=== PATIENT | male | born 1945 | race Caucasian/White ===

== ENCOUNTER 2025-04-21 15:36 | Inpatient (IN) | payer MEDICARE, SELFPAY ==
[2025-03-25 16:48] LABS: Hematocrit 44.7 % (40-54); Hemoglobin 16.1 g/dL (13.0-16.5); Immature Granulocytes Count 0.020 X10^3/uL (0.0-0.0); Mean Corp Hgb Conc 36.0 g/dL (32-36); Mean Corpuscular Volume 95.1 fL (80-94); Mean Platelet Vol. 8.9 fl (6.2-12.0); NRBC Flagged by Analyzer 0 % (0-5); Platelet Count 407 K/mm3 (150-450); RBC Distribution Width CV 12.3 % (11.6-14.6); RBC Distribution Width SD 43.3 fl (35.1-43.9); Red Blood Count 4.70 M/mm3 (4.6-6.2); White Blood Count 7.1 K/mm3 (4.4-11.0)
[2025-03-25 17:26] LABS: AST(SGOT) 18 U/L (<=37); Alanine Aminotransfer ALT/SGPT 17 U/L (<=46); Albumin, Serum 4.4 g/dL (3.4-4.8); Alkaline Phosphatase 92 U/L (40-129); Anion Gap 14 (5-15); BUN 9 mg/dL (4-19); BUN/Creat Ratio 12.1 RATIO (10-20); Bilirubin, Direct 0.25 mg/dL (0.00-0.30); Calcium,Total 9.7 mg/dL (7.6-11.0); Carbon Dioxide 24.1 mmol/L (21.0-32.0); Chloride 96 mmol/L (98-108); Globulin 3.2 g/dL (2.2-4.2); Glucose 124 mg/dL (70-99); Potassium 3.9 mmol/L (3.3-5.1)
[2025-03-25 17:41] LABS: Prothrombin Time (Protime)PT. 13.0 SECONDS (11.7-14.9)
[2025-03-25 17:42] LABS: Partial Thromboplast Time 29.2 Seconds (24.1-36.2)
--- NOTE | 2025-04-03 16:36 | PAT.ANESEVAL ---
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 When Was Last Pacemaker Check QUESTION #4 FULL TEXT: You/Your Family Experience fever (hyperthermia) with Anesthesia Last Oral Intake Last Oral intake: Last Oral Intake NPO since Meds taken in AM with sips of water? Meds patient instructed to take am of surgery PONV PONV - chief enterprise architect: PONV - chief enterprise architect Female No 04/03/25 11:09 HX of Motion Sickness No 04/03/25 11:09 HX of N/V After Surgery No 04/03/25 11:09 Non-Smoker No 04/03/25 11:09 Duration of Surgery greater Yes 04/03/25 11:09 than 60 minutes Number of Risk Factors 1 04/03/25 11:09 PONV Score Low Risk 04/03/25 11:09 Respiratory Assessment Respiratory Assessment - chief enterprise architect: Respiratory Tract Infection Hx - chief enterprise architect Hx Respiratory Tract Infection No 04/03/25 11:09 STOP Sleep Apnea STOP Sleep Apnea - chief enterprise architect: STOP Sleep Apnea - chief enterprise architect Hx Hypertension Yes: CONTROLLED WITH MEDS 04/03/25 11:09 Hx Sleep Apnea No 04/03/25 11:09 CPAP BIPAP Do you snore loudly (louder No 04/03/25 11:09 than talking or can be heard Do you often feel tired/ Yes 04/03/25 11:09 fatigued/ sleepy during daytime? Has anyone observed you stop No 04/03/25 11:09 breathing during sleep? STOP Results Positive 04/03/25 11:09 QUESTION #5 FULL TEXT : Do you snore loudly (louder than talking or can be heard through closed doors)? 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 Specify any problems Hx of Preganancy in last 3 N/A 04/03/25 11:09 Months Nurse Filling Out Transfusion DSCHRIBER 04/03/25 11:09 & Questions: Date: 04/03/25 04/03/25 11:09 Time: 11:11 04/03/25 11:09 Patient unable to answer at this time (ie. confused, unrespo /Reproduction History /Reproductive History - chief enterprise architect: /Reproductive Hx- chief enterprise architect Hx Now No 04/03/25 11:09 Gestational Age (in weeks): EDC: Hx Hx Para Hx Section SAB No 04/03/25 11:09 [facility] Medical History (Updated 04/03/25 @ 11:18 by Kavitha Sharma) Wears glasses Wears dentures Alcohol use High cholesterol Shortness of breath on exertion Leg cramps History of pain when walking History of echocardiogram History of stress test Cardiology follow-up encounter Peripheral arterial disease Smoker Sinus tachycardia Mixed hyperlipidemia LVH (left ventricular hypertrophy) Essential (primary) hypertension Home Medications ?Medication ?Instructions ?Recorded ?Last Taken ?Type aspirin 81 mg tablet 81 mg PO QDAY HEART HEALTH 02/27/25 Unknown History atorvastatin 40 mg tablet (Lipitor) 40 mg PO QHS CHOLESTEROL 02/27/25 Unknown History cilostazol 100 mg tablet 100 mg PO BID PVD 02/27/25 Unknown History lisinopril 20 2 tab PO QDAY BP 02/27/25 Unknown History mg-hydrochlorothiazide 12.5 mg tablet metoprolol succinate 25 mg 25 mg PO BID BP 02/27/25 Unknown History tablet,extended release 24 hr clopidogrel 75 mg tablet (Plavix) 75 mg PO DAILY PVD 90 days #90 tabs 03/25/25 Unknown Rx Allergy/AdvReac Type Severity Reaction Status Date / Time No Known Allergies Allergy Verified 04/03/25 11:04 Surgical History (Updated 04/03/25 @ 11:18 by Kavitha Sharma) History of esophagogastroduodenoscopy (EGD) Hx of colonoscopy Social History Smoking Status: Heavy Smoker (>10/day) Tobacco: How many years used: 56 alcohol intake: current alcohol intake frequency: 3 or more drinks per day Alcohol type: beer details: 7-8 beers daily substance use type: does not use caffeine: Yes Audit: Pertinent Findings Pertinent Findings Stress test pertinent findings: Echo 01/31/2025. EF 65%. Grade 1 left ventricular diastolic dysfunction. No significant valvular abnormalities Consult pertinent findings: Cardiology note 03/25/2025. 79-year-old white male being seen as a new patient for preop clearance. Patient has a history of severe bilateral carotid disease. CTA showed 80% in the right internal carotid artery 90% in the left internal carotid artery he was evaluated by Dr. Marion and is planned for surgical intervention on April 21, 2025. Patient had an echo on January 30 which showed the left ventricle to be small with mild LVH normal systolic function EF of 65%. He had grade 1 diastolic dysfunction the right ventricle was normal in size and function there was systolic anterior motion of the left ventricular outflow tract gradient 37 mmHg at rest that increased to 71 with Valsalva. Patient also had pharmacologic nuclear stress test which showed no evidence of scarred myocardium there was a question of mild last than 10% ischemia in the territory of the left circumflex. There was also mild ischemia in the distribution of the LAD but once again there was soft tissue attenuation. Plan. From a cardiac vascular standpoint I feel the patient can proceed with surgical intervention on his carotid disease. The patient is at risk but given his carotid anatomy and his lack of any cardiovascular symptoms I would recommend that he go ahead and proceed. Recommendation Anesthesia Recommendation Anesthesia recommendation: OPTIMIZED for anesthesia
[2025-04-21] VITALS (36 sets, daily range): BP systolic 116–185; BP diastolic 46–86; PULSE 65–92; RESP 15–20; TEMP 36.2–36.8; O2SAT 89–97; BMI 30.6
--- OUTSIDE RECORDS SUMMARY | 2025-04-21 07:14 | XMS RPT_ITS | CCD ---
Author Organization [facility] Care Team Providers Care Veterans Service Officer Name Role Phone Sheets DORenetta Primary Care Provider Sheets DORenetta Primary Care Provider Juan Miguel Rodriguez MD Unavailable Unavailab le JUAN MIGUEL RODRIGUEZ Referring Unavailable SHEETS, RENETTA Johns Primary Care Unavailable JENNIFER, JUAN MIGUEL FERRIS Referring Unavailable SHEETS, RENETTA C Primary Care Unavailable SELIGSON, ANTHONY Referring Unavailable SHEETS, RENETTA C Primary Care Unavailable JENNIFERJUAN MIGUEL ALICEA Attending Unavailable SELIGSON, ANTHONY Referring Unavailable SHEETS, RENETTA C Primary Care Unavailable SELIGSON, ANTHONY Attending Unavailable SHEETS, RENETTA C Primary Care Unavailable SELIGSON, ANTHONY Attending Unavailable SHEETS, RENETTA C Referring Unavailable SHEETS, RENETTA C Primary Care Unavailable SELIGSON, ANTHONY Referring Unavailable SHEETS, RENETTA C Primary Care Unavailable SELIGSON, ANTHONY Referring Unavailable SHEETS, RENETTA C Primary Care Unavailable SELIGSON, ANTHONY Attending Unavailable SELIGSON, ANTHONY Referring Unavailable SHEETS, RENETTA C Primary Care Unavailable Sheets Dr. Renetta DOWNEY Primary Care Physician Dr. Rojas Marion MD Attending Physician [phone] Anthony Egan MD Referring Provider Sheets Dr. Renetta DOWNEY Referring Provider Dr. Kim Corral MD Attending Physician MARLYN, RENETTA Johns Attending Unavailable SHEETS, RENETTA C Referring Unavailable SHEETS, RENETTA C Primary Care Unavailable SELIGSON, ANTHONY Referring Unavailable SHEETS, RENETTA C Primary Care Unavailable SELIGSON, ANTHONY Referring Unavailable SHEETS, RENETTA C Primary Care Unavailable SHEETS, RENETTA C Attending Unavailable SHEETS, RENETTA C Primary Care Unavailable Rojas Marion Attending Unavailable Sheets, [place] Primary Care Unavailable Anthony Egan Referring Unavailable Sheets, [place] Primary Care Unavailable Sheets, [place] Referring Unavailable Kim Corral Attending Unavailable Rojas Marion Referring Unavailable Sheets, [place] Primary Care Unavailable Rojas Marion Admitting Unavailable Rojas Marion Attending Unavailable Medications Current Medications Medication Drug Class(es) Dates Sig (Normalized) Sig (Original) aspirin 81 mg oral tablet (20 sources) Platelet Aggregation Inhibitor, Nonsteroidal Anti-inflammatory Drug Start: 02-27-2025 take 1 tablet by mouth once daily Aspirin 81 mg tablet Active 81 mg PO daily February 27, 2025 12:00am HEART [employer] Complies with drug therapy Start: 2024 take 1 tablet by kelly th once daily aspirin, enteric coated (ADULT LOW DOSE ASPIRIN) 81 mg EC tablet Take 1 tablet by mouth once daily. 2024 Active End: 03-28-2023 take 1 tablet by mouth once daily aspirin, enteric coated (ASPIRIN, ENTERIC COATED) 81 mg EC tablet Take 81 mg by mouth once daily. 0 03/28/2023 Discontinued (Other) Comment on above: Take 81 mg by mouth once daily. atorvastatin 40 mg oral tablet (20 sources) HMG-CoA Reductase Inhibitor Start: take 1 tablet by mouth at bedtime Atorvastatin (Lipitor) 40 mg tablet Active 40 mg PO AT BEDTIME February 27, 2025 12:00am CHOLESTEROL Complies with drug therapy Start: 06-07-2021 End: 11-19-2024 take 1 tablet by mouth once daily atorvastatin (LIPITOR) 40 mg tablet Indications: Mixed hyperlipidemia Take 1 tablet by mouth once daily. 30 tablet 2 11/19/2024 Active Comment on above: take 1 tablet by kelly th once daily Take 1 tablet by kelly th once daily. cilostazol 100 mg oral tablet (20 sources) Phosphodiesterase 3 Inhibitor Start: 02-28-20 take 1 tablet by mouth twice daily Cilostazol 100 mg tablet Active 100 mg PO TWICE A DAY February 27, 2025 12:00am PVD Complies with drug therapy Start: 08-20-2021 End: 11-19-2024 take 1 tablet by mouth twice daily cilostazol (PLETAL) 100 mg tablet Indications: Peripheral artery disease Take 1 tablet by mouth two times a day. 60 tablet 2 11/19/2024 Active Comment on above: Take 1 tablet by kelly th twice daily. take 1 tablet by kelly th twice a day clopidogrel 75 mg oral tablet (2 sources) P2Y12 Platelet Inhibitor Start: 03-19-20 End: 03-25-20 take 1 tablet by mouth once daily Clopidogrel (Plavix) 75 mg tablet Active 75 mg PO DAILY 90 90 0 March 25, 2025 3:49pm June 22, 2025 1:00am PVD Complies with drug therapy hydroCHLOROthiazide 12.5 mg / lisinopril 20 mg oral tablet (20 sources) Thiazide Diuretic, Angiotensin Converting Enzyme Inhibitor Start: 02-28-20 Lisinopril-Hydroch lorothiazide 20-12.5 mg tablet Active 2 {tbl} PO daily February 27, 2025 12:00am BP Complies with drug therapy Start: 06-09-2023 End: 11-19-2024 take 2 tablets by mouth once daily lisinopril-hydroCHLOROthiazide (ZESTORET IC) 20-12.5 mg per tablet Indications: Essential hypertension TAKE 2 TABLETS BY MOUTH ONCE DAILY. 60 tablet 2 11/19/2024 Active Start: 11-02-2022 take 2 tablets by mouth once daily lisinopril-hydroCHLOROthiazide (ZESTORET IC) 20-12.5 mg per tablet Indications: Essential hypertension take 2 tablets by mouth once daily 60 tablet 5 11/02/2022 Active Start: 08-20-2021 End: 04-01-2022 take 2 tablets by mouth once daily lisinopril-hydroCHLOROthiazide (PRINZIDE,ZESTORETIC) 20-12.5 mg per tablet Indications: Essential hypertension Take 2 tablets by mouth once daily. 60 tablet 5 04/01/2022 Active Comment on above: Take 2 tablets by mo uth once daily. take 2 tablets by mo uth once daily 24 hr metoprolol succinate 25 mg extended release oral tablet (20 sources) beta-Adrenergic Yas Start: 02-27-2025 take 1 tablet by mouth twice daily Metoprolol Succinate 25 mg tablet extended release 24 hr Active 25 mg PO TWICE A DAY February 27, 2025 12:00am BP Complies with drug therapy Start: 01-28-2025 take 1 tablet by kelly th twice daily metoprolol succinate ER (TOPROL XL) 25 mg 24 hr tablet Indications: Essential hypertension , Sinus tachycardia Take 1 tablet by mouth two times a day. 180 tablet 2 01/28/2025 Active Start: 01-23-2024 End: 01-28-2025 take 0.5 tablet by mouth every hour metoprolol succinate ER (TOPROL XL) 25 mg 24 hr tablet Indications: Essential hypertension , Sinus tachycardia TAKE 1/2 (ONE-HALF) OF A TABLET BY MOUTH every afternoon. 15 tablet 2 11/19/2024 01/28/2025 Discontinued Start: 08-20-2021 End: 01-22-2024 take 0.5 tablet by mouth once daily metoprolol succinate ER (TOPROL XL) 25 mg 24 hr tablet Indications: Sinus tachycardia , Essential hypertension take 1/2 tablet by mouth once daily 15 tablet 5 11/01/2023 01/22/2024 Discontinued Comment on above: Take 0.5 tablets by mouth once daily. take 1/2 tablet by m outh once daily Completed/Discontinued Medications Medication Drug Class(es) Dates Sig (Normalized) Sig (Original) 2 ml gentamicin 40 mg/ml injection (2 sources) Start: 10-11-2023 End: 10-11-2023 gentamicin 40 mg/mL 160 mg injection Start: 10-11-2023 End: 10-11-2023 gentamicin 40 mg/mL 160 mg i njection iv contrast (will be provided with radiology test) (3 sources) Start: 12-19-2024 End: 01-28-2025 inject 1 dose intravenously once iv contrast (will be provided with radiology test) CTA Head/Neck W No IV access, insert saline lock prior to the sedation, infusion, injection for imaging exam. Discontinue saline lock post exam. If Pt. has a central line or IVAD, may access for administration according to line specific nursing protocol. Once exam is complete flush line and de-access according to line specific nursing protocol in the CT contrast administration guidelines link. 1 each 12/19/2024 01/28/2025 Discontinued Start: 12-19-2024 inject 1 dose intravenously on ce iv contrast (will be provided with radiology test) CTA Head/Neck W No IV access, insert saline lock prior to the sedation, infusion, injection for imaging exam. Discontinue saline lock post exam. If Pt. has a central line or IVAD, may access for administration according to line specific nursing protocol. Once exam is complete flush line and de-access according to line specific nursing protocol in the CT contrast administration guidelines link. 1 each 12/19/2024 Active levoFLOXacin 750 mg oral tablet (2 sources) Quinolone Antimicrobial Start: 10-11-2023 End: 10-12-2023 take 1 tablet by mouth once daily levoFLOXacin (LEVAQUIN) 750 mg tablet Take 1 tablet by mouth once daily for 1 day. Take on the day after your procedure 1 tablet 0 10/11/2023 10/12/2023 Start: 08-30-2023 End: 09-02-2023 levoFLOXacin (LEVAQUIN) 750 mg tablet Take 1 tablet by mouth once daily for 3 days. Start day before procedure and take for 3 consecutive days 3 tablet 0 08/30/2023 09/02/2023 Active Comment on above: Take 1 tablet by [facility] daily for 3 days. Start day before procedure and take for 3 consecutive days regadenoson 0.4 mg injection (LEXISCAN) (2 sources) Start: 01-30-2025 End: 01-30-2025 regadenoson 0.4 mg injection (LEXISCAN) Start: 01-30-2025 End: 01-30-2025 0.4 mg, INTRAVENOUS, ONCE, 1 dose, On Arleen 01/30/25 at 1430, Give 0.4 mg (5 mL) over ~10 seconds, followed immediately by a 5 mL saline flush. Wait 10-20 seconds, then administer the radionuclide myocardial perfusion imaging agent. Problems Active Problems Problem Classification Problem Date Documented Da te Episodic/Chronic Alcohol-related disorders (20 sources) Continuous chronic alcoholism; Translations: [Alcohol dependence, uncomplicated] Onset: 03-28-2023 03-28-2023 Chronic Cardiac dysrhythmias (20 sources) Sinus tachycardia; Translations: [Tachycardia, unspecified] Onset: 10-15-2021 Episodic Chronic ulcer of skin (20 sources) Non-pressure chronic ulcer of other part of left foot with unspecified severity; Translations: [Ulcer of other part of foot] Onset: 12-27-2017 Resolved: 08-14-2018 08-14-2018 Chronic Coronary atherosclerosis and other heart disease (14 sources) Silent myocardial ischemia; Translations: [Silent myocardial ischemia] Onset: 01-28-2025 01-28-2025 Chronic Disorders of lipid metabolism (20 sources) Mixed hyperlipidemia; Translations: [Mixed hyperlipidemia] Onset: 12-27-2017 12-27-2017 Chronic Essential hypertension (20 sources) Essential hypertension; Translations: [Essential (primary) hypertension] Onset: 12-27-2017 Chronic Comment on above: CONTROLLED WITH MEDS Hyperplasia of prostate (1 source) Benign prostatic hyperplasia; Translations: [Benign prostatic hyperplasia without lower urinary tract symptoms] 10-27-2023 Chronic Neoplasms of unspecified nature or uncertain behavior (1 source) Essential thrombocythemia; Translations: [Essential (hemorrhagic) thrombocythemia] Chronic Occlusion or stenosis of precerebral arteries (19 sources) Bilateral stenosis of carotid arteries; Translations: [Occlusion and stenosis of bilateral carotid arteries] Onset: 12-19-2024 12-19-2024 Chronic Other and ill-defined heart disease (20 sources) Left ventricular hypertrophy; Translations: [Cardiomegaly] Onset: 11-26-2020 11-26-2020 Chronic Other and ill-defined heart disease (1 source) Cardiomegaly; Translations: [LVH (left ventricular hypertrophy)] Onset: 11-26-2020 Chronic Other and ill-defined heart disease (2 sources) Other ill-defined heart diseases; Translations: [Acquired left ventricular outflow tract obstruction] 03-25-2025 Chronic Other circulatory disease (16 sources) Stenosis of left subclavian artery; Translations: [Stricture of artery] Onset: 11-17-2024 11-17-2024 Chronic Other circulatory disease (1 source) Stricture of artery; Translations: [Stenosis of left subclavian artery] Onset: 11-17-2024 Chronic Other circulatory disease (19 sources) Carotid bruit; Translations: [Other specified symptoms and signs involving the circulatory and respiratory systems] Onset: 11-17-2024 11-17-2024 Episodic Other circulatory disease (2 sources) Other specified symptoms and signs involving the circulatory and respiratory systems; Translations: [Right carotid bruit] Onset: 11-17-2024 Episodic Other lower respiratory disease (14 sources) Dyspnea on exertion; Translations: [Other forms of dyspnea] Onset: 01-28-2025 01-09-2025 Episodic Other lower respiratory disease (2 sources) Other forms of dyspnea; Translations: [Dyspnea on exertion] Onset: 01-28-2025 Episodic Other nutritional; endocrine; and metabolic disorders (20 sources) Obese class I; Translations: [Obesity, unspecified] Onset: 10-31-2017 Chronic Other nutritional; endocrine; and metabolic disorders (20 sources) Body mass index 30+ - obesity; Translations: [Body mass index (BMI) 30.0-30.9, adult] Onset: 10-01-2021 Chronic Other nutritional; endocrine; and metabolic disorders (20 sources) Amyloidosis; 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, unspecified] Onset: 10-04-2022 Chronic Other screening for suspected conditions (not mental disorders or infectious disease) (20 sources) Patient encounter status; Translations: [Encounter for screening for malignant neoplasm of prostate] Onset: 01-19-2018 Episodic Aggie-; endo-; and myocarditis; cardiomyopathy (except that caused by tuberculosis or sexually transmitted disease) (20 sources) Cardiomyopathy; Translations: [Other cardiomyopathies] Onset: 10-04-2022 Chronic Peripheral and visceral atherosclerosis (20 sources) Peripheral vascular disease, unspecified; Translations: [Peripheral vascular disease, unspecified] Onset: 10-15-2021 Chronic Comment on above: ON BLOOD THINNERS Residual codes; unclassified (1 source) Tobacco use and exposure - finding; Translations: [Tobacco use] 12-19-2024 Episodic Residual codes; unclassified (1 source) Tobacco use; Translations: [Tobacco use] Onset: 12-19-2024 Episodic Substance-related disorders (20 sources) Smoker; Translations: [Nicotine dependence, unspecified, uncomplicated] Onset: 04-01-2022 04-01-2022 Chronic Transient cerebral ischemia (6 sources) Carotid artery syndrome hemispheric; Translations: [Carotid artery syndrome (hemispheric)] Onset: 12-19-2024 12-24-2024 Chronic Unclassified (2 sources) Peripheral artery disease 09-25-2024 Unclassified (3 sources) Patient encounter status 01-28-2025 Unclassified (2 sources) Obesity, Class I, BMI 30-34.9; Translations: [Obesity, Class I, BMI 30-34.9] Onset: 10-31-2017 Unclassified (1 source) I65.23 - Occlusion and stenosis of bilateral carotid arteries,Z01.818 - Encounter for other preprocedural examination Unclassified (1 source) surgery clearance for left endartectomy on 04/21/25 Onset: 04-11-2025 Past or Other Problems Problem Classification Problem Date Documented Da te Episodic/Chronic Fracture of lower limb (20 sources) Closed fracture of calcaneus; Translations: [Nondisplaced fracture of body of right calcaneus, initial encounter for closed fracture] Onset: 03-09-2015 03-09-2015 Episodic Neoplasms of unspecified nature or uncertain behavior (20 sources) Thrombocytosis; Translations: [Thrombocytosis] Onset: 03-28-2023 Episodic Other gastrointestinal disorders (20 sources) Occult blood in stools; Translations: [Other fecal abnormalities] Onset: 01-19-2018 02-16-2018 Episodic Residual codes; unclassified (20 sources) History of clinical finding in subject; Translations: [Personal history of other specified conditions] Onset: 03-28-2023 03-28-2023 Episodic Results Test Name Value Interpretation Reference Range Facility [facility] LITA MEYER ([id number]) 1945 M Date Time Provider Department 04/16/25 RENETTA CLINECHAPITO During your visit today, we recorded the following information about you: Renetta Cline DO 04/16/2025 4:09 PM Signed ----- Message from Juan Miguel Rodriguez MD sent at 04/16/2025 2:31 PM EST ----- dalila Hdz for the delay in response, it will be better to postpone his carotid endarterectomy surgery and schedule him for cardiac catheterization prior to this operation as he does have two-vessel ischemia and he is at moderate risk for coronary artery events perioperatively. Thank you. ----- Message ----- From: Renetta Cline DO Sent: 04/11/2025 4:33 PM EST To: Juan Miguel Rodriguez MD [place], Dr. Rodriguez, I see that you reviewed Lita's stress test, and it indicates moderate risk. Is he cleared by you for left carotid endarterectomy scheduled for 04/21? Thanks DO Marlyn Vuong Kimberly C, DO 04/16/2025 4:13 PM Signed Please call pt - he will need to postpone his carotid artery surgery. He will need to see the liquor inspector for a heart catheterization before he can be cleared for the surgery. He should call the office of Dr. Rodriguez for f/u instructions regarding his abnormal stress test DO Shana Vuong LilianaMEENA 04/16/2025 4:43 PM Signed Tried calling pt. (It is [employer] .) it is full. Please try again tomorrow. Liliana PappaszakiMEENA Janie, MA 04/17/2025 3:58 PM Signed Tried to call patient no answer and not able to leave message. Left message informing patient's vascular office that of all information and that Dr. Cline will not be clearing patient until he has a heart catheterization. MEENA Jones Janie, MA 04/18/2025 11:37 AM Signed Received fax from [facility] Dr. Corral office visit note clearing patient for surgery. Placed on Dr. Cline desk to be reviewed. MEENA Jones Janie, MA 04/18/2025 12:09 PM Signed Karina from [facility] called back stating that Dr. Corral cardiology cleared patient and would like to know if Dr. Cline could please send her clearance also so patient can have his surgery as scheduled on Monday. Called Dr. Cline as she is out of the office and she states yes already signed clearance form may be faxed, she was just waiting to hear from cardiology that he was cleared. Left message informing Karina form has been faxed. Yury Erwin MA Allergies As of Date: 04/16/2025 (No Known Allergies) Date Reviewed: 04/11/2025 Reviewed by: Renetta Cline DO - Fully Assessed Prescriptions as of 04/18/2025 - cilostazol (PLETAL) 100 mg tablet TAKE 1 TABLET BY MOUTH TWICE DAILY - lisinopril-hydroCHLOR Othiazide (ZESTORETIC) 20-12.5 mg per tablet TAKE 2 TABLETS BY MOUTH ONCE DAILY - atorvastatin (LIPITOR) 40 mg tablet TAKE 1 TABLET BY MOUTH ONCE DAILY - metoprolol succinate ER (TOPROL XL) 25 mg 24 hr tablet Take 1 tablet by mouth two times a day. - aspirin, enteric coated (ADULT LOW DOSE ASPIRIN) 81 mg EC tablet Take 1 tablet by mouth once daily. Problem List As Of Date 04/16/2025 Noted Resolved Closed nondisplaced fracture of body of right c*03/09/2015 Obesity, Class I, BMI 30-34.9 [E66.811] 10/31/2017 Chronic ulcer of left foot (HCC) [L97.529] 12/27/2017 08/14/2018 Essential hypertension [I10] 12/27/2017 Mixed hyperlipidemia [E78.2] 12/27/2017 Encounter for screening colonoscopy [Z12.11] 01/19/2018 Heme positive stool [R19.5] 01/19/2018 LVH (left ventricular hypertrophy) [I51.7] 11/26/2020 BMI 31.0-31.9,adult [Z68.31] 10/01/2021 Peripheral artery disease (HCC) [I73.9] 10/15/2021 Sinus tachycardia [R00.0] 10/15/2021 Smoker [F17.200] 04/01/2022 Amyloidosis, 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] 10/04/2022 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] 10/04/2022 Thrombocytosis [D75.839] 03/28/2023 Alcohol dependence, daily use (HCC) [F10.20] 03/28/2023 History of elevated prostate specific antigen (*03/28/2023 Stenosis of left subclavian artery [I77.1] 11/17/2024 Right carotid bruit [R09.89] 11/17/2024 Carotid stenosis, asymptomatic, bilateral [I65.*12/19/2024 Encounter for screening for cardiovascular diso*01/28/2025 Dyspnea on exertion [R06.09] 01/28/2025 Silent myocardial ischemia [I25.6] 01/28/2025 Encounter Status:Closed by YURY ERWIN on 04/17/25 Normal [facility] Type AND Screen - PAT ONLYon 04-08-2025 ABO and Rh group Nom (Bld) Blood group AB Rh(D) positive Normal [facility] Comment on above: Order Comment: Surge ry Date: 04/21/25 Reason for Laboratory Test PREOP [id number] N/A N N S LEFT CAROTID ENDARTERECTOMY Performed By: #### B TSPAT #### [facility] [address] [place], [place], [id number] MR/PAT.ANEon 04-03-2025 MR/PAT.ANE [facility] Medical Records Department [address] [place] [address] PAT - Anesthesia 04/03/25 [id number] MR#: [id number] Acct: [id number] Name: LITA MEYER Rep #: [id number] : 1945 79 From: Ac Rodríguez MD PCP: Dr. Renetta Cline, DO Status:PRE IN Y Race: C Location: [facility] Pre-Assessment Diagnosis/Proposed Procedure Planned Operative Procedure(s): LEFT ENDARTERECTOMY CAROTID Anesthesia History Anesthesia History - crimper operator: Anesthesia History - crimper operator Hx Hospitalization No 04/03/25 11:09 Any Problems With Anesthesia No 04/03/25 11:09 Cholinesterase deficiency No 04/03/25 11:09 You/Your Family Experience No 04/03/25 11:09 fever (hyperthermia) with Relationship Recent Exposure to Contagious Disease Does patient have nerve No 04/03/25 11:09 stimulator Patient instructed to have device shut off --Does patient have Pacemaker or ICD? When Was Last Pacemaker Check QUESTION #4 FULL TEXT: You/Your Family Experience fever (hyperthermia) with Anesthesia Last Oral Intake Last Oral intake: Last Oral Intake NPO since Meds taken in AM with sips of water? Meds patient instructed to take am of surgery PONV PONV - crimper operator: PONV - crimper operator Female No 04/03/25 11:09 HX of Motion Sickness No 04/03/25 11:09 HX of N/V After Surgery No 04/03/25 11:09 Non-Smoker No 04/03/25 11:09 Duration of Surgery greater Yes 04/03/25 11:09 than 60 minutes Number of Risk Factors 1 04/03/25 11:09 PONV Score Low Risk 04/03/25 11:09 Respiratory Assessment Respiratory Assessment - crimper operator: Respiratory Tract Infection Hx - crimper operator Hx Respiratory Tract Infection No 04/03/25 11:09 STOP Sleep Apnea STOP Sleep Apnea - crimper operator: STOP Sleep Apnea - crimper operator Hx Hypertension Yes: CONTROLLED WITH MEDS 04/03/25 11:09 Hx Sleep Apnea No 04/03/25 11:09 CPAP BIPAP Do you snore loudly (louder No 04/03/25 11:09 than talking or can be heard Do you often feel tired/ Yes 04/03/25 11:09 fatigued/ sleepy during daytime? Has anyone observed you stop No 04/03/25 11:09 breathing during sleep? STOP Results Positive 04/03/25 11:09 QUESTION #5 FULL TEXT : Do you snore loudly (louder than talking or can be heard through closed doors)? 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 Specify any problems Hx of Preganancy in last 3 N/A 04/03/25 11:09 Months Nurse Filling Out Transfusion DSCHRIBER 04/03/25 11:09 Questions: Date: 04/03/25 04/03/25 11:09 Time: 11:11 04/03/25 11:09 Patient unable to answer at this time (ie. confused, unrespo /Reproductio n History /Reproductiv e History - crimper operator: /Reproductiv e Hx- crimper operator Hx Now No 04/03/25 11:09 Gestational Age (in weeks): EDC: Hx Hx Para Hx Section SAB No 04/03/25 11:09 [facility], [facility] Medical History (Updated 04/03/25 @ 11:18 by Kavitha Sharma) Wears glasses Wears dentures Alcohol use High cholesterol Shortness of breath on exertion Leg cramps History of pain when walking History of echocardiogram History of stress test Cardiology follow-up encounter Peripheral arterial disease Smoker Sinus tachycardia Mixed hyperlipidemia LVH (left ventricular hypertrophy) Essential (primary) hypertension Home Medications ???Medication ???Instructions ???Recorded ???Last Taken ???Type aspirin 81 mg tablet 81 mg PO QDAY [facility] 5 Unknown History atorvastatin 40 mg tablet (Lipitor) 40 mg PO QHS CHOLESTEROL Unknown History cilostazol 100 mg tablet 100 mg PO BID PVD 02/27/25 Unknown History lisinopril 20 2 tab PO QDAY BP 02/27/25 Unknown History mg-hydrochlorothiazid e 12.5 mg tablet metoprolol succinate 25 mg 25 mg PO BID BP 02/27/25 Unknown H istory tablet,extended release 24 hr clopidogrel 75 mg tablet (Plavix) 75 mg PO DAILY PVD 90 days #90 ta bs 03/25/25 Unknow (more content not included)... Normal [facility] Basic Metabolic Profile (BMP )on 03-25-2025 BUN/CRE 12.1 RATIO Normal 03-31 [facility] Comment on above: Performed By: #### L 300.4310, L500.2500, L500.3400, L300.3900, L100.0100 #### [facility] [address] [place], [address] Calcium [Mass/Vol] 9.7 mg/dL Normal 7.6-11.0 [facility] Comment on above: Performed By: #### L 300.4310, L500.2500, L500.3400, L300.3900, L100.0100 #### [facility] [address] [place], [address] Chloride [Moles/Vol] 96 mmol/L Low 98-108 [facility] Comment on above: Performed By: #### L 300.4310, L500.2500, L500.3400, L300.3900, L100.0100 #### [facility] [address] [place], [address] CO2 [Moles/Vol] 24.1 mmol/L Normal 21.0-32.0 [facility] Comment on above: Performed By: #### L 300.4310, L500.2500, L500.3400, L300.3900, L100.0100 #### [facility] [address] [place], [address] Creatinine [Mass/Vol] 0.72 mg/dL Normal 0.70-1.20 [facility] Comment on above: Performed By: #### L 300.4310, L500.2500, L500.3400, L300.3900, L100.0100 #### [facility] [address] [place], [address] GAP 14 Normal 5-15 [facility] Comment on above: Performed By: #### L 300.4310, L500.2500, L500.3400, L300.3900, L100.0100 #### [facility] [address] [place], [address] GFR/1.73 sq M.predicted among non-blacks MDRD (S/P/Bld) [Vol rate/Area] 94 mL/min/{1.73_m2} Normal >60 [facility] Comment on above: Result Comment: mL/m in/1.73m2 CKD-EPI Creatinine Equation (2020) Performed By: #### L 300.4310, L500.2500, L500.3400, L300.3900, L100.0100 #### [facility] [address] [place], [address] Glucose [Mass/Vol] 124 mg/dL High 70-99 [facility] Comment on above: Performed By: #### L 300.4310, L500.2500, L500.3400, L300.3900, L100.0100 #### [facility] [address] [place], [address] Potassium [Moles/Vol] 3.9 mmol/L Normal 3.3-5.1 [facility] Comment on above: Performed By: #### L 300.4310, L500.2500, L500.3400, L300.3900, L100.0100 #### [facility] [address] [place], [address] Sodium [Moles/Vol] 134 mmol/L Normal 133-145 [facility] Comment on above: Performed By: #### L 300.4310, L500.2500, L500.3400, L300.3900, L100.0100 #### [facility] [address] [place], [address] Urea nitrogen [Mass/Vol] 9 mg/dL Normal 4-19 [facility] Comment on above: Performed By: #### L 300.4310, L500.2500, L500.3400, L300.3900, L100.0100 #### [facility] [address] [place], [address] CBC W/Diff, Automatedon 10-1 Absolute Lymph 1.92 X10 3/uL Normal 0.83-4.51 [facility] Comment on above: Performed By: #### L 300.4310, L500.2500, L500.3400, L300.3900, L100.0100 #### [facility] [address] [place], [address] Absolute Neut 4.3 X10 3/uL Normal 2.0-7.7 [facility] Comment on above: Performed By: #### L 300.4310, L500.2500, L500.3400, L300.3900, L100.0100 #### [facility] [address] [place], [address] Basophils/100 WBC (Bld) 1.0 % Normal 0-1 [facility] Comment on above: Performed By: #### L 300.4310, L500.2500, L500.3400, L300.3900, L100.0100 #### [facility] [address] [place], [address] Eosinophils/100 WBC (Bld) 1.3 % Normal 0-5 [facility] Comment on above: Performed By: #### L 300.4310, L500.2500, L500.3400, L300.3900, L100.0100 #### [facility] [address] [place], [address] Erythrocyte distribution width (RBC) [Ratio] 12.3 % Normal 11.6-14.6 [facility] Comment on above: Performed By: #### L 300.4310, L500.2500, L500.3400, L300.3900, L100.0100 #### [facility] [address] [place], [address] Hematocrit (Bld) [Volume fraction] 44.7 % Normal 40-54 [facility] Comment on above: Performed By: #### L 300.4310, L500.2500, L500.3400, L300.3900, L100.0100 #### [facility] [address] [place], [address] Hemoglobin (Bld) [Mass/Vol] 16.1 g/dL Normal 13.0-16.5 [facility] Comment on above: Performed By: #### L 300.4310, L500.2500, L500.3400, L300.3900, L100.0100 #### [facility] [address] [place], [address] IG% 0.300 Normal 0.0-0.9 [facility] Comment on above: Result Comment: IG% - Immature Granulocytes (promyelocytes, myelocytes and metamyelocytes) > 1% indicates that a LEFT SHIFT is Present. Performed By: #### L 300.4310, L500.2500, L500.3400, L300.3900, L100.0100 #### [facility] [address] [place], [address] Lymphocytes/100 WBC (Bld) 27.1 % Normal 19-41 [facility] Comment on above: Performed By: #### L 300.4310, L500.2500, L500.3400, L300.3900, L100.0100 #### [facility] [address] [place], [address] MCH (RBC) [Entitic mass] 34.3 pg High 27.0-32.0 [facility] Comment on above: Performed By: #### L 300.4310, L500.2500, L500.3400, L300.3900, L100.0100 #### [facility] [address] [place], [address] MCHC (RBC) [Mass/Vol] 36.0 g/dL Normal 32-36 [facility] Comment on above: Performed By: #### L 300.4310, L500.2500, L500.3400, L300.3900, L100.0100 #### [facility] [address] [place], [address] MCV (RBC) [Entitic vol] 95.1 fL High 80-94 [facility] Comment on above: Performed By: #### L 300.4310, L500.2500, L500.3400, L300.3900, L100.0100 #### [facility] [address] [place], [address] Monocytes/100 WBC (Bld) 10.2 % High 0-10 [facility] Comment on above: Performed By: #### L 300.4310, L500.2500, L500.3400, L300.3900, L100.0100 #### [facility] [address] [place], [address] Neutrophils/100 WBC (Bld) 60.1 % Normal 47-70 [facility] Comment on above: Performed By: #### L 300.4310, L500.2500, L500.3400, L300.3900, L100.0100 #### [facility] [address] [place], [address] Nucleated RBC (Bld) [#/Vol] 0 10*3/uL Normal 0-5 [facility] Comment on above: Performed By: #### L 300.4310, L500.2500, L500.3400, L300.3900, L100.0100 #### [facility] [address] [place], [address] Platelet mean volume (Bld) [Entitic vol] 8.9 fL Normal 6.2-12.0 [facility] Comment on above: Performed By: #### L 300.4310, L500.2500, L500.3400, L300.3900, L100.0100 #### [facility] [address] [place], [address] Platelets (Bld) [#/Vol] 407 10*3/uL Normal 150-450 [facility] Comment on above: Performed By: #### L 300.4310, L500.2500, L500.3400, L300.3900, L100.0100 #### [facility] [address] [place], [address] RBC (Bld) [#/Vol] 4.70 10*6/uL Normal 4.6-6.[address] [facility] Comment on above: Performed By: #### L 300.4310, L500.2500, L500.3400, L300.3900, L100.0100 #### [facility] [address] [place], [place], [id number] RDW SD 43.3 fl Normal 35.1-43.9 [facility] Comment on above: Performed By: #### L 300.4310, L500.2500, L500.3400, L300.3900, L100.0100 #### [facility] [address] [place], [place], [id number] WBC (Bld) [#/Vol] 7.1 10*3/uL Normal 4.4-11.0 [facility] Comment on above: Performed By: #### L 300.4310, L500.2500, L500.3400, L300.3900, L100.0100 #### [facility] [address] [place], [place], [id number] [facility] 03-25-2025 [facility] Telephone (AGFAMPLE) LITA MEYER ([id number]) 1945 M Date Time Provider Department 03/25/25 RENETTA CLINE During your visit today, we recorded the following information about you: Yury Erwin MA 03/25/2025 2:22 PM Signed [facility] Surgical Clearance for Left Endarterectomy on 04/21/[address] Cline green folder to be filled out and signed. Krystal from [facility] also left message regarding this and states when patient was in their office his BP was 200. Please advise. MEENA Jones Kimberly C, DO 03/25/2025 2:48 PM Signed Please have pt make appt to see me for surgical clearance DO Marlyn Vuong Kimberly C, DO 03/28/2025 7:33 AM Signed It can be 20 minutes DO Cristian Vuong Janie, MA 03/28/2025 11:49 AM Signed Form received and placed in Dr. Cline green folder to be filled out and signed. MEENA Jones Kimberly C, DO 04/02/2025 12:27 PM Signed Pt needs appt Renetta Cline DO Allergies As of Date: 03/25/2025 (No Known Allergies) Date Reviewed: 02/07/2025 Reviewed by: Angelina Rojo OCCA - Fully Assessed Reason for Visit: Forms [913] Cmt: [facility] Surgical Clearance for Left Endarterectomy on 04/21/25 Prescriptions as of 04/02/2025 - metoprolol succinate ER (TOPROL XL) 25 mg 24 hr tablet Take 1 tablet by mouth two times a day. - cilostazol (PLETAL) 100 mg tablet Take 1 tablet by mouth two times a day. - atorvastatin (LIPITOR) 40 mg tablet Take 1 tablet by mouth once daily. - lisinopril-hydroCHLOR Othiazide (ZESTORETIC) 20-12.5 mg per tablet TAKE 2 TABLETS BY MOUTH ONCE DAILY. - aspirin, enteric coated (ADULT LOW DOSE ASPIRIN) 81 mg EC tablet Take 1 tablet by mouth once daily. Problem List As Of Date 03/25/2025 Noted Resolved Closed nondisplaced fracture of body of right c*03/09/2015 Obesity, Class I, BMI 30-34.9 [E66.811] 10/31/2017 Chronic ulcer of left foot (HCC) [L97.529] 12/27/2017 08/14/2018 Essential hypertension [I10] 12/27/2017 Mixed hyperlipidemia [E78.2] 12/27/2017 Encounter for screening colonoscopy [Z12.11] 01/19/2018 Heme positive stool [R19.5] 01/19/2018 LVH (left ventricular hypertrophy) [I51.7] 11/26/2020 BMI 31.0-31.9,adult [Z68.31] 10/01/2021 Peripheral artery disease (HCC) [I73.9] 10/15/2021 Sinus tachycardia [R00.0] 10/15/2021 Smoker [F17.200] 04/01/2022 Amyloidosis, 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] 10/04/2022 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] 10/04/2022 Thrombocytosis [D75.839] 03/28/2023 Alcohol dependence, daily use (HCC) [F10.20] 03/28/2023 History of elevated prostate specific antigen (*03/28/2023 Stenosis of left subclavian artery [I77.1] 11/17/2024 Right carotid bruit [R09.89] 11/17/2024 Carotid stenosis, asymptomatic, bilateral [I65.*12/19/2024 Encounter for screening for cardiovascular diso*01/28/2025 Dyspnea on exertion [R06.09] 01/28/2025 Silent myocardial ischemia [I25.6] 01/28/2025 Encounter Status:Closed by YURY ERWIN on 03/28/25 Normal [facility] Cardiology Visit Reporton Cardiology Visit Report [facility] [address] [place] [address] OFFICE VISIT Date of Service: 03/25/25 MR#: [id number] Acct: [id number] Name: LITA MEYER Rep #: [id number] : 1945 Provider: Dr. Kim petty MD Age/Sex: 79/M Location: [facility] Status: Signed HPI HPI History of Present Illness Details: Patient is a pleasant 79-year-old white male being seen as a new patient for preop clearance. Patient has a history of severe bilateral carotid disease. CTA showed 80% in the right internal carotid artery 90% in the left internal carotid artery he was evaluated by Dr. Marion and is plan for surgical intervention on April 21, 2025. After seeing Dr. Marion the patient was confused and did not get his Plavix filled. I went over that with him in detail and sent a new prescription into his pharmacy. The patient had an echocardiogram done January 30 which showed the left ventricle to be small with mild LVH normal systolic function EF of 65%. He had grade 1 diastolic dysfunction the right ventricle was normal in size and function there was systolic anterior motion left ventricular outflow tract gradient 37 mmHg at rest that increased to 71 with Valsalva. There were no significant valvular abnormalities. Compared to a previous echo from 2020 the LVOT gradients had increased. The patient denies any syncope or near syncope. He denies any chest pain denies any significant PND orthopnea. He does report dyspnea on exertion which has been stable over the last 6 months. Patient also had pharmacologic nuclear stress test which showed no evidence of scarred myocardium there was a question of mild less than 10% ischemia in the territory of the left circumflex. The left ventricle is normal in size and function the test was limited by arm and soft tissue attenuation. There was also mild ischemia in the distribution of the LAD but once again there was soft tissue attenuation. The patient lives alone he has an older brother who lives in an extended care facility in the [facility] he has no children he is never been . Intake Vital Signs 03/25/25 15:01 03/25/25 15:10 03/25/25 15:12 Height 5 ft 9 in Weight: 209 lb BMI 30.8 BP 196/91 H 138/74 H 152/76 H Blood Pressure Location Rt brachial Rt brachial Rt brachial Position Sitting Sitting Sitting Respiration 18 Pulse 100 Pulse Source Monitor Pulse Oximetry (%) 93 Oxygen Delivery Method room air Intake Visit Reasons: Pre-Op Cardiovasc. Assessment, FOR LICE, SEE NOTE [employer] Required: No Accompanied by: Self Is patient in pain?: No Allergies No Known Allergies Allergy (Verified 03/25/25 14:58) Medications ???Medication ???Instructions ???Recorded ???Confirmed ???Type aspirin 81 mg tablet 81 mg PO QDAY 02/27/25 03/25/25 Hi story atorvastatin 40 mg tablet (Lipitor) 40 mg PO QDAY 02/27/25 03/25/25 History cilostazol 100 mg tablet 100 mg PO BID 02/27/25 03/25/25 Hi story lisinopril 20 2 tab PO QDAY 02/27/25 03/25/25 Hi story mg-hydrochlorothiazid e 12.5 mg tablet metoprolol succinate 25 mg 25 mg PO BID 02/27/25 03/25/25 His tory tablet,extended release 24 hr clopidogrel 75 mg tablet (Plavix) 75 mg PO DAILY 90 days #90 tabs 1 014/25 10/14/25 Rx Ejection fraction %: 65 Have you fallen in the past year?: Yes [facility] Medical History Alcohol dependence Peripheral arterial disease Smoker Sinus tachycardia Mixed hyperlipidemia LVH (left ventricular hypertrophy) Essential (primary) hypertension Surgical History No significant past surgical history Social History Smoking Status: Heavy Smoker (>10/day) Tobacco: How many years used: 56 alcohol intake: current alcohol intake frequency: 3 or more drinks per day Alcohol type: beer details: 7-8 beers daily substance use type: does not use caffeine: Yes ROS Const Const: Negative for fatigue or weakness ENT ENT: Negative for dizziness or balance problems Cardio Chest Pain: No Palpitations: No Edema: None Muscle aches with walking: None Resp Respiratory: Positive for SOB with activity; Negative for SOB at rest or SOB orthopnea SOB lying down GI GI: Negative nausea, vomiting or heartburn Musc Musc: Negative for muscle weakness or balance problems Neuro Neuro: Negative for dizziness, lightheadedness, near syncope, syncope or weakness Endo Endo: Negative for fatigue Cardiology Exam Const Appearance: cooperative, comfortable, no acute distress and disheveled Nutritional Appearance: obese Patient with a significant resting tremor. Head Head: normal to inspection Eyes General: (more content not included)... Normal [facility] Liver Profileon 03-25-2025 Albumin [Mass/Vol] 4.4 g/dL Normal 3.4-4.8 [facility] Comment on above: Performed By: #### L 300.4310, L500.2500, L500.3400, L300.3900, L100.0100 #### [facility] [address] [place], [place], [id number] ALK PHOS 92 U/L Normal 40-129 [facility] Comment on above: Performed By: #### L 300.4310, L500.2500, L500.3400, L300.3900, L100.0100 #### [facility] [address] [place], [address] ALT [Catalytic activity/Vol] 17 U/L Normal <=46 [facility] Comment on above: Performed By: #### L 300.4310, L500.2500, L500.3400, L300.3900, L100.0100 #### [facility] [address] [place], [address] AST [Catalytic activity/Vol] 18 U/L Normal <=37 [facility] Comment on above: Performed By: #### L 300.4310, L500.2500, L500.3400, L300.3900, L100.0100 #### [facility] [address] [place], [address] Bilirubin [Mass/Vol] 0.59 mg/dL Normal 0.00-1.30 [facility] Comment on above: Performed By: #### L 300.4310, L500.2500, L500.3400, L300.3900, L100.0100 #### [facility] [address] [place], [address] Bilirubin.direct [Mass/Vol] 0.25 mg/dL Normal 0.00-0.30 [facility] Comment on above: Performed By: #### L 300.4310, L500.2500, L500.3400, L300.3900, L100.0100 #### [facility] [address] [place], [address] Globulin (S) [Mass/Vol] 3.2 g/dL Normal 2.2-4.2 [facility] Comment on above: Performed By: #### L 300.4310, L500.2500, L500.3400, L300.3900, L100.0100 #### [facility] [address] [place], [address] T PROT 7.6 g/dL Normal 5.9-8.4 [facility] Comment on above: Performed By: #### L 300.4310, L500.2500, L500.3400, L300.3900, L100.0100 #### [facility] [address] [place], [address] Partial Thromboplast Timeon 03-25-2025 aPTT Coag (Bld) [Time] 29.2 s Normal 24.1-36.2 [facility] Comment on above: Performed By: #### L 300.4310, L500.2500, L500.3400, L300.3900, L100.0100 #### [facility] [address] [place], [address] Prothrombin Time w/INRon INR Coag (PPP) [Relative time] 1.0 {INR} Normal [facility] Comment on above: Performed By: #### L 300.4310, L500.2500, L500.3400, L300.3900, L100.0100 #### [facility] [address] [place], [address] PT Coag (PPP) [Time] 13.0 s Normal 11.7-14.9 [facility] Comment on above: Performed By: #### L 300.4310, L500.2500, L500.3400, L300.3900, L100.0100 #### [facility] [address] [place], [address] MR/BMS.BVSon 03-19-2025 MR/BMS.BVS [facility] [address] [place] [address] OFFICE VISIT Date of Service: 03/19/25 MR#: [id number] Acct: [id number] Name: LITA MEYER Rep #: [id number] : 1945 Provider: Dr. Rojas Marion MD Age/Sex: 79/M Location: BMS.BVS Status: Signed Intake Vital Signs 03/19/25 15:05 Weight: 209 lb BP 161/90 H Blood Pressure Location Lt brachial Position Sitting Respiration 16 Pulse 92 Pulse Source Monitor Temp 98.2 F Temp Source Temporal Pulse Oximetry (%) 96 Oxygen Delivery Method room air Intake Visit Reasons: Carotid Stenosis Is patient in pain?: No Allergies No Known Allergies Allergy (Verified 03/19/25 15:06) Medications ???Medication ???Instructions ???Recorded ???Confirmed ???Type aspirin 81 mg tablet 81 mg PO QDAY 02/27/25 03/19/25 Hi story atorvastatin 40 mg tablet (Lipitor) 40 mg PO QDAY 02/27/25 03/19/25 History cilostazol 100 mg tablet 100 mg PO BID 02/27/25 03/19/25 Hi story lisinopril 20 2 tab PO QDAY 02/27/25 03/19/25 Hi story mg-hydrochlorothiazid e 12.5 mg tablet metoprolol succinate 25 mg 25 mg PO BID 02/27/25 03/19/25 His tory tablet,extended release 24 hr clopidogrel 75 mg tablet (Plavix) 75 mg PO DAILY 90 days #90 tabs 1 03/19/25 Rx Have you fallen in the past year?: Yes PFSH Medical History Peripheral arterial disease Smoker Sinus tachycardia Mixed hyperlipidemia LVH (left ventricular hypertrophy) Essential (primary) hypertension Social History Smoking Status: Heavy Smoker (>10/day) Tobacco: How many years used: 56 alcohol intake: former HPI HPI HPI: LITA MEYER, is a 79 M who presents to the office today for evaluation of bilateral carotid disease, severe, asymptomatic. Initially found on duplex that was consistent with >70% stenosis bilateral and further evaluated at [facility] vascular surgery with a CTA. This confirm right 80% stenosis, left 90% stenosis. He had discussed surgery with them but to be performed at [facility]. He would prefer to stay closer to home so he is trasnferring care to [place]. No prior neck surgery/XRT, no limitation to ROM. No prior known coronary artery disease, no CP or SOB though minimal strenuous activity. ROS General General: No weight change, appetite, fatigue, colon cancer, breast cancer or weakness HEENT HEENT: No difficulty swallowing, eye injury, eye surgery, swollen glands or hoarseness Endo Endocrine: No thyroid disease, diabetes mellitus, thyroid cancer, Hair loss, heat intolerance or cold intolerance Skin Skin: No rash or changing moles Musc Musculoskeletal: No back problems, arthritis, rheumatoid arthritis, gout or joint pain Cardio Cardiovascular: Yes high blood pressure and shortness of breath with exertion; No murmur, pacemaker, heart disease, atrial fibrillation, heart attack, heart stent, palpitations or chest pain Psych Psychiatric: No depression, anxiety or hearing voices Resp Respiratory: No shortness of breath, No sleep apnea, No cough, No COPD, No asthma, No emphysema and No wheezing Gastro Gastrointestinal: No abdominal pain, No nausea or vomiting, No diarrhea, No constipation, No blood in stool, No acid reflux, No hemorrhoids, No ulcers, No gallbladder problem and No black,tarry stools Wally Hematologic: No blood thinners, No blood disorders, No bleeding, No anemia and No blood clots Neuro Neurologic: No system reviewed and no additional complaints, except as documented, No as per HPI, No abnormal gait, No abnormal hearing, No abnormal movements, No abnormal speech, No behavioral changes, No burning sensations, No confusion, No convulsions, Yes disequilibrium, No dizziness, No localized weakness, No frequent falls, No headache(s), No lack of coordination, No loss of vision, No memory loss, No numbness, No other visual disturbances, No radicular pain, No restless legs, No sensory deficit, No syncope, No tingling, Yes tremor(s), No weakness and No other Exam Const General: cooperative, healthy appearing, comfortable, no acute distress and well developed Nutritional Appearance: well nourished Orientation: alert, awake and oriented x3 HENMT Head: normocephalic and atraumatic Ears: hearing grossly normal bilaterally Nose: external nose normal Eyes General: appearance normal, both eyes and all related structures EOM: EOM intact bilaterally Neck Neck: normal visual inspection, full ROM, no lymphadenopathy and trachea midline Thyroid: thyroid normal Lymphatic: no lymphadenopathy noted Resp Effort Inspection: normal respiratory effort, able to speak in complete sentences, symmetric chest movement, no audible (more content not included)... Normal [facility] 02-14-2025 CNP[facility] Telephone (DIONYSMD) LITA MEYER ([id number]) 1945 M Date Time Provider Department 02/14/25 ANTHONY EGAN During your visit today, we recorded the following information about you: Sandi Soto 02/14/2025 10:43 AM Signed Mikala from [facility] received a referral for this patient to be seen in their offices. Mikala requesting recent testing reports to be faxed to the office at [phone]. Reports faxed via [employer]. Allergies As of Date: 02/14/2025 (No Known Allergies) Date Reviewed: 02/07/2025 Reviewed by: Angelina Rojo OCCA - Fully Assessed Prescriptions as of 02/14/2025 - metoprolol succinate ER (TOPROL XL) 25 mg 24 hr tablet Take 1 tablet by mouth two times a day. - cilostazol (PLETAL) 100 mg tablet Take 1 tablet by mouth two times a day. - atorvastatin (LIPITOR) 40 mg tablet Take 1 tablet by mouth once daily. - lisinopril-hydroCHLOR Othiazide (ZESTORETIC) 20-12.5 mg per tablet TAKE 2 TABLETS BY MOUTH ONCE DAILY. - aspirin, enteric coated (ADULT LOW DOSE ASPIRIN) 81 mg EC tablet Take 1 tablet by mouth once daily. Problem List As Of Date 02/14/2025 Noted Resolved Closed nondisplaced fracture of body of right c*03/09/2015 Obesity, Class I, BMI 30-34.9 [E66.811] 10/31/2017 Chronic ulcer of left foot (HCC) [L97.529] 12/27/2017 08/14/2018 Essential hypertension [I10] 12/27/2017 Mixed hyperlipidemia [E78.2] 12/27/2017 Encounter for screening colonoscopy [Z12.11] 01/19/2018 Heme positive stool [R19.5] 01/19/2018 LVH (left ventricular hypertrophy) [I51.7] 11/26/2020 BMI 31.0-31.9,adult [Z68.31] 10/01/2021 Peripheral artery disease (HCC) [I73.9] 10/15/2021 Sinus tachycardia [R00.0] 10/15/2021 Smoker [F17.200] 04/01/2022 Amyloidosis, 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] 10/04/2022 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] 10/04/2022 Thrombocytosis [D75.839] 03/28/2023 Alcohol dependence, daily use (HCC) [F10.20] 03/28/2023 History of elevated prostate specific antigen (*03/28/2023 Stenosis of left subclavian artery [I77.1] 11/17/2024 Right carotid bruit [R09.89] 11/17/2024 Carotid stenosis, asymptomatic, bilateral [I65.*12/19/2024 Encounter for screening for cardiovascular diso*01/28/2025 Dyspnea on exertion [R06.09] 01/28/2025 Silent myocardial ischemia [I25.6] 01/28/2025 Encounter Status:Closed by SANDI SOTO on 02/14/25 [facility] CNOVon 02-07-2025 CNOV Office Visit (VASRENETTAD ) LITA MEYER ([id number]) 1945 M Date Time Provider Department 02/07/25 1:00 PM ANTHONY EGAN During your visit today, we recorded the following information about you: Pulse Blood pressure 116/minute 137/83 Anthony Egan MD 02/07/2025 1:42 PM Signed [facility] ESTABLISHED CLINIC VISIT Lita Meyer [id number] HISTORY OF PRESENT ILLNESS: Mr. Meyer is a 79 year old male seen in clinic today for follow up for bilateral ICA stenosis. CT imaging showing 80% right ICA stenosis with distal decrease in caliber on the right as well as greater than 90% left ICA stenosis. Moderate stenosis of the origin of the left subclavian, right vertebral V3 V4 occlusion, narrowing of the left M2 branch, and occlusion of the intracranial right vertebral artery. He remains asymptomatic. He denies any chest pain or tightness, pressure or palpitations. No lightheadedness or dizziness with activity. He was seen by Dr. Rodriguez with cardiology and underwent a stress test which he reviewed and determined there was no significant ischemia of the LAD or left circumflex. He also evaluated the patient's dyspnea on exertion finding it related to his COPD and smoking. BP taken in both arms in office - L 137/87 R 208/93 Vascular health status: Antiplatelet / Anticoagulation: ASA 81 mg, pletal 100 mg Statin or PCSK9i: atorvastatin Vascular screening and surveillance: AAA - None 2018 CT abd/pel PAD - Following Carotid stenosis - Carotid duplex > 70% stenosis bilaterally MEDICATIONS: metoprolol succinate ER (TOPROL XL) 25 mg 24 hr tablet Take 1 tablet by mouth two times a day. cilostazol (PLETAL) 100 mg tablet Take 1 tablet by mouth two times a day. atorvastatin (LIPITOR) 40 mg tablet Take 1 tablet by mouth once daily. lisinopril-hydroCHLOR Othiazide (ZESTORETIC) 20-12.5 mg per tablet TAKE 2 TABLETS BY MOUTH ONCE DAILY. aspirin, enteric coated (ADULT LOW DOSE ASPIRIN) 81 mg EC tablet Take 1 tablet by mouth once daily. SOCIAL HISTORY: SOCIAL HISTORY[1] PAST MEDICAL HISTORY: PAST MEDICAL HISTORY Diagnosis Date Essential hypertension LVH (left ventricular hypertrophy) Mixed hyperlipidemia Peripheral arterial disease Sinus tachycardia Smoker PAST SURGICAL HISTORY: PAST SURGICAL HISTORY Procedure Laterality Date NONE ALLERGIES: ALLERGIES No Known Allergies Targeted ROS Comprehensive system review of systems did not reveal any pertinent positives or negatives except per HPI PHYSICAL EXAM: Focused Physical Exam: BP 137/83 Pulse 116 SpO2 95% General: WDWN in NAD Pulmonary: Non-labored on RA Coronary: Regular rate, no AMANDA or JVD, R carotid bruit Extremities: Normal range of motion DIAGNOSTIC TESTS REVIEWED FOR TODAY'S VISIT: Most recent labs and imaging results IMAGING RESULTS: 12/24/2024 CTA neck 1. 80% right internal carotid artery stenosis and 90% left internal carotid artery stenosis with some distal decreasing caliber of the left internal carotid artery noted 2. Moderate narrowing of the common carotid artery bilaterally 3. 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 Irregular high-grade stenosis of the cervical portion of the right vertebral artery in the V1 segment with irregular narrowing throughout and with occlusion of the vessel at the V3/V4 junction 5. Moderate narrowing of left M2 branch 6. Occluded intracranial right vertebral artery 01/30/2025 nuclear medicine cardiac stress test CONCLUSIONS: 1. SPECT Perfusion Study: Abnormal. 2. No evidence of scarred myocardium. 3. There is mild (<10%) ischemia in the territory of the LCX. 4. Left ventricle is normal in size. The left ventricle systolic function is normal. 5. Right ventricle is normal in size. The right ventricle systolic function is normal. 6. This is an intermediate risk scan. Probable LAD and Lcx ischemia in test limited significantly by arm and soft tissue attenuation. 7. There is mild (<10%) ischemia in the territory of the LAD. Gated Stress IR:3D LVEF % 65 12/10/2024 PVR leg bilateral RIGHT SIDE Resting right ankle brachial index: 0.66 Abnormal ankle brachial index at rest diagnostic of peripheral artery disease. Right ankle: Moderate disease at rest. LEFT SIDE Resting left ankle brachial index: 0.55 Abnormal ankle brachial index at rest diagnostic of peripheral artery disease. Left ankle: Moderate disease at rest. ASSESSMENT AND PLAN: Lita Meyer is a 79 year old male seen in follow up for severe asymptomatic bilateral carotid stenosis as well as asymptomatic L SCA stenosis. I reviewed the options for carotid revascularization with Mr. Meyer and in a shared decision-making process, he has elected to proceed with a left CEA. The technical aspects of CEA as well as the benefits (long-ter (more content not included)... Normal [facility] ECHOon 01-31-2025 CONCLUSIONS: - Exam indication: Hypertension - The left ventricle is small. There is mild left ventricular hypertrophy. Left ventricular systolic function is normal. EF = 65 5% (2D biplane). Grade I left ventricular diastolic dysfunction. - The right ventricle is normal in size. Right ventricular systolic function is normal. - There is TYRONE with an LVOT gradient of 37 mmHg at rest that increases to 71 mmHg with valsalva. - No significant valvular abnormalities. - Exam was compared with the prior echocardiographic exam performed on 10/01/20. The LVOT gradients have increased. * * * Final * * * [facility] Echocardiography Report: Transthoracic Echo [facility] Date of service: 01/31/2025 12:03:34 PM Ordering physician: ANTHONY EGAN Exam indication: Hypertension Technologist: Liliana Hensley [facility] Interpreting physician: Hank Love MD PATIENT: Name: MR. LITA MEYER : 1945 Age: 79 years Gender: M History of hypertension, dyslipidemia and cardiomyopathy. Primary rhythm: sinus. Height: 172.72 cm BSA: 2.14 m Weight: 95.71 kg BMI: 32.1 kg/m Heart rate 85 bpm Blood pressure 145/79 mmHg Color Doppler was utilized to interrogate the cardiac valves assessed and spectral Doppler was utilized to determine the flow velocities and pressure gradients reported in this exam. MEASUREMENTS: Value Indexed Normal Max aortic dimension 3.2 cm Ao < 3.8 Left atrium diameter 4.0 cm (2D) Left atrial volume 52 ml (Hernandez's) 25 ml/m Jose <= 34 LV ID (diastole) 4.5 cm (2D) 2.10 cm/m LV ID (systole) 2.8 cm (2D) 1.33 cm/m IVS, leaflet tips 1.4 cm (2D) Posterior wall thickness 1.1 cm (2D) Left ventricular mass 211 g (2D) 98 g/m LV stroke volume 60 ml (2D biplane) LV end diastolic volume 92 ml (2D biplane) 42.8 ml/m 34<=EDVi<75 LV end systolic volume 32 ml (2D biplane) 14.9 ml/m Ejection Fraction 65 % (2D biplane) EF > 52 FINDINGS: LEFT VENTRICLE The left ventricle is small. There is mild left ventricular hypertrophy. Left ventricular systolic function is normal. Grade I left ventricular diastolic dysfunction. Mitral annular lateral E/e': 10.5. Mitral annular septal E/e': 15.9. Wall Motion: All scored segments are normal. RIGHT VENTRICLE The right ventricle is normal in size. Right ventricular systolic function is normal. RV systolic tissue Doppler velocity is 21.8 cm/s. Tricuspid annular displacement is 2.4 cm. Estimated right ventricular systolic pressure is likely underestimated due to a weak or incomplete tricuspid regurgitation signal and is, at least, 26 mmHg consistent with normal pulmonary artery pressures. Estimated right atrial pressure is 3 mmHg based on IVC assessment. LEFT ATRIUM The left atrial cavity is normal in size. RIGHT ATRIUM The right atrial cavity is normal in size. Inferior Vena Cava: The inferior vena cava appears normal measuring 1.5 cm. The vessel decreases greater than 50 percent with inspiration. MITRAL VALVE There is moderate mitral annular calcification observed posterior. There is trace mitral valve regurgitation. The pressure half time is 77 msec. The peak mitral E/A ratio is 0.47. The average mitral E/e' ratio is 13.2. The mitral flow deceleration time is 266 msec. TRICUSPID VALVE The tricuspid valve leaflets are structurally normal. There is trace tricuspid valve regurgitation. AORTIC VALVE The aortic valve cusps are structurally normal. There is no aortic valve regurgitation. Tricuspid aortic valve. The peak gradient is 14 mmHg (peak velocity = 190.0 cm/s). PULMONIC VALVE The pulmonic valve was not seen or not interrogated. There is no pulmonic valve stenosis. The peak gradient is 7 mmHg. AORTA The visualized aorta is normal in size. Measurements - Sinus: 3.2 cm. INTERATRIAL SEPTUM There is no evidence of intracardiac shunting as detected by Doppler. INTERVENTRICULAR SEPTUM There is no flow through the interventricular septum as detected by Doppler. PERICARDIUM There is no pericardial effusion. There is an epicardial fat pad. [facility] Echocardiography Echocardiography Report: Transthoracic Echo [facility] Date of service: 01/31/2025 12:03:34 PM Ordering physician: ANTHONY EGAN Exam indication: Hypertension Technologist: Liliana Hensley [facility] Interpreting physician: Hank Love MD PATIENT: Name: MR. LITA MEYER : 1945 Age: 79 years Gender: M History of hypertension, dyslipidemia and cardiomyopathy. Primary rhythm: sinus. Height: 172.72 cm BSA: 2.14 m Weight: 95.71 kg BMI: 32.1 kg/m Heart rate 85 bpm Blood pressure 145/79 mmHg Color Doppler was utilized to interrogate the cardiac valves assessed and spectral Doppler was utilized to determine the flow velocities and pressure gradients reported in this exam. MEASUREMENTS: Value Indexed Normal Max aortic dimension 3.2 cm Ao < 3.8 Left atrium diameter 4.0 cm (2D) Left atrial volume 52 ml (Hernandez's) 25 ml/m Jose <= 34 LV ID (diastole) 4.5 cm (2D) 2.10 cm/m LV ID (systole) 2.8 cm (2D) 1.33 cm/m IVS, leaflet tips 1.4 cm (2D) Posterior wall thickness 1.1 cm (2D) Left ventricular mass 211 g (2D) 98 g/m LV stroke volume 60 ml (2D biplane) LV end diastolic volume 92 ml (2D biplane) 42.8 ml/m 34<=EDVi<75 LV end systolic volume 32 ml (2D biplane) 14.9 ml/m Ejection Fraction 65 % (2D biplane) EF > 52 FINDINGS: LEFT VENTRICLE The left ventricle is small. There is mild left ventricular hypertrophy. Left ventricular systolic function is normal. Grade I left ventricular diastolic dysfunction. Mitral annular lateral E/e': 10.5. Mitral annular septal E/e': 15.9. Wall Motion: All scored segments are normal. RIGHT VENTRICLE The right ventricle is normal in size. Right ventricular systolic function is normal. RV systolic tissue Doppler velocity is 21.8 cm/s. Tricuspid annular displacement is 2.4 cm. Estimated right ventricular systolic pressure is likely underestimated due to a weak or incomplete tricuspid regurgitation signal and is, at least, 26 mmHg consistent with normal pulmonary artery pressures. Estimated right atrial pressure is 3 mmHg based on IVC assessment. LEFT ATRIUM The left atrial cavity is normal in size. RIGHT ATRIUM The right atrial cavity is normal in size. Inferior Vena Cava: The inferior vena cava appears normal measuring 1.5 cm. The vessel decreases greater than 50 percent with inspiration. MITRAL VALVE There is moderate mitral annular calcification observed posterior. There is trace mitral valve regurgitation. The pressure half time is 77 msec. The peak mitral E/A ratio is 0.47. The average mitral E/e' ratio is 13.2. The mitral flow deceleration time is 266 msec. TRICUSPID VALVE The tricuspid valve leaflets are structurally normal. There is trace tricuspid valve regurgitation. AORTIC VALVE The aortic valve cusps are structurally normal. There is no aortic valve regurgitation. Tricuspid aortic valve. The peak gradient is 14 mmHg (peak velocity = 190.0 cm/s). PULMONIC VALVE The pulmonic valve was not seen or not interrogated. There is no pulmonic valve stenosis. The peak gradient is 7 mmHg. AORTA The visualized aorta is normal in size. Measurements - Sinus: 3.2 cm. INTERATRIAL SEPTUM There is no evidence of intracardiac shunting as detected by Doppler. INTERVENTRICULAR SEPTUM There is no flow through the interventricular septum as detected by Doppler. PERICARDIUM There is no pericardial effusion. There is an epicardial fat pad. CONCLUSIONS: - Exam indication: Hypertension - The left ventricle is small. There is mild left ventricular hypertrophy. Left ventricular systolic function is normal. EF = 65 5% (2D biplane). Grade I left ventricular diastolic dysfunction. - The right ventricle is normal in size. Right ventricular systolic function is normal. - There is TYRONE with an LVOT gradient of 37 mmHg at rest that increases to 71 mmHg with valsalva. - No significant valvular abnormalities. - Exam was compared with the prior echocardiographic exam performed on 10/01/20. The LVOT gradients have increased. * * * Final * * * [employer] [facility] [employer] : [id number] [id number] Normal [facility] CARDIAC PERF STRESS/PHARM on 01-30-2025 MD CARDIAC PERF STRESS/PHARM * * *Final Report* * * DATE OF EXAM: Jan 30 2025 2:45PM SENG 0006 - NM CARDIAC PERF STRESS/PHARM / PROCEDURE REASON: multiple diagnoses * * * * Physician Interpretation * * * * MD CTAC Report: [facility] Date of service: 01/30/2025 1:00:42 PM CTAC interpreting physician: Hank Love MD PATIENT: Name: MR. LITA MEYER Age: 79 years Gender: M 1. Incidental Findings from limited non-diagnostic CTAC: - Coronary calcifications visualized. - Mitral annulus calcification. * * * Final * * * -------- PATIENT: Name: MR. LITA MEYER Age: 79 years Gender: M CONCLUSIONS: 1. SPECT Perfusion Study: Abnormal. 2. No evidence of scarred myocardium. 3. There is mild (<10%) ischemia in the territory of the LCX. 4. Left ventricle is normal in size. The left ventricle systolic function is normal. 5. Right ventricle is normal in size. The right ventricle systolic function is normal. 6. This is an intermediate risk scan. Probable LAD and Lcx ischemia in test limited significantly by arm and soft tissue attenuation. 7. There is mild (<10%) ischemia in the territory of the LAD. Gated Stress IR:3D LVEF % 65 Prior Study Comparison No prior nuclear cardiology exam available for comparison. Nuclear Med Report:1-Day Gated SPECT Myocardial Perfusion with Regadenoson Stress: Myocardial perfusion imaging was performed at rest 30 minutes following the IV injection of the radiotracer. The patient received 0.4 mg of regadenoson, via rapid IV push, immediately followed by radiotracer IV. Gated post stress tomographic imaging was performed 30 to 60 minutes later. See administered radiotracer and doses below. [facility] Date of service: 01/30/2025 1:00:42 PM Ordering Physician: JUAN MIGUEL RODRIGUEZ. Requesting Physician: Indication: Dyspnea Interpreting physician: Rui Lombardi MD Height: 175.26 cm BSA: 2.15 m? Weight: 95.26 kg BMI: 31.0 kg/m? Imaging Protocol Limitation Reason Arm interference. CT Dose-Length Product(DLP): 39.6 mGy * cm. CT Dose Reduction Employed: Yes. Exam Type: Rest Stress Radiopharm: Tc-99m Tetrofosmin Tc-99m Tetrofosmin Dosage(mCi): 12.7 33.9 Atten Correction: not performed performed Stress Agent: Regadenoson 0.4mg Supply provided from [facility] Resting Blood Press: 176/98 mmHg Image Quality The overall study imaging quality was deemed to be fair. The following technical issues were noted: Arm interference. FINDINGS: Stress IR:3D Gated Stress IR:3D LVEF: 65 % ED Volume: 88 ml ES Volume: 31 ml TID: 1.00 Perfusion Findings Stress IR:3D - Summed Score=14 There is a severe perfusion defect in the mid anterolateral segment. There is a moderate perfusion defect in the mid and distal anterior wall and mid and distal lateral wall. There is a mild perfusion defect in the mid anteroseptal segment, basal inferolateral segment, and basal anterolateral segment. All remaining scored segments show normal perfusion. Rest IR:3D - Summed Score=7 There is a moderate perfusion defect in the mid and distal lateral wall and mid anterolateral segment. There is a mild perfusion defect in the apical anterior segment. All remaining scored segments show normal perfusion. Stress IR:3D Rest IR:3D Summed Score=14 Summed Score=7 LEFT VENTRICLE The left ventricle is normal in size. Left ventricular systolic function is normal. Right Ventricle The right ventricle is normal in size. Right ventricle systolic function is normal. Stress Test Findings: There is no evidence of scarring. The left ventricular cavity size is unchanged with stress. COMMUNICATION: Communicated with Dr Juan Rodriguez on 01/30/2025 at 4:26:48 PM. * * * Final * * * -------- Stress ECG Report: [facility] Date of service: 01/30/2025 1:00:42 PM Ordering physician: JUAN MIGUEL RODRIGUEZ rehabilitation specialist: Federica Hidalgo Repair Manager: Анна Black Interpreting physician: Terri Kearney MD Patient name: MR. LITA MEYER Age: 79 years Gender: M Height: 175.26 cm BSA: 2.15 m? Weight: 95.26 kg BMI: 31.0 kg/m? Indication: Dyspnea on exertion Stress ECG Conclusion: Conclusion: Normal with exception due to PVCs Stress ECG Summary: The patient's resting heart rate was 86 bpm and blood pressure was 176/98 mmHg. The test was terminated due to end of protocol. Other symptoms during the test included SOB. The maximum heart rate was 100 bpm, which is 70% of the predicted heart rate for age. Peak blood pressure was 135/97 mmHg. The double product achieved was [address]. Medications: (more content not included)... [facility] Office Visit (CARDMM ) LITA MEYER ([id number]) 1945 M Date Time Provider Department 01/28/25 1:30 PM JUAN MIGUEL RODRIGUEZ During your visit today, we recorded the following information about you: Pulse Blood pressure Weight Height 108/minute 138/72 95.4 kg 1.74 m Juan Miguel Rodriguez MD 01/31/2025 4:23 PM Addendum [facility] [place] Avinash Paredes Department of Cardiovascular Medicine SECTION OF REGIONAL CARDIOLOGY January 28, 2025 OUTPATIENT VISIT TYPE Consult Consultation requested by Dr Anthony Egan for an opinion regarding preoperative clearance for carotid disease and CAD, HTN, HLD. A copy of this consultation note will be provided to the requesting physician by way of shared Medical record. HISTORY OF PRESENT ILLNESS: Mr. Meyer is 79-year-old male with a history of hypertension, hypercholesterolemia, and significant carotid artery stenosis, presenting for evaluation prior to scheduled carotid endarterectomy. The patient reports dyspnea on exertion, particularly when attempting to run or walk quickly for a block. He also experiences discomfort in the gluteal region described as a non-severe pain when walking long distances. He denies any chest tightness, heaviness, pressure, palpitations, tachycardia, dizziness, or lightheadedness during these activities. He also denies any issues when ascending stairs. He denies any leg edema. He needs to be scheduled for carotid endarterectomy at [facility] to address bilateral carotid artery stenosis, with 80-90% occlusion. He reports that the procedure will involve direct surgical access to the neck arteries. He has a history of minimal physical activity over the past 4-5 years, though he previously walked 2-3 miles daily. He denies any abdominal pain, sore throat, or back pain. He has an umbilical hernia, which is asymptomatic. He has a 60-year history of smoking 1.5 packs per day and consumes approximately 6 beers daily. He drinks 72 ounces of water daily and reports minimal salt intake. He denies any history of diabetes mellitus. He is currently taking metoprolol, half a tablet by mouth every afternoon. ms of chest pain. Patient has mild exertional shortness of breath. Dizziness - No Palpitations - No Leg swelling - No Fatigue - No Snoring - No Sleep apnea - No Patient drinks one or 2 cups of coffee or caffeine containing beverages per day Patient does not smoke tobacco products. Patient drinks socially / uses small amount of alcohol periodically Patient denies recreational drug use / abuse. SOCIAL HISTORY[1] FAMILY HISTORY Problem Relation Age of Onset Hypertension Mother other (blood clots) Mother Stroke Father PAST MEDICAL HISTORY Diagnosis Date Essential hypertension LVH (left ventricular hypertrophy) Mixed hyperlipidemia Peripheral arterial disease Sinus tachycardia Smoker PAST SURGICAL HISTORY Procedure Laterality Date NONE REVIEW OF SYSTEMS: SYSTEMIC: No fever, chills, or change in weight or appetite HEENT: No recent change in vision or hearing. Respiratory: No hemoptysis, cough. CARDIOVASCULAR: See HPI. GI: No recent nausea, vomiting or diarrhea. : No recent hematuria or dysuria. SKIN: No recent itching or eruption. PSYCH: No recent active anxiety or depression. HEMATOLOGY/ONCOLOGY: No recent diagnosis of bleeding or cancer. ENDOCRINE: No recent polyuria or heat intolerance. NEURO: No recent TIA, stroke or seizures. MSK / RHEUMATOLOGY: No recent active connective tissue disease. Rest of the review of system is unremarkable. ALLERGIES Not on File CURRENT MEDICATIONS: cilostazol (PLETAL) 100 mg tablet Take 1 tablet by mouth two times a day. atorvastatin (LIPITOR) 40 mg tablet Take 1 tablet by mouth once daily. lisinopril-hydroCHLOR Othiazide (ZESTORETIC) 20-12.5 mg per tablet TAKE 2 TABLETS BY MOUTH ONCE DAILY. metoprolol succinate ER (TOPROL XL) 25 mg 24 hr tablet TAKE 1/2 (ONE-HALF) OF A TABLET BY MOUTH every afternoon. aspirin, enteric coated (ADULT LOW DOSE ASPIRIN) 81 mg EC tablet Take 1 tablet by mouth once daily. iv contrast (will be provided with radiology test) CTA Head/Neck W No IV access, insert saline lock prior to the sedation, infusion, injection for imaging exam. Discontinue saline lock post exam. If Pt. has a central line or IVAD, may access for administration according to line specific nursing protocol. Once exam is complete flush line and de-access according to line specific nursing protocol in the CT contrast administration guidelines link. (Patient not taking: Reported on 01/28/2025) PHYSICAL EXAM: BP 138/72 (BP Position: Sitting) Pulse 108 Ht 174 cm (5' 8.5) Wt 95.4 kg (210 lb 5.1 oz) SpO2 95% BMI 31.51 kg/m? Body mass index is 31.51 kg/m?. Blood pressure in the right brachial artery was 165/105 mmHg. La (more content not included)... Normal [facility] [id number] 01-28-2025 ECG01 Ventricular Rate : 108 BPM Atrial Rate : 108 BPM P-R Interval : 196 ms QRS Duration : 94 ms Q-T Interval : 342 ms QTC Calculation(Bazett) : 458 ms Calculated P [place] [place] : 44 degrees Calculated R [place] : -26 degrees Calculated T [place] : 70 degrees SINUS TACHYCARDIA POSSIBLE LEFT ATRIAL ENLARGEMENT ABNORMAL ECG Confirmed by MD RODRIGUEZ QARAB ([id number]), marketing editor AMERICO CANO ([id number]) on 01/29/2025 7:48:24 AM NAME : LITA MEYER PID : [id number] : 1945 Gender : Male Race : ORD : Procedure Date : Jan 28 2025 13:17:18 Edit Date : Jan 29 2025 07:48:27 Diagnosis: SINUS TACHYCARDIA POSSIBLE LEFT ATRIAL ENLARGEMENT ABNORMAL ECG Confirmed by MD RODRIGUEZ QARAB ([id number]), marketing editor AMERICO CANO ([id number]) on 01/29/2025 7:48:24 AM Test Reason : Location : 211 : [facility] Overread By : MD RODRIGUEZ QARAB Edited By : AMERICO CANO Referred By : ANTHONY EGAN Acquired by : Lindy LÓPEZ [facility] CT Neck W contrast Brennan - * * *Final Report* * * DATE OF EXAM: Dec 24 2024 2:10PM [facility] 0024 - CTA NECK W IVCON / PROCEDURE REASON: Hemispheric carotid artery syndrome * * * * Physician Interpretation * * * * EXAMINATION: CTA NECK W IVCON, CTA HEAD W IVCON HISTORY: Hemispheric carotid artery syndrome TECHNIQUE: Spiral high resolution axial images were obtained through the head, neck and superior mediastinum following bolus administration of intravenous contrast for CT angiography. 3D maximum intensity projection images were created, reviewed and archived . MQ: CTAHN_4 Contrast: 100 mL Omnipaque [address] Radiation dose: Integrated Dose-Length Product (DLP) for this visit = 1696.50 mGy*cm. CT Dose Reduction Employed: Automated exposure control(AEC) and iterative recon COMPARISON: None. RESULT: BRAIN: Evaluation of the individual slices of the CTA demonstrates no evidence of an acute stroke. ASPECT Score = 10 Hemorrhage: No clear evidence of acute intracranial hemorrhage within the constraints of this contrast enhanced acquisition. ECASS hemorrhagic transformation score: Not Applicable NECK: Soft tissues: There are multiple calcified and noncalcified nodules in both lobes of the thyroid, more on the right than the left measuring up to 1.6 cm in greatest dimension. These could be further evaluated with ultrasound. Spine: Slight anterolisthesis of C3 on C4 with degenerative disc changes. Mild to moderate degenerative changes are present. Lung apices: The visualized lung apices are clear. CT ARTERIOGRAM: Extracranial Circulation: Aortic Arch: There is a normal branching pattern from the aortic arch. There is streak artifact from venous contrast that slightly limits evaluation of the origin of the vessels. There is at least moderate narrowing of the proximal left subclavian artery due to calcified plaque in mild to moderate narrowing of the proximal left common carotid artery. Carotid Stenosis: Right Common: There is calcified and noncalcified plaque in the mid and distal common carotid artery with up to 50% narrowing. Right Internal Carotid Plaque: There is calcified plaque in the carotid bifurcation with 50-60% narrowing. There is an additional focal area of stenosis in the mid internal carotid artery with 80% narrowing, fairly focal. Right Internal Carotid Stenosis (% by NASCET Criteria): 80% Left Common: There is streak artifact at the origin of the left common carotid artery, slightly limiting evaluation with at least mild to moderate narrowing. There is noncalcified and calcified plaque in the mid common carotid artery with approximately 50% narrowing Left Internal Carotid Plaque: There is calcified and noncalcified plaque in the carotid bifurcation which results in a fairly long segment stenosis that approaches 90%. The distal carotid is smaller than the right side which may indicate 90% or greater narrowing. Left Internal Carotid Stenosis (% by NASCET Criteria): 90% Cervical Vertebral Arteries: Patency: The left vertebral artery is patent, with no significant stenosis. There is high-grade irregular stenosis of the proximal right vertebral artery with irregular narrowing of the distal V1 and V2 segments. There is occlusion of the V3/V4 junction. Dominance: Left Intracranial Circulation: Anterior Circulation: Both internal carotid arteries are patent with calcified plaque in the cavernous and supraclinoid ICA with mild narrowing on the left and [id number] on the right. The anterior and middle cerebral arteries are patent, with no evidence of acute vessel occlusion. There is some moderate narrowing of the distal left M2 branch noted. There is a small right-sided posterior communicating artery. 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 The left vertebral artery is dominant and patent, with mild calcified plaque. The basilar artery appears widely patent. Both posterior cerebral arteries are patent. System Operator (topogram) images: No additional findings. [employer] [facility] Provider, [facility] - 12/26/2024 * * *Final Report* * * DATE OF EXAM: Dec 24 2024 2:10PM [facility] 0024 - CTA NECK W IVCON / PROCEDURE REASON: Hemispheric carotid artery syndrome * * * * Physician Interpretation * * * * EXAMINATION: CTA NECK W IVCON, CTA HEAD W IVCON HISTORY: Hemispheric carotid artery syndrome TECHNIQUE: Spiral high resolution axial images were obtained through the head, neck and superior mediastinum following bolus administration of intravenous contrast for CT angiography. 3D maximum intensity projection images were created, reviewed and archived . MQ: CTAHN_4 Contrast: 100 mL Omnipaque [address] Radiation dose: Integrated Dose-Length Product (DLP) for this visit = 1696.50 mGy*cm. CT Dose Reduction Employed: Automated exposure control(AEC) and iterative recon COMPARISON: None. RESULT: BRAIN: Evaluation of the individual slices of the CTA demonstrates no evidence of an acute stroke. ASPECT Score = 10 Hemorrhage: No clear evidence of acute intracranial hemorrhage within the constraints of this contrast enhanced acquisition. ECASS hemorrhagic transformation score: Not Applicable NECK: Soft tissues: There are multiple calcified and noncalcified nodules in both lobes of the thyroid, more on the right than the left measuring up to 1.6 cm in greatest dimension. These could be further evaluated with ultrasound. Spine: Slight anterolisthesis of C3 on C4 with degenerative disc changes. Mild to moderate degenerative changes are present. Lung apices: The visualized lung apices are clear. CT ARTERIOGRAM: Extracranial Circulation: Aortic Arch: There is a normal branching pattern from the aortic arch. There is streak artifact from venous contrast that slightly limits evaluation of the origin of the vessels. There is at least moderate narrowing of the proximal left subclavian artery due to calcified plaque in mild to moderate narrowing of the proximal left common carotid artery. Carotid Stenosis: Right Common: There is calcified and noncalcified plaque in the mid and distal common carotid artery with up to 50% narrowing. Right Internal Carotid Plaque: There is calcified plaque in the carotid bifurcation with 50-60% narrowing. There is an additional focal area of stenosis in the mid internal carotid artery with 80% narrowing, fairly focal. Right Internal Carotid Stenosis (% by NASCET Criteria): 80% Left Common: There is streak artifact at the origin of the left common carotid artery, slightly limiting evaluation with at least mild to moderate narrowing. There is noncalcified and calcified plaque in the mid common carotid artery with approximately 50% narrowing Left Internal Carotid Plaque: There is calcified and noncalcified plaque in the carotid bifurcation which results in a fairly long segment stenosis that approaches 90%. The distal carotid is smaller than the right side which may indicate 90% or greater narrowing. Left Internal Carotid Stenosis (% by NASCET Criteria): 90% Cervical Vertebral Arteries: Patency: The left vertebral artery is patent, with no significant stenosis. There is high-grade irregular stenosis of the proximal right vertebral artery with irregular narrowing of the distal V1 and V2 segments. There is occlusion of the V3/V4 junction. Dominance: Left Intracranial Circulation: Anterior Circulation: Both internal carotid arteries are patent with calcified plaque in the cavernous and supraclinoid ICA with mild narrowing on the left and [id number] on the right. The anterior and middle cerebral arteries are patent, with no evidence of acute vessel occlusion. There is some moderate narrowing of the distal left M2 branch noted. There is a small right-sided posterior communicating artery. 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 The left vertebral artery is dominant and patent, with mild calcified plaque. The basilar artery appears widely patent. Both posterior cerebral arteries are patent. System Operator (topogram) images: No additional findings. IMPRESSION IMPRESSION: 1. 80% right internal carotid artery stenosis and 90% left internal carotid artery stenosis with some distal decreasing caliber of the left internal carotid artery noted 2. Moderate narrowing of the common carotid artery bilaterally 3. 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 Irregular high-grade stenosis of the cervical portion of the right vertebral artery in the V1 segment with irregular narrowing throughout and with occlusion of the vessel at the V3/V4 junction 5. Moderate narrowing of left M2 branch 6. Occluded intracranial right vertebral artery 7. Multiple thyroid nodules noted measuring up to 1.6 cm. These could (more content not included)... [facility] CTA Head Arteries W contrast Brennan 12-26-2024 * * *Final Report* * * DATE OF EXAM: Dec 24 2024 2:10PM [facility] 0022 - CTA HEAD W IVCON / PROCEDURE REASON: Hemispheric carotid artery syndrome * * * * Physician Interpretation * * * * EXAMINATION: CTA NECK W IVCON, CTA HEAD W IVCON HISTORY: Hemispheric carotid artery syndrome TECHNIQUE: Spiral high resolution axial images were obtained through the head, neck and superior mediastinum following bolus administration of intravenous contrast for CT angiography. 3D maximum intensity projection images were created, reviewed and archived . MQ: CTAHN_4 Contrast: 100 mL Omnipaque [address] Radiation dose: Integrated Dose-Length Product (DLP) for this visit = 1696.50 mGy*cm. CT Dose Reduction Employed: Automated exposure control(AEC) and iterative recon COMPARISON: None. RESULT: BRAIN: Evaluation of the individual slices of the CTA demonstrates no evidence of an acute stroke. ASPECT Score = 10 Hemorrhage: No clear evidence of acute intracranial hemorrhage within the constraints of this contrast enhanced acquisition. ECASS hemorrhagic transformation score: Not Applicable NECK: Soft tissues: There are multiple calcified and noncalcified nodules in both lobes of the thyroid, more on the right than the left measuring up to 1.6 cm in greatest dimension. These could be further evaluated with ultrasound. Spine: Slight anterolisthesis of C3 on C4 with degenerative disc changes. Mild to moderate degenerative changes are present. Lung apices: The visualized lung apices are clear. CT ARTERIOGRAM: Extracranial Circulation: Aortic Arch: There is a normal branching pattern from the aortic arch. There is streak artifact from venous contrast that slightly limits evaluation of the origin of the vessels. There is at least moderate narrowing of the proximal left subclavian artery due to calcified plaque in mild to moderate narrowing of the proximal left common carotid artery. Carotid Stenosis: Right Common: There is calcified and noncalcified plaque in the mid and distal common carotid artery with up to 50% narrowing. Right Internal Carotid Plaque: There is calcified plaque in the carotid bifurcation with 50-60% narrowing. There is an additional focal area of stenosis in the mid internal carotid artery with 80% narrowing, fairly focal. Right Internal Carotid Stenosis (% by NASCET Criteria): 80% Left Common: There is streak artifact at the origin of the left common carotid artery, slightly limiting evaluation with at least mild to moderate narrowing. There is noncalcified and calcified plaque in the mid common carotid artery with approximately 50% narrowing Left Internal Carotid Plaque: There is calcified and noncalcified plaque in the carotid bifurcation which results in a fairly long segment stenosis that approaches 90%. The distal carotid is smaller than the right side which may indicate 90% or greater narrowing. Left Internal Carotid Stenosis (% by NASCET Criteria): 90% Cervical Vertebral Arteries: Patency: The left vertebral artery is patent, with no significant stenosis. There is high-grade irregular stenosis of the proximal right vertebral artery with irregular narrowing of the distal V1 and V2 segments. There is occlusion of the V3/V4 junction. Dominance: Left Intracranial Circulation: Anterior Circulation: Both internal carotid arteries are patent with calcified plaque in the cavernous and supraclinoid ICA with mild narrowing on the left and [id number] on the right. The anterior and middle cerebral arteries are patent, with no evidence of acute vessel occlusion. There is some moderate narrowing of the distal left M2 branch noted. There is a small right-sided posterior communicating artery. 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 The left vertebral artery is dominant and patent, with mild calcified plaque. The basilar artery appears widely patent. Both posterior cerebral arteries are patent. System Operator (topogram) images: No additional findings. [employer], [facility] * * *Final Report* * * DATE OF EXAM: Dec 24 2024 2:10PM [facility] 0022 - CTA HEAD W IVCON / PROCEDURE REASON: Hemispheric carotid artery syndrome * * * * Physician Interpretation * * * * EXAMINATION: CTA NECK W IVCON, CTA HEAD W IVCON HISTORY: Hemispheric carotid artery syndrome TECHNIQUE: Spiral high resolution axial images were obtained through the head, neck and superior mediastinum following bolus administration of intravenous contrast for CT angiography. 3D maximum intensity projection images were created, reviewed and archived . MQ: CTAHN_4 Contrast: 100 mL Omnipaque [address] Radiation dose: Integrated Dose-Length Product (DLP) for this visit = 1696.50 mGy*cm. CT Dose Reduction Employed: Automated exposure control(AEC) and iterative recon COMPARISON: None. RESULT: BRAIN: Evaluation of the individual slices of the CTA demonstrates no evidence of an acute stroke. ASPECT Score = 10 Hemorrhage: No clear evidence of acute intracranial hemorrhage within the constraints of this contrast enhanced acquisition. ECASS hemorrhagic transformation score: Not Applicable NECK: Soft tissues: There are multiple calcified and noncalcified nodules in both lobes of the thyroid, more on the right than the left measuring up to 1.6 cm in greatest dimension. These could be further evaluated with ultrasound. Spine: Slight anterolisthesis of C3 on C4 with degenerative disc changes. Mild to moderate degenerative changes are present. Lung apices: The visualized lung apices are clear. CT ARTERIOGRAM: Extracranial Circulation: Aortic Arch: There is a normal branching pattern from the aortic arch. There is streak artifact from venous contrast that slightly limits evaluation of the origin of the vessels. There is at least moderate narrowing of the proximal left subclavian artery due to calcified plaque in mild to moderate narrowing of the proximal left common carotid artery. Carotid Stenosis: Right Common: There is calcified and noncalcified plaque in the mid and distal common carotid artery with up to 50% narrowing. Right Internal Carotid Plaque: There is calcified plaque in the carotid bifurcation with 50-60% narrowing. There is an additional focal area of stenosis in the mid internal carotid artery with 80% narrowing, fairly focal. Right Internal Carotid Stenosis (% by NASCET Criteria): 80% Left Common: There is streak artifact at the origin of the left common carotid artery, slightly limiting evaluation with at least mild to moderate narrowing. There is noncalcified and calcified plaque in the mid common carotid artery with approximately 50% narrowing Left Internal Carotid Plaque: There is calcified and noncalcified plaque in the carotid bifurcation which results in a fairly long segment stenosis that approaches 90%. The distal carotid is smaller than the right side which may indicate 90% or greater narrowing. Left Internal Carotid Stenosis (% by NASCET Criteria): 90% Cervical Vertebral Arteries: Patency: The left vertebral artery is patent, with no significant stenosis. There is high-grade irregular stenosis of the proximal right vertebral artery with irregular narrowing of the distal V1 and V2 segments. There is occlusion of the V3/V4 junction. Dominance: Left Intracranial Circulation: Anterior Circulation: Both internal carotid arteries are patent with calcified plaque in the cavernous and supraclinoid ICA with mild narrowing on the left and [id number] on the right. The anterior and middle cerebral arteries are patent, with no evidence of acute vessel occlusion. There is some moderate narrowing of the distal left M2 branch noted. There is a small right-sided posterior communicating artery. 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 The left vertebral artery is dominant and patent, with mild calcified plaque. The basilar artery appears widely patent. Both posterior cerebral arteries are patent. System Operator (topogram) images: No additional findings. IMPRESSION IMPRESSION: 1. 80% right internal carotid artery stenosis and 90% left internal carotid artery stenosis with some distal decreasing caliber of the left internal carotid artery noted 2. Moderate narrowing of the common carotid artery bilaterally 3. 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 Irregular high-grade stenosis of the cervical portion of the right vertebral artery in the V1 segment with irregular narrowing throughout and with occlusion of the vessel at the V3/V4 junction 5. Moderate narrowing of left M2 branch 6. Occluded intracranial right vertebral artery 7. Multiple thyroid nodules noted measuring up to 1.6 cm. These could (more content not included)... [facility] No Panel Informationon 12-26 IMPRESSION: 1. 80% right internal carotid artery stenosis and 90% left internal carotid artery stenosis with some distal decreasing caliber of the left internal carotid artery noted 2. Moderate narrowing of the common carotid artery bilaterally 3. 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 Irregular high-grade stenosis of the cervical portion of the right vertebral artery in the V1 segment with irregular narrowing throughout and with occlusion of the vessel at the V3/V4 junction 5. Moderate narrowing of left M2 branch 6. Occluded intracranial right vertebral artery 7. Multiple thyroid nodules noted measuring up to 1.6 cm. These could be further evaluated with ultrasound. Arterial blood flow was measured to detect acute large vessel occlusion by computer aided detection software: Not Performed. Concordance between software and imaging review: Not Applicable. Tooling Supervisor: BAKARI Transcribe Date/Time: Dec 26 2024 2:25P Dictated by : EDMAR CR MD This examination was interpreted and the report reviewed and electronically signed by: EDMAR CR MD on Dec 26 2024 2:56PM [facility] [employer] [facility] No Panel InformationOrdered By: [facility] Provider on 12-26-2024 [facility] CTA HEAD W IVCONon CTA HEAD W IVCON * * *Final Report* * * DATE OF EXAM: Dec 24 2024 2:10PM [facility] 0022 - CTA HEAD W IVCON / PROCEDURE REASON: Hemispheric carotid artery syndrome * * * * Physician Interpretation * * * * EXAMINATION: CTA NECK W IVCON, CTA HEAD W IVCON HISTORY: Hemispheric carotid artery syndrome TECHNIQUE: Spiral high resolution axial images were obtained through the head, neck and superior mediastinum following bolus administration of intravenous contrast for CT angiography. 3D maximum intensity projection images were created, reviewed and archived . MQ: CTAHN_4 Contrast: 100 mL Omnipaque [address] Radiation dose: Integrated Dose-Length Product (DLP) for this visit = 1696.50 mGy*cm. CT Dose Reduction Employed: Automated exposure control(AEC) and iterative recon COMPARISON: None. RESULT: BRAIN: Evaluation of the individual slices of the CTA demonstrates no evidence of an acute stroke. ASPECT Score = 10 Hemorrhage: No clear evidence of acute intracranial hemorrhage within the constraints of this contrast enhanced acquisition. ECASS hemorrhagic transformation score: Not Applicable NECK: Soft tissues: There are multiple calcified and noncalcified nodules in both lobes of the thyroid, more on the right than the left measuring up to 1.6 cm in greatest dimension. These could be further evaluated with ultrasound. Spine: Slight anterolisthesis of C3 on C4 with degenerative disc changes. Mild to moderate degenerative changes are present. Lung apices: The visualized lung apices are clear. CT ARTERIOGRAM: Extracranial Circulation: Aortic Arch: There is a normal branching pattern from the aortic arch. There is streak artifact from venous contrast that slightly limits evaluation of the origin of the vessels. There is at least moderate narrowing of the proximal left subclavian artery due to calcified plaque in mild to moderate narrowing of the proximal left common carotid artery. Carotid Stenosis: Right Common: There is calcified and noncalcified plaque in the mid and distal common carotid artery with up to 50% narrowing. Right Internal Carotid Plaque: There is calcified plaque in the carotid bifurcation with 50-60% narrowing. There is an additional focal area of stenosis in the mid internal carotid artery with 80% narrowing, fairly focal. Right Internal Carotid Stenosis (% by NASCET Criteria): 80% Left Common: There is streak artifact at the origin of the left common carotid artery, slightly limiting evaluation with at least mild to moderate narrowing. There is noncalcified and calcified plaque in the mid common carotid artery with approximately 50% narrowing Left Internal Carotid Plaque: There is calcified and noncalcified plaque in the carotid bifurcation which results in a fairly long segment stenosis that approaches 90%. The distal carotid is smaller than the right side which may indicate 90% or greater narrowing. Left Internal Carotid Stenosis (% by NASCET Criteria): 90% Cervical Vertebral Arteries: Patency: The left vertebral artery is patent, with no significant stenosis. There is high-grade irregular stenosis of the proximal right vertebral artery with irregular narrowing of the distal V1 and V2 segments. There is occlusion of the V3/V4 junction. Dominance: Left Intracranial Circulation: Anterior Circulation: Both internal carotid arteries are patent with calcified plaque in the cavernous and supraclinoid ICA with mild narrowing on the left and [id number] on the right. The anterior and middle cerebral arteries are patent, with no evidence of acute vessel occlusion. There is some moderate narrowing of the distal left M2 branch noted. There is a small right-sided posterior communicating artery. 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 The left vertebral artery is dominant and patent, with mild calcified plaque. The basilar artery appears widely patent. Both posterior cerebral arteries are patent. System Operator (topogram) images: No additional findings. IMPRESSION: 1. 80% right internal carotid artery stenosis and 90% left internal carotid artery stenosis with some distal decreasing caliber of the left internal carotid artery noted 2. Moderate narrowing of the common carotid artery bilaterally 3. 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 Irregular high-grade stenosis of the cervical portion of the right vertebral artery in the V1 segment with irregular narrowing throughout and with occlusion of the vessel at the V3/V4 junction 5. Moderate narrowing of left M2 branch 6. Occluded intracranial right vertebral artery 7. Multiple thyroid nodules noted measuring up to 1.6 cm. These could be further evaluated with ultrasound. Arterial blood flow was measured to detect acute large vessel occlusion by computer aided detection software: Not (more content not included)... Normal [facility] CTA NECK W IVCONon 5 CTA NECK W IVCON * * *Final Report* * * DATE OF EXAM: Dec 24 2024 2:10PM [facility] 0024 - CTA NECK W IVCON / PROCEDURE REASON: Hemispheric carotid artery syndrome * * * * Physician Interpretation * * * * EXAMINATION: CTA NECK W IVCON, CTA HEAD W IVCON HISTORY: Hemispheric carotid artery syndrome TECHNIQUE: Spiral high resolution axial images were obtained through the head, neck and superior mediastinum following bolus administration of intravenous contrast for CT angiography. 3D maximum intensity projection images were created, reviewed and archived . MQ: CTAHN_4 Contrast: 100 mL Omnipaque [address] Radiation dose: Integrated Dose-Length Product (DLP) for this visit = 1696.50 mGy*cm. CT Dose Reduction Employed: Automated exposure control(AEC) and iterative recon COMPARISON: None. RESULT: BRAIN: Evaluation of the individual slices of the CTA demonstrates no evidence of an acute stroke. ASPECT Score = 10 Hemorrhage: No clear evidence of acute intracranial hemorrhage within the constraints of this contrast enhanced acquisition. ECASS hemorrhagic transformation score: Not Applicable NECK: Soft tissues: There are multiple calcified and noncalcified nodules in both lobes of the thyroid, more on the right than the left measuring up to 1.6 cm in greatest dimension. These could be further evaluated with ultrasound. Spine: Slight anterolisthesis of C3 on C4 with degenerative disc changes. Mild to moderate degenerative changes are present. Lung apices: The visualized lung apices are clear. CT ARTERIOGRAM: Extracranial Circulation: Aortic Arch: There is a normal branching pattern from the aortic arch. There is streak artifact from venous contrast that slightly limits evaluation of the origin of the vessels. There is at least moderate narrowing of the proximal left subclavian artery due to calcified plaque in mild to moderate narrowing of the proximal left common carotid artery. Carotid Stenosis: Right Common: There is calcified and noncalcified plaque in the mid and distal common carotid artery with up to 50% narrowing. Right Internal Carotid Plaque: There is calcified plaque in the carotid bifurcation with 50-60% narrowing. There is an additional focal area of stenosis in the mid internal carotid artery with 80% narrowing, fairly focal. Right Internal Carotid Stenosis (% by NASCET Criteria): 80% Left Common: There is streak artifact at the origin of the left common carotid artery, slightly limiting evaluation with at least mild to moderate narrowing. There is noncalcified and calcified plaque in the mid common carotid artery with approximately 50% narrowing Left Internal Carotid Plaque: There is calcified and noncalcified plaque in the carotid bifurcation which results in a fairly long segment stenosis that approaches 90%. The distal carotid is smaller than the right side which may indicate 90% or greater narrowing. Left Internal Carotid Stenosis (% by NASCET Criteria): 90% Cervical Vertebral Arteries: Patency: The left vertebral artery is patent, with no significant stenosis. There is high-grade irregular stenosis of the proximal right vertebral artery with irregular narrowing of the distal V1 and V2 segments. There is occlusion of the V3/V4 junction. Dominance: Left Intracranial Circulation: Anterior Circulation: Both internal carotid arteries are patent with calcified plaque in the cavernous and supraclinoid ICA with mild narrowing on the left and [id number] on the right. The anterior and middle cerebral arteries are patent, with no evidence of acute vessel occlusion. There is some moderate narrowing of the distal left M2 branch noted. There is a small right-sided posterior communicating artery. 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 The left vertebral artery is dominant and patent, with mild calcified plaque. The basilar artery appears widely patent. Both posterior cerebral arteries are patent. System Operator (topogram) images: No additional findings. IMPRESSION: 1. 80% right internal carotid artery stenosis and 90% left internal carotid artery stenosis with some distal decreasing caliber of the left internal carotid artery noted 2. Moderate narrowing of the common carotid artery bilaterally 3. 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 Irregular high-grade stenosis of the cervical portion of the right vertebral artery in the V1 segment with irregular narrowing throughout and with occlusion of the vessel at the V3/V4 junction 5. Moderate narrowing of left M2 branch 6. Occluded intracranial right vertebral artery 7. Multiple thyroid nodules noted measuring up to 1.6 cm. These could be further evaluated with ultrasound. Arterial blood flow was measured to detect acute large vessel occlusion by computer aided detection software: Not (more content not included)... Normal [facility] Creatinine and Glomerular fi ltration rate.predicted panel (S/P/Bld)on 12-24-2024 Creatinine [Mass/Vol] 0.63 mg/dL Low 0.73 - 1.22 mg/dL [facility] GFR/1.73 sq M.predicted among non-blacks MDRD (S/P/Bld) [Vol rate/Area] 98 mL/min/{1.73_m2} - PINF [facility] Comment on above: Estimated Glomerular Filtration Rate (eGFR) is calculated using the 2020 CKD-EPI creatinine equation. This equation utilizes serum creatinine, sex, and age as parameters. The creatinine assay has traceable calibration to isotope dilution-mass spectrometry. Refer to KDIGO guidelines for clinical interpretation. In patients with unstable renal function, e.g. those with acute kidney injury, the eGFR may not accurately reflect actual GFR. Interpretation and review of laboratory results Abnormal [facility] Creatinine [Mass/Vol] 0.63 mg/dL Low 0.73-1.22 [facility] Comment on above: Order Comment: Brennan seth Type: BLOOD SPECIMEN Ordering Facility: [facility] Address: [address] [id number] Performed By: #### 4 5066-8 #### [facility] CLIA [id number] [address] [place] [address] [place] eGFRcr SerPlBld CKD-EPI 2020 98 mL/min/1.73m??? Normal >=60 [facility] Comment on above: Order Comment: Brennan seth Type: BLOOD SPECIMEN Ordering Facility: [facility] Address: [address] [place] [address] Result Comment: [place] mated Glomerular Filtration Rate (eGFR) is calculated using the 2020 CKD-EPI creatinine equation. This equation utilizes serum creatinine, sex, and age as parameters. The creatinine assay has traceable calibration to isotope dilution-mass spectrometry. Refer to KDIGO guidelines for clinical interpretation. In patients with unstable renal function, e.g. those with acute kidney injury, the eGFR may not accurately reflect actual GFR. Performed By: #### 4 5066-8 #### [facility] CLIA [id number] [address] [place], [place] [id number] [facility] [place] No Panel Informationon 12-24 Radiology Study observation (narrative) [facility] CNOVon 12-19-2024 CNOV Office Visit (VASSMD ) LITA MEYER ([id number]) 1945 M Date Time Provider Department 12/19/24 12:30 PM ANTHONY EGAN During your visit today, we recorded the following information about you: Pulse Blood pressure 102/minute 192/83 Anthony Egan MD 01/09/2025 4:30 PM Signed [facility] ESTABLISHED CLINIC VISIT Lita Meyer [id number] HISTORY OF PRESENT ILLNESS: Lita Meyer is a 79-year-old male, with a history of carotid artery stenosis, presenting for follow-up. Lita reports feeling well overall and denies experiencing any pain while walking. He does report dyspnea on exertion, particularly when walking at a fast pace, but denies any chest pain, palpitations, or dyspnea at rest. He also denies any history of CVA or CO. He denies any leg swelling, he does experience bilateral hip and gluteal weakness when walking long distances necessitating rest. He is currently taking a daily baby aspirin and atorvastatin. He lives alone and is responsible for taking care of his girlfriend, who has difficulty walking and requires assistance with shopping and other activities. Lita has been smoking for 60 years and currently smokes over a pack per day. He is on a daily regimen of aspirin 81 mg, Lipitor 40 mg, and Pletal 100 mg BID. Mr. Meyer denies any TIA/CVA type symptoms and denies any transient FND or episodes of hemiparesis / hemiplegia or amaurosis. Underwent carotid duplex showing R ICA PSV: 445 cm/s. EDV: 116 cm/s L ICA PSV: 374 cm/s. EDV: 51 cm/s with heterogeneous calcified and shadowing plaque throughout bilaterally suggestive of >70% stenosis bilaterally. Vascular health status: Antiplatelet / Anticoagulation: ASA 81 mg, pletal 100 mg Statin or PCSK9i: atorvastatin Vascular screening and surveillance: AAA - None 2018 CT abd/pel PAD - Following Carotid stenosis - carotid duplex > 70% stenosis bilaterally MEDICATIONS: cilostazol (PLETAL) 100 mg tablet Take 1 tablet by mouth two times a day. atorvastatin (LIPITOR) 40 mg tablet Take 1 tablet by mouth once daily. lisinopril-hydroCHLOR Othiazide (ZESTORETIC) 20-12.5 mg per tablet TAKE 2 TABLETS BY MOUTH ONCE DAILY. metoprolol succinate ER (TOPROL XL) 25 mg 24 hr tablet TAKE 1/2 (ONE-HALF) OF A TABLET BY MOUTH every afternoon. aspirin, enteric coated (ADULT LOW DOSE ASPIRIN) 81 mg EC tablet Take 1 tablet by mouth once daily. SOCIAL HISTORY: Social History Tobacco Use Smoking status: Every Day Current packs/day: 1.50 Average packs/day: 1.5 packs/day for 56.0 years (84.0 ttl pk-yrs) Types: Cigarettes Smokeless tobacco: Never Tobacco comments: start age: 17 Vaping Use Vaping status: Never Used Substance Use Topics Alcohol use: Yes Alcohol/week: 50.0 standard drinks of alcohol Types: 50 Cans of beer per week Comment: 4 beer/daily Drug use: No PAST MEDICAL HISTORY: PAST MEDICAL HISTORY Diagnosis Date Essential hypertension LVH (left ventricular hypertrophy) Mixed hyperlipidemia Peripheral arterial disease Sinus tachycardia Smoker PAST SURGICAL HISTORY: PAST SURGICAL HISTORY Procedure Laterality Date NONE ALLERGIES: ALLERGIES No Known Allergies Targeted ROS Comprehensive system review of systems did not reveal any pertinent positives or negatives except per HPI PHYSICAL EXAM: Focused Physical Exam: BP 117/79 Pulse 102 SpO2 96% General: WDWN in NAD Pulmonary: Non-labored on RA Coronary: Regular rate, no AMANDA or JVD, R carotid bruit Extremities: Normal range of motion Vascular: non-palpable pedal pulses DIAGNOSTIC TESTS REVIEWED FOR TODAY'S VISIT: Most recent labs and imaging results IMAGING RESULTS: 12/10/2024 PVR leg bilateral RIGHT SIDE Resting right ankle brachial index: 0.66 Abnormal ankle brachial index at rest diagnostic of peripheral artery disease. Right ankle: Moderate disease at rest. LEFT SIDE Resting left ankle brachial index: 0.55 Abnormal ankle brachial index at rest diagnostic of peripheral artery disease. Left ankle: Moderate disease at rest. 12/10/2024 ultrasound carotid arteries bilateral RIGHT SIDE Common carotid artery: Origin: PSV: 121 cm/s. EDV: 0 cm/s. Proximal: PSV: 114 cm/s. EDV: 15 cm/s. Mid: PSV: 165 cm/s. EDV: 20 cm/s. Distal: PSV: 323 cm/s. EDV: 30 cm/s. heterogeneous calcified, shadowing and irregular plaque from mid to distal. Internal carotid artery: Origin: PSV: 246 cm/s. EDV: 23 cm/s. Proximal: PSV: 77 cm/s. EDV: 16 cm/s. Mid: PSV: 445 cm/s. EDV: 116 cm/s. Distal: PSV: 196 cm/s. EDV: 55 cm/s. heterogeneous calcified and shadowing plaque from origin to mid. ICA/CCA Ratio: 0.8 External carotid artery: Proximal: PSV: 185 cm/s. EDV: 17 cm/s. Subclavian artery: Proximal: PSV: 364 cm/s. EDV: 0 cm/s. Mid: PSV: 179 cm/s. EDV: 0 cm/s. heterogeneous calcified plaque at origin. (more content not included)... Normal [facility] LITA MEYER ([id number]) 1945 M Date Time Provider Department 12/10/24 RENETTA CLINE During your visit today, we recorded the following information about you: Mica Willis RN 12/10/2024 2:14 PM Signed Patient came for vascular imaging today and tech noted that BP and HR were elevated. Patient assessed and noted to have HR ranging 100-114. Initially BP Right arm 186/62. Asymptomatic otherwise. Patient reports he took his BP medication at 1130 prior to coming to appt. Testing started at 1230 He denies CP, Shortness of Breath, lightheadedness, AYALA. Recheck BP after resting for testing R 162/68 L 160/82 , HR remained 100-110 Does not monitor BP at home. Educated patient if he become Shortness of Breath, has CP, AYALA, or dizziness to be seen in ER. Allergies As of Date: 12/10/2024 (No Known Allergies) Date Reviewed: 11/01/2024 Reviewed by: Angelina Rojo OCCA - Fully Assessed Reason for Visit: Patient Update [1234] Cmt: Elevated HR and BP Prescriptions as of 12/10/2024 - cilostazol (PLETAL) 100 mg tablet Take 1 tablet by mouth two times a day. - atorvastatin (LIPITOR) 40 mg tablet Take 1 tablet by mouth once daily. - lisinopril-hydroCHLOR Othiazide (ZESTORETIC) 20-12.5 mg per tablet TAKE 2 TABLETS BY MOUTH ONCE DAILY. - metoprolol succinate ER (TOPROL XL) 25 mg 24 hr tablet TAKE 1/2 (ONE-HALF) OF A TABLET BY MOUTH every afternoon. - aspirin, enteric coated (ADULT LOW DOSE ASPIRIN) 81 mg EC tablet Take 1 tablet by mouth once daily. Problem List As Of Date 12/10/2024 Noted Resolved Closed nondisplaced fracture of body of right c*03/09/2015 Obesity, Class I, BMI 30-34.9 [E66.811] 10/31/2017 Chronic ulcer of left foot (HCC) [L97.529] 12/27/2017 08/14/2018 Essential hypertension [I10] 12/27/2017 Mixed hyperlipidemia [E78.2] 12/27/2017 Encounter for screening colonoscopy [Z12.11] 01/19/2018 Heme positive stool [R19.5] 01/19/2018 LVH (left ventricular hypertrophy) [I51.7] 11/26/2020 BMI 31.0-31.9,adult [Z68.31] 10/01/2021 Peripheral artery disease (HCC) [I73.9] 10/15/2021 Sinus tachycardia [R00.0] 10/15/2021 Smoker [F17.200] 04/01/2022 Amyloidosis, 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] 10/04/2022 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 LITA MEYER Date of : 1945 Age: 79 years Gender: M Medical History Tobacco: Current PAD: Yes Hypertension: Yes Clinical Indication Claudication. TECHNIQUE -------- An arterial physiological examination was performed, including measurement of blood pressures using continuous wave Doppler and recording of plethysmographic with or without Doppler waveforms at the below-mentioned limb segments. FINDINGS -------- RIGHT SIDE AT REST Right Doppler Waveforms Dorsalis pedis: Monophasic. Post tibial: Monophasic. Right Pressures Brachial: 189 mmHg Ankle dorsalis pedis: 113 mmHg BRANDO: 0.60 Ankle posterior tibial: 125 mmHg BRANDO: 0.66 Right PVR Waveforms Ankle: Moderately dampened. Transmetatarsal: Moderately dampened. Digit: Moderately dampened. LEFT SIDE AT REST Left Doppler Waveforms Dorsalis pedis: Monophasic. Post tibial: Monophasic. Left Pressures Brachial: 173 mmHg Ankle dorsalis pedis: 96 mmHg BRANDO: 0.51 Ankle posterior tibial: 104 mmHg BRANDO: 0.55 Left PVR Waveforms Ankle: Moderately dampened. Transmetatarsal: Moderately dampened. Digit: Moderately dampened. IMPRESSION Blood pressure was retaken after study and went down to 162/68, in the right arm and left 160/82 in the left arm. Patient took blood-pressure medication at 11:30am. Compared to prior study of 02/04/2021, No change from previous study, in the legs. Unable to show left arm stenosis, on today's exam. Stenosis noted in the right subclavian artery, on today's carotid exam. Bilateral arm pressures may be inaccurate. May wish other form of evaluation. RIGHT SIDE Resting right ankle brachial index: 0.66 Abnormal ankle brachial index at rest diagnostic of peripheral artery disease. Right ankle: Moderate disease at rest. LEFT SIDE Resting left ankle brachial index: 0.55 Abnormal ankle brachial index at rest diagnostic of peripheral artery disease. Left ankle: Moderate disease at rest. Technologist: Christine Urban T Ordering physician: ANTHONY EGAN Interpreting physician: Mulu Ocampo DO Final CC [employer] [facility] Medical Image : [id number] amicsSISUID See Link below for Image Normal [facility] US CAROTID ARTERIES BIANCA VAS LABon 12-10-2024 US CAROTID ARTERIES BIANCA VAS LAB Non-Invasive Vascular Laboratory [facility] Carotid Duplex Bilateral/Complete Date of service/time: 12/10/2024 12:25:17 PM Name: MR. LITA MEYER Date of : 1945 Age: 79 years Gender: M Medical History Tobacco: Current PAD: Yes Hypertension: Yes Clinical Indication Asymptomatic cervical bruit. TECHNIQUE -------- A carotid duplex ultrasound examination was performed, including grayscale imaging and color Doppler and spectral Doppler examination of the below mentioned arteries. FINDINGS -------- RIGHT SIDE Common carotid artery: Origin: PSV: 121 cm/s. EDV: 0 cm/s. Proximal: PSV: 114 cm/s. EDV: 15 cm/s. Mid: PSV: 165 cm/s. EDV: 20 cm/s. Distal: PSV: 323 cm/s. EDV: 30 cm/s. heterogeneous calcified, shadowing and irregular plaque from mid to distal. Internal carotid artery: Origin: PSV: 246 cm/s. EDV: 23 cm/s. Proximal: PSV: 77 cm/s. EDV: 16 cm/s. Mid: PSV: 445 cm/s. EDV: 116 cm/s. Distal: PSV: 196 cm/s. EDV: 55 cm/s. heterogeneous calcified and shadowing plaque from origin to mid. ICA/CCA Ratio: 0.8 External carotid artery: Proximal: PSV: 185 cm/s. EDV: 17 cm/s. Subclavian artery: Proximal: PSV: 364 cm/s. EDV: 0 cm/s. Mid: PSV: 179 cm/s. EDV: 0 cm/s. heterogeneous calcified plaque at origin. Innominate artery: PSV: 51 cm/s. EDV: 0 cm/s. LEFT SIDE Common carotid artery: Proximal: PSV: 128 cm/s. EDV: 23 cm/s. Mid: PSV: 226 cm/s. EDV: 32 cm/s. Distal: PSV: 235 cm/s. EDV: 36 cm/s. heterogeneous calcified and shadowing plaque from mid to distal. Internal carotid artery: Origin: PSV: 374 cm/s. EDV: 51 cm/s. Proximal: PSV: 373 cm/s. EDV: 47 cm/s. Mid: PSV: 168 cm/s. EDV: 45 cm/s. Distal: PSV: 85 cm/s. EDV: 21 cm/s. heterogeneous calcified and shadowing plaque from origin to mid. ICA/CCA Ratio: 1.6 External carotid artery: Proximal: PSV: 187 cm/s. EDV: 0 cm/s. heterogeneous calcified and shadowing plaque at origin. Subclavian artery: Proximal: PSV: 174 cm/s. EDV: 0 cm/s. Vertebral artery: PSV: 74 cm/s. EDV: 15 cm/s. IMPRESSION Please note: the new carotid interpretation criteria are used as recommended by [employer]. Moris was notified with results at 4:15pm. RIGHT SIDE Common carotid artery: 50-99% stenosis. Internal carotid artery: >70% stenosis consistent with severe carotid artery disease. ICA/CCA ratio is inaccurate due to distal common carotid stenosis . Stenosis noted through mid vessel. Unable to rule out FMD. May wish other form of evaluation. External carotid artery: Patent. Vertebral artery: Patent and antegrade flow noted. High resistive signal suggests non-dominant vessel or more distal disease; clinical correlation is suggested. Innominate artery: Patent. Subclavian artery: 50-99% stenosis. LEFT SIDE Common carotid artery: Plaque visualized without evidence of hemodynamically significant stenosis. Internal carotid artery: >70% stenosis consistent with severe carotid artery disease. ICA/CCA ratio is inaccurate due to distal common carotid stenosis . Stenosis noted to mid vessel. Unable to rule out fibromuscular dysplasia. May wish other form of evaluation. External carotid artery: Patent. Vertebral artery: Patent and antegrade flow noted. Subclavian artery: Turbulent flow noted, cannot rule out more proximal subclavian artery stenosis. May wish other means of evaluation. Technologist: Christine Urban T Ordering physician: ANTHONY EGAN Interpreting physician: Ananth Bryant MD, DONNA Final CC [employer] [facility] Medical Image : [id number] amicsSISUID See Link below for Image Normal [facility] CNOVon 11-01-2024 CNOV Office Visit (VASSMD ) LITA MEYER ([id number]) 1945 M Date Time Provider Department 11/01/24 12:30 PM ANTHONY EGAN During your visit today, we recorded the following information about you: Pulse Blood pressure 117/minute 129/81 Anthony Egan MD 11/17/2024 7:23 PM Signed [facility]ASCULAR SURGERY OUTPATIENT VISIT DATE November 01, 2024 OUTPATIENT VISIT TYPE CONSULTATION PRIMARY CARE PHYSICIAN: Renetta Cline DO REFERRING PROVIDER: Renetta Cline [address] [place] [id number] Consult requested for an opinion regarding the evaluation and treatment of the above. My final impression and recommendations will be communicated back to the requesting physician by way of the shared medical record or letter via US mail. CHIEF COMPLAINT: PAD with claudication HISTORY OF PRESENT ILLNESS: Lita is a 79-year-old male, with a history of HTN, HLD, left ventricular hypertrophy, sinus tachycardia presenting for evaluation of PAD. Lita was referred by his PCP, Dr. Renetta Cline, in September. He reports experiencing bilateral hip and gluteal weakness when walking long distances, necessitating rest. Prolonged ambulation leads to leg aching and occasional cramping, with no significant difference between the left and right sides. He can perform regular shopping without issues but is unable to mow his yard using a walk-behind mower due to these symptoms. He denies foot pain, chest pain, or palpitations, but notes mild dyspnea with rapid walking. He denies any history of CO, CVA, TIA, or surgeries, except for a heel fracture from a ladder fall, which was managed with a walker boot. He also reports a hernia that is asymptomatic. He denies any family history of aneurysms. Lita has been smoking for 60 years and currently smokes over a pack per day. He is on a daily regimen of aspirin 81 mg, Lipitor 40 mg, and Pletal 100 mg BID, with no reported issues. Vascular health status: Antiplatelet / Anticoagulation: ASA 81 mg Statin or PCSK9i: atorvastatin Vascular screening and surveillance: AAA - None 2018 CT abd/pel PAD - Following Carotid stenosis - Imaging ordered MEDICATIONS: metoprolol succinate ER (TOPROL XL) 25 mg 24 hr tablet TAKE 1/2 (ONE-HALF) OF A TABLET BY MOUTH every afternoon. lisinopril-hydroCHLOR Othiazide (ZESTORETIC) 20-12.5 mg per tablet TAKE 2 TABLETS BY MOUTH ONCE DAILY. aspirin, enteric coated (ADULT LOW DOSE ASPIRIN) 81 mg EC tablet Take 1 tablet by mouth once daily. cilostazol (PLETAL) 100 mg tablet Take 1 tablet by mouth two times a day. atorvastatin (LIPITOR) 40 mg tablet Take 1 tablet by mouth once daily. SOCIAL HISTORY: Social History Tobacco Use Smoking status: Every Day Current packs/day: 1.50 Average packs/day: 1.5 packs/day for 56.0 years (84.0 ttl pk-yrs) Types: Cigarettes Smokeless tobacco: Never Tobacco comments: start age: 17 Vaping Use Vaping status: Never Used Substance Use Topics Alcohol use: Yes Alcohol/week: 50.0 standard drinks of alcohol Types: 50 Cans of beer per week Comment: 4 beer/daily Drug use: No PAST MEDICAL HISTORY: PAST MEDICAL HISTORY Diagnosis Date Essential hypertension LVH (left ventricular hypertrophy) Mixed hyperlipidemia Peripheral arterial disease Sinus tachycardia Smoker PAST SURGICAL HISTORY: PAST SURGICAL HISTORY Procedure Laterality Date NONE FAMILY HISTORY FAMILY HISTORY Problem Relation Age of Onset Hypertension Mother other (blood clots) Mother Stroke Father ALLERGIES: ALLERGIES No Known Allergies COMPLETE REVIEW OF SYSTEMS Comprehensive 11 system review of systems did not reveal any pertinent positives or negatives except per HPI PHYSICAL EXAM: VITALS: BP 129/81 Pulse 117 SpO2 96% General: Male, appears well, no acute distress HEENT/PULSES: JVP not visible, carotid bruit present on the right side Chest: normal respiratory effort, no coughing or wheezing Heart: RRR, no heart murmur on auscultation Abdomen: soft, non-tender, hernia present Extremities: no edema, feet warm bilaterally, no wounds Peripheral pulses: palpable femoral pulses bilaterally R > L, non-palp pedal pulses Skin: warm, dry Neurologic: alert, oriented x 3 Psychiatric: normal affect, normal judgment, normal insight. DIAGNOSTIC TESTS REVIEWED FOR TODAY'S VISIT: Most recent labs and imaging results January 2021 - PVR testing: Right BRANDO 0.6, TBI 0.26, moderate disease at rest; Left BRANDO 0.51, TBI 0.28, moderate disease at rest 01/27/2019 CT abdomen pelvis lower extremity IMPRESSION: 1. COMPLETE OCCLUSION OF THE DISTAL AND THE MODERATE STENOSIS OF THE PROXIMAL RIGHT SUPERFICIAL FEMORAL ARTERY. SEVERE STENOSIS OF THE PROXIMAL RIGHT POPLITEAL ARTERIES SUPPLIED VIA COLLATERALS LATERALLY. 2. COMPLETE OCCLUSION OF THE DISTAL LEFT SUPERFICIAL F (more content not included)... Normal [facility] CNOVon 2024 CNOV Office Visit (BARB) MITCHLITA ([id number]) 1945 M Date Time Provider Department 09/17/24 1:00 PM RENETTA CLINE During your visit today, we recorded the following information about you: Temperature Pulse Respiration Blood pressure 98.9 degrees 108/minute 16/minute 122/60 Weight Height 95.7 kg 1.74 m Renetta Cline DO 09/25/2024 8:28 PM Signed Lita Meyer is a 79 year old male here for a Medicare wellness visit. Medicare Health Risk Assessment General Health Good Exercise: Minutes/Day 0 min Exercise: Days/Week 0 min Alcohol: Daily Use 4 or more times a week Alcohol: Drinks/Day 7 to 9 Alcohol: 6 or more drinks Daily or almost daily Feel off balance no Concerns: Teeth/Dentures no Concerns: Sexual function N/a Troubled by feelings no Frequency: Eating healthy diet trying ADLs requiring help no Safety precautions in home/vehicle yes Smoke, vape, chews tobacco Smokes 1 PPD Difficulty hearing no Difficulty seeing Wears glasses Current Providers Specialists: I have reviewed specialist-related care of the patient in the medical record. Medical/Family history review Reviewed and updated problem list, medical/surgical/fami ly/social history, medications, and allergies. Opioid use review Opioid Medications (last 90 days) No data to display Anxiety/Depression screening PHQ-9 Score: 5 (Mild Depression) Recommendation: no further intervention at this time Cognitive screening Mini Cog Score: 4 Cognitive screening reviewed and No further action needed (score 3-5). Functional Observation Was the patient's Timed Up AND Go test unsteady or >= 12 seconds? No Advance Care Planning Surrogate decision maker documented and/or advance directives scanned in chart Measurements BP 120/66 (BP Site: Left Arm, BP Position: Sitting, BP Cuff Size: Regular Adult) Pulse 108 Temp 37.2 ?C (98.9 ?F) Resp 16 Ht 174 cm (5' 8.5) Wt 95.7 kg (211 lb) SpO2 95% BMI 31.62 kg/m? Vision Screening Right eye - Without correction: With correction: 20/40 Left eye - Without correction: With correction: 20/200 Both eyes - Without correction: With correction: 20/40 ASSESSMENT/PLAN: 1. Medicare annual wellness visit, subsequent - ICD9: V70.0, ICD10: Z00.00 (primary diagnosis) - Counseled on healthy diet and regular exercise 2. Peripheral artery disease - ICD9: 443.9, ICD10: I73.9 - CONSULT TO VASCULAR MEDICINE 3. Essential hypertension - ICD9: 401.9, ICD10: I10 - Controlled - Continue current medications - Recommend home blood pressure monitoring, to bring results to next visit - Encouraged sodium restriction, DASH or Mediterranean diet - Recommend regular aerobic exercise 4. Mixed hyperlipidemia - ICD9: 272.2, ICD10: E78.2 - Controlled - Continue current medications - Counseled on healthy diet and regular exercise 5. Smoker - ICD9: 305.1, ICD10: F17.200 - Cessation encouraged. - Physiologic and physical aspects of tobacco addiction as well as strategies for quitting were discussed. - Counseling was given focusing on the harmful effects of this addiction especially given the patient's medical condition(s) which will be worsened because of the chemicals in tobacco. 6. Obesity, Class I, BMI 30-34.9 - ICD9: 278.00, ICD10: E66.811 Lifestyle modification recommended DO Marlyn Vuong Kimberly C, DO 2024 1:26 PM Signed Take a baby aspirin every day Referring Provider: RENETTA CLINE [[id number]] Allergies As of Date: 2024 (No Known Allergies) Date Reviewed: 2024 Reviewed by: Renetta Cline DO - Fully Assessed Reason for Visit: Medicare Wellness Exam [4060] Primary Visit Diagnosis:Medicare annual wellness visit, subsequent [Z00.00] Other Visit Diagnoses:Peripheral artery disease [I73.9] Essential hypertension [I10] Mixed hyperlipidemia [E78.2] Smoker [F17.200] Obesity, Class I, BMI 30-34.9 [E66.811] Order(s):ADVANCE CARE PLAN DISCUSSION [[id number]] Order #: [id number]: 1 aspirin, enteric coated (ADULT LOW DOSE ASPIRIN) 81 mg EC tabletTake 1 tablet by mouth once daily.Disp: Rfl: CONSULT TO VASCULAR MEDICINE [[id number]] Order #: [id number]: 1 FUTURE Prescriptions as of 09/25/2024 - aspirin, enteric coated (ADULT LOW DOSE ASPIRIN) 81 mg EC tablet Take 1 tablet by mouth once daily. - lisinopril-hydroCHLOR Othiazide (ZESTORETIC) 20-12.5 mg per tablet Take 2 tablets by mouth once daily. - metoprolol succinate ER (TOPROL XL) 25 mg 24 hr tablet Take 0.5 tablets by mouth every afternoon. - cilostazol (PLETAL) 100 mg tablet Take 1 tablet by mouth two times a day. - atorvastatin (LIPITOR) 40 mg tablet Take 1 tablet by mouth once daily. 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 Normal [facility] SURGICAL PATHOLOGYOrdered By : William Lai on 10-14-2023 Case Report Surgical Pathology Report Case: [id number] Authorizing Provider: Scotty Mejia MD Collected: 10/11/2023 11:20 AM Ordering Location: Urology Received: 10/12/2023 08:22 AM Pathologist: William Lai MD Specimens: A) - Prostate, Left, Base, Biopsy, 1 B) - Prostate, Left, Mid, Biopsy, 1 C) - Prostate, Left, [place], Biopsy, 1 D) - Prostate, Left, Lateral Base, Biopsy, 1 E) - Prostate, Left, Lateral Mid, Biopsy, 1 F) - Prostate, Left, Lateral [place] , Biopsy, 1 G) - Prostate, Right, Base, Biopsy, 1 H) - Prostate, Right, Mid, Biopsy, 1 I) - Prostate, Right, [place], Biopsy, 1 J) - Prostate, Right, Lateral Base, Biopsy, 1 K) - Prostate, Right, Lateral Mid, Biopsy, 1 L) - Prostate, Right, Lateral [place], Biopsy, 1 [facility] Work Phone: Clinical History d8clzOIsMUElu2cnCXZe b MPpKiIyRpGuYfMcLrn4LC QujoI8Mfs2XEQhJAwkeX5 uOUPoGFbaS2bhoeZkuNAh EWFif7Jrho6wBVUqnFIjl 8P1WOKjTu0pSGHnohHrMf PeRIXjMEDwMSBjsWUwS68 9XHBsYWluXGYwXGZzMjAg EQ8BR9MHQYMWOINLZqLVG h5ZJJAYULTPBG1SH9qhaS FyIH0= [facility] Work Phone: FINAL DIAGNOSIS h5diyGScPKUnhOHrFAYw N ZfyqhMzRXQnwMGeX6Ovyl ouKMkdZS7xGG2srLrlhBG cdSUvVUUsPvMbi7umc588 oKDiv6jvMAFJepbbgDh8d LxhI94ft1H9JfnpI84llA BjGAX0MJPpMQGdvQPgAFN aZNH8BPHcnRFqL9kgUOYd NR7xnjrzAVgnNLwhIUSyq OH4YVCyiKOcL6NsPSQtUP mhCAIdudm7LfOjXe6nbFR yeTcyMFxwYXJkXHBsYWlu DILgSrJyEF2pQRJvd2Paa GUsIGxlZnQgYmFzZSwgY2 4mIJFhbG3ze0z0JLwkiaW yLEQOFX6qA20wwSJfz2Na cLsuIMYhw8V7AD4chUbzM JjiiY0mUMXaONEro4R6HE SzPOSyCXW2SM5yVFacA39 vMRSxzE7sb7v1KQtbnbSo HCMSVL0sG43lrLCgd2Jwy VynQCAwa2M8EL1ygRqoTT ggvN0pNYMxNQPer5D6HGH lOTFtEQC7PKPfOLxoTMHv siFsVoqlvIY2FjoyiE5hG T0iWsHgsBidJVKeh0Y3YC ViYcU9yUEanDYcIOtxilR zqIesJBZJQtHJjp7ciLM6 ZSwgbGVmdCBsYXRlcmFsI KVrf9DqTCEiovIbQqtsgE S7HkfouC4bBX2yQdSxkMl cLGPlg9O7WFFdUxJ7sTHk dWUuXGxpbmVcbGluZSBFL yLKss1ygHZ8DIbzoTCfoP JhPKHjdfGeAG9mTHhdV56 pUCPgdA7pz1p7MTespzBw RYAIGX3bZ01hbEQtz5Fyk OzeKMYup9D7JD4hsHvqXI gfvD6qNFYaLCVpr2S2IIF hNYJfIXZ3HVtsfXVsGLpk JRNrzScfX01tCYUkxD4wu 6s8WFPzyqCaZQVbzsknvh Skzo3uoCZ2dORasGlnc7H lLlxwYXJccGFyIEcuIFBy w4Z7LRUoTOGwjOvqlJSqH URvBKAed0AcVGFxw2UlbH pcbGluZSAtIEJlbmlnbiB fuz0ncLX3jOBboWgay4Zm AodmyI8qXZadilGzQL3bU KSkp6SihEJqRELnH9y5KI 5pLKlnZ02gETKoaD9hn2z 5LRilahIaDNIWPX8rR82y vKGrc4KovCaoPRUpg1Y1K U7kmTtxYQtwtP8jSJuyOA Uho4M9IVZmGXDgvDtfhAR xqOR6SBSlv0YpEQRxi9Mk eTpcbGluZSAtIEJlbmlnb zAmqh5msBJ4iGUkbEgrk9 XvNykowM3lJHpeovTcBn1 aPQOrx9FxxKOkMFIkP5x2 IGxhdGVyYWwgYmFzZSwgY 05rIOWwyT1iz2v7BRmrbj SiIWZWMV1uJ27cxTQjn3B esZaqGBDbq6T5ZN9wpRtt BDcbjJ6pYEsqPGXnp4J6W XRlLCByaWdodCBsYXRlcm XoND9gFHtrK35aQFNwqR2 lv3d3AWkcgkFxXRBPGO2l M18vfHRxg4DktJtqNQUkc 0O2XG8bzFqjJWkpjQ0oCO csDTKcy3H9XBVePDAzrYk odCBsYXRlcmFsIGFwZXgs BLHxbjDrOwxkzON2KltmC DFwQCKYZH0lX59afTLca5 VxuDxjBEIeq6R8XV1uiZW yXHBhclxiICBccGFyXHBh dhUyDgRcRbqZT5PBRXXoO nC7KwJgZrKnBIntAFX6 [facility] Work Phone: Gross Description e1elbJExHZOyrPRMJIW5 M DJcDJ4fsBvwrEf3rFvsXO YgntJ1sUSfUJyzj3wfOLD 4l9kcszUMBhwzKQTuLP9u IAdkCIIeUM8cOjYoNODvQ mYxXHBhcGVydzEyMjQwXH HmoEMiuZQ3WKEoVY7bxnk dWEbnNAuvQZKnbnD2BAIj vHXkP0EvGHOrYE3ofdmuN CT6JDISWwjvDx2rzIFxdO tcZjFcZmNoYXJzZXQwXGZ fa8zqsvOSpvcszCk3fX5M HXQnG0BlMX4Xd1zzHDTvk SKnYDQ7QIfxr0vxRIypCM Y7GLMqBPUqTRZlSI8EXlB bNKBxEzOwRRydBdW1QPa2 LUGWFTJsRCR7MVZ9ZkLmC Mv7GAavOGhxtCCvGVEqPW PaJCMuBIviedT3j2fwPTC rxVZsQUJ9BLptm8aiSSsj TCW0IWWwWnBpLVRvQH0JN hTiHADvXaRkGImoPhK7VO r3XEFLQhNiUlZmUUJ3MDa 3FjUyEMi7ZCq9ZDdLLhLh Uek1LrxjLxXwFZQ5TMC8S SBcXHQgMiBcXHNzIDMgXF rhuELxGO3wbDzoFJKjTM8 QHKGaPOzhFDEwSjOxAL4u NWXzy1IitAIlXRffPkJbG ANtz7JzDVNkx7CkiOkfwY JjaFxwYXIgDQpccGFyZCA NClxwbGFpblxsdHJjaFxm cfZiIUVtyUJAFLE5IE4eS OCQArbcxCGpOCQej0SrZV xlcGljWHNhMzAgDQpcZnM yMCBSZWNlaXZlZCBpbiBm m0AqXFssgiJpmoBoAHRpr 87oEMFwwuFwwbTznJjbR7 Msp1MkB9zhiC7uzifjDYg mjHmtt1UhYM3wRAO5qqfb ZyAxLjQgeCAwLjEgeCAwL dBhN14yABRbwnEmikUtv8 AsHSHqi5E0XTOgXOIcwui jHoivOIGsewImv8CsftY8 DePEk2OyeIr7XWN1Ek1iw ORaNQPrpcDzraYmG6Mkn9 K2nVBnICftHNSsM75rg7I Zv0Ual2ksvJjhf0MtnPUj WA1qlOUrIA4Hg3ghIIVwt BYzAHX1EJrvw7irNUlqUJ Z2HTWvVbLrWJBaVD0JJxD jLYPjSvAcDIstUoU0EIt3 LDGSKeVgYnUcDQJ8IQe4Y wVuORg5QKt6EJgKPrKcWr r0XxpuBwU5HjO8POA0GSF cXHQgMiBcXHNzIDMgXFxm kFWuOH8bfDjeLFDsEVHnC WP6DMLhlJVHt4DsOBEgPW ozIuMiDoDFZkIHbq4zbUC 0ZSwgTGVmdCwgTWlkLCBC xK5bk8dzxDMuSR8VLSHds cDsJEhjnBlilE5abVKkO9 hcZnMyMlxlcGljTmVzdER vYzEgDQpcbHRycGFyXHNi UhXxICOcM5mvAyFaUYWhD qGmAEShV3igCWDgKM8JCS YpTySyMmNoSLf2XRVibF4 vTa4geEOkdD7ae93wNBOq hK9wW5BqlRKcg90nHKOtC CRkOR1eWEA2gDswELTpG0 GjRAPoo4E7CSTcVZRsxGR bhecrCZ83TLkkQK9yVQdx HO8oCKHgXVO8TV6fLI9nN I6dXQZst80vsVEcijZpLy ClLZVjGIYvn02siTY1VX9 ggY5wLW28RWybnEDboUMj pAJ6UFDtqM3gp50eVAMba 5UhjJMyRz3EBOWazYUCRY T5DC9oRXpmYFLbW8QdS0V eqhL2UOUxnjCRMhgvBaru vEbal9PxcDAyEGZzXUdrw WQgNTEwMDIgXFxkYiBPVl CbDaQ0BvTfQcC3FqKmSAz 1SYccU2AMTDUlMAFhINk8 ZfQbSfO5ZDt5MZSJWz7cV WM6IwW0HDo5BWKiEND0Bm wkKAe5VRJhCZshdjEoICn lYomvYZweR86wyCHyYKhj QwAdSIwufUykMJUjUIN3U W8DTSEfYvUzHl9vUPFgs7 RhdGUsIExlZnQsIEFwZXg xMPUzo7BazClqCLYuCQdo cGFyZCANClxwbGFpblxsd HJjaFxmczIyXGVwaWNOZX G2NE1mHPCWAqsmgJHpIIZ an2IiJGvkiGjmLMMdQfUs u9YyTBtbiMtwKZYmBsBqT QpcZnMyMCBSZWNlaXZlZC BfcgLon4SuPNqfvbXcojZ sPXAmp08wHGIlyhMawoQw jSlhD4Nks0UbS0xbrU8ft azrFXdtiMwxv6DgIB2xIX C5jbrlOmEaEbbaxQFcWnE cpTCtWgCtD73lVQQparRz ehXmu9XkWVInc2Z3TYFxJ CBmcmlhYmxlIGNvbnNpc3 GckuA9XyMAw1TfkUy9SYA 9Rg9xnYPaRAEvpfOuxuLh B2Kar4S4kLWnBDtuIXWyA 78uc2YFs9Uqd1wesUdxr3 WlgWVqMI3hbTThPM7Sv4w dYLPopJBrMTY5BLqeh8rw WEfkXCH4QJSuErNmUNKyV G7IYgVvKKDbPjEmAQaaZm W5OZr8OLWORaLoQoOfYKF 1RRo1QqRqOUf0CNy9KWbN AjOqSpw6QaemIyi1ZbZ9B CU3EPHtFZIgDzJkTJJtBA DcGIzmaSPdCO5vsAkrRFR oDGKzDNW2AQBytGAIe4Tl MDUgDQpcZnMyMiBELiBQc f5wqNI8VGlmHXAwmBlrAC G7JOLaqPUQMCQkOIYTiP3 qk9bpdEYpEZ3FRYOtbgMl WYsgzRjjqF8rhVVkJ2ldX nMyMlxlcGljTmVzdERvYz EgDQpcbHRycGFyXHNiMzB yTUBwO0iwNuGwJFOyXwQi NTZcY5nvJVZjEO2QZXVqY zMeLhMlSAo1IORynA6cZk 0cwBKylM1jq45cDHQeiY9 aA7HknMMnq74aXFFfRZMk MZ6oHWP6lLqwRZAtL9PqY NLuy0P8OJFwBWGfwKQeia daSe6cVLvuAK5gQPmuWE9 vLPXxUBF7KA9gWF9lHR0j ZTNan07cdLEoavHgBtPbP ZMuTOKom97jgXW8TA6brT 8qGU23NHipnLQtbMForRS 3VRYnoD4yf11dWKDjh5Co yGWxQg6OWFNmdTIWYQO9V M3xHFhwTWXyK9EyJ7Bkgq Z6NGXdytYNFobsEcsnwYq pv3WzlKKnYVGoFWmbrQTr NTEwMDIgXFxkYiBPVlIgI sE3XtGuNpV4GyXmWAt1JY geZ2OMLPBhTBMcHCk6VeS 5TxR0OZr4HWHRJn0uUJT9 QmM0YQndRFEyBZG4FzecJ Gv9KFIrQXsnkmIuUApbQu njBZooF92apTNgAZtsMdS tKCniiXjgCFNcBEP8UN5R YKAvOxKhKB0bVZFbm9Ekl GUsIExlZnQsIExhdGVyYW bwTSjdFWPYxD8bz5topML gCK0EZGHfdcPpVUpckKvm gN5xiZEwW0whQlQjOpyrj GljTmVzdERvYzEgDQpcbH SuzDVpOLGsNyDsBOZkJ9o kDvBuLGZaBxNrQSNvH6qy CLYyRB6FMTKfWwQcWwGmB Bu9KJBtuS1jQq5djMSoiH 1ji25cQEScqK4hT8OcuMB iq12oRWPrLDWwDX5yQZP9 uTwdSXDhK2WxDTMyh9O3A CYyOSGjuQTmvppiCF4jAA cpOC7lJPojVB0kZTOqNSX 4CQ4mPS5lZB7oWOHyi96a dCBhbmQgZnJpYWJsZSBjb 47lwMS3TY5jfH5bOV67FZ ktiKVqzBJmsNK3TTOdqV3 nc17yBTRrj3PfiMCgQt8D TUIubYOFHIQ9TJ9uJSbiB DPpN5HrN2KpxvQ2CGVtou EADbdvKbkoaKpkl0PzxWI cXHNnIFxcaWQgNTEwMDIg YAzoFlYGVyDvEyH0BwGoW lR6KaVyDSg1GJhbV3PENG CmRFEyJYc4PzS5YaM9AWv 0FSROJt4yEXQ8NtO3BIuc HOJqYQG0BpirKLh2UMNtN FxzcyAzIFxcZmwgXFxuY3 1ccGFyZFxzYjEwNVxlcGl wQQIrXRI1FX2MUPFtAuJg Ve7iOTFvp8WwmEPsJJbjC nQsIExhdGVyYWwgQXBleC NmBMZhw8CveRnvUYOvPLp ccGFyZCANClxwbGFpblxs dHJjaFxmczIyXGVwaWNOZ LM5YR2gLKLEBnnuuNIxUS Qak0CgVEbwzVkcYADyVrJ uy9LmRJmtaVyfNHDnAwZv DQpcZnMyMCBSZWNlaXZlZ OYqwfVwd0AvIHmqmzCbpe TyABPnx64eCPTewfLezzB jwLdzS0Ozk0NkV3jerB7x xfsxKSjgrWkzk9FbCC5lF VZ2loezGwSbVphmqLQfGr PsxSGeXtTyB77nZPTzenD sehOrc5PqFDFrt3F4NKQb ZCBmcmlhYmxlIGNvbnNpc 2UyifI4NvQSf2FkyXz4HU X1Ah1fpXBuBSCkviKatwI wB5Eda2W0uYGvDLztSVIk D43to6HZi5Yhf2cdjEouw 7YhwNDuBJ4zbFRoMN7Ef3 tgLSZwxQAcHLC9WPkth7o dZDjmUNX1LPYcBzUvUOKn UD6MMnNjVORvWjFdEUyuF eL3IDb0TDTZThGmAfIqIC D2XIn1IvxdRAd3UDa1VTm HEdRuMbt0WrrxLBCoZRH1 VSU5UTOeHLOkUpDhJRGpE KEdLSmqiWXpCY3eqCxeIH IdJORtQRP7NIBjvBLYm3H xMDUgDQpcZnMyMiBHLiBQ so4ksXG3RCpqFbkirHTvM CHrj9EiBDMpi8WezFpqKD IgDQpccGFyZCANClxwbGF pblxsdHJjaFxmczIyXGVw fZERJHU8WQ4xVHUQEfjsx ITqDHAaq0KuQOwodBxyHL VgYeRyp7AyUOmqhBnuBFU hMzAgDQpcZnMyMCBSZWNl hNSnNAMexoLrf9KwUMtlt sTcwkJnLIIpy28aLUIoid LntmLqcQqsI9Kdh7YlO2h jlI5bvuzsFPmiyHetv4Yu EI8pBXT9njnvDoKeXkAcv FBpLnKawEAaJuTpD48oLT EvpkGzvpVjv2AcVCTbn9Y 0IGFuZCBmcmlhYmxlIGNv kwUed4ExrtF2NgVCn0Xnw Nd7JGZ6Dq4fnRBqQVArmp FxqqWtM7Zuy9Y7dRSeTDw bCNOsE54cr4UPx2Vra1qv bHdkt5BmeVBgQP9coJReH L9Kd2xxKHFzcRYxXBZ1TK teg9vaDYujQMI0DGMwQxU zTFArWF2KScHgCUJtKqMd XWlkIhE2SEw7XQDJXtDgR bQjTSN5VQe9AkznCHt7SX a4NRbJWjUuFfj1NrynNIF 2GdQ6LQD3XGBlNCBvKtKx BTMhVHXnGMxubHMwYE0lo GgcZSJmLUFoMCL8LXFolW LIs4VsOUDjFYwhXtOvCkH GJnEXyp1ddKD2SAkxVigy dGNaOO0cNMakGqlwmRX2N MDptwNDIqbzQCLqTG4TSD RhRRmwIFq4tcNaYSPeMmC lAXYnC03qn2MGq2YmOY1G UJq5wzPgueekIdQvMKCix HGOx6MaZTcvCEOwWCZqkE ZNs9PeNLUKYbgrjaDgTRO yF1XmzeOdZArcYYTtqp2n gAqjUE0vUJNdz2NwixerV OmmWW5cGLSypIWeGDKvJy FcnTfqibAxhECwlXX2tTK avSRxlOXkd8OlxC0zKCGk KdJ3TSFcBPU7XBEnBTBej SwgdGFuIGFuZCBvZiBhIH RbUoYkXH2eCFQeiIOmvKT dK76or8zilMTbY0ncSPXc qHVedIvud9KvjAq7zKOwV WcjNK8wPLZcLTThUEQ7TF 4NClxlcGljTmVzdERvYzB 0FKOdkKTiGIR2DY0mcBcj DSFbLBp7FSfnYITgM2AyY 3QgXFxzZyBcXGlkIDUxMD KuLSddIEMrC8XNCWEwSpU vOSW5WFVdFKk9SSq9HN2S YbVyZFK0LDH8Xal1JKQeW Gi3QIkgIU1JAFOgUrIzNF V3RWKpOKK9WCK6LAeozPV lZGfqk9XhLrHgQALwODlk rhN7OVRbxjRwy6DsOPMwB BVqV0ixGvVcFGHQCjcxcd LhDQwrBSPko3X2XQLxFWG SaWdodCwgQXBleCwgQmlv cMM8DFCvhzXFZaxoVMIaN K7GUREkFQlnAMh3koOdQD LwJxLsIHAzS09lq2PFk0F qUP2WWPz9suLbcckmHkBn RUMkuHSLf2UrCIcvNLZkP ZSrnQYMk6PmYZVKLlwbex LqCALsO1XphsEuJCvhXKJ bvx2qvZnoOM6vAGYgf3Go twnaVEvtLW3kFAEgaINlY SBvZiBjeWxpbmRyaWNhbC E2oXNwbZLvmMZbs3CdeG2 kXYEhTKZ2LGGiUHR3UHWo MSBjbSwgdGFuIGFuZCBvZ hHvLYCjQoQrNI8kYMBvuE CkxLDdH38eq3uazHMaB7c eLGKvbHQtbKpwv3LkjPs4 wNVzYSrcZZ5pPEPsIBVcS KD2OX2NBkrtpRqyRxYkiV ZkXqJ1SZVtpXYaGHL3SN7 svTlzKIEkBQz4IHjaDRCi G4HxT7KpFZpdRfYuOPgjG YUmDKAnTKlwXJQzS9IDQI IfEgIrPEI7HVGqBDf2ZXb 0XA5VJpZzURG4AGX3Bem6 SGPnRYm1RMtsAT4PYAFqS cEdMTN0GPzxRLG5FES4JG rsgZAxEPixk9QxZuNrXSA uOZuygfG2ESEvbqPaj7Cu IUCtCLUsB4orXhRfUKYAP jwhrzGqIBcyMHIrj3D7FJ CbZVNUuXfikDxzOYW0BBP rgPNESWKsDQCMdA5xy3im oAAbJT8IFGOjedQjSZjyl ErrwJ2wxMYmM8pqAzXeQe xlcGljTmVzdERvYzEgDQp cbHRycGFyXHNiMzBcZXBp I1fjPyWjMCAgTfEuFHVpM 5sfPQDpWU7YZVWzAjGrEc BaFDf3ESXvkX1xAf8ovRD edG3jn49eCZNifI8eQ9Hv oMLgj02xQFBrKUFjAZ7wL RR3yRqdQPWlO8EgMFBpz2 B3NVTkIOUiqIOovcwlJO8 4QMaaND9rYRztDH2mSUBi WYU4AG8sKE3bFB3jCJHev 29mdCBhbmQgZnJpYWJsZS Ljc51aySA0XL2mcQ9lHD0 1ADntlXIspYUgfIK6VSIh lA8hj10zVOBcr8OugMIsP c4KITBnsOPVPUW4HW9xMA lyHTThT2HiG2MgnsE1QTZ trjEJPgvqWbunpGqos6Bc dCBcXHNnIFxcaWQgNTEwM PYuEAtjUvVPJiMtJtD4Fz EyUeX9GmUbPUq6YCvoW6P ETFKePUSiQBp8UiycTnF8 EQs5XMXFCh1kWKT3BdE1E WboTeSuTRB2XjihLEh3GQ IgXFxzcyAzIFxcZmwgXFx vY10ktNBxQDbqXxBiAZik pQcfEEBvFOV2SM9JDTLhO gTvAh1zQMIkp6WnbEImGU MkI8s7EPSLXPRhzdYiJG9 zLJxvGjqpdSM8TEWqjwPO LsyqLWSdKW0EQBIuUWzgE Hq2vqVlDGGxOvLmBHMpK8 8af5OPw9VdMM0SJHt9wlU azzdxLlHbIHFimHDCw6In RIczKHPkYOXsiUWDk8TbP FKCOzdrpzXxVRXlH2Vtij DzVYkjMRUrcq1pvHzeSL4 aOMHmq7VtkfxkPUdvQL5k ZSBwaWVjZSBvZiBjeWxpb jWetQGvjUA6bGTkuTBbtA Zze3NkcF9rPAQzEpR0TWT fSGG3IFQfZGNbtAilnATo IGFuZCBvZiBhIHNvZnQgY O3eOOYwnVBxcRQcY86cr7 mfyPKjG1ypJEGyqQRxqIu qc5FfzPa0gCTiIPmuFK7t CECfABZwTOA9QG5SRagpv RjsOiYvbAWhTkI4ABRcaY WfGBD2WM9yqAwgEZDaWHs 8GVjtIJTlR4HfL3FiYTti ZyBcXGlkIDUxMDAyIFxcZ JKfE6XOGQIqPvLpIWM9RW BvDAb8OXu1VV9EKyQmUVP 1ESX1Bgv0MvTbJTi5OVss GE1OWKNuDpIfDCC1InA1V HL5GPM8BHivdPRqOSsgx9 QsXlZqXTYvDOauquN8KRS tqsTyo6JmMLVaYHUwT2rf YjEwNSANClxmczIyIEwuI AWie2D0WIIvWIUBtQclrR lfAEU2MJQpsESNpND2WVU ItV7kq0ggcWFvNQ0STJDo hfHyDHdhaCklrW4rvQMjV 2hcZnMyMlxlcGljTmVzdE RvYzEgDQpcbHRycGFyXHN xFcFwNSVdA0elAbSjEX5E YPChTtIkKoLtMLt5VJSoi W1jNb5jxMAocY4cj49pFT JqvQ3xJ8OonWSut16jEOQ nLMTkFZ8zXHW2iGycEIJv B6JnHTSnb8A5RKGyUDQgf NEsxphoZG8eMKzzLO8fBC lqDD3gLWTnXLW2AN5tEI6 uHS1iJCSmv03kxZJrseWp GgLeMMFjILIhp75mtBG5X Z8fqU6aJR33ITmekCYkaG BjxNO0SISjbX1no49cQWJ ol5FwzKVyCsDcpCXhJW7J EEDuyaZinRExjAWgTX0UM OIcyhIKGocho0HsNLT9YS 0xolT7oM1cLUSrcwYcdb7 sQITwkNBSyJM3XAkbmkWs F4dvlopzRGA8XPQoIQM9M 0hqNPLAsiHnLBWTlWY2IQ feofTlWH2NFOS7VBz8FQI hciANClxwYXIgDQpBTVMg HQD0MLFaQDExXsIcBYzlQ LDXINgbXPCkPNcak2KvBJ xlcGljWHNhMzAgDQpcZXB rD19di2GFd3Xtz6qmoIhw p6ZgfEIbSE69LQEjqOIfY OY2UV0llNufJHAlDVecbJ XtDYHTIirwklSbGO3WjP= = [facility] Work Phone: Performing Lab y3jvgGVqMYYytTLhPiWy M ZXmNRPer9bmATOihIXsEl EwMzNcZnRuYmpcdWMxXGR rPbXxk1arn037kGQpi7fv QEWkMeL3mITxPERdbYZbW 231GUEoPCnyv4kpf8GhHJ DjyWZao6D8THQLapaavGj 5iOhsW51xs7H7FsuuD2vd JGXuLQXrG5ByYG9fKANqS sq6HCN4FDW5ZVCyMYYdJ1 JzAV6uQESktAQlDFv8x3t qqSqaVOElINO2i8lsFUxq ckLuDW4bxm1cvUc2p0xge zEgRGVmYXVsdCBQYXJhZ3 MscImfAx5bbJe3lWdwFmn yWFI7Ogl5MI3xlb85zbp5 cQhhLEHynnpiAiI9NZomV CQcyohsFJd1WXubDVCfzQ E9TVWucNKvG6DlDQovLD2 hufx9STM5LAkmNCRcXoF8 NDBcaGVhZGVyeTcyMFxmb 061LSB0KvPsKF8tB7Tva6 W4sK3xjWVjIGCdsBCuIiC nEIXkji5rpXDeQHczk5Zy USD1kwB6sSByyMBcIQUpQ A81Ttzjb2BxPyjfy2MaK1 8ihGE2DUyyy9daGZ6dMbW 1yrHaNCcfu2gtvC7yKbQ2 LSfnUR9eTM4hLGXvbS9re mxjXHBnYnJkcmhlYWRccG gzfxDzKb6clOwcGRS1OTo uW9lkmU6sNuV2MLuvO7ps aL7lAXp7QOqyaDP2UHIzn N8mRS6kbmzqg4fcJEgoFD svASBffoT5pmYrSUUxeRH nA0BaqI5vEJEgXW6ejtjt a3ogORU8QGnlIIKaCBK7X hYaXKHyw3Evkru7GsPdz1 GiuQSmVUohL79rl630DHT orqOaO0tjxBMfchpefRMb ckmfKBerpoR8COZuSVZqO WluXGYxXGZzMjJcbGFuZz EwMzNcaGljaFxmMVxkYmN dISTwNLgaS4nfCcZgVxCj AaLTcQWgkj5oaNehJZksa ODcxOWreGU4xS9hUPWmny Wtkp9zURRjfFUKrTP8BCo nfqVuB4ggaadiYPC2VIOs VDZ4K1ysHGBRftHkMQHpH BCoeWKtFLERGSH5TJZ3LX ZkPXKKFDDbQVX7RYJ7NMA wOTRccGFyXHBhclxwYXJk XHBsYWluXGYwXGZzMjRcc JflaY5nKcReBtFsZyaePB 0iXWVeT4zxrBBaWOXlRPV pI7xpReNtuK4neNfoXMrl ZjJcZnMyMlxsdHJjaCBMY FRpkkA7p6Z8ZWrdvLMafj xmMVxmczIyXGxhbmcxMDM jHNchZ1pqCrTwMJPmaDda LYlnp6XqKQBhVDIgRhWiL SxxEYC4i3M9UAruoQVsey RTPvCZFL2duBBnblnwKQ5 ELlxwYXJ9 [facility] Work Phone: [facility] Work Phone: UA DIP, URINE (POC)on 2023 BILIRUBIN UA (POCT) Negative Negative [facility] CLARITY UA (POCT) Clear [facility] COLOR UA (POCT) Yellow [facility] GLUCOSE UA (POCT) Negative Negative mg/dL [facility] Hemoglobin Ql (U) Trace-intact Abnormal Negative [facility] Interpretation and review of laboratory results Abnormal [facility] KETONE UA (POCT) Negative Negative mg/dL [facility] LEUKOCYTES UA (POCT) Trace Abnormal Negative [facility] NITRITE UA (POCT) Negative Negative [facility] PH UA (POCT) 6.0 4.5 - 8.0 [facility] Protein Ql (U) Negative Negative mg/dL [facility] SPECIFIC GRAVITY UA (POCT) 1.010 1.005 - 1.030 [facility] UROBILINOGEN UA (POCT) 0.2 Stephenie l E.U./dL [facility] Location:[facility], [address] [place], [address] [facility] POINT OF CARE [facility] US PROSTATE BIOPSY (POC) GUK I USE ONLYon 10-11-2023 [facility] PSA/PROSTSPECAG SCRNon 03-28 Prostate specific Ag [Mass/Vol] 8.30 ng/mL High <2.60 ng/mL [facility] CBC panel Auto (Bld)on 04-20 -2023 Erythrocyte distribution width (RBC) [Ratio] 12.5 % 11.5 - 15.0 % [facility] Hematocrit (Bld) [Volume fraction] 45.8 % 39.0 - 51.0 % [facility] Hemoglobin (Bld) [Mass/Vol] 15.6 g/dL 13.0 - 17.0 g/dL [facility] MCH (RBC) [Entitic mass] 33.2 pg 26.0 - 34.0 pg [facility] MCHC (RBC) [Mass/Vol] 34.1 g/dL 30.5 - 36.0 g/dL [facility] MCV (RBC) [Entitic vol] 97.4 fL 80.0 - 100.0 fL [facility] Platelet mean volume (Bld) [Entitic vol] 9.0 fL 9.0 - 12.7 fL [facility] Platelets (Bld) [#/Vol] 424 10*3/uL High 150 - 400 k/uL [facility] RBC (Bld) [#/Vol] 4.70 10*6/uL 4.20 - 6.0 0 m/uL [facility] WBC (Bld) [#/Vol] 8.92 10*3/uL 3.70 - 11. 00 k/uL [facility] Comprehensive metabolic 2000 panelon 09-29-2022 Albumin [Mass/Vol] 4.6 g/dL 3.9 - 4.9 g/dL [facility] ALP [Catalytic activity/Vol] 94 U/L 38 - 113 U/L [facility] ALT With P-5'-P [Catalytic activity/Vol] 16 U/L 10 - 54 U/L [facility] Anion gap [Moles/Vol] 12 mmol/L 9 - 18 mmol/L [facility] AST With P-5'-P [Catalytic activity/Vol] 16 U/L 14 - 40 U/L [facility] Bilirubin [Mass/Vol] 0.6 mg/dL 0.2 - 1 .3 mg/dL [facility] Calcium [Mass/Vol] 9.5 mg/dL 8.5 - 10. 2 mg/dL [facility] Chloride [Moles/Vol] 93 mmol/L Low 97 - 10 5 mmol/L [facility] CO2 [Moles/Vol] 26 mmol/L 22 - 30 mmol/L [facility] Creatinine [Mass/Vol] 0.67 mg/dL Low 0.73 - 1.22 mg/dL [facility] Estimated Glomerular Filtration Rate 97 mL/min/1.73m >=60 mL/min/1.73m [facility] Glucose [Mass/Vol] 125 mg/dL High 74 - 99 mg/dL [facility] Potassium [Moles/Vol] 3.7 mmol/L 3.7 - 5.1 mmol/L [facility] Protein [Mass/Vol] 7.6 g/dL 6.3 - 8.0 g/dL [facility] Sodium [Moles/Vol] 131 mmol/L Low 136 - 144 mmol/L [facility] Urea nitrogen [Mass/Vol] 6 mg/dL Low 9 - 24 mg/dL [facility] Lipid 1996 panelon 3 Cholesterol [Mass/Vol] 155 mg/dL <200 mg/dL [facility] Cholesterol in HDL [Mass/Vol] 70 mg/dL >39 mg/dL [facility] Cholesterol in LDL [Mass/Vol] 69 mg/dL <100 mg/dL [facility] Cholesterol in LDL/Cholesterol in HDL [Mass ratio] 0.99 {ratio} <2.54 [facility] Cholesterol in VLDL [Mass/Vol] 16 mg/dL <30 mg/dL [facility] Cholesterol non HDL [Mass/Vol] 85 mg/dL <130 mg/dL [facility] Cholesterol.total/Chen sterol in HDL [Mass ratio] 2.21 {ratio} <5.10 [facility] Fasting Time 12 hrs [facility] Triglyceride [Mass/Vol] 79 mg/dL <150 mg/dL C [facility] Comprehensive Panelon 2019 Urea nitrogen [Mass/Vol] 12 mg/dL Normal 7-18 [facility] Comment on above: Performed By: #### P 14 #### [facility] [address] [place], [place] [address] ALP [Catalytic activity/Vol] 83 U/L Normal 45-117 [facility] Comment on above: Performed By: #### P 14 #### [facility] [address] [place], [place] [address] Protein [Mass/Vol] 7.7 g/dL Normal 6.4-8.2 [facility] Comment on above: Performed By: #### P 14 #### [facility] [address] [place], [place] [address] ALT [Catalytic activity/Vol] 33 U/L Normal 12-78 [facility] Comment on above: Performed By: #### P 14 #### [facility] [address] [place], [place] [address] Bilirubin [Mass/Vol] 0.7 mg/dL Normal 0.2-1.0 [facility] Comment on above: Result Comment: Use of this assay is not recommended for patients undergoing treatment with eltrombopag due to the potential for falsely elevated results. Performed By: #### P 14 #### [facility] [address] [place], [place] [address] AST [Catalytic activity/Vol] 19 U/L Normal 15-37 [facility] Comment on above: Performed By: #### P 14 #### [facility] [address] [place], [place] [address] Creatinine [Mass/Vol] 0.66 mg/dL Low 0.67-1.17 [facility] Comment on above: Result Comment: Use of this assay is not recommended for patients undergoing treatment with phenindione, due to the potential for falsely depressed results. Performed By: #### P 14 #### [facility] [address] [place], [place] [address] Glucose [Mass/Vol] 105 mg/dL High 70-99 [facility] Comment on above: Performed By: #### P 14 #### [facility] [address] [place], [place] [address] Albumin [Mass/Vol] 3.9 g/dL Normal 3.4-5.0 [facility] Comment on above: Performed By: #### P 14 #### [facility] [address] [place], [place] [address] Anion gap [Moles/Vol] 12 mmol/L Normal 8-16 [facility] Comment on above: Performed By: #### P 14 #### [facility] [address] [place], [place] [address] CO2 [Moles/Vol] 26 mmol/L Normal 21-32 [facility] Comment on above: Performed By: #### P 14 #### [facility] [address] [place] [address] Calcium [Mass/Vol] 9.4 mg/dL Normal 8.5-10.1 [facility] Comment on above: Performed By: #### P 14 #### [facility] [address] [place] [id number] Chloride [Moles/Vol] 101 mmol/L Normal 98-107 [facility] Comment on above: Performed By: #### P 14 #### [facility] [address] [place] [id number] Potassium [Moles/Vol] 3.1 mmol/L Low 3.5-5.1 [facility] Comment on above: Performed By: #### P 14 #### [facility] [address] [place] [id number] Sodium [Moles/Vol] 136 mmol/L Normal 136-145 [facility] Comment on above: Performed By: #### P 14 #### [facility] [address] [place] [address] MDRD GFRon 08-15-2019 GFR/1.73 sq M predicted among non-blacks MDRD (S/P/Bld) [Vol rate/Area] mL/min/{1.73_m2} Normal >60mL/min/1.7 3m2 [facility] Comment on above: Result Comment: If t he patient is , multiply the result by 1.210. Performed By: #### G FR #### [facility] [address] [place] [address] Hemoglobin A1Con 08-14-2019 HbA1c (Bld) [Mass fraction] 114 mg/dl Normal [facility] Comment on above: Performed By: #### L A1C #### [place] [address] HbA1c (Bld) [Mass fraction] 5.6 % Normal 4.5-6.2 [facility] Comment on above: Performed By: #### L A1C #### [place] [address] Hemogramon 08-14-2019 Erythrocyte distribution width (RBC) [Ratio] 13.0 % Normal 11.5-15.9 [facility] Comment on above: Performed By: #### L CBC #### [facility] [address] [place], [place] [address] Hematocrit (Bld) [Volume fraction] 46.8 % Normal 42.0-52.0 [facility] Comment on above: Performed By: #### L CBC #### [facility] [address] [place], [place] [address] Hemoglobin (Bld) [Mass/Vol] 16.1 g/dL Normal 14.0-18.0 [facility] Comment on above: Performed By: #### L CBC #### [facility] [address] [place], [place] [address] MCH (RBC) [Entitic mass] 32.9 pg High 27.0-31.0 [facility] Comment on above: Performed By: #### L CBC #### [place] [address] MCHC (RBC) [Mass/Vol] 34.4 % Normal 32.0-36.0 [facility] Comment on above: Performed By: #### L CBC #### [facility] [address] [place] [address] MCV (RBC) [Entitic vol] 95.5 fL High 80.0-94.0 [facility] Comment on above: Performed By: #### L CBC #### [facility] [address] [place], [place] [address] Platelet mean volume (Bld) [Entitic vol] 9.5 fL Normal 7.1-10.5 [facility] Comment on above: Performed By: #### L CBC #### [facility] [address] [place], [place] [address] Platelets (Bld) [#/Vol] 385 thou/cmm Normal 150-400 [facility] Comment on above: Performed By: #### L CBC #### [facility] [address] [place], [place] [address] RBC (Bld) [#/Vol] 4.90 mil/cmm Normal 4.60-6.20 [facility] Comment on above: Performed By: #### L CBC #### [facility] [address] [place], [place] [address] WBC (Bld) [#/Vol] 8.7 thou/cmm Normal 4.8-10.5 [facility] Comment on above: Performed By: #### L CBC #### [facility] [address] [place] [address] Lipid Profileon 08-14-2019 Cholesterol [Mass/Vol] 162 mg/dL Normal 0-199 [facility] Comment on above: Performed By: #### L LIPD #### [facility] [address] [place] [address] Cholesterol in HDL [Mass/Vol] 71 mg/dL Normal >40 [facility] Comment on above: Performed By: #### L LIPD #### [place] [address] Cholesterol in LDL [Mass/Vol] 70 mg/dL Normal 0-150 [facility] Comment on above: Performed By: #### L LIPD #### [facility] [address] [place] [address] Cholesterol.total/Chen sterol in HDL [Mass ratio] 2.3 {ratio} Normal 2.1-7.3 [facility] Comment on above: Performed By: #### L LIPD #### [facility] [address] [place] [address] Triglyceride Blood 104 mg/dL Normal 0-149 [facility] Comment on above: Performed By: #### L LIPD #### [place] [address] Risk Factor See Below Normal [facility] Comment on above: Result Comment: Card iac Risk Factor The CHD risk factor is based on the total Chol/HDL ratio. Other factors affect CHD risk such as hypertension, smoking, diabetes, severe obesity and premature CHD. Cardiac Risk Total Chol/HDL ratio Men Women 1/2 avg risk 3.4-4.9 3.3-6.3 Avg risk 5.0-9.5 6.4-7.0 2x avg risk 9.6-23.3 7.1-10.9 3x avg risk >23.4 >11.0 Performed By: #### L LIPD #### [place] [id number] Vital Signs Date Time Vital Sign Value Performing Clinician Faci brent 03-25-2025 15:12-0400 Diastolic blood pressure 76 mm[Hg] Dr. Renetta Cline DO Work Phone: [facility] 03-25-2025 15:12-0400 Systolic blood pressure 152 mm[Hg] Dr. Renetta Cline DO Work Phone: [facility] 03-25-2025 15:01-0400 Body height 175.[address] Renetta Cline DO Work Phone: [facility] 03-25-2025 15:01-0400 Body mass index (BMI) [Ratio] 30.8 kg/m2 Dr. Renetta Cline DO Work Phone: [facility] 03-25-2025 15:01-0400 Body weight 94.[address] Renetta Cline DO Work Phone: [facility] 03-25-2025 15:01-0400 Heart rate 100 /min Dr. Renetta Cline DO Work Phone: [facility] 03-25-2025 15:01-0400 Respiratory rate 18 /min Dr. Renetta Cline DO Work Phone: [facility] 03-25-2025 15:01-0400 SaO2% (BldA) [Mass fraction] 93 % Dr. Renetta Cline DO Work Phone: [facility] 03-19-2025 15:05-0400 Body temperature 98.2 [degF] Dr. Renetta Cline DO Work Phone: [facility] 03-19-2025 15:05-0400 Body weight 94.[address] Renetta Cline DO Work Phone: [facility] 03-19-2025 15:05-0400 Diastolic blood pressure 90 mm[Hg] Dr. Renetta Cline DO Work Phone: [facility] 03-19-2025 15:05-0400 Heart rate 92 /min Dr. Renetta Cline DO Work Phone: [facility] 03-19-2025 15:05-0400 Respiratory rate 16 /min Dr. Renetta Cline DO Work Phone: [facility] 03-19-2025 15:05-0400 SaO2% (BldA) [Mass fraction] 96 % Dr. Renetta Cline DO Work Phone: [facility] 03-19-2025 15:05-0400 Systolic blood pressure 161 mm[Hg] Dr. Renetta Cline DO Work Phone: [facility] 02-07-2025 13:06-0400 Diastolic blood pressure 83 mm[Hg] Anthony Egan MD Work Phone: [facility] 02-07-2025 13:06-0400 Systolic blood pressure 137 mm[Hg] Anthony Egan MD Work Phone: [facility] 02-07-2025 12:58-0400 Heart rate 116 /min Anthony Egan MD Work Phone: [facility] 02-07-2025 12:58-0400 SaO2% (BldA) [Mass fraction] 95 % Anthony Egan MD Work Phone: [facility] 01-28-2025 13:05-0400 Body height 174 cm Juan Miguel Rodriguez MD Work Phone: [facility] 01-28-2025 13:05-0400 Body mass index (BMI) [Ratio] 31.51 kg/m2 Juan Miguel Rodriguez MD Work Phone: [facility] 01-28-2025 13:05-0400 Body weight 95.4 kg Juan Miguel Rodriguez MD Work Phone: [facility] 01-28-2025 13:05-0400 Diastolic blood pressure 72 mm[Hg] Juan Miguel Rodriguez MD Work Phone: [facility] 01-28-2025 13:05-0400 Heart rate 108 /min Juan Miguel Rodriguez MD Work Phone: [facility] 01-28-2025 13:05-0400 SaO2% (BldA) [Mass fraction] 95 % Juan Miguel Rodriguez MD Work Phone: [facility] 01-28-2025 13:05-0400 Systolic blood pressure 138 mm[Hg] Juan Miguel Rodriguez MD Work Phone: [facility] 12-19-2024 12:36-0400 Diastolic blood pressure 83 mm[Hg] Anthony Egan MD Work Phone: [facility] 12-19-2024 12:36-0400 Systolic blood pressure 192 mm[Hg] Anthony Egan MD Work Phone: [facility] 12-19-2024 12:33-0400 Heart rate 102 /min Anthony Egan MD Work Phone: [facility] 12-19-2024 12:33-0400 SaO2% (BldA) [Mass fraction] 96 % Anthony Egan MD Work Phone: [facility] 11-01-2024 12:27-0400 Diastolic blood pressure 81 mm[Hg] Anthony Egan MD Work Phone: [facility] 11-01-2024 12:27-0400 Systolic blood pressure 129 mm[Hg] Anthony Egan MD Work Phone: [facility] 11-01-2024 12:24-0400 Heart rate 117 /min Anthony Egan MD Work Phone: [facility] 11-01-2024 12:24-0400 SaO2% (BldA) [Mass fraction] 96 % Anthony Egan MD Work Phone: [facility] 2024 13:26-0400 Diastolic blood pressure 60 mm[Hg] Renetta Sheets DO Work Phone: [facility] 2024 13:26-0400 Systolic blood pressure 122 mm[Hg] Renetta Sheets DO Work Phone: [facility] 2024 12:58-0400 Body height 174 cm Renetta Sheets DO Work Phone: [facility] 2024 12:58-0400 Body mass index (BMI) [Ratio] 31.62 kg/m2 Renetta Sheets DO Work Phone: [facility] 2024 12:58-0400 Body temperature 98.91 [degF] Renetta Sheets DO Work Phone: [facility] 2024 12:58-0400 Body weight 95.71 kg Renetta Sheets DO Work Phone: [facility] 2024 12:58-0400 Heart rate 108 /min Renetta Sheets DO Work Phone: [facility] 2024 12:58-0400 Respiratory rate 16 /min Renetta Sheets DO Work Phone: [facility] 2024 12:58-0400 SaO2% (BldA) [Mass fraction] 95 % Renetta Sheets DO Work Phone: [facility] 03-19-2024 13:47-0400 Diastolic blood pressure 70 mm[Hg] Renetta Sheets DO Work Phone: [facility] 03-19-2024 13:47-0400 Systolic blood pressure 110 mm[Hg] Renetta Sheets DO Work Phone: [facility] 03-19-2024 13:15-0400 Body height 175.3 cm Renetta Sheets DO Work Phone: [facility] 03-19-2024 13:15-0400 Body mass index (BMI) [Ratio] 32.33 kg/m2 Renetta Sheets DO Work Phone: [facility] 03-19-2024 13:15-0400 Body temperature 98.01 [degF] Renetta Sheets DO Work Phone: [facility] 03-19-2024 13:15-0400 Body weight 99.34 kg Renetta Sheets DO Work Phone: [facility] 03-19-2024 13:15-0400 Heart rate 116 /min Renetta Sheets DO Work Phone: [facility] 03-19-2024 13:15-0400 SaO2% (BldA) [Mass fraction] 93 % Renetta Sheets DO Work Phone: [facility] 10-11-2023 10:29-0400 Body height 175.3 cm Scotty Mejia MD Work Phone: [facility] 10-11-2023 10:29-0400 Body mass index (BMI) [Ratio] 31.6 kg/m2 Scotty Mejia MD Work Phone: [facility] 10-11-2023 10:29-0400 Body weight 97.07 kg Scotty Mejia MD Work Phone: [facility] 10-11-2023 10:29-0400 Diastolic blood pressure 73 mm[Hg] Scotty Mejia MD Work Phone: [facility] 10-11-2023 10:29-0400 Heart rate 82 /min Scotty Mejia MD Work Phone: [facility] 10-11-2023 10:29-0400 Respiratory rate 14 /min Scotty Mejia MD Work Phone: [facility] 10-11-2023 10:29-0400 Systolic blood pressure 186 mm[Hg] Scotty Mejia MD Work Phone: [facility] 05-10-2023 13:01-0500 Body height 175.3 cm Scotty Mejia MD Work Phone: [facility] 05-10-2023 13:01-0500 Body weight 94.8 kg Scotty Mejia MD Work Phone: [facility] 03-28-2023 12:54-0400 Body height 175.3 cm Renetta Sheets DO Work Phone: [facility] 03-28-2023 12:54-0400 Body temperature 98.1 [degF] Renetta Sheets DO Work Phone: [facility] 03-28-2023 12:54-0400 Body weight 94.8 kg Renetta Sheets DO Work Phone: [facility] 03-28-2023 12:54-0400 Diastolic blood pressure 70 mm[Hg] Renetta Sheets DO Work Phone: [facility] 03-28-2023 12:54-0400 Heart rate 86 /min Renetta Sheets DO Work Phone: [facility] 03-28-2023 12:54-0400 Respiratory rate 16 /min Renetta Sheets DO Work Phone: [facility] 03-28-2023 12:54-0400 SaO2% (BldA) [Mass fraction] 94 % Renetta Sheets DO Work Phone: [facility] 03-28-2023 12:54-0400 Systolic blood pressure 122 mm[Hg] Renetta Sheets DO Work Phone: [facility] 11-16-2022 10:50-0400 Diastolic blood pressure 86 mm[Hg] Sreedhar Rojas MD Work Phone: [facility] 11-16-2022 10:50-0400 Heart rate 116 /min Sreedhar Rojas MD Work Phone: [facility] 11-16-2022 10:50-0400 Systolic blood pressure 180 mm[Hg] Sreedhar Rojas MD Work Phone: [facility] 11-16-2022 10:47-0400 Body temperature 99.1 [degF] Sreedhar Rojas MD Work Phone: [facility] 11-16-2022 10:47-0400 Body weight 95.39 kg Sreedhar Rojas MD Work Phone: [facility] 11-16-2022 10:47-0400 SaO2% (BldA) [Mass fraction] 96 % Sreedhar Rojas MD Work Phone: [facility] 09-26-2022 13:38-0400 Diastolic blood pressure 68 mm[Hg] Renetta Sheets DO Work Phone: [facility] 09-26-2022 13:38-0400 Systolic blood pressure 126 mm[Hg] Renetta Sheets DO Work Phone: [facility] 09-26-2022 13:35-0400 Body height 175.3 cm Renetta Sheets DO Work Phone: [facility] 09-26-2022 13:35-0400 Body temperature 98.2 [degF] Renetta Sheets DO Work Phone: [facility] 09-26-2022 13:35-0400 Body weight 95.71 kg Renetta Sheets DO Work Phone: [facility] 09-26-2022 13:35-0400 Heart rate 100 /min Renetta Sheets DO Work Phone: [facility] 09-26-2022 13:35-0400 Respiratory rate 16 /min Renetta Sheets DO Work Phone: [facility] 09-26-2022 13:35-0400 SaO2% (BldA) [Mass fraction] 96 % Renetta Sheets DO Work Phone: [facility] 10-01-2021 11:35-0400 Diastolic blood pressure 68 mm[Hg] Renetta Sheets DO Work Phone: [facility] 10-01-2021 11:35-0400 Systolic blood pressure 120 mm[Hg] Renetta Sheets DO Work Phone: [facility] 10-01-2021 11:34-0400 Body height 175.3 cm Renetta Sheets DO Work Phone: [facility] 10-01-2021 11:34-0400 Body temperature 98.71 [degF] Renetta Sheets DO Work Phone: [facility] 10-01-2021 11:34-0400 Body weight 94.62 kg Renetta Sheets DO Work Phone: [facility] 10-01-2021 11:34-0400 Heart rate 85 /min Renetta Sheets DO Work Phone: [facility] 10-01-2021 11:34-0400 Respiratory rate 16 /min Renetta Sheets DO Work Phone: [facility] 10-01-2021 11:34-0400 SaO2% (BldA) [Mass fraction] 95 % Renetta Sheets DO Work Phone: [facility] Encounters Encounter Date Encounter Type Care Provider Facility Start: 04-21-2025 ambulatory Rojas Marion Facility:[facility] Start: 04-18-2025 Encounter for other preprocedural examination Rojas Marion [facility] Start: 04-11-2025 End: 04-11-2025 ambulatory RENETTA Nat MARLYN Facility:[facility] Start: 03-25-2025 End: 03-25-[address] Kim Corral MD -[facility] Work Phone: Start: 03-25-2025 End: 03-25-[address] Kim Corral MD [facility] Start: 03-25-2025 End: 03-25-[address] Renetta Cline DO Work Phone: -[facility] Start: 03-20-2025 Encounter for other preprocedural examination Rojas Marion [facility] Start: 03-19-[address] Dr. Renetta Cline DO Work Phone: [facility] Start: 03-19-2025 End: 03-19-[address] Rojas Marion MD -[facility] Work Phone: Start: 03-19-2025 End: 03-19-[address] Renetta Cline DO Work Phone: -[facility] Start: 02-14-2025 End: 02-14-2025 Telephone encounter Anthony Egan MD Work Phone: Vascular Surgery Comment on above: Opened In Error Start: 02-07-2025 End: 02-07-2025 Patient encounter procedure Anthony Egan MD Work Phone: Vascular Surgery Comment on above: Carotid stenosis, as ymptomatic, bilateral (Primary Dx); Stenosis of left subclavian artery; Peripheral artery disease; Mixed hyperlipidemia Start: 02-07-2025 End: 02-07-2025 ambulatory ANTHONY EGAN Facility:[facility] Start: 01-31-2025 End: 02-03-2025 Follow-up encounter Juan Miguel Rodriguez MD Work Phone: me Provider Adult Start: 01-31-2025 ambulatory ANTHONY EGAN Facility: [facility] Start: 01-31-2025 End: 01-31-2025 Subsequent hospital visit by physician Echo [facility] Work Phone: Cardiology Lab Comment on above: Right carotid bruit [R09.89] Start: 01-30-2025 ambulatory JUAN MIGUEL RODRIGUEZ Faci lity:[facility] Start: 01-30-2025 End: 01-30-2025 Subsequent hospital visit by physician Stress Lab 1 [facility] Work Phone: Cardiology Lab Comment on above: Encounter for screen ing for cardiovascular disorders [Z13.6] Start: 01-28-2025 End: 01-28-2025 Patient encounter procedure Juan Miguel Rodrigeuz MD Work Phone: Cardiology Comment on above: Encounter for screen ing for cardiovascular disorders (Primary Dx); Dyspnea on exertion; Silent myocardial ischemia; Stenosis of left subclavian artery; Essential hypertension; Mixed hyperlipidemia; LVH (left ventricular hypertrophy); Peripheral artery disease; Smoker; Alcohol dependence, daily use (HCC); Obesity, Class I, BMI 30-34.9; Sinus tachycardia Start: 01-28-2025 End: 01-28-2025 ambulatory JUAN MIGUEL RODRIGUEZ Facility: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 Start: 12-10-2024 End: 12-10-2024 Telephone encounter Renetta C Sheets DO Work Phone: Vascular Surgery Comment on above: Patient Update (Elev ated HR and BP ) Start: 12-10-2024 End: 12-10-2024 ambulatory ANTHONY EGAN Facility:[facility] Start: 11-18-2024 End: 11-19-2024 Refill Renetta C Sheets DO Work Phone: [facility] Comment on above: Refill Request Start: 11-01-2024 End: 11-01-2024 Patient encounter procedure Anthony Eagn MD Work Phone: Vascular Surgery Comment on above: Right carotid bruit (Primary Dx); Peripheral artery disease; Primary hypertension; Mixed hyperlipidemia; Nicotine dependence, cigarettes, uncomplicated; Stenosis of left subclavian artery Start: 11-01-2024 End: 11-01-2024 ambulatory ANTHONY EGAN Facility:[facility] Start: 10-11-2024 End: 10-11-2024 Refill Renetta C Sheets DO Work Phone: [facility] Comment on above: Refill Request Start: 2024 End: 2024 ambulatory RENETTA C SHEETS Facility:[facility] Start: 2024 End: 2024 Patient encounter procedure Renetta C Sheets DO Work Phone: [facility] Comment on above: Medicare annual well ness visit, subsequent (Primary Dx); Peripheral artery disease; Essential hypertension; Mixed hyperlipidemia; Smoker; Obesity, Class I, BMI 30-34.9 Start: 09-10-2024 End: 09-10-2024 Refill Renetta C Sheets DO Work Phone: [facility] Comment on above: Refill Request Start: 07-30-2024 End: 07-30-2024 Refill Renetta C Sheets DO Work Phone: [facility] Comment on above: Refill Request Start: 04-25-2024 End: 04-25-2024 Refill Renetta C Sheets DO Work Phone: [facility] Comment on above: Refill Request Start: 03-19-2024 End: 03-19-2024 Patient encounter procedure Renetta C Sheets DO Work Phone: [facility] Comment on above: Essential hypertensi on (Primary Dx); Mixed hyperlipidemia; Smoker; Obesity, Class I, BMI 30-34.9 Start: 02-19-2024 End: 02-19-2024 Telephone encounter Renetta C Sheets DO Work Phone: [facility] Comment on above: Results Start: 01-21-2024 End: 01-30-2024 Refill Renetta C Sheets DO Work Phone: [facility] Comment on above: Refill Request Start: 10-31-2023 Refill Ina Madera Niko brian APRN.[employer] Work Phone: [facility] Comment on above: Refill Request Start: 10-27-2023 End: 10-27-2023 Patient encounter procedure Scotty Mejia MD Work Phone: Urology Comment on above: Elevated PSA (Primar y Dx); Benign prostatic hyperplasia without lower urinary tract symptoms Start: 10-11-2023 End: 10-11-2023 Patient encounter procedure Scotty Mejia MD Work Phone: Urology Comment on above: Elevated PSA (Primar y Dx) Start: 08-30-2023 Telephone encounter Scotty thomson MD Work Phone: Urology Comment on above: Medication Problem Start: 07-18-2023 Refill Renetta C She ets DO Work Phone: [facility] Comment on above: Refill Request Start: 05-10-2023 End: 05-10-2023 Patient encounter procedure Scotty Mejia MD Work Phone: Urology Comment on above: Elevated PSA (Primar y Dx) Start: 04-14-2023 Refill Renetta C She ets DO Work Phone: [facility] Comment on above: Refill Request; Refi ll Request Start: 03-28-2023 Telephone encounter Renetta C Sheets DO Work Phone: [facility] Comment on above: Results Start: 03-28-2023 End: 03-28-2023 Patient encounter procedure Renetta C Sheets DO Work Phone: [facility] Comment on above: Essential hypertensi on (Primary Dx); Mixed hyperlipidemia; Thrombocytosis; Peripheral artery disease (HCC); Amyloidosis, unspecified type (HCC); History of elevated prostate specific antigen (PSA); Screening for prostate cancer; Alcohol dependence, daily use (HCC); Smoker; Obesity, Class I, BMI 30-34.9 Start: 02-09-2023 ambulatory [facility] Comment on above: Population Health Na vigation Outreach (ACO Member Needs PCP Appt for HTN FU) Start: 02-01-2023 ambulatory [facility] Comment on above: Population Health Na vigation Outreach (ACO Attributed Member Needs HTN FU Appt) Start: 12-23-2022 Refill Renetta C She ets DO Work Phone: [facility] Comment on above: Refill Request Start: 11-16-2022 End: 11-16-2022 ambulatory Sreedhar Rojas MD Work Phone: Hematology/Oncology Comment on above: Thrombocytosis (Prim tommy Dx); Essential (hemorrhagic) thrombocythemia (HCC) Start: 11-16-2022 End: 11-16-2022 Patient encounter procedure Sreedhar Rojas MD Work Phone: [facility] Start: 10-17-2022 Refill Renetta C She ets DO Work Phone: [facility] Comment on above: Refill Request Start: 09-30-2022 Refill Renetta C She ets DO Work Phone: [facility] Comment on above: Refill Request Start: 09-30-2022 Telephone encounter Renetta C Sheets DO Work Phone: [facility] Comment on above: Results Start: 09-26-2022 End: 09-26-2022 Patient encounter procedure Renetta C Sheets DO Work Phone: [facility] Comment on above: Essential hypertensi on (Primary Dx); Amyloidosis, unspecified type (HCC); Other cardiomyopathy (HCC); Peripheral artery disease (HCC) Start: 04-01-2022 Refill Renetta C She ets DO Work Phone: [facility] Comment on above: Refill Request Start: 12-02-2021 Telephone encounter Renetta C Sheets DO Work Phone: [facility] Comment on above: Results Start: 10-01-2021 End: 10-01-2021 Patient encounter procedure Renetta Cline DO Work Phone: [facility] Comment on above: Essential hypertensi on (Primary Dx); Screening for prostate cancer; Sinus tachycardia; Peripheral artery disease (HCC); Obesity, Class I, BMI 30-34.9; BMI 30.0-30.9,adult Procedures Date Procedure Procedure Detail Performing Clinician Start: 01-31-2025 Echo tthrc r-t 2d w/wom-mode compl spec&colr d Anthony Egan MD Work Phone: Start: 01-30-2025 Myocardial spect mul tiple studies Juan Miguel Rodriguez MD Work Phone: Start: 01-28-2025 Ecg routine ecg w/le ast 12 lds i&r only [facility] Provider Start: 10-11-2023 Prostate biopsy, any mthd Scotty Mejia MD Work Phone: Start: 10-11-2023 Us pelvic nonobstetr ic image dcmtn limited/f/u Scotty Mejia MD Work Phone: Start: 10-11-2023 Urnls dip stick/tabl et rgnt auto w/o microscopy Scotty Mejia MD Work Phone: Start: 09-29-2022 Lipid 1996 panel - S kenyon or Plasma Renetta Cline DO Work Phone: Start: 02-25-2021 Adult depression screening assessment Renetta Cline DO Work Phone: Start: 02-23-2018 Colonoscopy Renetta morelos DO Work Phone: Plan of Treatment Date Care Activity Detail Author Start: 02-24-2028 Colonoscopy COLONOSCOPY [facility] Start: 02-24-2028 COLORECTAL CANCER SCREENING COLORECTAL CANCER SCREENING [facility] Start: 02-24-2028 Screening for malignant neoplasm of colon [facility] Start: 11-01-2027 Urine microalbumin profile [facility] Start: 09-30-2027 Lipid 1996 panel - Serum or Plasma Lipid Screening [facility] Start: 09-30-2027 Lipid panel Lipid Screening [facility] Start: 09-30-2027 LIPID SCREEN LIPID SCREEN [facility] Start: 02-16-2027 Diabetes Screening Diabetes Screening [facility] Start: 11-12-2026 LIPID SCREEN LIPID SCREEN [facility] Start: 11-01-2025 End: 11-01-2025 US Carotid arteries - bilateral US CAROTID ARTERIES [facility] Vascular Lab Routine Right carotid bruit Expected: 11/01/2025, Expires: 11/01/2025 [facility] Work Phone: Comment on above: Expected: 11/01/2025, Expires: Start: 09-29-2025 DIABETES SCREEN DIABETES SCREEN [facility] Start: 09-29-2025 Diabetes Screening Diabetes Screening [facility] Start: 2025 Annual PCP Team Chronic Disease Visit Annual PCP Team Chronic Disease Visit [facility] Start: 2025 Anxiety Screening Anxiety Screening [facility] Comment on above: Postponed from 09/16/1965 (Postponed To Appropriate Date) Start: 2025 BP Controlled (<130/80) BP Controlled (<130/80) [facility] in Start: 2025 Depression Screening Depression Screening [facility] Comment on above: Postponed from 09/16/1965 (Postponed To Appropriate Date) Start: 2025 Medicare Annual Wellness Visit Medicare Annual Wellness Visit [facility] Start: 2025 RSV Vaccine (1 - 1-dose 75+ series) RSV Vaccine (1 - 1-dose 75+ series) [facility] Comment on above: Postponed from 09/16/2022 (Declined at t his time) Start: 2025 Shingrix Vaccine (1 of 2) Shingrix Vaccine (1 of 2) [facility] Comment on above: Postponed from 09/16/1997 (Declined at t his time) Start: 09-07-2025 LIPID SCREEN LIPID SCREEN [facility] Start: 03-20-2025 End: 03-20-2025 Patient encounter procedure 03/20/2025 1:20 PM EDT Office Visit [address] [address] Renetta Cline DO [address] [facility] [facility] [place] [address] 6 MTH F/U HTN [facility] Comment on above: 6 MTH F/U HTN Start: 03-19-2025 Annual PCP Team Chronic Disease Visit Annual PCP Team Chronic Disease Visit [facility] Start: 03-19-2025 BP Controlled (<130/80) BP Controlled (<130/80) [facility] Start: 03-19-2025 Covid-19 Vaccine ( season) Covid-19 Vaccine ( season) [facility] Comment on above: Postponed from 02/11/2024 (Declined at t his time) Start: 03-19-2025 Pneumococcal Vaccine: 50+ (1 of 2 - PCV) Pneumococcal Vaccine: 50+ (1 of 2 - PCV) [facility] Comment on above: Postponed from 09/16/1966 (Declined at t his time) Start: 03-19-2025 Pneumococcal Vaccine: 65+ (1 of 2 - PCV) Pneumococcal Vaccine: 65+ (1 of 2 - PCV) [facility] Comment on above: Postponed from 09/16/1953 (Declined at t his time) Start: 02-10-2025 Influenza vaccination [facility] Start: 02-07-2025 End: 02-07-2025 Patient encounter procedure 02/07/2025 1:00 PM EDT Office Visit Vascular Surgery [address] [address] Anthony Egan MD [address], [address] [place] [address] testing follow up V[facility] Surgery Comment on above: testing follow up Start: 01-31-2025 End: 01-31-2025 Patient encounter procedure 01/31/2025 12:00 PM EDT Appointment Cardiology Lab [address] [place] [address] Dx: Right carotid bruit [R09.89]; Dyspnea on exertion [R06.09] [facility] Comment on above: Dx: Right carotid bruit [R09.89]; Dyspne a on exertion [R06.09] Start: 01-30-2025 End: 01-30-2025 Patient encounter procedure Molecular Imaging Comment on above: stress test.add per Анна stress test Start: 01-28-2025 End: 01-28-2025 Patient encounter procedure 01/28/2025 1:30 PM EDT Office Visit Cardiology [address] [address] [place] [address] [place] [address] Dx: Dyspnea on exertion [R06.09] Cardiology Comment on above: Dx: Dyspnea on exertion [R06.09] Start: 12-19-2024 End: 12-19-2024 Patient encounter procedure 12/19/2024 12:30 PM EDT Office Visit Vascular Surgery [address] [id number] Anthony Egan MD [address] [address] FOLLOW UP WTH PVR AND CAROTID TESTING Vascular Surgery Comment on above: FOLLOW UP WTH PVR AND CAROTID TESTING Start: 12-10-2024 End: 12-10-2024 Patient encounter procedure Vascular Surgery Comment on above: FOLLOW UP WTH PVR AND CAROTID TESTING Start: 12-09-2024 Influenza vaccination Influenza Vaccine (#1) [facility] Comment on above: Postponed from 02/11/2024 (Declined at t his time) Start: 11-12-2024 DIABETES SCREEN DIABETES SCREEN [facility] Start: 11-01-2024 End: 11-01-2024 Patient encounter procedure 11/01/2024 12:30 PM EDT Office Visit Vascular Surgery [address] [address] Anthony Egan MD [address] [address] Peripheral artery disease Vascular Surgery Comment on above: Peripheral artery disease Start: 2024 End: 2024 Patient encounter procedure 2024 1:00 PM EDT Office Visit [facility] [address] [place] [address] Renetta Cline DO [address] [place] [address] Medicare Wellness [facility] Comment on above: Medicare Wellness Start: 06-12-2024 Advance Directive Discussion Advance Directive Discussion [facility] Start: 03-28-2024 Annual PCP Team Chronic Disease Visit Annual PCP Team Chronic Disease Visit [facility] Start: 03-28-2024 BP Controlled (<130/80) BP Controlled (<130/80) [facility] Start: 03-28-2024 RSV Vaccine (1 - 1-dose 60+ series) RSV Vaccine (1 - 1-dose 60+ series) [facility] Comment on above: Postponed from 2007 (Declined at t his time) Start: 03-28-2024 Shingrix Vaccine (1 of 2) Shingrix Vaccine (1 of 2) [facility] Comment on above: Postponed from 09/16/1997 (Declined at t his time) Start: 03-19-2024 End: 03-19-2024 Patient encounter procedure 03/19/2024 1:20 PM EDT Office Visit [facility] [address] [place] [address] Renetta Cline DO [address] [place] [address] Follow up [facility] Comment on above: Follow up Start: 02-11-2024 Covid-19 Vaccine ( season) Covid-19 Vaccine ( season) [facility] Start: 02-11-2024 Influenza vaccination [facility] Start: 01-23-2024 End: 04-23-2024 CBC panel - Blood by Automated count COMPLETE BLOOD COUNT Lab Routine Mixed hyperlipidemia Expected: 01/23/2024, Expires: 04/23/2024 [facility] Work Phone: Comment on above: Expected: 01/23/2024, Expires: Start: 01-23-2024 End: 04-23-2024 Comprehensive metabolic 2000 panel - Serum or Plasma COMPREHENSIVE METABOLIC PANEL Lab Routine Mixed hyperlipidemia Expected: 01/23/2024, Expires: 04/23/2024 [facility] Comment on above: Expected: 01/23/2024, Expires: Start: 01-23-2024 End: 04-23-2024 Lipid 1996 panel - Serum or Plasma LIPID PANEL BASIC Lab Routine Mixed hyperlipidemia Expected: 01/23/2024, Expires: 04/23/2024 [facility] Comment on above: Expected: 01/23/2024, Expires: Start: 12-10-2023 Influenza [facility] Comment on above: Postponed from 02/10/2023 (Declined at t his time) Start: 09-27-2023 ANNUAL PCP TEAM CHRONIC DISEASE VISIT ANNUAL PCP TEAM CHRONIC DISEASE VISIT [facility] Start: 09-27-2023 BP CONTROLLED (<130/80) BP CONTROLLED (<130/80) [facility] Start: 09-08-2023 DIABETES SCREEN DIABETES SCREEN [facility] Start: 06-12-2023 Advance Directive Discussion Advance Directive Discussion [facility] Start: 06-12-2023 Behavioral Health Screening Behavioral Health Screening [facility] Start: 06-12-2023 Depression Assessment Depression Assessment [facility] Start: 06-12-2023 End: 09-11-2023 Prostate Specific Ag Free [Mass/volume] in Serum or Plasma PSA FREE Lab Routine Elevated PSA Expected: 06/12/2023, Expires: 09/11/2023 [facility] Work Phone: Comment on above: Expected: 06/12/2023, Expires: Start: 04-01-2023 ANNUAL PCP TEAM CHRONIC DISEASE VISIT ANNUAL PCP TEAM CHRONIC DISEASE VISIT [facility] Start: 04-01-2023 BP CONTROLLED (<130/80) BP CONTROLLED (<130/80) [facility] Start: 04-01-2023 COVID-19 VACCINE (#1) COVID-19 VACCINE (#1) [facility] Comment on above: Postponed from 03/18/1946 (Declined at t his time) Start: 04-01-2023 DEPRESSION ASSESSMENT DEPRESSION ASSESSMENT [facility] Comment on above: Postponed from 06/12/2022 (Postponed To Appropriate Date) Start: 04-01-2023 Influenza vaccination LUNG CANCER SCREENING [facility] Comment on above: Postponed from 12/02/2021 (Declined at t his time) Start: 04-01-2023 Pneumococcal Vaccine: 65+ (1 - PCV) Pneumococcal Vaccine: 65+ (1 - PCV) [facility] Comment on above: Postponed from 09/16/1951 (Declined at t his time) Start: 04-01-2023 PNEUMOCOCCAL: 65+ (1 - PCV) PNEUMOCOCCAL: 65+ (1 - PCV) [facility] Comment on above: Postponed from 09/16/1951 (Declined at t his time) Start: 02-10-2023 Covid-19 Vaccine (2022- season) Covid-19 Vaccine ( season) [facility] Start: 02-10-2023 Influenza vaccination [facility] Start: 12-09-2022 Influenza vaccination INFLUENZA (#1) [facility] Comment on above: Postponed from 02/10/2022 (Declined at t his time) Start: 11-16-2022 End: 11-17-2023 Cobalamin (Vitamin B12) [Mass/volume] in Serum or Plasma VITAMIN B12 BLOOD Lab Routine Thrombocytosis Essential (hemorrhagic) thrombocythemia (HCC) Expected: 11/16/2022, Expires: 11/17/2023 [facility] Work Phone: Comment on above: Expected: 11/16/2022, Expires: 4 Start: 11-16-2022 End: 01-16-2023 Erythrocyte sedimentation rate SED RATE WESTERGREN Lab Routine Thrombocytosis Essential (hemorrhagic) thrombocythemia (HCC) Expected: 11/16/2022, Expires: 01/16/2023 [facility] Work Phone: Comment on above: Expected: 11/16/2022, Expires: 3 Start: 11-16-2022 End: 11-17-2023 Ferritin [Mass/volume] in Serum or Plasma FERRITIN BLD Lab Routine Thrombocytosis Essential (hemorrhagic) thrombocythemia (HCC) Expected: 11/16/2022, Expires: 11/17/2023 [facility] Work Phone: Comment on above: Expected: 11/16/2022, Expires: 4 Start: 11-16-2022 End: 11-17-2023 Iron and Iron binding capacity panel - Serum or Plasma IRON + TIBC Lab Routine Thrombocytosis Essential (hemorrhagic) thrombocythemia (HCC) Expected: 11/16/2022 (Approximate), Expires: 11/17/2023 [facility] Work Phone: Comment on above: Expected: 11/16/2022 (Approximate), Expi res: 11/17/2023 Start: 11-16-2022 End: 01-16-2023 MYELOPROLIFERATIVE NEOPLASM PANEL BLOOD MYELOPROLIFERATIVE NEOPLASM PANEL BLOOD Lab Routine Thrombocytosis Essential (hemorrhagic) thrombocythemia (HCC) Expected: 11/16/2022, Expires: 01/16/2023 [facility] Work Phone: Comment on above: Expected: 11/16/2022, Expires: 3 Start: 10-01-2022 ANNUAL PCP TEAM CHRONIC DISEASE VISIT ANNUAL PCP TEAM CHRONIC DISEASE VISIT [facility] Start: 10-01-2022 BP CONTROLLED (<130/80) BP CONTROLLED (<130/80) [facility] in Start: 10-01-2022 SHINGRIX VACCINE (1 of 2) SHINGRIX VACCINE (1 of 2) [facility] Comment on above: Postponed from 09/16/1997 (Declined at t his time) Start: 09-16-2022 RSV Vaccine (1 - 1-dose 75+ series) RSV Vaccine (1 - 1-dose 75+ series) [facility] Start: 06-12-2022 Depression Assessment Depression Assessment [facility] Start: 02-25-2022 Adult depression screening assessment DEPRESSION SCREENING [facility] Start: 02-25-2022 COVID-19 VACCINE (#1) COVID-19 VACCINE (#1) [facility] Comment on above: Postponed from 09/16/1950 (Declined at t his time) Start: 02-25-2022 COVID-19 VACCINE (1) COVID-19 VACCINE (1) [facility] Comment on above: Postponed from 09/16/1950 (Declined at t his time) Start: 02-10-2022 Influenza [facility]ZA ([facility] Ended[facility] Start: 02-04-2022 BP CONTROLLED (<130/80) BP CONTROLLED (<130/80) [facility] Start: 12-02-2021 Influenza vaccination LUNG CANCER SCREENING [facility] Start: 12-02-2021 Screening for malignant neoplasm of lung Lung Cancer Screening [facility] Start: 10-01-2021 End: 12-01-2021 CBC panel - Blood by Automated count CBC Lab Routine Essential hypertension Expected: 10/01/2021, Expires: 12/01/2021 [facility] Work Phone: Comment on above: Expected: 10/01/2021, Expires: 2 Start: 10-01-2021 End: 12-01-2021 Comprehensive metabolic 2000 panel - Serum or Plasma COMP METABOLIC PANEL Lab Routine Essential hypertension Expected: 10/01/2021, Expires: 12/01/2021 [facility] Work Phone: Comment on above: Expected: 10/01/2021, Expires: 2 Start: 10-01-2021 End: 12-01-2021 LIPID PANEL BASIC LIPID PANEL BASIC Lab Routine Essential hypertension Expected: 10/01/2021, Expires: 12/01/2021 [facility] Work Phone: Comment on above: Expected: 10/01/2021, Expires: 2 Start: 10-01-2021 End: 12-01-2021 PSA/PROSTSPECAG SCRN PSA/PROSTSPECAG SCRN Lab Routine Screening for prostate cancer Expected: 10/01/2021, Expires: 12/01/2021 [facility] Work Phone: Comment on above: Expected: 10/01/2021, Expires: 2 Start: 05-15-2019 FECAL OCCULT BLOOD FECAL OCCULT BLOOD [facility] Start: 05-15-2019 Screening for malignant neoplasm of colon Fecal Occult Blood [facility] Start: 09-16-1997 SHINGRIX VACCINE (1 of 2) SHINGRIX VACCINE (1 of 2) [facility] Start: 09-16-1992 COLOGUARD (FIT-DNA) COLOGUARD (FIT-DNA) [facility] Start: 09-16-[address] COLONOGRAPHY [facility] Start: 09-16-1992 Screening for malignant neoplasm of colon [facility] Start: 09-16-1992 SIGMOIDOSCOPY SIGMOIDOSCOPY [facility] Start: 09-16-1965 Anxiety Screening Anxiety Screening [facility] Start: 09-16-1965 Depression Screening Depression Screening [facility] Start: 09-16-1951 Pneumococcal Vaccine: 65+ (1 - PCV) Pneumococcal Vaccine: 65+ (1 - PCV) [facility] Start: 09-16-1951 Pneumococcal Vaccine: 65+ (1 of 2 - PCV) Pneumococcal Vaccine: 65+ (1 of 2 - PCV) [facility] Start: 09-16-1951 PNEUMOCOCCAL: 65+ (1 - PCV) PNEUMOCOCCAL: 65+ (1 - PCV) [facility] Start: 03-18-1946 Covid-19 Vaccine (#1) Covid-19 Vaccine (#1) [facility] CT Neck W contrast IV CTA NECK W IVCON Radiology Routine Hemispheric carotid artery syndrome 12/24/2024 2:10 PM EDT [facility] CTA Head Arteries W contrast IV CTA HEAD W IVCON Radiology Routine Hemispheric carotid artery syndrome 12/24/2024 2:10 PM EDT [facility] Work Phone: ECG COMPLETE ECG COMPLETE ECG 01/28/2025 1:17 PM EDT [facility] End: 12-19-2025 Echocardiography ECHO Cardiology Routine Right carotid bruit Dyspnea on exertion 1 Occurrences starting 12/19/2024 until 12/19/2025 [facility] Work Phone: Comment on above: 1 Occurrences starting 12/19/2024 until 12/19/2025 End: 02-27-2026 NM Heart Perfusion W stress and W radionuclide IV NM CARDIAC PERF STRESS/PHARM Radiology Routine Encounter for screening for cardiovascular disorders Silent myocardial ischemia 1 Occurrences starting 01/28/2025 until 02/27/2026 [facility] Work Phone: Comment on above: 1 Occurrences starting 01/28/2025 until 02/27/2026 NM Heart Perfusion W stress and W radionuclide IV NM CARDIAC PERF STRESS/PHARM Radiology Routine Encounter for screening for cardiovascular disorders Silent myocardial ischemia 01/30/2025 2:47 PM EDT [facility] Work Phone: End: 11-01-2025 Lower extremity artery - bilateral PVR LEG [facility] Vascular Lab Routine Peripheral artery disease 1 Occurrences starting 11/01/2024 until 11/01/2025 [facility] Comment on above: 1 Occurrences starting 11/01/2024 until 11/01/2025 [facility] Immun[facility] Immunization Date Immunization Notes Care Provider Radha kumar 02-14-2019 influenza virus vacc ine, unspecified formulation Renetta Cline DO Work Phone: [facility] Payers Date Payer Category Payer Self-pay 2012 Medicare MEDICARE MEDICAR E A AND B [id number] 2012-Present [phone] [place] [address] Medicare [id number] 2012 Medicare [id number] 2012 Medicare [id number] Unknown [id number] Unknown [id number] Unknown [id number] Social History Date Type Detail Facility Start: 12-25-2014 End: 11-01-2024 Tobacco smoking status NHIS Smokes tobacco daily [facility] History of tobacco use Cigarette Smoker C [facility] Start: 12-25-2014 End: 11-16-2022 Cigarettes smoked current (pack per day) - Reported 1.5 [facility] Work Phone: Start: 12-25-2014 End: 11-01-2024 Tobacco use and exposure Smokeless tobacco non-user [facility] Start: 10-01-2021 End: 12-19-2024 Alcohol intake Current drinker of alcohol (finding) [facility] Start: 02-25-2021 History SDOH Alcohol Comment 4 beer/daily [facility] Start: 04-18-2018 End: 05-10-2023 Tobacco Comment start age: 17 [facility] Start: 1945 Sex Assigned At Not on file C [facility] Start: 09-21-2021 End: 11-12-2021 Exposure to SARS-CoV-2 (event) Not sure [facility] Start: 09-26-2022 End: 11-16-2022 Tobacco use panel [facility] Work Phone: Start: 12-25-2014 Adult Depression Screening Assessment 0 [facility] Work Phone: Has the [employer] or [employer] threatened to shut off services in your home in past 12Mo No [facility] Are you now , , , , never or living with a partner? Never [facility] How often to you hav e a drink containing alcohol? 4 or more times a week [facility] How many standard drinks containing alcohol do you have on a typical day? 7 to 9 [facility] How often do you hav e 6 or more drinks on 1 occasion? Daily or almost daily [facility] Do you feel stress - tense, restless, nervous, or anxious, or unable to sleep at night because your mind is troubled all the time - these days [OSQ] Only a little [facility] (I/We) worried nirav er (my/our) food would run out before (I/we) got money to buy more. Never true [facility] Start: 01-28-2025 End: 02-07-2025 Alcoholic beverage intake Ex-drinker (finding) [facility] Start: 01-28-2025 Alcohol Comment 6 beer/daily [facility] Start: 03-19-2025 End: 04-03-2025 Tobacco smoking status NHIS Current Heavy tobacco smoker [facility] Start: 1945 Sex Assigned At Male [facility] Goals Date Patient Goal Desired Activity /State Personal health goal Functional Status Date Assessment Result Facility 2024 Total score [AUDIT-C] 11 025 1:01 PM EDT Yury Erwin MA [facility] 2024 Humiliation, Afraid, Rape, and Kick questionnaire [HARK] [facility] 01-09-2015 Are you deaf, or do you have serious difficulty hearing Yes 01/09/2015 2:11 PM EDT Roderick Dunham [employer] Yes [facility] 01-09-2015 Are you blind, or do you have serious difficulty seeing, even when wearing glasses No 01/09/2015 2:11 PM EDT Roderick Dunham [employer] No [facility] 01-09-2015 Do you have serious difficulty walking or climbing stairs Yes 01/09/2015 2:11 PM EDT Roderick Dunham Cast Tech Yes [facility] 01-09-2015 Do you have difficul ty dressing or bathing Yes 01/09/2015 2:11 PM EDT Roderick Dunham Cast Tech Yes [facility] 01-09-2015 Because of a physica l, mental, or emotional condition, do you have difficulty doing errands alone such as visiting a physician's office or shopping Yes 01/09/2015 2:11 PM EDT Roderick Dunham Cast Tech Yes [facility] Mental Status Date Assessment Result Facility 01-09-2015 Because of a physica l, mental, or emotional condition, do you have serious difficulty concentrating, remembering, or making decisions No 01/09/2015 2:11 PM EDT Roderick Dunham Cast Tech No [facility] Clinical Notes 12-27-2017 to 03-25-2025 Note Date & Type Note Facility 03-25-2025 Progress note [facility] 03-25-2025 Progress note Note Date/Time March 25, 2025 3:55pm [facility] [address] [place], [place] [address]juan carlos. [address] [place] [address] OFFICE VISIT Date of Service: 03/25/25 MR#: [id number] Acct: [id number] Name: LITA MEYER Rep #: [id number] : [id number] Provider: Dr. Dl Corral MD Age/Sex: 79/M Location: [facility] Status: Signed HPI HPI History of Present Illness Details: Patient is a pleasant 79-year-old white male being seen as a new patient for preop clearance. Patient has a history of severe bilateral carotid disease. CTA showed 80% in the right internal carotid artery 90% in the left internal carotid artery he wasevaluated by Dr. Marion and is plan for surgical intervention on April 21, 2025. After seeing Dr. Marion the patient was confused and did not get his Plavix filled. I went over that with him in detail and sent a new prescription into his pharmacy. The patient had an echocardiogram done January 30 which showed theleft ventricle to be small with mild LVH normal systolic function EF of 65%. Hehad grade 1 diastolic dysfunction the right ventricle was normal in size and function there was systolic anterior motion left ventricular outflow tract gradient 37 mmHg at rest that increased to 71 with Valsalva. There were no significant valvular abnormalities. Compared to a previous echo from 2020 the LVOT gradients had increased. The patient denies any syncope or near syncope. He denies any chest pain denies any significant PND orthopnea. He does report dyspnea on exertion which has been stable over the last 6 months. Patient also had pharmacologic nuclear stress test which showed no evidence of scarred myocardium there was a question of mild less than 10% ischemia in the territory of the left circumflex. The left ventricle is normal in size and function the test was limited by arm and soft tissue attenuation. There was also mild ischemia in the distribution of the LAD but once again there was soft tissue attenuation. The patient lives alone he has an older brother who lives in an extended care facility in the [facility] he has no children he is never been . Intake Vital Signs 03/25/25 15:01 03/25/25 15:10 03/25/25 15:12 Height 5 ft 9 in Weight: 209 lb BMI 30.8 BP 196/91 H 138/74 H 152/76 H Blood Pressure Location Rt brachial Rt brachial Rt brachial Position Sitting Sitting Sitting Respiration 18 Pulse 100 Pulse Source Monitor Pulse Oximetry (%) 93 Oxygen Delivery Method room air Intake Visit Reasons: Pre-Op Cardiovasc. Assessment, FOR LICE, SEE NOTE [employer] Required: No Accompanied by: Self Is patient in pain?: No Allergies No Known Allergies Allergy (Verified 03/25/25 14:58) Medications ?Medication ?Instructions ?Recorded ?Confirmed ?Type aspirin 81 mg tablet 81 mg PO QDAY 02/27/2503/25 History atorvastatin 40 mg tablet (Lipitor) 40 mg PO QDAY 02/1003/25/25 History cilostazol 100 mg tablet 100 mg PO BID 02/27/2503/25 History lisinopril 20 2 tab PO QDAY 02/27/2503/25 History mg-hydrochlorothiazide 12.5 mg tablet metoprolol succinate 25 mg 25 mg PO BID 02/27/2503/25 History tablet,extended release 24 hr clopidogrel 75 mg tablet (Plavix) 75 mg PO DAILY 90 da ys #90 tabs 03/25/25 03/25/25 Rx Ejection fraction %: 65 Have you fallen in the past year?: Yes PFSH Medical History Alcohol dependence Peripheral arterial disease Smoker Sinus tachycardia Mixed hyperlipidemia LVH (left ventricular hypertrophy) Essential (primary) hypertension Surgical History No significant past surgical history Social History Smoking Status: Heavy Smoker (>10/day) Tobacco: How many years used: 56 alcohol intake: current alcohol intake frequency: 3 or more drinks per day Alcohol type: beer details: 7-8 beers daily substance use type: does not use caffeine: Yes ROS Const Const: Negative for fatigue or weakness ENT ENT: Negative for dizziness or balance problems Cardio Chest Pain: No Palpitations: No Edema: None Muscle aches with walking: None Resp Respiratory: Positive for SOB with activity; Negative for SOB at rest or SOB orthopnea\SOB lying down GI GI: Negative nausea, vomiting or heartburn Musc Musc: Negative for muscle weakness or balance problems Neuro Neuro: Negative for dizziness, lightheadedness, near syncope, syncope or weakness Endo Endo: Negative for fatigue Cardiology Exam Const Appearance: cooperative, comfortable, no acute distress and disheveled Nutritional Appearance: obese Patient with a significant resting tremor. Head Head: normal to inspection Eyes General: appearance normal, both eyes and all related structures Neck Neck: normal visual inspection and no JVD Carotids: Negative bruit Chest Chest inspection: normal inspection of the chest Auscultation: Bilateral: Clear to Auscultation Cardio Rate: regular rate Rhythm: regular rhythm Heart sounds: S1 normal, S2 normal and murmur; Negative rub or gallop Murmur: Grade 2/6, harsh, mid systolic, LLSB and RLSB GI GI: obese Neuro General: patient alert and patient oriented x3 Extremities Lower Extremity Edema: None: Bilateral Psych Psychological: normal affect Supplemental Info Supplemental Information Past Visits: Cardiology Visit Today Assessment and Plan Assessment and Plan (1) Pre-op evaluation: Status: Acute Plan: Patient denies any anginal type symptoms. He does have chronic dyspnea on exertion which is unchanged with his walking pattern over the last 6 months. Hedenies any PND orthopnea denies any lower extremity edema. He has never had a cardiac event to his knowledge. His ECG done January 28, 2025 showed sinus tachycardia to 108 bpm possible left atrial enlargement and was read is abnormal. The patient subsequently had pharmacologic nuclear stress test which showed lessthan 10% ischemia in the distribution of the circumflex and LAD. He denies any anginal type symptoms he remains active. The patient also had an echocardiogram which showed LVH and a small ventricular cavity with a left ventricular outflow tract gradient at rest was 37 mmHg and with Valsalva increased to 71. The patient has severe bilateral carotid artery disease by carotid CT angiography. He is scheduled for surgical intervention on the left carotid by Dr. Marion for April 21, 2025. I did go over with the patient in detail the surgical and anesthesia risk. Given the minimal amount of ischemia noted on the stress test in the face of left ventricular hypertrophy I do not feel the patient will require invasive coronary evaluation. The patient does have left ventricular outflow tract gradient and anesthesia needs to be careful with his blood pressure perioperatively as his gradient willincrease if he becomes hypotensive. He will need to be well-hydrated and make certain should his blood pressure go down interoperatively that a pure alpha agonist to be utilized to maintain his blood pressure. From a cardiovascular standpoint the patient should be able to tolerate surgicalintervention on his carotids. I did go over with him in detail the risk of anesthesia and surgical intervention. From a cardiovascular standpoint my opinion is that the risk of delaying his surgical intervention outweighs the benefit to be gained from any further testing with the current testing we have at hand. (2) Bilateral carotid artery stenosis: Status: Chronic Plan: Patient's bilateral carotid disease is being managed by Dr. Marion. He did not realize he was supposed to start Plavix we reordered that through his pharmacy for him to start it today. He is to stay on his aspirin. (3) Smoker: Status: Acute Plan: The patient continues to smoke this should be addressed aggressively if at all possible he should do his best to stop smoking. (4) Mixed hyperlipidemia: Status: Acute Plan: Patient's lipids are managed through the primary service last lipids that I haveavailable are from February 2024 total cholesterol was 160 HDL 66, LDL 76, and triglycerides 92. This is on atorvastatin 40 mg daily and represents adequate control at this point in time. Given his current atherosclerotic disease consideration may be given of the increasing his atorvastatin to 80 mg or alternatively switching him to more intensive therapy with rosuvastatin. I willdefer this to the primary service for long-term management. (5) LVH (left ventricular hypertrophy): Status: Acute Plan: Patient has a history of LVH and a left ventricular outflow tract gradient of 37mmHg at rest and 71 mm with Valsalva on echocardiogram done January 30, 2025. This needs to be managed carefully and avoid intraoperative hypotension as this will increase his left ventricular outflow tract gradient and decrease his cardiac output. Treatment for his hypotension would be volume replacement and a pure alpha agentif needed. Need to avoid inotropic agents as this would increase his LVOT gradient. (6) Essential (primary) hypertension: Status: Acute Plan: Patient's blood pressure was 196/91 initially in the office retaken at 138/74 and again at 152/76. The patient is on a combination of metoprolol and lisinopril hydrochlorothiazide. His heart rate is at 100 bpm it would probably be a good idea to increase his metoprolol to 50 mg twice daily. I would recommend not adding additional diuretic therapy as he will need the volume to minimize his left ventricular outflow tract gradient. The gradient will also bedecreased by slowing his heart rate to give greater diastolic filling time. I will defer changes in his antihypertensive medical regiment to the primary service. (7) Acquired left ventricular outflow tract obstruction: Status: Acute Plan: Patient's gradients were measured at 37 mm at rest and 71 mm with Valsalva January 2025. This appears to be related to LVH and a small left ventricular cavity. Please see details of #6 and #1 problems above for recommendations. Medications: Refilled clopidogrel (Plavix) 75 mg PO DAILY 90 tabs 0RF 90 days Plan 1. From a cardiovascular standpoint I feel the patient can proceed with surgical intervention on his carotid disease. 2. The patient is at risk but given his carotid anatomy and his lack of any cardiovascular symptoms I would recommend that he go ahead and proceed. 3. The patient be reevaluated in our office in 3 months and as needed. Plan Details Additional Comments: This note was generated with Plumbeeation software. It may contain incorrectwords, spelling, and punctuation that were not noted in checking the note beforesigning. Follow Up: 3 Months (With RENARD and as needed) Coding Level of Care Code Off vis,new,level 4 Diagnoses Pre-op evaluation Z01.818 Bilateral carotid artery stenosis I65.23 Smoker F17.200 Mixed hyperlipidemia E78.2 LVH (left ventricular hypertrophy) I51.7 Essential (primary) hypertension I10 Acquired left ventricular outflow tract obstruction I51.89 Coding Level of Care Code Off vis,new,level 4 Diagnoses Pre-op evaluation Z01.818 Bilateral carotid artery stenosis I65.23 Smoker F17.200 Mixed hyperlipidemia E78.2 LVH (left ventricular hypertrophy) I51.7 Essential (primary) hypertension I10 Acquired left ventricular outflow tract obstruction I51.89 Clinical Quality Measures Falls Risk Screening/Assistive Devices Have you fallen in the past year?: Yes Cardiac Ejection fraction %: 65 03/25/25 1611 <Electronically signed by Kim flannery MD> Date _ Kim Corral MD Cosigner Signature: Date (if applicable) CC: Dr. Rojas Marion MD; Dr. Renetta Cline DO ~ [facility] Work Phone: 1(341) 295-140810-08-2025 Evaluation note* Diagnosis Onset Date Resolution Status Admit Date Bilateral carotid artery stenosis chronic March 19 2:44pm Acquired left ventricular outflow tract obstruction acute Octobe r 2024 2:43pm Essential (primary) hypertension acute March 25 2:43pm LVH (left ventricular hypertrophy) acute March 25 2:43pm Mixed hyperlipidemia acute Octo jagdish 2024 2:43pm Pre-op evaluation acute March 25, 2025 2:43pm Smoker acute March 25, 2025 2:43pm Bilateral carotid artery stenosis chronic March 25 2:43pm [facility] Work Phone: 1(719) 918-752109-05-2025 Telephone encounter Note* Telephone Encounter - Sandi Soto - 02/14/2025 10:41 AM EDT Mikala from [facility] received a referral for this patient to be seen in their offices. Mikala requesting recent testing reports to be faxed to the office at [phone]. Reports faxed via [employer]. [facility]09-05-2025 Miscellaneous Notes* Telephone Encounter - Sandi Soto - 02/14/2025 10:41 AM EDT Mikala from [facility] received a referral for this patient to be seen in their offices. Mikala requesting recent testing reports to be faxed to the office at [phone]. Reports faxed via [employer]. documented in this encounterCh[facility] History of Present illness Narrative* Anthony Egan MD - 02/07/2025 1:00 PM EDT Images from the original note were not included. [facility] ESTABLISHED CLINIC VISIT Lita Meyer [id number] HISTORY OF PRESENT ILLNESS: Mr. Meyer is a 79 year old male seen in clinic today for follow up for bilateral ICA stenosis. CT imaging showing 80% right ICA stenosis with distal decrease in caliber on the right as well as greater than 90% left ICA stenosis. Moderate stenosis of the origin of the left subclavian, right vertebral V3 V4 occlusion, narrowing of the left M2 branch, and occlusion of the intracranial right vertebral artery. He remains asymptomatic. He denies any chest pain or tightness, pressure or palpitations. No lightheadedness or dizziness with activity. He was seen by Dr. Rodriguez with cardiology and underwenta stress test which he reviewed and determined there was no significant ischemia of the LAD or leftcircumflex. He also evaluated the patient's dyspnea on exertion finding it related to his COPD and smoking. BP taken in both arms in office - L 137/87 R 208/93 Vascular health status: Antiplatelet / Anticoagulation: ASA 81 mg, pletal 100 mg Statin or PCSK9i: atorvastatin Vascular screening and surveillance: AAA - None 2018 CT abd/pel PAD - Following Carotid stenosis - Carotid duplex > 70% stenosis bilaterally MEDICATIONS: metoprolol succinate ER (TOPROL XL) 25 mg 24 hr tablet Take 1 tablet by mouth two times a day. cilostazol (PLETAL) 100 mg tablet Take 1 tablet by mouth two times a day. atorvastatin (LIPITOR) 40 mg tablet Take 1 tablet by mouth once daily. lisinopril-hydroCHLOROthiazide (ZESTORETIC) 20-12.5 mg per tablet TAKE 2 TABLETS BY MOUTH ONCE DAILY. aspirin, enteric coated (ADULT LOW DOSE ASPIRIN) 81 mg EC tablet Take 1 tablet by mouth once daily. SOCIAL HISTORY: SOCIAL HISTORY[1] PAST MEDICAL HISTORY: PAST MEDICAL HISTORY Diagnosis Date Essential hypertension LVH (left ventricular hypertrophy) Mixed hyperlipidemia Peripheral arterial disease Sinus tachycardia Smoker PAST SURGICAL HISTORY: PAST SURGICAL HISTORY Procedure Laterality Date NONE ALLERGIES: ALLERGIES No Known Allergies Targeted ROS Comprehensive system review of systems did not reveal any pertinent positives or negatives except per HPI PHYSICAL EXAM: Focused Physical Exam: BP 137/83 Pulse 116 SpO2 95% General: WDWN in NAD Pulmonary: Non-labored on RA Coronary: Regular rate, no AMANDA or JVD, R carotid bruit Extremities: Normal range of motion DIAGNOSTIC TESTS REVIEWED FOR TODAY'S VISIT: Most recent labs and imaging results IMAGING RESULTS: 12/24/2024 CTA neck 1. 80% right internal carotid artery stenosis and 90% left internal carotid artery stenosis with some distal decreasing caliber of the left internal carotid artery noted 2. Moderate narrowing of the common carotid artery bilaterally 3. 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 Irregular high-grade stenosis of the cervical portion of the right vertebral artery in the V1 segment with irregular narrowing throughout and with occlusion of the vessel at the V3/V4 junction 5. Moderate narrowing of left M2 branch 6. Occluded intracranial right vertebral artery 01/30/2025 nuclear medicine cardiac stress test CONCLUSIONS: 1. SPECT Perfusion Study: Abnormal. 2. No evidence of scarred myocardium. 3. There is mild (<10%) ischemia in the territory of the LCX. 4. Left ventricle is normal in size. The left ventricle systolic function is normal. 5. Right ventricle is normal in size. The right ventricle systolic function is normal. 6. This is an intermediate risk scan. Probable LAD and Lcx ischemia in test limited significantly by arm and soft tissue attenuation. 7. There is mild (<10%) ischemia in the territory of the LAD. Gated Stress IR:3D LVEF % 65 12/10/2024 PVR leg bilateral RIGHT SIDE Resting right ankle brachial index: 0.66 Abnormal ankle brachial index at rest diagnostic of peripheral artery disease. Right ankle: Moderate disease at rest. LEFT SIDE Resting left ankle brachial index: 0.55 Abnormal ankle brachial index at rest diagnostic of peripheral artery disease. Left ankle: Moderate disease at rest. ASSESSMENT AND PLAN: Lita Meyer is a 79 year old male seen in follow up for severe asymptomatic bilateral carotid stenosis as well as asymptomatic L SCA stenosis. I reviewed the options for carotid revascularization with Mr. Meyer and in a shared decision-making process, he has elected to proceed with a left CEA. The technical aspects of CEA as well as the benefits (long-term stroke risk reduction) were discussedin detail. Risks including but not limited to perioperative stroke, heart attack, , bleeding, infection and nerve injury were explained. We also discussed medical management and continued observation with the inherent risk of stroke associated with this approach. Mr. Meyer demonstrated a clearunderstanding of our discussion and agrees to proceed with CEA however patient does not wish to proceed with surgery at [facility] where I perform these surgeries. We discussed a referral to my other partners in the region however he has issues with driving and all locations are too far from home. We discussed alternative transportation - family member, [employer] ride, etc. He did not wish to pursue these options. He was comfortable with pursuing care in [place] due to familiarity with thearea. I provided a referral to vascular surgery in [place] with Dr. Marion. We discussed the options for management and all questions answered, Mr. Meyer reflected understanding and agreement to the plan as outlined below. Recommend ongoing optimal medical management BP goal <130/80 with control, for accurate BP need to use R arm Optimal mgmt of Diabetes when present to HgBA1c to < 7 Lipid goal LDL < 70 with yearly lipid checks and high dose statin when > 70 or PSK9 inhibitorif statin intolerant Recommend daily ASA 81 mg or Plavix Smoking avoidance and cessation when smoking Anthony Egan MD Vascular Surgery Staff Medical Decision Making: Problems: High: Illness/injury w/ threat to life/body function Data: Unique test result(s) reviewed: 2 Assessment requiring an independent historian(s) Risk: Moderate: Drug management Medical Decision Making Level: 4 - Moderate This note may have been partially generated using the flatev voice recognition system as well as artificial intelligence technology. While every effort was made to correct voice recognition errors, kindly be aware that some errors may occasionally occur. [1] Social History Tobacco Use Smoking status: Every Day Current packs/day: 1.50 Average packs/day: 1.5 packs/day for 56.0 years (84.0 ttl pk-yrs) Types: Cigarettes Smokeless tobacco: Never Tobacco comments: start age: 17 Vaping Use Vaping status: Never Used Substance Use Topics Alcohol use: Not Currently Alcohol/week: 42.0 standard drinks of alcohol Types: 42 Cans of beer per week Comment: 6 beer/daily Drug use: No documented in this encounterCh[facility]08-29-[facility]25 NoteHNO ID: [id number] Author: ANTHONY EGAN MD Service: ? Author Type: Physician Type: Progress Notes Filed: 02/07/2025 13:42 Note Text: [facility] EST[facility]ISHED CLINIC VISIT Lita Meyer [id number] HISTORY OF PRESENT ILLNESS: Mr. Meyer is a 79 year old male seen in clinic today for follow up for bilateral ICA stenosis. CT imaging showing 80% right ICA stenosis with distal decrease in caliber on the right as well as greater than 90% left ICA stenosis. Moderate stenosis of the origin of the left subclavian, right vertebral V3 V4 occlusion, narrowing of the left M2 branch, and occlusion of the intracranial right vertebral artery. He remains asymptomatic. He denies any chest pain or tightness, pressure or palpitations. No lightheadedness or dizziness with activity. He was seen by Dr. Rodriguez with cardiology and underwent a stress test which he reviewed and determined there was no significant ischemia of the LAD or left circumflex. He also evaluated the patient's dyspnea on exertion finding it related to his COPD and smoking. BP taken in both arms in office - L 137/87 R 208/93 Vascular health status: Antiplatelet / Anticoagulation: ASA 81 mg, pletal 100 mg Statin or PCSK9i: atorvastatin Vascular screening and surveillance: AAA - None 2018 CT abd/pel PAD - Following Carotid stenosis - Carotid duplex > 70% stenosis bilaterally MEDICATIONS: metoprolol succinate ER (TOPROL XL) 25 mg 24 hr tablet Take 1 tablet by mouth two times a day. cilostazol (PLETAL) 100 mg tablet Take 1 tablet by mouth two times a day. atorvastatin (LIPITOR) 40 mg tablet Take 1 tablet by mouth once daily. lisinopril-hydroCHLOROthiazide (ZESTORETIC) 20-12.5 mg per tablet TAKE 2 TABLETS BY MOUTH ONCE DAILY. aspirin, enteric coated (ADULT LOW DOSE ASPIRIN) 81 mg EC tablet Take 1 tablet by mouth once daily. SOCIAL HISTORY: SOCIAL HISTORY[1] PAST MEDICAL HISTORY: PAST MEDICAL HISTORY Diagnosis Date Essential hypertension LVH (left ventricular hypertrophy) Mixed hyperlipidemia Peripheral arterial disease Sinus tachycardia Smoker PAST SURGICAL HISTORY: PAST SURGICAL HISTORY Procedure Laterality Date NONE ALLERGIES: ALLERGIES No Known Allergies Targeted ROS Comprehensive system review of systems did not reveal any pertinent positives or negatives except per HPI PHYSICAL EXAM: Focused Physical Exam: BP 137/83 Pulse 116 SpO2 95% General: WDWN in NAD Pulmonary: Non-labored on RA Coronary: Regular rate, no AMANDA or JVD, R carotid bruit Extremities: Normal range of motion DIAGNOSTIC TESTS REVIEWED FOR TODAY'S VISIT: Most recent labs and imaging results IMAGING RESULTS: 12/24/2024 CTA neck 1. 80% right internal carotid artery stenosis and 90% left internal carotid artery stenosis with some distal decreasing caliber of the left internal carotid artery noted 2. Moderate narrowing of the common carotid artery bilaterally 3. 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 Irregular high-grade stenosis of the cervical portion of the right vertebral artery in the V1 segment with irregular narrowing throughout and with occlusion of the vessel at the V3/V4 junction 5. Moderate narrowing of left M2 branch 6. Occluded intracranial right vertebral artery 01/30/2025 nuclear medicine cardiac stress test CONCLUSIONS: 1. SPECT Perfusion Study: Abnormal. 2. No evidence of scarred myocardium. 3. There is mild (<10%) ischemia in the territory of the LCX. 4. Left ventricle is normal in size. The left ventricle systolic function is normal. 5. Right ventricle is normal in size. The right ventricle systolic function is normal. 6. This is an intermediate risk scan. Probable LAD and Lcx ischemia in test limited significantly by arm and soft tissue attenuation. 7. There is mild (<10%) ischemia in the territory of the LAD. Gated Stress IR:3D LVEF % 65 12/10/2024 PVR leg bilateral RIGHT SIDE Resting right ankle brachial index: 0.66 Abnormal ankle brachial index at rest diagnostic of peripheral artery disease. Right ankle: Moderate disease at rest. LEFT SIDE Resting left ankle brachial index: 0.55 Abnormal ankle brachial index at rest diagnostic of peripheral artery disease. Left ankle: Moderate disease at rest. ASSESSMENT AND PLAN: Lita Meyer is a 79 year old male seen in follow up for severe asymptomatic bilateral carotid stenosis as well as asymptomatic L SCA stenosis. I reviewed the options for carotid revascularization with Mr. Meyer and in a shared decision-making process, he has elected to proceed with a left CEA. The technical aspects of CEA as well as the benefits (long-term stroke risk reduction) were discussed in detail. Risks including but not limited to perioperative stroke, heart attack, , bleeding, infection and nerve injury were explained. We also discussed medical management and gonzalo (more content not included)...[facility]08-25-2025 Telephone encounter Note* Telephone Encounter - Americo Cano RN - 02/03/2025 3:27 PM EDT Called pt spoke to Devan Cook Pt verbalizes understanding of message. She wrote down [facility]08-25-2025 Miscellaneous Notes* Telephone Encounter - Americo Cano RN - 02/03/2025 3:27 PM EDT Called pt spoke to Devan Cook Pt verbalizes understanding of message. She wrote down * Telephone Encounter - Jaz Yuo RN - 02/03/2025 10:26 AM EDT Images from the original note were not included. [facility]NA: 01/28/2025- Juan Miguel Mathew MD Result Note Nuclear stress test showed artifact / scarring but no significant ischemia of the heart muscle. Continue present medical therapy. NM CARDIAC PERF STRESS/PHARM documented [facility] Telephone encounter Note * Telephone Encounter - Jaz You RN - 02/03/2025 10:26 AM EDT Images from the original note were not included. [facility]NA: 01/28/2025- Juan Miguel Mathew MD Result Note Nuclear stress test showed artifact / scarring but no significant ischemia of the heart muscle. Continue present medical therapy. NM CARDIAC PERF STRESS/PHARM [facility]08-21-2025 History of Present illness Narrative* Kim Boyer, ARTHUR - 01/30/2025 12:45 PM EDT RADIOLOGY SERVICE PROGRESS NOTE SERVICE DATE: 01/30/2025 SERVICE TIME: 1:00 PM PATIENT IDENTITY VERIFICATION COMPLETED USING TWO (2) STANDARD IDENTIFIERS: Name and Date of confirmed by patient verbally and Name and Date of confirmed by identification band FALL SCREENING: Has the patient had 2 falls in the last year or 1 fall with injury or currently using an Ambulatory Assistive Device (Walker, Cane, Wheelchair, Crutches, etc.)? No PATIENT GENDER DATA: .male ALLERGIES: Reviewed and unchanged MEDICATIONS REVIEWED: Not applicable PATIENT RELEVANT IMPLANT DATA REVIEWED: Not Applicable PATIENT PRESENTS WITH AN IMPLANTABLE OR ATTACHED [employer] INSPECTOR: No CREATININE: Creatinine Date Value Ref Range Status 12/24/2024 0.63 (L) 0.73 - 1.22 mg/dL Final 02/17/2024 0.64 (L) 0.73 - 1.22 mg/dL Final 09/29/2022 0.67 (L) 0.73 - 1.22 mg/dL Final Estimated Glomerular Filtration Rate Date Value Ref Range Status 12/24/2024 98 >=60 mL/min/1.73m Final Comment: Estimated Glomerular Filtration Rate (eGFR) is calculated using the 2020 CKD-EPI creatinine equation. This equation utilizes serum creatinine, sex, and age as parameters. The creatinine assay has traceable calibration to isotope dilution- mass spectrometry. Refer to KDIGO guidelines for clinical interpretation. In patients with unstable renal function, e.g. those with acute kidney injury, the eGFRmay not accurately reflect actual GFR. eGFR- Date Value Ref Range Status 09/07/2020 >60 Final P.O.C.T. RESULTS: N/A January 30, [address] PERFORMED: No IV SITE: Ambulatory: A peripheral IV was started in the Right antecubital site with a Angio cath: 22 gauge. POST EXAM PIV STATUS: Discontinued PROCEDURE TYPE: MD Stress: 12.7mCi [id number] was administered IV for Rest Imaging at 12:52 by . 33.9 mCi [id number] was administered IV for Stress Imaging at 13:56 by . PATIENT DISCHARGED TO: Ambulatory patient, left MD department area. Is this a therapy: No A Diagnostic radioactive procedure has taken place, with no further precautions necessary other than routine body substance precautions. More information regarding radiation safety can be found usingthis link: [email or web address] SIGNATURE: ARTHUR Tinajero PATIENT NAME: Lita Meyer DATE: January 30, 2025 TIME: 1:00 PM PAGER/CONTACT #: documented in this encounterCh[facility]25 NoteHNO ID: [id number] Author: KIM BOYER CT Service: Nuclear Medicine Author Type: Technologist Type: Progress Notes Filed: 01/30/2025 14:26 Note Text: RADIOLOGY SERVICE PROGRESS NOTE SERVICE DATE: 01/30/2025 SERVICE TIME: 1:00 PM PATIENT IDENTITY VERIFICATION COMPLETED USING TWO (2) STANDARD IDENTIFIERS: Name and Date of confirmed by patient verbally and Name and Date of confirmed by identification band FALL SCREENING: Has the patient had 2 falls in the last year or 1 fall with injury or currently using an Ambulatory Assistive Device (Walker, Cane, Wheelchair, Crutches, etc.)? No PATIENT GENDER DATA: .male ALLERGIES: Reviewed and unchanged MEDICATIONS REVIEWED: Not applicable PATIENT RELEVANT IMPLANT DATA REVIEWED: Not Applicable PATIENT PRESENTS WITH AN IMPLANTABLE OR ATTACHED [employer] INSPECTOR: No CREATININE: Creatinine Date Value Ref Range Status 12/24/2024 0.63 (L) 0.73 - 1.22 mg/dL Final 02/17/2024 0.64 (L) 0.73 - 1.22 mg/dL Final 09/29/2022 0.67 (L) 0.73 - 1.22 mg/dL Final Estimated Glomerular Filtration Rate Date Value Ref Range Status 12/24/2024 98 >=60 mL/min/1.73m? Final Comment: Estimated Glomerular Filtration Rate (eGFR) is calculated using the 2020 CKD-EPI creatinine equation. This equation utilizes serum creatinine, sex, and age as parameters. The creatinine assay has traceable calibration to isotope dilution-mass spectrometry. Refer to KDIGO guidelines for clinical interpretation. In patients with unstable renal function, e.g. those with acute kidney injury, the eGFR may not accurately reflect actual GFR. eGFR- Date Value Ref Range Status 09/07/2020 >60 Final P.O.C.T. RESULTS: N/A January 30, [address] PERFORMED: No IV SITE: Ambulatory: A peripheral IV was started in the Right antecubital site with a Angio cath: 22 gauge. POST EXAM PIV STATUS: Discontinued PROCEDURE TYPE: NM Stress: 12.7mCi [id number] was administered IV for Rest Imaging at 12:52 by . 33.9 mCi [id number] was administered IV for Stress Imaging at 13:56 by . PATIENT DISCHARGED TO: Ambulatory patient, left MD department area. Is this a therapy: No A Diagnostic radioactive procedure has taken place, with no further precautions necessary other than routine body substance precautions. More information regarding radiation safety can be found using this link: [email or web address] SIGNATURE: ARTHUR Tinajero PATIENT NAME: Lita Meyer DATE: January 30, 2025 TIME: 1:00 PM [id number] Instructions* Patient Instructions* Juan Miguel Rodriguez MD - 01/28/2025 1:48 PM EDT We discussed your carotid artery blockage and upcoming surgery: - You have significant blockage (80-90%) in your carotid arteries, which increases your risk of stroke. This is likely due to your history of smoking, high cholesterol, and high blood pressure. - Your surgery to clean out the carotid arteries is scheduled for Monday at [facility]. The procedure will involve making an incision in your neck and is expected to take 2-3 hours. You will be under anesthesia during the surgery. - Recovery is expected to be quick, with discharge the next day (Monday) and full recovery within2-3 days. We discussed your heart health and the need for a stress test: - Due to the risk of heart blockage, I recommend a chemical stress test before your surgery to ensure your heart is healthy enough for the procedure. This test will help us identify any potential heart issues that could increase your risk of a heart attack during surgery. - I will try to schedule the stress test for tomorrow (Monday). If the results are normal, you can proceed with your surgery as planned. If the results show significant heart issues, we may need to address those first before proceeding with the carotid surgery. We discussed your high blood pressure: - Your blood pressure is currently high (160/105). To better control it, I am increasing your metoprolol dose to 1 full tablet in the morning and 1 full tablet at night, starting today. This is critical to avoid cancellation of your surgery. - A new prescription for metoprolol has been sent to your pharmacy. - From now on, always have your blood pressure checked on your right arm, as there is blockage on the left side. We discussed your alcohol consumption: - Drinking 6 beers a day is contributing to your high blood pressure. Please reduce your alcohol intake to no more than 1-2 beers per day. We discussed your smoking: - Smoking is a major factor contributing to the blockages in your carotid arteries and increasing your risk of heart attack and stroke. I strongly encourage you to quit smoking to improve your overall health and reduce these risks. We discussed your diet: - Limit your salt intake, as high salt consumption can worsen your blood pressure. Next steps: - Start taking 1 full tablet of metoprolol in the morning and 1 full tablet at night immediately. - Reduce your alcohol intake to no more than 1-2 beers per day. - Avoid smoking to reduce your risk of further blockages and complications. - Attend the chemical stress test (tentatively scheduled for tomorrow) to assess your heart health before surgery. - Proceed with your carotid artery surgery on Monday if the stress test results are normal. Please contact our office if you have any questions or concerns before your surgery. documented in this encounterCh[facility]08-[facility]-2025 NoteHNO ID: [id number] Author: JUAN MIGUEL RODRIGUEZ MD Service: ? Author Type: Physician Type: Progress Notes Filed: 01/31/2025 16:23 Note Text: [facility] Department of Cardiovascular Medicine SECTION OF REGIONAL CARDIOLOGY January 28, 2025 OUTPATIENT VISIT TYPE Consult Consultation requested by Dr Anthony Egan for an opinion regarding preoperative clearance for carotid disease and CAD, HTN, HLD. A copy of this consultation note will be provided to the requesting physician by way of shared Medical record. HISTORY OF PRESENT ILLNESS: Mr. Meyer is 79-year-old male with a history of hypertension, hypercholesterolemia, and significant carotid artery stenosis, presenting for evaluation prior to scheduled carotid endarterectomy. The patient reports dyspnea on exertion, particularly when attempting to run or walk quickly for a block. He also experiences discomfort in the gluteal region described as a non-severe pain when walking long distances. He denies any chest tightness, heaviness, pressure, palpitations, tachycardia, dizziness, or lightheadedness during these activities. He also denies any issues when ascending stairs. He denies any leg edema. He needs to be scheduled for carotid endarterectomy at [facility] to address bilateral carotid artery stenosis, with 80-90% occlusion. He reports that the procedure will involve direct surgical access to the neck arteries. He has a history of minimal physical activity over the past 4-5 years, though he previously walked 2-3 miles daily. He denies any abdominal pain, sore throat, or back pain. He has an umbilical hernia, which is asymptomatic. He has a 60-year history of smoking 1.5 packs per day and consumes approximately 6 beers daily. He drinks 72 ounces of water daily and reports minimal salt intake. He denies any history of diabetes mellitus. He is currently taking metoprolol, half a tablet by mouth every afternoon. ms of chest pain. Patient has mild exertional shortness of breath. Dizziness - No Palpitations - No Leg swelling - No Fatigue - No Snoring - No Sleep apnea - No Patient drinks one or 2 cups of coffee or caffeine containing beverages per day Patient does not smoke tobacco products. Patient drinks socially / uses small amount of alcohol periodically Patient denies recreational drug use / abuse. SOCIAL HISTORY[1] FAMILY HISTORY Problem Relation Age of Onset Hypertension Mother other (blood clots) Mother Stroke Father PAST MEDICAL HISTORY Diagnosis Date Essential hypertension LVH (left ventricular hypertrophy) Mixed hyperlipidemia Peripheral arterial disease Sinus tachycardia Smoker PAST SURGICAL HISTORY Procedure Laterality Date NONE REVIEW OF SYSTEMS: SYSTEMIC: No fever, chills, or change in weight or appetite HEENT: No recent change in vision or hearing. Respiratory: No hemoptysis, cough. CARDIOVASCULAR: See HPI. GI: No recent nausea, vomiting or diarrhea. : No recent hematuria or dysuria. SKIN: No recent itching or eruption. PSYCH: No recent active anxiety or depression. HEMATOLOGY/ONCOLOGY: No recent diagnosis of bleeding or cancer. ENDOCRINE: No recent polyuria or heat intolerance. NEURO: No recent TIA, stroke or seizures. MSK / RHEUMATOLOGY: No recent active connective tissue disease. Rest of the review of system is unremarkable. ALLERGIES Not on File CURRENT MEDICATIONS: cilostazol (PLETAL) 100 mg tablet Take 1 tablet by mouth two times a day. atorvastatin (LIPITOR) 40 mg tablet Take 1 tablet by mouth once daily. lisinopril-hydroCHLOROthiazide (ZESTORETIC) 20-12.5 mg per tablet TAKE 2 TABLETS BY MOUTH ONCE DAILY. metoprolol succinate ER (TOPROL XL) 25 mg 24 hr tablet TAKE 1/2 (ONE-HALF) OF A TABLET BY MOUTH every afternoon. aspirin, enteric coated (ADULT LOW DOSE ASPIRIN) 81 mg EC tablet Take 1 tablet by mouth once daily. iv contrast (will be provided with radiology test) CTA Head/Neck W No IV access, insert saline lock prior to the sedation, infusion, injection for imaging exam. Discontinue saline lock post exam. If Pt. has a central line or IVAD, may access for administration according to line specific nursing protocol. Once exam is complete flush line and de-access according to line specific nursing protocol in the CT contrast administration guidelines link. (Patient not taking: Reported on 01/28/2025) PHYSICAL EXAM: BP 138/72 (BP Position: Sitting) Pulse 108 Ht 174 cm (5' 8.5) Wt 95.4 kg (210 lb 5.1 oz) SpO2 95% BMI 31.51 kg/m? Body mass index is 31.51 kg/m?. Blood pressure in the right brachial artery was 165/105 mmHg. Last 2 Encounter Wt Readings: Date: Wt: 01/28/2025 95.4 kg (210 lb 5.1 oz) 2024 95.7 kg (211 lb) Awake, alert, oriented times 3. Patient is not in acute respiratory distress. SKIN: No petechial rash or ecchymosis noted. Head : Normocephalic. Face is symmetrica (more content not included)...[facility]08-19-2025 History of Present illness Narrative* Juan Miguel Rodriguez MD - 01/28/2025 1:24 PM EDT Images from the original note were not included. [facility] Department of Cardiovascular Medicine SECTION OF REGIONAL CARDIOLOGY January 28, 2025 OUTPATIENT VISIT TYPE Consult Consultation requested by Dr Anthony Egan for an opinion regarding preoperative clearance for carotid disease and CAD, HTN, HLD. A copy of this consultation note will be provided to the requesting physician by way of shared Medical record. HISTORY OF PRESENT ILLNESS: Mr. Meyer is 79-year-old male with a history of hypertension, hypercholesterolemia, and significantcarotid artery stenosis, presenting for evaluation prior to scheduled carotid endarterectomy. The patient reports dyspnea on exertion, particularly when attempting to run or walk quickly for a block. He also experiences discomfort in the gluteal region described as a non-severe pain when walking long distances. He denies any chest tightness, heaviness, pressure, palpitations, tachycardia, dizziness, or lightheadedness during these activities. He also denies any issues when ascending stairs. He denies any leg edema. He needs to be scheduled for carotid endarterectomy at [facility] to address bilateral carotidartery stenosis, with 80-90% occlusion. He reports that the procedure will involve direct surgical access to the neck arteries. He has a history of minimal physical activity over the past 4-5 years, though he previously walked 2-3 miles daily. He denies any abdominal pain, sore throat, or back pain. He has an umbilical hernia, which is asymptomatic. He has a 60-year history of smoking 1.5 packs per day and consumes approximately 6 beers daily. He drinks 72 ounces of water daily and reports minimal salt intake. He denies any history of diabetes mellitus. He is currently taking metoprolol, half a tablet by mouth every afternoon. ms of chest pain. Patient has mild exertional shortness of breath. Dizziness - No Palpitations - No Leg swelling - No Fatigue - No Snoring - No Sleep apnea - No Patient drinks one or 2 cups of coffee or caffeine containing beverages per day Patient does not smoke tobacco products. Patient drinks socially / uses small amount of alcohol periodically Patient denies recreational drug use / abuse. SOCIAL HISTORY[1] FAMILY HISTORY Problem Relation Age of Onset Hypertension Mother other (blood clots) Mother Stroke Father PAST MEDICAL HISTORY Diagnosis Date Essential hypertension LVH (left ventricular hypertrophy) Mixed hyperlipidemia Peripheral arterial disease Sinus tachycardia Smoker PAST SURGICAL HISTORY Procedure Laterality Date NONE REVIEW OF SYSTEMS: SYSTEMIC: No fever, chills, or change in weight or appetite HEENT: No recent change in vision or hearing. Respiratory: No hemoptysis, cough. CARDIOVASCULAR: See HPI. GI: No recent nausea, vomiting or diarrhea. : No recent hematuria or dysuria. SKIN: No recent itching or eruption. PSYCH: No recent active anxiety or depression. HEMATOLOGY/ONCOLOGY: No recent diagnosis of bleeding or cancer. ENDOCRINE: No recent polyuria or heat intolerance. NEURO: No recent TIA, stroke or seizures. MSK / RHEUMATOLOGY: No recent active connective tissue disease. Rest of the review of system is unremarkable. ALLERGIES Not on File CURRENT MEDICATIONS: cilostazol (PLETAL) 100 mg tablet Take 1 tablet by mouth two times a day. atorvastatin (LIPITOR) 40 mg tablet Take 1 tablet by mouth once daily. lisinopril-hydroCHLOROthiazide (ZESTORETIC) 20-12.5 mg per tablet TAKE 2 TABLETS BY MOUTH ONCE DAILY. metoprolol succinate ER (TOPROL XL) 25 mg 24 hr tablet TAKE 1/2 (ONE-HALF) OF A TABLET BY MOUTH every afternoon. aspirin, enteric coated (ADULT LOW DOSE ASPIRIN) 81 mg EC tablet Take 1 tablet by mouth once daily. iv contrast (will be provided with radiology test) CTA Head/Neck W No IV access, insert saline lockprior to the sedation, infusion, injection for imaging exam. Discontinue saline lock post exam. If Pt. has a central line or IVAD, may access for administration according to line specific nursing protocol. Once exam is complete flush line and de-access according to line specific nursing protocol in the CT contrast administration guidelines link. (Patient not taking: Reported on 01/28/2025) PHYSICAL EXAM: BP 138/72 (BP Position: Sitting) Pulse 108 Ht 174 cm (5' 8.5) Wt 95.4 kg (210 lb 5.1 oz) SpO2 95% BMI 31.51 kg/m Body mass index is 31.51 kg/m . Blood pressure in the right brachial arterywas 165/105 mmHg. Last 2 Encounter Wt Readings: Date: Wt: 01/28/2025 95.4 kg (210 lb 5.1 oz) 2024 95.7 kg (211 lb) Awake, alert, oriented times 3. Patient is not in acute respiratory distress. SKIN: No petechial rash or ecchymosis noted. Head : Normocephalic. Face is symmetrical NECK: Supple. No JVD. Bilateral carotid bruit. No thyromegaly. ENT: Pharyngeal structures are not crowded and uvula is well visualized. LUNGS: Clear to auscultation bilaterally. CARDIAC: There is basal systolic murmur. Left subclavian bruit. BP discrepancy between his 2 arms. ABDOMEN: Soft, nontender, bowel sounds present. non-painful umbilical hernia. EXTREMITIES: No cyanosis, clubbing, edema. PULSES: Peripheral pulses are not palpable in DP and PT arteries. NEURO: Non-focal. Moves all extremities. Musculoskeletal: No significant deformities. Last Labs: I reviewed personally. Sodium Date Value Ref Range Status 02/17/2024 132 (L) 136 - 144 mmol/L Final Potassium Date Value Ref Range Status 02/17/2024 3.9 3.7 - 5.1 mmol/L Final Chloride Date Value Ref Range Status 02/17/2024 93 (L) 98 - 107 mmol/L Final CO2 Date Value Ref Range Status 02/17/2024 23 22 - 30 mmol/L Final Glucose Date Value Ref Range Status 02/17/2024 111 (H) 74 - 99 mg/dL Final Comment: The [place] [employer] (ADA) provides guidance for cutoff values for fasting glucose andrandom glucose. The ADA defines fasting as no caloric intake for at least 8 hours. Fasting plasma glucose results between 100 to 125 mg/dL indicate increased risk for diabetes (prediabetes). Fasting plasma glucose results greater than or equal to 126 mg/dL meet the criteria for diagnosis of diabetes. In the absence of unequivocal hyperglycemia, results should be confirmed by repeat testing. In a patient with classic symptoms of hyperglycemia or hyperglycemic crisis, random plasma glucose results greater than or equal to 200 mg/dL meet the criteria for diagnosis of diabetes. Reference: Standards of Medical Care in Diabetes 2016, [place] [employer]. Diabetes Care. 2016.39(Suppl 1). BUN Date Value Ref Range Status 02/17/2024 6 (L) 9 - 24 mg/dL Final Creatinine Date Value Ref Range Status 12/24/2024 0.63 (L) 0.73 - 1.22 mg/dL Final Calcium, Total Date Value Ref Range Status 02/17/2024 9.2 8.5 - 10.2 mg/dL Final Albumin Date Value Ref Range Status 02/17/2024 4.4 3.9 - 4.9 g/dL Final Protein, Total Date Value Ref Range Status 02/17/2024 7.2 6.3 - 8.0 g/dL Final AST Date Value Ref Range Status 02/17/2024 18 14 - 40 U/L Final ALT Date Value Ref Range Status 02/17/2024 24 10 - 54 U/L Final Alkaline Phosphatase Date Value Ref Range Status 02/17/2024 88 38 - 113 U/L Final Bilirubin, Total Date Value Ref Range Status 02/17/2024 0.5 0.2 - 1.3 mg/dL Final Triglyceride Date Value Ref Range Status 02/17/2024 92 <150 mg/dL Final Comment: <150 mg/dL, Normal 150-199 mg/dL, Borderline high 200-499 mg/dL, High >499 mg/dL, Very high Cholesterol, Total Date Value Ref Range Status 02/17/2024 160 <200 mg/dL Final Comment: <200 mg/dL, Desirable 200-239 mg/dL, Borderline high >239 mg/dL, High HDL Cholesterol Date Value Ref Range Status 02/17/2024 66 >39 mg/dL Final Comment: 40-59 mg/dL, Acceptable >59 mg/dL, High: Negative risk factor for coronary heart disease <40 mg/dL, Low: Positive risk factor for coronary heart disease LDL Cholesterol, Calculated Date Value Ref Range Status 02/17/2024 76 <100 mg/dL Final Comment: <100 mg/dL, Optimal 100-129 mg/dL, Near optimal/above optimal 130-159 mg/dL, Borderline high 160-189 mg/dL, High >189 mg/dL, Very high Secondary prevention optimal LDL Cholesterol levels are recommended to be < 70 mg/dL Cardiovascular Testing: I reviewed personally. I have personally reviewed the Electrocardiogram, Chest X-ray, Laboratory Tests. B/L carotid US 12/10/24: RIGHT SIDE Common carotid artery: 50-99% stenosis. Internal carotid artery: >70% stenosis consistent with severe carotid artery disease. ICA/CCA ratio is inaccurate due to distal common carotid stenosis . Stenosis noted through mid vessel. Unable to rule out FMD. May wish other form of evaluation. External carotid artery: Patent. Vertebral artery: Patent and antegrade flow noted. High resistive signal suggests non-dominant vessel or more distal disease; clinical correlation is suggested. Innominate artery: Patent. Subclavian artery: 50-99% stenosis. LEFT SIDE Common carotid artery: Plaque visualized without evidence of hemodynamically significant stenosis. Internal carotid artery: >70% stenosis consistent with severe carotid artery disease. ICA/CCA ratio is inaccurate due to distal common carotid stenosis . Stenosis noted to mid vessel. Unable to rule out fibromuscular dysplasia. May wish other form of evaluation. External carotid artery: Patent. Vertebral artery: Patent and antegrade flow noted. Subclavian artery: Turbulent flow noted, cannot rule out more proximal subclavian artery stenosis. May wish other means of evaluation. Echo 08/03/20: CONCLUSIONS: - Exam indication: Routine surveillance (>1yr) of known cardiomyopathy without a change in clinical status - The left ventricle is small. There is severe upper septal left ventricular hypertrophy. Left ventricular systolic function is normal. EF = 66 5% (2D 4-ch.) Grade I left ventricular diastolic dysfunction. There is a small LV outflow tract gradient ( 7 mm Hg at rest, and increases to 14 mm Hd with Valsalva). Gradients do not suggest significant LV outflow tract obstruction - The right ventricle is normal in size. Right ventricular systolic function is normal. Tricuspid annular displacement is 1.8 cm. - Exam was compared with the prior OUTSIDE echocardiographic exam performed on 01/16/18. Electronically signed by Karl Chaney MD Cardiac Stress Test 12/18/18: CONCLUSIONS: 1. No evidence of inducible ischemia based on this maximal stress test. 2. Very poor exercise capacity. 3. No evidence of exercise-induced arrhythmias. 4. No anginal symptoms reported by the patient during stress testing. 5. Quick escalation of heart rate, suggesting cardiovascular deconditioning. EKG 01/28/25: SINUS TACHYCARDIA POSSIBLE LEFT ATRIAL ENLARGEMENT CANNOT EXCLUDE ANTERIOR MYOCARDIAL INFARCTION , AGE UNDETERMINED IMPRESSION / RECOMMENDATIONS / PLAN: Encounter Diagnosis ICD-10-CM 1. Dyspnea on exertion R06.09 1. Dyspnea on exertion (R06.09) is due to continued smoking and COPD. See 2 2. Mild coronary artery calcification was noted on the CT scan of the chest in 2020. I will do a Lexiscan nuclear SPECT scan for further evaluation as preoperative workup for carotid artery surgery. I will also order a 2D echocardiogram to assess LV function and pulmonary artery pressures. 3. Peripheral vascular disease with bilateral carotid artery stenosis of left subclavian artery (I77.1) Exertional dyspnea and claudication symptoms likely secondary to peripheral artery disease and subclavian stenosis. - Educated patient on the relationship between vascular disease and symptoms, including dizziness with overhead activity due to subclavian steal phenomenon. 4. Hypertension (I10) Poorly controlled hypertension with BP 160/105 in right arm; patient has been taking metoprolol 25 mg half tablet daily. - Increase metoprolol to 25 mg PO BID. - Instructed patient to avoid BP measurements on the left arm due to carotid stenosis; advised to use right arm only. - Advised patient to reduce alcohol intake to no more than 1-2 beers per day to aid in BP control. - Discussed importance of BP control to avoid surgical cancellation. 5. Mixed hyperlipidemia (E78.2) Contributing to atherosclerotic disease burden. - Educated patient on the role of hyperlipidemia in vascular disease. 6. Smoker (F17.200) 60-year history of smoking 1.5 packs per day, contributing to vascular disease. Smoking cessation advice was given for 4 to 5 minutes. Patient was not interested in discontinuing smoking at this time. - Strongly advised smoking cessation; discussed risks of continued smoking, including heart attack and stroke. 7. Alcohol dependence, daily use (HCC) (F10.20) Patient consumes approximately 6 beers daily, contributing to hypertension. - Advised to reduce alcohol intake to no more than 1-2 beers per day. 8. Subclavian steal syndrome Patient is counseled at length regarding importance of aggressive risk factor modification including compliance with medication, increased activity/exercise, low cholesterol low fat diet. Recommended diet: Low carbohydrate and Low saturated fat, low simple sugar, high fiber diet Exercise minimally 150 minutes per week, increase as tolerated. Adequate hydration. Juan Miguel Rodriguez MD, FACC. Log Haul Operator, Dept of Cardiology, [facility]. Staff Devops Engineer, [facility] [place], [facility]. The patient note was entered by Zehra Little MS4, under revision and guidance of Juan Miguel Rodriguez MDon January 28, 2025 at 2:00 PM. Artificial Intelligence technology for note input was used. [1] Social History Tobacco Use Smoking status: Every Day Current packs/day: 1.50 Average packs/day: 1.5 packs/day for 56.0 years (84.0 ttl pk-yrs) Types: Cigarettes Smokeless tobacco: Never Tobacco comments: start age: 17 Vaping Use Vaping status: Never Used Substance Use Topics Alcohol use: Not Currently Alcohol/week: 42.0 standard drinks of alcohol Types: 42 Cans of beer per week Comment: 6 beer/daily Drug use: No documented in this [facility] History of Present illness Narrative* Citlaly Hobson RT(R) - 12/24/2024 1:00 PM EDT Radiology Service Progress Note DATE OF SERVICE: December 24, 2024 TIME: 2:54 PM PATIENT IDENTITY VERIFICATION COMPLETED USING TWO (2) STANDARD IDENTIFIERS: Name and Date of confirmed by patient verbally. FALL SCREENING: Has the patient had 2 falls in the last year or 1 fall with injury or currently using an Ambulatory Assistive Device (Walker, Cane, Wheelchair, Crutches, etc.)? No PATIENT GENDER DATA: Assigned male at PATIENT RELEVANT IMPLANT DATA REVIEWED: Yes PATIENT PRESENTS WITH AN IMPLANTABLE OR ATTACHED GOLF CLUB HEAD INSPECTOR: No ALLERGIES: Reviewed and unchanged CONTRAST ALLERGY: NO. EXAM: CT -CONTRAST INDUCED NEPHROPATHY RISK FACTORS: Patient age > 60 years CREATININE: Creatinine Date Value Ref Range Status 12/24/2024 0.63 (L) 0.73 - 1.22 mg/dL Final 02/17/2024 0.64 (L) 0.73 - 1.22 mg/dL Final 09/29/2022 0.67 (L) 0.73 - 1.22 mg/dL Final Estimated Glomerular Filtration Rate Date Value Ref Range Status 12/24/2024 98 >=60 mL/min/1.73m Final Comment: Estimated Glomerular Filtration Rate (eGFR) is calculated using the 2020 CKD-EPI creatinine equation. This equation utilizes serum creatinine, sex, and age as parameters. The creatinine assay has traceable calibration to isotope dilution- mass spectrometry. Refer to KDIGO guidelines for clinical interpretation. In patients with unstable renal function, e.g. those with acute kidney injury, the eGFRmay not accurately reflect actual GFR. eGFR- Date Value Ref Range Status 09/07/2020 >60 Final P.O.C.T. RESULTS: POC done: Yes, See Lab Tab December 24, 2024 TREATMENT: N/A PERIPHERAL IV DATA: Ambulatory: A peripheral IV was started in the Left antecubital site with a Angio cath: 20 gauge. RADIOLOGY DEPARTMENT: CT; Exam(s) Completed: CTA Brain and CTA Neck SIGNATURE: RT Efra(R) PATIENT NAME: Lita Meyer DATE: December 24, 2024 TIME: 2:54 PM documented in this encounterCh[facility]25 NoteHNO ID: [id number] Author: CITLALY HOBSON RT(R) Service: Radiology Author Type: Space And Storage Clerk Type: Progress Notes Filed: 12/24/2024 14:54 Note Text: Radiology Service Progress Note DATE OF SERVICE: December 24, 2024 TIME: 2:54 PM PATIENT IDENTITY VERIFICATION COMPLETED USING TWO (2) STANDARD IDENTIFIERS: Name and Date of confirmed by patient verbally. FALL SCREENING: Has the patient had 2 falls in the last year or 1 fall with injury or currently using an Ambulatory Assistive Device (Walker, Cane, Wheelchair, Crutches, etc.)? No PATIENT GENDER DATA: Assigned male at PATIENT RELEVANT IMPLANT DATA REVIEWED: Yes PATIENT PRESENTS WITH AN IMPLANTABLE OR ATTACHED GOLF [employer]UB HEAD INSPECTOR: No ALLERGIES: Reviewed and unchanged CONTRAST ALLERGY: NO. EXAM: CT -CONTRAST INDUCED NEPHROPATHY RISK FACTORS: Patient age > 60 years CREATININE: Creatinine Date Value Ref Range Status 12/24/2024 0.63 (L) 0.73 - 1.22 mg/dL Final 02/17/2024 0.64 (L) 0.73 - 1.22 mg/dL Final 09/29/2022 0.67 (L) 0.73 - 1.22 mg/dL Final Estimated Glomerular Filtration Rate Date Value Ref Range Status 12/24/2024 98 >=60 mL/min/1.73m? Final Comment: Estimated Glomerular Filtration Rate (eGFR) is calculated using the 2020 CKD-EPI creatinine equation. This equation utilizes serum creatinine, sex, and age as parameters. The creatinine assay has traceable calibration to isotope dilution-mass spectrometry. Refer to KDIGO guidelines for clinical interpretation. In patients with unstable renal function, e.g. those with acute kidney injury, the eGFR may not accurately reflect actual GFR. eGFR- Date Value Ref Range Status 09/07/2020 >60 Final P.O.C.T. RESULTS: POC done: Yes, See Lab Tab December 24, 2024 TREATMENT: N/A PERIPHERAL IV DATA: Ambulatory: A peripheral IV was started in the Left antecubital site with a Angio cath: 20 gauge. RADIOLOGY DEPARTMENT: CT; Exam(s) Completed: CTA Brain and CTA Neck SIGNATURE: Citlaly Hobson RT(R) PATIENT NAME: Lita Meyer DATE: December 24, 2024 TIME: 2:54 [facility]07-10-2025 NoteHNO ID: [id number] Author: ANTHONY EGAN MD Service: ? Author Type: Physician Type: Progress Notes Filed: 01/09/2025 16:30 Note Text: [facility] EST[facility]INIC VISIT Lita Meyer [id number] HISTORY OF PRESENT ILLNESS: Lita Meyer is a 79-year-old male, with a history of carotid artery stenosis, presenting for follow-up. Lita reports feeling well overall and denies experiencing any pain while walking. He does report dyspnea on exertion, particularly when walking at a fast pace, but denies any chest pain, palpitations, or dyspnea at rest. He also denies any history of CVA or CO. He denies any leg swelling, he does experience bilateral hip and gluteal weakness when walking long distances necessitating rest. He is currently taking a daily baby aspirin and atorvastatin. He lives alone and is responsible for taking care of his girlfriend, who has difficulty walking and requires assistance with shopping and other activities. Lita has been smoking for 60 years and currently smokes over a pack per day. He is on a daily regimen of aspirin 81 mg, Lipitor 40 mg, and Pletal 100 mg BID. Mr. Meyer denies any TIA/CVA type symptoms and denies any transient FND or episodes of hemiparesis / hemiplegia or amaurosis. Underwent carotid duplex showing R ICA PSV: 445 cm/s. EDV: 116 cm/s L ICA PSV: 374 cm/s. EDV: 51 cm/s with heterogeneous calcified and shadowing plaque throughout bilaterally suggestive of >70% stenosis bilaterally. Vascular health status: Antiplatelet / Anticoagulation: ASA 81 mg, pletal 100 mg Statin or PCSK9i: atorvastatin Vascular screening and surveillance: AAA - None 2018 CT abd/pel PAD - Following Carotid stenosis - carotid duplex > 70% stenosis bilaterally MEDICATIONS: cilostazol (PLETAL) 100 mg tablet Take 1 tablet by mouth two times a day. atorvastatin (LIPITOR) 40 mg tablet Take 1 tablet by mouth once daily. lisinopril-hydroCHLOROthiazide (ZESTORETIC) 20-12.5 mg per tablet TAKE 2 TABLETS BY MOUTH ONCE DAILY. metoprolol succinate ER (TOPROL XL) 25 mg 24 hr tablet TAKE 1/2 (ONE-HALF) OF A TABLET BY MOUTH every afternoon. aspirin, enteric coated (ADULT LOW DOSE ASPIRIN) 81 mg EC tablet Take 1 tablet by mouth once daily. SOCIAL HISTORY: Social History Tobacco Use Smoking status: Every Day Current packs/day: 1.50 Average packs/day: 1.5 packs/day for 56.0 years (84.0 ttl pk-yrs) Types: Cigarettes Smokeless tobacco: Never Tobacco comments: start age: 17 Vaping Use Vaping status: Never Used Substance Use Topics Alcohol use: Yes Alcohol/week: 50.0 standard drinks of alcohol Types: 50 Cans of beer per week Comment: 4 beer/daily Drug use: No PAST MEDICAL HISTORY: PAST MEDICAL HISTORY Diagnosis Date Essential hypertension LVH (left ventricular hypertrophy) Mixed hyperlipidemia Peripheral arterial disease Sinus tachycardia Smoker PAST SURGICAL HISTORY: PAST SURGICAL HISTORY Procedure Laterality Date NONE ALLERGIES: ALLERGIES No Known Allergies Targeted ROS Comprehensive system review of systems did not reveal any pertinent positives or negatives except per HPI PHYSICAL EXAM: Focused Physical Exam: BP 117/79 Pulse 102 SpO2 96% General: WDWN in NAD Pulmonary: Non-labored on RA Coronary: Regular rate, no AMANDA or JVD, R carotid bruit Extremities: Normal range of motion Vascular: non-palpable pedal pulses DIAGNOSTIC TESTS REVIEWED FOR TODAY'S VISIT: Most recent labs and imaging results IMAGING RESULTS: 12/10/2024 PVR leg bilateral RIGHT SIDE Resting right ankle brachial index: 0.66 Abnormal ankle brachial index at rest diagnostic of peripheral artery disease. Right ankle: Moderate disease at rest. LEFT SIDE Resting left ankle brachial index: 0.55 Abnormal ankle brachial index at rest diagnostic of peripheral artery disease. Left ankle: Moderate disease at rest. 12/10/2024 ultrasound carotid arteries bilateral RIGHT SIDE Common carotid artery: Origin: PSV: 121 cm/s. EDV: 0 cm/s. Proximal: PSV: 114 cm/s. EDV: 15 cm/s. Mid: PSV: 165 cm/s. EDV: 20 cm/s. Distal: PSV: 323 cm/s. EDV: 30 cm/s. heterogeneous calcified, shadowing and irregular plaque from mid to distal. Internal carotid artery: Origin: PSV: 246 cm/s. EDV: 23 cm/s. Proximal: PSV: 77 cm/s. EDV: 16 cm/s. Mid: PSV: 445 cm/s. EDV: 116 cm/s. Distal: PSV: 196 cm/s. EDV: 55 cm/s. heterogeneous calcified and shadowing plaque from origin to mid. ICA/CCA Ratio: 0.8 External carotid artery: Proximal: PSV: 185 cm/s. EDV: 17 cm/s. Subclavian artery: Proximal: PSV: 364 cm/s. EDV: 0 cm/s. Mid: PSV: 179 cm/s. EDV: 0 cm/s. heterogeneous calcified plaque at origin. Innominate artery: PSV: 51 cm/s. EDV: 0 cm/s. LEFT SIDE Common carotid artery: Proximal: PSV: 128 cm/s. EDV: 23 cm/s. Mid: PSV: 226 cm/s. EDV: 32 cm/s. Distal: PSV: 235 cm/s. EDV: 36 cm/s. heterogeneous calcified and shado (more content not included)...[facility]07-10-2025 History of Present illness Narrative* Anthony Egan MD - 12/19/2024 12:35 PM EDT Images from the original note were not included. [facility] EST[facility]LISHED CLINIC VISIT Lita Meyer [id number] HISTORY OF PRESENT ILLNESS: Lita Meyer is a 79-year-old male, with a history of carotid artery stenosis, presenting for follow-up. Lita reports feeling well overall and denies experiencing any pain while walking. He does report dyspnea on exertion, particularly when walking at a fast pace, but denies any chest pain, palpitations, or dyspnea at rest. He also denies any history of CVA or CO. He denies any leg swelling, he doesexperience bilateral hip and gluteal weakness when walking long distances necessitating rest. He iscurrently taking a daily baby aspirin and atorvastatin. He lives alone and is responsible for taking care of his girlfriend, who has difficulty walking and requires assistance with shopping and otheractivities. Lita has been smoking for 60 years and currently smokes over a pack per day. He is eugenia daily regimen of aspirin 81 mg, Lipitor 40 mg, and Pletal 100 mg BID. Mr. Meyer denies any TIA/CVA type symptoms and denies any transient FND or episodes of hemiparesis / hemiplegia or amaurosis. Underwent carotid duplex showing R ICA PSV: 445 cm/s. EDV: 116 cm/s L ICA PSV: 374 cm/s. EDV: 51 cm/s with heterogeneous calcified and shadowing plaque throughout bilaterally suggestive of >70% stenosis bilaterally. Vascular health status: Antiplatelet / Anticoagulation: ASA 81 mg, pletal 100 mg Statin or PCSK9i: atorvastatin Vascular screening and surveillance: AAA - None 2018 CT abd/pel PAD - Following Carotid stenosis - carotid duplex > 70% stenosis bilaterally MEDICATIONS: cilostazol (PLETAL) 100 mg tablet Take 1 tablet by mouth two times a day. atorvastatin (LIPITOR) 40 mg tablet Take 1 tablet by mouth once daily. lisinopril-hydroCHLOROthiazide (ZESTORETIC) 20-12.5 mg per tablet TAKE 2 TABLETS BY MOUTH ONCE DAILY. metoprolol succinate ER (TOPROL XL) 25 mg 24 hr tablet TAKE 1/2 (ONE-HALF) OF A TABLET BY MOUTH every afternoon. aspirin, enteric coated (ADULT LOW DOSE ASPIRIN) 81 mg EC tablet Take 1 tablet by mouth once daily. SOCIAL HISTORY: Social History Tobacco Use Smoking status: Every Day Current packs/day: 1.50 Average packs/day: 1.5 packs/day for 56.0 years (84.0 ttl pk-yrs) Types: Cigarettes Smokeless tobacco: Never Tobacco comments: start age: 17 Vaping Use Vaping status: Never Used Substance Use Topics Alcohol use: Yes Alcohol/week: 50.0 standard drinks of alcohol Types: 50 Cans of beer per week Comment: 4 beer/daily Drug use: No PAST MEDICAL HISTORY: PAST MEDICAL HISTORY Diagnosis Date Essential hypertension LVH (left ventricular hypertrophy) Mixed hyperlipidemia Peripheral arterial disease Sinus tachycardia Smoker PAST SURGICAL HISTORY: PAST SURGICAL HISTORY Procedure Laterality Date NONE ALLERGIES: ALLERGIES No Known Allergies Targeted ROS Comprehensive system review of systems did not reveal any pertinent positives or negatives except per HPI PHYSICAL EXAM: Focused Physical Exam: BP 117/79 Pulse 102 SpO2 96% General: WDWN in NAD Pulmonary: Non-labored on RA Coronary: Regular rate, no AMANDA or JVD, R carotid bruit Extremities: Normal range of motion Vascular: non-palpable pedal pulses DIAGNOSTIC TESTS REVIEWED FOR TODAY'S VISIT: Most recent labs and imaging results IMAGING RESULTS: 12/10/2024 PVR leg bilateral RIGHT SIDE Resting right ankle brachial index: 0.66 Abnormal ankle brachial index at rest diagnostic of peripheral artery disease. Right ankle: Moderate disease at rest. LEFT SIDE Resting left ankle brachial index: 0.55 Abnormal ankle brachial index at rest diagnostic of peripheral artery disease. Left ankle: Moderate disease at rest. 12/10/2024 ultrasound carotid arteries bilateral RIGHT SIDE Common carotid artery: Origin: PSV: 121 cm/s. EDV: 0 cm/s. Proximal: PSV: 114 cm/s. EDV: 15 cm/s. Mid: PSV: 165 cm/s. EDV: 20 cm/s. Distal: PSV: 323 cm/s. EDV: 30 cm/s. heterogeneous calcified, shadowing and irregular plaque from mid to distal. Internal carotid artery: Origin: PSV: 246 cm/s. EDV: 23 cm/s. Proximal: PSV: 77 cm/s. EDV: 16 cm/s. Mid: PSV: 445 cm/s. EDV: 116 cm/s. Distal: PSV: 196 cm/s. EDV: 55 cm/s. heterogeneous calcified and shadowing plaque from origin to mid. ICA/CCA Ratio: 0.8 External carotid artery: Proximal: PSV: 185 cm/s. EDV: 17 cm/s. Subclavian artery: Proximal: PSV: 364 cm/s. EDV: 0 cm/s. Mid: PSV: 179 cm/s. EDV: 0 cm/s. heterogeneous calcified plaque at origin. Innominate artery: PSV: 51 cm/s. EDV: 0 cm/s. LEFT SIDE Common carotid artery: Proximal: PSV: 128 cm/s. EDV: 23 cm/s. Mid: PSV: 226 cm/s. EDV: 32 cm/s. Distal: PSV: 235 cm/s. EDV: 36 cm/s. heterogeneous calcified and shadowing plaque from mid to distal. Internal carotid artery: Origin: PSV: 374 cm/s. EDV: 51 cm/s. Proximal: PSV: 373 cm/s. EDV: 47 cm/s. Mid: PSV: 168 cm/s. EDV: 45 cm/s. Distal: PSV: 85 cm/s. EDV: 21 cm/s. heterogeneous calcified and shadowing plaque from origin to mid. ICA/CCA Ratio: 1.6 External carotid artery: Proximal: PSV: 187 cm/s. EDV: 0 cm/s. heterogeneous calcified and shadowing plaque at origin. Subclavian artery: Proximal: PSV: 174 cm/s. EDV: 0 cm/s. Vertebral artery: PSV: 74 cm/s. EDV: 15 cm/s. IMPRESSION Please note: the new carotid interpretation criteria are used as recommended by [employer]. Moris was notified with results at 4:15pm. RIGHT SIDE Common carotid artery: 50-99% stenosis. Internal carotid artery: >70% stenosis consistent with severe carotid artery disease. ICA/CCA ratio is inaccurate due to distal common carotid stenosis . Stenosis noted through mid vessel. Unable to rule out FMD. May wish other form of evaluation. External carotid artery: Patent. Vertebral artery: Patent and antegrade flow noted. High resistive signal suggests non-dominant vessel or more distal disease; clinical correlation is suggested. Innominate artery: Patent. Subclavian artery: 50-99% stenosis. LEFT SIDE Common carotid artery: Plaque visualized without evidence of hemodynamically significant stenosis. Internal carotid artery: >70% stenosis consistent with severe carotid artery disease. ICA/CCA ratio is inaccurate due to distal common carotid stenosis . Stenosis noted to mid vessel. Unable to rule out fibromuscular dysplasia. May wish other form of evaluation. External carotid artery: Patent. Vertebral artery: Patent and antegrade flow noted. Subclavian artery: Turbulent flow noted, cannot rule out more proximal subclavian artery stenosis. May wish other means of evaluation. ASSESSMENT AND PLAN: Lita Meyer is a 79 year old male seen in follow up for PAD and bilateral carotid stenosis. He continues to smoke over a pack per day and endorses significant dyspnea on exertion. Carotid ultrasound revealed significant stenosis, approximately 80% on the right side and over 70% on the left side, increasing risk for cerebrovascular events. No history of stroke or myocardial infarction. Currently asymptomatic with no chest pain or palpitations. I reviewed the options for carotid revascularization with Mr. Meyer, including endarterectomy, TCAR, and transfemoral carotid artery stenting. As well as the benefits (long-term stroke risk reduction) which were discussed in detail. Risks including but not limited to perioperative stroke, heart attack, , bleeding, infection and nerve injury were explained. We also discussed medical management and continued observation with the inherent risk of stroke associated with this approach. Mr. Meyer demonstrated a clear understanding of our discussion, he would like some time to think about his options pending completed workup and will return to clinic following testing to discuss his options fu rther. - Ordered CT angiography to further evaluate the extent of carotid stenosis and future management options. - Ordered echocardiogram to assess cardiac function. - Referral to cardiology for preoperative evaluation and clearance. - Continue maximal medical therapy at this time with high-dose statin as well as aspirin 81 mg daily - Blood sugar control with goal HgA1C < 6.5. - Discussed smoking as a major vascular risk factor, counseling was given focusing on the harmful effects of this addiction especially given the patient's medical condition(s) which will be worsened because of the chemicals in tobacco. Encouraged smoking cessation. Physiologic and physical aspects of tobacco addiction as well as strategies for quitting were discussed. - Counseling was given 5 minutes. - Follow up in after testing and cardiology evaluation Anthony Egan MD Vascular Surgery Staff Medical Decision Making: Problems: High: Chronic illness with severe change Data: Unique test result(s) reviewed: 2 Unique test(s) ordered: 3+ Assessment requiring an independent historian(s) Risk: High: High risk from testing/treatment Medical Decision Making Level: 5 - High This note may have been partially generated using the flatev voice recognition system as well as artificial intelligence technology. While every effort was made to correct voice recognition errors, kindly be aware that some errors may occasionally occur. [facility] Telephone encounter Note * Telephone Encounter - Mica Willis RN - 12/10/2024 1:59 PM EDT Patient came for vascular imaging today and tech noted that BP and HR were elevated. Patient assessed and noted to have HR ranging 100-114. Initially BP Right arm 186/62. Asymptomatic otherwise. Patient reports he took his BP medication at 1130 prior to coming to appt. Testing started at 1230 He denies CP, Shortness of Breath, lightheadedness, AYALA. Recheck BP after resting for testing R 162/68 L 160/82 , HR remained 100-110 Does not monitor BP at home. Educated patient if he become Shortness of Breath, has CP, AYALA, or dizziness to be seen in ER. [facility]07-01-2025 Miscellaneous Notes* Telephone Encounter - Mica Willis RN - 12/10/2024 1:59 PM EDT Patient came for vascular imaging today and tech noted that BP and HR were elevated. Patient assessed and noted to have HR ranging 100-114. Initially BP Right arm 186/62. Asymptomatic otherwise. Patient reports he took his BP medication at 1130 prior to coming to appt. Testing started at 1230 He denies CP, Shortness of Breath, lightheadedness, AYALA. Recheck BP after resting for testing R 162/68 L 160/82 , HR remained 100-110 Does not monitor BP at home. Educated patient if he become Shortness of Breath, has CP, AYALA, or dizziness to be seen in ER. [facility] Telephone encounter Note * Telephone Encounter - Yury Erwin MA - 11/18/2024 10:13 AM EDT pharmacy electronically requesting refills as follows: Last seen 09/17/24 . Last refill cilostazol, atorvastatin 07/30/24, lisinopirl, metoprolol 10/11/24 . Requested Prescriptions Pending Prescriptions Disp Refills cilostazol (PLETAL) 100 mg tablet [Pharmacy Med Name: cilostazol 100 mg tablet] 60 tablet 2 Sig: Take 1 tablet by mouth two times a day. atorvastatin (LIPITOR) 40 mg tablet [Pharmacy Med Name: atorvastatin 40 mg tablet] 30 tablet 2 Sig: Take 1 tablet by mouth once daily. lisinopril-hydroCHLOROthiazide (ZESTORETIC) 20-12.5 mg per tablet [Pharmacy Med Name: lisinopril 20mg-hydrochlorothiazide 12.5 mg tablet] 60 tablet 2 Sig: TAKE 2 TABLETS BY MOUTH ONCE DAILY. metoprolol succinate ER (TOPROL XL) 25 mg 24 hr tablet [Pharmacy Med Name: metoprolol succinate ER 25 mg tablet,extended release 24 hr] 15 tablet 2 Sig: TAKE 1/2 (ONE-HALF) OF A TABLET BY MOUTH every afternoon. Please review and advise. Yury Erwin MA [facility]06-09-2025 Miscellaneous Notes* Telephone Encounter - Yury Erwin MA - 11/18/2024 10:13 AM EDT pharmacy electronically requesting refills as follows: Last seen 09/17/24 . Last refill cilostazol, atorvastatin 07/30/24, lisinopirl, metoprolol 10/11/24 . Requested Prescriptions Pending Prescriptions Disp Refills cilostazol (PLETAL) 100 mg tablet [Pharmacy Med Name: cilostazol 100 mg tablet] 60 tablet 2 Sig: Take 1 tablet by mouth two times a day. atorvastatin (LIPITOR) 40 mg tablet [Pharmacy Med Name: atorvastatin 40 mg tablet] 30 tablet 2 Sig: Take 1 tablet by mouth once daily. lisinopril-hydroCHLOROthiazide (ZESTORETIC) 20-12.5 mg per tablet [Pharmacy Med Name: lisinopril 20mg-hydrochlorothiazide 12.5 mg tablet] 60 tablet 2 Sig: TAKE 2 TABLETS BY MOUTH ONCE DAILY. metoprolol succinate ER (TOPROL XL) 25 mg 24 hr tablet [Pharmacy Med Name: metoprolol succinate ER 25 mg tablet,extended release 24 hr] 15 tablet 2 Sig: TAKE 1/2 (ONE-HALF) OF A TABLET BY MOUTH every afternoon. Please review and advise. Yury Erwin MA documented in this encounterCh[facility] Instructions* Patient Instructions* Anthony Egan MD - 11/01/2024 12:59 PM EDT WALKING PROGRAM INSTRUCTIONS Research in vascular exercise has demonstrated remarkable improvement in symptoms of leg pain (claudication) without expensive or invasive interventions. Regular walking programs are extremely helpful for patients with peripheral vascular disease and intermittent claudication. These steps are designed to help you get started with a safe and effective program to help you walkfarther with less pain: Regular walking exercise minimum 5 days/week (preferably every day). Your goal is to build up to 30 - 45 minutes of total walking time (not counting rest breaks). It may take you several weeks to build up your exercise time starting at 5-10 minutes or whatever you can tolerate. Walk as far as possible using near-maximal pain (8-9 / 10 on pain scale) as a signal to stop, and resume walking when the pain goes away. On a treadmill, set the speed and grade at a level that brings on the claudication pain within 3 to5 minutes. Walk at this rate until you experience claudication of moderate severity, rest until thepain improves, and then resume walking. Over time, you will be able to walk longer at the designated speed and grade; workload should then be increased until you develop the pain within 3 to 5 minutes once again. This regimen will induce a significant benefit. Studies have demonstrated that participants may be able to walk up to three or four times farther and have less leg pain, within twelve weeks, by following this protocol. The [employer] InterSocietal Consensus II (TASC II) Recommendation for lipid control in patients with peripheral arterial disease (PAD) All symptomatic PAD patients should have their low-density lipoprotein (LDL)- cholesterol lowered to(<100 mg/dL). In patients with PAD and a history of vascular disease in other beds (e.g.coronary artery disease) it is reasonable to lower LDL cholesterol levels to (<70 mg/dL) documented in this encounterCh[facility] History of Present illness Narrative* Anthony Egan MD - 11/01/2024 12:30 PM EDT Images from the original note were not included. [facility] [place] DEPARTMENT OF VASCULAR SURGERY OUTPATIENT VISIT DATE November 01, 2024 OUTPATIENT VISIT TYPE CONSULTATION PRIMARY CARE PHYSICIAN: Renetta Cline DO REFERRING PROVIDER: Renetta Cline [address] [place] [id number] Consult requested for an opinion regarding the evaluation and treatment of the above. My final impression and recommendations will be communicated back to the requesting physician by way of the shared medical record or letter via US mail. CHIEF COMPLAINT: PAD with claudication HISTORY OF PRESENT ILLNESS: Lita is a 79-year-old male, with a history of HTN, HLD, left ventricular hypertrophy, sinus tachycardia presenting for evaluation of PAD. Lita was referred by his PCP, Dr. Renetta Cline, in September. He reports experiencing bilateral hip and gluteal weakness when walking long distances, necessitating rest. Prolonged ambulation leads to leg aching and occasional cramping, with no significant difference between the left and right sides. He can perform regular shopping without issues but is unable to mow his yard using a walk-behind mower due to these symptoms. He denies foot pain, chest pain, or palpitations, but notes mild dyspnea with rapid walking. He denies any history of CO, CVA, TIA, or surgeries, except for a heel fracture from a ladder fall, which was managed with a walker boot. He also reports a hernia that is asymptom atic. He denies any family history of aneurysms. Lita has been smoking for 60 years and currently smokes over a pack per day. He is on a daily regimen of aspirin 81 mg, Lipitor 40 mg, and Pletal 100 mg BID, with no reported issues. Vascular health status: Antiplatelet / Anticoagulation: ASA 81 mg Statin or PCSK9i: atorvastatin Vascular screening and surveillance: AAA - None 2018 CT abd/pel PAD - Following Carotid stenosis - Imaging ordered MEDICATIONS: metoprolol succinate ER (TOPROL XL) 25 mg 24 hr tablet TAKE 1/2 (ONE-HALF) OF A TABLET BY MOUTH every afternoon. lisinopril-hydroCHLOROthiazide (ZESTORETIC) 20-12.5 mg per tablet TAKE 2 TABLETS BY MOUTH ONCE DAILY. aspirin, enteric coated (ADULT LOW DOSE ASPIRIN) 81 mg EC tablet Take 1 tablet by mouth once daily. cilostazol (PLETAL) 100 mg tablet Take 1 tablet by mouth two times a day. atorvastatin (LIPITOR) 40 mg tablet Take 1 tablet by mouth once daily. SOCIAL HISTORY: Social History Tobacco Use Smoking status: Every Day Current packs/day: 1.50 Average packs/day: 1.5 packs/day for 56.0 years (84.0 ttl pk-yrs) Types: Cigarettes Smokeless tobacco: Never Tobacco comments: start age: 17 Vaping Use Vaping status: Never Used Substance Use Topics Alcohol use: Yes Alcohol/week: 50.0 standard drinks of alcohol Types: 50 Cans of beer per week Comment: 4 beer/daily Drug use: No PAST MEDICAL HISTORY: PAST MEDICAL HISTORY Diagnosis Date Essential hypertension LVH (left ventricular hypertrophy) Mixed hyperlipidemia Peripheral arterial disease Sinus tachycardia Smoker PAST SURGICAL HISTORY: PAST SURGICAL HISTORY Procedure Laterality Date NONE FAMILY HISTORY FAMILY HISTORY Problem Relation Age of Onset Hypertension Mother other (blood clots) Mother Stroke Father ALLERGIES: ALLERGIES No Known Allergies COMPLETE REVIEW OF SYSTEMS Comprehensive 11 system review of systems did not reveal any pertinent positives or negatives except per HPI PHYSICAL EXAM: VITALS: BP 129/81 Pulse 117 SpO2 96% General: Male, appears well, no acute distress HEENT/PULSES: JVP not visible, carotid bruit present on the right side Chest: normal respiratory effort, no coughing or wheezing Heart: RRR, no heart murmur on auscultation Abdomen: soft, non-tender, hernia present Extremities: no edema, feet warm bilaterally, no wounds Peripheral pulses: palpable femoral pulses bilaterally R > L, non-palp pedal pulses Skin: warm, dry Neurologic: alert, oriented x 3 Psychiatric: normal affect, normal judgment, normal insight. DIAGNOSTIC TESTS REVIEWED FOR TODAY'S VISIT: Most recent labs and imaging results January 2021 - PVR testing: Right BRANDO 0.6, TBI 0.26, moderate disease at rest; Left BRANDO 0.51, TBI 0.28, moderate disease at rest 01/27/2019 CT abdomen pelvis lower extremity IMPRESSION: 1. COMPLETE OCCLUSION OF THE DISTAL AND THE MODERATE STENOSIS OF THE PROXIMAL RIGHT SUPERFICIAL FEMORAL ARTERY. SEVERE STENOSIS OF THE PROXIMAL RIGHT POPLITEAL ARTERIESSUPPLIED VIA COLLATERALS LATERALLY. 2. COMPLETE OCCLUSION OF THE DISTAL LEFT SUPERFICIAL FEMORAL ARTERY. MODERATE TO SEVERE STENOSIS OF THE LEFT POPLITEAL ARTERY, SUPPLIED VIA COLLATERAL. 3. EXTENSIVE CALCIFICATIONS WITH SEVERE STENOSIS OF RIGHT INTERNAL ILIAC ARTERY AND COMPLETE OCCLUSION OF LEFT INTERNAL ILIAC ARTERY. Cholesterol, Total (mg/dL) Date Value 02/17/2024 160 08/14/2019 162 Your Target Total cholesterol < 200 HDL Cholesterol (mg/dL) Date Value 02/17/2024 66 08/14/2019 71 Your Target HDL good cholesterol > 45 for men, > 55 for women LDL Cholesterol, Calculated (mg/dL) Date Value 02/17/2024 76 LDL (mg/dL) Date Value 08/14/2019 70 Your Target LDL bad cholesterol < 70 Triglyceride (mg/dL) Date Value 02/17/2024 92 08/14/2019 104 Your Target Triglycerides < 200 CARDIOPULMONARY STUDIES: The 10-year ASCVD risk score (Renny OWENS, et al., 2019) is: 29.4% Values used to calculate the score: Age: 79 years Sex: Male Is Non- : No Diabetic: No Tobacco smoker: Yes Systolic Blood Pressure: 129 mmHg Is BP treated: Yes HDL Cholesterol: 66 mg/dL Total Cholesterol: 160 mg/dL >=7.5% (intermediate risk). Risk discussion: use moderate-intensity statins and increase to high-intensity with risk enhancers >=20% (high risk). Risk discussion to initiate high-intensity statin ECHO: LV Ejection Fraction (%) Date Value 10/01/2020 66 IMPRESSION AND RECOMMENDATIONS 1. Peripheral artery disease (I73.9) Patient experiences weakness in hips and legs during prolonged walking, previous PVR testing showedmoderate disease at rest bilaterally. Known bilateral SFA occlusions from prior CTA - Ordered repeat PVR testing to assess current perfusion status in the legs. - Continue current medications: Aspirin 81 mg daily, Atorvastatin 40 mg daily, and Cilostazol 100 mg BID. - Advised patient to engage in regular walking exercise - Follow-up in 4-6 weeks to review test results and assess symptom progression. 2. Right carotid bruit (R09.89) - Ordered carotid ultrasound to evaluate for carotid stenosis 3. Primary hypertension (I10) Stable on current medication regimen. 4. Mixed hyperlipidemia (E78.2) Well-controlled on Atorvastatin 40 mg daily. 5. Nicotine dependence, cigarettes, uncomplicated (F17.210) Patient has a 60-year history of smoking, currently smoking over a pack per day. - Discussed smoking as a major vascular risk factor, counseling was given focusing on the harmful effects of this addiction especially given the patient's medical condition(s) which will be worsened because of the chemicals in tobacco. Encouraged smoking cessation. Physiologic and physical aspects of tobacco addiction as well as strategies for quitting were discussed. - Counseling was given 5 minutes. 6. Stenosis of left subclavian artery (I77.1) Differential blood pressures in the arms, asymptomatic - continue to monitor Anthony Egan MD Vascular Surgery Staff Medical Decision Making: Problems: Moderate: New problem with uncertain prognosis Data: Unique test result(s) reviewed: 2 Unique test(s) ordered: 2 Risk: Moderate: Moderate risk from testing/treatment Medical Decision Making Level: 4 - Moderate This note may have been partially generated using the flatev voice recognition system as well as artificial intelligence technology. While every effort was made to correct voice recognition errors, kindly be aware that some errors may occasionally occur. documented in this encounterCh[facility]25 NoteHNO ID: [id number] Author: ANTHONY EGAN MD Service: ? Author Type: Physician Type: Progress Notes Filed: 11/17/2024 19:23 Note Text: [facility] [place] DEPARTMENT OF VASCULAR SURGERY OUTPATIENT VISIT DATE November 01, 2024 OUTPATIENT VISIT TYPE CONSULTATION PRIMARY CARE PHYSICIAN: Renetta Cline DO REFERRING PROVIDER: Renetta Cline [address] [place] [id number] Consult requested for an opinion regarding the evaluation and treatment of the above. My final impression and recommendations will be communicated back to the requesting physician by way of the shared medical record or letter via US mail. CHIEF COMPLAINT: PAD with claudication HISTORY OF PRESENT ILLNESS: Lita is a 79-year-old male, with a history of HTN, HLD, left ventricular hypertrophy, sinus tachycardia presenting for evaluation of PAD. Lita was referred by his PCP, Dr. Renetta Cline, in September. He reports experiencing bilateral hip and gluteal weakness when walking long distances, necessitating rest. Prolonged ambulation leads to leg aching and occasional cramping, with no significant difference between the left and right sides. He can perform regular shopping without issues but is unable to mow his yard using a walk-behind mower due to these symptoms. He denies foot pain, chest pain, or palpitations, but notes mild dyspnea with rapid walking. He denies any history of CO, CVA, TIA, or surgeries, except for a heel fracture from a ladder fall, which was managed with a walker boot. He also reports a hernia that is asymptomatic. He denies any family history of aneurysms. Lita has been smoking for 60 years and currently smokes over a pack per day. He is on a daily regimen of aspirin 81 mg, Lipitor 40 mg, and Pletal 100 mg BID, with no reported issues. Vascular health status: Antiplatelet / Anticoagulation: ASA 81 mg Statin or PCSK9i: atorvastatin Vascular screening and surveillance: AAA - None 2018 CT abd/pel PAD - Following Carotid stenosis - Imaging ordered MEDICATIONS: metoprolol succinate ER (TOPROL XL) 25 mg 24 hr tablet TAKE 1/2 (ONE-HALF) OF A TABLET BY MOUTH every afternoon. lisinopril-hydroCHLOROthiazide (ZESTORETIC) 20-12.5 mg per tablet TAKE 2 TABLETS BY MOUTH ONCE DAILY. aspirin, enteric coated (ADULT LOW DOSE ASPIRIN) 81 mg EC tablet Take 1 tablet by mouth once daily. cilostazol (PLETAL) 100 mg tablet Take 1 tablet by mouth two times a day. atorvastatin (LIPITOR) 40 mg tablet Take 1 tablet by mouth once daily. SOCIAL HISTORY: Social History Tobacco Use Smoking status: Every Day Current packs/day: 1.50 Average packs/day: 1.5 packs/day for 56.0 years (84.0 ttl pk-yrs) Types: Cigarettes Smokeless tobacco: Never Tobacco comments: start age: 17 Vaping Use Vaping status: Never Used Substance Use Topics Alcohol use: Yes Alcohol/week: 50.0 standard drinks of alcohol Types: 50 Cans of beer per week Comment: 4 beer/daily Drug use: No PAST MEDICAL HISTORY: PAST MEDICAL HISTORY Diagnosis Date Essential hypertension LVH (left ventricular hypertrophy) Mixed hyperlipidemia Peripheral arterial disease Sinus tachycardia Smoker PAST SURGICAL HISTORY: PAST SURGICAL HISTORY Procedure Laterality Date NONE FAMILY HISTORY FAMILY HISTORY Problem Relation Age of Onset Hypertension Mother other (blood clots) Mother Stroke Father ALLERGIES: ALLERGIES No Known Allergies COMPLETE REVIEW OF SYSTEMS Comprehensive 11 system review of systems did not reveal any pertinent positives or negatives except per HPI PHYSICAL EXAM: VITALS: BP 129/81 Pulse 117 SpO2 96% General: Male, appears well, no acute distress HEENT/PULSES: JVP not visible, carotid bruit present on the right side Chest: normal respiratory effort, no coughing or wheezing Heart: RRR, no heart murmur on auscultation Abdomen: soft, non-tender, hernia present Extremities: no edema, feet warm bilaterally, no wounds Peripheral pulses: palpable femoral pulses bilaterally R > L, non-palp pedal pulses Skin: warm, dry Neurologic: alert, oriented x 3 Psychiatric: normal affect, normal judgment, normal insight. DIAGNOSTIC TESTS REVIEWED FOR TODAY'S VISIT: Most recent labs and imaging results January 2021 - PVR testing: Right BRANDO 0.6, TBI 0.26, moderate disease at rest; Left BRANDO 0.51, TBI 0.28, moderate disease at rest 01/27/2019 CT abdomen pelvis lower extremity IMPRESSION: 1. COMPLETE OCCLUSION OF THE DISTAL AND THE MODERATE STENOSIS OF THE PROXIMAL RIGHT SUPERFICIAL FEMORAL ARTERY. SEVERE STENOSIS OF THE PROXIMAL RIGHT POPLITEAL ARTERIES SUPPLIED VIA COLLATERALS LATERALLY. 2. COMPLETE OCCLUSION OF THE DISTAL LEFT SUPERFICIAL FEMORAL ARTERY. MODERATE TO SEVERE STENOSIS OF THE LEFT POPLITEAL ARTERY, SUPPLIED VIA COLLATERAL. 3. EXTENSIVE CALCIFICATIONS WITH SEVERE STENOSIS OF RIGHT INTERNAL ILIAC ARTERY AND COMPLETE OCCLUSION OF LEFT INTERNAL ILIAC AR (more content not included)...[facility]05-02-2025 Telephone encounter Note* Telephone Encounter - Belem Martines MA - 10/11/2024 12:02 PM EDT pharmacy requesting refills as follows: Last office visit: 09/17/24 Last refill: both 09/10/24 Requested Prescriptions Pending Prescriptions Disp Refills metoprolol succinate ER (TOPROL XL) 25 mg 24 hr tablet [Pharmacy Med Name: metoprolol succinate ER 25 mg tablet,extended release 24 hr] 15 tablet 0 Sig: TAKE 1/2 (ONE-HALF) OF A TABLET BY MOUTH every afternoon. lisinopril-hydroCHLOROthiazide (ZESTORETIC) 20-12.5 mg per tablet [Pharmacy Med Name: lisinopril 20mg-hydrochlorothiazide 12.5 mg tablet] 60 tablet 0 Sig: TAKE 2 TABLETS BY MOUTH ONCE DAILY. Please review and advise. Belem Martines MA [facility]05-02-2025 Miscellaneous Notes* Telephone Encounter - Belem Martines MA - 10/11/2024 12:02 PM EDT pharmacy requesting refills as follows: Last office visit: 09/17/24 Last refill: both 09/10/24 Requested Prescriptions Pending Prescriptions Disp Refills metoprolol succinate ER (TOPROL XL) 25 mg 24 hr tablet [Pharmacy Med Name: metoprolol succinate ER 25 mg tablet,extended release 24 hr] 15 tablet 0 Sig: TAKE 1/2 (ONE-HALF) OF A TABLET BY MOUTH every afternoon. lisinopril-hydroCHLOROthiazide (ZESTORETIC) 20-12.5 mg per tablet [Pharmacy Med Name: lisinopril 20mg-hydrochlorothiazide 12.5 mg tablet] 60 tablet 0 Sig: TAKE 2 TABLETS BY MOUTH ONCE DAILY. Please review and advise. Belem Martines MA documented in this encounterCh[facility]04-[facility] Instructions* Patient Instructions* Renetta Cline DO - 2024 1:26 PM EDT Take a baby aspirin every day documented in this encounterCh[facility]04-[facility]-2025 NoteHNO ID: [id number] Author: RENETTA CLINE DO Service: ? Author Type: Physician Type: Progress Notes Filed: 09/25/2024 20:28 Note Text: Lita Meyer is a 79 year old male here for a Medicare wellness visit. Medicare Health Risk Assessment General Health Good Exercise: Minutes/Day 0 min Exercise: Days/Week 0 min Alcohol: Daily Use 4 or more times a week Alcohol: Drinks/Day 7 to 9 Alcohol: 6 or more drinks Daily or almost daily Feel off balance no Concerns: Teeth/Dentures no Concerns: Sexual function N/a Troubled by feelings no Frequency: Eating healthy diet trying ADLs requiring help no Safety precautions in home/vehicle yes Smoke, vape, chews tobacco Smokes 1 PPD Difficulty hearing no Difficulty seeing Wears glasses Current Providers Specialists: I have reviewed specialist-related care of the patient in the medical record. Medical/Family history review Reviewed and updated problem list, medical/surgical/family/social history, medications, and allergies. Opioid use review Opioid Medications (last 90 days) No data to display Anxiety/Depression screening PHQ-9 Score: 5 (Mild Depression) Recommendation: no further intervention at this time Cognitive screening Mini Cog Score: 4 Cognitive screening reviewed and No further action needed (score 3-5). Functional Observation Was the patient's Timed Up AND Go test unsteady or >= 12 seconds? No Advance Care Planning Surrogate decision maker documented and/or advance directives scanned in chart Measurements BP 120/66 (BP Site: Left Arm, BP Position: Sitting, BP Cuff Size: Regular Adult) Pulse 108 Temp 37.2 ?C (98.9 ?F) Resp 16 Ht 174 cm (5' 8.5) Wt 95.7 kg (211 lb) SpO2 95% BMI 31.62 kg/m? Vision Screening Right eye - Without correction: With correction: 20/40 Left eye - Without correction: With correction: 20/200 Both eyes - Without correction: With correction: 20/40 ASSESSMENT/PLAN: 1. Medicare annual wellness visit, subsequent - ICD9: V70.0, ICD10: Z00.00 (primary diagnosis) - Counseled on healthy diet and regular exercise 2. Peripheral artery disease - ICD9: 443.9, ICD10: I73.9 - CONSULT TO VASCULAR MEDICINE 3. Essential hypertension - ICD9: 401.9, ICD10: I10 - Controlled - Continue current medications - Recommend home blood pressure monitoring, to bring results to next visit - Encouraged sodium restriction, DASH or Mediterranean diet - Recommend regular aerobic exercise 4. Mixed hyperlipidemia - ICD9: 272.2, ICD10: E78.2 - Controlled - Continue current medications - Counseled on healthy diet and regular exercise 5. Smoker - ICD9: 305.1, ICD10: F17.200 - Cessation encouraged. - Physiologic and physical aspects of tobacco addiction as well as strategies for quitting were discussed. - Counseling was given focusing on the harmful effects of this addiction especially given the patient's medical condition(s) which will be worsened because of the chemicals in tobacco. 6. Obesity, Class I, BMI 30-34.9 - ICD9: 278.00, ICD10: E66.811 Lifestyle modification recommended [facility] History of Present illness Narrative* Renetta Cline DO - 2024 1:16 PM EDT Images from the original note were not included. Lita Meyer is a 79 year old male here for a Medicare wellness visit. Medicare Health Risk Assessment General Health Good Exercise: Minutes/Day 0 min Exercise: Days/Week 0 min Alcohol: Daily Use 4 or more times a week Alcohol: Drinks/Day 7 to 9 Alcohol: 6 or more drinks Daily or almost daily Feel off balance no Concerns: Teeth/Dentures no Concerns: Sexual function N/a Troubled by feelings no Frequency: Eating healthy diet trying ADLs requiring help no Safety precautions in home/vehicle yes Smoke, vape, chews tobacco Smokes 1 PPD Difficulty hearing no Difficulty seeing Wears glasses Current Providers Specialists: I have reviewed specialist-related care of the patient in the medical record. Medical/Family history review Reviewed and updated problem list, medical/surgical/family/social history, medications, and allergies. Opioid use review Opioid Medications (last 90 days) No data to display Anxiety/Depression screening PHQ-9 Score: 5 (Mild Depression) Recommendation: no further intervention at this time Cognitive screening Mini Cog Score: 4 Cognitive screening reviewed and No further action needed (score 3-5). Functional Observation Was the patient's Timed Up & Go test unsteady or >= 12 seconds? No Advance Care Planning Surrogate decision maker documented and/or advance directives scanned in chart Measurements BP 120/66 (BP Site: Left Arm, BP Position: Sitting, BP Cuff Size: Regular Adult) Pulse 108 Temp37.2 C (98.9 F) Resp 16 Ht 174 cm (5' 8.5) Wt 95.7 kg (211 lb) SpO2 95% BMI 31.62 kg/m Vision Screening Right eye - Without correction: With correction: 20/40 Left eye - Without correction: With correction: 20/200 Both eyes - Without correction: With correction: 20/40 ASSESSMENT/PLAN: 1. Medicare annual wellness visit, subsequent - ICD9: V70.0, ICD10: Z00.00 (primary diagnosis) - Counseled on healthy diet and regular exercise 2. Peripheral artery disease - ICD9: 443.9, ICD10: I73.9 - CONSULT TO VASCULAR MEDICINE 3. Essential hypertension - ICD9: 401.9, ICD10: I10 - Controlled - Continue current medications - Recommend home blood pressure monitoring, to bring results to next visit - Encouraged sodium restriction, DASH or Mediterranean diet - Recommend regular aerobic exercise 4. Mixed hyperlipidemia - ICD9: 272.2, ICD10: E78.2 - Controlled - Continue current medications - Counseled on healthy diet and regular exercise 5. Smoker - ICD9: 305.1, ICD10: F17.200 - Cessation encouraged. - Physiologic and physical aspects of tobacco addiction as well as strategies for quitting were discussed. - Counseling was given focusing on the harmful effects of this addiction especially given the patient's medical condition(s) which will be worsened because of the chemicals in tobacco. 6. Obesity, Class I, BMI 30-34.9 - ICD9: 278.00, ICD10: E66.811 Lifestyle modification recommended Renetta Cline DO [facility] Telephone encounter Note * Telephone Encounter - Yury Erwin MA - 09/10/2024 9:20 AM EDT pharmacy faxes requesting refills as follows: Last seen 03/19/24 . Last refill lisinopril 04/25/24, metoprolol 01/23/24. Next office visit 09/17/24 Requested Prescriptions Pending Prescriptions Disp Refills lisinopril-hydroCHLOROthiazide (ZESTORETIC) 20-12.5 mg per tablet [Pharmacy Med Name: lisinopril 20mg-hydrochlorothiazide 12.5 mg tablet] 60 tablet 2 Sig: Take 2 tablets by mouth once daily. metoprolol succinate ER (TOPROL XL) 25 mg 24 hr tablet 15 tablet 2 Sig: Take 0.5 tablets by mouth every afternoon. Please review and advise. Yury Erwin MA [facility]04-01-2025 Miscellaneous Notes* Telephone Encounter - Yury Erwin MA - 09/10/2024 9:20 AM EDT pharmacy faxes requesting refills as follows: Last seen 03/19/24 . Last refill lisinopril 04/25/24, metoprolol 01/23/24. Next office visit 09/17/24 Requested Prescriptions Pending Prescriptions Disp Refills lisinopril-hydroCHLOROthiazide (ZESTORETIC) 20-12.5 mg per tablet [Pharmacy Med Name: lisinopril 20mg-hydrochlorothiazide 12.5 mg tablet] 60 tablet 2 Sig: Take 2 tablets by mouth once daily. metoprolol succinate ER (TOPROL XL) 25 mg 24 hr tablet 15 tablet 2 Sig: Take 0.5 tablets by mouth every afternoon. Please review and advise. Yury Erwin MA documented in this [facility]02-[facility] Telephone encounter Note * Telephone Encounter - Yury Erwin MA - 07/30/2024 4:19 PM EST pharmacy faxes requesting refills as follows: Last seen 03/19/24 . Last refill both 01/23/24 . Requested Prescriptions Pending Prescriptions Disp Refills cilostazol (PLETAL) 100 mg tablet 60 tablet 2 Sig: Take 1 tablet by mouth two times a day. atorvastatin (LIPITOR) 40 mg tablet 30 tablet 2 Sig: Take 1 tablet by mouth once daily. Please review and advise. Yury Erwin MA [facility]02-18-2025 Miscellaneous Notes* Telephone Encounter - Yury Erwin MA - 07/30/2024 4:19 PM EST pharmacy faxes requesting refills as follows: Last seen 03/19/24 . Last refill both 01/23/24 . Requested Prescriptions Pending Prescriptions Disp Refills cilostazol (PLETAL) 100 mg tablet 60 tablet 2 Sig: Take 1 tablet by mouth two times a day. atorvastatin (LIPITOR) 40 mg tablet 30 tablet 2 Sig: Take 1 tablet by mouth once daily. Please review and advise. Yury Erwin MA documented in this encounterCh[facility]11-14-[facility] Telephone encounter Note * Telephone Encounter - Yury Erwin MA - 04/25/2024 8:27 AM EST pharmacy electronically requesting refills as follows: Last seen 03/19/24 . Last refill 01/23/24 . Requested Prescriptions Pending Prescriptions Disp Refills lisinopril-hydroCHLOROthiazide (ZESTORETIC) 20-12.5 mg per tablet [Pharmacy Med Name: lisinopril 20mg-hydrochlorothiazide 12.5 mg tablet] 60 tablet 2 Sig: Take 2 tablets by mouth once daily. Please review and advise. Yury Erwin MA [facility]11-14-[facility] Miscellaneous Notes* Telephone Encounter - Yury Erwin MA - 04/25/2024 8:27 AM EST pharmacy electronically requesting refills as follows: Last seen 03/19/24 . Last refill 01/23/24 . Requested Prescriptions Pending Prescriptions Disp Refills lisinopril-hydroCHLOROthiazide (ZESTORETIC) 20-12.5 mg per tablet [Pharmacy Med Name: lisinopril 20mg-hydrochlorothiazide 12.5 mg tablet] 60 tablet 2 Sig: Take 2 tablets by mouth once daily. Please review and advise. Yury Erwin MA documented in this encounter[facility]10-[facility] History of Present illness Narrative* Renetta Cline DO - 03/19/2024 1:41 PM EDT Subjective The history is provided by the patient. Hypertension This is a chronic problem. The current episode started more than 1 year ago. The problem is unchanged. The problem is controlled. Pertinent negatives include no blurred vision, chest pain, headaches,malaise/fatigue, palpitations or shortness of breath. ALLERGIES No Known Allergies Current Outpatient Medications Medication Sig Dispense Refill cilostazol (PLETAL) 100 mg tablet take 1 tablet by mouth twice a day 60 tablet 2 metoprolol succinate ER (TOPROL XL) 25 mg 24 hr tablet Take 0.5 tablets by mouth every afternoon. 15 tablet 2 atorvastatin (LIPITOR) 40 mg tablet Take 1 tablet by mouth once daily. 30 tablet 2 lisinopril-hydroCHLOROthiazide (ZESTORETIC) 20-12.5 mg per tablet Take 2 tablets by mouth once daily. 60 tablet 2 No current facility-administered medications for this visit. ACTIVE PROBLEM LIST Closed Nondisplaced Fracture of Body of Right Calcaneus Obesity, Class I, Bmi 30-34.9 Essential Hypertension Mixed Hyperlipidemia Encounter for Screening Colonoscopy Heme Positive Stool Lvh (Left Ventricular Hypertrophy) Bmi 31.0-31.9,Adult Peripheral Artery Disease (Hcc) Sinus Tachycardia Smoker Amyloidosis, Unspecified Type (Hcc) Other Cardiomyopathy (Hcc) Thrombocytosis Alcohol Dependence, Daily Use (Hcc) History of Elevated Prostate Specific Antigen (Psa) Social History Tobacco Use Smoking status: Every Day Current packs/day: 1.50 Average packs/day: 1.5 packs/day for 56.0 years (84.0 ttl pk-yrs) Types: Cigarettes Smokeless tobacco: Never Tobacco comments: start age: 17 Vaping Use Vaping status: Never Used Substance Use Topics Alcohol use: Yes Alcohol/week: 50.0 standard drinks of alcohol Types: 50 Cans of beer per week Comment: 4 beer/daily Drug use: No Family History Problem Relation Age of Onset Hypertension Mother other (blood clots) Mother Stroke Father Reviewed past medical history, family history and surgeries. All medications and supplements were reviewed with the patient. Review of Systems Constitutional: Negative for chills, diaphoresis, fever, malaise/fatigue and weight loss. HENT: Negative for ear pain and hearing loss. Eyes: Negative for blurred vision and double vision. Respiratory: Negative for cough and shortness of breath. Cardiovascular: Negative for chest pain, palpitations and leg swelling. Gastrointestinal: Negative for constipation, diarrhea and heartburn. Genitourinary: Negative for dysuria and frequency. Musculoskeletal: Negative for back pain, falls, joint pain and myalgias. Skin: Negative for itching and rash. Neurological: Negative for dizziness, weakness and headaches. Endo/Heme/Allergies: Does not bruise/bleed easily. Psychiatric/Behavioral: Negative for depression and substance abuse. The patient does not have insomnia. Objective BP 132/68 (BP Site: Left Arm, BP Position: Sitting, BP Cuff Size: Regular Adult) Pulse 116 Temp36.7 C (98 F) Ht 175.3 cm (5' 9.02) Wt 99.3 kg (219 lb) SpO2 93% BMI 32.33 kg/m Physical Exam Constitutional: Appearance: Normal appearance. He is obese. HENT: Head: Normocephalic and atraumatic. Nose: Nose normal. Mouth/Throat: Mouth: Mucous membranes are moist. Dentition: Normal dentition. Eyes: General: Lids are normal. Extraocular Movements: Extraocular movements intact. Conjunctiva/sclera: Conjunctivae normal. Pupils: Pupils are equal, round, and reactive to light. Neck: Thyroid: No thyroid mass or thyromegaly. Vascular: No carotid bruit. Trachea: Phonation normal. Cardiovascular: Rate and Rhythm: Normal rate and regular rhythm. Heart sounds: Normal heart sounds. No murmur heard. No friction rub. No gallop. Pulmonary: Effort: Pulmonary effort is normal. Breath sounds: Normal breath sounds. No wheezing or rales. Abdominal: General: Bowel sounds are normal. There is no distension. Palpations: Abdomen is soft. There is no mass. Tenderness: There is no abdominal tenderness. Musculoskeletal: General: No swelling or tenderness. Normal range of motion. Cervical back: Normal range of motion and neck supple. No edema. Lymphadenopathy: Cervical: No cervical adenopathy. Skin: General: Skin is warm and dry. Findings: No erythema or rash. Nails: There is no clubbing. Neurological: Mental Status: He is alert and oriented to person, place, and time. Cranial Nerves: No cranial nerve deficit. Motor: Motor function is intact. Coordination: Coordination normal. Gait: Gait is intact. Psychiatric: Attention and Perception: Attention normal. Mood and Affect: Mood and affect normal. Speech: Speech normal. Behavior: Behavior normal. Behavior is cooperative. Thought Content: Thought content normal. Cognition and Memory: Cognition and memory normal. Judgment: Judgment normal. ASSESSMENT/PLAN: 1. Essential hypertension - ICD9: 401.9, ICD10: I10 (primary diagnosis) - Controlled - Recommend home blood pressure monitoring, to bring results to next visit - Encouraged sodium restriction, DASH or Mediterranean diet - Recommend regular aerobic exercise 2. Mixed hyperlipidemia - ICD9: 272.2, ICD10: E78.2 - Controlled - Continue current medications - Counseled on healthy diet and regular exercise 3. Smoker - ICD9: 305.1, ICD10: F17.200 - Cessation encouraged. - Physiologic and physical aspects of tobacco addiction as well as strategies for quitting were discussed. - Counseling was given focusing on the harmful effects of this addiction especially given the patient's medical condition(s) which will be worsened because of the chemicals in tobacco. 4. Obesity, Class I, BMI 30-34.9 - ICD9: 278.00, ICD10: E66.811 Lifestyle modification recommended Renetta Cline DO documented in this encounter[facility]09-[facility] Telephone encounter Note * Telephone Encounter - Liliana Saldana MA - 02/19/2024 11:55 AM EDT Patient girlfriend(ninfa notified) notified. . Liliana Saldana MA [facility]09-09-2024 Miscellaneous Notes* Telephone Encounter - Liliana Saldana MA - 02/19/2024 11:55 AM EDT Patient girlfriend(ninfa notified) notified. . Liliana Saldana MA documented in this encounterCh[facility]08-20-2024 Telephone encounter Note * Telephone Encounter - Citlaly He MA - 01/30/2024 8:43 AM EDT VM box is full do letter has been sent Citlaly He MA [facility]08-20-2024 Miscellaneous Notes* Telephone Encounter - Citlaly He MA - 01/30/2024 8:43 AM EDT VM box is full do letter has been sent Citlaly He MA * Telephone Encounter - Citlaly He MA - 01/25/2024 4:07 PM EDT VM box is full Citlaly He MA * Telephone Encounter - Liliana Saldana MA - 01/23/2024 4:00 PM EDT Mail box is full. Liliana Saldana MA * Telephone Encounter - Renetta Cline DO - 01/23/2024 1:01 PM EDT Please notify pt they are due for blood work - order attached Renetta Cline DO * Telephone Encounter - Citlaly He MA - 01/22/2024 9:33 AM EDT Patient is switching to [facility] Citlaly He MA * Telephone Encounter - Yury Erwin MA - 01/22/2024 8:46 AM EDT pharmacy electronically requesting refills as follows: Last seen 03/28/23 . Last refill 07/18/23 . Requested Prescriptions Pending Prescriptions Disp Refills cilostazol (PLETAL) 100 mg tablet [Pharmacy Med Name: CILOSTAZOL 100 MG TABLET] 60 tablet 0 Sig: take 1 tablet by mouth twice a day Please review and advise. Yury Erwin MA documented in this encounterCh[facility]08-15-2024 Telephone encounter Note * Telephone Encounter - Citlaly He MA - 01/25/2024 4:07 PM EDT VM box is full Citlaly He MA [facility]08-13-[facility] Telephone encounter Note* Telephone Encounter - Liliana Saldana MA - 01/23/2024 4:00 PM EDT Mail box is full. Liliana Saldana MA [facility]08-13-[facility] Telephone encounter Note* Telephone Encounter - Renetta Cline DO - 01/23/2024 1:01 PM EDT Please notify pt they are due for blood work - order attached Renetta Cline DO [facility]08-12-[facility] Telephone encounter Note* Telephone Encounter - Citlaly He MA - 01/22/2024 9:33 AM EDT Patient is switching to [facility] Citlaly He MA [facility]08-12-[facility] Telephone encounter Note* Telephone Encounter - Yury Erwin MA - 01/22/2024 8:46 AM EDT pharmacy electronically requesting refills as follows: Last seen 03/28/23 . Last refill 07/18/23 . Requested Prescriptions Pending Prescriptions Disp Refills cilostazol (PLETAL) 100 mg tablet [Pharmacy Med Name: CILOSTAZOL 100 MG TABLET] 60 tablet 0 Sig: take 1 tablet by mouth twice a day Please review and advise. Yury Erwin MA [facility]05-22-[facility] Telephone encounter Note* Telephone Encounter - Lilibeth Torres MA - 11/01/2023 1:16 PM EDT Last OV 04/28/23 Labs 11/19/22 Pharmacy calls in requesting the following refill(s): Requested Prescriptions Pending Prescriptions Disp Refills metoprolol succinate ER (TOPROL XL) 25 mg 24 hr tablet [Pharmacy Med Name: METOPROLOL SUCC ER 25 MGTAB] 15 tablet 5 Sig: take 1/2 tablet by mouth once daily Lilibeth Torres MA [facility]05-22-2024 Miscellaneous Notes* Telephone Encounter - Lilibeth Torres MA - 11/01/2023 1:16 PM EDT Last OV 04/28/23 Labs 11/19/22 Pharmacy calls in requesting the following refill(s): Requested Prescriptions Pending Prescriptions Disp Refills metoprolol succinate ER (TOPROL XL) 25 mg 24 hr tablet [Pharmacy Med Name: METOPROLOL SUCC ER 25 MGTAB] 15 tablet 5 Sig: take 1/2 tablet by mouth once daily Lilibeth Torres MA documented in this encounterCh[facility]ic[facility]05-17-2024 History of Present illness Narrative* Scotty Mejia MD - 10/27/2023 8:55 AM EDT Images from the original note were not included. [facility] UROLOGY ESTABLISHED PATIENT CLINIC NOTE [facility] PATIENT INFO: Lita Meyer 78 year old PCP: Renetta Cline DO IMPRESSION/PLAN: 1. Elevated PSA - ICD9: 790.93, ICD10: R97.20 (primary diagnosis) -elevated PSA is likely secondary to BPH. Continue to monitor PSA annually through his PCP. 2. Benign prostatic hyperplasia without lower urinary tract symptoms - ICD9: 600.00, ICD10: N40.0 -Patient is asymptomatic REASON FOR VISIT: Path results HPI: Lita Meyer returns for continuing evaluation and management. Overall patient did very well after undergoing recent biopsy on October 10. Pathology from prostate biopsy was completely negative for all 12 samples. UROLOGICAL DATA: Post Void Residual, Ultrasound: N/A cc OTHER DATA: PSA (ng/mL) Date Value 05/15/2023 8.63 PSA Screening (ng/mL) Date Value 03/28/2023 8.30 11/12/2021 6.82 PSA, Percent Free (%) Date Value 05/15/2023 12 No results found for: ISOPSA Creatinine Date Value Ref Range Status 09/29/2022 0.67 (L) 0.73 - 1.22 mg/dL Final 11/12/2021 0.64 (L) 0.73 - 1.22 mg/dL Final 09/07/2020 0.69 (L) 0.73 - 1.22 mg/dL Final 08/14/2019 0.66 (L) 0.67 - 1.17 mg/dL Final Comment: Use of this assay is not recommended for patients undergoing treatment with phenindione, due to the potential for falsely depressed results. No results found for: TESTOST, TESTFREE PMHx/PSHx: see above, otherwise unchanged Rx: reviewed and unchanged ROS: see above, otherwise unchanged Labs: None Imaging: None MEDICATIONS: Current Outpatient Medications Medication Sig atorvastatin (LIPITOR) 40 mg tablet take 1 tablet by mouth once daily cilostazol (PLETAL) 100 mg tablet take 1 tablet by mouth twice a day lisinopril-hydroCHLOROthiazide (ZESTORETIC) 20-12.5 mg per tablet take 2 tablets by mouth once daily metoprolol succinate ER (TOPROL XL) 25 mg 24 hr tablet take 1/2 tablet by mouth once daily No current facility-administered medications for this visit. PHYSICAL EXAM: There were no vitals taken for this visit. There is no height or weight on file to calculate BMI. General: Well masculinized, well nourished male Psych: euthymic, NAD Neuro: A&Ox3 Inguinal: No lesions, adenopathy, or hernias exam FOLLOW UP: as needed Scotty Mejia M.D, MS Associate Staff [facility] documented in this encounterChillic[facility]05-01-[facility]24 Nurse Note* Sebastian Zamudio MA - 10/11/2023 12:23 PM EDT The patient was seen in the office today for follow-up evaluation and transrectal ultrasound guidedprostate biopsy for a history of elevated psa (ICD- 10 code R97.2). The patient has a prior urologichistory of elevated PSA. He is doing well with no new significant complaints. Examination: abnormal prostate examTenderness non-tender, and enlarged The remainder of the examination is unremarkable. All recent laboratory and test results were reviewed with the patient. PSA (ng/mL) Date Value 05/15/2023 8.63 PSA Screening (ng/mL) Date Value 03/28/2023 8.30 11/12/2021 6.82 Creatinine Date Value Ref Range Status 09/29/2022 0.67 (L) 0.73 - 1.22 mg/dL Final A urinalysis was performed revealing: no evidence of infection or hematuria. Urinalysis No results found for: PH, SPGR, UGLUC, UBILI, UKET, UHB, UPROT, UROBIL, UWBC, SSA UNIVERSAL PROTOCOL / SAFETY CHECKLIST Procedure to be Performed: TRANSRECTAL ULTRASOUND GUIDED BIOPSY OF THE PROSTATE Sign In: A Moment of CARE was completed. Personnel directly involved with the procedure wore the appropriate PPE (Personal Protective Equipment). No special equipment needed. Patient/Surrogate Stated/Verified: PATIENT VERIFIED(optional for EMERGENT procedures): Patient name, Date of , Relevant allergies, and The intended procedure Time Out Communication: Intended patient and procedure match the source documents. Consent documented and matches the intended procedure. No relevant labs, photos, and/or imaging studies were applicable for review. No correct side/site applicable for marking and visibility. Medications required for procedure verified. No fire risk assessment and interventions applicable. No implant(s) inserted. Sign Out: SIGN OUT (optional for EMERGENT procedures): All specimen containers correctly labeled. Post-procedure follow-up management communicated and Plan of Care Visit completed when applicable. Sebastian Zamudio MA TRANS RECTAL ULTRASOUND PROSTATE BIOPSY The patient confirmed that he had discontinued all aspirin products, blood thinners and NSAIDS as directed. The prescribed prep and prophylactic antibiotics were taken as directed. He took Levaquin 750 mg orally and was given intramuscular gentamicin 160 mg. The benefits and risks of the transrectal ultrasound guided prostate biopsy procedure were discussed with the patient, especially the potential complications of prostate biopsy including, but not limited to: pain, infection, bleeding, hematochezia, hematuria, worsening of voiding symptoms, urinary r etention, sepsis and possible need for additional biopsies. All questions were answered to the patient's satisfaction. The written consent will be scanned into to the patient's electronic medical record. Procedure: The patient was placed on the procedure table in the lateral recumbent position. The well-lubricated transrectal ultrasound probe was carefully and atraumatically inserted into the rectum and the prostate was visualized. A prostate volume of approximately 60.26 grams, length 60.86 mm, wid th 45.93 mm. The prostate was homogeneous. A periprostatic block was then given in the standard fashion, using 1% lidocaine with a spinal needle under directed transrectal ultrasound guidance. Once adequate anesthesia was achieved, 12 needle biopsy cores were taken from the left and right lobes of the prostate. Specimens were sent to pathology for histologic evaluation. The patient tolerated the procedure well without complications. Assessment: elevated psa (ICD-10 code R97.2) Plan: The patient was given standard post-procedure instructions and advised to stay well hydrated. The patient has been instructed to return to the office in approximately one week in order to review the biopsy results. That appointment will be scheduled by the patient, today. Based on these results, further management will be instituted. [facility]05-[facility] Nurse Note* Sebastian Zamudio MA - 10/11/2023 12:23 PM EDT The patient was seen in the office today for follow-up evaluation and transrectal ultrasound guidedprostate biopsy for a history of elevated psa (ICD- 10 code R97.2). The patient has a prior urologichistory of elevated PSA. He is doing well with no new significant complaints. Examination: abnormal prostate examTenderness non-tender, and enlarged The remainder of the examination is unremarkable. All recent laboratory and test results were reviewed with the patient. PSA (ng/mL) Date Value 05/15/2023 8.63 PSA Screening (ng/mL) Date Value 03/28/2023 8.30 11/12/2021 6.82 Creatinine Date Value Ref Range Status 09/29/2022 0.67 (L) 0.73 - 1.22 mg/dL Final A urinalysis was performed revealing: no evidence of infection or hematuria. Urinalysis No results found for: PH, SPGR, UGLUC, UBILI, UKET, UHB, UPROT, UROBIL, UWBC, SSA UNIVERSAL PROTOCOL / SAFETY CHECKLIST Procedure to be Performed: TRANSRECTAL ULTRASOUND GUIDED BIOPSY OF THE PROSTATE Sign In: A Moment of CARE was completed. Personnel directly involved with the procedure wore the appropriate PPE (Personal Protective Equipment). No special equipment needed. Patient/Surrogate Stated/Verified: PATIENT VERIFIED(optional for EMERGENT procedures): Patient name, Date of , Relevant allergies, and The intended procedure Time Out Communication: Intended patient and procedure match the source documents. Consent documented and matches the intended procedure. No relevant labs, photos, and/or imaging studies were applicable for review. No correct side/site applicable for marking and visibility. Medications required for procedure verified. No fire risk assessment and interventions applicable. No implant(s) inserted. Sign Out: SIGN OUT (optional for EMERGENT procedures): All specimen containers correctly labeled. Post-procedure follow-up management communicated and Plan of Care Visit completed when applicable. Sebastian Zamudio MA TRANS RECTAL ULTRASOUND PROSTATE BIOPSY The patient confirmed that he had discontinued all aspirin products, blood thinners and NSAIDS as directed. The prescribed prep and prophylactic antibiotics were taken as directed. He took Levaquin 750 mg orally and was given intramuscular gentamicin 160 mg. The benefits and risks of the transrectal ultrasound guided prostate biopsy procedure were discussed with the patient, especially the potential complications of prostate biopsy including, but not limited to: pain, infection, bleeding, hematochezia, hematuria, worsening of voiding symptoms, urinary r etention, sepsis and possible need for additional biopsies. All questions were answered to the patient's satisfaction. The written consent will be scanned into to the patient's electronic medical record. Procedure: The patient was placed on the procedure table in the lateral recumbent position. The well-lubricated transrectal ultrasound probe was carefully and atraumatically inserted into the rectum and the prostate was visualized. A prostate volume of approximately 60.26 grams, length 60.86 mm, wid th 45.93 mm. The prostate was homogeneous. A periprostatic block was then given in the standard fashion, using 1% lidocaine with a spinal needle under directed transrectal ultrasound guidance. Once adequate anesthesia was achieved, 12 needle biopsy cores were taken from the left and right lobes of the prostate. Specimens were sent to pathology for histologic evaluation. The patient tolerated the procedure well without complications. Assessment: elevated psa (ICD-10 code R97.2) Plan: The patient was given standard post-procedure instructions and advised to stay well hydrated. The patient has been instructed to return to the office in approximately one week in order to review the biopsy results. That appointment will be scheduled by the patient, today. Based on these results, further management will be instituted. [facility] this [facility] Instructions* Patient Instructions* Scotty Mejia MD - 10/11/2023 11:07 AM EDT AFTER YOUR PROSTATE BIOPSY You have undergone a transrectal prostate biopsy. Your doctor has taken small samples of prostatic tissue through the rectal wall. These samples will be sent to the lab to be studied by a pathologist. WHAT TO EXPECT * A small amount of blood may be noted in your urine and stool for up to 1-2 weeks and semen up to 6 weeks. WHAT TO DO * Resume normal activity and medications (avoid aspirin, motrin and aleve for 3 days). Tylenol is ok to take. * Drink 6-8 glasses of fluid each day for 3 days to help flush your urinary system. * Soak in a warm tub bath for 20 minutes if you experience rectal soreness. MEDICATIONS * If an antibiotic is prescribed, take it until ALL the medication is gone. (If you miss a dose, continue when you remember and finish the medication completely.) * Other medication instructions: As prescribed. WHEN TO CALL THE DOCTOR * If you have a fever over 100* Fahrenheit. * If you are unable to urinate. * If blood clots form in your urine. * If your urine becomes very bloody and does not clear with drinking extra fluids. Between the hours of 8:30 AM and 4:30 PM call our office: at [phone] [place] Office After 5 PM and on weekends: Call [phone] or [phone] and ask for the urologist deckhand sponge boat. The doctor will need to know that you have had a prostate biopsy and what symptoms you are having. documented in this encounterCh[facility]05-01-2024 History of Present illness Narrative* Scotty Mejia MD - 10/11/2023 11:06 AM EDT Images from the original note were not included. [facility] [place] [facility] OUTPATIENT PROCEDURE NOTE [facility] TRANSRECTAL ULTRASOUND OF PROSTATE UNIVERSAL PROTOCOL AND SAFETY CHECKLIST Procedure to be Performed: TRUS/biopsy PROCEDURE DATE: October 11, 2023 Sign In: A Moment of CARE was completed. Personnel directly involved with the procedure wore the appropriate PPE (Personal Protective Equipment). Patient/Surrogate Stated/Verified: PATIENT VERIFIED(optional for EMERGENT procedures): Patient name, Date of , Relevant allergies and The intended procedure Time Out Communication: Intended patient and procedure match the source documents. Consent documented and matches the intended procedure. Sign Out: SIGN OUT (optional for EMERGENT procedures): All specimen containers correctly labeled. Procedure description: The patient was placed in the lateral decubitus position. Digital rectal exam was abnormal. Enlarged, firm The ultrasound probe was placed into the rectum and the prostate visualized. Approximately five cc plain lidocaine was injected bilaterally into the perioprostatic nerves. The prostate was visualizedin sagittal and transverse planes and no hypoechoic lesion identified. The total prostate volume was 60 gm Ultrasound was used for needle guidance for prostate biopsies. The patient underwent biopsy removing 12 total cores. Complications: Slight bleeding, less than 5cc Sign Out Details of Procedure: Listed Above Sign Out Discussion: Completed Pre-procedure Diagnosis: elevated PSA Post-procedure Diagnosis: elevated PSA Follow-up: 2-4 weeks for results of path Scotty Mejia MD, MS Associate Staff [facility] documented in this encounterChillic[facility]03-20-2024 Miscellaneous Notes* Telephone Encounter - Jerel Schulte RN - 08/30/2023 3:30 PM EDT New order is pended please file order for upcoming biopsy. * Telephone Encounter - Amanda Nichols - 08/30/2023 10:02 AM EDT Patient calls in today to inquire about script sent on 07/05/23 for Levaquin. Says he never knew it was sent and now [facility] is telling him they dont have it. Can we resend to [facility]? Thank you Amanda Nicholson documented in this encounterChillic[facility]02-06-2024 Miscellaneous Notes* Telephone Encounter - Yury Erwin MA - 07/18/2023 10:01 AM EST pharmacy electronically requesting refills as follows: Last seen 03/28/23 . Last refill atorvastatin 10/17/22, cilostazol 12/26/22 . Requested Prescriptions Pending Prescriptions Disp Refills atorvastatin (LIPITOR) 40 mg tablet [Pharmacy Med Name: ATORVASTATIN 40 MG TABLET] 30 tablet 5 Sig: take 1 tablet by mouth once daily cilostazol (PLETAL) 100 mg tablet [Pharmacy Med Name: CILOSTAZOL 100 MG TABLET] 60 tablet 5 Sig: take 1 tablet by mouth twice a day Please review and advise. Yury Erwin MA documented in this encounterChillic[facility]11-29-2023 Instructions* Patient Instructions* Scotty Mejia MD - 05/10/2023 1:21 PM EST I discussed the implications of an elevated total PSA value. I discussed possible causes of elevated, including BPH, prostatitis and prostate cancer. I also discussed causes of false elevations of PSA values, including sexual activity, bicycle/motorcycle riding, vigorous exercise, and taking vitamins containing biotin 48-72 hours prior to PSA test.We talked about approaches which would include surveillance with PSA rechecks at regular intervals, MRI of prostate followed by biopsy, Transperinealbiopsy, or standard TRUS Bx. After discussing the pros and cons of each approach we decided to proceed with Free PSA The below table lists the probability of finding prostate cancer upon needle biopsy, for men 50 years or older and total PSA concentrations from 4.0-10.0 ng/mL. Results should be interpreted within the broader clinical context. Free PSA(%) 50-59 years 60-69 years >69 years <11 49.2% 57.5% 64.5% 11-18 26.9% 33.9% 40.8% 19-25 18.3% 23.9% 29.7% >25 9.1% 12.2% 15.8% documented in this encounterChillicothe [facility]11-29-2023 History of Present illness Narrative* Scotty Mejia MD - 05/10/2023 1:04 PM EST Images from the original note were not included. [facility] CONSULT NOTE [facility] PATIENT: Lita Meyer (77 year old) PCP: Renetta Cline DO CHIEF COMPLAINT: Elevated PSA HISTORY OF PRESENT ILLNESS: Lita Meyer is a 77 year old male with a recent history of elevated PSA who presents for evaluation. The routine PSA obtained in November 2021, for prostate cancer screening, was elevated at 622. Patient does not recall ever having a PSA drawn before that. He was referredto urology at that time however he did not follow-up as directed. He now being referred again by his primary care provider for evaluation of PSA elevation. Patient denies having any considerable voiding dysfunction. FAMILY Hx OF MALIGNANCY: No INTERNATIONAL PROSTATE SYMPTOM SCORE (I-PSS) 1)INCOMPLETE EMPTYING Over the past month, how often have you had a sensation of not emptying your bladder completely after you finished urinating? SCORE: 3- About half the time 2)FREQUENCY Over the past month, how often have you had to urinate again less than two hours after you finishedurinating? SCORE: 4- More than half the time 3)INTERMITTENCY Over the past month, how often have you found you stopped and started again several times when you urinated? SCORE: 4- More than half the time 4)URGENCY Over the past month, how often have you found it difficult to postpone urination? SCORE: 1- Less than 1 time in 5 5)WEAK STREAM Over the past month, how often have you had a weak stream? SCORE: 1- Less than 1 time in 5 6)STRAINING Over the past month, how often have you had to push or strain to begin urination SCORE: 1- Less than 1 time in 5 7)NOCTURIA Over the past month, how many times did you most typically get up to urinate from the time you wentto bed at night until the time you get up in the morning? SCORE:2 TOTAL I-PSS SCORE: 16 QUALITY OF LIFE DUE TO URINARY SYMPTOMS If you were to spend the rest of your life with your urinary condition just the way it is now, how would you feel about that? 1- Pleased LAB DATA: PSA Screening (ng/mL) Date Value 03/28/2023 8.30 11/12/2021 6.82 No results found for: ISOPSA Creatinine Date Value Ref Range Status 09/29/2022 0.67 (L) 0.73 - 1.22 mg/dL Final 11/12/2021 0.64 (L) 0.73 - 1.22 mg/dL Final 09/07/2020 0.69 (L) 0.73 - 1.22 mg/dL Final 08/14/2019 0.66 (L) 0.67 - 1.17 mg/dL Final Comment: Use of this assay is not recommended for patients undergoing treatment with phenindione, due to the potential for falsely depressed results. OFFICE DATA: POST-VOID RESIDUAL BLADDER VOLUME: 129 cc URINE POC Unable to provide urine today REVIEW OF SYSTEMS: Reviewed and otherwise non-contributory. HISTORY: PAST MEDICAL HISTORY Diagnosis Date Essential hypertension LVH (left ventricular hypertrophy) Mixed hyperlipidemia Peripheral arterial disease (HCC) Sinus tachycardia Smoker PAST SURGICAL HISTORY Procedure Laterality Date NONE Social History Tobacco Use Smoking status: Every Day Packs/day: 1.50 Years: 56.00 Additional pack years: 0.00 Total pack years: 84.00 Types: Cigarettes Smokeless tobacco: Never Tobacco comments: start age: 17 Vaping Use Vaping Use: Never used Substance Use Topics Alcohol use: Yes Alcohol/week: 50.0 standard drinks of alcohol Types: 50 Cans of beer per week Comment: 4 beer/daily Drug use: No FAMILY HISTORY Problem Relation Age of Onset Hypertension Mother other (blood clots) Mother Stroke Father MEDICATIONS: Current Outpatient Medications Medication Sig metoprolol succinate ER (TOPROL XL) 25 mg 24 hr tablet take 1/2 tablet by mouth once daily cilostazol (PLETAL) 100 mg tablet take 1 tablet by mouth twice a day lisinopril-hydroCHLOROthiazide (ZESTORETIC) 20-12.5 mg per tablet take 2 tablets by mouth once daily atorvastatin (LIPITOR) 40 mg tablet take 1 tablet by mouth once daily No current facility-administered medications for this visit. PHYSICAL EXAMINATION: VITALS: Ht 175.3 cm (5' 9) Wt 94.8 kg (209 lb) BMI 30.86 kg/m GENERAL: alert, no distress, normal affect RESPIRATORY: normal effort ABDOMEN: soft, non-tender GENITOURINARY: Inguinal: No lesions, adenopathy, or hernias Phallus: normal, circumcised, no lesions Meatus: orthotopic, patent, no discharge Scrotum: no lesions, normal rugae Testes: Descended, nontender, and no masses bilaterally L: nl R:nl Epididymides: L nl R nl Vas deferens: palpable bilaterally Varicocele: none WAYNE: 30 g prostate without nodularity or tenderness, normal anal sphincter tone. EXTREMITIES: warm, no dependent edema, no malformations SKIN: no abnormal bruising, no rashes, no cyanosis NEUROLOGIC: normal gait, good manual dexterity, no paralysis ASSESSMENT/PLAN: 1. Elevated PSA - ICD9: 790.93, ICD10: R97.20 - I discussed the implications of an elevated total PSA value. I discussed possible causes of elevated, including BPH, prostatitis and prostate cancer. I also discussed causes of false elevations of PSA values, including sexual activity, bicycle/motorcycle riding, vigorous exercise, and taking vitamins containing biotin 48-72 hours prior to PSA test.We talked about approaches which would include surveillance with PSA rechecks at regular intervals, MRI of prostate followed by biopsy, Transperineal biopsy, or standard TRUS Bx. After discussing the pros and cons of each approach we decided to proceed with obtaining a free PSA percentage to see his risk based on age. The below table lists the probability of finding prostate cancer upon needle biopsy, for men 50 years or older and total PSA concentrations from 4.0-10.0 ng/mL. Results should be interpreted within the broader clinical context. Free PSA(%) 50-59 years 60-69 years >69 years <11 49.2% 57.5% 64.5% 11-18 26.9% 33.9% 40.8% 19-25 18.3% 23.9% 29.7% >25 9.1% 12.2% 15.8% - PSA FREE Return in 1 month Consultation requested by Dr. Renetta Cline [address] [place] [phone] for an opinion regarding Mr. Meyer and my final recommendations will be communicated back to the requesting physician by way of shared Medical record or letter via US mail. Scotty Mejia MD, MS Associate Staff [facility] [place] [facility] documented in this encounterChillicothe [facility] Center11-29-2023 Nurse Note* Lydia Woodard Ma - 05/10/2023 1:02 PM EST Post void bladder scan completed. 129 ml residual remaining. Results reported to Dr. Mejia documented in this encounterChillicothe [facility] Center11-03-2023 Miscellaneous Notes* Telephone Encounter - Liliana Saldana MA - 04/14/2023 9:33 AM EDT pharm requesting refills: Last office visit 03/28/23. Last refill 09/30/22. Requested Prescriptions Pending Prescriptions Disp Refills metoprolol succinate ER (TOPROL XL) 25 mg 24 hr tablet [Pharmacy Med Name: METOPROLOL SUCC ER 25 MGTAB] 15 tablet 5 Sig: take 1/2 tablet by mouth once daily Please review and advise. Liliana Saldana MA documented in this encounterChillicothe [facility] Center10-18-2023 Miscellaneous Notes* Telephone Encounter - Liliana Saldana MA - 03/29/2023 8:56 AM EDT Patient notified , number given for dr. meier. Liliana Saldana MA * Telephone Encounter - Renetta Cline DO - 03/28/2023 8:41 PM EDT Please call pt- his prostate levels have gone up. I would like for him to see a urologist to discuss what his options are. I will refer him to Dr. Meier - attached Renetta Cline DO documented in this encounterChillicothe [facility] Center10-17-2023 History of Present illness Narrative* Renetta Cline DO - 03/28/2023 1:04 PM EDT Subjective Hypertension This is a chronic problem. The current episode started more than 1 year ago. The problem is unchanged. The problem is controlled. Pertinent negatives include no blurred vision, chest pain, headaches,malaise/fatigue, palpitations or shortness of breath. His PSA was elevated on 11/12/21 He has not had repeat blood work or seen a urologist since then He drinks 8-10 beers per day He smokes 1-1/2 PPD ALLERGIES No Known Allergies Current Outpatient Medications Medication Sig Dispense Refill cilostazol (PLETAL) 100 mg tablet take 1 tablet by mouth twice a day 60 tablet 5 lisinopril-hydroCHLOROthiazide (ZESTORETIC) 20-12.5 mg per tablet take 2 tablets by mouth once daily 60 tablet 5 atorvastatin (LIPITOR) 40 mg tablet take 1 tablet by mouth once daily 30 tablet 5 metoprolol succinate ER (TOPROL XL) 25 mg 24 hr tablet take 1/2 tablet by mouth once daily 15 tablet 5 aspirin, enteric coated (ASPIRIN, ENTERIC COATED) 81 mg EC tablet Take 81 mg by mouth once daily. (Patient not taking: Reported on 03/28/2023) No current facility-administered medications for this visit. ACTIVE PROBLEM LIST Closed Nondisplaced Fracture of Body of Right Calcaneus Obesity, Class I, Bmi 30-34.9 Essential Hypertension Mixed Hyperlipidemia Encounter for Screening Colonoscopy Heme Positive Stool Lvh (Left Ventricular Hypertrophy) Bmi 31.0-31.9,Adult Peripheral Artery Disease (Hcc) Sinus Tachycardia Smoker Amyloidosis, Unspecified Type (Hcc) Other Cardiomyopathy (Hcc) Social History Tobacco Use Smoking status: Every Day Packs/day: 1.50 Years: 56.00 Additional pack years: 0.00 Total pack years: 84.00 Types: Cigarettes Smokeless tobacco: Never Tobacco comments: start age: 17 Vaping Use Vaping Use: Never used Substance Use Topics Alcohol use: Yes Alcohol/week: 41.7 standard drinks of alcohol Types: 50 Cans of beer per week Comment: 4 beer/daily Drug use: No Family History Problem Relation Age of Onset Hypertension Mother other (blood clots) Mother Stroke Father Reviewed past medical history, family history and surgeries. All medications and supplements were reviewed with the patient. Review of Systems Constitutional: Negative for chills, diaphoresis, fever, malaise/fatigue and weight loss. HENT: Negative for ear pain and hearing loss. Eyes: Negative for blurred vision and double vision. Respiratory: Negative for cough and shortness of breath. Cardiovascular: Negative for chest pain, palpitations and leg swelling. Gastrointestinal: Negative for constipation, diarrhea and heartburn. Genitourinary: Negative for dysuria and frequency. Musculoskeletal: Negative for back pain, falls, joint pain and myalgias. Skin: Negative for itching and rash. Neurological: Negative for dizziness, weakness and headaches. Endo/Heme/Allergies: Does not bruise/bleed easily. Psychiatric/Behavioral: Negative for depression and substance abuse. The patient does not have insomnia. Objective BP 122/70 (BP Site: Left Arm, BP Position: Sitting, BP Cuff Size: Regular Adult) Pulse 86 Temp 36.7 C (98.1 F) Resp 16 Ht 175.3 cm (5' 9) Wt 94.8 kg (209 lb) SpO2 94% BMI 30.86 kg/m Physical Exam Constitutional: Appearance: Normal appearance. He is obese. HENT: Head: Normocephalic and atraumatic. Nose: Nose normal. Mouth/Throat: Mouth: Mucous membranes are moist. Dentition: Normal dentition. Eyes: General: Lids are normal. Extraocular Movements: Extraocular movements intact. Conjunctiva/sclera: Conjunctivae normal. Pupils: Pupils are equal, round, and reactive to light. Neck: Thyroid: No thyroid mass or thyromegaly. Vascular: No carotid bruit. Trachea: Phonation normal. Cardiovascular: Rate and Rhythm: Normal rate and regular rhythm. Heart sounds: Normal heart sounds. No murmur heard. No friction rub. No gallop. Pulmonary: Effort: Pulmonary effort is normal. Breath sounds: Normal breath sounds. No wheezing or rales. Abdominal: General: Bowel sounds are normal. There is no distension. Palpations: Abdomen is soft. There is no mass. Tenderness: There is no abdominal tenderness. Musculoskeletal: General: No swelling or tenderness. Normal range of motion. Cervical back: Normal range of motion and neck supple. No edema. Lymphadenopathy: Cervical: No cervical adenopathy. Skin: General: Skin is warm and dry. Findings: No erythema or rash. Nails: There is no clubbing. Neurological: Mental Status: He is alert and oriented to person, place, and time. Cranial Nerves: No cranial nerve deficit. Motor: Motor function is intact. Coordination: Coordination normal. Gait: Gait is intact. Psychiatric: Attention and Perception: Attention normal. Mood and Affect: Mood and affect normal. Speech: Speech normal. Behavior: Behavior normal. Behavior is cooperative. Thought Content: Thought content normal. Cognition and Memory: Cognition and memory normal. Judgment: Judgment normal. ASSESSMENT/PLAN: 1. Essential hypertension - ICD9: 401.9, ICD10: I10 (primary diagnosis) - Controlled - Recommend home blood pressure monitoring, to bring results to next visit - Encouraged sodium restriction, DASH or Mediterranean diet - Recommend regular aerobic exercise 2. Mixed hyperlipidemia - ICD9: 272.2, ICD10: E78.2 - Controlled - Continue current medications - Counseled on healthy diet and regular exercise 3. Thrombocytosis - ICD9: 238.71, ICD10: D75.839 Under the care of Dr. Rojas, line maintenance 4. Peripheral artery disease (HCC) - ICD9: 443.9, ICD10: I73.9 Takes pletal, under the care of Dr. Ashley 5. 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 History of elevated prostate specific antigen (PSA) - ICD9: V13.89, ICD10: Z87.898 Will recheck PSA, refer to urologist if it continues to be elevated 7. Screening for prostate cancer - ICD9: V76.44, ICD10: Z12.5 - PSA/PROSTSPECAG SCRN 8. Alcohol dependence, daily use (HCC) - ICD9: 303.91, ICD10: F10.20 9. Smoker - ICD9: 305.1, ICD10: F17.200 - Cessation encouraged. - Physiologic and physical aspects of tobacco addiction as well as strategies for quitting were discussed. - Counseling was given focusing on the harmful effects of this addiction especially given the patient's medical condition(s) which will be worsened because of the chemicals in tobacco. 10. Obesity, Class I, BMI 30-34.9 - ICD9: 278.00, ICD10: E66.9 Lifestyle modification recommended Renetta Cline DO documented in this encounterChillicothe [facility]08-31-2023 History of Present illness Narrative* Sandi Weiss - 02/09/2023 11:13 AM EDT POPULATION HEALTH NAVIGATION OUTREACH Action/FYI Patient Identified by Name and : NO Outreach Outcome/Action Unable to reach patient: Not accepting calls, [facility]. Did you use a PCP flex slot to schedule this appointment? N/A Reason for Outreach Care Gap or Scheduling/Wellness visits Payer: Payor: MEDICARE / Plan: MEDICARE A AND B / Product Type: Medicare / Care Gap Reviewed:: Annual Wellness visit Controlling Blood Pressure Reminder: Reminder note to check Health Maintenance for items below Health Maintenance items due: SHINGRIX VACCINE(1 of 2) Never done BP CONTROLLED (<130/80) due on 02/04/2022 Navigation Signature: Sandi Weiss February 09, 2023 11:13 AM documented in this encounterChillicothe [facility]08-23-2023 History of Present illness Narrative* Sandi Weiss - 02/01/2023 12:47 PM EDT POPULATION HEALTH NAVIGATION OUTREACH Action/FYI Patient Identified by Name and : NO Outreach Outcome/Action Unable to reach patient: Phone number not valid / voicemail full Patient is ACO attributed, needing BP FU appt. Did you use a PCP flex slot to schedule this appointment? N/A Reason for Outreach Care Gap or Scheduling/Wellness visits Payer: Payor: MEDICARE / Plan: MEDICARE A AND B / Product Type: Medicare / Care Gap Reviewed:: Annual Wellness visit Controlling Blood Pressure Reminder: Reminder note to check Health Maintenance for items below Health Maintenance items due: SHINGRIX VACCINE(1 of 2) Never done BP CONTROLLED (<130/80) due on 02/04/2022 Navigation Signature: Sandi Weiss February 01, 2023 12:48 PM documented in this encounterChillicothe [facility]07-14-2023 Miscellaneous Notes* Telephone Encounter - Yury Erwin MA - 12/23/2022 3:07 PM EDT pharmacy electronically requesting refills as follows: Last seen 09/26/22 . Last refill 04/01/22 . Requested Prescriptions Pending Prescriptions Disp Refills cilostazol (PLETAL) 100 mg tablet [Pharmacy Med Name: CILOSTAZOL 100 MG TABLET] 60 tablet 5 Sig: take 1 tablet by mouth twice a day Please review and advise. Yury Erwin MA documented in this encounterChillicothe [facility] Center06-07-2023 History of Present illness Narrative* Sreedhar Rojas MD - 11/16/2022 10:52 AM EDT HISTORY OF PRESENT ILLNESS: Lita Meyer is a 77 year old male referred for evaluation of thrombocytosis. Feels well. Labs reviewed, possible etiologies reviewed with patient. Platelets have been mildly elevated for several years at least. Ct reviewed also, spleen present, no enlarged. CLINICAL IMPRESSION: thrombocytosis RECOMMENDATION/PLAN: 1. Labs as ordered, follow up by phone next week. He will call to discuss. Written and verbal health teaching given to patient, patient verbalizes understanding and agrees with treatment plan. PAST MEDICAL HISTORY Diagnosis Date Essential hypertension LVH (left ventricular hypertrophy) Mixed hyperlipidemia Peripheral arterial disease (HCC) Sinus tachycardia Smoker PAST SURGICAL HISTORY Procedure Laterality Date NONE FAMILY HISTORY Problem Relation Age of Onset Hypertension Mother other (blood clots) Mother Stroke Father Social History Tobacco Use Smoking status: Every Day Packs/day: 1.50 Years: 56.00 Pack years: 84.00 Types: Cigarettes Smokeless tobacco: Never Tobacco comments: start age: 17 Vaping Use Vaping Use: Never used Substance Use Topics Alcohol use: Yes Alcohol/week: 41.7 standard drinks Types: 50 Cans of beer per week Comment: 4 beer/daily Drug use: No ALLERGIES: ALLERGIES No Known Allergies CURRENT OUTPATIENT MEDICATIONS: lisinopril-hydroCHLOROthiazide (ZESTORETIC) 20-12.5 mg per tablet take 2 tablets by mouth once daily atorvastatin (LIPITOR) 40 mg tablet take 1 tablet by mouth once daily metoprolol succinate ER (TOPROL XL) 25 mg 24 hr tablet take 1/2 tablet by mouth once daily cilostazol (PLETAL) 100 mg tablet Take 1 tablet by mouth twice daily. aspirin, enteric coated (ASPIRIN, ENTERIC COATED) 81 mg EC tablet Take 81 mg by mouth once daily. REVIEW OF SYSTEMS: GENERAL: No fever, night sweats, weight loss or malaise. All other reviewed and negative other than HPI. PHYSICAL EXAMINATION: VITAL SIGNS: BP 180/86 Pulse 116 Temp (Src) 99.1 (Temporal) Wt 210 lb 4.8 oz (95.4kg) SpO2 96% GENERAL APPEARANCE: Well appearing, in no acute distress, alert and oriented x3, well-hydrated, well nourished. I spent a total of 30 minutes on the date of the service which included preparing to see the patient, [id number] patient care, completing clinical documentation, obtaining and/or reviewing separately obtained history, counseling and educating the patient/family/caregiver, ordering medications, zayra ts, or procedures, independently interpreting results (not separately reported), and communicating results to the patient/family/caregiver. Electronically Signed: Sreedhar Rojas MD November 16, 2022 10:57 AM documented in this encounter[facility]23 Miscellaneous Notes* Telephone Encounter - Liliana Saldana MA - 10/17/2022 1:23 PM EDT Pharmacy requesting refills: Last office visit 09/26/2022 . Last refill 04/01/2022 nov none Requested Prescriptions Pending Prescriptions Disp Refills atorvastatin (LIPITOR) 40 mg tablet [Pharmacy Med Name: ATORVASTATIN 40 MG TABLET] 30 tablet 5 Sig: take 1 tablet by mouth once daily Please review and advise. Liliana Saldana MA documented in this encounterCh[facility]04-25-2023 Miscellaneous Notes* Telephone Encounter - Citlaly He MA - 10/04/2022 3:19 PM EDT Letter sent with labs and referral Citlaly He MA * Telephone Encounter - Renetta Cline DO - 10/04/2022 11:40 AM EDT Please send pt letter. He needs to make appt with Dr. Rojas, line maintenance, for elevated platelets. He also needs to make appt with Dr. Chaney, liquor inspector, for amyloidosis and cardiomyopathy andDr. Ashley for peripheral arterial disease. Thanks Renetta Cline DO * Telephone Encounter - Yury Erwin MA - 10/03/2022 9:51 AM EDT Tried to call patient, no answer and voicemail full. Yury Erwin MA * Telephone Encounter - Citlaly He MA - 09/30/2022 4:51 PM EDT VM box is full Citlaly He MA * Telephone Encounter - Renetta Cline DO - 09/30/2022 3:49 PM EDT Please call pt - blood work shows that his platelets are slightly high. The rest of the blood work is at target. I would like for him to see a blood specialist. I will refer him to Dr. Rojas in [place] - attached Renetta Cline DO documented in this encounterCh[facility]04-21-2023 Miscellaneous Notes* Telephone Encounter - Yury Erwin MA - 09/30/2022 9:52 AM EDT pharmacy electronically requesting refills as follows: Last seen 09/26/22 . Last refill 04/01/22 . Requested Prescriptions Pending Prescriptions Disp Refills metoprolol succinate ER (TOPROL XL) 25 mg 24 hr tablet [Pharmacy Med Name: METOPROLOL SUCC ER 25 MGTAB] 15 tablet 5 Sig: take 1/2 tablet by mouth once daily Please review and advise. Yury Erwin MA documented in this encounterCh[facility]ic[facility]04-17-2023 History of Present illness Narrative* Renetta Cline DO - 09/26/2022 1:54 PM EDT Subjective The history is provided by the patient. Hypertension This is a chronic problem. The current episode started more than 1 year ago. The problem is unchanged. Pertinent negatives include no blurred vision, chest pain, headaches, malaise/fatigue, palpitations or shortness of breath. Pt has a history of peripheral arterial disease and amyloidosis. He was under the care of Dr. Chaney and Dr. Ashley, and is on pletal He has not seen either provider since 2020 ALLERGIES No Known Allergies Current Outpatient Medications Medication Sig Dispense Refill metoprolol succinate ER (TOPROL XL) 25 mg 24 hr tablet take 1/2 tablet by mouth once daily 15 tablet 5 cilostazol (PLETAL) 100 mg tablet Take 1 tablet by mouth twice daily. 60 tablet 5 lisinopril-hydroCHLOROthiazide (PRINZIDE,ZESTORETIC) 20-12.5 mg per tablet Take 2 tablets by mouth once daily. 60 tablet 5 atorvastatin (LIPITOR) 40 mg tablet Take 1 tablet by mouth once daily. 30 tablet 5 aspirin, enteric coated (ASPIRIN, ENTERIC COATED) 81 mg EC tablet Take 81 mg by mouth once daily. No current facility-administered medications for this visit. ACTIVE PROBLEM LIST Closed Nondisplaced Fracture of Body of Right Calcaneus Obesity, Class I, Bmi 30-34.9 Essential Hypertension Mixed Hyperlipidemia Encounter for Screening Colonoscopy Heme Positive Stool Lvh (Left Ventricular Hypertrophy) Bmi 31.0-31.9,Adult Peripheral Artery Disease (Hcc) Sinus Tachycardia Smoker Social History Tobacco Use Smoking status: Every Day Packs/day: 1.50 Years: 56.00 Pack years: 84.00 Types: Cigarettes Smokeless tobacco: Never Tobacco comments: start age: 17 Vaping Use Vaping Use: Never used Substance Use Topics Alcohol use: Yes Alcohol/week: 41.7 standard drinks Types: 50 Cans of beer per week Comment: 4 beer/daily Drug use: No Family History Problem Relation Age of Onset Hypertension Mother other (blood clots) Mother Stroke Father Reviewed past medical history, family history and surgeries. All medications and supplements were reviewed with the patient. Review of Systems Constitutional: Negative for chills, diaphoresis, fever, malaise/fatigue and weight loss. HENT: Negative for ear pain and hearing loss. Eyes: Negative for blurred vision and double vision. Respiratory: Negative for cough and shortness of breath. Cardiovascular: Negative for chest pain, palpitations and leg swelling. Gastrointestinal: Negative for constipation, diarrhea and heartburn. Genitourinary: Negative for dysuria and frequency. Musculoskeletal: Negative for back pain, falls, joint pain and myalgias. Skin: Negative for itching and rash. Neurological: Negative for dizziness, weakness and headaches. Endo/Heme/Allergies: Does not bruise/bleed easily. Psychiatric/Behavioral: Negative for depression and substance abuse. The patient does not have insomnia. Objective BP 126/68 (BP Site: Left Arm, BP Position: Sitting, BP Cuff Size: Regular Adult) Pulse 100 Temp36.8 C (98.2 F) Resp 16 Ht 175.3 cm (5' 9) Wt 95.7 kg (211 lb) SpO2 96% BMI 31.16 kg/m Physical Exam Constitutional: Appearance: Normal appearance. HENT: Head: Normocephalic and atraumatic. Nose: Nose normal. Mouth/Throat: Mouth: Mucous membranes are moist. Dentition: Normal dentition. Eyes: General: Lids are normal. Extraocular Movements: Extraocular movements intact. Conjunctiva/sclera: Conjunctivae normal. Pupils: Pupils are equal, round, and reactive to light. Neck: Thyroid: No thyroid mass or thyromegaly. Vascular: No carotid bruit. Trachea: Phonation normal. Cardiovascular: Rate and Rhythm: Normal rate and regular rhythm. Heart sounds: Normal heart sounds. No murmur heard. No friction rub. No gallop. Pulmonary: Effort: Pulmonary effort is normal. Breath sounds: Normal breath sounds. No wheezing or rales. Abdominal: General: Bowel sounds are normal. There is no distension. Palpations: Abdomen is soft. There is no mass. Tenderness: There is no abdominal tenderness. Musculoskeletal: General: No swelling or tenderness. Normal range of motion. Cervical back: Normal range of motion and neck supple. No edema. Lymphadenopathy: Cervical: No cervical adenopathy. Skin: General: Skin is warm and dry. Findings: No erythema or rash. Nails: There is no clubbing. Neurological: Mental Status: He is alert and oriented to person, place, and time. Cranial Nerves: No cranial nerve deficit. Motor: Motor function is intact. Coordination: Coordination normal. Gait: Gait is intact. Psychiatric: Attention and Perception: Attention normal. Mood and Affect: Mood and affect normal. Speech: Speech normal. Behavior: Behavior normal. Behavior is cooperative. Thought Content: Thought content normal. Cognition and Memory: Cognition and memory normal. Judgment: Judgment normal. ASSESSMENT/PLAN: 1. Essential hypertension - ICD9: 401.9, ICD10: I10 (primary diagnosis) - good control - Recommended regular aerobic exercise. - Recommend home blood pressure monitoring, to bring results in on next visit - Goal of BP <130/80 - CBC - COMP METABOLIC PANEL - LIPID PANEL BASIC 2. Amyloidosis, unspecified type (HCC) - ICD9: 277.30, ICD10: E85.9 Will encourage pt to return to see Dr. Chaney 3. Other cardiomyopathy (HCC) - ICD9: 425.4, ICD10: I42.8 Will encourage pt to return to see Dr. Chaney 4. Peripheral artery disease (HCC) - ICD9: 443.9, ICD10: I73.9 Continue pletal Will encourage to return to Dr. Ashley for f/u Renetta Cline DO documented in this encounterCh[facility]10-21-2022 Miscellaneous Notes* Telephone Encounter - Citlaly He MA - 04/01/2022 9:49 AM EDT Pharmacy requesting refills as follows: Last Office Visit 10/01/21. Last Refill 10/01/21. Requested Prescriptions Pending Prescriptions Disp Refills metoprolol succinate ER (TOPROL XL) 25 mg 24 hr tablet [Pharmacy Med Name: METOPROLOL SUCC ER 25 MGTAB] 15 tablet 5 Sig: take 1/2 tablet by mouth once daily cilostazol (PLETAL) 100 mg tablet 60 tablet 5 Sig: Take 1 tablet by mouth twice daily. lisinopril-hydroCHLOROthiazide (PRINZIDE,ZESTORETIC) 20-12.5 mg per tablet 60 tablet 5 Sig: Take 2 tablets by mouth once daily. atorvastatin (LIPITOR) 40 mg tablet 30 tablet 5 Sig: Take 1 tablet by mouth once daily. Please review and advise. Citlaly He MA documented in this encounterCh[facility]06-29-2022 Miscellaneous Notes* Telephone Encounter - Liliana Saldana MA - 12/08/2021 7:48 AM EDT Another message left . Letter sent. Liliana Saldana MA * Telephone Encounter - Liliana Saldana MA - 12/07/2021 2:07 PM EDT Left message for patient to contact office. Liliana Saldana MA * Telephone Encounter - Liliana Saldana MA - 12/06/2021 8:01 AM EDT Mail box is still full. Liliana Saldana MA * Telephone Encounter - Liliana Saldana MA - 12/03/2021 8:03 AM EDT Mail box is full and cannot accept any messages at this time. Liliana Saldana MA * Telephone Encounter - Renetta Cline DO - 12/02/2021 9:50 PM EDT Please call pt - blood work shows slightly elevated PSA. I will refer him to a urologist - Dr. Meier in [place]. Referral attached Rest of blood work is normal Renetta Cline DO documented in this encounterCh[facility]04-22-2022 History of Present illness Narrative* Renetta Cline DO - 10/01/2021 11:48 AM EDT Subjective The history is provided by the patient. Hypertension This is a chronic problem. The current episode started more than 1 year ago. The problem is unchanged. The problem is controlled. Pertinent negatives include no blurred vision, chest pain, headaches,malaise/fatigue, palpitations or shortness of breath. There are no associated agents to hypertension. Risk factors for coronary artery disease include male gender and obesity. Pt is here to transfer care from Dr. Carney to me He does not eat as many fruits and vegetables as he should He would like to know if he should take a multivitamin ALLERGIES No Known Allergies Current Outpatient Medications Medication Sig Dispense Refill cilostazol (PLETAL) 100 mg tablet Take 1 tablet by mouth twice daily. 60 tablet 1 lisinopril-hydroCHLOROthiazide (PRINZIDE,ZESTORETIC) 20-12.5 mg per tablet Take 2 tablets by mouth once daily. 60 tablet 1 metoprolol succinate ER (TOPROL XL) 25 mg 24 hr tablet Take 0.5 tablets by mouth once daily. 15 tablet 1 atorvastatin (LIPITOR) 40 mg tablet take 1 tablet by mouth once daily 30 tablet 5 aspirin, enteric coated (ASPIRIN, ENTERIC COATED) 81 mg EC tablet Take 81 mg by mouth once daily. No current facility-administered medications for this visit. ACTIVE PROBLEM LIST Closed Nondisplaced Fracture of Body of Right Calcaneus Obesity, Class I, Bmi 30-34.9 Essential Hypertension Mixed Hyperlipidemia Encounter for Screening Colonoscopy Heme Positive Stool Lvh (Left Ventricular Hypertrophy) Pvd (Peripheral Vascular Disease) ([facility]) Bmi 30.0-30.9,Adult Social History Tobacco Use Smoking status: Current Every Day Smoker Packs/day: 1.50 Years: 56.00 Pack years: 84.00 Types: Cigarettes Smokeless tobacco: Never Used Tobacco comment: start age: 17 Vaping Use Vaping Use: Never used Substance Use Topics Alcohol use: Yes Alcohol/week: 41.7 standard drinks Types: 50 Cans of beer per week Comment: 4 beer/daily Drug use: No Family History Problem Relation Age of Onset Hypertension Mother other (blood clots) Mother Stroke Father Reviewed past medical history, family history and surgeries. All medications and supplements were reviewed with the patient. Pt sees the following specialists: Dr. Ashley, vascular, Dr. Chaney, liquor inspector Review of Systems Constitutional: Negative for chills, diaphoresis, fever, malaise/fatigue and weight loss. HENT: Negative for ear pain and hearing loss. Eyes: Negative for blurred vision and double vision. Respiratory: Negative for cough and shortness of breath. Cardiovascular: Negative for chest pain, palpitations and leg swelling. Gastrointestinal: Negative for constipation, diarrhea and heartburn. Genitourinary: Negative for dysuria and frequency. Musculoskeletal: Negative for back pain, falls, joint pain and myalgias. Skin: Negative for itching and rash. Neurological: Negative for dizziness, weakness and headaches. Endo/Heme/Allergies: Does not bruise/bleed easily. Psychiatric/Behavioral: Negative for depression and substance abuse. The patient does not have insomnia. Objective BP 120/68 (BP Site: Left Arm, BP Position: Sitting, BP Cuff Size: Regular Adult) Pulse 85 Temp 37.1 C (98.7 F) Resp 16 Ht 175.3 cm (5' 9) Wt 94.6 kg (208 lb 9.6 oz) SpO2 95% BMI 30.80 kg/m Physical Exam Constitutional: Appearance: Normal appearance. HENT: Head: Normocephalic and atraumatic. Nose: Nose normal. Mouth/Throat: Mouth: Mucous membranes are moist. Dentition: Normal dentition. Eyes: General: Lids are normal. Extraocular Movements: Extraocular movements intact. Conjunctiva/sclera: Conjunctivae normal. Pupils: Pupils are equal, round, and reactive to light. Neck: Thyroid: No thyroid mass or thyromegaly. Vascular: No carotid bruit. Trachea: Phonation normal. Cardiovascular: Rate and Rhythm: Normal rate and regular rhythm. Heart sounds: Normal heart sounds. No murmur heard. No friction rub. No gallop. Pulmonary: Effort: Pulmonary effort is normal. Breath sounds: Normal breath sounds. No wheezing or rales. Abdominal: General: Bowel sounds are normal. There is no distension. Palpations: Abdomen is soft. There is no mass. Tenderness: There is no abdominal tenderness. Musculoskeletal: General: No swelling or tenderness. Normal range of motion. Cervical back: Normal range of motion and neck supple. No edema. Lymphadenopathy: Cervical: No cervical adenopathy. Skin: General: Skin is warm and dry. Findings: No erythema or rash. Nails: There is no clubbing. Neurological: Mental Status: He is alert and oriented to person, place, and time. Cranial Nerves: No cranial nerve deficit. Motor: Motor function is intact. Coordination: Coordination normal. Gait: Gait is intact. Psychiatric: Attention and Perception: Attention normal. Mood and Affect: Mood and affect normal. Speech: Speech normal. Behavior: Behavior normal. Behavior is cooperative. Thought Content: Thought content normal. Cognition and Memory: Cognition and memory normal. Judgment: Judgment normal. ASSESSMENT/PLAN: 1. Essential hypertension - ICD9: 401.9, ICD10: I10 (primary diagnosis) Continue current meds - METOPROLOL SUCCINATE ER 25 MG TABLET,EXTENDED RELEASE 24 HR - CBC - COMP METABOLIC PANEL - LIPID PANEL BASIC - LISINOPRIL 20 MG-HYDROCHLOROTHIAZIDE 12.5 MG TABLET 2. Screening for prostate cancer - ICD9: V76.44, ICD10: Z12.5 - Counseled on healthy diet and regular exercise - PSA/PROSTSPECAG SCRN 3. Sinus tachycardia - ICD9: 427.89, ICD10: R00.0 - METOPROLOL SUCCINATE ER 25 MG TABLET,EXTENDED RELEASE 24 HR 4. Peripheral artery disease (HCC) - ICD9: 443.9, ICD10: I73.9 - CILOSTAZOL 100 MG TABLET 5. Obesity, Class I, BMI 30-34.9 - ICD9: 278.00, ICD10: E66.9 Lifestyle modification recommended 6. BMI 30.0-30.9,adult - ICD9: V85.30, ICD10: Z68.30 Lifestyle modification recommended Renetta Cline DO documented in this encounter[address]18-2018 History of Past illness Narrative* Problem Noted Date Resolved Date Chronic ulcer of left foot 12/27/201708/14 documented as of this encounter (statuses as of 10/15/2021) [place] [id number] History of Past illness Narrative* Problem Noted Date Resolved Date Chronic ulcer of left foot 12/27/201708/14 documented as of this encounter (statuses as of 12/08/2021) [place] [address] History of Past illness Narrative* Problem Noted Date Resolved Date Chronic ulcer of left foot 12/27/201708/14 documented as of this encounter (statuses as of 04/01/2022) [place] [address] History of Past illness Narrative* Problem Noted Date Resolved Date Chronic ulcer of left foot 12/27/201708/14 documented as of this encounter (statuses as of 09/30/2022) [place] [address] History of Past illness Narrative* Problem Noted Date Resolved Date Chronic ulcer of left foot 12/27/201708/14 documented as of this encounter (statuses as of 10/04/2022) [place] [address] History of Past illness Narrative* Problem Noted Date Resolved Date Chronic ulcer of left foot 12/27/201708/14 documented as of this encounter (statuses as of 10/05/2022) [place] [address] History of Past illness Narrative* Problem Noted Date Resolved Date Chronic ulcer of left foot 12/27/201708/14 documented as of this encounter (statuses as of 10/17/2022) [place] [address] History of Past illness Narrative* Problem Noted Date Resolved Date Chronic ulcer of left foot 12/27/201708/14 documented as of this encounter (statuses as of 11/16/2022) [address] History of Past illness Narrative* Problem Noted Date Diagnosed Date Resolved Date Chronic ulcer of left foot 12/27/2017 0 08/14/2018 documented as of this encounter (statuses as of 12/26/2022) [address]18-2018 History of Past illness Narrative* Problem Noted Date Diagnosed Date Resolved Date Chronic ulcer of left foot 12/27/2017 0 08/14/2018 documented as of this encounter (statuses as of 02/01/2023) [address] History of Past illness Narrative* Problem Noted Date Diagnosed Date Resolved Date Chronic ulcer of left foot 12/27/2017 0 08/14/2018 documented as of this encounter (statuses as of 02/09/2023) [address] History of Past illness Narrative* Problem Noted Date Diagnosed Date Resolved Date Chronic ulcer of left foot 12/27/2017 0 08/14/2018 documented as of this encounter (statuses as of 03/28/2023) [place] [id number] History of Past illness Narrative* Problem Noted Date Diagnosed Date Resolved Date Chronic ulcer of left foot 12/27/2017 0 08/14/2018 documented as of this encounter (statuses as of 03/29/2023) [address]-2018 History of Past illness Narrative* Problem Noted Date Diagnosed Date Resolved Date Chronic ulcer of left foot 12/27/2017 0 08/14/2018 documented as of this encounter (statuses as of 04/14/2023) [place] [id number] History of Past illness Narrative* Problem Noted Date Diagnosed Date Resolved Date Chronic ulcer of left foot 12/27/2017 0 08/14/2018 documented as of this encounter (statuses as of 05/10/2023) [address] History of Past illness Narrative* Problem Noted Date Diagnosed Date Resolved Date Chronic ulcer of left foot 12/27/2017 0 08/14/2018 documented as of this encounter (statuses as of 07/19/2023) [place] [id number] History of Past illness Narrative* Problem Noted Date Diagnosed Date Resolved Date Chronic ulcer of left foot 12/27/2017 0 08/14/2018 documented as of this encounter (statuses as of 08/31/2023) [facility] note* Diagnosis Essential hypertension- Primary Unspecified essential hypertension Screening for prostate cancer Special screening for malignant neoplasm of prostate Sinus tachycardia Other specified cardiac dysrhythmias Peripheral artery disease (HCC) Peripheral vascular disease, unspecified Obesity, Class I, BMI 30-34.9 Obesity, unspecified BMI 30.0-30.9,adult Body Mass Index 30.0-30.9, adult documented in this encounter [facility] note* Diagnosis Elevated PSA- Primary Elevated prostate specific antigen (PSA) documented in this encounter [facility] note* Diagnosis Sinus tachycardia Other specified cardiac dysrhythmias Essential hypertension Unspecified essential hypertension Peripheral artery disease (HCC) Peripheral vascular disease, unspecified Mixed hyperlipidemia documented in this encounter [facility] note* Diagnosis Sinus tachycardia Other specified cardiac dysrhythmias Essential hypertension Unspecified essential hypertension documented in this encounter [facility] note* Diagnosis Essential hypertension- Primary Unspecified essential hypertension Amyloidosis, unspecified type (HCC) Other cardiomyopathy (HCC) Peripheral artery disease (HCC) Peripheral vascular disease, unspecified documented in this encounter [facility] note* Diagnosis Thrombocytosis- Primary Essential thrombocythemia documented in this encounter [facility]* Diagnosis Mixed hyperlipidemia documented in this encounter [facility]* Diagnosis Thrombocytosis- Primary 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) documented in this encounter [facility] note* Diagnosis Peripheral artery disease (HCC) Peripheral vascular disease, unspecified documented in this encounter [facility] note* Diagnosis Essential hypertension- Primary Unspecified essential hypertension Mixed hyperlipidemia Thrombocytosis Essential thrombocythemia Peripheral artery disease (HCC) Peripheral vascular disease, unspecified Amyloidosis, unspecified type (HCC) History of elevated prostate specific antigen (PSA) Personal history of other specified diseases Screening for prostate cancer Special screening for malignant neoplasm of prostate Alcohol dependence, daily use (HCC) Other and unspecified alcohol dependence, continuous drinking behavior Smoker Tobacco use disorder Obesity, Class I, BMI 30-34.9 Obesity, unspecified documented in this encounter [facility] note* Diagnosis Elevated PSA- Primary Elevated prostate specific antigen (PSA) documented in this encounter [facility] note* Diagnosis Sinus tachycardia Other specified cardiac dysrhythmias Essential hypertension Unspecified essential hypertension documented in this encounter [facility]* Diagnosis Elevated PSA- Primary Elevated prostate specific antigen (PSA) [facility] Diagnosis Mixed hyperlipidemia Peripheral artery disease (HCC) Peripheral vascular disease, unspecified documented in this encounter [facility]* Diagnosis Elevated PSA- Primary Elevated prostate specific antigen (PSA) documented in this encounter [facility]* Diagnosis Elevated PSA- Primary Elevated prostate specific antigen (PSA) Benign prostatic hyperplasia without lower urinary tract symptoms documented in this encounter [facility]* Diagnosis Sinus tachycardia Other specified cardiac dysrhythmias Essential hypertension Unspecified essential hypertension documented in this encounter [facility] Diagnosis Peripheral artery disease (HCC) Peripheral vascular disease, unspecified Sinus tachycardia Other specified cardiac dysrhythmias Essential hypertension Unspecified essential hypertension Mixed hyperlipidemia documented in this encounter [facility]* Diagnosis Essential hypertension- Primary Unspecified essential hypertension Mixed hyperlipidemia Smoker Tobacco use disorder Obesity, Class I, BMI 30-34.9 Obesity, unspecified documented in this encounter [facility]* Diagnosis Essential hypertension Unspecified essential hypertension documented in this encounter [facility]* Diagnosis Peripheral artery disease (HCC) Peripheral vascular disease, unspecified Mixed hyperlipidemia [facility] Diagnosis Essential hypertension Unspecified essential hypertension Sinus tachycardia Other specified cardiac dysrhythmias documented in this encounter [facility]* Diagnosis Medicare annual wellness visit, subsequent- Primary Routine general medical examination at a health care facility Peripheral artery disease Peripheral vascular disease, unspecified Essential hypertension Unspecified essential hypertension Mixed hyperlipidemia Smoker Tobacco use disorder Obesity, Class I, BMI 30-34.9 Obesity, unspecified [facility] Diagnosis Essential hypertension Unspecified essential hypertension Sinus tachycardia Other specified cardiac dysrhythmias documented in this encounter [facility]* Diagnosis Right carotid bruit- Primary Other symptoms involving cardiovascular system Peripheral artery disease Peripheral vascular disease, unspecified Primary hypertension Unspecified essential hypertension Mixed hyperlipidemia Nicotine dependence, cigarettes, uncomplicated Stenosis of left subclavian artery Atherosclerosis of other specified arteries documented in this encounter [facility]* Diagnosis Peripheral artery disease Peripheral vascular disease, unspecified Mixed hyperlipidemia Essential hypertension Unspecified essential hypertension Sinus tachycardia Other specified cardiac dysrhythmias documented in this encounter [facility]* Diagnosis Hemispheric carotid artery syndrome documented in this encounter [facility]* Diagnosis Dyspnea on exertion- Primary Other dyspnea and respiratory abnormality Hemispheric carotid artery syndrome Right carotid bruit Other symptoms involving cardiovascular system Tobacco use Tobacco use disorder Encounter for screening for cardiovascular disorders Screening for other and unspecified cardiovascular conditions Carotid stenosis, asymptomatic, bilateral Hemispheric carotid artery syndrome documented in this encounter [facility] note* Diagnosis Encounter for screening for cardiovascular disorders- Primary Screening for other and unspecified cardiovascular conditions Dyspnea on exertion Other dyspnea and respiratory abnormality 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 Atherosclerosis of other specified arteries Essential hypertension Unspecified essential hypertension Mixed hyperlipidemia LVH (left ventricular hypertrophy) Cardiomegaly Peripheral artery disease Peripheral vascular disease, unspecified Smoker Tobacco use disorder Alcohol dependence, daily use (HCC) Other and unspecified alcohol dependence, continuous drinking behavior Obesity, Class I, BMI 30-34.9 Obesity, unspecified Sinus tachycardia Other specified cardiac dysrhythmias documented in this encounter [facility] note* Diagnosis Encounter for screening for cardiovascular disorders Screening for other and unspecified cardiovascular conditions Silent myocardial ischemia Other specified forms of chronic ischemic heart disease documented in this encounter [facility] note* Diagnosis Right carotid bruit Other symptoms involving cardiovascular system Dyspnea on exertion Other dyspnea and respiratory abnormality documented in this encounter [facility] note* Diagnosis Carotid stenosis, asymptomatic, bilateral- Primary Stenosis of left subclavian artery Atherosclerosis of other specified arteries Peripheral artery disease Peripheral vascular disease, unspecified Mixed hyperlipidemia documented in this encounter [facility] noteNo assessment information [facility]Son[facility] Work Phone: [employer] for referral (narrative)No reason for referral information availableSonoma Valley Hospital Work Phone: [employer] for visit Narrative* MRI/CT (Routine) - Closed Specialty Diagnoses / Procedures Referred By Contac t Referred To Contact CT IMAGING Diagnoses Hemispheric carotid artery syndrome Procedures CTA NECK W IVCON CT ANGIOGRAPHY NECK W/CONTRAST/NONCONTRAST Anthony Egan MD [address] [place] [address] Phone: tel: fax: [place] [id number] Referral ID Status Reason Start Date Expiration Date V isits Requested Visits Authorized [id number] Closed Auto-Generate d Referral 12/19/2024 01/18/2026 1 1 [facility] for visit Narrative* Diagnostic Procedure Only (Routine) - Closed Specialty Diagnoses / Procedures Referred By Contac t Referred To Contact [facility] Diagnoses Encounter for screening for cardiovascular disorders Silent myocardial ischemia Procedures NM CARDIAC PERF STRESS/PHARM MYOCARDIAL SPECT [place] [address] [place] [address] Phone: tel: fax: [facility] [address] [place], [place] [id number] Phone: tel: Referral ID Status Reason Start Date Expiration Date V isits Requested Visits Authorized [id number] Closed Auto-Generate d Referral 01/28/2025 02/27/2026 1 1 [facility] for visit Narrative* Diagnostic Procedure Only (Routine) - Closed Specialty Diagnoses / Procedures Referred By Ella t Referred To Contact [facility] FUNCTIONAL [facility]AGING Diagnoses Encounter for screening for cardiovascular disorders Silent myocardial ischemia Procedures NM CARDIAC PERF STRESS/PHARM MYOCARDIAL SPECT [place]IP[place] [address] [place] [address] Phone: tel: fax: [facility] [address] [place] [address] Phone: tel: Referral ID Status Reason Start Date Expiration Date V isits Requested Visits Authorized [id number] Closed Auto-Generate d Referral 01/28/2025 02/27/2026 1 1 [facility] for visit Narrative* Outpatient Procedure (Routine) - Closed Specialty Diagnoses / Procedures Referred By Contac t Referred To Contact [facility] Diagnoses Right carotid bruit Dyspnea on exertion Procedures ECHO ECHO TTHRC R-T 2D W/WOM-MODE COMPL SPEC&COLR D Anthony Egan MD [address] [place] [address] Phone: tel: fax: [facility] [address] [place] [address] Referral ID Status Reason Start Date Expiration Date V isits Requested Visits Authorized [id number] Closed Auto-Generate d Referral 12/19/2024 12/19/2025 1 1 [facility] Summary Purpose Family History No Family History Records FoundNo Family History Records FoundNo Family History Records FoundNo Family History Records FoundNo Family History Records Found Advance Directives No Advanced Directives Records FoundDocuments on File Type Date 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 Advance Directive(s) Advance Directive(s) 02/02/2018 2:55 PM Documents on File Type Date Recorded 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 Advance Directive(s) Advance Directive(s) 02/02/2018 2:55 PM Documents on File Type Date Recorded 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 60-74 MINUTES Renetta Cline, DO [address] [place] [place] [address] Kim Meier Jr., MD [address] [place] [address] Referral ID Status Reason Start Date Expiration Date Visits Requested Visits Authorized [id number] Authorized PCP Requested Referral 12/02/2021 12/02/2022 1 1 Specialty Diagnoses / Procedures Referred By Contac t Referred To Contact Hematology/Oncology / [facility] Department Diagnoses Thrombocytosis Procedures CONSULT TO HEMATOLOGY/ONCOLOGY OFFICE/OUTPATIENT [facility] 60-74 MINUTES Renetta Clien, DO [address] [place] [address] Sreedhar Rojas MD [address] [place] [address] Referral ID Status Reason Start Date Expiration Date Visits Requested Visits Authorized [id number] Authorized PCP Requested Referral 09/30/2022 09/30/2023 1 1 Specialty Diagnoses / Procedures Referred By Contac t Referred To Contact Diagnoses Elevated PSA Procedures CONSULT TO UROLOGY OFFICE/OUTPATIENT [facility] 60-74 MINUTES Renetta Cline, DO [address] [place] [address] Kim Meier Jr., MD [address] [place] [address] Referral ID Status Reason Start Date Expiration Date Visits Requested Visits Authorized [id number] Authorized PCP Requested Referral 3 03/27/2024 1 1 Chief Complaint and Reason for Visit Chief Complaint Admit Date Carotid Stenosis March 19, 2025 2: 44pm Chief Complaint Admit Date Carotid Stenosis March 19, 2025 2: 44pm Pre-Op Cardiovasc. Assessment, FOR LICE, SEE NOTE March 25, 2025 2:43pm Reason for Visit Admit Date Bilateral carotid artery stenosis Octobe r 2024 2:44pm Acquired left ventricular outflow tract obstruction March 25, 2025 2:43pm Essential (primary) hypertension March 25, 2025 2:43pm LVH (left ventricular hypertrophy) Octob er 2024 2:43pm Mixed hyperlipidemia March 25, 2025 2:43pm Pre-op evaluation March 25, 2025 2 :43pm Smoker March 25, 2025 2 :43pm Bilateral carotid artery stenosis Octobe r 2024 2:43pm Additional Source Comments (unrecognized sect ion and content) No Status Records FoundNo Status Records FoundNo Status Records FoundNo Status Records FoundNo Status Records Found INFORMATION SOURCE (unrecogn ized section and content) DATE CREATED AUTHOR 08/14/2019 [facility] DATE CREATED AUTHOR AUTHOR'S ORGANIZ ATION 02/01/2025 [facility] DATE CREATED AUTHOR AUTHOR'S ORGANIZ ATION 02/16/2025 [facility] DATE CREATED AUTHOR AUTHOR'S ORGANIZ ATION 04/19/2025 [facility] DATE CREATED AUTHOR AUTHOR'S ORGANIZ ATION 04/20/2025 [facility] Source Comments (unrecognize d section and content) In the event this informatio n is protected by the Federal Confidentiality of Alcohol and Drug Abuse Patient Records regulations: The Federal rules restrict any use of the information to criminally investigate or prosecute any alcohol or drug abuse patient.[facility] the event this information is protected by the Federal Confidentiality of Alcohol and Drug Abuse Patient Records regulations: The Federal rules restrict any use of the information to criminally investigate or prosecute any alcohol or drug abuse patient.[facility] the event this information is protected by the Federal Confidentiality of Alcohol and Drug Abuse Patient Records regulations: The Federal rules restrict any use of the information to criminally investigate or prosecute any alcohol or drug abuse patient.[facility] Center[facility] the event this information is protected by the Federal Confidentiality of Alcohol and Drug Abuse Patient Records regulations: The Federal rules restrict any use of the information to criminally investigate or prosecute any alcohol or drug abuse patient.[facility] Center[facility] the event this information is protected by the Federal Confidentiality of Alcohol and Drug Abuse Patient Records regulations: The Federal rules restrict any use of the information to criminally investigate or prosecute any alcohol or drug abuse patient.[facility] CenterIn the event this information is protected by the Federal Confidentiality of Alcohol and Drug Abuse Patient Records regulations: The Federal rules restrict any use of the information to criminally investigate or prosecute any alcohol or drug abuse patient.[facility] CenterIn the event this information is protected by the Federal Confidentiality of Alcohol and Drug Abuse Patient Records regulations: The Federal rules restrict any use of the information to criminally investigate or prosecute any alcohol or drug abuse patient.[facility] Center[facility] the event this information is protected by the Federal Confidentiality of Alcohol and Drug Abuse Patient Records regulations: The Federal rules restrict any use of the information to criminally investigate or prosecute any alcohol or drug abuse patient.[facility] Center[facility] the event this information is protected by the Federal Confidentiality of Alcohol and Drug Abuse Patient Records regulations: The Federal rules restrict any use of the information to criminally investigate or prosecute any alcohol or drug abuse patient.[facility] Center[facility] the event this information is protected by the Federal Confidentiality of Alcohol and Drug Abuse Patient Records regulations: The Federal rules restrict any use of the information to criminally investigate or prosecute any alcohol or drug abuse patient.[facility] CenterIn the event this information is protected by the Federal Confidentiality of Alcohol and Drug Abuse Patient Records regulations: The Federal rules restrict any use of the information to criminally investigate or prosecute any alcohol or drug abuse patient.[facility] Center[facility] the event this information is protected by the Federal Confidentiality of Alcohol and Drug Abuse Patient Records regulations: The Federal rules restrict any use of the information to criminally investigate or prosecute any alcohol or drug abuse patient.[facility] Center[facility] the event this information is protected by the Federal Confidentiality of Alcohol and Drug Abuse Patient Records regulations: The Federal rules restrict any use of the information to criminally investigate or prosecute any alcohol or drug abuse patient.[facility] Center[facility] the event this information is protected by the Federal Confidentiality of Alcohol and Drug Abuse Patient Records regulations: The Federal rules restrict any use of the information to criminally investigate or prosecute any alcohol or drug abuse patient.[facility] CenterIn the event this information is protected by the Federal Confidentiality of Alcohol and Drug Abuse Patient Records regulations: The Federal rules restrict any use of the information to criminally investigate or prosecute any alcohol or drug abuse patient.[facility] CenterIn the event this information is protected by the Federal Confidentiality of Alcohol and Drug Abuse Patient Records regulations: The Federal rules restrict any use of the information to criminally investigate or prosecute any alcohol or drug abuse patient.[facility] CenterIn the event this information is protected by the Federal Confidentiality of Alcohol and Drug Abuse Patient Records regulations: The Federal rules restrict any use of the information to criminally investigate or prosecute any alcohol or drug abuse patient.[facility] CenterIn the event this information is protected by the Federal Confidentiality of Alcohol and Drug Abuse Patient Records regulations: The Federal rules restrict any use of the information to criminally investigate or prosecute any alcohol or drug abuse patient.[facility] CenterIn the event this information is protected by the Federal Confidentiality of Alcohol and Drug Abuse Patient Records regulations: The Federal rules restrict any use of the information to criminally investigate or prosecute any alcohol or drug abuse patient.[facility] CenterIn the event this information is protected by the Federal Confidentiality of Alcohol and Drug Abuse Patient Records regulations: The Federal rules restrict any use of the information to criminally investigate or prosecute any alcohol or drug abuse patient.[facility] CenterIn the event this information is protected by the Federal Confidentiality of Alcohol and Drug Abuse Patient Records regulations: The Federal rules restrict any use of the information to criminally investigate or prosecute any alcohol or drug abuse patient.[facility] CenterIn the event this information is protected by the Federal Confidentiality of Alcohol and Drug Abuse Patient Records regulations: The Federal rules restrict any use of the information to criminally investigate or prosecute any alcohol or drug abuse patient.[facility] CenterIn the event this information is protected by the Federal Confidentiality of Alcohol and Drug Abuse Patient Records regulations: The Federal rules restrict any use of the information to criminally investigate or prosecute any alcohol or drug abuse patient.[facility] CenterIn the event this information is protected by the Federal Confidentiality of Alcohol and Drug Abuse Patient Records regulations: The Federal rules restrict any use of the information to criminally investigate or prosecute any alcohol or drug abuse patient.[facility] CenterIn the event this information is protected by the Federal Confidentiality of Alcohol and Drug Abuse Patient Records regulations: The Federal rules restrict any use of the information to criminally investigate or prosecute any alcohol or drug abuse patient.[facility] CenterIn the event this information is protected by the Federal Confidentiality of Alcohol and Drug Abuse Patient Records regulations: The Federal rules restrict any use of the information to criminally investigate or prosecute any alcohol or drug abuse patient.[facility] CenterIn the event this information is protected by the Federal Confidentiality of Alcohol and Drug Abuse Patient Records regulations: The Federal rules restrict any use of the information to criminally investigate or prosecute any alcohol or drug abuse patient.[facility] CenterIn the event this information is protected by the Federal Confidentiality of Alcohol and Drug Abuse Patient Records regulations: The Federal rules restrict any use of the information to criminally investigate or prosecute any alcohol or drug abuse patient.[facility] CenterIn the event this information is protected by the Federal Confidentiality of Alcohol and Drug Abuse Patient Records regulations: The Federal rules restrict any use of the information to criminally investigate or prosecute any alcohol or drug abuse patient.[facility] Center[facility] the event this information is protected by the Federal Confidentiality of Alcohol and Drug Abuse Patient Records regulations: The Federal rules restrict any use of the information to criminally investigate or prosecute any alcohol or drug abuse patient.[facility] CenterIn the event this information is protected by the Federal Confidentiality of Alcohol and Drug Abuse Patient Records regulations: The Federal rules restrict any use of the information to criminally investigate or prosecute any alcohol or drug abuse patient.[facility] CenterIn the event this information is protected by the Federal Confidentiality of Alcohol and Drug Abuse Patient Records regulations: The Federal rules restrict any use of the information to criminally investigate or prosecute any alcohol or drug abuse patient.[facility] CenterIn the event this information is protected by the Federal Confidentiality of Alcohol and Drug Abuse Patient Records regulations: The Federal rules restrict any use of the information to criminally investigate or prosecute any alcohol or drug abuse patient.[facility] CenterIn the event this information is protected by the Federal Confidentiality of Alcohol and Drug Abuse Patient Records regulations: The Federal rules restrict any use of the information to criminally investigate or prosecute any alcohol or drug abuse patient.[facility] CenterIn the event this information is protected by the Federal Confidentiality of Alcohol and Drug Abuse Patient Records regulations: The Federal rules restrict any use of the information to criminally investigate or prosecute any alcohol or drug abuse patient.[facility] CenterIn the event this information is protected by the Federal Confidentiality of Alcohol and Drug Abuse Patient Records regulations: The Federal rules restrict any use of the information to criminally investigate or prosecute any alcohol or drug abuse patient.[facility] CenterIn the event this information is protected by the Federal Confidentiality of Alcohol and Drug Abuse Patient Records regulations: The Federal rules restrict any use of the information to criminally investigate or prosecute any alcohol or drug abuse patient.[facility] CenterIn the event this information is protected by the Federal Confidentiality of Alcohol and Drug Abuse Patient Records regulations: The Federal rules restrict any use of the information to criminally investigate or prosecute any alcohol or drug abuse patient.[facility] CenterIn the event this information is protected by the Federal Confidentiality of Alcohol and Drug Abuse Patient Records regulations: The Federal rules restrict any use of the information to criminally investigate or prosecute any alcohol or drug abuse patient.[facility] CenterIn the event this information is protected by the Federal Confidentiality of Alcohol and Drug Abuse Patient Records regulations: The Federal rules restrict any use of the information to criminally investigate or prosecute any alcohol or drug abuse patient.[facility] CenterIn the event this information is protected by the Federal Confidentiality of Alcohol and Drug Abuse Patient Records regulations: The Federal rules restrict any use of the information to criminally investigate or prosecute any alcohol or drug abuse patient.[facility] Reason for Visit (unrecogniz ed section and content) Reason Comments Establish Care former Dr. Rommel sommers Reason Comments Results Reason Comments Refill Request Reason Comments Hypertension 6 month follow up Reason Comments Consult Thrombocytosis Specialty Diagnoses / Procedures Referred By Contac t Referred To Contact Hematology/Oncology / [facility] Department Diagnoses Thrombocytosis Procedures CONSULT TO HEMATOLOGY/ONCOLOGY OFFICE/OUTPATIENT [facility] HIGH MDM 60-74 MINUTES Renetta Cline DO [address] [place] [address] Sreedhar Rojas MD [address] [address] Referral ID Status Reason Start Date Expiration Date V isits Requested Visits Authorized [id number] Closed PCP Requested Referral 09/30/2022 09/30/2023 1 1 Reason Onset Date Comments Population Health Navigation Outreach 02/01/2023 ACO Attributed Member Needs HTN FU Appt Reason Onset Date Comments Population Health Navigation Outreach 02/09/2023 ACO Member Needs PCP Appt for HTN FU Reason Comments F/U 6 Month hypertension Reason Onset Date Comments Refill Request Refill Request 04/14/2023 Reason Comments New Patient Elevated PSA Specialty Diagnoses / Procedures Referred By Contac t Referred To Contact Diagnoses Elevated PSA Procedures CONSULT TO UROLOGY OFFICE/OUTPATIENT NEW HIGH MDM 60-74 MINUTES Renetta Cline, DO [address] [place] [address] Kim Meier Jr., MD [address] [place] [address] Referral ID Status Reason Start Date Expiration Date V isits Requested Visits Authorized [id number] Closed PCP Requested Referral 03/28/2023 03/27/2024 1 1 Reason Comments Medication Problem Reason Comments Elevated PSA Reason Comments Results Reason Comments F/U HTN 6 Month Reason Onset Date Comments Refill Request 07/30/2024 Reason Comments Medicare Wellness Exam Reason Comments Consult Specialty Diagnoses / Procedures Referred By Contac t Referred To Contact Vascular Medicine Diagnoses Peripheral artery disease Procedures CONSULT TO VASCULAR MEDICINE OFFICE/OUTPATIENT NEW HIGH MDM 60 MINUTES Renetta Cline Nat, DO [address] [place] [address] Phone: tel: fax: Denise Ashley, DO [address] [address] Phone: tel: Referral ID Status Reason Start Date Expiration Date V isits Requested Visits Authorized [id number] Closed PCP Requested Referral 2024 2025 1 1 Reason Comments Patient Update Elevated HR and BP Reason Comments Established Patient Reason Comments New Patient Specialty Diagnoses / Procedures Referred By Contac t Referred To Contact Cardiology Diagnoses Dyspnea on exertion Procedures OFFICE/OUTPATIENT NEW HIGH MDM 60 MINUTES Anthony Egan MD [address], [address] [address] Phone: tel: fax: Referral ID Status Reason Start Date Expiration Date V isits Requested Visits Authorized [id number] Closed PCP Requested Referral 12/19/2024 12/19/2025 1 1 Reason Comments Established Patient Reason Comments Opened In Error Care Teams (unrecognized sec tion and content) Veterans Service Officer Relationship Specialty Start Date End Date SheetsRenetta DO [address] [place] [address] PCP - General Family Practice 08/17/21 Veterans Service Officer Relationship Specialty Start Date End Date SheetsRenetta DO [address] [place] [address] PCP - General Family Practice 08/17/21 Veterans Service Officer Relationship Specialty Start Date End Date SheetsRenetta DO [address] [place] [address] PCP - General Family Medicine 08/17/21 Veterans Service Officer Relationship Specialty Start Date End Date SheetsRenetta DO [address] [place] [address] PCP - General Family Medicine 08/17/21 Veterans Service Officer Relationship Specialty Start Date End Date SheetsRenetta DO [address] [place] [address] PCP - General Family Medicine 08/17/21 Veterans Service Officer Relationship Specialty Start Date End Date SheetsRenetta DO [address] [place] [address] PCP - General Family Medicine 08/17/21 Veterans Service Officer Relationship Specialty Start Date End Date SheetsRenetta DO [address] [place] [address] PCP - General Family Medicine 08/17/21 Veterans Service Officer Relationship Specialty Start Date End Date Sheets, Renetta Johns DO [address] [place] [address] PCP - General Family Medicine 08/17/21 Veterans Service Officer Relationship Specialty Start Date End Date SheetsRenetta DO [address] [place] [address] PCP - General Family Medicine 08/17/21 Veterans Service Officer Relationship Specialty Start Date End Date SheetsRenetta DO [address] [place] [address] PCP - General Family Medicine 08/17/21 Veterans Service Officer Relationship Specialty Start Date End Date SheetsRenetta DO [address] [place] [address] PCP - General Family Medicine 08/17/21 Veterans Service Officer Relationship Specialty Start Date End Date SheetsRenetta DO [address] [place] [address] PCP - General Family Medicine 08/17/21 Veterans Service Officer Relationship Specialty Start Date End Date SheetsRenetta DO [address] [place] [address] PCP - General Family Medicine 08/17/21 Veterans Service Officer Relationship Specialty Start Date End Date SheetsRenetta DO [address] [place] [address] PCP - General Family Medicine 08/17/21 Veterans Service Officer Relationship Specialty Start Date End Date SheetsRenetta DO [address] [place] [address] PCP - General Family Medicine 08/17/21 Veterans Service Officer Relationship Specialty Start Date End Date SheetsRenetta DO [address] [place] [address] PCP - General Family Medicine 08/17/21 Veterans Service Officer Relationship Specialty Start Date End Date Renetta Cline DO [address] [place] [address] PCP - General Family Medicine 08/17/21 Veterans Service Officer Relationship Specialty Start Date End Date Renetta Cline DO [address] [place] [address] PCP - General Family Medicine 08/17/21 Veterans Service Officer Relationship Specialty Start Date End Date Renetta Cline DO [address] [place] [address] PCP - General Family Medicine 08/17/21 Veterans Service Officer Relationship Specialty Start Date End Date Renetta Cline DO [address] [place] [address] PCP - General Family Medicine 08/17/21 Veterans Service Officer Relationship Specialty Start Date End Date Renetta Cline DO [address] [place] [address] PCP - General Family Medicine 08/17/21 Veterans Service Officer Relationship Specialty Start Date End Date Renetta Cline DO [address] [place] [address] PCP - General Family Medicine 08/17/21 Veterans Service Officer Relationship Specialty Start Date End Date Renetta Cline DO [address] [place] [address] PCP - General Family Medicine 08/17/21 Veterans Service Officer Relationship Specialty Start Date End Date Renetta Cline DO [address] [facility] [place] [address] PCP - General Family Medicine 08/17/21 Veterans Service Officer Relationship Specialty Start Date End Date SheetsRenetta DO [address] [facility] [place] [address] PCP - General Family Medicine 08/17/21 Veterans Service Officer Relationship Specialty Start Date End Date SheetsRenetta DO [address] [facility] [place] [address] PCP - General Family Medicine 08/17/21 Juan Miguel Rodriguez MD [address] [facility] [place] [address] Cardiology 01/28/25 Veterans Service Officer Relationship Specialty Start Date End Date SheetsRenetta DO [address] [facility] [place] [address] PCP - General Family Medicine 08/17/21 Juan Miguel Rodriguez MD [address] [facility] [place] [address] Cardiology 01/28/25 Veterans Service Officer Relationship Specialty Start Date End Date SheetsRenetta DO [address] [facility] [place] [place] [address] PCP - General Family Medicine 08/17/21 Juan Miguel Rodriguez MD [address] [facility] [place] [address] Cardiology 01/28/25 Veterans Service Officer Relationship Specialty Start Date End Date SheetsRenetta DO [address] [facility] [place] [address] PCP - General Family Medicine 08/17/21 Juan Miguel Rodriguez MD [address] [facility] [place] [address] Cardiology 01/28/25 Veterans Service Officer Relationship Specialty Start Date End Date Renetta Cline DO [address] [place] [address] PCP - General Family Medicine 08/17/21 Juan Miguel Rodriguez MD [address] [facility] [place] [address] Cardiology 01/28/25 Veterans Service Officer Relationship Specialty Start Date End Date Renetta Cline DO [address] [place] [address] PCP - General Family Medicine 08/17/21 Juan Miguel Rodriguez MD [address] [facility] [place] [address] Cardiology 01/28/25 Veterans Service Officer Relationship Specialty Start Date End Date Renetta Cline DO [address] [place] [address] PCP - General Family Medicine 08/17/21 Juan Miguel Rodriguez MD [address] [facility] [place] [address] Cardiology 01/28/25 Team Status: Active Member Role/Relationship Status Dates Dr. Renetta Cline DO Primary care physician Active Team Status: Inactive Member Role/Relationship Status Dates Dr. Renetta Cline DO Primary care physician Active Start: March 19, 2025 End: March 19, 2025 Dr. Rojas Marion MD Attending physician Active Start: March 19, 2025 End: March 19, 2025 Anthony Egan MD Referring Provider Active Sta rt: March 19, 2025 End: March 19, 2025 Team Status: Inactive Member Role/Relationship Status Dates Dr. Renetta Cline DO Primary care physician Active Start: March 25, 2025 End: March 25, 2025 Dr. Renetta Cline DO Referring Provider Active Start: March 25, 2025 End: March 25, 2025 Dr. Kim Corral MD Attending physician Active Start: March 25, 2025 End: March 25, 2025 Goals (unrecognized section and content) Goals may be documented in a n alternate sectionGoals may be documented in an alternate section FOR RECORDS PERTAINING TO PATIENTS WHO ARE OR HAVE BEEN ENROLLED IN A CHEMICAL DEPENDENCY/SUBSTANCEABUSE PROGRAM, SOME INFORMATION MAY BE OMITTED. This clinical summary was aggregated from multiple sources. Caution should be exercised in using it in the provision of clinical care. This summary normalizes information from multiple sources, and as a consequence, information in this document may materially change the coding, format and clinical context of patient data. In addition, data may be omitted in some cases. CLINICAL DECISIONS SHOULD BE BASED ON THE PRIMARY CLINICAL RECORDS. [employer] provides no warranty or guarantee of the accuracy or completeness of information in this document.
[2025-04-21] MEDS: Lactated Ringers 1,000 ML 15 ML IV (09:45)
--- NOTE | 2025-04-21 09:55 | PRE.ANES_ITS ---
ASA Classification* ASA Classification ASA Classification: 4 (Significant vascular disease. HTN. See cardiology notes. Significant LVOT gradient. ) Assessment & Plan Anesthesia* Anesthesia Assessment Anesthesia Assessment: Discussed sedation and/or anesthesia options, risks, benefits, and alternatives with patient/parents/legal guardian/POA. Questions invited. The patient/parents/legal guardian/POA seems to understand and agrees to proceed with anesthesia plan. Reviewed the physical assessment, medical history, allergy history and patient home medications list prior to surgery/procedure/anesthetic and documented any changes. Performed airway and anesthesia risk assessments. We will proceed with an arterial line and 2 peripheral IVs for this case. The patient reports drinking 8 beers daily. I had a thorough discussion with the patient, discussing his cardiac condition(s), and the patient's drinking, and the risk for surgery today. I advised the patient that today's anesthesia can be a risk factor for the development of further cardiac complications, including, but not limited to myocardial ischemia and lethal arrhythmias, due to the patient's history of open heart surgery and current atrial fibrillation. I had a very detailed and thorough conversation with the patient regarding the risk of today's procedure with regards to anesthesia, which could lead to potentially lethal arrhythmias, heart failure (or exacerbation of current heart failure), stroke, and . I explained to the patient that if there were to be an emergency, our potential interventions could include anything up to placing invasive lines, such as arterial or central lines, CPR, and delivering electrical shocks to the heart. The patient acknowledges this and I answered all questions illicited by the patient. I also advised, due to the patient's drinking, that the patient could become hypotensive in the operating room, which could lead to problems such as stroke or myocardial infarction. The patient verbalized understanding of all of the above and wishes to proceed with the surgery. Opportunity for questions invited. Cardiac clearance in place; see cardiology notes and recs. Duoneb preop for COPD Anesthesia Type Anesthesia Type: General History Source History Obtained from:: Patient and Chart Anesthesia Focused Assessment* Temperature: 98.3 F Pulse Rate: 69 Blood Pressure: 164/83 Respiratory Rate: 18 Pulse Ox: 97 Oxygen Delivery Method: Room Air Airway Assessment Mouth opens: >3 cm Mallampati Score: III Neck Range of motion (ROM): Full ROM Labs Anesthesia Preop lab: CBC WBC, (4.4-11.0) 7.1 K/mm3 03/25/25, 16: RBC, (4.6-6.2) 4.70 M/mm3 03/25/25, 16: Hgb, (13.0-16.5) 16.1 g/dL 03/25/25, 16: Hct, (40-54) 44.7 % 03/25/25, : Plt Count, (150-450) 407 K/mm3 03/25/25, : CHEMISTRY Potassium, (3.3-5.1) 3.9 mmol/L 03/25/25, : Sodium, (133-145) 134 mmol/L 03/25/25, : BUN, (4-19) 9 mg/dL 03/25/25, : Creatinine, (0.70-1.20) 0.72 mg/dL 03/25/25, : Glucose, (70-99) 124 mg/dL H 03/25/25, : COAG PT, (11.7-14.9) 13.0 SECONDS 03/25/25, : Pre-Assessment Diagnosis/Proposed Procedure Planned Operative Procedure(s): LEFT ENDARTERECTOMY CAROTID Anesthesia History Anesthesia History - residential solar consultant: Anesthesia History - residential solar consultant Hx Hospitalization No 04/03/25 11:09 Any Problems With Anesthesia No 04/03/25 11:09 Cholinesterase deficiency No 04/03/25 11:09 You/Your Family Experience No 04/03/25 11:09 fever (hyperthermia) with Relationship Recent Exposure to Contagious No 04/21/25 09:32 Disease Does patient have nerve No 04/03/25 11:09 stimulator Patient instructed to have device shut off --Does patient have Pacemaker No 04/21/25 09:32 or ICD? When Was Last Pacemaker Check QUESTION #4 FULL TEXT: You/Your Family Experience fever (hyperthermia) with Anesthesia Last Oral Intake Last Oral intake: Last Oral Intake NPO since 21:00 04/21/25 09:32 Meds taken in AM with sips of Yes 04/21/25 09:32 water? Meds patient instructed to see med list 04/21/25 09:32 take am of surgery PONV PONV - residential solar consultant: PONV - residential solar consultant Female No 04/03/25 11:09 HX of Motion Sickness No 04/03/25 11:09 HX of N/V After Surgery No 04/03/25 11:09 Non-Smoker No 04/03/25 11:09 Duration of Surgery greater Yes 04/03/25 11:09 than 60 minutes Number of Risk Factors 1 04/03/25 11:09 PONV Score Low Risk 04/03/25 11:09 Height & Weight Height & Weight: Anesthesia: Height & Weight Height 5 ft 9 in 04/21/25 09:32 Weight: 94 kg 04/21/25 09:32 Body Mass Index (BMI) 30.6 04/21/25 09:32 Respiratory Assessment Respiratory Assessment - residential solar consultant: Respiratory Tract Infection Hx - residential solar consultant Hx Respiratory Tract Infection No 04/03/25 11:09 STOP Sleep Apnea STOP Sleep Apnea - residential solar consultant: STOP Sleep Apnea - residential solar consultant Hx Hypertension Yes: CONTROLLED WITH MEDS 04/03/25 11:09 Hx Sleep Apnea No 04/03/25 11:09 CPAP BIPAP Do you snore loudly (louder No 04/03/25 11:09 than talking or can be heard Do you often feel tired/ Yes 04/03/25 11:09 fatigued/ sleepy during daytime? Has anyone observed you stop No 04/03/25 11:09 breathing during sleep? STOP Results Positive 04/03/25 11:09 QUESTION #5 FULL TEXT : Do you snore loudly (louder than talking or can be heard through closed doors)? Tobacco Use History Tobacco Use History - residential solar consultant: Tobacco Use History - residential solar consultant Tobacco Use Smoking Status Heavy Smoker (>10/day) 04/03/25 11:09 Hx Tobacco Use Yes 04/03/25 11:09 Years Smoking Packs Smoked per Day Smoking Cessation Date was within the last 15 years Hx Smoking Cessation Date Hx Smoking Cessation Counseling Hematologic Medial History Hematologic Hx - residential solar consultant: Hematologic Medical Hx - vp production Hx of Blood Transfusion No 04/03/25 11:09 Hx of Transfusion in last 3 No 04/03/25 11:09 Months Date of Last Transfusion (if within last 3 months) Ever experience any problems No 04/03/25 11:09 with transfusion(s)? Specify any problems Hx of Preganancy in last 3 N/A 04/03/25 11:09 Months Nurse Filling Out Transfusion DSCHRIBER 04/03/25 11:09 & Questions: Date: 04/03/25 04/03/25 11:09 Time: 11:11 04/03/25 11:09 Patient unable to answer at this time (ie. confused, unrespo /Reproduction History /Reproductive History - residential solar consultant: /Reproductive Hx- residential solar consultant Hx Now No 04/03/25 11:09 Gestational Age (in weeks): EDC: Hx Hx Para Hx Section SAB No 04/03/25 11:09 Does the father of the baby or his family experience fever w Father of the baby Malignant Hypertension history comment Active Medications Active Medications: Current Medications Generic Name Dose Route Start Last Admin Trade Name Freq PRN Reason Stop Dose Admin Cefazolin Sodium 2 gm/ Sodium 110 mls @ 200 mls/hr 04/21/25 11:30 Chloride IV 04/21/25 12:02 INTRAOP ONE Lactated Ringer's 1,000 mls @ 15 mls/hr 04/21/25 07:30 04/21/25 09:45 IV 15 mls/hr .Q48H ANNIA Administration Sodium Chloride 1,000 mls @ 15 mls/hr 04/21/25 07:25 IV .Q48H ANNIA PFSH Medical History (Updated 04/03/25 @ 11:18 by Kavitha Sharma) Wears glasses Wears dentures Alcohol use High cholesterol Shortness of breath on exertion Leg cramps History of pain when walking History of echocardiogram History of stress test Cardiology follow-up encounter Peripheral arterial disease Smoker Sinus tachycardia Mixed hyperlipidemia LVH (left ventricular hypertrophy) Essential (primary) hypertension Home Medications ?Medication ?Instructions ?Recorded ?Last Taken ?Type aspirin 81 mg tablet 81 mg PO QDAY HEART HEALTH 0 02/27/25 04/20/25 History atorvastatin 40 mg tablet (Lipitor) 40 mg PO QHS JACI STEROL 02/27/25 04/20/25 History cilostazol 100 mg tablet 100 mg PO BID PVD 02/27/25 1 06/15/24 History lisinopril 20 2 tab PO QDAY BP 02/27/25 History mg-hydrochlorothiazide 12.5 mg tablet metoprolol succinate 25 mg 25 mg PO BID BP 02/27/25 06:15 History tablet,extended release 24 hr clopidogrel 75 mg tablet (Plavix) 75 mg PO DAILY PVD 9 0 days #90 tabs 03/25/25 04/20/25 Rx Allergy/AdvReac Type Severity Reaction Status Date / Time No Known Allergies Allergy Verified 04/21/25 09:29 Surgical History (Updated 04/03/25 @ 11:18 by Kavitha Sharma) History of esophagogastroduodenoscopy (EGD) Hx of colonoscopy Social History Smoking Status: Heavy Smoker (>10/day) Tobacco: How many years used: 56 alcohol intake: current alcohol intake frequency: 3 or more drinks per day Alcohol type: beer details: 7-8 beers daily substance use type: does not use caffeine: Yes Review of Systems (Anesthesia) ROS Narrative System reviewed and no additional complaints, except as documented. Physical Exam Const alert, oriented x3 and average body habitus Resp normal respiratory effort, normal air movement and clear to auscultation bilaterally Cardio regular rate, regular rhythm, no murmurs and diaphoretic
[2025-04-21] MEDS: Albumin Human 25% (100 mL) 25 GM/100 ML BAG IV ×2 (10:26→10:42)
--- NOTE | 2025-04-21 11:25 | PCM.HP.STD ---
HPI - General General Date of Admission: 04/21/25 HPI Narrative LITA MEYER, is a 79 M who presents with severe bilateral carotid stenosis which is asymptomatic. He has significant calcification and no anatomic barriers to endarterectomy. Consumes 6-8 alcoholic beverages a day. [facility] Medical History Wears glasses Wears dentures Alcohol use High cholesterol Shortness of breath on exertion Leg cramps History of pain when walking History of echocardiogram History of stress test Cardiology follow-up encounter Peripheral arterial disease Smoker Sinus tachycardia Mixed hyperlipidemia LVH (left ventricular hypertrophy) Essential (primary) hypertension Home Medications ?Medication ?Instructions ?Recorded ?Last Taken ?Type aspirin 81 mg tablet 81 mg PO QDAY HEART HEALTH 02/27/25 04/20/25 History atorvastatin 40 mg tablet (Lipitor) 40 mg PO QHS CHOLESTEROL 02/27/25 04/20/25 History cilostazol 100 mg tablet 100 mg PO BID PVD 02/27/25 04/15/25 History lisinopril 20 2 tab PO QDAY BP 02/27/25 04/20/25 History mg-hydrochlorothiazide 12.5 mg tablet metoprolol succinate 25 mg 25 mg PO BID BP 02/27/25 04/21/25 06:15 History tablet,extended release 24 hr clopidogrel 75 mg tablet (Plavix) 75 mg PO DAILY PVD 90 days #90 tabs 03/25/25 04/20/25 Rx Allergy/AdvReac Type Severity Reaction Status Date / Time No Known Allergies Allergy Verified 04/21/25 09:29 Surgical History History of esophagogastroduodenoscopy (EGD) Hx of colonoscopy Social History Smoking Status: Heavy Smoker (>10/day) Tobacco: How many years used: 56 alcohol intake: current alcohol intake frequency: 3 or more drinks per day Alcohol type: beer details: 7-8 beers daily substance use type: does not use caffeine: Yes ROS Constitutional Constitutional: Denies chills, fever(s), frequent falls, lethargy or weakness Eyes Eyes: Denies blind spots, change in vision or loss of vision ENT HEENT: Denies bleeding gums, hoarseness or sore throat Cardiovascular Cardiovascular: Denies abdominal pain, bluish discoloration of hand/feet, chest pain with activity, claudication, cold extremities, cyanosis, dyspnea on exertion, erythema on extremities, irregular heart rhythm, leg edema, leg ulcers, numbness in extremities or weakness in extremities Respiratory/Chest Respiratory/Chest: Denies cough, excessive phlegm production, shortness of breath at rest, shortness of breath with exertion or wheezing Gastrointestinal Gastrointestinal: Denies anorexia, change in stool character, constipation, diarrhea, melena or rectal bleeding Genitourinary Genitourinary: Denies dysuria or hematuria Musculoskeletal Musculoskeletal: Denies abnormal gait Integumentary Integumentary: Reports other Details: ; Denies erythema, non-healing lesions or wounds Neurologic Neurologic: Denies abnormal speech, focal weakness, headache(s), loss of vision, numbness, paresthesias or sensory deficit Hematologic/Lymphatic Hematologic/Lymphatic: Denies easy bleeding, easy bruising or lymphadenopathy Vital Signs Vital Signs Vital Signs: 04/21/25 09:32 04/21/25 09:32 04/21/25 09:58 Temperature 98.3 F 98.3 F Temperature Source Temporal Pulse Rate 69 69 Respiratory Rate 18 18 Respiratory Pattern Normal Blood Pressure 164/83 H 164/83 H Blood Pressure Mean 110 Blood Pressure Source Monitor Blood Pressure Position Semi-Fowlers Blood Pressure Location Left Arm Pulse Ox 97 97 Oxygen Delivery Method Room Air Room Air Weight Weight: 207 lb 3.752 oz Body Mass Index (BMI) 30.6 Physical Exam Const alert, oriented x3, no apparent distress and healthy appearing General Appearance: cooperative; Negative for combative or lethargic Orientation / Consciousness: awake Exam Limitations: no limitations HEENT Head and Scalp: normocephalic and atraumatic Eyes EOMs intact bilaterally General Eye: normal appearance of both eyes Neck full ROM General: trachea midline Resp normal respiratory effort and no use of accessory muscles Effort and Inspection: Negative for labored, stridor or audible wheezes Cardio regular rate and regular rhythm Back/Spine Cervical Spine: cervical ROM normal Extremity full ROM, normal capillary refill and no clubbing, cyanosis or edema Skin no rashes or lesions noted and no wounds Neuro oriented x3, CN's II-XII intact bilaterally, no focal motor deficits and no sensory deficits noted Psych thought process normal, cooperative, affect normal, speech normal and activity/motor behavior normal Results Lab / Micro Data 03/25/25 16:22 03/25/25 16:22 Assessment & Plan Assessment/Plan (1) Bilateral carotid artery stenosis: PLAN: -left carotid endarterectomy -will address right in 4-6 weeks
--- NOTE | 2025-04-21 11:30 | PLAQ_PTH ---
PATIENT: LITA MEYER LOC: [facility] U#:[id number] AGE/SX: 79/M ROOM: [facility]11 RE04/21/[address]: Dr. Rojas Marion MD : 1945 BED: 1 DIS: 05/07/2025 SPEC #: [id number] RECD: 04/22/25 07:20 STATUS: MICHELINE REQ #: [id number] YULIA: 04/21/25 11:[address]: Rojas Marion DEPT: SURGICAL PATHOLOGY RECD BY: Cash Ashley ENTERED: 04/22/25 10:20 SP TYPE: PLAQUE OT DR: Dr. Renetta Botello, Tissues: A - PLAQUE Procedures: Decalcification bone/plaque Surgery Specimen Level III HEADER OPERATION: Left carotid endarterectomy, right femoral atrial line place PRE-OP DIAGNOSIS: Bilateral carotid artery stenosis TISSUE SUBMITTED: A- Left carotid plaque MICROSCOPIC DIAGNOSIS A. Left carotid artery, plaque, endarterectomy: - Fibrointimal hyperplasia with calcification, consistent with atherosclerotic plaque. GROSS DESCRIPTION A. Received in formalin labeled with the patient's name and date of . Designated as left carotid plaque is a leo-yellow, calcified, bifurcated and focally disrupted plaque, 4.3 x 1.3 x 1.2 cm. Monitor Car Operator sections are submitted in 1 cassette, following decalcification. MS 04/22/2025 CPT:32917,10377
[2025-04-21] MEDS: Nitro/D5w 25MG/250ML Bottle 25 MG (11:49)
[2025-04-21] MEDS: Lidocaine 1% (30 ml sdv) 30 ML Vial (12:46)
[2025-04-21] MEDS: Cefazolin 1 GM/5 ML Vial 2 GM IV (12:55)
[2025-04-21] MEDS: Heparin Injection 5,000 UNITS/ML Syringe 10000 UNITS IV (14:02)
[2025-04-21] MEDS: Lactated Ringers 2,000 ML 2000 ML IV (14:54)
[2025-04-21 15:26] LABS: ACT Activated Clotting Time 266 sec (74-137)
[2025-04-21 15:26] LABS: ACT Activated Clotting Time 153 sec (74-137)
[2025-04-21 15:26] LABS: ACT Activated Clotting Time 342 sec (74-137)
--- NOTE | 2025-04-21 15:48 | PCM.OPRPT ---
Operative Report (Standard) Operative Information Date of Procedure: 04/21/25 Pre-Operative Diagnosis: left carotid stenosis Post-Operative Diagnosis: same Surgery/Procedure Performed: left carotid endarterectomy pediatric physician assistant: Yes Lap Machine Operator: Corine Sifuentes Tasks completed by audiology assistant: Opening, Closing, Opening & closing, Hemostasis: Tie, Hemostasis: Electrocautery and Retracting Type of Anesthesia: General RN Documented Start/Stop Times: Operation Date: 04/21/25 11:30 Case Time Into Pre-Op 04/21/25 07:27 Anesthesia Start 04/21/25 12:27 Into Room 04/21/25 12:27 Procedure Start 04/21/25 13:26 Procedure End 04/21/25 16:10 Anesthesia End 04/21/25 16:22 Out of Room 04/21/25 16:22 Procedure Start Time: 13:25 Procedure Stop Time: 15:50 Select all DRAINS/GRAFTS/IMPLANTS that apply: Graft Graft details: bovine pericardial patch Estimated Blood Loss: 23 Specimen collected: Yes Description of specimen(s) removed: plaque Description of surgery: HPI: Patient is a 79-year-old male with severe bilateral internal carotid artery stenosis. He has no contraindication to open intervention and has significantly calcified carotid plaque. He is taken now for left carotid endarterectomy. Description of procedure: Upon obtaining form consent and verification correct patient procedure site the patient was taken to the operating where he was placed in the position. Anesthesia was unable to obtain radial arterial line due to small caliber calcified vessels. Ultrasound was used to evaluate the right common femoral artery which appeared to be pulsatile with only mild to moderate atherosclerosis. The areas prepped and draped in usual sterile fashion and skin anesthetized with 1% lidocaine. Under ultrasound guidance the common femoral artery was accessed with a micropuncture needle wire. This then exchanged for the femoral arterial line catheter advanced over the wire without resistance. The wire was then withdrawn and pulsatile flow observed. The femoral catheter then connected to the transducer tubing and appropriate waveform and pressure was observed. The femoral catheter was then secured in position with 2-0 silk suture and dressing applied. The patient was then placed under general anesthesia and positioned prepped and draped in usual sterile fashion and a timeout performed. Oblique incision was made along the anterior border of the sternocleidomastoid and Bovie used to dissect down through subcutaneous tissue to the level the platysma. The platysma was divided and self-retaining retractors put in position. Further dissection was then carried down to the sternocleidomastoid which was free along its anterior border allowing to retracted posterior laterally exposing the carotid sheath. Sharp dissection used to dissect free the anterior border the of the internal jugular vein with sidebranches ligated silk ties and divided. The jugular vein was then retracted laterally exposing the carotid vessels. Sharp dissection was used dissect free the proximal common carotid artery with care taken identify and protect the vagus nerve. A writing was used to place a vessel loop at this location and attention was then turned to the distal internal carotid artery. Sharp dissection was used to dissect free the vessel beyond the palpable and visible plaque and a right angle used to place a vessel loop with care taken to identify and protect the hypoglossal nerve. The patient was then heparinized allowed to circulate for 3 minutes with subsequent heparin dosing based on ACT results. While this was circulating sharp dissection was used to dissect free the external carotid artery and a right angle used to place a vessel loop. Vessels were then occluded first the internal followed by the common and external. A longitudinal arteriotomy was created with 11 blade on the common carotid artery and extended down to the internal carotid artery with Mancia scissors beyond the area of plaque. An 8 [place] shunt was then placed first distally in the internal carotid artery allowed to backbleed before placing approximately common carotid artery. The shunt was interrogated Doppler and found to be patent with lowest and signal. We then performed our endarterectomy with a freer elevator with satisfactory endpoint distally on the internal carotid artery and eversion endarterectomy on the external carotid artery. The distal endpoint was intact with 7-0 Prolene interrupted sutures and a bovine pericardial patch secured in position with 6-0 Prolene in a running fashion. Prior to completing suture line the shunt was removed and the vessel was backbled. After completing suture line the internal carotid artery clamp was released along the backbleed and the bifurcation then is reoccluded at the origin. Clamps were then removed from the external and the common carotid artery allowing 10 heartbeats of A2 of flow into the external carotid artery before reestablishing flow into the internal carotid artery. Vessels were interrogated with Doppler found a patent with appropriate signal and heparin was reversed with protamine. Incision inspected hemostasis and a 19 Pan[place]ian channel CHAR placed via separate stab incision. The incision was closed with 2-0 Vicryl, 3-0 Vicryl, 4-0 Monocryl and Dermabond for the skin. The patient was then awakened anesthesia moving all extremities with cranial nerves intact. He is taken to the cover room with anticipated admission to the intensive care unit for hemodynamic and neurologic monitoring. Surgical Findings: Moving all extremities command, cranial nerves intact Complications Complications: No
[2025-04-21] MEDS: Midazolam 2 MG/2 ML Syringe 6 MG IV (15:57)
[2025-04-21] MEDS: fentaNYL 100 MCG/2 ML Ampul 300 MCG IV (15:59)
--- NOTE | 2025-04-21 16:32 | PCM.POST.ANE ---
Anesthesia: Postop Eval I Current Vital Signs Temperature: 97.2 F Pulse Rate: 73 Blood Pressure: 134/46 Respiratory Rate: 20 Pulse Ox: 93 Assessment Airway patent: Yes Spontaneous unlabored respirations: Yes nausea: No Vomiting: No Anesthesia Complication: No Fluid Hydration Crystalloid volume administer (ml): 2,000 Total IV fluid infused: 2,000 Progress Note Anesthesia document: Postop Eval 1 completed: Yes
--- NOTE | 2025-04-21 16:38 | POSTOPAN2_ITS ---
Anesthesia Postop Eval I Sum Postop Eval Completion status Anesthesia document: Postop Eval 1 completed: Yes Anesthesia Postop Eval I Summary Anesthesia Postop Eval I Summary: Anesthesia Postop Eval I: Assessment Summary Airway patent Yes 04/21/25 16:32 INSTRUCTIONAL AIDE.CSIR Spontaneous unlabored Yes 04/21/25 16:32 INSTRUCTIONAL AIDE.CSIR respirations Mental status nausea No 04/21/25 16:32 INSTRUCTIONAL AIDE.CSIR Vomiting No 04/21/25 16:32 INSTRUCTIONAL AIDE.CSIR Anesthesia Postop Eval I: Fluid Summary Crystalloid volume administer 2,000 04/21/25 16:32 INSTRUCTIONAL AIDE.CSIR (ml) Colloids volume administered ( ml) Blood Product volume administered (ml) Total IV fluid infused 2,000 04/21/25 16:32 INSTRUCTIONAL AIDE.CSIR Anesthesia Postop Eval I: Summary Notes Anesthesia Complication No 04/21/25 16:32 INSTRUCTIONAL AIDE.CSIR Anesthesia Complication Comment: Post-operative progress note Anesthesia: Postop Eval II Evaluation Mental status: Awake Pain Level: 0 nausea: No Vomiting: No Complications Anesthesia Complication: No
--- NOTE | 2025-04-21 16:38 | PCM.POSTANE2 ---
Anesthesia Postop Eval I Sum Postop Eval Completion status Anesthesia document: Postop Eval 1 completed: Yes Anesthesia Postop Eval I Summary Anesthesia Postop Eval I Summary: Anesthesia Postop Eval I: Assessment Summary Airway patent Yes 04/21/25 16:32 [employer]IVER.CSIR Spontaneous unlabored Yes 04/21/25 16:32 [employer].CSIR respirations Mental status nausea No 04/21/25 16:32 [employer].CSIR Vomiting No 04/21/25 16:32 [employer].CSIR Anesthesia Postop Eval I: Fluid Summary Crystalloid volume administer 2,000 04/21/25 16:32 [employer]IVER.CSIR (ml) Colloids volume administered ( ml) Blood Product volume administered (ml) Total IV fluid infused 2,000 04/21/25 16:32 [employer]IVER.CSIR Anesthesia Postop Eval I: Summary Notes Anesthesia Complication No 04/21/25 16:32 [employer]IVER.CSIR Anesthesia Complication Comment: Post-operative progress note Anesthesia: Postop Eval II Evaluation Mental status: Awake Pain Level: 0 nausea: No Vomiting: No Complications Anesthesia Complication: No
[2025-04-21] MEDS: 0.45% Normal Saline 1,000 ML 100 ML IV (17:42)
[2025-04-21] MEDS: Nitroglycerin Infusion 250 ML 3 MG CONT INF (17:53)
[2025-04-21] MEDS: TITRATION PARAMETER CHANGE 1 EACH IV (19:09)
[2025-04-21] MEDS: Cefazolin 1 GM/50 ML BAG IV (21:20)
[2025-04-21] MEDS: Metoprolol(XL)Succ 25 MG Tablet PO (21:21)
[2025-04-22] VITALS (66 sets, daily range): BP systolic 96–214; BP diastolic 42–95; PULSE 60–101; RESP 10–25; TEMP 36.2–36.9; O2SAT 90–95; BMI 31.4
[2025-04-22] MEDS: 0.45% Normal Saline 1,000 ML 100 ML IV (02:59)
[2025-04-22] MEDS: Nitroglycerin Infusion 250 ML 39 MG CONT INF (03:00)
[2025-04-22] MEDS: Cefazolin 1 GM/50 ML BAG IV (04:58)
[2025-04-22 04:59] LABS: Hematocrit 35.0 % (40-54); Hemoglobin 12.4 g/dL (13.0-16.5); Immature Granulocytes Count 0.080 X10^3/uL (0.0-0.0); Mean Corp Hgb Conc 35.4 g/dL (32-36); Mean Corpuscular Volume 96.2 fL (80-94); Mean Platelet Vol. 8.6 fl (6.2-12.0); NRBC Flagged by Analyzer 0 % (0-5); Platelet Count 307 K/mm3 (150-450); RBC Distribution Width CV 12.6 % (11.6-14.6); RBC Distribution Width SD 44.9 fl (35.1-43.9); Red Blood Count 3.64 M/mm3 (4.6-6.2); White Blood Count 11.5 K/mm3 (4.4-11.0)
--- OUTSIDE RECORDS SUMMARY | 2025-04-22 07:23 | XMS RPT_ITS | CCD ---
Author Organization [facility] Care Team Providers Care Burrer Operator Name Role Phone Sheets DORenetta Primary Care Provider [phone] Sheets DORenetta Primary Care Provider Juan Miguel Rodriguez MD Unavailable Unavailab le JUAN MIGUEL RODRIGUEZ Referring Unavailable SHEETS, RENETTA Johns Primary Care Unavailable JENNIFER, JUAN MIGUEL FERRIS Referring Unavailable SHEETS, RENETTA C Primary Care Unavailable SELIGSON, ANTHONY Referring Unavailable SHEETS, RENETTA C Primary Care Unavailable JENNIFERJUAN MIGUEL Attending Unavailable SELIGSON, ANTHONY Referring Unavailable SHEETS, [...] SHEETS, RENETTA C Primary Care Unavailable Sheets , Dr. Jackson Primary Care Physician Dr. Rojas Marion MD Attending Physician [phone] Anthony Egan MD Referring Provider Sheets Dr. Renetta DOWNEY Referring Provider [phone] Dr. Kim Corral MD Attending Physician [phone] SHEETS, RENETTA Johns Attending Unavailable SHEETS, RENETTA C Referring Unavailable SHEETS, RENETTA C Primary Care Unavailable SELIGSON, ANTHONY Referring Unavailable SHEETS, RENETTA C Primary Care Unavailable SELIGSON, ANTHONY Referring Unavailable SHEETS, RENETTA C Primary Care Unavailable SHEETS, RENETTA C Attending Unavailable SHEETS, RENETTA C Primary Care Unavailable Sheets, Renetta Primary Care Unavailable Sheets, Chilo Referring Unavailable Kim Corral Attending Unavailable Rojas Marion Admitting Unavailable Sheets, Chilo Primary Care Unavailable Rojas Marion Consulting Unavailable Rojas Marion Attending Unavailable Rojas Marion Referring Unavailable Sheets, Chilo Primary Care Unavailable Anthony Egan Referring Unavailable Rojas Marion Attending Unavailable Medications Current Medications Medication Drug Class(es) Dates Sig (Normalized) Sig (Original) aspirin 81 mg oral tablet (20 sources) Platelet Aggregation Inhibitor, Nonsteroidal Anti-inflammatory Drug Start: 02-27-2025 take 1 tablet by mouth once daily Aspirin 81 mg tablet Active 81 mg PO daily February 27, 2025 12:00am HEART [employer] Complies with drug therapy Start: 2024 take [...] on above: Take 1 tablet by kelly twice daily. take 1 tablet by kelly twice a day clopidogrel 75 mg oral [...] on above: Take [address] [facility] once daily. take [address] [facility] once daily 24 hr metoprolol succinate 25 mg extended release oral tablet (20 sources) beta-Adrenergic Yas Start: 02-27-2025 take 1 tablet by mouth twice daily Metoprolol Succinate 25 mg tablet extended release 24 hr Active 25 mg PO TWICE A DAY February 27, 2025 12:00am BP Complies with drug therapy Start: 01-28-2025 take 1 tablet by kelly twice daily metoprolol succinate ER (TOPROL XL) [...] once daily. take 1/2 tablet by m out once daily Completed/Discontinued Medications Medication Drug Class(es) [...] Comment on above: Take [address] [facility] once daily for 3 days. Start day [...] Chronic Occlusion or stenosis of precerebral arteries (20 sources) Bilateral stenosis of carotid arteries; Translations: [...] Test Name Value Interpretation Reference Range Facility ACT Activated Clotting Timeo n 04-21-2025 ACTk CLOT TIME 153 sec High 74-137 [facility] Comment on above: Performed By: #### L 9100.0100 #### [facility] [address] [place], [address] ACTk CLOT TIME 342 sec High 74-137 [facility] Comment on above: Performed By: #### L 9100.0100 #### [facility] [address] [place], [address] ACTk CLOT TIME 266 sec High 74-137 [facility] Comment on above: Performed By: #### L 9100.0100 ####[facility] [address] [place], [address] MR/POSTOP.Jesús 04-21-2025 MR/POSTOP.[facility] Medical Records Department [address] [place] [address] Anesthesia Postop Eval I 04/21/25 1632 MR#: [id number] Acct: [id number] Name: LITA MEYER Rep #: [id number] : 1945 79 From: Sarah Del Cid CRNA PCP: Dr. Renetta Cline, DO Status:ADM IN Y Race: C Location: ICU ICU11- Anesthesia: Postop Eval I Current Vital Signs Temperature: 97.2 F Pulse Rate: 73 Blood Pressure: 134/46 Respiratory Rate: 20 Pulse Ox: 93 Assessment Airway patent: Yes Spontaneous unlabored respirations: Yes nausea: No Vomiting: No Anesthesia Complication: No Fluid Hydration Crystalloid volume administer (ml): 2,000 Total IV fluid infused: 2,000 Progress Note Anesthesia document: Postop Eval 1 completed: Yes 04/21/25 163 Date Sarah Del Cid FINANCE ATTORNEY Cosigner Signature: Date CC: Signed Normal [facility] MR/[id number] 04-21-2025 [facility] Medical Records Department [address] [place] [address] Anesthesia Postop Eval II 04/21/258 MR#: [id number] Acct: [id number] Name: LITA MEYER Rep #: [id number] : 1945 79 From: Manuel Fritz MD PCP: Dr. Renetta Cline, DO Status:ADM IN Y Race: C Location: ICU ICU11 Anesthesia Postop Eval I Sum Postop Eval Completion status Anesthesia document: Postop Eval 1 completed: Yes Anesthesia Postop Eval I Summary Anesthesia Postop Eval I Summary: Anesthesia Postop Eval I: Assessment Summary Airway patent Yes 04/21/25 16:32 FINANCE ATTORNEY.CSIR Spontaneous unlabored Yes 04/21/25 16:32 FINANCE ATTORNEY.CSIR respirations Mental status nausea No 04/21/25 16:32 FINANCE ATTORNEY.CSIR Vomiting No 04/21/25 16:32 FINANCE ATTORNEY.CSIR Anesthesia Postop Eval I: Fluid Summary Crystalloid volume administer 2,000 04/21/25 16:32 FINANCE ATTORNEY.CSIR (ml) Colloids volume administered ( ml) Blood Product volume administered (ml) Total IV fluid infused 2,000 04/21/25 16:32 FINANCE ATTORNEY.CSIR Anesthesia Postop Eval I: Summary Notes Anesthesia Complication No 04/21/25 16:32 FINANCE ATTORNEY.CSIR Anesthesia Complication Comment: Post-operative progress note Anesthesia: Postop Eval II Evaluation Mental status: Awake Pain Level: 0 nausea: No Vomiting: No Complications Anesthesia Complication: No 04/21/25 1638 Date Manuel Calero Signature: Date CC: Signed Normal [facility] Operative Reporton 5 Operative Report [facility] Medical Records Department [address] [place] [address] Operative Report 04/21/25 1548 MR#: [id number] Acct: [id number] Name: LITA MEYER Rep #: [id number] : 1945 79 From: Rojas Marion MD PCP: Dr. Renetta Cline, DO Status:ADM IN Location: ICU ICU11-1 Operative Report (Standard) Operative Information Date of Procedure: 04/21/25 Pre-Operative Diagnosis: left carotid stenosis Post-Operative Diagnosis: same Surgery/Procedure Performed: left carotid endarterectomy warehouse team member: Yes Rental Coordinator: Corine Sifuentes Tasks completed by assistant professor of business: Opening, Closing, Opening closing, Hemostasis: Tie, Hemostasis: Electrocautery and Retracting Type of Anesthesia: General RN Documented Start/Stop Times: Operation Date: 04/21/25 11:30 Case Time Into Pre-Op 04/21/25 07:27 Anesthesia Start 04/21/25 12:27 Into Room 04/21/25 12:27 Procedure Start 04/21/25 13:26 Procedure End 04/21/25 16:10 Anesthesia End 04/21/25 16:22 Out of Room 04/21/25 16:22 Procedure Start Time: 13:25 Procedure Stop Time: 15:50 Select all DRAINS/GRAFTS/IMPLANTS that apply: Graft Graft details: bovine pericardial patch Estimated Blood Loss: 23 Specimen collected: Yes Description of specimen(s) removed: plaque Description of surgery: HPI: Patient is a 79-year-old male with severe bilateral internal carotid artery stenosis. He has no contraindication to open intervention and has significantly calcified carotid plaque. He is taken now for left carotid endarterectomy. Description of procedure: Upon obtaining form consent and verification correct patient procedure site the patient was taken to the operating where he was placed in the position. Anesthesia was unable to obtain radial arterial line due to small caliber calcified vessels. Ultrasound was used to evaluate the right common femoral artery which appeared to be pulsatile with only mild to moderate atherosclerosis. The areas prepped and draped in usual sterile fashion and skin anesthetized with 1% lidocaine. Under ultrasound guidance the common femoral artery was accessed with a micropuncture needle wire. This then exchanged for the femoral arterial line catheter advanced over the wire without resistance. The wire was then withdrawn and pulsatile flow observed. The femoral catheter then connected to the transducer tubing and appropriate waveform and pressure was observed. The femoral catheter was then secured in position with 2-0 silk suture and dressing applied. The patient was then placed under general anesthesia and positioned prepped and draped in usual sterile fashion and a timeout performed. Oblique incision was made along the anterior border of the sternocleidomastoid and Bovie used to dissect down through subcutaneous tissue to the level the platysma. The platysma was divided and self-retaining retractors put in position. Further dissection was then carried down to the sternocleidomastoid which was free along its anterior border allowing to retracted posterior laterally exposing the carotid sheath. Sharp dissection used to dissect free the anterior border the of the internal jugular vein with sidebranches ligated silk ties and divided. The jugular vein was then retracted laterally exposing the carotid vessels. Sharp dissection was used dissect free the proximal common carotid artery with care taken identify and protect the vagus nerve. A writing was used to place a vessel loop at this location and attention was then turned to the distal internal carotid artery. Sharp dissection was used to dissect free the vessel beyond the palpable and visible plaque and a right angle used to place a vessel loop with care taken to identify and protect the hypoglossal nerve. The patient was then heparinized allowed to circulate for 3 minutes with subsequent heparin dosing based on ACT results. While this was circulating sharp dissection was used to dissect free the external carotid artery and a right angle used to place a vessel loop. Vessels were then occluded first the internal followed by the common and external. A longitudinal arteriotomy was created with 11 blade on the common carotid artery and extended down to the internal carotid artery with Mancia scissors beyond the area of plaque. An 8 [place] shunt was then placed first distally in the internal carotid artery allowed to backbleed before placing approximately common carotid artery. The shunt was interrogated Doppler and found to be patent with lowest and signal. We then performed our endarterectomy with a freer elevator with satisfactory endpoint distally on the internal carotid artery and eversion endarterectomy on the external carotid artery. The distal endpoint was intact with 7-0 Prolene inte rrupted sutures and a bovine pericardial patch secured in position with 6-0 Prolene in a running f (more content not included)... [facility] 04-16-2025 [facility] Telephone ([facility]EDJJ [facility]ARMACH[facility]) LITA MEYER ([id number]) 1945 M Date Time Provider Department 04/16/25 RENETTA CLINE During your visit today, we [...] PM EST To: Juan Miguel Rodriguez MD De, Dr. Rodriguez, I see that you reviewed Lita's stress test, and it indicates moderate risk. Is he cleared by you for left carotid endarterectomy scheduled for 04/21? Thanks DO Marlyn Vuong Kimberly C, DO 04/16/2025 4:13 PM Signed Please call pt - he will need to postpone his carotid artery surgery. He will need to see the manager support services for a heart catheterization before he can be cleared for the surgery. He should call the office of Dr. Rodriguez for f/u instructions regarding his abnormal stress test DO Shana Vuong Mary, MA 04/16/2025 4:43 PM Signed Tried calling pt. (It is devan painting .) it is full. Please try again tomorrow. MEENA Kennedy Janie, MA 04/17/2025 3:58 PM Signed Tried to call patient no answer and not able to leave message. Left message informing patient's vascular office that of all information and that Dr. Cline will not be clearing patient until he has a heart catheterization. MEENA Jones Janie, MA 04/18/2025 11:37 AM Signed Received fax from [facility] Dr. Corral office visit note clearing patient for surgery. Placed on Dr. Cline desk to be reviewed. MEENA Jones Janie, MA 04/18/2025 12:09 PM Signed Karina from [facility] called back stating that Dr. Corral [...] 1 TABLET BY MOUTH TWICE DAILY - lisinopril-hydroCHLOROt hiazide (ZESTORETIC) 20-12.5 mg per tablet TAKE 2 [...] Status:Closed by YURY ERWIN on 04/17/25 Normal [facility] Type AND Screen - PAT ONLYon 04-08-2025 ABO and Rh group Nom (Bld) Blood group AB Rh(D) positive Normal [facility] Comment on above: Order Comment: Surge ry Date: 04/21/25 Reason for Laboratory Test PREOP [id number] N/A N N S LEFT CAROTID ENDARTERECTOMY Performed By: #### B TSPAT #### [facility] [address] [facility]. [place], [place], [address] MR/PAT.YVESon 04-03-2025 MR/PAT.YVES [facility] Medical Records Department [address] [place] [address] PAT - Anesthesia 04/03/25 1636 MR#: [id number] Acct: [id number] Name: MITCHLITA Lamar Rep #: [id number] : 1945 79 From: Ac Rodríguez MD PCP: Dr. Renetta Cline, DO Status:PRE IN Y Race: C Location: [facility] Pre-Assessment Diagnosis/Proposed Procedure Planned Operative Procedure(s): LEFT ENDARTERECTOMY CAROTID Anesthesia History Anesthesia History - car checker: Anesthesia History - car checker Hx Hospitalization No 04/03/25 11:09 Any Problems [...] take am of surgery PONV PONV - car checker: PONV - car checker Female No 04/03/25 11:09 HX of Motion Sickness No 04/03/25 11:09 HX of N/V After Surgery No 04/03/25 11:09 Non-Smoker No 04/03/25 11:09 Duration of Surgery greater Yes 04/03/25 11:09 than 60 minutes Number of Risk Factors 1 04/03/25 11:09 PONV Score Low Risk 04/03/25 11:09 Respiratory Assessment Respiratory Assessment - car checker: Respiratory Tract Infection Hx - car checker Hx Respiratory Tract Infection No 04/03/25 11:09 STOP Sleep Apnea STOP Sleep Apnea - car checker: STOP Sleep Apnea - car checker Hx Hypertension Yes: CONTROLLED WITH MEDS 04/03/25 [...] Tobacco Use History Tobacco Use History - car checker: Tobacco Use History - car checker Tobacco Use Smoking Status Heavy Smoker (>10/day) 04/03/25 11:09 Hx Tobacco Use Yes 04/03/25 11:09 Years Smoking Packs Smoked per Day Smoking Cessation Date was within the last 15 years Hx Smoking Cessation Date Hx Smoking Cessation Counseling Hematologic Medial History Hematologic Hx - car checker: Hematologic Medical Hx - seam stayer Hx of Blood Transfusion No 04/03/25 11:09 [...] answer at this time (ie. confused, unrespo /Reproduction History /Reproductive History - car checker: /Reproductive Hx- car checker Hx Now No 04/03/25 11:09 Gestational Age (in weeks): EDC: Hx Hx Para Hx Section SAB No 04/03/25 11:09 [facility] Medical History (Updated 04/03/25 @ 11:18 by [...] tab PO QDAY BP 02/27/25 Unknown History mg-hydrochlorothiazide 12.5 mg tablet metoprolol succinate 25 mg 25 mg PO BID BP 02/27/25 Unknown H istory tablet,extended release 24 hr clopidogrel 75 mg tablet (Plavix) 75 mg PO DAILY PVD 90 days #90 ta bs 03/25/25 Unknow (more content not included)... Normal [facility] Basic Metabolic Profile (BMP )on 03-25-2025 BUN/CRE 12.1 RATIO Normal 03-31 [facility] Comment on above: Performed By: #### L 100.0100, L300.4310, L500.2500, L500.3400, L300.3900 #### [facility] [address] [place], [address] Calcium [Mass/Vol] 9.7 mg/dL Normal 7.6-11.0 [facility] Comment on above: Performed By: #### L 100.0100, L300.4310, L500.2500, L500.3400, L300.3900 #### [facility] [address] [place], [address] Chloride [Moles/Vol] 96 mmol/L Low 98-108 [facility] Comment on above: Performed By: #### L 100.0100, L300.4310, L500.2500, L500.3400, L300.3900 #### [facility] [address] [place], [address] CO2 [Moles/Vol] 24.1 mmol/L Normal 21.0-32.0 [facility] Comment on above: Performed By: #### L 100.0100, L300.4310, L500.2500, L500.3400, L300.3900 #### [facility] [address] [place], [address] Creatinine [Mass/Vol] 0.72 mg/dL Normal 0.70-1.20 [facility] Comment on above: Performed By: #### L 100.0100, L300.4310, L500.2500, L500.3400, L300.3900 #### [facility] [address] [place], [address] GAP 14 Normal 5-15 [facility] Comment on above: Performed By: #### L 100.0100, L300.4310, L500.2500, L500.3400, L300.3900 #### [facility] [address] [place], [address] GFR/1.73 sq M.predicted among non-blacks MDRD (S/P/Bld) [Vol rate/Area] 94 mL/min/{1.73_m2} Normal >60 [facility] Comment on above: Result Comment: mL/m in/1.73m2 CKD-EPI Creatinine Equation (2020) Performed By: #### L 100.0100, L300.4310, L500.2500, L500.3400, L300.3900 #### [facility] [address] [place], [address] Glucose [Mass/Vol] 124 mg/dL High 70-99 [facility] Comment on above: Performed By: #### L 100.0100, L300.4310, L500.2500, L500.3400, L300.3900 #### [facility] [address] [place], [address] Potassium [Moles/Vol] 3.9 mmol/L Normal 3.3-5.1 [facility] Comment on above: Performed By: #### L 100.0100, L300.4310, L500.2500, L500.3400, L300.3900 #### [facility] [address] [place], [address] Sodium [Moles/Vol] 134 mmol/L Normal 133-145 [facility] Comment on above: Performed By: #### L 100.0100, L300.4310, L500.2500, L500.3400, L300.3900 #### [facility] [address] [place], [address] Urea nitrogen [Mass/Vol] 9 mg/dL Normal 4-19 [facility] Comment on above: Performed By: #### L 100.0100, L300.4310, L500.2500, L500.3400, L300.3900 #### [facility] [address] [place], [address] CBC W/Diff, Automatedon 10-1 Absolute Lymph 1.92 X10 3/uL Normal 0.83-4.51 [facility] Comment on above: Performed By: #### L 100.0100, L300.4310, L500.2500, L500.3400, L300.3900 #### [facility] [address] [place], [address] Absolute Neut 4.3 X10 3/uL Normal 2.0-7.7 [facility] Comment on above: Performed By: #### L 100.0100, L300.4310, L500.2500, L500.3400, L300.3900 #### [facility] [address] [place], [address] Basophils/100 WBC (Bld) 1.0 % Normal 0-1 [facility] Comment on above: Performed By: #### L 100.0100, L300.4310, L500.2500, L500.3400, L300.3900 #### [facility] [address] [place], [address] Eosinophils/100 WBC (Bld) 1.3 % Normal 0-5 [facility] Comment on above: Performed By: #### L 100.0100, L300.4310, L500.2500, L500.3400, L300.3900 #### [facility] [address] [place], [address] Erythrocyte distribution width (RBC) [Ratio] 12.3 % Normal 11.6-14.6 [facility] Comment on above: Performed By: #### L 100.0100, L300.4310, L500.2500, L500.3400, L300.3900 #### [facility] [address] [place], [address] Hematocrit (Bld) [Volume fraction] 44.7 % Normal 40-54 [facility] Comment on above: Performed By: #### L 100.0100, L300.4310, L500.2500, L500.3400, L300.3900 #### [facility] [address] [place], [address] Hemoglobin (Bld) [Mass/Vol] 16.1 g/dL Normal 13.0-16.5 [facility] Comment on above: Performed By: #### L 100.0100, L300.4310, L500.2500, L500.3400, L300.3900 #### [facility] [address] [place], [address] IG% 0.300 Normal 0.0-0.9 [facility] Comment on above: Result Comment: IG% - Immature Granulocytes (promyelocytes, myelocytes and metamyelocytes) > 1% indicates that a LEFT SHIFT is Present. Performed By: #### L 100.0100, L300.4310, L500.2500, L500.3400, L300.3900 #### [facility] [address] [place], [address] Lymphocytes/100 WBC (Bld) 27.1 % Normal 19-41 [facility] Comment on above: Performed By: #### L 100.0100, L300.4310, L500.2500, L500.3400, L300.3900 #### [facility] [address] [place], [address] MCH (RBC) [Entitic mass] 34.3 pg High 27.0-32.0 [facility] Comment on above: Performed By: #### L 100.0100, L300.4310, L500.2500, L500.3400, L300.3900 #### [facility] [address] [place], [address] MCHC (RBC) [Mass/Vol] 36.0 g/dL Normal 32-36 [facility] Comment on above: Performed By: #### L 100.0100, L300.4310, L500.2500, L500.3400, L300.3900 #### [facility] [address] [place], [address] MCV (RBC) [Entitic vol] 95.1 fL High 80-94 [facility] Comment on above: Performed By: #### L 100.0100, L300.4310, L500.2500, L500.3400, L300.3900 #### [facility] [address] [place], [address] Monocytes/100 WBC (Bld) 10.2 % High 0-10 [facility] Comment on above: Performed By: #### L 100.0100, L300.4310, L500.2500, L500.3400, L300.3900 #### [facility] [address] [place], [address] Neutrophils/100 WBC (Bld) 60.1 % Normal 47-70 [facility] Comment on above: Performed By: #### L 100.0100, L300.4310, L500.2500, L500.3400, L300.3900 #### [facility] [address] [place], [address] Nucleated RBC (Bld) [#/Vol] 0 10*3/uL Normal 0-5 [facility] Comment on above: Performed By: #### L 100.0100, L300.4310, L500.2500, L500.3400, L300.3900 #### [facility] [address] [place], [address] Platelet mean volume (Bld) [Entitic vol] 8.9 fL Normal 6.2-12.0 [facility] Comment on above: Performed By: #### L 100.0100, L300.4310, L500.2500, L500.3400, L300.3900 #### [facility] [address] [place], [address] Platelets (Bld) [#/Vol] 407 10*3/uL Normal 150-450 [facility] Comment on above: Performed By: #### L 100.0100, L300.4310, L500.2500, L500.3400, L300.3900 #### [facility] [address] [place], [address] RBC (Bld) [#/Vol] 4.70 10*6/uL Normal 4.6-6.2 [facility] Comment on above: Performed By: #### L 100.0100, L300.4310, L500.2500, L500.3400, L300.3900 #### [facility] [address] [place], [place], [address] RDW SD 43.3 fl Normal 35.1-43.9 [facility] Comment on above: Performed By: #### L 100.0100, L300.4310, L500.2500, L500.3400, L300.3900 #### [facility] [address] [place], [place], [address] WBC (Bld) [#/Vol] 7.1 10*3/uL Normal 4.4-11.0 [facility] Comment on above: Performed By: #### L 100.0100, L300.4310, L500.2500, L500.3400, L300.3900 #### [facility] [address] [place], [place], [id number] [facility] 03-25-2025 [facility] Telephone (AGFAMPLE) LITA MEYER ([id number]) 1945 M Date Time Provider Department 03/25/25 RENETTA CLINE During your visit today, we recorded the following information about you: Yury Erwin MA 03/25/2025 2:22 PM Signed [facility] Surgical Clearance for Left Endarterectomy on 04/21/[address] Marlyn garcia folder to be filled out and signed. Krystal from [facility] also left message regarding this and states [...] Assessed Reason for Visit: Forms [913] Cmt: [facility] Surgical Clearance for Left Endarterectomy on 04/21/25 Prescriptions as of 04/02/2025 - metoprolol succinate ER (TOPROL XL) 25 mg 24 hr tablet Take 1 tablet by mouth two times a day. - cilostazol (PLETAL) 100 mg tablet Take 1 tablet by mouth two times a day. - atorvastatin (LIPITOR) 40 mg tablet Take 1 tablet by mouth once daily. - lisinopril-hydroCHLOROt hiazide (ZESTORETIC) 20-12.5 mg per tablet TAKE 2 [...] Status:Closed by YURY ERWIN on 03/28/25 Normal [facility] Cardiology Visit Reporton Cardiology Visit Report [facility] [address] [place] [address] OFFICE VISIT Date of Service: 03/25/25 MR#: [id number] Acct: [id number] Name: LITA MEYER Rep #: [id number] : 1945 Provider: Dr. Kim petty MD Age/Sex: 79/M Location: [facility] Status: Signed HPI HPI History of Present [...] in an extended care facility in the [facility] he has no children he is never [...] Pre-Op Cardiovasc. Assessment, FOR LICE, SEE NOTE [place] Flour Required: No Accompanied by: Self Is patient [...] tab PO QDAY 02/27/25 03/25/25 Hi story mg-hydrochlorothiazide 12.5 mg tablet metoprolol succinate 25 mg 25 mg PO BID 02/27/25 03/25/25 His tory tablet,extended release 24 hr clopidogrel 75 mg tablet (Plavix) 75 mg PO DAILY 90 days #90 tabs 1 03/25/25 Rx Ejection fraction %: 65 Have [...] Eyes General: (more content not included)... Normal [facility] Liver Profileon 03-25-2025 Albumin [Mass/Vol] 4.4 g/dL Normal 3.4-4.8 [facility] Comment on above: Performed By: #### L 100.0100, L300.4310, L500.2500, L500.3400, L300.3900 #### [facility] [address] [place], [address] ALK PHOS 92 U/L Normal 40-129 [facility] Comment on above: Performed By: #### L 100.0100, L300.4310, L500.2500, L500.3400, L300.3900 #### [facility] [address] [place], [address] ALT [Catalytic activity/Vol] 17 U/L Normal <=46 [facility] Comment on above: Performed By: #### L 100.0100, L300.4310, L500.2500, L500.3400, L300.3900 #### [facility] [address] [place], [address] AST [Catalytic activity/Vol] 18 U/L Normal <=37 [facility] Comment on above: Performed By: #### L 100.0100, L300.4310, L500.2500, L500.3400, L300.3900 #### [facility] [address] [place], [address] Bilirubin [Mass/Vol] 0.59 mg/dL Normal 0.00-1.30 [facility] Comment on above: Performed By: #### L 100.0100, L300.4310, L500.2500, L500.3400, L300.3900 #### [facility] [address] [place], [address] Bilirubin.direct [Mass/Vol] 0.25 mg/dL Normal 0.00-0.30 [facility] Comment on above: Performed By: #### L 100.0100, L300.4310, L500.2500, L500.3400, L300.3900 #### [facility] [address] [place], [address] Globulin (S) [Mass/Vol] 3.2 g/dL Normal 2.2-4.2 [facility] Comment on above: Performed By: #### L 100.0100, L300.4310, L500.2500, L500.3400, L300.3900 #### [facility] [address] [place], [address] T PROT 7.6 g/dL Normal 5.9-8.4 [facility] Comment on above: Performed By: #### L 100.0100, L300.4310, L500.2500, L500.3400, L300.3900 #### [facility] [address] [place], [address] Partial Thromboplast Timeon 03-25-2025 aPTT Coag (Bld) [Time] 29.2 s Normal 24.1-36.2 [facility] Comment on above: Performed By: #### L 100.0100, L300.4310, L500.2500, L500.3400, L300.3900 #### [facility] [address] [place], [address] Prothrombin Time w/INRon INR Coag (PPP) [Relative time] 1.0 {INR} Normal [facility] Comment on above: Performed By: #### L 100.0100, L300.4310, L500.2500, L500.3400, L300.3900 #### [facility] [address] [place], [address] PT Coag (PPP) [Time] 13.0 s Normal 11.7-14.9 [facility] Comment on above: Performed By: #### L 100.0100, L300.4310, L500.2500, L500.3400, L300.3900 #### [facility] [address] [place], [address] MR/BMSSteffany 03-19-2025 MR/BMS.BVS [facility] [address] [place], [place] [address] OFFICE VISIT Date of Service: 03/19/25 MR#: [id number] Acct: [id number] Name: LITA MEYER Rep #: [id number] : 1945 Provider: Dr. Rojas Marion MD [...] tab PO QDAY 02/27/25 03/19/25 Hi story mg-hydrochlorothiazide 12.5 mg tablet metoprolol succinate 25 [...] >70% stenosis bilateral and further evaluated at [facility] vascular surgery with a CTA. This confirm right 80% stenosis, left 90% stenosis. He had discussed surgery with them but to be performed at [place]. He would prefer to stay closer to home so he is trasnferring care to [place]. No prior neck surgery/XRT, no limitation to [...] no audible (more content not included)... [facility] (VASSMD) LITA MEYER ([id number]) 1945 M Date Time Provider Department 02/14/25 ANTHONY EGAN During your visit today, we recorded the following information about you: Sandi Soto 02/14/2025 10:43 AM Sabas Bach from [facility] received a referral for this patient to be seen in their offices. Mikala requesting recent testing reports to be faxed to the office at [phone]. Reports faxed via [employer]. Allergies As of Date: 02/14/2025 (No Known [...] 1 tablet by mouth once daily. - lisinopril-hydroCHLOROt hiazide (ZESTORETIC) 20-12.5 mg per tablet TAKE 2 [...] Encounter Status:Closed by SANDI SOTO on 02/14/[address] [facility] CNOVon 02-07-2025 CNOV Office Visit (DALTOND ) LITA MEYER ([id number]) 1945 M Date Time Provider Department 02/07/25 1:00 PM ANTHONY EGAN During your visit today, we recorded the following information about you: Pulse Blood pressure 116/minute 137/83 Anthony Egan MD 02/07/2025 1:42 PM Signed [facility] ESTABLISHED CLINIC VISIT Lita Meyer [id number] HISTORY OF PRESENT ILLNESS: Mr. Meyer is [...] Take 1 tablet by mouth once daily. lisinopril-hydroCHLOROt hiazide (ZESTORETIC) 20-12.5 mg per tablet TAKE 2 [...] benefits (long-ter (more content not included)... Normal [facility] ECHOon 01-31-2025 CONCLUSIONS: - Exam indication: [...] * * * Final * * * [facility] Echocardiography Report: Transthoracic Echo [facility] Date of service: 01/31/2025 12:03:34 PM Ordering physician: ANTHONY EGAN Exam indication: Hypertension Technologist: Liliana Hensley [facility] Interpreting physician: Hank Love MD PATIENT: Name: [...] effusion. There is an epicardial fat pad. [facility] Echocardiography Echocardiography Report: Transthoracic Echo [facility] Date of service: 01/31/2025 12:03:34 PM Ordering physician: ANTHONY EGAN Exam indication: Hypertension Technologist: Liliana Hensley [facility] Interpreting physician: Hank Love MD PATIENT: Name: [...] * * * Final * * * [employer] : [id number] ISUID Normal [facility] CARDIAC PERF STRESS/PHARM on 01-30-2025 RI CARDIAC PERF STRESS/PHARM * * *Final Report* * * DATE OF EXAM: Jan 30 2025 2:45PM SENG 0006 - NM CARDIAC PERF STRESS/PHARM / PROCEDURE REASON: multiple diagnoses * * * * Physician Interpretation * * * * RI CTAC Report: [facility] Date of service: 01/30/2025 1:00:42 PM CTAC interpreting physician: Hank Love MD PATIENT: Name: MR. LITA MEYER Age: 79 years Gender: M 1. Incidental Findings from limited non-diagnostic CTAC: - Coronary calcifications visualized. - Mitral annulus calcification. * * * Final * * * ---- PATIENT: Name: MR. LITA MEYER Age: 79 [...] later. See administered radiotracer and doses below. [facility] Date of service: 01/30/2025 1:00:42 PM [...] * * * Final * * * ---- Stress ECG Report: [facility] Date of service: 01/30/2025 1:00:42 PM Ordering physician: JUAN MIGUEL RODRIGUEZ information systems security specialist: Federica Hidalgo Anesthesiology Physician Assistant: Анна Black Interpreting physician: Terri Kearney MD [...] 135/97 mmHg. The double product achieved was [address]. Medications: (more content not included)... [facility] Office Visit (CARDMM ) LITA MEYER ([id number]) 1945 M Date Time Provider Department 01/28/25 1:30 PM JUAN MIGUEL RODRIGUEZ During your visit today, we recorded the following information about you: Pulse Blood pressure Weight Height 108/minute 138/72 95.4 kg 1.74 m Juan Miguel Rodriguez MD 01/31/2025 4:23 PM Addendum [facility] Avinash Paredes Department of Cardiovascular Medicine SECTION [...] to be scheduled for carotid endarterectomy at [facility] to address bilateral carotid artery stenosis, [...] Take 1 tablet by mouth once daily. lisinopril-hydroCHLOROt hiazide (ZESTORETIC) 20-12.5 mg per tablet TAKE 2 [...] mmHg. La (more content not included)... Normal [facility] [id number] 01-28-2025 ECG01 Ventricular Rate : 1 08 BPM Atrial Rate : 108 BPM P-R Interval : 196 ms QRS Duration : 94 ms Q-T Interval : 342 ms QTC Calculation(Bazett) : 458 ms Calculated P Kermit : 44 degrees Calculated R Kermit : -26 degrees Calculated T Kermit : 70 degrees SINUS TACHYCARDIA POSSIBLE LEFT ATRIAL ENLARGEMENT ABNORMAL ECG Confirmed by MD RODRIGUEZ QARAB ([id number]), sound editor AMER[employer] CANO ([id number]) on 01/29/2025 7:48:24 AM NAME : LITA MEYER PID : [id number] : 1945 Gender : Male Race : ORD : Procedure Date : Jan 28 2025 13:17:18 Edit Date : Jan 29 2025 07:48:27 Diagnosis: SINUS TACHYCARDIA POSSIBLE LEFT ATRIAL ENLARGEMENT ABNORMAL ECG Confirmed by MD RODRIGUEZ QARAB ([id number]), sound editor AMERICO CANO ([id number]) on 01/29/2025 7:48:24 AM Test Reason : Location : 211 : [facility] Overread By : MD RODRIGUEZ QARAB Edited By : AMERICO CANO Referred By : ANTHONY EGAN Acquired by : Lindy LÓPEZ [facility] CT Neck W contrast Brennan - [...] with mild narrowing on the left and ixsa-mr-yfzofzsg on the right. The anterior and middle [...] patent. Both posterior cerebral arteries are patent. Child Welfare Caseworker (topogram) images: No additional findings. [employer] RADIOLOGY SYNGO Provider, [facility] - 12/26/2024 * * *Final Report* * * DATE OF EXAM: Dec 24 2024 2:10PM [facility] [place] [place] CTA NECK W IVCON / [...] with mild narrowing on the left and silb-sb-znksqboc on the right. The anterior and middle [...] patent. Both posterior cerebral arteries are patent. Child Welfare Caseworker (topogram) images: No additional findings. IMPRESSION IMPRESSION: [...] cm. These could (more content not included)... [facility] CTA Head Arteries W contrast Brennan 12-26-2024 * * *Final Report* * * DATE OF EXAM: Dec 24 2024 2:10PM [facility] [place] - CTA HEAD W IVCON / [...] with mild narrowing on the left and rslk-yo-mkpjuoks on the right. The anterior and middle [...] patent. Both posterior cerebral arteries are patent. Child Welfare Caseworker (topogram) images: No additional findings. [employer] RADIOLOGY SYNGO Provider, [facility] - 12/26/2024 * * *Final Report* * * DATE OF EXAM: Dec 24 2024 2:10PM [facility] 0022 - CTA HEAD W IVCON / [...] with mild narrowing on the left and ksiv-ow-tncvpgwb on the right. The anterior and middle [...] patent. Both posterior cerebral arteries are patent. Child Welfare Caseworker (topogram) images: No additional findings. IMPRESSION IMPRESSION: [...] cm. These could (more content not included)... [facility] No Panel Informationon 12-26 IMPRESSION: [...] between software and imaging review: Not Applicable. Director Mortgage: BAKARI Transcribe Date/Time: Dec 26 2024 2:25P Dictated by : EDMAR CR MD This examination was interpreted and the report reviewed and electronically signed by: EDMAR CR MD on Dec 26 2024 2:56PM [facility] [employer] RADIOLOGY SYNGO No Panel InformationOrdered By: [facility] Provider on 12-26-2024 [facility] CTA HEAD W IVCONon CTA HEAD W IVCON * * *Final Report* * * DATE OF EXAM: Dec 24 2024 2:10PM [facility] [place] - CTA HEAD W IVCON / [...] with mild narrowing on the left and gbix-gu-aurukqbm on the right. The anterior and middle [...] patent. Both posterior cerebral arteries are patent. Child Welfare Caseworker (topogram) images: No additional findings. IMPRESSION: 1. [...] software: Not (more content not included)... Normal [facility] CTA NECK W IVCONon 5 CTA NECK W IVCON * * *Final Report* * * DATE OF EXAM: Dec 24 2024 2:10PM [facility] [place] - CTA NECK W IVCON / [...] with mild narrowing on the left and jjof-mi-dqkfzkgy on the right. The anterior and middle [...] patent. Both posterior cerebral arteries are patent. Child Welfare Caseworker (topogram) images: No additional findings. IMPRESSION: 1. [...] software: Not (more content not included)... Normal [facility] Creatinine and Glomerular fi ltration rate.predicted panel (S/P/Bld)on 12-24-2024 Creatinine [Mass/Vol] 0.63 mg/dL Low 0.73 - 1.22 mg/dL [facility] GFR/1.73 sq M.predicted among non-blacks MDRD (S/P/Bld) [Vol rate/Area] 98 mL/min/{1.73_m2} - PINF [facility] Comment on above: Estimated Glomerular [...] Interpretation and review of laboratory results Abnormal [facility] Creatinine [Mass/Vol] 0.63 mg/dL Low 0.73-1.22 [facility] Comment on above: Order Comment: Brennan seth Type: BLOOD SPECIMEN Ordering Facility: [facility] Address: [address] [place], [place] [id number] Performed By: #### 4 5066-8 #### [facility] CLIA [id number] [address] [place] [address] [place] eGFRcr SerPlBld CKD-EPI 2020 98 mL/min/1.73m??? Normal >=60 [facility] Comment on above: Order Comment: Brennan seth Type: BLOOD SPECIMEN Ordering Facility: [facility] Address: [address] [place] [address] Result Comment: [place] mated Glomerular Filtration Rate [...] GFR. Performed By: #### 4 5066-8 #### [facility] CLIA [id number] [address] [place] [address] [place] No Panel Informationon 12-24 Radiology Study observation (narrative) [facility] CNOVon 12-19-2024 CNOV Office Visit (VASSMD ) LITA MEYER ([id number]) 1945 M Date Time Provider Department 12/19/24 12:30 PM ANTHONY EGAN During your visit today, we recorded the following information about you: Pulse Blood pressure 102/minute 192/83 Anthony Egan MD 01/09/2025 4:30 PM Signed [facility] ESTABLISHED CLINIC VISIT Lita Meyer [id number] HISTORY OF PRESENT ILLNESS: Lita Meyer is a 79-year-old male, with a history of carotid artery stenosis, presenting for follow-up. Lita reports feeling well overall and denies experiencing any pain while walking. He does report dyspnea on exertion, particularly when walking at a fast pace, but denies any chest pain, palpitations, or dyspnea at rest. He also denies any history of CVA or CT. He denies any leg swelling, he does [...] Take 1 tablet by mouth once daily. lisinopril-hydroCHLOROt hiazide (ZESTORETIC) 20-12.5 mg per tablet TAKE 2 [...] at origin. (more content not included)... Normal [facility] Gayle [facility]20[facility] LITA MEYER ([id number]) 1945 M Date Time Provider Department 12/10/24 [...] 1 tablet by mouth once daily. - lisinopril-hydroCHLOROt hiazide (ZESTORETIC) 20-12.5 mg per tablet TAKE 2 [...] Status:Closed by MICA WILLIS on 12/10/24 Normal [facility] PVR LEG BIANCA VAS LABon 2024 PVR LEG [facility] LAB Non-Invasive Vascula r Laboratory [facility] Office Lower Extremity Arterial Physiology [...] Interpreting physician: Mulu Ocampo DO Final CC [employer] : [id number] ISUID See Link below for Image Normal [facility] US CAROTID ARTERIES BIANCA VAS LABon 12-10-2024 US CAROTID ARTERIES BIACNA VAS LAB Non-Invasive Vascular Laboratory [employer] [facility] Office Carotid Duplex Bilateral/Complete Date [...] interpretation criteria are used as recommended by [facility] Accreditation Commission. Julisa was notified with results at 4:15pm. RIGHT [...] physician: Ananth Bryant MD, DONNA Final CC [employer] : [id number] ISUID See Link below for Image Normal [facility] CNOVon 11-01-2024 CNOV Office Visit (VASSMD ) LITA MEYER ([id number]) 1945 M Date Time Provider Department 11/01/24 12:30 PM ANTHONY EGAN During your visit today, we recorded the following information about you: Pulse Blood pressure 117/minute 129/81 Anthony Egan MD 11/17/2024 7:23 PM Signed [facility]PART[facility] VASCULAR SURGERY OUTPATIENT VISIT DATE November 01, 2024 OUTPATIENT VISIT TYPE CONSULTATION PRIMARY CARE PHYSICIAN: Renetta Cline DO REFERRING PROVIDER: Renetta Cline [address] [place] [address] Consult requested for an opinion regarding the [...] rapid walking. He denies any history of CT, CVA, TIA, or surgeries, except for a [...] OF A TABLET BY MOUTH every afternoon. lisinopril-hydroCHLOROt hiazide (ZESTORETIC) 20-12.5 mg per tablet TAKE 2 [...] SUPERFICIAL F (more content not included)... Normal [facility] CNOVon 2024 CNOV Office Visit (WANDER URIARTE) LITA MEYER ([id number]) 1945 M Date Time Provider Department 09/17/24 [...] history review Reviewed and updated problem list, medical/surgical/family /social history, medications, and allergies. Opioid use review [...] aspirin every day Referring Provider: RENETTA CLINE [[id number]] Allergies As of Date: 2024 (No Known Allergies) Date Reviewed: 2024 Reviewed by: Renetta Cline DO - Fully Assessed Reason for Visit: Medicare Wellness Exam [4060] Primary Visit Diagnosis:Medicare annual wellness visit, subsequent [Z00.00] Other Visit Diagnoses:Peripheral artery disease [I73.9] Essential hypertension [I10] Mixed hyperlipidemia [E78.2] Smoker [F17.200] Obesity, Class I, BMI 30-34.9 [E66.811] Order(s):ADVANCE CARE PLAN DISCUSSION [4039742] Order #: [id number]: 1 aspirin, enteric coated (ADULT LOW DOSE ASPIRIN) 81 mg EC tabletTake 1 tablet by mouth once daily.Disp: Rfl: CONSULT TO VASCULAR MEDICINE [19990916] Order #: [id number]: 1 FUTURE Prescriptions as of 09/25/2024 - aspirin, enteric coated (ADULT LOW DOSE ASPIRIN) 81 mg EC tablet Take 1 tablet by mouth once daily. - lisinopril-hydroCHLOROt hiazide (ZESTORETIC) 20-12.5 mg per tablet Take 2 [...] Obesity, Class I, BMI 30-34.9 [E66.811] 10/31/2017 Emissions Testing And Repair Technician (more content not included)... Normal [facility] SURGICAL PATHOLOGYOrdered By : William Lai on 10-14-2023 Case Report Surgical Pathology Report Case: [id number] Authorizing Provider: Scotty Mejia MD Collected: 10/11/2023 11:20 AM Ordering Location: Urology Received: 10/12/2023 08:22 AM Pathologist: William Lai MD Specimens: A) - Prostate, Left, Base, Biopsy, 1 B) - Prostate, Left, Mid, Biopsy, 1 C) - Prostate, Left, [place], Biopsy, 1 D) - Prostate, Left, Lateral Base, Biopsy, 1 E) - Prostate, Left, Lateral Mid, Biopsy, 1 F) - Prostate, Left, Lateral [place] , Biopsy, 1 G) - Prostate, Right, Base, Biopsy, 1 H) - Prostate, Right, Mid, Biopsy, 1 I) - Prostate, Right, [place], Biopsy, 1 J) - Prostate, Right, Lateral Base, Biopsy, 1 K) - Prostate, Right, Lateral Mid, Biopsy, 1 L) - Prostate, Right, Lateral [place], Biopsy, 1 [facility] Work Phone: Clinical History g6zbrZSoUMQls3euVOYf bGF rMiLpDgHeHvLyJsh3YCNbjt S8Ouh3DIPxKQgxoI2yLADfM EhgJ9pegeFnmSYmIAIfw2Kn yw2iWKYpoKFil8X7ITJjDv8 vZGVybiBcZmNoYXJzZXQwIE CiiSYcL475DWKxWZetOXIcH WCsMdQrYN6CO4YFDHTJOKVN PcDNRa1LVXJPTIDPNX2ZM3e ccGFyIH0= [facility] Work Phone: FINAL DIAGNOSIS w6ykgISdFVFxdAWzKLEs NVx hkpWyAJGjbKHmV1TlnqxbWZ pqCU0kDA4cbBdisOCkhTWwA ZSyFuLhr0mrz795hEVyo4dr LJCVbttgvAy6kAniI90xq3O 1NpxkY41uiJWwCPE5FNHkZI UbbLPcIQJqRYY8BRDuzHVzR 5lwBFWxPN4wgqzdLSxoPHta QZXcvXR9XDYllSLvE9BeJZN lFRxoXEUasgq8WyFeOc9zdZ VyeTcyMFxwYXJkXHBsYWluX BKnLhAaHK0ySFMgt4HkeHYp UGndYtCmUhNpWYseR81nAJA efI9co5k2CBbnphOhPWIFZL 4dQ14zmAJqw0ZfxUvqPFFum 0V1OM9yiBoqREdeeP4xDOTp LZYei1T3UXZeRUEhFMV2DL1 pILhzW00fDXBxmM0zv6m7DD vidsCiQCDTXR2gO82duBPan 4UofSrrMWHgo0X4RN4ryPhc RFpeiT8gQWZnKHTql4X7OVA wGIUqJGG5VELsKDezXVXybj UjDfzyzAC8GqxsiH2qGU4xJ qJyaMuvLTMhi9N4GLQrFgR8 aXNzdWUuXGxpbmVcbGluZSB XAxOHap7qdXP5AGyjhGEpuN OvSXFzqhQhHGZhs6GiNPWeg zYyFxifpCQ5MtkzfB8hLR3k AwPczTypBDByo5Y7YELrIxQ 0aXNzdWUuXGxpbmVcbGluZS UTEiOQrg6jkUQ4VCcxjOUlr CZwUUQagtWfXR6pMHryR17s QWQehX9bf1w8TMbishFgMHL FSP4sE82vaIDqe4HtpLzrWQ Xuq0X9YF2poOatJAfcsD4aR CXtIRNrf1P9DLYoWKPoDTE6 BIfllWKdIExpRTFapFgyE74 tDRBtzV0ix6l9XZLiguCiZM EohfpabmLzig1rwTD8oHWih Gsye7NmSbbzXSJhhJXrDEmh QRWha1E5ILAyDLXcvMdwgHM lATWrPUQvv0CjYNGpp6UwkD pcbGluZSAtIEJlbmlnbiBwc o2osRC5mOJlvModx7CjTvyl aL4qVSxaqyPjVJ5cXOUil0N hdHKxOWHnC3i5JL8xMWxyT5 2oJIWxeE4gl9w0MYnutnUgC IPDGW4qR63jnKXsw4HraWat DPGjh4N0GG1vbGwwPBhlfE2 iEGdnBBArf1X4DZJcCIThxO srmSNsxSI8ERZvk8UgXATde 3BzeTpcbGluZSAtIEJlbmln cpLyue6kcCZ8hIItyOvjg9I oPwrhnK9nOAprrpJfGa4wQX Ldv1EjuSVhLIWyM4r1WMdqi VGdUDwsOwQhYImtO13dBQSi xV4qa1b8PMruvtPqRGOKRP9 eZ17fnAYgr9SceGgyAISup4 X5LM8aaQzhJCmrfI0oFJcmV ZKqf1O8XVXqNDBrhNfbzACu AJOjxhUkVE6tUEeeQ92cDXH cpS9uu3t2AZemnsNpQYWZHK 4sA25tkHVup4OygWyuOXJoc 2V0XZ9gxRzrDKqdsL4zJFtx XJXtc9E3NCPzWGPumBzapFA sYXRlcmFsIGFwZXgsIGNvcm ZrEcwjsHA0WpluTBSyTQIFI U2oP67jwWLxb5JkzZwjQVAc w1W5LO3znFPcLOFrznunQDT ccGFyXHBhcmRcYjAgSktNL0 ZTKVMmIbQ0JhFwWvBuNNojF XJ9 [facility] Work Phone: Gross Description b8fwwIMfUJIbbMQKIFJ5 MDJ pEI4pmTwzaXm1kCezSJZjuk K1cRKsEQyyn9uqOSB3z7poo mCVKfuxEWEvTZ8lTItbCBEu XX2iAsHlZUKxBbSdWIGknJP rcsChKhEcFOJbbBAzdDY5EQ GrDM7bghlmNIklIUxtAZLxy lK5XOYftBElH9ZeOSTkOR9a jzxtHAV2ETRBXphrUs8mdJS ibHtcZjFcZmNoYXJzZXQwXG Gav6uzjlLHpbranSl4jE2ZY FXcW0PmEZ2Td9xkNXVxmUEz FIK9BQtot1jsFElvEZH6QMH oUDRtNGDoFR5BSqDbZHCdHg DfXYgdAzA3HOo9THGKFNXcP QS9BKQ0BzZzUVj7WKzyCTbd aCBcXHQgMSBcXGZsIFxcbmN 1h6ebGYVclLJkRHY7RKbof7 vzPNquKHP2LSRcBuNqEBXfA P9VYjQvVUFkRiOvSSpdTaL4 YHu4GRVJCjTcQqOlVLB8CGg 9QpQpBFm2KYq2VQuTUsGwEe g8EvjuMxLeOXK0MMG2LMFgO HQgMiBcXHNzIDMgXFxmbCBc YR3ehEcjKDRtOH0PJTMaEJr oCWFmGgHuZZ7vEGFqt9AkcT VjSQiuWeLpWWCsd3BzLSCce 3BzeVxsdHJjaFxwYXIgDQpc cGFyZCANClxwbGFpblxsdHJ kwHqgquFeEXNnbOXCIUE4IW 7vBQQKAnbqbZWwBXAwa0ReL FxlcGljWHNhMzAgDQpcZnMy XSMJZFJjzRQgBQZiyjEyo3S kNMfwpvHbwrOtLWVjx89fKP LolgZpjiTpxWtcP1Omh5XpN 8auuT1priwlAFbcjVsjy0Ug HC8lZFA1vycyDjPdBeIljSA iApPvsVXmYnLjK40fAZJlxk RhpuDvr3NgJGLop2L4FHTeF BBaoltuIjjkYTDpleWvj1Jk jpC3XsNXf1XkzZk8WSN6Mc0 wkWXgZXAvrgNazqLaU3Dwp9 Z6wCFcTKulKNYdK03ts4SYx 7Xxq5lyjDmya8IkgMSfWC0o tPMmDS4Ad8eaFLJcxLJjLUO 0EVobg4wyCHufQMS1LXGyGa YxJHOxUA1ICdHgVZOcXiAoF WuxFwJ1PPf5DNEODyToXtHt VOH3CEc4KdHmSVn3HEu2YRj EUtKbKyu9BscrOcE6JmV9NX O4VFCrZJWxBwCeDZZiJUNfS RimlVCuLY7oxKkjHRMnRLJj WTW1VUEztVRHf8MtFUNpNQv nMpRkYqXWQbPLce7vfJR5NX tlLZOvnKpzUQqwLTWDzE0hr 1eodQKeGY4RQZCgxoMcFSln yJdvbT4czIGeD9tiTtFtJgq lcGljTmVzdERvYzEgDQpcbH HtxKUcTNPrSiIyHBYdP3xdB lHbXVUfDqStIINtE1nqZPBl VR9FEUYhEaTfJjTiTXm1BRK keD5xMa3juGPzfV3be90kBL BbfI0sP5KpfFLml80sANJlL FNsFK3tLWU5fBliYKSpB0Aj TAEyl3U0AXHxGMHopLNbjzn fZU04NTwvBD3dQTnpMO5uHO HtKHL6DJ1mCS0nLT4yUIFsd 29mdCBhbmQgZnJpYWJsZSBj p83xfQQ5YR5iiT1mDS65VUz hqXCzlNKarTN1RBJpiE6et5 7mABIee8BdyMWjQn3NVMVwc HESADB7ND7aKGsyVWPgV1Wf H9YgxiX7XVKkcbXZObteVri suRaxe8ZthUAwKXNkWBwmtI QgNTEwMDIgXFxkYiBPVlIgI tG1GjRnCqX1SbSuBLo3GOxz B5BRIDDxOKQiBSd1SaFoHgX 9UEu7KZQSFz5jDZU5WqC5JE n6EJLfPGE0XcihYPq5VCRmB CrlieDpGAyiPtuaCAxlV49z cGFyZFxzYjEwNVxlcGljWHN vZSO0RG2BKTPzVeBrCa7tBC Okr1HahRRdJXxaFrPaEZKgN ZutTSRyl8JpaDkwEYYrESmw cGFyZCANClxwbGFpblxsdHJ emKtcsbMtYGNixLVAJTS9RO 3cBVIXBaelfBXlSSRtr3YeQ QuprSvpGJZpUgDcf2TeNMxb cGljWHNhMzAgDQpcZnMyMCB VBIMpmJKsDXUupdMxo2AiBM ajwgIikiFtUTXxu63yBGMhp xVgekGzqNayT6Ubt2QdU3lf rM7tfxyoOVbheArwj3RtSK3 oTOH9wddqOsQiFzfgiCGoFm PvaKHwXpXcJ81cGMRdesYsa oJhu3HcIWUtp6T9BETjXJGp huheAhacAPJfgcOyo2QjtiW 4ToSCy9ZyjPs4WOW1Uh5bhD HaZVUlqiOvdmNqM1Sqx5U0x YUpLHjdSLCbN96th8PJn9Lx j0hmrIkxi4BgeXLbBP1qvJL zXS6Ru1gxQCTjhACmKIN3WM swk9tdSLwoHDN1TRPrOdGmI CQuVM6CVdPeTGTqWgAcOFhx GoW3XEi3DUFCXyEdPtQxEDL 0MXz0CfWsNLb0PCj4BXnMAa UqKls6ZwzkOlm0RoX1UBF0X SBcXHQgMiBcXHNzIDMgXFxm eHXhGG0zxHjrGJFkYKIoSSX 9NBLykKKPm0ZnHYGvIFbgOf QyGeNEMkUUfe1fxFD0MWpeT RYhvYaxEOU0CQSvoPZTHQAo JDXTcF4ke9uueAJwTZ4ATVW jbqOeMMrdsAruiX3tvBEbA8 hcZnMyMlxlcGljTmVzdERvY zEgDQpcbHRycGFyXHNiMzBc NKJhB6gmBwFhJOAtPwOyHVI nC6heJGGgPN8BCOReVnSbNb FeOUn4ERIklJ7hOf9noYMtv N7rk25oMHJpxP3aA4TflXOv y46hDCVcBWSoKD4dDVY2vOe gSHMhQ4IlMTLpx3C2PBLaSQ UdyKRucmnbFt5fOHwgUY5tI QccBT1mYSHfLIK7XC8bIC7f IV3rYZKod64wqQTpgbAiDbX cWAUfQXZom85cqYC6HO1mbM 5fLW78DCatlYJcaYAeaOB4G WVscB2tf86iBGUlp7FykOBn Bw8METTiaXMRMOT6TF3pNNi zTEQwN5RwK7GlgxH3INYkjm ASOfwkVuhstTfmp5CsaTTpZ HNnIFxcaWQgNTEwMDIgXFxk RvYTGlBsHuX3NuGyGpF9MhA dTPa5NOpnC1MSISSkYTHwSN z6JeG0IrF6YCw5YZPYUy7fR ZB9TwC6DUhlBXMbWFI5Ojah CMa4ZCVgGYfnpgVzIHukGzz eGMzqQ16qdUCfXVhjOwLmSK psdOsxMLBcOGQ1EU3KUIRnG uAqHP7pFAEac8MdmVLsTPjm ZnQsIExhdGVyYWwgTWlkLCB OaN8km1rkoSBlAD2KLWMeeu XkHZtlnSawgU9rwJCrY6zsF nMyMlxlcGljTmVzdERvYzEg DQpcbHRycGFyXHNiMzBcZXB fB9drSyDqZFUnFdGcLSZuX5 ufPMVqCD1LZSHwLwLaPgOuS Lt9PEQdrN8uGo1rxYGexQ8z e87qRQWeiH3jZ1ZekOTsk56 oACPzZLPiPU3bMWJ7fOfpTV ItB8WhKIGfv8B0DGTdROXkc QNxqwruTK0tTGypJW7aLAdh DE7qBDAfKGO6JJ0vUC4aOV2 eWPNaq09kaUVtroMxQrEgFM UtMEGkv10jrKP8YI0xlW5lN Q13QWheqVVdtCEylLN3DQXi qJ2ct72gZARvy3YwlDOiBb7 BHRSwgNEHZAX9MT7sPCqpXF IiL6WrJ3EimkP5GNQrwgQHC bexRdzwgPqei0OnoFKlOVEk IFxcaWQgNTEwMDIgXFxkYiB XXyLbFkQ9QaJtZkS5YcCiUH w0TAshF1LYQONnYBCyNOu0E mN1JqK0PKa7LPWPMa4xDCI4 SzN7YZlaRWHeFRE3XeyeNUq 0IDIgXFxzcyAzIFxcZmwgXF ygC63mnLGqSFqoUzNaWJydu EbkBPBdSFW0XH5XSPOtSeDq Ti8hIUQno1EulCNzSKniGaH sIExhdGVyYWwgQXBleCAsIE Dad1KjaOipKZMqBHqleNRqM CANClxwbGFpblxsdHJjaFxm npMgOKFtvMICVCD6FJ7pTRQ CLbosfJKaLFJez2QhWBkieN aiECEuZaWwp8SwUUfuvHuuE HNhMzAgDQpcZnMyMCBSZWNl mBKfOIJdqhHuo6RmCMxymbJ jpoJwJYLmb02jYIQiapCvtz DncCfjD2Sqm7FnG4vdzM1ez flvVTxmuYlib7IkRW9gLYO5 cmluZyAxLjggeCAwLjEgeCA rPdYvW24lDSNrgrMbmyStg8 BjAUMte7D9RARoMOEkjrznD vhoVMIylvVkp5LnpwD0KqXP l1KvtSq8IFM1Pw4mfKElKYV oejMbwnCjW9Qhe3G7qTGoQR kaHZJqA93bx7XUc0Ftr4gto Pstm2FpvLAlYF8jcPVmRJ0S w9scVMUyePGuTEZ5FLvni4d mOQihCET5DDXcGdNzYOUwVB 0PXuMqJYChRjAlSMtrScM5F Bb5GHCSNiYuHbXzGAA3CLw4 LtkcYDj5GWd4BNcRYoUzUqu 6ZanfHNAdAKW6HIG7WBGiKD QgMiBcXHNzIDMgXFxmbCBcX F4cuXauLUNkBSSaRER8JTFr iKIDp0YaGHLjDApjMfMvZrJ KFbPZkw5jtVK7SNfdAogcoR GlDYImz9XmVWMkx4RwiIglJ XIgDQpccGFyZCANClxwbGFp blxsdHJjaFxmczIyXGVwaWN UYDE0IL9zQKHUVxlolUQzEF Bbf8PyCXpszUymJOQpSaHul 2EzMFxlcGljWHNhMzAgDQpc ZnMyMCBSZWNlaXZlZCBpbiB px4AdVKuwmpSxypYkCLShb8 4iGQDjaqBhauRqmAxdT8Bcc 5QaG4xmjO9sfadkDFsasSlm c7DjYT5sNTH3ejtpXcHhZjO cvEQyZjJxrNIfFbZkH58hGP VwxtXlezPcs3KhTZCub6R0Y GFuZCBmcmlhYmxlIGNvbnNp q0VmnbF1LsPPz4KjkUr2USN 9Lb7osONaJUVfxqDwmmEcC0 Ham9V6eKZwHLkaUKZzZ09mf 0KAc0Iwr4bmyYqev4MrdHUy WR7ghORgQQ8Fd6rpHLQuxTG uKVO5MOljv5ezMGqdXQN9HG PrTgGoPUNuJN3PNhLhVWHeA sPuZMuiKqE5ZWm0FJJGUlSo ZcRwVQE6ZYy6RcbhGIl5CTr 3KFmQNhEtUco1RmlzMHT1Rh F6FSR6RHFuPSYpOcUtBLUjD OCeNZrnmCLvOP5kmWmtTPGk TMHfYNT5COMhdDBZr6RiVGA tVEpzAqRkZxCNEoNSuw3zpK Q1HOuaRrddbDPaAC0gTGrsU miecYH9JBBvsyIJRpvqFWZw FZ9QTPEnALdcOWf4dfGdKEM pUaUlEODhI39ze6MHf9JfUF 1ULXa5uqQsrsgwYeBzZHKev FWEl2VgYEhtQEXbXMMaeZDY e1WrKYELOlidbhQhCDWoH4D iywEmFMusNWDfcy4lsGrcVA 4hUBFun2JqcaugZFcaFH2zB SBwaWVjZSBvZiBjeWxpbmRy pQOryMK9tKZkqFNnyPBou6A idN6rCXZhYrU4ZIDgPND4ID AuMSBjbSwgdGFuIGFuZCBvZ hEhZTRyDzWdGL3eNEIczNIf mACpK32si0lisVRoT1evMBD zpGCpbPxaq1KpuSq9iULbSE dcLQ7nLRTjVWVnKDP9DS7AB mhpvZqoDkZapBPdRkF9CKOo cHTpNXC3NT3mzRigIICkPTz 0FCxkMVJoC5RaD5GgOMcsIk BcXGlkIDUxMDAyIFxcZGIgT 6NGIVVuZdJqLVM8CUKlSRv2 ANz5BN2XXrEaVTN3AER1Mak 4BQQiHLu3UHmzHV7YDTCnKk DfQGZ8HEGlCKE5LGL4BUxop OLuNKoli1UlTgAtNURqCLxn bwS5FOOstoIwk9EjQUHiCYB vW5ivQyFcEIICVodsoqQeRA ztGVMsq8K4XCHpGWZStAxww IkdSUUwgRhgYofucOH2ZWYp gyMASxwzBMFoAZ0MRXBsTJr vUWt3aaIzACJtPuJnAWLkA6 3vx0LPd4IlXT9RZZq1opJwr bftQpJrQTBrqZZLt6XdMBot HZGuWSGkjUOEa2QoCPGSPad gerUwTNLyL4YdcmGlOQhzYS Rxgr4piGzkGX9cZVYzh5Oat nqxOEihWN9qCDBqiUXqSSGc JzEcpElhjzOmtJVgqVX1wYQ ewSYweQPez8PneB8pRQBkJY W8NBHvVVO1ONZvYLWfiAphw GFuIGFuZCBvZiBhIHNvZnQg WR9sQWWltJLyvABeO22hs3w noYGgW9vpTWGonSRfuFqnd1 TdkGn6qTVoWUgpTJ0aZYXkQ YEfJKB4IP1QNlcihMojPsZy uGAfNnK5RXNtoSCcKJF0SN7 sbYpkXAQjCHr4KDehRSBxA1 YoD3PaRSfvOnAwDKrrIREfU SRiHAgbWUIcL2GJQYNzHyPs NSO9CDTvLIk0ITw9ME0SMcO tVGD4ZCX8Kwo4WUDoYXb5TE oyWH6ZVEVmKfThMOR1KChiV II8DAJ4AXujfQIcBPcwg5Mi ZnQjFXBkVFesetI3SCLcwmO xa0GsRVHuHNPvZ7kbImChHC MTBrilchFnOQsoCQGkt2X5I ALvUASLcBqjgMleAPJ4WZJm fHAELTFxOCTBaO3tf4fnyYK lSV9GQNOhtwOfMTnxhIymrN 2gdXMjO3inUdWoNhqixTorF mVzdERvYzEgDQpcbHRycGFy TNZqSaWqVQHfN8nmBaMaPSB aJoOjHXUeW8nnWTRkCX4TOQ YcLxVpSnNjQAf9WWIbaS6kV s5raNPofN8zk91yGZBffZ2j N8CbhRDlq92jUWHjMIInGQ6 fDMG6xOdjUCUrL9LeOKHdc3 F4LVNlUQGshOFkrqpsMW87Q MeuKI3hBTpdJP4lUYGzCFZ2 KX0yQR4rLW6rLUIjz05yeTE envXhOdBcVNGsTGAdj26lxI Q9YW3haZ6iUL36QAywgMSzj DTetBK7PQHniO8qn69aGHVz v8BkxVVzVo8IYZKndXRZZPH 8LD4rCGulRKKkX6ZgX9Cmrw A0NKJkkbFYHznkYylvxTfdi 2VjdCBcXHNnIFxcaWQgNTEw HEVdJMjsRuMRPcEgDoO7IfO aZnX9DrHfCYk1DBcqE7IECB YmBVKyTHo1QwykUkY8NVg3G IIAAy0cDWM0ViN9LHaoQaBw TVJ7HzeuXIa4GRCmETnphxJ sAIxuAfcxXHrnV26pkXAqUX crQgNdGTbziLlvAQCvXVB9Q B1UYHVlFbGkUc3cHIXpu2Fj rANzHQXmJ5c4ZJTYUNBpkgU tJI7iLIcaVnxhgPO8QKEnyq YTMhbpEFAqIY8VYVRsRNygO Af2fwMxLACeEkYzQZQqF50t i1UKc0CjFT6ZCRv6xoCvect lQvBzRKWhrUHWd5UtAZkrUF AgECHhxAAGy3BiBRTZEnxay bPeXGIeT9PvnkJzHIslAREe my7suWbeGX3tKFOze5Kgbzk pIBrkYT8hUGHvwOToDCTmHm ZgjOrtumLqsEZnpWF8lALof UFdrGGwq2KkgI7nNUHtJeA9 WRCwJGH1IQXxIQYncAtdgJF uIGFuZCBvZiBhIHNvZnQgYW 2gGZUetQFfhNZqQ78tc3twz VKgI6dxVIUeoXRobRuyy3Xb tUg8iRNzDUegEZ4vVOUlFJE uLCI7WO8BYapzkLvoMrGxgF ZiMnR6GJBbhCYrFRV4HV1dg MljREPrIHh6MEcqEXJoX3Op Y1UhAQehVdLyZTewCBUiJJX kWBoiEAZgQ4NOIZKoZzZpXB Q1KIUrIGl5ZWm8DA3CYsBpW FT9AUR8Zzp6CgFwLAq8IYyd LJ1SRCNwYxSdMQI1IbU5IWF 7AXK3GZrhtRYaEZzkr7RbPy CuBLRpRTzibiO7ZXSpyuEpv 1NdRAOoDLVzG9eiFiEfPOCG TrxbtwHbACsoVXMhs0F5NWQ gINPHuFywkLemDEC4SLGujP FKyXV9DVNYgP7ln6kmbQStZ Y9VBYJvhoReGRhslZmwrA6r gJEyO3pcQgPhJxwmpXuqUrQ zdERvYzEgDQpcbHRycGFyXH HmLgFhVSUgU9maSdReFF3YB DHjPbAfGuSsDAs4TFEbpB4m Jo9vqJUodH7we03dOYEubI4 gG6PsfKAmr32uKJKgOVOjRH 3qIYV6rCmrSORgZ7QoZISxl 4R5CWXbNTAojJQvzekqRW5k AEihXT4rUMygXV1hPNUhPXF 8NW0yTN8xVP7rMISox55qzP HrqyTiCsBvPQEhOTOsl50us PA8JU9jwR5kNE58HAqocMSy mMUuoYY1XCOjhE1kr73xFSL er2YtrYBuYwElmDZfGD0IGX YvbrRftQIngZWvQJ5BXHVxz mDHZprls2EwFNP6ZZ7pxqL0 mA1yNMYqpySbta3iHTRstMM QyNW8TPzmoaVeI2ofkvalXD G8HGMhWRH4G5qsRAOKieElJ RCWvMR1DUgjuxDoVC5JCWL4 OTb2LWWjdcAJTopqYBNjDPl HNUAjJFO8LKZwYNBiNxElBC mpGELDXJrvLUJnGHzrx0VcO FxlcGljWHNhMzAgDQpcZXBp H16dr1HPz1Tcu8wvbRbpz9U xlUIaEJ28HKOlyKSsWEM5HL 5kfVxwYXIgDQpccGFyZCANC rrtimRaMW3UiQ== [facility] Work Phone: Performing Lab y6wlvTImUKLwmDBmUfPu MDA zMYIsv1pdIHRtvUEfWtBmCt NcZnRuYmpcdWMxXGRlZmYwe 7tyi741xZYcb3zbNEHwNaS5 zOToKYOklIEbX785IOJkTHg ae8hdm2RvVCYgsTPfo5S7UK KKnskmaIw9xHcyN88ua6O6P fbvX8olATViUXKfE7DyLJ4n RSMxNwg3PYM5REZ4DLLmDGM nY7EzZJ9sBUIufMUaOWk5u2 mxlGokMYUwNUP7b0enYTooa jKdQB1iee8vzYn3g5pjzwPs JDFhCRRshCOVMDAoI4WubFr qQt2snTf5jGboPjdmSCP8Oj h9EJ8rop66ixs1jFvkTGNpi mwrOuL5RKmqOTBvmnpzVAv6 MBlcRIFfkRL8PEDltLFjX7B gRXatGX7elht6QMK8NPtvFY AkAxS6CQJtvCHuTZMfyEdkL Xzrv401JBC1EjMqAI0eO5Ie a1N4sN1zgZLmWDVaxVJmBmZ dZOWuuo5lsQPeYGffv1EmMQ K9lvE0iKKerIYvONUwWD90U dwdd8VfKivgz2YcR39umRC3 MSbpp9jwIC9zEgB5tsScHUu vw2skrD0mJyB8FQvpEA5gZF 2hETZrdZ1abvzpUZOxOqEun ohiHNTytBohieZsBf6tsKsl RXK8CCcvE1hqtF7zUeP8MOc zM9gypB7lQYx5JMnczGW6MM RmwE6nYW8pjrcnw8gwTVcbB SnkAKWyhvC7ofRlMKKoqAFl G6EhwJ4nVBEbMP8ncabuo9m rRRJ2CYunMKEpVVG4EaHaTL Mpq2Vcxsc8AaOkk5NdhWOeH MtuP92ea200RZYvftTbJ1kk bGFpblxwbGFpblxmMFxmczI 0XHFsXHBsYWluXGYxXGZzMj JcbGFuZzEwMzNcaGljaFxmM YbnCbWaIEIbWRxkF2otWfWx XwHuBsDOqPErdg7wrBvlSUv ofVUcaMHjhAB7wO4gYKZjko Fdgc0rNGHcgZBOeJI3EOspa sUhG5ppeivfZLM8HBDcEMW6 D9heKEDPyxEiITEvBGVwpLT sLSKZYCR6YPW8PGPcUXNMNH BkQEH6ROH2UEAuVUGsqVErN HBhclxwYXJkXHBsYWluXGYw NCMwDcZyiEwlaY8xFbEsQgG fYmvwKT8vQTSrL9nzfRErRU BhBULgT7gdNzOqyR2unZbmA VxjZjJcZnMyMlxsdHJjaCBM ENIpuhD3p6S2DNqciUVzyeg mMVxmczIyXGxhbmcxMDMzXG ikH6yrSlQnHNCsyBseRXwtn 9ZoXKInNCAfXpSiYDyxVRU0 k8J9KFdjnZExhxQWAyQNHS3 axGLatbjbAB2IQqhrKDZ4 [facility] Work Phone: [facility] Work Phone: UA DIP, URINE (POC)on 2023 BILIRUBIN UA (POCT) Negative Negative [facility] CLARITY UA (POCT) Clear [facility] COLOR UA (POCT) Yellow [facility] GLUCOSE UA (POCT) Negative Negative mg/dL [facility] Hemoglobin Ql (U) Trace-intact Abnormal Negative [facility] Interpretation and review of laboratory results Abnormal [facility] KETONE UA (POCT) Negative Negative mg/dL [facility] LEUKOCYTES UA (POCT) Trace Abnormal Negative [facility] NITRITE UA (POCT) Negative Negative [facility] PH UA (POCT) 6.0 4.5 - 8.0 [facility] Protein Ql (U) Negative Negative mg/dL [facility] SPECIFIC GRAVITY UA (POCT) 1.010 1.005 - 1.030 [facility] UROBILINOGEN UA (POCT) 0.2 Stephenie l E.U./dL [facility] Location:[facility], [address] [place], [address] [facility] POINT OF CARE [facility] US PROSTATE BIOPSY (POC) GUK I USE ONLYon 10-11-2023 [facility] PSA/PROSTSPECAG SCRNon 03-28 Prostate specific Ag [Mass/Vol] 8.30 ng/mL High <2.60 ng/mL [facility] CBC panel Auto (Bld)on 09-29 Erythrocyte distribution width (RBC) [Ratio] 12.5 % 11.5 - 15.0 % [facility] Hematocrit (Bld) [Volume fraction] 45.8 % 39.0 - 51.0 % [facility] Hemoglobin (Bld) [Mass/Vol] 15.6 g/dL 13.0 - 17.0 g/dL [facility] MCH (RBC) [Entitic mass] 33.2 pg 26.0 - 34.0 pg [facility] MCHC (RBC) [Mass/Vol] 34.1 g/dL 30.5 - 36.0 g/dL [facility] MCV (RBC) [Entitic vol] 97.4 fL 80.0 - 100.0 fL [facility] Platelet mean volume (Bld) [Entitic vol] 9.0 fL 9.0 - 12.7 fL [facility] Platelets (Bld) [#/Vol] 424 10*3/uL High 150 - 400 k/uL [facility] RBC (Bld) [#/Vol] 4.70 10*6/uL 4.20 - 6.0 0 m/uL [facility] WBC (Bld) [#/Vol] 8.92 10*3/uL 3.70 - 11. 00 k/uL [facility] Comprehensive metabolic 2000 panelon 09-29-2022 Albumin [Mass/Vol] 4.6 g/dL 3.9 - 4.9 g/dL [facility] ALP [Catalytic activity/Vol] 94 U/L 38 - 113 U/L [facility] ALT With P-5'-P [Catalytic activity/Vol] 16 U/L 10 - 54 U/L [facility] Anion gap [Moles/Vol] 12 mmol/L 9 - 18 mmol/L [facility] AST With P-5'-P [Catalytic activity/Vol] 16 U/L 14 - 40 U/L [facility] Bilirubin [Mass/Vol] 0.6 mg/dL 0.2 - 1 .3 mg/dL [facility] Calcium [Mass/Vol] 9.5 mg/dL 8.5 - 10. 2 mg/dL [facility] Chloride [Moles/Vol] 93 mmol/L Low 97 - 10 5 mmol/L [facility] CO2 [Moles/Vol] 26 mmol/L 22 - 30 mmol/L [facility] Creatinine [Mass/Vol] 0.67 mg/dL Low 0.73 - 1.22 mg/dL [facility] Estimated Glomerular Filtration Rate 97 mL/min/1.73m >=60 mL/min/1.73m [facility] Glucose [Mass/Vol] 125 mg/dL High 74 - 99 mg/dL [facility] Potassium [Moles/Vol] 3.7 mmol/L 3.7 - 5.1 mmol/L [facility] Protein [Mass/Vol] 7.6 g/dL 6.3 - 8.0 g/dL [facility] Sodium [Moles/Vol] 131 mmol/L Low 136 - 144 mmol/L [facility] Urea nitrogen [Mass/Vol] 6 mg/dL Low 9 - 24 mg/dL [facility] Lipid 1996 panelon 3 Cholesterol [Mass/Vol] 155 mg/dL <200 mg/dL [facility] Cholesterol in HDL [Mass/Vol] 70 mg/dL >39 mg/dL [facility] Cholesterol in LDL [Mass/Vol] 69 mg/dL <100 mg/dL [facility] Cholesterol in LDL/Cholesterol in HDL [Mass ratio] 0.99 {ratio} <2.54 [facility] Cholesterol in VLDL [Mass/Vol] 16 mg/dL <30 mg/dL [facility] Cholesterol non HDL [Mass/Vol] 85 mg/dL <130 mg/dL [facility] Cholesterol.total/Chol esterol in HDL [Mass ratio] 2.21 {ratio} <5.10 [facility] Fasting Time 12 hrs [facility] Triglyceride [Mass/Vol] 79 mg/dL <150 mg/dL [facility] Comprehensive Panelon 2019 Urea nitrogen [Mass/Vol] 12 mg/dL Normal 7-18 [facility] Comment on above: Performed By: #### P 14 #### [facility] [address] [place], [place] [address] ALP [Catalytic activity/Vol] 83 U/L Normal 45-117 [facility] Comment on above: Performed By: #### P 14 #### [facility] [address] [place], [place] [address] Protein [Mass/Vol] 7.7 g/dL Normal 6.4-8.2 [facility] Comment on above: Performed By: #### P 14 #### [facility] [address] [place], [place] [address] ALT [Catalytic activity/Vol] 33 U/L Normal 12-78 [facility] Comment on above: Performed By: #### P 14 #### [facility] [address] [place], [place] [address] Bilirubin [Mass/Vol] 0.7 mg/dL Normal 0.2-1.0 [facility] Comment on above: Result Comment: Use of this assay is not recommended for patients undergoing treatment with eltrombopag due to the potential for falsely elevated results. Performed By: #### P 14 #### [facility] [address] [place] [address] AST [Catalytic activity/Vol] 19 U/L Normal 15-37 [facility] Comment on above: Performed By: #### P 14 #### [facility] [address] [place], [place] [address] Creatinine [Mass/Vol] 0.66 mg/dL Low 0.67-1.17 [facility] Comment on above: Result Comment: Use of this assay is not recommended for patients undergoing treatment with phenindione, due to the potential for falsely depressed results. Performed By: #### P 14 #### [facility] [address] [place], [place] [address] Glucose [Mass/Vol] 105 mg/dL High 70-99 [facility] Comment on above: Performed By: #### P 14 #### [facility] [address] [place], [place] [address] Albumin [Mass/Vol] 3.9 g/dL Normal 3.4-5.0 [facility] Comment on above: Performed By: #### P 14 #### [facility] [address] [place], [place] [address] Anion gap [Moles/Vol] 12 mmol/L Normal 8-16 [facility] Comment on above: Performed By: #### P 14 #### [facility] [address] [place], [place] [address] CO2 [Moles/Vol] 26 mmol/L Normal 21-32 [facility] Comment on above: Performed By: #### P 14 #### [facility] [address] [place], [place] [address] Calcium [Mass/Vol] 9.4 mg/dL Normal 8.5-10.1 [facility] Comment on above: Performed By: #### P 14 #### [facility] [address] [place], [place] [address] Chloride [Moles/Vol] 101 mmol/L Normal 98-107 [facility] Comment on above: Performed By: #### P 14 #### [facility] [address] [place], [place] [address] Potassium [Moles/Vol] 3.1 mmol/L Low 3.5-5.1 [facility] Comment on above: Performed By: #### P 14 #### [facility] [address] [place], [place] [address] Sodium [Moles/Vol] 136 mmol/L Normal 136-145 [facility] Comment on above: Performed By: #### P 14 #### [facility] [address] [place] [id number] MDRD GFRon 08-15-2019 GFR/1.73 sq M predicted among non-blacks MDRD (S/P/Bld) [Vol rate/Area] mL/min/{1.73_m2} Normal >60mL/min/1.[address] [facility] Comment on above: Result Comment: If t he patient is , multiply the result by 1.210. Performed By: #### G FR #### [facility] [address] [place] [address] Hemoglobin A1Con 08-14-2019 HbA1c (Bld) [Mass fraction] 114 mg/dl Normal [facility] Comment on above: Performed By: #### L A1C #### [facility] [address] [place], [place] [address] HbA1c (Bld) [Mass fraction] 5.6 % Normal 4.5-6.2 [facility] Comment on above: Performed By: #### L A1C #### [place] [address] Hemogramon 08-14-2019 Erythrocyte distribution width (RBC) [Ratio] 13.0 % Normal 11.5-15.9 [facility] Comment on above: Performed By: #### L CBC #### [facility] [address] [place] [address] Hematocrit (Bld) [Volume fraction] 46.8 % Normal 42.0-52.0 [facility] Comment on above: Performed By: #### L CBC #### [facility] [address] [place] [address] Hemoglobin (Bld) [Mass/Vol] 16.1 g/dL Normal 14.0-18.0 [facility] Comment on above: Performed By: #### L CBC #### [place] [address] MCH (RBC) [Entitic mass] 32.9 pg High 27.0-31.0 [facility] Comment on above: Performed By: #### L CBC #### [place] [address] MCHC (RBC) [Mass/Vol] 34.4 % Normal 32.0-36.0 [facility] Comment on above: Performed By: #### L CBC #### [place] [address] MCV (RBC) [Entitic vol] 95.5 fL High 80.0-94.0 [facility] Comment on above: Performed By: #### L CBC #### [place] [address] Platelet mean volume (Bld) [Entitic vol] 9.5 fL Normal 7.1-10.5 [facility] Comment on above: Performed By: #### L CBC #### [place] [address] Platelets (Bld) [#/Vol] 385 thou/cmm Normal 150-400 [facility] Comment on above: Performed By: #### L CBC #### [place] [address] RBC (Bld) [#/Vol] 4.90 mil/cmm Normal 4.60-6.20 [facility] Comment on above: Performed By: #### L CBC #### [facility] [address] [place], [place] [address] WBC (Bld) [#/Vol] 8.7 thou/cmm Normal 4.8-10.5 [facility] Comment on above: Performed By: #### L CBC #### [facility] [address] [place] [address] Lipid Profileon 08-14-2019 Cholesterol [Mass/Vol] 162 mg/dL Normal 0-199 [facility] Comment on above: Performed By: #### L LIPD #### [facility] [address] [place] [address] Cholesterol in HDL [Mass/Vol] 71 mg/dL Normal >40 [facility] Comment on above: Performed By: #### L LIPD #### [place] [address] Cholesterol in LDL [Mass/Vol] 70 mg/dL Normal 0-150 [facility] Comment on above: Performed By: #### L LIPD #### [facility] [address] [place], [place] [address] Cholesterol.total/Chol esterol in HDL [Mass ratio] 2.3 {ratio} Normal 2.1-7.3 [facility] Comment on above: Performed By: #### L LIPD #### [facility] [address] [place], [place] [address] Triglyceride Blood 104 mg/dL Normal 0-149 [facility] Comment on above: Performed By: #### L LIPD #### [place] [address] Risk Factor See Below Normal [facility] Comment on above: Result Comment: Card [...] >11.0 Performed By: #### L LIPD #### [address] [address] Vital Signs Date Time Vital Sign Value Performing Clinician Faci lity 03-25-2025 15:12-0400 Diastolic blood pressure 76 mm[Hg] Dr. Renetta Cline DO Work Phone: [facility] 03-25-2025 15:12-0400 Systolic blood pressure 152 mm[Hg] Dr. Renetta Cline DO Work Phone: [facility] 03-25-2025 15:01-0400 Body height 175.[address] Renetta Cline DO Work Phone: [facility] 03-25-2025 15:01-0400 Body mass index (BMI) [Ratio] 30.8 kg/m2 Dr. eRnetta Cline DO Work Phone: [facility] 03-25-2025 15:01-0400 Body weight 94.[address] Renetta Cline DO Work Phone: [facility] 03-25-2025 15:01-0400 Heart rate 100 /min Dr. Renetta Cline DO Work Phone: [facility] 03-25-2025 15:01-0400 Respiratory rate 18 /min Dr. Renetta Cline DO Work Phone: [facility] 03-25-2025 15:01-0400 SaO2% (BldA) [Mass fraction] 93 % Dr. Renetta Cline DO Work Phone: [facility] 03-19-2025 15:05-0400 Body temperature 98.2 [degF] Dr. Renetta Cline DO Work Phone: [facility] 03-19-2025 15:05-0400 Body weight 94.[address] Renetta Cline DO Work Phone: [facility] 03-19-2025 15:05-0400 Diastolic blood pressure 90 mm[Hg] Dr. Renetta Cline DO Work Phone: [facility] 03-19-2025 15:05-0400 Heart rate 92 /min Dr. Renetta Cline DO Work Phone: [facility] 03-19-2025 15:05-0400 Respiratory rate 16 /min Dr. Renetta Cline DO Work Phone: [facility] 03-19-2025 15:05-0400 SaO2% (BldA) [Mass fraction] 96 % Dr. Renetta Cline DO Work Phone: [facility] 03-19-2025 15:05-0400 Systolic blood pressure 161 mm[Hg] Dr. Renetta Cline DO Work Phone: [facility] 02-07-2025 13:06-0400 Diastolic blood pressure 83 mm[Hg] Anthony Egan MD Work Phone: [facility] 02-07-2025 13:06-0400 Systolic blood pressure 137 mm[Hg] Anthony Egna MD Work Phone: [facility] 02-07-2025 12:58-0400 Heart rate 116 /min Anthony Egan MD Work Phone: [facility] 02-07-2025 12:58-0400 SaO2% (BldA) [Mass fraction] 95 % Anthony Egan MD Work Phone: [facility] 01-28-2025 13:05-0400 Body height 174 cm Juan Miguel Rodriguez MD Work Phone: [facility] 01-28-2025 13:05-0400 Body mass index (BMI) [Ratio] 31.51 kg/m2 Juan Miguel Rodriguez MD Work Phone: [facility] 01-28-2025 13:05-0400 Body weight 95.4 kg Juan Miguel Rodriguez MD Work Phone: [facility] 01-28-2025 13:05-0400 Diastolic blood pressure 72 mm[Hg] Juan Miguel Rodriguez MD Work Phone: [facility] 01-28-2025 13:05-0400 Heart rate 108 /min Juan Miguel Rodriguez MD Work Phone: [facility] 01-28-2025 13:05-0400 SaO2% (BldA) [Mass fraction] 95 % Juan Miguel Rodriguez MD Work Phone: [facility] 01-28-2025 13:05-0400 Systolic blood pressure 138 mm[Hg] Juan Miguel Rodriguez MD Work Phone: [facility] 12-19-2024 12:36-0400 Diastolic blood pressure 83 mm[Hg] Anthony Egan MD Work Phone: [facility] 12-19-2024 12:36-0400 Systolic blood pressure 192 mm[Hg] Anthony Egan MD Work Phone: [facility] 12-19-2024 12:33-0400 Heart rate 102 /min Anthony Egan MD Work Phone: [facility] 12-19-2024 12:33-0400 SaO2% (BldA) [Mass fraction] 96 % Anthony Egan MD Work Phone: [facility] 11-01-2024 12:27-0400 Diastolic blood pressure 81 mm[Hg] Anthony Egan MD Work Phone: [facility] 11-01-2024 12:27-0400 Systolic blood pressure 129 mm[Hg] Anthony Egan MD Work Phone: [facility] 11-01-2024 12:24-0400 Heart rate 117 /min Anthony Egan MD Work Phone: [facility] 11-01-2024 12:24-0400 SaO2% (BldA) [Mass fraction] 96 % Anthony Egan MD Work Phone: [facility] 2024 13:26-0400 Diastolic blood pressure 60 mm[Hg] Renetta Sheets DO Work Phone: [facility] 2024 13:26-0400 Systolic blood pressure 122 mm[Hg] Renetta Sheets DO Work Phone: [facility] 2024 12:58-0400 Body height 174 cm Renetta Sheets DO Work Phone: [facility] 2024 12:58-0400 Body mass index (BMI) [Ratio] 31.62 kg/m2 Renetta Sheets DO Work Phone: [facility] 2024 12:58-0400 Body temperature 98.91 [degF] Renetta Sheets DO Work Phone: [facility] 2024 12:58-0400 Body weight 95.71 kg Renetta Sheets DO Work Phone: [facility] 2024 12:58-0400 Heart rate 108 /min Renetta Sheets DO Work Phone: [facility] 2024 12:58-0400 Respiratory rate 16 /min Renetta Sheets DO Work Phone: [facility] 2024 12:58-0400 SaO2% (BldA) [Mass fraction] 95 % Renetta Sheets DO Work Phone: [facility] 03-19-2024 13:47-0400 Diastolic blood pressure 70 mm[Hg] Renetta Sheets DO Work Phone: [facility] 03-19-2024 13:47-0400 Systolic blood pressure 110 mm[Hg] Renetta Sheets DO Work Phone: [facility] 03-19-2024 13:15-0400 Body height 175.3 cm Renetta Sheets DO Work Phone: [facility] 03-19-2024 13:150400 Body mass index (BMI) [Ratio] 32.33 kg/m2 Renetta Sheets DO Work Phone: [facility] 03-19-2024 13:150400 Body temperature 98.01 [degF] Renetta Sheets DO Work Phone: [facility] 03-19-2024 13:150400 Body weight 99.34 kg Renetta Sheets DO Work Phone: [facility] 03-19-2024 13:15040 Heart rate 116 /min Renetta Sheets DO Work Phone: [facility] 03-19-2024 13:15-0400 SaO2% (BldA) [Mass fraction] 93 % Renetta Sheets DO Work Phone: [facility] 10-11-2023 10:29040 Body height 175.3 cm Scotty Mejia MD Work Phone: [facility] 10-11-2023 10:29-0400 Body mass index (BMI) [Ratio] 31.6 kg/m2 Scotty Mejia MD Work Phone: [facility] 10-11-2023 10:290400 Body weight 97.07 kg Scotty Mejia MD Work Phone: [facility] 10-11-2023 10:29-0400 Diastolic blood pressure 73 mm[Hg] Scotty Mejia MD Work Phone: [facility] 10-11-2023 10:29-0400 Heart rate 82 /min Scotty Mejia MD Work Phone: [facility] 10-11-2023 10:29-0400 Respiratory rate 14 /min Scotty Mejia MD Work Phone: [facility] 10-11-2023 10:29-0400 Systolic blood pressure 186 mm[Hg] Scotty Mejia MD Work Phone: [facility] 05-10-2023 13:01-0500 Body height 175.3 cm Scotty Mejia MD Work Phone: [facility] 05-10-2023 13:01-0500 Body weight 94.8 kg Scotty Mejia MD Work Phone: [facility] 03-28-2023 12:54-0400 Body height 175.3 cm Renetta Sheets DO Work Phone: [facility] 03-28-2023 12:54-0400 Body temperature 98.1 [degF] Renetta Sheets DO Work Phone: [facility] 03-28-2023 12:54-0400 Body weight 94.8 kg Renetta Sheets DO Work Phone: [facility] 03-28-2023 12:54-0400 Diastolic blood pressure 70 mm[Hg] Renetta Sheets DO Work Phone: [facility] 03-28-2023 12:54-0400 Heart rate 86 /min Renetta Sheets DO Work Phone: [facility] 03-28-2023 12:54-0400 Respiratory rate 16 /min Renetta Sheets DO Work Phone: [facility] 03-28-2023 12:54-0400 SaO2% (BldA) [Mass fraction] 94 % Renetta Sheets DO Work Phone: [facility] 03-28-2023 12:54-0400 Systolic blood pressure 122 mm[Hg] Renetta Sheets DO Work Phone: [facility] 11-16-2022 10:50-0400 Diastolic blood pressure 86 mm[Hg] Sreedhar Rojas MD Work Phone: [facility] 11-16-2022 10:50-0400 Heart rate 116 /min Sreedhar Rojas MD Work Phone: [facility] 11-16-2022 10:50-0400 Systolic blood pressure 180 mm[Hg] Sreedhar Rojas MD Work Phone: [facility] 11-16-2022 10:47-0400 Body temperature 99.1 [degF] Sreedhar Rojas MD Work Phone: [facility] 11-16-2022 10:47-0400 Body weight 95.39 kg Sreedhar Rojas MD Work Phone: [facility] 11-16-2022 10:47-0400 SaO2% (BldA) [Mass fraction] 96 % Sreedhar Rojas MD Work Phone: [facility] 09-26-2022 13:38-0400 Diastolic blood pressure 68 mm[Hg] Renetta Sheets DO Work Phone: [facility] 09-26-2022 13:38-0400 Systolic blood pressure 126 mm[Hg] Renetta Sheets DO Work Phone: [facility] 09-26-2022 13:35-0400 Body height 175.3 cm Renetta Sheets DO Work Phone: [facility] 09-26-2022 13:35-0400 Body temperature 98.2 [degF] Renetta Sheets DO Work Phone: [facility] 09-26-2022 13:35-0400 Body weight 95.71 kg Renetta Sheets DO Work Phone: [facility] 09-26-2022 13:35-0400 Heart rate 100 /min Renetta Sheets DO Work Phone: [facility] 09-26-2022 13:35-0400 Respiratory rate 16 /min Renetta Sheets DO Work Phone: [facility] 09-26-2022 13:35-0400 SaO2% (BldA) [Mass fraction] 96 % Renetta Sheets DO Work Phone: [facility] 10-01-2021 11:35-0400 Diastolic blood pressure 68 mm[Hg] Renetta Sheets DO Work Phone: [facility] 10-01-2021 11:35-0400 Systolic blood pressure 120 mm[Hg] Renetta Sheets DO Work Phone: [facility] 10-01-2021 11:34-0400 Body height 175.3 cm Renetta Sheets DO Work Phone: [facility] 10-01-2021 11:34-0400 Body temperature 98.71 [degF] Renetta Sheets DO Work Phone: [facility] 10-01-2021 11:34-0400 Body weight 94.62 kg Renetta Sheets DO Work Phone: [facility] 10-01-2021 11:34-0400 Heart rate 85 /min Renetta Sheets DO Work Phone: [facility] 10-01-2021 11:34-0400 Respiratory rate 16 /min Renetta Sheets DO Work Phone: [facility] 10-01-2021 11:34-0400 SaO2% (BldA) [Mass fraction] 95 % Renetta Sheets DO Work Phone: [facility] Encounters Encounter Date Encounter Type Care Provider Facility Start: 04-22-2025 Encounter for other preprocedural examination Rojas Marion [facility] Start: 04-21-2025 ambulatory Rojas Marion Facility:[facility] Start: 04-21-2025 Evaluation and manag ement of inpatient Renetta Sheets Facility:[facility] Start: 04-11-2025 End: 04-11-2025 ambulatory RENETTA C MARLYN Facility:[facility] Start: 03-25-2025 End: 03-25-[address] Kim Corral MD -[facility] Work Phone: Start: 03-25-2025 End: 03-25-[address] Kim Corral MD [facility] Start: 03-25-2025 End: 03-25-[address] Renetta Cline DO Work Phone: -[facility] Start: 03-20-2025 Encounter for other preprocedural examination Rojas Marion [facility] Start: 03-19-[address] Renetta Cline DO Work Phone: [facility] Start: 03-19-2025 End: 03-19-[address] Rojas Marion MD -[facility] Work Phone: Start: 03-19-2025 End: 03-19-[address] Renetta Cline DO Work Phone: -[facility] Start: 02-14-2025 End: 02-14-2025 Telephone encounter Anthony Egan MD Work Phone: Vascular Surgery Comment on above: Opened In Error Start: 02-07-2025 End: 02-07-2025 Patient encounter procedure Anthony Egan MD Work Phone: Vascular Surgery Comment on above: Carotid stenosis, as ymptomatic, bilateral (Primary Dx); Stenosis of left subclavian artery; Peripheral artery disease; Mixed hyperlipidemia Start: 02-07-2025 End: 02-07-2025 ambulatory ANTHONY EGAN Facility:[facility] Start: 01-31-2025 End: 02-03-2025 Follow-up encounter Juan Miguel Rodriguez MD Work Phone: [facility] Adult Start: 01-31-2025 ambulatory ANTHONY EGAN Facility: [facility] Start: 01-31-2025 End: 01-31-2025 Subsequent hospital visit by physician [facility] Work Phone: Cardiology Lab Comment on above: Right carotid bruit [R09.89] Start: 01-30-2025 ambulatory JUAN MIGUEL RODRIGUEZ Faci lity:[facility] Start: 01-30-2025 End: 01-30-2025 Subsequent hospital visit by physician [facility] Work Phone: Cardiology Lab Comment on above: Encounter for screen ing for cardiovascular disorders [Z13.6] Start: 01-28-2025 End: 01-28-2025 Patient encounter procedure Juan Miguel Rodriguez MD Work Phone: Cardiology Comment on above: Encounter for screen ing for cardiovascular disorders (Primary Dx); Dyspnea on exertion; Silent myocardial ischemia; Stenosis of left subclavian artery; Essential hypertension; Mixed hyperlipidemia; LVH (left ventricular hypertrophy); Peripheral artery disease; Smoker; Alcohol dependence, daily use (HCC); Obesity, Class I, BMI 30-34.9; Sinus tachycardia Start: 01-28-2025 End: 01-28-2025 ambulatory JUAN MIGUEL RODRIGUEZ Facility:[facility] Start: 12-24-2024 End: 12-24-2024 ambulatory ANTHONY ESTRADAANNA Facility:[facility] Start: 12-24-2024 End: 12-24-2024 Subsequent hospital visit by physician [facility] Work Phone: [facility] Comment on above: 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] Start: 12-19-2024 End: 12-19-2024 Patient encounter procedure Anthony Egan MD Work Phone: Vascular Surgery Comment on above: Dyspnea on exertion (Primary Dx); Hemispheric carotid artery syndrome; Right carotid bruit; Tobacco use; Encounter for screening for cardiovascular disorders; Carotid stenosis, asymptomatic, bilateral Start: 12-19-2024 End: 12-19-2024 ambulatory ANTHONY EGAN Facility:[facility] Start: 12-10-2024 End: 12-10-2024 Telephone encounter Renetta C Sheets DO Work Phone: Vascular Surgery Comment on above: Patient Update (Elev ated HR and BP ) Start: 12-10-2024 End: 12-10-2024 ambulatory ANTHONY EGAN Facility:[facility] Start: 11-18-2024 End: 11-19-2024 Refill Renetta C Sheets DO Work Phone: [facility] Comment on above: Refill Request Start: 11-01-2024 End: 11-01-2024 Patient encounter procedure Anthony Egan MD Work Phone: Vascular Surgery Comment on above: Right carotid bruit (Primary Dx); Peripheral artery disease; Primary hypertension; Mixed hyperlipidemia; Nicotine dependence, cigarettes, uncomplicated; Stenosis of left subclavian artery Start: 11-01-2024 End: 11-01-2024 ambulatory ANTHONY JULISA Facility:[facility] Start: 10-11-2024 End: 10-11-2024 Refill Renetta C Sheets DO Work Phone: [facility] Comment on above: Refill Request Start: 2024 End: 2024 ambulatory RENETTA C SHEETS Facility:[facility] Start: 2024 End: 2024 Patient encounter procedure Renetta C Sheets DO Work Phone: [facility] Comment on above: Medicare annual well ness visit, subsequent (Primary Dx); Peripheral artery disease; Essential hypertension; Mixed hyperlipidemia; Smoker; Obesity, Class I, BMI 30-34.9 Start: 09-10-2024 End: 09-10-2024 Refill Renetta C Sheets DO Work Phone: [facility] Comment on above: Refill Request Start: 07-30-2024 End: 07-30-2024 Refill Renetta C Sheets DO Work Phone: [facility] Comment on above: Refill Request Start: 04-25-2024 End: 04-25-2024 Refill Renetta C Sheets DO Work Phone: [facility] Comment on above: Refill Request Start: 03-19-2024 End: 03-19-2024 Patient encounter procedure Renetta C Sheets DO Work Phone: [facility] Comment on above: Essential hypertensi on (Primary Dx); Mixed hyperlipidemia; Smoker; Obesity, Class I, BMI 30-34.9 Start: 02-19-2024 End: 02-19-2024 Telephone encounter Renetta C Sheets DO Work Phone: [facility] Comment on above: Results Start: 01-21-2024 End: 01-30-2024 Refill Renetta C Sheets DO Work Phone: [facility] Comment on above: Refill Request Start: 10-31-2023 Refill Ina 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 brian 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 Work Phone: [facility] Comment on above: Refill Request Start: 10-27-2023 [...] Renetta C She ets DO Work Phone: [facility] Comment on above: Refill Request Start: 05-10-2023 End: 05-10-2023 Patient encounter procedure Scotty Mejia MD Work Phone: Urology Comment on above: Elevated PSA (Primar y Dx) Start: 04-14-2023 Refill Renetta C She ets DO Work Phone: [facility] Comment on above: Refill Request; Refi ll Request Start: 03-28-2023 Telephone encounter Renetta C Sheets DO Work Phone: [facility] Comment on above: Results Start: 03-28-2023 End: 03-28-2023 Patient encounter procedure Renetta C Sheets DO Work Phone: [facility] Comment on above: Essential hypertensi on (Primary Dx); Mixed hyperlipidemia; Thrombocytosis; Peripheral artery disease (HCC); Amyloidosis, unspecified type (HCC); History of elevated prostate specific antigen (PSA); Screening for prostate cancer; Alcohol dependence, daily use (HCC); Smoker; Obesity, Class I, BMI 30-34.9 Start: 02-09-2023 ambulatory [facility] Comment on above: Population Health Na vigation Outreach (ACO Member Needs PCP Appt for HTN FU) Start: 02-01-2023 ambulatory [facility] Comment on above: Population Health Na vigation Outreach (ACO Attributed Member Needs HTN FU Appt) Start: 12-23-2022 Refill Renetta C She ets DO Work Phone: [facility] Comment on above: Refill Request Start: 11-16-2022 End: 11-16-2022 ambulatory Sreedhar Rojas MD Work Phone: Hematology/Oncology Comment on above: Thrombocytosis (Prim tommy Dx); Essential (hemorrhagic) thrombocythemia (HCC) Start: 11-16-2022 End: 11-16-2022 Patient encounter procedure Sreedhar Rojas MD Work Phone: [facility] Start: 10-17-2022 Refill Renetta C She ets DO Work Phone: [facility] Comment on above: Refill Request Start: 09-30-2022 Refill Renetta C She ets DO Work Phone: [facility] Comment on above: Refill Request Start: 09-30-2022 Telephone encounter Renetta C Sheets DO Work Phone: [facility] Comment on above: Results Start: 09-26-2022 End: 09-26-2022 Patient encounter procedure Renetta C Sheets DO Work Phone: [facility] Comment on above: Essential hypertensi on (Primary Dx); Amyloidosis, unspecified type (HCC); Other cardiomyopathy (HCC); Peripheral artery disease (HCC) Start: 04-01-2022 Refill Renetta C She ets DO Work Phone: [facility] Comment on above: Refill Request Start: 12-02-2021 Telephone encounter Renetta C Sheets DO Work Phone: [facility] Comment on above: Results Start: 10-01-2021 End: 10-01-2021 Patient encounter procedure Renetta Cline DO Work Phone: [facility] Comment on above: Essential hypertensi on (Primary [...] Activity Detail Author Start: 02-24-2028 Colonoscopy COLONOSCOPY [facility] Start: 02-24-2028 COLORECTAL CANCER SCREENING COLORECTAL CANCER SCREENING [facility] Start: 02-24-2028 Screening for malignant neoplasm of colon [facility] Start: 11-01-2027 Urine microalbumin profile [facility] Start: 09-30-2027 Lipid 1996 panel - Serum or Plasma Lipid Screening [facility] Start: 09-30-2027 Lipid panel Lipid Screening [facility] Start: 09-30-2027 LIPID SCREEN LIPID SCREEN [facility] Start: 02-16-2027 Diabetes Screening Diabetes Screening [facility] Start: 11-12-2026 LIPID SCREEN LIPID SCREEN [facility] Start: 11-01-2025 End: 11-01-2025 US Carotid arteries - bilateral US CAROTID ARTERIES [facility] Vascular Lab Routine Right carotid bruit Expected: 11/01/2025, Expires: 11/01/2025 [facility] Work Phone: Comment on above: Expected: 11/01/2025, Expires: Start: 09-29-2025 DIABETES SCREEN DIABETES SCREEN [facility] Start: 09-29-2025 Diabetes Screening Diabetes Screening [facility] Start: 2025 Annual PCP Team Chronic Disease Visit Annual PCP Team Chronic Disease Visit [facility] Start: 2025 Anxiety Screening Anxiety Screening [facility] Comment on above: Postponed from 09/16/1965 (Postponed To Appropriate Date) Start: 2025 BP Controlled (<130/80) BP Controlled (<130/80) [facility] Start: 2025 Depression Screening Depression Screening [facility] Comment on above: Postponed from 09/16/1965 (Postponed To Appropriate Date) Start: 2025 Medicare Annual Wellness Visit Medicare Annual Wellness Visit [facility] Start: 2025 RSV Vaccine (1 - 1-dose 75+ series) RSV Vaccine (1 - 1-dose 75+ series) [facility] Comment on above: Postponed from 09/16/2022 (Declined at t his time) Start: 2025 Shingrix Vaccine (1 of 2) Shingrix Vaccine (1 of 2) [facility] Comment on above: Postponed from 09/16/1997 (Declined at t his time) Start: 09-07-2025 LIPID SCREEN LIPID SCREEN [facility] Start: 03-20-2025 End: 03-20-2025 Patient encounter procedure 03/20/2025 1:20 PM EDT Office Visit [facility] [address] [place] [address] Renetta Cline DO [address] [place] [address] 6 MTH F/U HTN [facility] Comment on above: 6 MTH F/U HTN Start: 03-19-2025 Annual PCP Team Chronic Disease Visit Annual PCP Team Chronic Disease Visit [facility] Start: 03-19-2025 BP Controlled (<130/80) BP Controlled (<130/80) [facility] Start: 03-19-2025 Covid-19 Vaccine ( season) Covid-19 Vaccine () [facility] Comment on above: Postponed from 02/11/2024 (Declined at t his time) Start: 03-19-2025 Pneumococcal Vaccine: 50+ (1 of 2 - PCV) Pneumococcal Vaccine: 50+ (1 of 2 - PCV) [facility] Comment on above: Postponed from 09/16/1966 (Declined at t his time) Start: 03-19-2025 Pneumococcal Vaccine: 65+ (1 of 2 - PCV) Pneumococcal Vaccine: 65+ (1 of 2 - PCV) [facility] Comment on above: Postponed from 09/16/1953 (Declined at t his time) Start: 02-10-2025 Influenza vaccination [facility] Start: 02-07-2025 End: 02-07-2025 Patient encounter procedure 02/07/2025 1:00 PM EDT Office Visit Vascular Surgery [address] [address] Anthony Egan MD [address] [place] [address] testing follow up Vascular Surgery Comment on above: testing follow up Start: 01-31-2025 End: 01-31-2025 Patient encounter procedure 01/31/2025 12:00 PM EDT Appointment Cardiology Lab [address] [place] [address] Dx: Right carotid bruit [R09.89]; Dyspnea on exertion [R06.09] [facility]iology Lab Comment on above: Dx: Right carotid bruit [R09.89]; Dyspne a on exertion [R06.09] Start: 01-30-2025 End: 01-30-2025 Patient encounter procedure [facility] Comment on above: stress test.add per Анна stress test Start: 01-28-2025 End: 01-28-2025 Patient encounter procedure 01/28/2025 1:30 PM EDT Office Visit Cardiology [address] [place] [id number] [place] [address] [place] [address] Dx: Dyspnea on exertion [R06.09] Cardiology Comment on above: Dx: Dyspnea on exertion [R06.09] Start: 12-19-2024 End: 12-19-2024 Patient encounter procedure 12/19/2024 12:30 PM EDT Office Visit Vascular Surgery [address] [place] [id number] Anthony Egan MD [address] [place] [address] FOLLOW UP WTH PVR AND CAROTID TESTING Vascular Surgery Comment on above: FOLLOW UP WTH PVR AND CAROTID TESTING Start: 12-10-2024 End: 12-10-2024 Patient encounter procedure Vascular Surgery Comment on above: FOLLOW UP WT PVR AND CAROTID TESTING Start: 12-09-2024 Influenza vaccination Influenza Vaccine (#1) [facility] Comment on above: Postponed from 02/11/2024 (Declined at t his time) Start: 11-12-2024 DIABETES SCREEN DIABETES SCREEN [facility] Start: 11-01-2024 End: 11-01-2024 Patient encounter procedure 11/01/2024 12:30 PM EDT Office Visit Vascular Surgery [address] [place] [id number] Anthony Egan MD [address] [place] [address] Peripheral artery disease Vascular Surgery Comment on above: Peripheral artery disease Start: 2024 End: 2024 Patient encounter procedure 2024 1:00 PM EDT Office Visit [facility] [address] [place] [address] Renetta Cline DO [address], [place] [id number] Medicare Wellness [facility] Comment on above: Medicare Wellness Start: 06-12-2024 Advance Directive Discussion Advance Directive Discussion [facility] Start: 03-28-2024 Annual PCP Team Chronic Disease Visit Annual PCP Team Chronic Disease Visit [facility] Start: 03-28-2024 BP Controlled (<130/80) BP Controlled (<130/80) [facility] Start: 03-28-2024 RSV Vaccine (1 - 1-dose 60+ series) RSV Vaccine (1 - 1-dose 60+ series) [facility] Comment on above: Postponed from 2007 (Declined at t his time) Start: 03-28-2024 Shingrix Vaccine (1 of 2) Shingrix Vaccine (1 of 2) [facility] Comment on above: Postponed from 09/16/1997 (Declined at t his time) Start: 03-19-2024 End: 03-19-2024 Patient encounter procedure 03/19/2024 1:20 PM EDT Office Visit [facility] [address] [place] [address] Renetta Cline DO [address], [place] [id number] Follow up [facility] Comment on above: Follow up Start: 02-11-2024 Covid-19 Vaccine () Covid-19 Vaccine ( season) [facility] Start: 02-11-2024 Influenza vaccination [facility] Start: 01-23-2024 End: 04-23-2024 CBC panel - Blood by Automated count COMPLETE BLOOD COUNT Lab Routine Mixed hyperlipidemia Expected: 01/23/2024, Expires: 04/23/2024 [facility] Work Phone: Comment on above: Expected: 01/23/2024, Expires: Start: 01-23-2024 End: 04-23-2024 Comprehensive metabolic 2000 panel - Serum or Plasma COMPREHENSIVE METABOLIC PANEL Lab Routine Mixed hyperlipidemia Expected: 01/23/2024, Expires: 04/23/2024 [facility] Comment on above: Expected: 01/23/2024, Expires: Start: 01-23-2024 End: 04-23-2024 Lipid 1996 panel - Serum or Plasma LIPID PANEL BASIC Lab Routine Mixed hyperlipidemia Expected: 01/23/2024, Expires: 04/23/2024 [facility] Comment on above: Expected: 01/23/2024, Expires: Start: 12-10-2023 [facility] on above: Postponed from 02/10/2023 (Declined at t his time) Start: 09-27-2023 ANNUAL PCP TEAM CHRONIC DISEASE VISIT ANNUAL PCP TEAM CHRONIC DISEASE VISIT [facility] Start: 09-27-2023 BP CONTROLLED (<130/80) BP CONTROLLED (<130/80) [facility] Start: 09-08-2023 DIABETES SCREEN DIABETES SCREEN [facility] Start: 06-12-2023 Advance Directive Discussion Advance Directive Discussion [facility] Start: 06-12-2023 Behavioral Health Screening Behavioral Health Screening [facility] Start: 06-12-2023 Depression Assessment Depression Assessment [facility] Start: 06-12-2023 End: 09-11-2023 Prostate Specific Ag Free [Mass/volume] in Serum or Plasma PSA FREE Lab Routine Elevated PSA Expected: 06/12/2023, Expires: 09/11/2023 [facility] Work Phone: Comment on above: Expected: 06/12/2023, Expires: Start: 04-01-2023 ANNUAL PCP TEAM CHRONIC DISEASE VISIT ANNUAL PCP TEAM CHRONIC DISEASE VISIT [facility] Start: 04-01-2023 BP CONTROLLED (<130/80) BP CONTROLLED (<130/80) [facility] Start: 04-01-2023 COVID-19 VACCINE (#1) COVID-19 VACCINE (#1) [facility] Comment on above: Postponed from 03/18/1946 (Declined at t his time) Start: 04-01-2023 DEPRESSION ASSESSMENT DEPRESSION ASSESSMENT [facility] Comment on above: Postponed from 06/12/2022 (Postponed To Appropriate Date) Start: 04-01-2023 Influenza vaccination LUNG CANCER SCREENING [facility] Comment on above: Postponed from 12/02/2021 (Declined at t his time) Start: 04-01-2023 Pneumococcal Vaccine: 65+ (1 - PCV) Pneumococcal Vaccine: 65+ (1 - PCV) [facility] Comment on above: Postponed from 09/16/1951 (Declined at t his time) Start: 04-01-2023 PNEUMOCOCCAL: 65+ (1 - PCV) PNEUMOCOCCAL: 65+ (1 - PCV) [facility] Comment on above: Postponed from 09/16/1951 (Declined at t his time) Start: 02-10-2023 Covid-19 Vaccine (2022- season) Covid-19 Vaccine (2022- season) [facility] Start: 02-10-2023 Influenza vaccination [facility] Start: 12-09-2022 Influenza vaccination INFLUENZA (#1) [facility] Comment on above: Postponed from 02/10/2022 (Declined at t his time) Start: 11-16-2022 End: 11-17-2023 Cobalamin (Vitamin B12) [Mass/volume] in Serum or Plasma VITAMIN B12 BLOOD Lab Routine Thrombocytosis Essential (hemorrhagic) thrombocythemia (HCC) Expected: 11/16/2022, Expires: 11/17/2023 [facility] Work Phone: Comment on above: Expected: 11/16/2022, Expires: 4 Start: 11-16-2022 End: 01-16-2023 Erythrocyte sedimentation rate SED RATE WESTERGREN Lab Routine Thrombocytosis Essential (hemorrhagic) thrombocythemia (HCC) Expected: 11/16/2022, Expires: 01/16/2023 [facility] Work Phone: Comment on above: Expected: 11/16/2022, Expires: 3 Start: 11-16-2022 End: 11-17-2023 Ferritin [Mass/volume] in Serum or Plasma FERRITIN BLD Lab Routine Thrombocytosis Essential (hemorrhagic) thrombocythemia (HCC) Expected: 11/16/2022, Expires: 11/17/2023 [facility] Work Phone: Comment on above: Expected: 11/16/2022, Expires: 4 Start: 11-16-2022 End: 11-17-2023 Iron and Iron binding capacity panel - Serum or Plasma IRON + TIBC Lab Routine Thrombocytosis Essential (hemorrhagic) thrombocythemia (HCC) Expected: 11/16/2022 (Approximate), Expires: 11/17/2023 [facility] Work Phone: Comment on above: Expected: 11/16/2022 (Approximate), Expi res: 11/17/2023 Start: 11-16-2022 End: 01-16-2023 MYELOPROLIFERATIVE NEOPLASM PANEL BLOOD MYELOPROLIFERATIVE NEOPLASM PANEL BLOOD Lab Routine Thrombocytosis Essential (hemorrhagic) thrombocythemia (HCC) Expected: 11/16/2022, Expires: 01/16/2023 [facility] Work Phone: Comment on above: Expected: 11/16/2022, Expires: 3 Start: 10-01-2022 ANNUAL PCP TEAM CHRONIC DISEASE VISIT ANNUAL PCP TEAM CHRONIC DISEASE VISIT [facility] Start: 10-01-2022 BP CONTROLLED (<130/80) BP CONTROLLED (<130/80) [facility] Start: 10-01-2022 SHINGRIX VACCINE (1 of 2) SHINGRIX VACCINE (1 of 2) [facility] Comment on above: Postponed from 09/16/1997 (Declined at t his time) Start: 09-16-2022 RSV Vaccine (1 - 1-dose 75+ series) RSV Vaccine (1 - 1-dose 75+ series) [facility] Start: 06-12-2022 Depression Assessment Depression Assessment [facility] Start: 02-25-2022 Adult depression screening assessment DEPRESSION SCREENING [facility] Start: 02-25-2022 COVID-19 VACCINE (#1) COVID-19 VACCINE (#1) [facility] Comment on above: Postponed from 09/16/1950 (Declined at t his time) Start: 02-25-2022 COVID-19 VACCINE (1) COVID-19 VACCINE (1) [facility] Comment on above: Postponed from 09/16/1950 (Declined at t his time) Start: 02-10-2022 Influenza [facility] Start: 02-04-2022 BP CONTROLLED (<130/80) BP CONTROLLED (<130/80) [facility] Start: 12-02-2021 Influenza vaccination LUNG CANCER SCREENING [facility] Start: 12-02-2021 Screening for malignant neoplasm of lung Lung Cancer Screening [facility] Start: 10-01-2021 End: 12-01-2021 CBC panel - Blood by Automated count CBC Lab Routine Essential hypertension Expected: 10/01/2021, Expires: 12/01/2021 [facility] Work Phone: Comment on above: Expected: 10/01/2021, Expires: 2 Start: 10-01-2021 End: 12-01-2021 Comprehensive metabolic 2000 panel - Serum or Plasma COMP METABOLIC PANEL Lab Routine Essential hypertension Expected: 10/01/2021, Expires: 12/01/2021 [facility] Work Phone: Comment on above: Expected: 10/01/2021, Expires: 2 Start: 10-01-2021 End: 12-01-2021 LIPID PANEL BASIC LIPID PANEL BASIC Lab Routine Essential hypertension Expected: 10/01/2021, Expires: 12/01/2021 [facility] Work Phone: Comment on above: Expected: 10/01/2021, Expires: 2 Start: 10-01-2021 End: 12-01-2021 PSA/PROSTSPECAG SCRN PSA/PROSTSPECAG SCRN Lab Routine Screening for prostate cancer Expected: 10/01/2021, Expires: 12/01/2021 [facility] Work Phone: Comment on above: Expected: 10/01/2021, Expires: 2 Start: 05-15-2019 FECAL OCCULT BLOOD FECAL OCCULT BLOOD [facility] Start: 05-15-2019 Screening for malignant neoplasm of colon Fecal Occult Blood [facility] Start: 09-16-1997 SHINGRIX VACCINE (1 of 2) SHINGRIX VACCINE (1 of 2) [facility] Start: 09-16-1992 COLOGUARD (FIT-DNA) COLOGUARD (FIT-DNA) [facility] Start: 09-16-[address] COLONOGRAPHY [facility] Start: 09-16-1992 Screening for malignant neoplasm of colon [facility] Start: 09-16-1992 SIGMOIDOSCOPY SIGMOIDOSCOPY [facility] Start: 09-16-1965 Anxiety Screening Anxiety Screening [facility] Start: 09-16-1965 Depression Screening Depression Screening [facility] Start: 09-16-1951 Pneumococcal Vaccine: 65+ (1 - PCV) Pneumococcal Vaccine: 65+ (1 - PCV) [facility] Start: 09-16-1953 Pneumococcal Vaccine: 65+ (1 of 2 - PCV) Pneumococcal Vaccine: 65+ (1 of 2 - PCV) [facility] Start: [birth year]-16-1951 PNEUMOCOCCAL: 65+ (1 - PCV) PNEUMOCOCCAL: 65+ (1 - PCV) [facility] Start: 03-18-1946 Covid-19 Vaccine (#1) Covid-19 Vaccine (#1) [facility] CT Neck W contrast IV CTA NECK W IVCON Radiology Routine Hemispheric carotid artery syndrome 12/24/2024 2:10 PM EDT [facility] CTA Head Arteries W contrast IV CTA HEAD W IVCON Radiology Routine Hemispheric carotid artery syndrome 12/24/2024 2:10 PM EDT [facility] Work Phone: ECG COMPLETE ECG COMPLETE ECG 01/28/2025 1:17 PM EDT [facility] End: 12-19-2025 Echocardiography ECHO Cardiology Routine Right carotid bruit Dyspnea on exertion 1 Occurrences starting 12/19/2024 until 12/19/2025 [facility] Work Phone: Comment on above: 1 Occurrences starting 12/19/2024 until 12/19/2025 End: 02-27-2026 NM Heart Perfusion W stress and W radionuclide IV NM CARDIAC PERF STRESS/PHARM Radiology Routine Encounter for screening for cardiovascular disorders Silent myocardial ischemia 1 Occurrences starting 01/28/2025 until 02/27/2026 [facility] Work Phone: Comment on above: 1 Occurrences starting 01/28/2025 until 02/27/2026 NM Heart Perfusion W stress and W radionuclide IV NM CARDIAC PERF STRESS/PHARM Radiology Routine Encounter for screening for cardiovascular disorders Silent myocardial ischemia 01/30/2025 2:47 PM EDT [facility] Work Phone: End: 11-01-2025 US Lower extremity artery - bilateral [facility] Vascular Lab Routine Peripheral artery disease 1 Occurrences starting 11/01/2024 until 11/01/2025 [facility] Comment on above: 1 Occurrences starting 11/01/2024 until 11/01/2025 [facility] Immunizations Immunization Date Immunization Notes Care Provider Radha kumar 02-14-2019 influenza virus vacc ine, unspecified formulation Renetta Sheets DO Work Phone: [facility] Payers Date Payer Category Payer Self-pay 2012 Medicare MEDICARE MEDICAR E A AND B [id number] 2012-Present [phone] [address] [address] [place] [address] Medicare [id number] 2012 Medicare [id number] 2012 Medicare [id number] Unknown [id number] Unknown [id number] Unknown [id number] Unknown [id number] Social History Date Type Detail Facility Start: 12-25-2014 End: 11-01-2024 Tobacco smoking status PAIS Smokes tobacco daily [facility] History of tobacco use Cigarette Smoker C [facility] Start: 12-25-2014 End: 11-16-2022 Cigarettes smoked current (pack per day) - Reported 1.5 [facility] Work Phone: Start: 12-25-2014 End: 11-01-2024 Tobacco use and exposure Smokeless tobacco non-user [facility] Start: 10-01-2021 End: 12-19-2024 Alcohol intake Current drinker of alcohol (finding) [facility] Start: 02-25-2021 History SDOH Alcohol Comment 4 beer/daily [facility] Start: 04-18-2018 End: 05-10-2023 Tobacco Comment start age: 17 [facility] Start: 1945 Sex Assigned At Not on file C [facility] Start: 09-21-2021 End: 11-12-2021 Exposure to SARS-CoV-2 (event) Not sure [facility] Start: 09-26-2022 End: 11-16-2022 Tobacco use panel [facility] Work Phone: Start: 12-25-2014 Adult Depression Screening Assessment 0 [facility] Work Phone: Has the [employer], or [employer] threatened to shut off services in your home in past 12Mo No [facility] Are you now , , , , never or living with a partner? Never [facility] How often to you hav e a drink containing alcohol? 4 or more times a week [facility] How many standard drinks containing alcohol do you have on a typical day? 7 to 9 [facility] How often do you hav e 6 or more drinks on 1 occasion? Daily or almost daily [facility] Do you feel stress - tense, restless, nervous, or anxious, or unable to sleep at night because your mind is troubled all the time - these days [OSQ] Only a little [facility] (I/We) worried nirav er (my/our) food would run out before (I/we) got money to buy more. Never true [facility] Start: 01-28-2025 End: 02-07-2025 Alcoholic beverage intake Ex-drinker (finding) [facility] Start: 01-28-2025 Alcohol Comment 6 beer/daily [facility] Start: 03-19-2025 End: 04-03-2025 Tobacco smoking status NHIS Current Heavy tobacco smoker [facility] Start: 1945 Sex Assigned At Male [facility] Goals Date Patient Goal Desired Activity /State Personal health goal Functional Status Date Assessment Result Facility 2024 Total score [AUDIT-C] 11 025 1:01 PM EDT Yury Erwin MA [facility] 2024 Humiliation, Afraid, Rape, and Kick questionnaire [HARK] [facility] 01-09-2015 Are you deaf, or do you have serious difficulty hearing Yes 01/09/2015 2:11 PM EDT Roderick Dunham [employer] Yes [facility] 01-09-2015 Are you blind, or do you have serious difficulty seeing, even when wearing glasses No 01/09/2015 2:11 PM EDT R[employer]ick [employer] No [facility] 01-09-2015 Do you have serious difficulty walking or climbing stairs Yes 01/09/2015 2:11 PM EDT R[employer]ick [employer] Yes [facility] 01-09-2015 Do you have difficul ty dressing or bathing Yes 01/09/2015 2:11 PM EDT [employer] Yes [facility] 01-09-2015 Because of a physica l, mental, or emotional condition, do you have difficulty doing errands alone such as visiting a physician's office or shopping Yes 01/09/2015 2:11 PM EDT Roderick [employer]ham [employer] Yes [facility] Mental Status Date Assessment Result Facility 01-09-2015 Because of a physica l, mental, or emotional condition, do you have serious difficulty concentrating, remembering, or making decisions No 01/09/2015 2:11 PM EDT Roderick [employer] No [facility] Clinical Notes 12-27-2017 to 04-21-2025 Note Date & Type Note Facility 04-21-2025 Note [facility] Medical Records Department [address] [place] [address] History Physical Exam 04/21/25 1125 MR#: [id number] Acct: [id number] Name: LITA MEYER Rep #: [id number] : 1945 79 From: Rojas Marion MD PCP: Dr. Renetta Cline, DO Status:ADM IN [facility] H[facility] - General General Date of Admission: 04/21/25 HPI Narrative LITA MEYER, is a 79 M who presents with severe bilateral carotid stenosis which is asymptomatic. He has significant calcification and no anatomic barriers to endarterectomy. Consumes 6-8 alcoholic beverages a day. [facility] Medical History Wears glasses Wears dentures Alcohol use High [...] 81 mg PO QDAY [facility] 5 04/20/25 History atorvastatin 40 mg tablet (Lipitor) 40 mg PO QHS CHOLESTEROL 04/20/25 History cilostazol 100 mg tablet 100 mg PO BID PVD 02/27/25 5 History lisinopril 20 2 tab PO QDAY BP 02/27/25 04/20/25 History mg-hydrochlorothiazide 12.5 mg tablet metoprolol succinate 25 mg 25 mg PO BID BP 02/27/25 04/21/25 06:15 History tablet,extended release 24 hr clopidogrel 75 mg tablet (Plavix) 75 mg PO DAILY PVD 90 days #90 ta bs 03/25/25 04/20/25 Rx Allergy/AdvReac Type Severity Reaction Status Date / Time No Known Allergies Allergy Verified 04/21/25 09:29 Surgical History History of esophagogastroduodenoscopy (EGD) Hx of colonoscopy Social History Smoking Status: Heavy Smoker (>10/day) Tobacco: How many years used: 56 alcohol intake: current alcohol intake frequency: 3 or more drinks per day Alcohol type: beer details: 7-8 beers daily substance use type: does not use caffeine: Yes ROS Constitutional Constitutional: Denies chills, fever(s), frequent falls, lethargy or weakness Eyes Eyes: Denies blind spots, change in vision or loss of vision ENT HEENT: Denies bleeding gums, hoarseness or sore throat Cardiovascular Cardiovascular: Denies abdominal pain, bluish discoloration of hand/feet, chest pain with activity, claudication, cold extremities, cyanosis, dyspnea on exertion, erythema on extremities, irregular heart rhythm, leg edema, leg ulcers, numbness in extremities or weakness in extremities Respiratory/Chest Respiratory/Chest: Denies cough, excessive phlegm production, shortness of breath at rest, shortness of breath with exertion or wheezing Gastrointestinal Gastrointestinal: Denies anorexia, change in stool character, constipation, diarrhea, melena or rectal bleeding Genitourinary Genitourinary: Denies dysuria or hematuria Musculoskeletal Musculoskeletal: Denies abnormal gait Integumentary Integumentary: Reports other Details: ; Denies erythema, non-healing lesions or wounds Neurologic Neurologic: Denies abnormal speech, focal weakness, headache(s), loss of vision, numbness, paresthesias or sensory deficit Hematologic/Lymphatic Hematologic/Lymphatic: Denies easy bleeding, easy bruising or lymphadenopathy Vital Signs Vital Signs Vital Signs: 04/21/25 09:32 04/21/25 09:32 04/21/25 09:58 Temperature 98.3 F 98.3 F Temperature Source Temporal Pulse Rate 69 69 Respiratory Rate 18 18 Respiratory Pattern Normal Blood Pressure 164/83 H 164/83 H Blood Pressure Mean 110 Blood Pressure Source Monitor Blood Pressure Position Semi-Fowlers Blood Pressure Location Left Arm Pulse Ox 97 97 Oxygen Delivery Method Room Air Room Air Weight Weight: 207 lb 3.752 oz Body Mass Index (BMI) 30.6 Physical Exam Const alert, oriented x3, no apparent distress and healthy appearing General Appearance: cooperative; Negative for combative or lethargic Orientation / Consciousness: awake Exam Limitations: no limitations HEENT Head and Scalp: normocephalic and atraumatic Eyes EOMs intact bilaterally General Eye: normal appearance of both eyes Neck full ROM General: trachea midline Resp normal respiratory effort and no use of accessory muscles Effort and Inspection: Negative for labored, stridor or audible wheezes Cardio regular rate and regular rhythm Back/Spine Cervical Spine: cervical ROM normal Extremity full ROM, normal capillary refill and no clubbing, cyanosis or edema (more content not included)... [facility] 03-25-2025 Progress note [facility] 03-25-2025 Progress note Note Date/Time March 25, 2025 3:55pm [facility] [address] [place] [address] OFFICE VISIT Date of Service: 03/25/25 MR#: [id number] Acct: [id number] Name: LITA MEYER Rep #: [id number] : 1945 Provider: Dr. Dl Corral MD Age/Sex: 79/M Location: [facility] Status: Signed HPI HPI History of Present [...] in an extended care facility in the [facility] he has no children he is never [...] Pre-Op Cardiovasc. Assessment, FOR LICE, SEE NOTE [place] [employer] Flour Required: No Accompanied by: Self Is patient [...] you fallen in the past year?: [facility] History Alcohol dependence Peripheral arterial disease [...] Additional Comments: This note was generated with reQall dictation software. It may contain incorrectwords, spelling, and [...] CC: Dr. Rojas Marion MD; Dr. Renetta Cline, DO ~ [facility] Work Phone: [phone]) 635-796910-08-2025 Evaluation note* Diagnosis Onset Date Resolution Status Admit Date Bilateral carotid artery stenosis chronic March 19 2:44pm Acquired left ventricular outflow tract obstruction acute 2024 2:43pm Essential (primary) hypertension acute March 25 2:43pm LVH (left ventricular hypertrophy) acute March 25 2:43pm Mixed hyperlipidemia acute 2024 2:43pm Pre-op evaluation acute March 25, 2025 2:43pm Smoker acute March 25, 2025 2:43pm Bilateral carotid artery stenosis chronic March 25 2:43pm [facility] Work Phone: [phone]) 579-740009-05-2025 Telephone encounter Note* Telephone Encounter - Sandi Soto - 02/14/2025 10:41 AM EDT Mikala from [facility] received a referral for this patient to be seen in their offices. Mikala requesting recent testing reports to be faxed to the office at [phone]. Reports faxed via [employer]. [facility]09-05-2025 Miscellaneous Notes* Telephone Encounter - Sandi Soto - 02/14/2025 10:41 AM EDT Mikala from [facility] received a referral for this patient to be seen in their offices. Mikala requesting recent testing reports to be faxed to the office at [phone]. Reports faxed via [employer]. documented in this encounterMet[facility]08-29-[facility] History of Present illness Narrative* Anthony Egan MD - 02/07/2025 1:00 PM EDT Images from the original note were not included. [facility] EST[facility] CLINIC VISIT Lita Meyer [id number] HISTORY OF PRESENT ILLNESS: Mr. Meyer is [...] not wish to proceed with surgery at [facility] where I perform these surgeries. We discussed a referral to my other partners in the region however he has issues with driving and all locations are too far from home. We discussed alternative transportation - family member, [employer]er [employer] ride, etc. He did not wish to pursue these options. He was comfortable with pursuing care in [place] due to familiarity with thearea. I provided a referral to vascular surgery in [place] with Dr. Marino. We discussed the options for management and [...] may have been partially generated using the reQall voice recognition system as well as artificial [...] beer/daily Drug use: No documented in this encounterMetro[facility]08-29-2025 NoteHNO ID: [id number] Author: ANTHONY EGAN MD Service: ? Author Type: Physician Type: Progress Notes Filed: 02/07/2025 13:42 Note Text: [facility] EST[facility] CLINIC VISIT Lita Meyer [id number] HISTORY OF PRESENT ILLNESS: Mr. Meyer is [...] medical management and gonzalo (more content not included)...[facility]08-25-2025 Telephone encounter Note* Telephone Encounter - Americo Cano RN - 02/03/2025 3:27 PM EDT Called pt spoke to Devan Cook Pt verbalizes understanding of message. She wrote down [facility]08-25-2025 Miscellaneous Notes* Telephone Encounter - Americo Cano RN - 02/03/2025 3:27 PM EDT Called pt spoke to Devan Cook Pt verbalizes understanding of message. She wrote down * Telephone Encounter - Jaz You RN - 02/03/2025 10:26 AM EDT Images from the original note were not included. [facility]: 01/28/2025- Juan Miguel Mathew MD Result Note Nuclear stress test showed artifact / scarring but no significant ischemia of the heart muscle. Continue present medical therapy. NM CARDIAC PERF STRESS/PHARM documented in this encounterMetro[facility]08-25-2025 Telephone encounter Note * Telephone Encounter - Jaz You RN - 02/03/2025 10:26 AM EDT Images from the original note were not included. [facility]: 01/28/2025- Juan Miguel Mathew MD Result Note Nuclear stress test showed artifact / scarring but no significant ischemia of the heart muscle. Continue present medical therapy. NM CARDIAC PERF STRESS/PHARM [facility]08-21-2025 History of Present illness Narrative* Kim Boyer, CT - 01/30/2025 12:45 PM EDT RADIOLOGY SERVICE [...] PATIENT PRESENTS WITH AN IMPLANTABLE OR ATTACHED RELEASE SPECIALIST: No CREATININE: Creatinine Date Value Ref Range [...] STATUS: Discontinued PROCEDURE TYPE: NM Stress: 12.7mCi [id number] was administered IV for Rest Imaging at 12:52 by . 33.9 mCi [id number] was administered IV for Stress Imaging at 13:56 by . PATIENT DISCHARGED TO: Ambulatory patient, left [place] department area. Is this a therapy: No A Diagnostic radioactive procedure has taken place, with no further precautions necessary other than routine body substance precautions. More information regarding radiation safety can be found usingthis link: [email or web address] SIGNATURE: ARTHUR Tinajero PATIENT NAME: Lita Meyer DATE: January 30, 2025 TIME: 1:00 PM PAGER/CONTACT #: documented in this encounterMetrohealth [facility]08-21-2025 NoteHNO ID: [id number] Author: KIM BOYER CT Service: Nuclear Medicine [...] PATIENT PRESENTS WITH AN IMPLANTABLE OR ATTACHED RELEASE SPECIALIST: No CREATININE: Creatinine Date Value Ref Range [...] STATUS: Discontinued PROCEDURE TYPE: NM Stress: 12.7mCi [id number] was administered IV for Rest Imaging at 12:52 by . 33.9 mCi [id number] was administered IV for Stress Imaging at 13:56 by . PATIENT DISCHARGED TO: Ambulatory patient, left NM department area. Is this a therapy: No A Diagnostic radioactive procedure has taken place, with no further precautions necessary other than routine body substance precautions. More information regarding radiation safety can be found using this link: [email or web address] SIGNATURE: ARTHUR Tinajero PATIENT NAME: Lita Meyer DATE: January 30, 2025 TIME: 1:00 PM [phone] Instructions* Patient Instructions* Juan Miguel Rodriguez MD [...] carotid arteries [facility]. The procedure will involve making an [...] concerns before your surgery. documented in this encounterMetro[facility]08-19-2025 NoteHNO ID: [id number] Author: JUAN MIGUEL RODRIGUEZ MD Service: ? Author Type: Physician Type: Progress Notes Filed: 01/31/2025 16:23 Note Text: [facility] Department of Cardiovascular Medicine SECTION [...] to be scheduled for carotid endarterectomy at [facility] to address bilateral carotid artery stenosis, [...] Normocephalic. Face is symmetrica (more content not included)...[facility]08-19-[facility] History of Present illness Narrative* Juan Miguel Rodriguez MD - 01/28/2025 1:24 PM EDT Images from the original note were not included. [facility] Department of Cardiovascular Medicine SECTION [...] to be scheduled for carotid endarterectomy at [facility] to address bilateral carotidartery stenosis, with [...] 74 - 99 mg/dL Final Comment: The [place] [employer] (ADA) provides guidance for cutoff [...] Standards of Medical Care in Diabetes 2016, [place] [employer]. Diabetes Care. 2016.39(Suppl 1). BUN [...] Adequate hydration. Juan Miguel Rodriguez MD, FACC. Paint Striping Machine Operator, Dept of Cardiology, [facility]. Staff Vocational Training Teacher, [facility], [facility]. The patient note was entered by CHERRY Nixon, under revision and guidance of Juan Miguel [...] beer/daily Drug use: No documented in this encounterMetrohealth [facility]07-15-2025 History of Present illness Narrative* [...] PATIENT PRESENTS WITH AN IMPLANTABLE OR ATTACHED RELEASE SPECIALIST: No ALLERGIES: Reviewed and unchanged CONTRAST ALLERGY: [...] Completed: CTA Brain and CTA Neck SIGNATURE: RYAN Kraus) PATIENT NAME: Lita Meyer DATE: December 24, 2024 TIME: 2:54 PM documented in this encounterMetrohealth [facility]07-15-2025 NoteHNO ID: [id number] Author: CITLALY HOBSON RT (R) Service: Radiology Author Type: Osteology Teacher Type: Progress Notes Filed: 12/24/2024 14:54 Note [...] PATIENT PRESENTS WITH AN IMPLANTABLE OR ATTACHED RELEASE SPECIALIST: No ALLERGIES: Reviewed and unchanged CONTRAST ALLERGY: [...] Meyer DATE: December 24, 2024 TIME: 2:54 [facility]07-10-2025 NoteHNO ID: [id number] Author: ANTHONY EGAN MD Service: ? Author Type: Physician Type: Progress Notes Filed: 01/09/2025 16:30 Note Text: [facility] ESTABLISHED CLINIC VISIT Lita Meyer [id number] HISTORY OF PRESENT ILLNESS: Lita Meyer is a 79-year-old male, with a history of carotid artery stenosis, presenting for follow-up. Lita reports feeling well overall and denies experiencing any pain while walking. He does report dyspnea on exertion, particularly when walking at a fast pace, but denies any chest pain, palpitations, or dyspnea at rest. He also denies any history of CVA or CT. He denies any leg swelling, he does [...] heterogeneous calcified and shado (more content not included)...[facility]07-10-20[facility] History of Present illness Narrative* Anthony Egan MD - 12/19/2024 12:35 PM EDT Images from the original note were not included. [facility] ESTABLISHED CLINIC VISIT Lita Meyer [id number] HISTORY OF PRESENT ILLNESS: Lita Meyer is a 79-year-old male, with a history of carotid artery stenosis, presenting for follow-up. Lita reports feeling well overall and denies experiencing any pain while walking. He does report dyspnea on exertion, particularly when walking at a fast pace, but denies any chest pain, palpitations, or dyspnea at rest. He also denies any history of CVA or CT. He denies any leg swelling, he doesexperience [...] used as recommended by [employer] Commission. Julisa was notified with results at 4:15pm. RIGHT [...] may have been partially generated using the reQall voice recognition system as well as artificial intelligence technology. While every effort was made to correct voice recognition errors, kindly be aware that some errors may occasionally occur. documented in this encounterMetro[facility]07-01-2025 Telephone encounter Note * Telephone [...] or dizziness to be seen in ER. [facility]07-01-[facility] Miscellaneous Notes* Telephone Encounter - [...] be seen in ER. documented in this encounterMetrohealth [facility]06-09-2025 Telephone encounter Note * Telephone [...] Please review and advise. Yury Erwin MA [facility]06-09-[facility]25 Miscellaneous Notes* Telephone Encounter - [...] advise. Yury Erwin MA documented in this encounterMetrohealth [facility]05-23-2025 Instructions* Patient Instructions* Anthony Egan [...] weeks, by following this protocol. The [employer] InterSocietal Consensus II (TASC II) Recommendation for lipid control in patients with peripheral arterial disease (PAD) All symptomatic PAD patients should have their low-density lipoprotein (LDL)- cholesterol lowered to(<100 mg/dL). In patients with PAD and a history of vascular disease in other beds (e.g.coronary artery disease) it is reasonable to lower LDL cholesterol levels to (<70 mg/dL) documented in this encounterMetrohealth [facility]05-23-2025 History of Present illness Narrative* Anthony Egan MD - 11/01/2024 12:30 PM EDT Images from the original note were not included. [facility] DEPARTMENT OF VASCULAR SURGERY OUTPATIENT VISIT DATE November 01, 2024 OUTPATIENT VISIT TYPE CONSULTATION PRIMARY CARE PHYSICIAN: Renetta Cline DO REFERRING PROVIDER: Renetta Cline [address] [facility] [address] Consult requested for an opinion regarding the [...] rapid walking. He denies any history of CT, CVA, TIA, or surgeries, except for a [...] STUDIES: The 10-year ASCVD risk score (Renny DK, et al., 2019) is: 29.4% Values used [...] may have been partially generated using the reQall voice recognition system as well as artificial intelligence technology. While every effort was made to correct voice recognition errors, kindly be aware that some errors may occasionally occur. documented in this encounterMetrohealth [facility]05-23-2025 NoteHNO ID: [id number] Author: ANTHONY EGAN MD Service: ? Author Type: Physician Type: Progress Notes Filed: 11/17/2024 19:23 Note Text: [facility] DEPARTMENT OF VASCULAR SURGERY OUTPATIENT VISIT DATE November 01, 2024 OUTPATIENT VISIT TYPE CONSULTATION PRIMARY CARE PHYSICIAN: Renetta Cline DO REFERRING PROVIDER: Renetta Cline [address] [place] [id number] Consult requested for an opinion regarding the [...] rapid walking. He denies any history of CT, CVA, TIA, or surgeries, except for a [...] LEFT INTERNAL ILIAC AR (more content not included)...[facility]05-02-2025 Telephone encounter Note* Telephone Encounter - [...] Please review and advise. Belem Martines MA [facility]05-02-2025 Miscellaneous Notes* Telephone Encounter - [...] advise. Belem Martines MA documented in this encounterMetrohealth [facility]04-08-2025 Instructions* Patient Instructions* Renetta Cline DO - 2024 1:26 PM EDT Take a baby aspirin every day documented in this encounterMetrohealth [facility]04-08-2025 NoteHNO ID: [id number] Author: RENETTA CLINE DO Service: ? Author [...] ICD10: E66.811 Lifestyle modification recommended [facility] History of Present illness Narrative* Renetta ClineDO - 2024 1:16 PM EDT Images from [...] recommended Renetta Cline DO documented in this encounterMetrohealth [facility]04-01-2025 Telephone encounter Note * Telephone [...] Please review and advise. Yury Erwin MA [facility]04-01-2025 Miscellaneous Notes* Telephone Encounter - [...] advise. Yury Erwin MA documented in this encounterMetrohealth [facility]02-18-2025 Telephone encounter Note * Telephone [...] Please review and advise. Yury Erwin MA [facility]02-18-[facility]25 Miscellaneous Notes* Telephone Encounter - [...] advise. Yury Erwin MA documented in this encounterMetrohealth [facility] Center11-14-2024 Telephone encounter Note * Telephone [...] Please review and advise. Yury Erwin MA [facility]11-14-2024 Miscellaneous Notes* Telephone Encounter - [...] advise. Yury Erwin MA documented in this encounterMetrohealth [facility]10-08-2024 History of Present illness Narrative* [...] recommended Renetta Cline DO documented in this encounterMetrohealth [facility]09-09-2024 Telephone encounter Note * Telephone Encounter - Liliana Saldana MA - 02/19/2024 11:55 AM EDT Patient girlfriend(ninfa notified) notified. . Liliana Saldana MA [facility]09-09-[facility]24 Miscellaneous Notes* Telephone Encounter - Liliana Saldana MA - 02/19/2024 11:55 AM EDT Patient girlfriend(ninfa notified) notified. . Liliana Saldana MA documented in this encounterMetrohealth [facility]08-20-2024 Telephone encounter Note * Telephone Encounter - Citlaly He MA - 01/30/2024 8:43 AM EDT VM box is full do letter has been sent Citlaly He MA [facility]08-20-2024 Miscellaneous Notes* Telephone Encounter - [...] AM EDT Patient is switching to DDM Jovel Citlaly He MA * Telephone Encounter - [...] advise. Yury Erwin MA documented in this encounterMetrohealth [facility]08-15-2024 Telephone encounter Note * Telephone Encounter - Citlaly He MA - 01/25/2024 4:07 PM EDT VM box is full Citlaly He MA [facility]08-13-[facility] Telephone encounter Note* Telephone Encounter - Liliana Saldana MA - 01/23/2024 4:00 PM EDT Mail box is full. Liliana Saldana MA [facility]08-13-2024 Telephone encounter Note* Telephone Encounter - Renetta Cline DO - 01/23/2024 1:01 PM EDT Please notify pt they are due for blood work - order attached Renetta Cline DO [facility]08-12-2024 Telephone encounter Note* Telephone Encounter - Citlaly He MA - 01/22/2024 9:33 AM EDT Patient is switching to DDM Jovel Citlaly He MA [facility]08-12-20[facility] Telephone encounter Note* Telephone Encounter [...] Please review and advise. Yury Erwin MA [facility]05-22-2024 Telephone encounter Note* Telephone Encounter [...] by mouth once daily Lilibeth Torres MA [facility]05-22-2024 Miscellaneous Notes* Telephone Encounter - [...] daily Lilibeth Torres MA documented in this encounterMetrohealth [facility]05-17-2024 History of Present illness Narrative* Scotty Mejia MD - 10/27/2023 8:55 AM EDT Images from the original note were not included. [facility] UROLOGY ESTABLISHED PATIENT CLINIC NOTE UROL [facility] PATIENT INFO: Lita Meyer 78 year old PCP: Renetta Cline, IMPRESSION/PLAN: 1. Elevated PSA - ICD9: 790.93, [...] needed Scotty Mejia M.D, MS Associate Staff [facility] documented in this encounterMetrohealth [facility]05-01-2024 Nurse Note* Robb Sebastian MEENA Clarke - 10/11/2023 12:23 PM EDT The patient [...] these results, further management will be instituted. [facility]05-01-[facility] Nurse Note* Sebastian Zamudio MA [...] management will be instituted. documented in this encounterMetrohealth [facility]05-01-2024 Instructions* Patient Instructions* Scotty Mejia [...] and 4:30 PM call our office: at [phone] [employer] Office After 5 PM and on weekends: Call [phone] or [phone] and ask for the urologist sectionizer. The doctor will need to know that you have had a prostate biopsy and what symptoms you are having. documented in this encounterMetrohealth [facility] Center05-01-2024 History of Present illness Narrative* Scotty Mejia MD - 10/11/2023 11:06 AM EDT Images from the original note were not included. [facility] UROLOGY OUTPATIENT PROCEDURE NOTE [employer] [...] path Scotty Mejia MD, MS Associate Staff [facility] documented in this encounterMetrohealth [facility] Center03-20-2024 Miscellaneous Notes* Telephone Encounter - [...] Thank you Amanda Nicholson documented in this encounterMetrohealth [facility] Center02-06-2024 Miscellaneous Notes* Telephone Encounter - [...] advise. Yury Erwin MA documented in this encounterMetrohealth [facility] Center11-29-2023 Instructions* Patient Instructions* Scotty Mejia [...] >25 9.1% 12.2% 15.8% documented in this encounterMetrohealth [facility] Center11-29-2023 History of Present illness Narrative* Scotty Mejia MD - 05/10/2023 1:04 PM EST Images from the original note were not included. [facility] UROLOGY CLINIC CONSULT NOTE UROL [facility] PATIENT: Lita Meyer (77 year old) [...] in 1 month Consultation requested by Dr. Jackson [place] [id number] for an opinion regarding Mr. Meyer and my final recommendations will be communicated back to the requesting physician by way of shared Medical record or letter via US mail. Scotty Mejia MD, MS Associate Staff [facility] documented in this encounterMetrohealth [facility] Center11-29-2023 Nurse Note* Lydia Woodard Ma - 05/10/2023 1:02 PM EST Post void bladder scan completed. 129 ml residual remaining. Results reported to Dr. Mejia documented in this encounterMetrohealth [facility] Center11-03-2023 Miscellaneous Notes* Telephone Encounter - [...] advise. Liliana Saldana MA documented in this encounterMetrohealth [facility] Center10-18-2023 Miscellaneous Notes* Telephone Encounter - [...] attached Renetta Cline DO documented in this encounterMetrohealth [facility] Heights [facility] Center10-17-2023 History of Present illness Narrative* [...] D75.839 Under the care of Dr. Rojas, sole trimmer 4. Peripheral artery disease (HCC) - ICD9: [...] recommended Renetta Cline DO documented in this encounterMetrohealth [facility] Center08-31-2023 History of Present illness Narrative* Sandi Weiss - 02/09/2023 11:13 AM EDT POPULATION HEALTH NAVIGATION OUTREACH Action/FYI Patient Identified by Name and : NO Outreach Outcome/Action Unable to reach patient: Not accepting calls, [facility]. Did you use a PCP flex slot [...] 09, 2023 11:13 AM documented in this encounterMetrohealth [facility] Center08-23-2023 History of Present illness Narrative* [...] 01, 2023 12:48 PM documented in this encounterMetrohealth [facility] Center07-14-2023 Miscellaneous Notes* Telephone Encounter - [...] advise. Yury Erwin MA documented in this encounterMetrohealth [facility] Center06-07-2023 History of Present illness Narrative* [...] which included preparing to see the patient, [id number] patient care, completing clinical documentation, obtaining and/or reviewing separately obtained history, counseling and educating the patient/family/caregiver, ordering medications, zayra ts, or procedures, independently interpreting results (not separately reported), and communicating results to the patient/family/caregiver. Electronically Signed: Sreedhar Rojas MD November 16, 2022 10:57 AM documented in this encounterMetrohealth [facility] Center05-08-2023 Miscellaneous Notes* Telephone Encounter - [...] advise. Liliana Saldana MA documented in this encounterMetrohealth [facility] Center04-25-2023 Miscellaneous Notes* Telephone Encounter - Citlaly He MA - 10/04/2022 3:19 PM EDT Letter sent with labs and referral Citlaly He MA * Telephone Encounter - Renetta Cline DO - 10/04/2022 11:40 AM EDT Please send pt letter. He needs to make appt with Dr. Rojas, sole trimmer, for elevated platelets. He also needs to make appt with Dr. Chaney, manager support services, for amyloidosis and cardiomyopathy andDr. Ashley for [...] will refer him to Dr. Rojas in [place] [employer] - attached Renetta Cline DO documented in this encounterMetrohealth [facility] Center04-21-2023 Miscellaneous Notes* Telephone Encounter - [...] advise. Yury Erwin MA documented in this encounterMetrohealth [facility] Center04-17-2023 History of Present illness Narrative* [...] f/u Renetta Cline DO documented in this encounterMetrohealth [facility] Center10-21-2022 Miscellaneous Notes* Telephone Encounter - [...] advise. Citlaly He MA documented in this encounterMetrohealth [facility] Center06-29-2022 Miscellaneous Notes* Telephone Encounter - [...] to a urologist - Dr. Meier in [place] [employer]. Referral attached Rest of blood work is normal Renetta Cline DO documented in this encounterMetrohealth [facility] Center04-22-2022 History of Present illness Narrative* [...] (Left Ventricular Hypertrophy) Pvd (Peripheral Vascular Disease) (Hcc) Bmi 30.0-30.9,Adult Social History Tobacco Use Smoking [...] the following specialists: Dr. Ashley, vascular, Dr. hCaney, manager support services Review of Systems Constitutional: Negative for chills, [...] recommended Renetta Cline DO documented in this encounter[address] History of Past illness Narrative* Problem Noted Date Resolved Date Chronic ulcer of left foot 12/27/201708/14 documented as of this encounter (statuses as of 10/15/2021) [address]18[address] History of Past illness Narrative* Problem Noted Date Resolved Date Chronic ulcer of left foot 12/27/201708/14 documented as of this encounter (statuses as of 12/08/2021) [place] [id number] History of Past illness Narrative* Problem Noted Date Resolved Date Chronic ulcer of left foot 12/27/201708/14 documented as of this encounter (statuses as of 04/01/2022) [address]18[address] History of Past illness Narrative* Problem Noted Date Resolved Date Chronic ulcer of left foot 12/27/201708/14 documented as of this encounter (statuses as of 09/30/2022) [address] History of Past illness Narrative* Problem Noted Date Resolved Date Chronic ulcer of left foot 12/27/201708/14 documented as of this encounter (statuses as of 10/04/2022) [address] History of Past illness Narrative* Problem Noted Date Resolved Date Chronic ulcer of left foot 12/27/201708/14 documented as of this encounter (statuses as of 10/05/2022) [address] History of Past illness Narrative* Problem Noted Date Resolved Date Chronic ulcer of left foot 12/27/201708/14 documented as of this encounter (statuses as of 10/17/2022) [address] History of Past illness Narrative* Problem Noted Date Resolved Date Chronic ulcer of left foot 12/27/201708/14 documented as of this encounter (statuses as of 11/16/2022) [place] [id number] History of Past illness Narrative* Problem Noted Date Diagnosed Date Resolved Date Chronic ulcer of left foot 12/27/2017 0 08/14/2018 documented as of this encounter (statuses as of 12/26/2022) [place] [address] History of Past illness Narrative* Problem Noted Date Diagnosed Date Resolved Date Chronic ulcer of left foot 12/27/2017 0 08/14/2018 documented as of this encounter (statuses as of 02/01/2023) [address] History of Past illness Narrative* Problem Noted Date Diagnosed Date Resolved Date Chronic ulcer of left foot 12/27/2017 0 08/14/2018 documented as of this encounter (statuses as of 02/09/2023) [place] [id number] History of Past illness Narrative* Problem Noted Date Diagnosed Date Resolved Date Chronic ulcer of left foot 12/27/2017 0 08/14/2018 documented as of this encounter (statuses as of 03/28/2023) [place] [address] History of Past illness Narrative* Problem Noted Date Diagnosed Date Resolved Date Chronic ulcer of left foot 12/27/2017 0 08/14/2018 documented as of this encounter (statuses as of 03/29/2023) [place] [id number] History of Past illness Narrative* Problem Noted Date Diagnosed Date Resolved Date Chronic ulcer of left foot 12/27/2017 0 08/14/2018 documented as of this encounter (statuses as of 04/14/2023) [place] [address] History of Past illness Narrative* Problem Noted Date Diagnosed Date Resolved Date Chronic ulcer of left foot 12/27/2017 0 08/14/2018 documented as of this encounter (statuses as of 05/10/2023) [facility] of Past illness Narrative* Problem Noted Date Diagnosed Date Resolved Date Chronic ulcer of left foot 12/27/2017 0 08/14/2018 documented as of this encounter (statuses as of 07/19/2023) [facility] History of Past illness Narrative* Problem Noted Date Diagnosed Date Resolved Date Chronic ulcer of left foot 12/27/2017 0 08/14/2018 documented as of this encounter (statuses as of 08/31/2023) [facility] Diagnosis Essential hypertension- Primary Unspecified essential hypertension Screening for prostate cancer Special screening for malignant neoplasm of prostate Sinus tachycardia Other specified cardiac dysrhythmias Peripheral artery disease (HCC) Peripheral vascular disease, unspecified Obesity, Class I, BMI 30-34.9 Obesity, unspecified BMI 30.0-30.9,adult Body Mass Index 30.0-30.9, adult documented in this encounter [facility]* Diagnosis Elevated PSA- Primary Elevated prostate specific antigen (PSA) documented in this encounter [facility]* Diagnosis Sinus tachycardia Other specified cardiac dysrhythmias Essential hypertension Unspecified essential hypertension Peripheral artery disease (HCC) Peripheral vascular disease, unspecified Mixed hyperlipidemia documented in this encounter [facility]* Diagnosis Sinus tachycardia Other specified cardiac dysrhythmias Essential hypertension Unspecified essential hypertension documented in this encounter [facility]* Diagnosis Essential hypertension- Primary Unspecified essential hypertension Amyloidosis, unspecified type (HCC) Other cardiomyopathy (HCC) Peripheral artery disease (HCC) Peripheral vascular disease, unspecified [facility] Diagnosis Thrombocytosis- Primary Essential thrombocythemia documented [facility] Diagnosis Mixed hyperlipidemia documented in this [facility] Diagnosis Thrombocytosis- Primary 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) documented in this [facility] Diagnosis Peripheral artery disease (HCC) Peripheral vascular disease, unspecified documented in this [facility] Diagnosis Essential hypertension- Primary Unspecified essential [...] 30-34.9 Obesity, unspecified documented [facility] this [facility] Diagnosis Elevated PSA- Primary Elevated prostate specific antigen (PSA) documented in this [facility] Diagnosis Sinus tachycardia Other specified cardiac dysrhythmias Essential hypertension Unspecified essential hypertension documented in this [facility] Diagnosis Elevated PSA- Primary Elevated prostate specific antigen (PSA) documented in this [facility] Diagnosis Mixed hyperlipidemia Peripheral artery disease (HCC) Peripheral vascular disease, unspecified documented [facility] this [facility] Diagnosis Elevated PSA- Primary Elevated prostate specific antigen (PSA) documented in this [facility] Diagnosis Elevated PSA- Primary Elevated prostate specific antigen (PSA) Benign prostatic hyperplasia without lower urinary tract symptoms [facility] Diagnosis Sinus tachycardia Other specified cardiac dysrhythmias Essential hypertension Unspecified essential hypertension documented in this [facility] Diagnosis Peripheral artery disease (HCC) Peripheral vascular disease, unspecified Sinus tachycardia Other specified cardiac dysrhythmias Essential hypertension Unspecified essential hypertension Mixed hyperlipidemia [facility] Diagnosis Essential hypertension- Primary Unspecified essential hypertension Mixed hyperlipidemia Smoker Tobacco use disorder Obesity, Class I, BMI 30-34.9 Obesity, unspecified [facility] Diagnosis Essential hypertension Unspecified essential hypertension [facility] Diagnosis Peripheral artery disease (HCC) Peripheral vascular disease, unspecified Mixed hyperlipidemia [facility] Diagnosis Essential hypertension Unspecified essential hypertension Sinus tachycardia Other specified cardiac dysrhythmias documented in this [facility]* Diagnosis Medicare annual wellness visit, subsequent- Primary Routine general medical examination at a health care facility Peripheral artery disease Peripheral vascular disease, unspecified Essential hypertension Unspecified essential hypertension Mixed hyperlipidemia Smoker Tobacco use disorder Obesity, Class I, BMI 30-34.9 Obesity, unspecified [facility] Diagnosis Essential hypertension Unspecified essential hypertension Sinus tachycardia Other specified cardiac dysrhythmias documented in this encounter [facility] note* Diagnosis Right carotid bruit- Primary Other symptoms involving cardiovascular system Peripheral artery disease Peripheral vascular disease, unspecified Primary hypertension Unspecified essential hypertension Mixed hyperlipidemia Nicotine dependence, cigarettes, uncomplicated Stenosis of left subclavian artery Atherosclerosis of other specified arteries documented in this encounter [facility] note* Diagnosis Peripheral artery disease Peripheral vascular disease, unspecified Mixed hyperlipidemia Essential hypertension Unspecified essential hypertension Sinus tachycardia Other specified cardiac dysrhythmias documented in this encounter [facility] note* Diagnosis Hemispheric carotid artery syndrome documented in this encounter [facility] note* Diagnosis Dyspnea on exertion- Primary Other dyspnea and respiratory abnormality Hemispheric carotid artery syndrome Right carotid bruit Other symptoms involving cardiovascular system Tobacco use Tobacco use disorder Encounter for screening for cardiovascular disorders Screening for other and unspecified cardiovascular conditions Carotid stenosis, asymptomatic, bilateral Hemispheric carotid artery syndrome documented in this encounter [facility] note* Diagnosis Encounter for screening for [...] specified cardiac dysrhythmias documented in this encounter [facility] note* Diagnosis Encounter for screening for cardiovascular disorders Screening for other and unspecified cardiovascular conditions Silent myocardial ischemia Other specified forms of chronic ischemic heart disease documented in this encounter [facility] note* Diagnosis Right carotid bruit Other symptoms involving cardiovascular system Dyspnea on exertion Other dyspnea and respiratory abnormality documented in this encounter [facility] note* Diagnosis Carotid stenosis, asymptomatic, bilateral- Primary Stenosis of left subclavian artery Atherosclerosis of other specified arteries Peripheral artery disease Peripheral vascular disease, unspecified Mixed hyperlipidemia documented in this encounter [facility] noteNo assessment information availableWestlake [facility] Work Phone: Reason for referral (narrative)No reason for referral information availableBloomington Medical Services Work Phone: Reason for visit Narrative* MRI/CT (Routine) - Closed Specialty Diagnoses / Procedures Referred By Ella fuentes Referred To Contact CT IMAGING Diagnoses Hemispheric carotid artery syndrome Procedures CTA NECK W IVCON CT ANGIOGRAPHY NECK W/CONTRAST/NONCONTRAST Anthony Egan MD [address] [place] [address] Phone: tel: fax: [facility] [place] [address] Referral ID Status Reason Start Date Expiration Date V isits Requested Visits Authorized [id number] Closed Auto-Generate d Referral 12/19/2024 01/18/2026 1 1 [facility] for visit Narrative* Diagnostic Procedure Only (Routine) - Closed Specialty Diagnoses / Procedures Referred By Ella fuentes Referred To Contact [facility]CTIONAL [facility]AGING Diagnoses Encounter for screening for cardiovascular disorders Silent myocardial ischemia Procedures NM CARDIAC PERF STRESS/PHARM MYOCARDIAL SPECT [place] [address] [place] [address] Phone: tel: fax: [facility] [address] [place] [address] Phone: tel: Referral ID Status Reason Start Date Expiration Date V isits Requested Visits Authorized [id number] Closed Auto-Generate d Referral 01/28/2025 02/27/2026 1 1 [facility] for visit Narrative* Diagnostic Procedure Only (Routine) - Closed Specialty Diagnoses / Procedures Referred By Ella fuentes Referred To Contact [facility]CULAR [facility] FUNCTIONAL IMAGING Diagnoses Encounter for screening for cardiovascular disorders Silent myocardial ischemia Procedures NM CARDIAC PERF STRESS/PHARM MYOCARDIAL SPECT MULTIPLE [place] [address] [place] [address] Phone: tel: fax: [facility] [address] [place] [address] Phone: tel: Referral ID Status Reason Start Date Expiration Date V isits Requested Visits Authorized [id number] Closed Auto-Generate d Referral 01/28/2025 02/27/2026 1 [facility] Procedure (Routine) - Closed Specialty Diagnoses / Procedures Referred By Contac t Referred To [facility] Diagnoses Right carotid bruit Dyspnea on exertion Procedures ECHO ECHO TTHRC R-T 2D W/WOM-MODE COMPL SPEC&COLR D Anthony Egan MD [address] [place] [address] Phone: tel: fax: [facility] [place] [address] [place] [address] Referral ID Status Reason Start Date Expiration Date V isits Requested Visits Authorized [id number] Closed Auto-Generate d Referral 12/19/2024 12/19/2025 1 1 [facility] Summary Purpose Family History No Family History Records FoundNo Family History Records FoundNo Family History Records FoundNo Family History Records FoundNo Family History Records Found Advance Directives No Advanced Directives Records FoundDocuments on File Type Date Recorded 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 60-74 MINUTES Renetta Cline DO [address] [place] [address] Kim Meier Jr., MD [address] [place] [address] Referral ID Status Reason Start Date Expiration Date Visits Requested Visits Authorized [id number] Authorized PCP Requested Referral 12/02/2021 12/02/2022 1 1 Specialty Diagnoses / Procedures Referred By Contac t Referred To Contact Hematology/Oncology / [facility] Department Diagnoses Thrombocytosis Procedures CONSULT TO HEMATOLOGY/ONCOLOGY OFFICE/OUTPATIENT [facility] 60-74 MINUTES Marlyn Renetta C, DO [address] [place] [address] Sreedhar Rojas MD [address] [address] Referral ID Status Reason Start Date Expiration Date Visits Requested Visits Authorized [id number] Authorized PCP Requested Referral 09/30/2022 09/30/2023 1 1 Specialty Diagnoses / Procedures Referred By Contac t Referred To Contact Diagnoses Elevated PSA Procedures CONSULT TO UROLOGY OFFICE/OUTPATIENT [facility] 60-74 MINUTES Renetta Cline, DO [address] [place] [address] Kim Meier Jr., MD [address] [place] [address] Referral ID Status Reason Start Date Expiration Date Visits Requested Visits Authorized [id number] Authorized PCP Requested Referral 3 03/27/2024 1 [...] section and content) DATE CREATED AUTHOR 08/14/2019 [facility] DATE CREATED AUTHOR AUTHOR'S ORGANIZ ATION 02/01/2025 [facility] DATE CREATED AUTHOR AUTHOR'S ORGANIZ ATION 02/16/2025 [facility] DATE CREATED AUTHOR AUTHOR'S ORGANIZ ATION 04/19/2025 [facility] DATE CREATED AUTHOR AUTHOR'S ORGANIZ ATION 04/22/2025 [facility] Source Comments (unrecognize d section and content) In the event this informatio n is protected by the Federal Confidentiality of Alcohol and Drug Abuse Patient Records regulations: The Federal rules restrict any use of the information to criminally investigate or prosecute any alcohol or drug abuse patient.[facility] CenterIn the event this information is protected by the Federal Confidentiality of Alcohol and Drug Abuse Patient Records regulations: The Federal rules restrict any use of the information to criminally investigate or prosecute any alcohol or drug abuse patient.[facility] CenterIn the event this information is protected by the Federal Confidentiality of Alcohol and Drug Abuse Patient Records regulations: The Federal rules restrict any use of the information to criminally investigate or prosecute any alcohol or drug abuse patient.[facility] CenterIn the event this information is protected by the Federal Confidentiality of Alcohol and Drug Abuse Patient Records regulations: The Federal rules restrict any use of the information to criminally investigate or prosecute any alcohol or drug abuse patient.[facility] CenterIn the event this information is protected by the Federal Confidentiality of Alcohol and Drug Abuse Patient Records regulations: The Federal rules restrict any use of the information to criminally investigate or prosecute any alcohol or drug abuse patient.[facility] CenterIn the event this information is protected by the Federal Confidentiality of Alcohol and Drug Abuse Patient Records regulations: The Federal rules restrict any use of the information to criminally investigate or prosecute any alcohol or drug abuse patient.[facility] CenterIn the event this information is protected by the Federal Confidentiality of Alcohol and Drug Abuse Patient Records regulations: The Federal rules restrict any use of the information to criminally investigate or prosecute any alcohol or drug abuse patient.[facility] CenterIn the event this information is protected by the Federal Confidentiality of Alcohol and Drug Abuse Patient Records regulations: The Federal rules restrict any use of the information to criminally investigate or prosecute any alcohol or drug abuse patient.[facility] CenterIn the event this information is protected by the Federal Confidentiality of Alcohol and Drug Abuse Patient Records regulations: The Federal rules restrict any use of the information to criminally investigate or prosecute any alcohol or drug abuse patient.[facility] CenterIn the event this information is protected by the Federal Confidentiality of Alcohol and Drug Abuse Patient Records regulations: The Federal rules restrict any use of the information to criminally investigate or prosecute any alcohol or drug abuse patient.[facility] CenterIn the event this information is protected by the Federal Confidentiality of Alcohol and Drug Abuse Patient Records regulations: The Federal rules restrict any use of the information to criminally investigate or prosecute any alcohol or drug abuse patient.[facility] CenterIn the event this information is protected by the Federal Confidentiality of Alcohol and Drug Abuse Patient Records regulations: The Federal rules restrict any use of the information to criminally investigate or prosecute any alcohol or drug abuse patient.[facility] CenterIn the event this information is protected by the Federal Confidentiality of Alcohol and Drug Abuse Patient Records regulations: The Federal rules restrict any use of the information to criminally investigate or prosecute any alcohol or drug abuse patient.[facility] CenterIn the event this information is protected by the Federal Confidentiality of Alcohol and Drug Abuse Patient Records regulations: The Federal rules restrict any use of the information to criminally investigate or prosecute any alcohol or drug abuse patient.[facility] CenterIn the event this information is protected by the Federal Confidentiality of Alcohol and Drug Abuse Patient Records regulations: The Federal rules restrict any use of the information to criminally investigate or prosecute any alcohol or drug abuse patient.[facility] CenterIn the event this information is protected by the Federal Confidentiality of Alcohol and Drug Abuse Patient Records regulations: The Federal rules restrict any use of the information to criminally investigate or prosecute any alcohol or drug abuse patient.[facility] CenterIn the event this information is protected by the Federal Confidentiality of Alcohol and Drug Abuse Patient Records regulations: The Federal rules restrict any use of the information to criminally investigate or prosecute any alcohol or drug abuse patient.[facility] CenterIn the event this information is protected by the Federal Confidentiality of Alcohol and Drug Abuse Patient Records regulations: The Federal rules restrict any use of the information to criminally investigate or prosecute any alcohol or drug abuse patient.[facility] CenterIn the event this information is protected by the Federal Confidentiality of Alcohol and Drug Abuse Patient Records regulations: The Federal rules restrict any use of the information to criminally investigate or prosecute any alcohol or drug abuse patient.[facility] CenterIn the event this information is protected by the Federal Confidentiality of Alcohol and Drug Abuse Patient Records regulations: The Federal rules restrict any use of the information to criminally investigate or prosecute any alcohol or drug abuse patient.[facility] CenterIn the event this information is protected by the Federal Confidentiality of Alcohol and Drug Abuse Patient Records regulations: The Federal rules restrict any use of the information to criminally investigate or prosecute any alcohol or drug abuse patient.[facility] CenterIn the event this information is protected by the Federal Confidentiality of Alcohol and Drug Abuse Patient Records regulations: The Federal rules restrict any use of the information to criminally investigate or prosecute any alcohol or drug abuse patient.[facility] CenterIn the event this information is protected by the Federal Confidentiality of Alcohol and Drug Abuse Patient Records regulations: The Federal rules restrict any use of the information to criminally investigate or prosecute any alcohol or drug abuse patient.[facility] CenterIn the event this information is protected by the Federal Confidentiality of Alcohol and Drug Abuse Patient Records regulations: The Federal rules restrict any use of the information to criminally investigate or prosecute any alcohol or drug abuse patient.[facility] CenterIn the event this information is protected by the Federal Confidentiality of Alcohol and Drug Abuse Patient Records regulations: The Federal rules restrict any use of the information to criminally investigate or prosecute any alcohol or drug abuse patient.[facility] CenterIn the event this information is protected by the Federal Confidentiality of Alcohol and Drug Abuse Patient Records regulations: The Federal rules restrict any use of the information to criminally investigate or prosecute any alcohol or drug abuse patient.[facility] CenterIn the event this information is protected by the Federal Confidentiality of Alcohol and Drug Abuse Patient Records regulations: The Federal rules restrict any use of the information to criminally investigate or prosecute any alcohol or drug abuse patient.[facility] the event this information is protected by the Federal Confidentiality of Alcohol and Drug Abuse Patient Records regulations: The Federal rules restrict any use of the information to criminally investigate or prosecute any alcohol or drug abuse patient.[facility] CenterIn the event this information is protected by the Federal Confidentiality of Alcohol and Drug Abuse Patient Records regulations: The Federal rules restrict any use of the information to criminally investigate or prosecute any alcohol or drug abuse patient.[facility] CenterIn the event this information is protected by the Federal Confidentiality of Alcohol and Drug Abuse Patient Records regulations: The Federal rules restrict any use of the information to criminally investigate or prosecute any alcohol or drug abuse patient.[facility] the event this information is protected by the Federal Confidentiality of Alcohol and Drug Abuse Patient Records regulations: The Federal rules restrict any use of the information to criminally investigate or prosecute any alcohol or drug abuse patient.[facility] CenterIn the event this information is protected by the Federal Confidentiality of Alcohol and Drug Abuse Patient Records regulations: The Federal rules restrict any use of the information to criminally investigate or prosecute any alcohol or drug abuse patient.[facility] CenterIn the event this information is protected by the Federal Confidentiality of Alcohol and Drug Abuse Patient Records regulations: The Federal rules restrict any use of the information to criminally investigate or prosecute any alcohol or drug abuse patient.[facility] CenterIn the event this information is protected by the Federal Confidentiality of Alcohol and Drug Abuse Patient Records regulations: The Federal rules restrict any use of the information to criminally investigate or prosecute any alcohol or drug abuse patient.[facility] CenterIn the event this information is protected by the Federal Confidentiality of Alcohol and Drug Abuse Patient Records regulations: The Federal rules restrict any use of the information to criminally investigate or prosecute any alcohol or drug abuse patient.[facility] CenterIn the event this information is protected by the Federal Confidentiality of Alcohol and Drug Abuse Patient Records regulations: The Federal rules restrict any use of the information to criminally investigate or prosecute any alcohol or drug abuse patient.[facility] CenterIn the event this information is protected by the Federal Confidentiality of Alcohol and Drug Abuse Patient Records regulations: The Federal rules restrict any use of the information to criminally investigate or prosecute any alcohol or drug abuse patient.[facility] CenterIn the event this information is protected by the Federal Confidentiality of Alcohol and Drug Abuse Patient Records regulations: The Federal rules restrict any use of the information to criminally investigate or prosecute any alcohol or drug abuse patient.[facility] CenterIn the event this information is protected by the Federal Confidentiality of Alcohol and Drug Abuse Patient Records regulations: The Federal rules restrict any use of the information to criminally investigate or prosecute any alcohol or drug abuse patient.[facility] CenterIn the event this information is protected by the Federal Confidentiality of Alcohol and Drug Abuse Patient Records regulations: The Federal rules restrict any use of the information to criminally investigate or prosecute any alcohol or drug abuse patient.[facility] CenterIn the event this information is protected by the Federal Confidentiality of Alcohol and Drug Abuse Patient Records regulations: The Federal rules restrict any use of the information to criminally investigate or prosecute any alcohol or drug abuse patient.[facility] [facility] Reason for Visit (unrecogniz ed section and content) Reason Comments Establish 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 60-74 MINUTES Renetta Cline, DO [address] [place] [address] Sreedhar Rojas MD [address] [address] Referral ID Status Reason Start Date Expiration Date V isits Requested Visits Authorized [id number] Closed PCP Requested Referral 09/30/2022 09/30/2023 1 [...] CENTER 60-74 MINUTES Renetta Cline, DO [address] [place] [address] Kim Meier Jr., MD [address] [place] [address] Referral ID Status Reason Start Date Expiration Date V isits Requested Visits Authorized [id number] Closed PCP Requested Referral 03/28/2023 03/27/2024 1 1 Reason Comments Medication Problem Reason Comments Elevated PSA Reason Comments Results Reason Comments F/U HTN 6 Month Reason Onset Date Comments Refill Request 07/30/2024 Reason Comments Medicare Wellness Exam Reason Comments Consult Specialty Diagnoses / Procedures Referred By Contac t Referred To Contact Vascular Medicine Diagnoses Peripheral artery disease Procedures CONSULT TO VASCULAR MEDICINE OFFICE/OUTPATIENT [facility] 60 MINUTES Renetta Cline DO [address] [place] [address] Phone: tel: fax: Denise Ashley DO [address] [address] Phone: tel: Referral ID Status Reason Start Date Expiration Date V isits Requested Visits Authorized [id number] Closed PCP Requested Referral 2024 2025 1 1 Reason Comments Patient Update Elevated HR and BP Reason Comments Established Patient Reason Comments New Patient Specialty Diagnoses / Procedures Referred By Contaddison t Referred To Contact Cardiology Diagnoses Dyspnea on exertion Procedures OFFICE/OUTPATIENT NEW HIGH MDM 60 MINUTES Anthony Egan MD [address] [place] [address] Phone: tel: fax: Referral ID Status Reason Start Date Expiration Date V isits Requested Visits Authorized [id number] Closed PCP Requested Referral 12/19/2024 12/19/2025 1 1 Reason Comments Established Patient Reason Comments Opened In Error Care Teams (unrecognized sec tion and content) Burrer Operator Relationship Specialty Start Date End Date SheetsRenetta DO [address] [place] [address] PCP - General Family Practice 08/17/21 Burrer Operator Relationship Specialty Start Date End Date SheetsRenetta DO [address] [place] [address] PCP - General Family Practice 08/17/21 Burrer Operator Relationship Specialty Start Date End Date SheetsRenetta DO [address] [place] [address] PCP - General Family Medicine 08/17/21 Burrer Operator Relationship Specialty Start Date End Date Renetta Cline, DO [address] [place] [address] PCP - General Family Medicine 08/17/21 Burrer Operator Relationship Specialty Start Date End Date SheetsRenetta DO [address] [place] [address] PCP - General Family Medicine 08/17/21 Burrer Operator Relationship Specialty Start Date End Date SheetsRenetta DO [address] [place] [address] PCP - General Family Medicine 08/17/21 Burrer Operator Relationship Specialty Start Date End Date Renetta Cline DO [address] [place] [address] PCP - General Family Medicine 08/17/21 Burrer Operator Relationship Specialty Start Date End Date Renetta Cline DO [address] [place] [address] PCP - General Family Medicine 08/17/21 Burrer Operator Relationship Specialty Start Date End Date Renetta Cline DO [address] [place] [address] PCP - General Family Medicine 08/17/21 Burrer Operator Relationship Specialty Start Date End Date Renetta Cline DO [address] [place] [address] PCP - General Family Medicine 08/17/21 Burrer Operator Relationship Specialty Start Date End Date Renetta Cline DO [address] [place] [address] PCP - General Family Medicine 08/17/21 Burrer Operator Relationship Specialty Start Date End Date Renetta Cline DO [address] [place] [address] PCP - General Family Medicine 08/17/21 Burrer Operator Relationship Specialty Start Date End Date Renetta Cline DO [address] [place] [address] PCP - General Family Medicine 08/17/21 Burrer Operator Relationship Specialty Start Date End Date Renetta Cline DO [address] [place] [address] PCP - General Family Medicine 08/17/21 Burrer Operator Relationship Specialty Start Date End Date Marlyn Renetta Johns DO [address] [place] [address] PCP - General Family Medicine 08/17/21 Burrer Operator Relationship Specialty Start Date End Date Sheets Renetta Johns DO [address] [place] [address] PCP - General Family Medicine 08/17/21 Burrer Operator Relationship Specialty Start Date End Date Renetta Cline DO [address] [place] [address] PCP - General Family Medicine 08/17/21 Burrer Operator Relationship Specialty Start Date End Date SheetsRenetta DO [address] [place] [address] PCP - General Family Medicine 08/17/21 Burrer Operator Relationship Specialty Start Date End Date Renetta Cline DO [address] [place] [address] PCP - General Family Medicine 08/17/21 Burrer Operator Relationship Specialty Start Date End Date SheetsRenetta DO [address] [place] [address] PCP - General Family Medicine 08/17/21 Burrer Operator Relationship Specialty Start Date End Date Renetta Cline DO [address] [place] [address] PCP - General Family Medicine 08/17/21 Burrer Operator Relationship Specialty Start Date End Date SheetsRenetta DO [address] [place] [address] PCP - General Family Medicine 08/17/21 Burrer Operator Relationship Specialty Start Date End Date SheetsRenetta DO [address] [place], [place] [id number] PCP - General Family Medicine 08/17/21 Burrer Operator Relationship Specialty Start Date End Date SheetsRenetta DO [address] [place], [place] [id number] PCP - General Family Medicine 08/17/21 Burrer Operator Relationship Specialty Start Date End Date SheetsRenetta DO [address] [place] [address] PCP - General Family Medicine 08/17/21 Burrer Operator Relationship Specialty Start Date End Date SheetsRenetta DO [address] [place] [address] PCP - General Family Medicine 08/17/21 Juan Miguel Rodriguez MD [address] [place] [facility] [place] [address] Cardiology 01/28/25 Burrer Operator Relationship Specialty Start Date End Date SheetsRenetta DO [address] [facility] [place] [address] PCP - General Family Medicine 08/17/21 Juan Miguel Rodriguez MD [address] [facility] [place] [address] Cardiology 01/28/25 Burrer Operator Relationship Specialty Start Date End Date SheetsRenetta DO [address] [place] [address] PCP - General Family Medicine 08/17/21 Juan Miguel Rodriguez MD [address] [place] [facility] [place] [address] Cardiology 01/28/25 Burrer Operator Relationship Specialty Start Date End Date Renetta Cline DO [address] [place] [address] PCP - General Family Medicine 08/17/21 Juan Miguel Rodriguez MD [address] [place] [facility] [place] [address] Cardiology 01/28/25 Burrer Operator Relationship Specialty Start Date End Date Renetta Cline DO [address] [place] [address] PCP - General Family Medicine 08/17/21 Juan Miguel Rodriguez MD [address] [place] [place] [address] Cardiology 01/28/25 Burrer Operator Relationship Specialty Start Date End Date Renetta Cline DO [address] [place] [address] PCP - General Family Medicine 08/17/21 Juan Miguel Rodriguez MD [address] [place] [place] [address] Cardiology 01/28/25 Burrer Operator Relationship Specialty Start Date End Date Renetta Cline DO [address] [place] [address] PCP - General Family Medicine 08/17/21 Juan Miguel Rodriguez MD [address] [place] [place] [address] Cardiology 01/28/25 Team Status: Active Member Role/Relationship [...] BE BASED ON THE PRIMARY CLINICAL RECORDS. [facility] [employer] [facility] provides no warranty or guarantee of the accuracy or completeness of information in this document.
[2025-04-22] MEDS: Aspirin E.C. 81 MG Tablet PO (07:33)
[2025-04-22] MEDS: Metoprolol(XL)Succ 25 MG Tablet PO ×2 (07:33→11:02)
[2025-04-22] MEDS: Nitroglycerin Infusion 250 ML 75 MG CONT INF (08:27)
--- NOTE | 2025-04-22 08:35 | PCM.PN.SRG ---
Subjective Subjective I saw Mr Kirby this morning and again this afternoon. Both times he was resting relatively comfortably in bed. This morning with noticeable tremor which was improved in the afternoon. He has denied any headache, new numbness/paresthesias/vision changes. He has been very hypertensive postoperatively, has had suboptimally controlled BP outpatient as well. Otherwise, tolerating normal diet and with minimal pain. Objective Data Objective Data Vital Signs: Vital Signs Temp Pulse Resp BP Pulse Ox O2 Del Method O2 Flow Rate 98.5 F 97 15 183/85 H 95 Nasal Cannula 2 04/22/25 04:00 04/22/25 08:00 04/22/25 08:00 04/22/25 08:25 04/22/25 08:00 04/22/25 08:00 04/22/25 08:00 FiO2 1 04/22/25 02:00 Oxygen Flow Rate (L/min) 2 Oxygen Delivery Method Nasal Cannula Weight: 212 lb 8.41 oz Body Mass Index (BMI) 31.4 Intake & Output: Intake and Output for Last 24 Hours 04/20/25 04/21/25 04/22/25 23:59 23:59 23:59 Intake Total 455.10 / 464.10 1345.33 / 1345.33 Output Total 1423 / 1423 440 / 440 Balance -967.90 / -958.90 905.33 / 905.33 Lab / Micro Data 04/22/25 04:53 03/25/25 16:22 Labs: Laboratory Results - last 24 hr 04/21/25 14:09: Activated Clotting Time 153 H 04/21/25 15:10: Activated Clotting Time 342 H 04/21/25 15:46: Activated Clotting Time 266 H 04/22/25 04:53: WBC 11.5 H, RBC 3.64 L, Hgb 12.4 L, Hct 35.0 L, MCV 96.2 H, MCH 34.1 H, MCHC 35.4, RDW Std Deviation 44.9 H, RDW Coeff of Nicola 12.6, Plt Count 307, MPV 8.6, Immature Gran % (Auto) 0.700, Neut % (Auto) 80.6 H, Lymph % (Auto) 9.1 L, Roberts % (Auto) 9.1, Eos % (Auto) 0.3, Baso % (Auto) 0.2, Absolute Neuts (auto) 9.3 H, Absolute Lymphs (auto) 1.04, Nucleated RBC % 0 Physical Exam Const alert, oriented x3 and no apparent distress General Appearance: cooperative and comfortable HEENT normocephalic, head/scalp atraumatic, hearing grossly normal bilaterally, external ears normal and external nose normal Eyes General Eye: normal appearance of both eyes Neck Neck Narrative: L neck incision site initially with postoperative dressings C/D/I. Once dressings removed, incision with skin glue intact, no dehiscence, no significant ecchymosis. Mild swelling, soft to palpation. Small amount of serosanguineous output in the CHAR drain. Resp normal respiratory effort, no retractions and no use of accessory muscles Effort and Inspection: able to speak in complete sentences; Negative for labored, grunting or stridor Cardio regular rate and regular rhythm Skin no rashes or lesions noted Trauma: no lacerations or abrasions Neuro CN's II-XII intact bilaterally, moves all extremities and no focal motor deficits Speech: speech normal Psych mental status grossly normal Appearance: grossly normal Attitude: calm and engaged Activity / Motor Behavior: appropriate eye contact Speech: normal speech Mood & Affect: euthymic mood Assessment & Plan Assessment/Plan (1) Left carotid stenosis: PLAN: Plan He is POD#1 from L [facility]. CHAR drain removed today without issue, he tolerated this well. He has been hypertensive requiring nitro drip. Increased his metoprolol to 50mg BID; continue current lisinopril-HCTZ dose. Will monitor for improvement. Added order for PRN labetalol and hydralazine to be available to try to wean off nitro. He is on CIWA protocol. Beer is available and have ordered ativan PRN per protocol. D/c arterial line. D/c cárdenas. OK for normal diet. Continue to wean nitro and monitor BP. Hopeful for d/c tomorrow. Charges/Coding Procedures Integumentary [id number]: [id number] Global Visit
[2025-04-22] MEDS: Nitroglycerin Infusion 250 ML 96 MG CONT INF ×4 (11:02→19:05)
--- NOTE | 2025-04-22 12:58 | CASEMGMT ---
WILFREDO BALLARD Assessment Face to Face with patient for initial transition planning/care coordination assessment. WILFREDO BALLARD introduced self and role at [facility], pt voices understanding. Pt is A&Ox4 and is resting comfortably in bed and is calm. Care providers, pharmacy, and demographics verified. Admitting dx: Left Carotid Endarterectomy LACE Strata:1 PCP: Renetta Botello Specialists: Doni (Vascular), GI in [place] (Pt unable to recall the name) Preferred Pharmacy: [facility] [place] Insurance:[facility] A/B Prescription Benefit: Denies. Pt educated about free services such as Good Rx. CM to follow Rx costs at the time of DC LNOK: Stephanie (SO). Pt states that they do not live together and that she is In worse physical condition than me. Living Arrangements: Pt lives alone in a 2 story home with one step to enter ADLs/IADLs: Pt states that he is indep at baseline. Per ICU rounds, therapy is to be held today Transportation: Self. Pt states that he does not have any other form of transportation at this time and may need help with getting a ride home. CM to follow. SW notified and plans to provide the pt with local (to pt's home) transportation resources DME: Pt denies having any DME at home. Pt is currently requiring additional oxygen and may qualify for home oxygen use. A verbal list of local in-network DME companies were provided to the pt at this time. Pt prefers [facility] HHC/SNF: Denies hx of EtOH: Pt reports that he drinks about 8 beers/ day and smokes about a pack and a half of cigarettes. At this time, the pt denies wanting any cessation resources or SW follow up regarding the matter Pt?s goal: Home Plan: TBD. At this time, the pt states that he plans to return home at the time of DC. Pt denies SNF needs currently. CM to follow therapy evals, Rx costs, transportation, and any DME needs including potential new oxygen. Pt denies further questions or concerns at this time. Lamar Lafleur RN, CM
--- NOTE | 2025-04-22 13:41 | CASEMGMT ---
Social Work Pt brought in Durable POA listing his brother Porfirio as POA. Pt states has medical POA at home, his brother Porfirio is POA and Porfirio's son Fritz is the alternate. He states he brought the wrong envelope to the hospital. SW to add Porfirio to demographics. A copy of the durable POA was placed on the paper chart, though this does not apply to medical POA. LIZZY Lyle
--- NOTE | 2025-04-22 13:42 | CASEMGMT ---
Social Work SW met w/pt, provided transportation and prescription resources to pt for [facility], as pt lives in [place]. Pt does not have prescription benefits, and struggles w/transportation. SW also offered to assist pt w/POA for healthcare, though pt does think he has this document at home. SW will check back w/pt as time allows to see if he would want to complete medical POA while here. Today pt is very shaky and would have difficulty writing at this time. LIZZY Lyle
[2025-04-22] MEDS: TITRATION PARAMETER CHANGE 1 EACH IV (17:08)
[2025-04-22] MEDS: Metoprolol(XL)Succ 50 MG Tablet PO (21:05)
[2025-04-22] MEDS: Nitroglycerin Infusion 250 ML 93 MG CONT INF (21:41)
[2025-04-22] MEDS: 0.9% Saline Lock 10 ML Syringe IV (23:41)
[2025-04-23] VITALS (68 sets, daily range): BP systolic 68–183; BP diastolic 45–127; PULSE 41–105; RESP 11–24; TEMP 35.9–37.3; O2SAT 84–100; BMI 31.4
[2025-04-23] MEDS: Nitroglycerin Infusion 250 ML 99 MG CONT INF (00:20)
[2025-04-23] MEDS: 0.9% Saline Lock 10 ML Syringe IV ×6 (00:44→20:21)
--- NOTE | 2025-04-23 00:48 | NURSING ---
2340- patient CIWA 17, ativan administered per protocol. pt ripping off pulse ox repeatedly, pulse ox left off at this time as pt would not keep it in place
--- NOTE | 2025-04-23 01:08 | CON.PCM.HO_ITS ---
Assessment & Plan Assessment/Plan (1) Alcohol withdrawal: PLAN: Plan The patient is a 79 y/o M w/ PMHx: Obesity, Tobacco use, HTN, HLD, PAD, BL Carotid disease who presents to the [facility] on 04/21/2025 for planned operative intervention per vascular surgery undergoing a left carotid endarterectomy with unfortunately postoperatively worsening alcohol withdrawal despite CIWA usage with increased restlessness, tremors and elevated blood pressure prompting request for hospitalist evaluation. #1. Acute EtOH Withdrawal: Will maintain in the ICU, at this point we will continue vascular surgery initiated Precedex however will IV load with phenobarbital and add the taper in addition to continued CIWA protocol, will obtain magnesium and phosphorus levels, will continue to trend labs with a CBC, CMP in AM, will initiate on multivitamin/thiamine/folic acid, will have as needed gabapentin, Catapres, Bentyl, Vistaril, IV fluids, IV antiemetics, Tylenol as needed for pain. Once appropriate case management assistance for alcohol abuse will be imperative. #2. Carotid disease, PAD: Status post recent left endarterectomy, continued on aspirin, Pletal, Plavix, statin, hypertensive regimen with adjustments and interventions as noted given elevated blood pressures however may be related to #1, recent intervention as noted per vascular surgery, continue care per their discretion. #3. Hypertension, uncontrolled: Patient with uncontrolled hypertension, currently on a nitroglycerin drip per vascular surgery with goal less than 140 given recent endarterectomy, also maintained also on patient antihypertensive regimen, potentially related to alcohol withdrawal, will continue to monitor and if improvement with improvement of withdrawal symptoms then would de-escalate off nitroglycerin drip and alter oral regimen as needed, continue also on as needed IV hydralazine. #4. Hyperlipidemia: Continue patient on statin therapy. #5. Tobacco Abuse: Encouraged cessation, inpatient consultation per RT, NR if desired. #6. Obesity: Weight loss and lifestyle changes encouraged. #7. DVT prophylaxis: Lovenox per surgery discretion. HPI Consult Data Date of Consult: 04/23/25 HPI Narrative Reason for Consultation: EtOH withdrawal treatment/assessment HPI Narrative: The patient is a 79 y/o M w/ PMHx: Obesity, Tobacco use, HTN, HLD, PAD, BL Carotid disease who presents to the [facility] on 04/21/2025 for planned operative intervention per vascular surgery undergoing a left carotid endarterectomy with unfortunately postoperatively worsening alcohol withdrawal despite CIWA usage with increased restlessness, tremors and elevated blood pressure prompting request for hospitalist evaluation. Patiently normally drinks at least 7-10 beers daily with last beer intake prior to his admission for surgical intervention. He was ordered beers upon his admission but has not been drinking those purportedly because he cannot have a cigarette at the same time. Patient maintained in ICU and per discussion with ICU nursing staff started on Precedex drip given ineffectiveness of CIWA IV Ativan. Patient upon evaluation is agitated, not following commands unfortunately secondary to restlessness with currently Precedex being administered. [facility] Medical History Wears glasses Wears dentures Alcohol use High cholesterol Shortness of breath on exertion Leg cramps History of pain when walking History of echocardiogram History of stress test Cardiology follow-up encounter Peripheral arterial disease Smoker Sinus tachycardia Mixed hyperlipidemia LVH (left ventricular hypertrophy) Essential (primary) hypertension Home Medications ?Medication ?Instructions ?Recorded ?Last Taken ?Type aspirin 81 mg tablet 81 mg PO QDAY [facility] 0 02/27/25 04/20/25 History atorvastatin 40 mg tablet (Lipitor) 40 mg PO QHS JACI STEROL 02/27/25 04/20/25 History cilostazol 100 mg tablet 100 mg PO BID PVD 02/27/25 1 06/15/24 History lisinopril 20 2 tab PO QDAY BP 02/27/25 History mg-hydrochlorothiazide 12.5 mg tablet metoprolol succinate 25 mg 25 mg PO BID BP 02/27/25 06:15 History tablet,extended release 24 hr clopidogrel 75 mg tablet (Plavix) 75 mg PO DAILY PVD 9 0 days #90 tabs 03/25/25 04/20/25 Rx Allergy/AdvReac Type Severity Reaction Status Date / Time No Known Allergies Allergy Verified 04/21/25 09:29 unable to obtain (Secondary to severe restlessness, agitation, withdrawal symptoms.) Surgical History History of esophagogastroduodenoscopy (EGD) Hx of colonoscopy Social History household members: none Smoking Status: Heavy Smoker (>10/day) Tobacco: How many years used: 56 alcohol intake: current alcohol intake frequency: 3 or more drinks per day Alcohol type: beer details: 7-8 beers daily substance use type: does not use caffeine: Yes ROS Review of Systems ROS Unobtainable: due to encephalopathy and due to mental condition Physical Exam Narrative Physical Examination: General: Awake, not markedly alert, not answering orientation questions, not following commands, very agitated and restless and active withdrawal. Skin: Normal color, normal turgor, no icterus, no cyanosis except occasional stage ecchymoses, abrasion, recent left enterectomy with incision intact with no drainage. HEENT: AT/NC, EOMI, PERRLA, dry MM, no carotid bruits or JVD noted, see skin. Lungs: Mildly diminished, greater bases, occasional end expiratory wheeze, mild tachypnea, no distress, no rales or rhonchi. Heart: Currently mildly tachycardic with regular rhythm; no gallop, rub audible. Abdomen: Soft, obese, NTTP, mildly hyperactive BS, no obvious distention or tympany, no significantly appreciate HSM however difficult examination as patient very agitated and restless with tense abdomen secondary to attempts to sit up, evident umbilical hernia as well as ventral hernia. Extremities: No cyanosis, no clubbing, no significant distal edema. Neurological: Patient awake, not markedly alert, not oriented as noted, cognitive function not baseline intact; pupils equally reactive to light and accommodation, cranial nerves grossly normal but difficult assessment is not point commands, moving all extremities, no obvious weakness especially given need for several individuals to help mentation patient safety, patient is very restless and agitated, difficult to assess tremors as not following commands currently and limbs being held while Precedex drip is being initiated. Psychiatric: Affect appears restless, agitated, evident withdrawal, no acute evidence of depressive or anxiety feelings specifically but does have underlying mood disorder. Lab / Micro Data 04/22/25 04:53 03/25/25 16:22 Labs: Laboratory Results - last 24 hr 04/22/25 04:53: WBC 11.5 H, RBC 3.64 L, Hgb 12.4 L, Hct 35.0 L, MCV 96.2 H, MCH 34.1 H, MCHC 35.4, RDW Std Deviation 44.9 H, RDW Coeff of Nicola 12.6, Plt Count 307, MPV 8.6, Immature Gran % (Auto) 0.700, Neut % (Auto) 80.6 H, Lymph % (Auto) 9.1 L, Perkins % (Auto) 9.1, Eos % (Auto) 0.3, Baso % (Auto) 0.2, Absolute Neuts (auto) 9.3 H, Absolute Lymphs (auto) 1.04, Nucleated RBC % 0 Charges/Coding Multi Select Codes Visit Charges Office Visit/Consults: [id number] IP Consult L4
--- NOTE | 2025-04-23 01:10 | NURSING ---
Addendum entered by Aniyah Estrada 04/23/25 02:05: 0200- nitro paused d/t hypotension Original Note: 0100- unable to obtain patients blood pressure for nitro titration as patient is agitated and attempting to get out of bed and pulling off medical equipment. Doni notified that patient CIWA > 15, last CIWA @ 0044 was 21, pt had received x2 doses of IV ativan per protocol without improvement. Dr. Marion ordered precedex and a hospitalist consult. Hospitalist, Dr. Keys, notified via text of consult. Dr. Keys called unit and placed orders for PO phenobarb and PRN's for alcohol withdrawal, stated she would come see the patient shortly. 0125- Dr. Keys to bedside to see patient, gave verbal order to this RN to switch PO phenobarb to IV if needed. Decided not to consult ICU at this time. Will continue to monitor 0130- blood pressures still not taking due to patient agitation/ attempts to get out of bed, Ludmila aware 0200- BP reading 70/50 (57), manual pressure taken 92/54, Dulce Hinton STOPPER MAKER HELPER bedside.
[2025-04-23] MEDS: dexMEDEtomidine 400 MCG in 0.9% Normal Saline (100mL Bag) 96 ML 12.1 MCG CONT INF (01:20)
--- NOTE | 2025-04-23 02:08 | NURSING ---
0000- carotid neuro check unable to be completed as patient CIWA 17 and severely agitated.
[2025-04-23] MEDS: 0.9% Normal Saline (500mL Bag) 500 ML 999 ML IV (02:49)
[2025-04-23 03:07] LABS: Hematocrit 26.2 % (40-54); Hemoglobin 8.9 g/dL (13.0-16.5); Immature Granulocytes Count 0.030 X10^3/uL (0.0-0.0); Mean Corp Hgb Conc 34.0 g/dL (32-36); Mean Corpuscular Volume 98.9 fL (80-94); Mean Platelet Vol. 8.8 fl (6.2-12.0); NRBC Flagged by Analyzer 0 % (0-5); Platelet Count 214 K/mm3 (150-450); RBC Distribution Width CV 12.5 % (11.6-14.6); RBC Distribution Width SD 45.5 fl (35.1-43.9); Red Blood Count 2.65 M/mm3 (4.6-6.2); White Blood Count 6.9 K/mm3 (4.4-11.0)
[2025-04-23 03:55] LABS: Magnesium 1.2 mg/dL (1.5-2.2)
[2025-04-23 04:17] LABS: AST(SGOT) 11 U/L (<=37); Alanine Aminotransfer ALT/SGPT < 5 U/L (<=46); Albumin, Serum 2.3 g/dL (3.4-4.8); Alkaline Phosphatase 40 U/L (40-129); Anion Gap 8 (5-15); BUN 4 mg/dL (4-19); BUN/Creat Ratio 11.7 RATIO (10-20); Calcium,Total 5.4 mg/dL (7.6-11.0); Carbon Dioxide 18.8 mmol/L (21.0-32.0); Chloride 114 mmol/L (98-108); Estimated Creatinine Clearance 88.57 ml/min (50-250); Globulin 1.2 g/dL (2.2-4.2); Glucose 92 mg/dL (70-99); Potassium 2.1 mmol/L (3.3-5.1)
[2025-04-23] MEDS: dexMEDEtomidine 400 MCG in 0.9% Normal Saline (100mL Bag) 96 ML 24.1 MCG CONT INF (05:22)
[2025-04-23] MEDS: Potassium Chloride 10mEq/100mL 10 MEQ/100 ML IV.SOLN. 100 MEQ IV BOLUS ×4 (06:52→10:09)
[2025-04-23] MEDS: Calcium Gluconate IV 1 GM in 0.9% Normal Saline (100mL Bag) 100 ML IV ×2 (07:28→08:39)
--- NOTE | 2025-04-23 07:53 | PN.SURG_ITS ---
Subjective Subjective Saw patient this morning, he was sedate. He developed worsening alcohol withdrawal despite CIWA protocol overnight with increasing agitation, restlessness, tremors, and further elevated BPs; hospitalist was consulted to assist with management. Objective Data Objective Data Vital Signs: Vital Signs Temp Pulse Resp BP Pulse Ox O2 Del Method O2 Flow Rate 98.8 F 84 18 121/64 H 99 Nasal Cannula 5 04/23/25 04:00 04/23/25 06:00 04/23/25 06:00 04/23/25 07:45 04/23/25 06:00 04/23/25 06:00 04/23/25 06:00 FiO2 1 04/22/25 02:00 Oxygen Flow Rate (L/min) 5 Oxygen Delivery Method Nasal Cannula Weight: 212 lb 8.41 oz Body Mass Index (BMI) 31.4 Intake & Output: Intake and Output for Last 24 Hours 04/21/25 04/22/25 04/23/25 23:59 23:59 23:59 Intake Total 455.10 / 464.10 3735.68 / 3828.68 573.85 / 573.85 Output Total 1423 / 1423 2800 / 2800 700 / 700 Balance -967.90 / -958.90 935.68 / 1028.68 -126.15 / -126.15 Lab / Micro Data 04/23/25 02:51 04/23/25 02:51 Labs: Laboratory Results - last 24 hr 04/23/25 02:51: WBC 6.9, RBC 2.65 L, Hgb 8.9 L, Hct 26.2 L, MCV 98.9 H, MCH 33.6 H, MCHC 34.0, RDW Std Deviation 45.5 H, RDW Coeff of Nicola 12.5, Plt Count 214, MPV 8.8, Immature Gran % (Auto) 0.400, Neut % (Auto) 73.6 H, Lymph % (Auto) 15.5 L, Wayne % (Auto) 9.5, Eos % (Auto) 0.6, Baso % (Auto) 0.4, Absolute Neuts (auto) 5.1, Absolute Lymphs (auto) 1.07, Nucleated RBC % 0, Sodium 141, Potassium 2.1 L*, Chloride 114 H, Carbon Dioxide 18.8 L, Anion Gap 8, BUN 4, Creatinine 0.35 L , Estim Creat Clear Calc 88.57, Est GFR (MDRD) Non-Af 117, BUN/Creatinine Ratio 11.7, Glucose 92, Calcium 5.4 L*, Phosphorus 1.5 L, Magnesium 1.2 L, Total Bilirubin 0.43, AST 11, ALT < 5, Alkaline Phosphatase 40, Total Protein 3.5 L, A lbumin 2.3 L, Globulin 1.2 L, Albumin/Globulin Ratio 1.9 Physical Exam Const General Appearance: lethargic and other sedated HEENT head/scalp atraumatic, external ears normal and external nose normal Neck Neck Narrative: L neck incision site with skin glue intact, no dehiscence/drainage. Small dressing C/D/I to CHAR drain site, minimal drainage. Stable moderate swelling to the L neck incision site, soft to palpation. Resp normal respiratory effort Cardio regular rate and regular rhythm Skin no rashes or lesions noted Neuro Sensorium / Orientation: lethargic and other sedate Assessment & Plan Assessment/Plan (1) Left carotid stenosis: PLAN: Plan He is POD#2 from L CEA. Incision site satisfactory in appearance with stable postoperative swelling. He developed worsening alcohol withdrawal overnight. Appreciate hospitalist/transportation engineer consultations for assistance with management in this regard. Called patient's girlfriend listed in chart and discussed patient's condition and care to this point.
[2025-04-23] MEDS: Magnesium Sulfate 2 GM in Dextrose 5%-Water (100mL Bag) 100 ML IV (08:49)
[2025-04-23] MEDS: Dexmedetomidine 1,000 mcg in 0.9% NS 240 mL 28.9 MCG CONT INF (08:55)
[2025-04-23] MEDS: Nitroglycerin Infusion 250 ML 30 MG CONT INF (08:57)
--- NOTE | 2025-04-23 09:16 | NURSING ---
Unable to accurately assess cartoid neuro checks d/t mental status/sedation/active DTs. Although, pt is forcefully moving all ext without prompting and tongue appears midline. Unable to solicit normal verbal communication other than moaning and occasional rambling speech.
--- NOTE | 2025-04-23 10:12 | CASEMGMT ---
Social Work- SW participated in interdisciplinary rounds. Pt is on precedex, having withdrawal symptoms, and unable to participate in discussion. SW remains available to follow. KAREN Guerin
[2025-04-23 10:25] LABS: Base Excess 4 mmol/L (-2 to +2); FI02 100.0; PO2 110 mmHG (75-100); SITE R Brach; SO2 97 % (94-98)
[2025-04-23] MEDS: fentaNYL drip 100 ML 5 MCG CONT INF (10:53)
[2025-04-23] MEDS: Sodium Phosphate/Na Biphos 15 MMOL in 0.9% Normal Saline (250mL Bag) 250 ML 125 MMOL IV (11:06)
--- NOTE | 2025-04-23 11:20 | RAD_ITS ---
PROCEDURE: CHEST 1 VIEW (PORTABLE) 04/23/2025 REASON FOR EXAM: ETT/OG PLACEMENT #1 TECHNIQUE: Frontal view of the chest. COMPARISON: None FINDINGS: Hardware: EKG electrodes are seen. The tip of the endotracheal tube is at 5 cm proximal the bridgett. Orogastric tube is seen with the tip in the region of the gastroesophageal junction. Heart: The heart size is normal. Lungs: Increased markings with areas of confluence in the left lower lobe suggestive of left lower lobe infiltrate. Bones: Degenerative changes are identified within the thoracic spine. RAD/Chest 1 View (Portable) IMPRESSION: The tip of the endotracheal tube is at 5 cm proximal the bridgett. The tip of th e orogastric tube is in the region of the gastroesophageal junction. Left basilar infiltrate. Reading Location: [place] [id number]
--- NOTE | 2025-04-23 11:34 | CON.PCM.CC_ITS ---
HPI Consult Data Date of Consult: 04/23/25 HPI Narrative HPI Narrative: LITA MEYER, is a 79 M who presents [ ] [facility] Medical History Wears glasses Wears dentures Alcohol use High cholesterol Shortness of breath on exertion Leg cramps History of pain when walking History of echocardiogram History of stress test Cardiology follow-up encounter Peripheral arterial disease Smoker Sinus tachycardia Mixed hyperlipidemia LVH (left ventricular hypertrophy) Essential (primary) hypertension Home Medications ?Medication ?Instructions ?Recorded ?Last Taken ?Type aspirin 81 mg tablet 81 mg PO QDAY HEART HEALTH 0 02/27/25 04/20/25 History atorvastatin 40 mg tablet (Lipitor) 40 mg PO QHS JACI STEROL 02/27/25 04/20/25 History cilostazol 100 mg tablet 100 mg PO BID PVD 02/27/25 1 06/15/24 History lisinopril 20 2 tab PO QDAY BP 02/27/25 History mg-hydrochlorothiazide 12.5 mg tablet metoprolol succinate 25 mg 25 mg PO BID BP 02/27/25 06:15 History tablet,extended release 24 hr clopidogrel 75 mg tablet (Plavix) 75 mg PO DAILY PVD 9 0 days #90 tabs 03/25/25 04/20/25 Rx Allergy/AdvReac Type Severity Reaction Status Date / Time No Known Allergies Allergy Verified 04/21/25 09:29 Family History unable to obtain Surgical History History of esophagogastroduodenoscopy (EGD) Hx of colonoscopy Social History household members: none Smoking Status: Heavy Smoker (>10/day) Tobacco: How many years used: 56 alcohol intake: current alcohol intake frequency: 3 or more drinks per day Alcohol type: beer details: 7-8 beers daily substance use type: does not use caffeine: Yes Lab / Micro Data 04/23/25 02:51 04/23/25 02:51 Labs: Laboratory Results - last 24 hr 04/23/25 02:51: WBC 6.9, RBC 2.65 L, Hgb 8.9 L, Hct 26.2 L, MCV 98.9 H, MCH 33.6 H, MCHC 34.0, RDW Std Deviation 45.5 H, RDW Coeff of Nicola 12.5, Plt Count 214, MPV 8.8, Immature Gran % (Auto) 0.400, Neut % (Auto) 73.6 H, Lymph % (Auto) 15.5 L, [place] % (Auto) 9.5, Eos % (Auto) 0.6, Baso % (Auto) 0.4, Absolute Neuts (auto) 5.1, Absolute Lymphs (auto) 1.07, Nucleated RBC % 0, Sodium 141, Potassium 2.1 L*, Chloride 114 H, Carbon Dioxide 18.8 L, Anion Gap 8, BUN 4, Creatinine 0.35 L , Estim Creat Clear Calc 88.57, Est GFR (MDRD) Non-Af 117, BUN/Creatinine Ratio 11.7, Glucose 92, Calcium 5.4 L*, Phosphorus 1.5 L, Magnesium 1.2 L, Total Bilirubin 0.43, AST 11, ALT < 5, Alkaline Phosphatase 40, Total Protein 3.5 L, A lbumin 2.3 L, Globulin 1.2 L, Albumin/Globulin Ratio 1.9 ABG Data ABG results: ABG 04/23/25 10:22 Specimen Type ART Sample Site R Brach pH 7.28 L Bicarbonate Actual 30.6 H Total CO2 33 Base Excess 4 H O2 Saturation 97 O2 % 100.0 ABG pCO2 65.0 H ABG pO2 110 H O2 Delivery Device NRB Vent Mode Not entered
--- NOTE | 2025-04-23 11:34 | PRO.PCM_ITS ---
Procedures Hospitalists Procedures: 34520 Insert Emergency Airway Bedside Procedural Bedside Procedure Information Date of Procedure: 04/23/25 Description of procedure: Intubation Indication: Acute Respiratory Failure Consent was obtained from: Performed emergently The patient was placed in the appropriate sniffing position. Preoxygenated sedation via bag valve mask was provided for a minimum of 3 minutes. The patien t had continuous cardiac as well as pulse oximetry monitoring during the procedure. Procedure sedation was provided by the administration of 20 mg of etomidate. Video laryngoscopy was then performed using a number 4 MAC blade, which revealed a grade 2 view. A 7.5 mm endotracheal tube was visualized advancing between the cords to the level of 23 cm at the lip. The stylette was then removed and discarded. Tube placement was confirmed by fogging in the tube along with equal and bilateral breath sounds. Colorimetric change was visualized on the CO2 meter. The cuff was then inflated and the tube secured using a commercially available device. A good pulse oximetry waveform was seen on the monitor throughout the procedure. A portable chest x-ray has been ordered to confirm appropriate placement. The patient tolerated the procedure well.
--- NOTE | 2025-04-23 11:34 | EX.PCM.CONCC ---
Assessment & Plan Assessment/Plan (1) Alcohol withdrawal: (2) Acute respiratory failure with hypoxia and hypercapnia: PLAN: Plan RECOMMENDATIONS: 1. Initiate assist-control mode of mechanical ventilation. Wean FiO2 and PEEP as tolerated. 2. Obtain follow-up chest x-ray and arterial blood gas. 3. Obtain and send sputum for culture. 4. Close monitoring of hemodynamic status and heart rate due to left ventricular hypertrophy and outflow tract obstruction. 5. Continue Precedex and fentanyl for sedation. 6. Continue thiamine and folic acid. 7. Continue appropriate DVT prophylaxis. Initiate appropriate GI prophylaxis. IMPRESSIONS: 1. Acute hypoxemic and hypercapnic respiratory failure Most likely secondary to underlying COPD coupled with inability to compensate for metabolic demands of acute alcohol withdrawal and respiratory depression induced by sedative medication administration. Accordingly, the patient was emergently intubated. The patient will be initiated on assist-control mode of mechanical ventilation with a goal to wean FiO2 and PEEP to maintain saturations at or above 90%. In light of his smoking status, will initiate bronchodilator therapy. Given normal white blood cell count and lack of fever, we will hold off on initiating antimicrobials. Will obtain follow-up chest x-ray and ABG. 2. Acute alcohol withdrawal The patient was ultimately intubated as a consequence of his acute alcohol withdrawal. Plan to continue Precedex and fentanyl for sedation. Recommend continuation of benzodiazepines along with thiamine and folic acid. 3. History of LVH with LVOT Continue supportive care as noted above. Caution needs to be exercised to avoid hypotension as this will increase his left ventricular outflow gradient. If vasopressors are needed, recommend initiation of phenylephrine. 4. History of bilateral carotid artery stenosis status post left carotid endarterectomy Continue routine postoperative care per vascular surgery recommendations. 5. History of chronic tobacco and alcohol dependency Complicates care, management, recovery and prognosis. Continue supportive measures as noted above. TIME: 38 minutes of critical care time, independent of procedures, was spent addressing the patient's acute hypoxemic and hypercapnic respiratory failure, acute alcohol withdrawal, review of all data and collaboration with the care team. HPI Consult Data Date of Consult: 04/23/25 HPI Narrative Reason for Consultation: Respiratory failure, alcohol withdrawal HPI Narrative: The patient is a 79-year-old male, with a history as outlined below, who presented to the hospital on April 21 initially to undergo a left carotid endarterectomy due to a history of severe bilateral carotid artery stenosis. The patient has a known history of significant alcohol dependency and chronic tobacco abuse. His medical history is also significant for left ventricular hypertrophy with a left ventricular outflow tract gradient of 37 mmHg at rest and 71 mm with Valsalva. The patient ultimately underwent a successful left carotid endarterectomy on April 21, which was uncomplicated. Unfortunately, postoperatively, the patient developed significant alcohol withdrawal symptoms. He was seen in consultation overnight by the hospitalist and placed on a phenobarbital taper along with Precedex. I was then consulted to evaluate the patient this morning after he developed worsening in his respiratory status with an arterial blood gas that was notable for a pH of 7.28 with a pCO2 of 65 and pO2 of 110. At the time of my evaluation of the patient, he was noted to be unresponsive with paradoxical breathing. Therefore, the patient was emergently intubated. [facility] Medical History Wears glasses Wears dentures Alcohol use High cholesterol Shortness of breath on exertion Leg cramps History of pain when walking History of echocardiogram History of stress test Cardiology follow-up encounter Peripheral arterial disease Smoker Sinus tachycardia Mixed hyperlipidemia LVH (left ventricular hypertrophy) Essential (primary) hypertension Home Medications ?Medication ?Instructions ?Recorded ?Last Taken ?Type aspirin 81 mg tablet 81 mg PO QDAY HEART HEALTH 02/27/25 04/20/25 History atorvastatin 40 mg tablet (Lipitor) 40 mg PO QHS CHOLESTEROL 02/27/25 04/20/25 History cilostazol 100 mg tablet 100 mg PO BID PVD 02/27/25 04/15/25 History lisinopril 20 2 tab PO QDAY BP 02/27/25 04/20/25 History mg-hydrochlorothiazide 12.5 mg tablet metoprolol succinate 25 mg 25 mg PO BID BP 02/27/25 04/21/25 06:15 History tablet,extended release 24 hr clopidogrel 75 mg tablet (Plavix) 75 mg PO DAILY PVD 90 days #90 tabs 03/25/25 04/20/25 Rx Allergy/AdvReac Type Severity Reaction Status Date / Time No Known Allergies Allergy Verified 04/21/25 09:29 Family History unable to obtain Surgical History History of esophagogastroduodenoscopy (EGD) Hx of colonoscopy Social History household members: none Smoking Status: Heavy Smoker (>10/day) Tobacco: How many years used: 56 alcohol intake: current alcohol intake frequency: 3 or more drinks per day Alcohol type: beer details: 7-8 beers daily substance use type: does not use caffeine: Yes ROS Review of Systems ROS Unobtainable: due to endotracheal tube Physical Exam Const Constitutional Narrative: The patient is now intubated, sedated and mechanically ventilated. HEENT normocephalic and head/scalp atraumatic Mouth: endotracheal tube in place and OG tube in place Eyes PERRL, EOMs intact bilaterally and conjunctivae normal Neck supple General: trachea midline Chest inspection of chest normal Resp Auscultation: rhonchi and diminished lung sounds; Negative for rales or wheezes Cardio regular rate and regular rhythm GI normal to inspection, nondistended, normoactive bowel sounds Extremity no clubbing, cyanosis or edema Skin no rashes or lesions noted Neuro Sensorium / Orientation: sedated on vent Lab / Micro Data 04/23/25 02:51 04/23/25 02:51 Labs: Laboratory Results - last 24 hr 04/23/25 02:51: WBC 6.9, RBC 2.65 L, Hgb 8.9 L, Hct 26.2 L, MCV 98.9 H, MCH 33.6 H, MCHC 34.0, RDW Std Deviation 45.5 H, RDW Coeff of Nicola 12.5, Plt Count 214, MPV 8.8, Immature Gran % (Auto) 0.400, Neut % (Auto) 73.6 H, Lymph % (Auto) 15.5 L, [place] % (Auto) 9.5, Eos % (Auto) 0.6, Baso % (Auto) 0.4, Absolute Neuts (auto) 5.1, Absolute Lymphs (auto) 1.07, Nucleated RBC % 0, Sodium 141, Potassium 2.1 L*, Chloride 114 H, Carbon Dioxide 18.8 L, Anion Gap 8, BUN 4, Creatinine 0.35 L, Estim Creat Clear Calc 88.57, Est GFR (MDRD) Non-Af 117, BUN/Creatinine Ratio 11.7, Glucose 92, Calcium 5.4 L*, Phosphorus 1.5 L, Magnesium 1.2 L, Total Bilirubin 0.43, AST 11, ALT < 5, Alkaline Phosphatase 40, Total Protein 3.5 L, Albumin 2.3 L, Globulin 1.2 L, Albumin/Globulin Ratio 1.9 ABG Data ABG results: ABG 04/23/25 10:22 Specimen Type ART Sample Site R Brach pH 7.28 L Bicarbonate Actual 30.6 H Total CO2 33 Base Excess 4 H O2 Saturation 97 O2 % 100.0 ABG pCO2 65.0 H ABG pO2 110 H O2 Delivery Device NRB Vent Mode Not entered Charges/Coding Procedures Hospitalists Procedures: 35648 Critical Care 1st Hr
--- NOTE | 2025-04-23 11:35 | RAD_ITS ---
PROCEDURE: CHEST 1 VIEW (PORTABLE) 04/23/2025 REASON FOR EXAM: OG ADJUSTMENT #2 TECHNIQUE: Frontal view of the chest. COMPARISON: April 23, 2025 FINDINGS: Hardware: Endotracheal tube is in place approximately 5 cm above the bridgett. No change. Nasogastric tube follows the course of the esophagus. The tip is at the GE junction. This is not crossed into the stomach. Heart: Heart size is mildly enlarged. Lungs: Subsegmental atelectasis or airspace disease left lower lobe. Right lung is clear. Bones: Degenerative changes are identified within the thoracic spine. RAD/Chest 1 View (Portable) IMPRESSION: 1. Endotracheal tube unchanged. 2. Minimal advancement of the nasogastric tube. Tip is at the GE junction. C onsider advancing 8-10 cm. Reading Location: [id number]
--- NOTE | 2025-04-23 11:36 | RAD_ITS ---
PROCEDURE: CHEST 1 VIEW (PORTABLE) 04/23/2025 REASON FOR EXAM: OG ADJUSTMENT #3 TECHNIQUE: Frontal view of the chest. COMPARISON: Prior study done earlier in the day. FINDINGS: Hardware: The tip of the endotracheal tube is at 6.4 cm proximal to the bridgett. The tip of the nasogastric tube is in the region of the gastroesophageal junction. Stable left lower lobe infiltrate. Heart: Cardiac and mediastinal contours are stable. Lungs: Stable left lower lobe infiltrate. Bones: Degenerative changes are identified within the thoracic spine. RAD/Chest 1 View (Portable) IMPRESSION: The tip of the endotracheal tube is at 6.4 cm proximal with the bridgett. The ti p of the orogastric tube is at the gastroesophageal junction. [facility]
--- NOTE | 2025-04-23 11:36 | RAD_ITS ---
PROCEDURE: CHEST 1 VIEW (PORTABLE) 04/23/2025 REASON FOR EXAM: OG ADJUSTMENT #4 TECHNIQUE: Frontal view of the chest. COMPARISON: Prior study done earlier in the day. FINDINGS: Hardware: The tip of the endotracheal tube is at 5.5 cm proximal the bridgett. The tip of the orogastric tube is just past the gastroesophageal junction. Heart: Cardiac and mediastinal contours are stable. Lungs: Stable left lower lobe infiltrate. Bones: Degenerative changes are identified within the thoracic spine. RAD/Chest 1 View (Portable) IMPRESSION: The tip of the endotracheal tube is at 5.5 cm proximal the bridgett. The tip of the orogastric tube is just past the gastroesophageal junction. Reading Location: [facility]
[2025-04-23] MEDS: Aspirin E.C. 81 MG Tablet PO (11:44)
[2025-04-23] MEDS: Propofol 10MG/Ml 1,000 MG/100 ML Bottle 5.8 MG CONT INF (12:28)
[2025-04-23 12:34] LABS: Base Excess 6 mmol/L (-2 to +2); FI02 100.0; PEEP 5; PO2 114 mmHG (75-100); RR 14; SITE R Brach; SO2 99 % (94-98)
[2025-04-23 14:16] LABS: CPK Total, Creatine Kinase 109 U/L (24-195); Triglycerides 45 mg/dL
[2025-04-23] MEDS: fentaNYL drip 100 ML 12.5 MCG CONT INF ×2 (15:41→23:53)
[2025-04-23] MEDS: Phenylephrine 10 MG in 0.9% Normal Saline (250mL Bag) 249 ML 15 MG CONT INF (16:38)
--- NOTE | 2025-04-23 16:41 | PCM.PROGNOTE ---
Subjective Subjective Patient seen and examined. His nurse was by his bedside. Hospitalist service was consulted after patient had carotid endarterectomy. Consult was on account of concern for DTs. Patient was quite agitated this morning and restless. Unable to do review of systems as he was not really answering questions. He was on oxygen by Venturi mask but he was not saturating well so ABG was done which showed mild respiratory acidosis with pCO2 elevated. He was therefore put on BiPAP and pulmonology consulted. Objective Data Objective Data Vital Signs: Vital Signs Temp Pulse Resp BP Pulse Ox O2 Del Method O2 Flow Rate 96.6 F L 56 L 15 111/55 L 97 Mechanical Ventilator 3 04/23/25 13:00 04/23/25 16:19 04/23/25 16:19 04/23/25 16:00 04/23/25 16:19 04/23/25 16:00 04/23/25 09:37 FiO2 40 04/23/25 16:19 Oxygen Flow Rate (L/min) 3 Oxygen Delivery Method Mechanical Ventilator Weight: 212 lb 8.41 oz Body Mass Index (BMI) 31.4 Intake & Output: Intake and Output for Last 24 Hours 04/21/25 04/22/25 04/23/25 23:59 23:59 23:59 Intake Total 455.10 / 464.10 3735.68 / 3828.68 2324.70 / 2324.70 Output Total 1423 / 1423 2800 / 2800 1200 / 1200 Balance -967.90 / -958.90 935.68 / 1028.68 1124.70 / 1124.70 Lab / Micro Data 04/23/25 02:51 04/23/25 02:51 Labs: Laboratory Results - last 24 hr 04/23/25 02:51: WBC 6.9, RBC 2.65 L, Hgb 8.9 L, Hct 26.2 L, MCV 98.9 H, MCH 33.6 H, MCHC 34.0, RDW Std Deviation 45.5 H, RDW Coeff of Nicola 12.5, Plt Count 214, MPV 8.8, Immature Gran % (Auto) 0.400, Neut % (Auto) 73.6 H, Lymph % (Auto) 15.5 L, [place] % (Auto) 9.5, Eos % (Auto) 0.6, Baso % (Auto) 0.4, Absolute Neuts (auto) 5.1, Absolute Lymphs (auto) 1.07, Nucleated RBC % 0, Sodium 141, Potassium 2.1 L*, Chloride 114 H, Carbon Dioxide 18.8 L, Anion Gap 8, BUN 4, Creatinine 0.35 L, Estim Creat Clear Calc 88.57, Est GFR (MDRD) Non-Af 117, BUN/Creatinine Ratio 11.7, Glucose 92, Calcium 5.4 L*, Phosphorus 1.5 L, Magnesium 1.2 L, Total Bilirubin 0.43, AST 11, ALT < 5, Alkaline Phosphatase 40, Total Creatine Kinase 109, Total Protein 3.5 L, Albumin 2.3 L, Globulin 1.2 L, Albumin/Globulin Ratio 1.9, Triglycerides 45 ABG Data ABG results: ABG 04/23/25 04/23/25 10:22 12:31 Specimen Type ART ART Sample Site R Brach R Brach pH 7.28 L 7.43 Bicarbonate Actual 30.6 H 30.6 H Total CO2 33 32 Base Excess 4 H 6 H O2 Saturation 97 99 H O2 % 100.0 100.0 ABG pCO2 65.0 H 45.8 H ABG pO2 110 H 114 H Respiration Rate 14 O2 Delivery Device NRB Adult Vent Vent Mode Not entered AC Tidal Volume 450.0 POC PEEP 5 Radiography Diagnostic Testing: Radiology Impression Chest X-Ray 04/23/25 11:20 IMPRESSION: The tip of the endotracheal tube is at 5 cm proximal the bridgett. The tip of the orogastric tube is in the region of the gastroesophageal junction. Left basilar infiltrate. Reading Location: [facility] Chest X-Ray 04/23/25 11:35 IMPRESSION: 1. Endotracheal tube unchanged. 2. Minimal advancement of the nasogastric tube. Tip is at the GE junction. Consider advancing 8-10 cm. Reading Location: [id number] Chest X-Ray 04/23/25 11:36 IMPRESSION: The tip of the endotracheal tube is at 6.4 cm proximal with the bridgett. The tip of the orogastric tube is at the gastroesophageal junction. Reading Location: [facility] Chest X-Ray 04/23/25 11:36 IMPRESSION: The tip of the endotracheal tube is at 5.5 cm proximal the bridgett. The tip of the orogastric tube is just past the gastroesophageal junction. Reading Location: [facility] Physical Exam Const Constitutional Narrative: confused, restless Orientation / Consciousness: lethargic HEENT normocephalic, head/scalp atraumatic, moist oral mucous membranes and oropharynx normal Eyes EOMs intact bilaterally Neck supple Lymph Lymphatic: no lymphedema noted Resp Resp Narrative: Moderately diminished breath sounds bibasilarly. Bibasilar crackles. on oxygen by nasal canula at time of review, but had to be put on BIPAP and now intubated Cardio S1 normal heart sound, S2 normal heart sound and no murmurs Cardio Narrative: bradycardic GI normal to inspection, nondistended, normoactive bowel sounds and soft to palpation Extremity normal capillary refill, no clubbing, cyanosis or edema and no calf tenderness General Extremity: no tenderness to palpation of joints or extremities Skin General Skin Exam: no breakdown Neuro Neuro Narrative: restless, lethargic, moves all extremities spontaneously Psych Attitude: agitated Activity / Motor Behavior: restless Assessment & Plan Assessment/Plan (1) Acute respiratory failure with hypoxia and hypercapnia: (2) Alcohol withdrawal: (3) Left carotid stenosis: (4) Delirium tremens: PLAN: Plan #Acute hypoxic and hypercapnic respiratory failure likely due to underlying COPD and respiratory depression from sedative meds as well as effect of DTs. Patient was on oxygen by Venturi mask this morning but he had poor saturations so he was placed on BiPAP after ABG showed pH of 7.25 with elevated pCO2. Critical care was then consulted. Patient was intubated as he was not tolerating the BiPAP. Management as per critical care. On breathing treatments bronchodilators. Antibiotics not initiated as he does not have a fever and does not have elevated white cell count. On Precedex and fentanyl. #Carotid stenosis: S/p left carotid endarterectomy. Management as per primary service vascular surgery. On aspirin and cilostazol as well as Plavix #History of chronic alcohol use disorder with acute alcohol withdrawal and DTs On alcohol withdrawal protocol phenobarbital. On thiamine, folic acid and Multi-Lavon. Adjunctive meds for symptomatic relief. #History of left ventricular outflow obstruction: Will need to monitor closely to avoid hypotension. Will benefit from phenylephrine if vasopressors are needed in light of the left ventricular outflow obstruction. # DVT prophylaxis: Lovenox Charges/Coding Visit Charges Inpatient E&M: 47035 Subs Hosp L3
[2025-04-23] MEDS: Chlorhexidine 15 ML PO (20:29)
[2025-04-23] MEDS: Phenylephrine 10 MG in 0.9% Normal Saline (250mL Bag) 249 ML 45 MG CONT INF (22:57)
[2025-04-24] VITALS (48 sets, daily range): BP systolic 83–188; BP diastolic 42–73; PULSE 50–129; RESP 11–22; TEMP 37.1–38.5; O2SAT 93–99; BMI 31.3
--- NOTE | 2025-04-24 00:14 | PCM.HOSP.N ---
Hospitalist Note Patient with decreased UOP. Will administer 500 cc IV bolus and transition to judicious IVF maintenance following.
[2025-04-24 01:06] LABS: Anion Gap 12 (5-15); BUN 12 mg/dL (4-19); BUN/Creat Ratio 14.4 RATIO (10-20); Calcium,Total 8.6 mg/dL (7.6-11.0); Carbon Dioxide 24.8 mmol/L (21.0-32.0); Chloride 95 mmol/L (98-108); Estimated Creatinine Clearance 84.35 ml/min (50-250); Glucose 98 mg/dL (70-99); Potassium 3.6 mmol/L (3.3-5.1)
[2025-04-24] MEDS: 0.9% Normal Saline (1000mL) 1,000 ML 100 ML IV (01:19)
[2025-04-24] MEDS: 0.9% Normal Saline (500mL Bag) 500 ML 999 ML IV (01:19)
[2025-04-24] MEDS: 0.9% Saline Lock 10 ML Syringe IV ×2 (01:19→04:55)
[2025-04-24] MEDS: CHLORHEXIDINE GLUC 2% CLOTH 1 EACH TOWELETTE TOPICAL (01:19)
[2025-04-24 03:45] LABS: Hematocrit 35.7 % (40-54); Hemoglobin 12.2 g/dL (13.0-16.5); Immature Granulocytes Count 0.060 X10^3/uL (0.0-0.0); Mean Corp Hgb Conc 34.2 g/dL (32-36); Mean Corpuscular Volume 99.2 fL (80-94); Mean Platelet Vol. 8.9 fl (6.2-12.0); NRBC Flagged by Analyzer 0 % (0-5); Platelet Count 331 K/mm3 (150-450); RBC Distribution Width CV 12.7 % (11.6-14.6); RBC Distribution Width SD 46.3 fl (35.1-43.9); Red Blood Count 3.60 M/mm3 (4.6-6.2); White Blood Count 10.7 K/mm3 (4.4-11.0)
[2025-04-24 04:09] LABS: Magnesium 1.9 mg/dL (1.5-2.2)
[2025-04-24 04:10] LABS: AST(SGOT) 19 U/L (<=37); Alanine Aminotransfer ALT/SGPT 10 U/L (<=46); Albumin, Serum 3.5 g/dL (3.4-4.8); Alkaline Phosphatase 72 U/L (40-129); Anion Gap 12 (5-15); BUN 12 mg/dL (4-19); BUN/Creat Ratio 15.7 RATIO (10-20); Calcium,Total 8.6 mg/dL (7.6-11.0); Carbon Dioxide 24.2 mmol/L (21.0-32.0); Chloride 96 mmol/L (98-108); Estimated Creatinine Clearance 88.35 ml/min (50-250); Globulin 2.5 g/dL (2.2-4.2); Glucose 97 mg/dL (70-99); Potassium 3.7 mmol/L (3.3-5.1)
[2025-04-24] MEDS: Phenylephrine 10 MG in 0.9% Normal Saline (250mL Bag) 249 ML 15 MG CONT INF (04:55)
--- NOTE | 2025-04-24 07:26 | PCM.PN.INT ---
Assessment & Plan Assessment/Plan (1) Alcohol withdrawal: (2) Acute respiratory failure with hypoxia and hypercapnia: PLAN: Plan RECOMMENDATIONS: 1. Continue pressure support throughout the day as tolerated. Transition back to assist-control mode overnight support. 2. No plans for extubation until the patient is outside of the window for alcohol withdrawal. 3. Continue phenobarbital along with benzodiazepines for symptom management of alcohol withdrawal. Continue thiamine and folic acid. 4. Obtain follow-up ABG and chest x-ray. 5. Administer beta-asael to control heart rate. 6. Continue appropriate GI and DVT prophylaxis. 7. Okay to initiate tube feeding today for nutritional support. 8. Monitor electrolytes closely, as the patient will be at high risk for refeeding syndrome. IMPRESSIONS: 1. Acute hypoxemic and hypercapnic respiratory failure Most likely secondary to underlying COPD coupled with inability to compensate for metabolic demands of acute alcohol withdrawal and respiratory depression induced by sedative medication administration. Accordingly, the patient was emergently intubated on April 23. The patient will be continued on assist-control mode of mechanical ventilation, with a goal to wean FiO2 and PEEP as tolerated. There are no plans for extubation until the patient is outside of his window for alcohol withdrawal. He will be maintained on Precedex as needed along with phenobarbital and benzodiazepines. Given the lack of infiltrate or consolidation noted on chest imaging, we will hold off on initiating antimicrobials. 2. Acute alcohol withdrawal The patient was ultimately intubated as a consequence of his acute alcohol withdrawal. Plan to continue Precedex and fentanyl for sedation. Recommend continuation of benzodiazepines along with thiamine and folic acid. 3. History of LVH with LVOT Continue supportive care as noted above. Caution needs to be exercised to avoid hypotension as this will increase his left ventricular outflow gradient. If vasopressors are needed, recommend initiation of phenylephrine. Recommend continuation of beta-asael for heart rate control. 4. History of bilateral carotid artery stenosis status post left carotid endarterectomy Continue routine postoperative care per vascular surgery recommendations. 5. History of chronic tobacco and alcohol dependency Complicates care, management, recovery and prognosis. Continue supportive measures as noted above. Okay to initiate tube feeding today for nutritional support. Monitor electrolytes closely for evidence of refeeding syndrome. TIME: 35 minutes of critical care time, independent of procedures, was spent addressing the patient's acute hypoxemic and hypercapnic respiratory failure, acute alcohol withdrawal, review of all data and collaboration with the care team. Subjective Subjective The patient was seen and examined at the bedside this morning. Events from the last 24 hours have been reviewed. The patient is currently afebrile, hemodynamically stable and maintaining appropriate oxygen saturations on assist-control mode of mechanical ventilation with an FiO2 requirement of 30%. The patient was actually doing so well this morning that he was able to be placed on a spontaneous breathing trial, which she has tolerated. He is currently documented to be overall net +2 L for the hospitalization. White blood cell count is normal. Hemoglobin and platelet count are stable. Creatinine is within normal limits. Objective Data Objective Data The patient's most recent lab work, culture data and imaging studies have all been personally reviewed. Sputum culture is pending. Vital Signs: Vital Signs Temp Pulse Resp BP Pulse Ox O2 Del Method O2 Flow Rate 98.8 F 96 14 138/57 H 97 Mechanical Ventilator 40 04/24/25 04:15 04/24/25 07:00 04/24/25 07:00 04/24/25 07:15 04/24/25 07:00 04/24/25 07:00 04/23/25 18:00 FiO2 30 04/24/25 07:00 Oxygen Flow Rate (L/min) 40 Oxygen Delivery Method Mechanical Ventilator Weight: 211 lb 6.773 oz Body Mass Index (BMI) 31.3 Intake & Output: Intake and Output for Last 24 Hours 04/22/25 04/23/25 04/24/25 23:59 23:59 23:59 Intake Total 3735.68 / 3828.68 2676.95 / 2723.41 1108.96 / 1108.96 Output Total 2800 / 2800 1375 / 1375 150 / 150 Balance 935.68 / 1028.68 1301.95 / 1348.41 958.96 / 958.96 Lab / Micro Data Attestation: I reviewed the patient's lab results. 04/24/25 03:35 04/24/25 03:35 Labs: Laboratory Results - last 24 hr 04/23/25 02:51: Total Creatine Kinase 109, Triglycerides 45 04/24/25 00:25: Sodium 131 L, Potassium 3.6, Chloride 95 L, Carbon Dioxide 24.8, Anion Gap 12, BUN 12, Creatinine 0.84, Estim Creat Clear Calc 84.35, Est GFR (MDRD) Non-Af 90, BUN/Creatinine Ratio 14.4, Glucose 98, Calcium 8.6 04/24/25 03:35: WBC 10.7, RBC 3.60 L, Hgb 12.2 L, Hct 35.7 L, MCV 99.2 H, MCH 33.9 H, MCHC 34.2, RDW Std Deviation 46.3 H, RDW Coeff of Nicola 12.7, Plt Count 331, MPV 8.9, Immature Gran % (Auto) 0.600, Neut % (Auto) 70.6 H, Lymph % (Auto) 15.7 L, [place] % (Auto) 11.3 H, Eos % (Auto) 1.2, Baso % (Auto) 0.6, Absolute Neuts (auto) 7.5, Absolute Lymphs (auto) 1.67, Nucleated RBC % 0, Sodium 132 L, Potassium 3.7, Chloride 96 L, Carbon Dioxide 24.2, Anion Gap 12, BUN 12, Creatinine 0.76, Estim Creat Clear Calc 88.35, Est GFR (MDRD) Non-Af 92, BUN/Creatinine Ratio 15.7, Glucose 97, Calcium 8.6, Phosphorus 4.5, Magnesium 1.9, Total Bilirubin 0.59, AST 19, ALT 10, Alkaline Phosphatase 72, Total Protein 6.0, Albumin 3.5, Globulin 2.5, Albumin/Globulin Ratio 1.4 ABG Data ABG results: ABG 04/23/25 04/23/25 10:22 12:31 Specimen Type ART ART Sample Site R Brach R Brach pH 7.28 L 7.43 Bicarbonate Actual 30.6 H 30.6 H Total CO2 33 32 Base Excess 4 H 6 H O2 Saturation 97 99 H O2 % 100.0 100.0 ABG pCO2 65.0 H 45.8 H ABG pO2 110 H 114 H Respiration Rate 14 O2 Delivery Device NRB Adult Vent Vent Mode Not entered AC Tidal Volume 450.0 POC PEEP 5 Radiography Diagnostic Testing: Radiology Impression Chest X-Ray 04/23/25 11:20 IMPRESSION: The tip of the endotracheal tube is at 5 cm proximal the bridgett. The tip of the orogastric tube is in the region of the gastroesophageal junction. Left basilar infiltrate. Reading Location: [facility] Chest X-Ray 04/23/25 11:35 IMPRESSION: 1. Endotracheal tube unchanged. 2. Minimal advancement of the nasogastric tube. Tip is at the GE junction. Consider advancing 8-10 cm. Reading Location: [id number] Chest X-Ray 04/23/25 11:36 IMPRESSION: The tip of the endotracheal tube is at 6.4 cm proximal with the bridgett. The tip of the orogastric tube is at the gastroesophageal junction. Reading Location: [facility] Chest X-Ray 04/23/25 11:36 IMPRESSION: The tip of the endotracheal tube is at 5.5 cm proximal the bridgett. The tip of the orogastric tube is just past the gastroesophageal junction. Reading Location: [facility]- Physical Exam Const Constitutional Narrative: Intubated and mechanically ventilated. Currently tolerating spontaneous mode of mechanical ventilation. HEENT normocephalic and head/scalp atraumatic Mouth: endotracheal tube in place and OG tube in place Eyes PERRL, EOMs intact bilaterally and conjunctivae normal Neck supple General: trachea midline Chest inspection of chest normal Resp Auscultation: diminished lung sounds; Negative for rales, rhonchi or wheezes Cardio S1 normal heart sound and S2 normal heart sound Rate: tachycardic GI normal to inspection, nondistended, normoactive bowel sounds Extremity no clubbing, cyanosis or edema Skin no rashes or lesions noted Neuro Sensorium / Orientation: sedated on vent Charges/Coding Procedures Hospitalists Procedures: 30503 Critical Care 1st Hr
--- NOTE | 2025-04-24 08:28 | RAD_ITS ---
PROCEDURE: CHEST 1 VIEW (PORTABLE) 04/24/2025 REASON FOR EXAM: RESPIRATORY FAILURE TECHNIQUE: Frontal view of the chest. COMPARISON: April 23, 2025. FINDINGS: Hardware: An endotracheal tube is in-situ with the tip at 3.7 cm proximal the bridgett. An orogastric tube is seen with the tip in the body of the stomach. EKG electrodes are seen. Heart: Mild cardiomegaly. Lungs: Persistent left lower lobe atelectasis and/or infiltrate with blunting of the left costophrenic angle. This has improved. Bones: Degenerative changes are identified within the thoracic spine. RAD/Chest 1 View (Portable) IMPRESSION: The support tubes are in good position. Improved aeration of the left lung base. Reading Location: [facility]-
[2025-04-24 08:34] LABS: Allen Test Positive; Base Excess 2 mmol/L (-2 to +2); FI02 30.0; PEEP 5; PO2 56 mmHG (75-100); RR 14; SITE R Radial; SO2 90 % (94-98)
[2025-04-24] MEDS: Metoprolol(XL)Succ 50 MG Tablet PO ×2 (08:35→21:07)
--- NOTE | 2025-04-24 08:38 | PCM.PN.SRG ---
Subjective Subjective I saw patient this morning at bedside. He was intubated but awoke to his name and following commands, interactive. His BPs have been better controlled and he is not on any vasopressor or nitro drips, HR elevated this morning but had not yet received his metoprolol. Objective Data Objective Data Vital Signs: Vital Signs Temp Pulse Resp BP Pulse Ox O2 Del Method O2 Flow Rate 98.8 F 115 H 14 146/54 H 97 Mechanical Ventilator 40 04/24/25 04:15 04/24/25 08:35 04/24/25 07:00 04/24/25 08:35 04/24/25 07:00 04/24/25 07:00 04/23/25 18:00 FiO2 30 04/24/25 07:00 Oxygen Flow Rate (L/min) 40 Oxygen Delivery Method Mechanical Ventilator Weight: 211 lb 6.773 oz Body Mass Index (BMI) 31.3 Intake & Output: Intake and Output for Last 24 Hours 04/22/25 04/23/25 04/24/25 23:59 23:59 23:59 Intake Total 3735.68 / 3828.68 2676.95 / 2723.41 1108.96 / 1108.96 Output Total 2800 / 2800 1375 / 1375 150 / 150 Balance 935.68 / 1028.68 1301.95 / 1348.41 958.96 / 958.96 Lab / Micro Data 04/24/25 03:35 04/24/25 03:35 Labs: Laboratory Results - last 24 hr 04/23/25 02:51: Total Creatine Kinase 109, Triglycerides 45 04/24/25 00:25: Sodium 131 L, Potassium 3.6, Chloride 95 L, Carbon Dioxide 24.8, Anion Gap 12, BUN 12, Creatinine 0.84, Estim Creat Clear Calc 84.35, Est GFR (MDRD) Non-Af 90, BUN/Creatinine Ratio 14.4, Glucose 98, Calcium 8.6 04/24/25 03:35: WBC 10.7, RBC 3.60 L, Hgb 12.2 L, Hct 35.7 L, MCV 99.2 H, MCH 33.9 H, MCHC 34.2, RDW Std Deviation 46.3 H, RDW Coeff of Nicola 12.7, Plt Count 331, MPV 8.9, Immature Gran % (Auto) 0.600, Neut % (Auto) 70.6 H, Lymph % (Auto) 15.7 L, [place] % (Auto) 11.3 H, Eos % (Auto) 1.2, Baso % (Auto) 0.6, Absolute Neuts (auto) 7.5, Absolute Lymphs (auto) 1.67, Nucleated RBC % 0, Sodium 132 L, Potassium 3.7, Chloride 96 L, Carbon Dioxide 24.2, Anion Gap 12, BUN 12, Creatinine 0.76, Estim Creat Clear Calc 88.35, Est GFR (MDRD) Non-Af 92, BUN/Creatinine Ratio 15.7, Glucose 97, Calcium 8.6, Phosphorus 4.5, Magnesium 1.9, Total Bilirubin 0.59, AST 19, ALT 10, Alkaline Phosphatase 72, Total Protein 6.0, Albumin 3.5, Globulin 2.5, Albumin/Globulin Ratio 1.4 ABG Data ABG results: ABG 04/23/25 04/23/25 04/24/25 10:22 12:31 08:30 Specimen Type ART ART ART Sample Site R Brach R Brach R Radial pH 7.28 L 7.43 7.44 Bicarbonate Actual 30.6 H 30.6 H 26.4 H Total CO2 33 32 28 Base Excess 4 H 6 H 2 O2 Saturation 97 99 H 90 L O2 % 100.0 100.0 30.0 ABG pCO2 65.0 H 45.8 H 39.1 ABG pO2 110 H 114 H 56 L Herson Test Positive Respiration Rate 14 14 O2 Delivery Device NRB Adult Vent ET Tube Vent Mode Not entered AC AC Tidal Volume 450.0 450.0 POC PEEP 5 5 Radiography Diagnostic Testing: Radiology Impression Chest X-Ray 04/23/25 11:20 IMPRESSION: The tip of the endotracheal tube is at 5 cm proximal the bridgett. The tip of the orogastric tube is in the region of the gastroesophageal junction. Left basilar infiltrate. Reading Location: [facility] Chest X-Ray 04/23/25 11:35 IMPRESSION: 1. Endotracheal tube unchanged. 2. Minimal advancement of the nasogastric tube. Tip is at the GE junction. Consider advancing 8-10 cm. Reading Location: [id number] Chest X-Ray 04/23/25 11:36 IMPRESSION: The tip of the endotracheal tube is at 6.4 cm proximal with the bridgett. The tip of the orogastric tube is at the gastroesophageal junction. Reading Location: [facility] Chest X-Ray 04/23/25 11:36 IMPRESSION: The tip of the endotracheal tube is at 5.5 cm proximal the bridgett. The tip of the orogastric tube is just past the gastroesophageal junction. Reading Location: [facility] Physical Exam Const Constitutional Narrative: intubated, but more alert and able to follow commands HEENT head/scalp atraumatic, external ears normal and external nose normal Neck Neck Narrative: L neck incision site with skin glue intact, no dehiscence/drainage. Small dressing C/D/I to CHAR drain site, minimal drainage. Stable moderate swelling to the L neck incision site, soft to palpation. Resp normal respiratory effort Cardio regular rate and regular rhythm Skin no rashes or lesions noted Neuro moves all extremities Neuro Narrative: Patient awoke to his name, following commands, able to move all extremities, good equal strength bilaterally, no noted facial droop Sensorium / Orientation: other sedate Assessment & Plan Assessment/Plan (1) Left carotid stenosis: PLAN: Plan He is POD#3 from L CEA. Incision site satisfactory in appearance with stable postoperative swelling. He remains intubated, but is alert and following commands today. Neuro exam intact. Charges/Coding Procedures Integumentary [id number]: [id number] Global Visit
--- NOTE | 2025-04-24 10:15 | CASEMGMT ---
Social Work- provided printables for [employer] and [facility] pt D assistance, as pt currently does not have prescription coverage. RNCM to follow. KAREN Guerin
[2025-04-24] MEDS: Thiamine Hydrochloride 100 MG Tablet PO (10:38)
[2025-04-24] MEDS: Aspirin E.C. 81 MG Tablet PO (10:38)
[2025-04-24] MEDS: Pantoprazole Sodium 40 MG in 0.9% Normal Saline (100mL MB+) 100 ML 300 MG IV (10:39)
[2025-04-24] MEDS: Chlorhexidine 15 ML PO ×2 (11:34→21:08)
[2025-04-24] MEDS: Propofol 10MG/Ml 1,000 MG/100 ML Bottle 5.8 MG CONT INF (13:12)
[2025-04-24] MEDS: Vital High Protein 1,000 ML 10 ML GT (13:23)
--- NOTE | 2025-04-24 13:25 | PN_ITS ---
Subjective Subjective Patient seen and examined. Patient remains intubated and sedated. Unable to do review of systems. Objective Data Objective Data Vital Signs: Vital Signs Temp Pulse Resp BP Pulse Ox O2 Del Method O2 Flow Rate 99.7 F H 97 19 H 156/56 H 97 Mechanical Ventilator 40 04/24/25 09:00 04/24/25 12:24 04/24/25 12:24 04/24/25 12:24 04/24/25 12:24 04/24/25 12:24 04/23/25 18:00 FiO2 40 04/24/25 12:24 Oxygen Flow Rate (L/min) 40 Oxygen Delivery Method Mechanical Ventilator Weight: 211 lb 6.773 oz Body Mass Index (BMI) 31.3 Intake & Output: Intake and Output for Last 24 Hours 04/22/25 04/23/25 04/24/25 23:59 23:59 23:59 Intake Total 3735.68 / 3828.68 2676.95 / 2723.41 1238.96 / 1238.96 Output Total 2800 / 2800 1375 / 1375 400 / 400 Balance 935.68 / 1028.68 1301.95 / 1348.41 838.96 / 838.96 Lab / Micro Data 04/24/25 03:35 04/24/25 03:35 Labs: Laboratory Results - last 24 hr 04/23/25 02:51: Total Creatine Kinase 109, Triglycerides 45 04/24/25 00:25: Sodium 131 L, Potassium 3.6, Chloride 95 L, Carbon Dioxide 24.8, Anion Gap 12, BUN 12, Creatinine 0.84, Estim Creat Clear Calc 84.35, Est GFR (MDRD) Non-Af 90, BUN/Creatinine Ratio 14.4, Glucose 98, Calcium 8.6 04/24/25 03:35: WBC 10.7, RBC 3.60 L, Hgb 12.2 L, Hct 35.7 L, MCV 99.2 H, MCH 33.9 H, MCHC 34.2, RDW Std Deviation 46.3 H, RDW Coeff of Nicola 12.7, Plt Count 331, MPV 8.9, Immature Gran % (Auto) 0.600, Neut % (Auto) 70.6 H, Lymph % (Auto) 15.7 L, [place] % (Auto) 11.3 H, Eos % (Auto) 1.2, Baso % (Auto) 0.6, Absolute Neuts (auto) 7.5, Absolute Lymphs (auto) 1.67, Nucleated RBC % 0, Sodium 132 L, Potassium 3.7, Chloride 96 L, Carbon Dioxide 24.2, Anion Gap 12, BUN 12, Creatinine 0.76, Estim Creat Clear Calc 88.35, Est GFR (MDRD) Non-Af 92, BUN/Creatinine Ratio 15.7, Glucose 97, Calcium 8.6, Phosphorus 4.5, Magnesium 1.9, Total Bilirubin 0.59, AST 19, ALT 10, Alkaline Phosphatase 72, Total Protein 6.0, Albumin 3.5, Globulin 2.5, Albumin/Globulin Ratio 1.4 Micro: Microbiology 04/23/25 12:25 Sputum, Induced/Lukens Gram Stain - Final ABG Data ABG results: ABG 04/24/25 08:30 Specimen Type ART Sample Site R Radial pH 7.44 Bicarbonate Actual 26.4 H Total CO2 28 Base Excess 2 O2 Saturation 90 L O2 % 30.0 ABG pCO2 39.1 ABG pO2 56 L Herson Test Positive Respiration Rate 14 O2 Delivery Device ET Tube Vent Mode AC Tidal Volume 450.0 POC PEEP 5 Radiography Diagnostic Testing: Radiology Impression Chest X-Ray 04/24/25 08:28 IMPRESSION: The support tubes are in good position. Improved aeration of the left lung base. Reading Location: [place] [id number] Physical Exam Const Constitutional Narrative: intubated, sedated. RASS score is -4 HEENT normocephalic, head/scalp atraumatic, moist oral mucous membranes and oropharynx normal Eyes EOMs intact bilaterally Lymph Lymphatic: no lymphedema noted Resp Resp Narrative: Moderately diminished breath sounds bibasilarly. Bibasilar crackles. intubated and sedated. RASS score is -4 Cardio S1 normal heart sound, S2 normal heart sound and no murmurs Cardio Narrative: bradycardic GI normal to inspection, nondistended, normoactive bowel sounds and soft to palpation Extremity normal capillary refill, no clubbing, cyanosis or edema and no calf tenderness General Extremity: no tenderness to palpation of joints or extremities Skin General Skin Exam: no breakdown Neuro Neuro Narrative: restless, lethargic, moves all extremities spontaneously Psych Psych Narrative: intubated and sedated. Assessment & Plan Assessment/Plan (1) Acute respiratory failure with hypoxia and hypercapnia: (2) Alcohol withdrawal: (3) Left carotid stenosis: (4) Delirium tremens: PLAN: Plan #Acute hypoxic and hypercapnic respiratory failure * likely due to underlying COPD and respiratory depression from sedative meds as well as effect of DTs. * Patient was on oxygen by Venturi mask this morning but he had poor saturations so he was placed on BiPAP after ABG showed pH of 7.25 with elevated pCO2. Critical care was then consulted. * remains intubated though he was on spontaneous breathing on the vent. * On breathing treatments bronchodilators. Antibiotics not initiated as he does not have a fever and does not have elevated white cell count. * On Precedex and fentanyl. * Per critical care no plans for extubation until patient is out of the window for DTs. * #Carotid stenosis: S/p left carotid endarterectomy. Management as per primary service vascular surgery. On aspirin and cilostazol as well as Plavix #History of chronic alcohol use disorder with acute alcohol withdrawal and DTs * On alcohol withdrawal protocol phenobarbital. On thiamine, folic acid and Multi-Lavon. * Adjunctive meds for symptomatic relief. * #History of left ventricular outflow obstruction: * Will need to monitor closely to avoid hypotension. * Will benefit from phenylephrine if vasopressors are needed in light of the left ventricular outflow obstruction. * Beta-asael started today to help with heart rates #Nutrition: Patient started on tube feeds today. * # DVT prophylaxis: Lovenox Charges/Coding Visit Charges Inpatient E&M: [id number] [facility] L3
[2025-04-24] MEDS: fentaNYL drip 100 ML 5 MCG CONT INF (18:11)
[2025-04-25] VITALS (42 sets, daily range): BP systolic 93–164; BP diastolic 38–88; PULSE 66–123; RESP 11–31; TEMP 36.6–37.9; O2SAT 90–99; BMI 31.5
[2025-04-25 05:35] LABS: Anion Gap 12 (5-15); BUN 14 mg/dL (4-19); BUN/Creat Ratio 16.6 RATIO (10-20); Calcium,Total 8.7 mg/dL (7.6-11.0); Carbon Dioxide 23.4 mmol/L (21.0-32.0); Chloride 95 mmol/L (98-108); Estimated Creatinine Clearance 82.19 ml/min (50-250); Glucose 131 mg/dL (70-99); Magnesium 1.9 mg/dL (1.5-2.2); Potassium 3.3 mmol/L (3.3-5.1)
[2025-04-25 06:18] LABS: Allen Test Positive; Base Excess 4 mmol/L (-2 to +2); FI02 30.0; PEEP 5; PO2 59 mmHG (75-100); RR 14; SITE R Radial; SO2 93 % (94-98)
--- NOTE | 2025-04-25 07:42 | PN.CC_ITS ---
Assessment & Plan Assessment/Plan (1) Alcohol withdrawal: (2) Acute respiratory failure with hypoxia and hypercapnia: PLAN: Plan RECOMMENDATIONS: 1. Continue current ventilatory support with plans for daily paired spontaneous awakening and breathing trials, as tolerated. 2. Continue phenobarbital taper along with benzodiazepines for symptom management of alcohol withdrawal. Continue thiamine and folic acid. 3. Continue beta-asael for heart rate control. 4. Continue appropriate GI and DVT prophylaxis. 5. Continue tube feeding for nutritional support. Monitor electrolytes closely, as the patient will be at high risk for refeeding syndrome. IMPRESSIONS: 1. Acute hypoxemic and hypercapnic respiratory failure Most likely secondary to underlying COPD coupled with inability to compensate for metabolic demands of acute alcohol withdrawal and respiratory depression induced by sedative medication administration. Accordingly, the patient was emergently intubated on April 23. The patient will be continued on assist- control mode of mechanical ventilation, with a goal to wean FiO2 and PEEP as tolerated. There are no plans for extubation until the patient is outside of his window for alcohol withdrawal. He will be maintained on Precedex as needed along with phenobarbital and benzodiazepines. Given the lack of infiltrate or consolidation noted on chest imaging, we will hold off on antimicrobials. 2. Acute alcohol withdrawal The patient was ultimately intubated as a consequence of his acute alcohol withdrawal. Plan to continue Precedex and fentanyl for sedation. Recommend continuation of benzodiazepines along with thiamine and folic acid. 3. History of LVH with LVOT Continue supportive care as noted above. Caution needs to be exercised to avoid hypotension as this will increase his left ventricular outflow gradient. If vasopressors are needed, recommend initiation of phenylephrine. Recommend continuation of beta-asael for heart rate control. 4. History of bilateral carotid artery stenosis status post left carotid endarterectomy Continue routine postoperative care per vascular surgery recommendations. 5. History of chronic tobacco and alcohol dependency Complicates care, management, recovery and prognosis. Continue supportive measures as noted above. Continue tube feeding for nutritional support. Monitor electrolytes closely for evidence of refeeding syndrome. TIME: 33 minutes of critical care time, independent of procedures, was spent addressing the patient's acute hypoxemic and hypercapnic respiratory failure, acute alcohol withdrawal, review of all data and collaboration with the care team. Subjective Subjective The patient was seen and examined at the bedside this morning. Events from the last 24 hours have been reviewed. The patient currently has a low-grade fever but remains otherwise hemodynamically stable on assist-control mode mechanical ventilation with an FiO2 requirement of 40% and PEEP of 5. White blood cell count is normal this morning. Hemoglobin and platelet count are stable. Arterial blood gas was notable for a pH of 7.49 with a pCO2 of 35 and pO2 of 59. The patient has been tolerant of trophic tube feeding. Objective Data Objective Data The patient's most recent lab work, culture data and imaging studies have all been personally reviewed. Sputum culture is pending. Vital Signs: Vital Signs Temp Pulse Resp BP Pulse Ox O2 Del Method O2 Flow Rate 100.2 F H 66 19 H 111/60 95 Mechanical Ventilator 40 04/25/25 04:44 04/25/25 07:37 04/25/25 07:00 04/25/25 07:00 04/25/25 07:00 04/25/25 07:00 04/23/25 18:00 FiO2 40 04/25/25 07:00 Oxygen Flow Rate (L/min) 40 Oxygen Delivery Method Mechanical Ventilator Weight: 213 lb 10.047 oz Body Mass Index (BMI) 31.5 Intake & Output: Intake and Output for Last 24 Hours 04/23/25 04/24/25 04/25/25 23:59 23:59 23:59 Intake Total 2676.95 / 2723.41 2364.77 / 2399.77 100 / 100 Output Total 1375 / 1375 600 / 950 650 / 650 Balance 1301.95 / 1348.41 1764.77 / 1449.77 -550 / -550 Lab / Micro Data Attestation: I reviewed the patient's lab results. 04/25/25 07:45 04/25/25 04:53 Labs: Laboratory Results - last 24 hr 04/25/25 04:53: Sodium 131 L, Potassium 3.3, Chloride 95 L, Carbon Dioxide 23.4, Anion Gap 12, BUN 14, Creatinine 0.86, Estim Creat Clear Calc 82.19, Est GFR (MDRD) Non-Af 89, BUN/Creatinine Ratio 16.6, Glucose 131 H, Calcium 8.7, Phosphorus 3.3, Magnesium 1.9 Micro: Microbiology 04/23/25 12:25 Sputum, Induced/Lukens Gram Stain - Final ABG Data ABG results: ABG 04/24/25 04/25/25 08:30 06:15 Specimen Type ART ART Sample Site R Radial R Radial pH 7.44 7.49 H Bicarbonate Actual 26.4 H 26.8 H Total CO2 28 28 Base Excess 2 4 H O2 Saturation 90 L 93 L O2 % 30.0 30.0 ABG pCO2 39.1 34.9 L ABG pO2 56 L 59 L Herson Test Positive Positive Respiration Rate 14 14 O2 Delivery Device ET Tube Adult Vent Vent Mode AC Not entered Tidal Volume 450.0 450.0 POC PEEP 5 5 Radiography Diagnostic Testing: Radiology Impression Chest X-Ray 04/24/25 08:28 IMPRESSION: The support tubes are in good position. Improved aeration of the left lung base. Reading Location: [facility] Physical Exam Const no apparent distress Constitutional Narrative: Intubated and mechanically ventilated. General Appearance: patient mechanically ventilated HEENT normocephalic and head/scalp atraumatic Mouth: endotracheal tube in place and OG tube in place Eyes PERRL, EOMs intact bilaterally and conjunctivae normal Neck supple General: trachea midline Chest inspection of chest normal Resp Auscultation: diminished lung sounds; Negative for rales, rhonchi or wheezes Cardio S1 normal heart sound and S2 normal heart sound Rate: tachycardic GI normal to inspection, nondistended, normoactive bowel sounds Extremity no clubbing, cyanosis or edema Skin no rashes or lesions noted Neuro Sensorium / Orientation: sedated on vent Charges/Coding Procedures Hospitalists Procedures: 36009 Critical Care 1st Hr
[2025-04-25 08:01] LABS: Hematocrit 36.0 % (40-54); Hemoglobin 12.7 g/dL (13.0-16.5); Immature Granulocytes Count 0.050 X10^3/uL (0.0-0.0); Mean Corp Hgb Conc 35.3 g/dL (32-36); Mean Corpuscular Volume 97.0 fL (80-94); Mean Platelet Vol. 9.1 fl (6.2-12.0); NRBC Flagged by Analyzer 0 % (0-5); Platelet Count 358 K/mm3 (150-450); RBC Distribution Width CV 12.6 % (11.6-14.6); RBC Distribution Width SD 44.6 fl (35.1-43.9); Red Blood Count 3.71 M/mm3 (4.6-6.2); White Blood Count 9.0 K/mm3 (4.4-11.0)
[2025-04-25] MEDS: Thiamine Hydrochloride 100 MG Tablet PO (10:00)
[2025-04-25] MEDS: Aspirin E.C. 81 MG Tablet PO (10:00)
[2025-04-25] MEDS: Chlorhexidine 15 ML PO ×2 (10:01→21:45)
[2025-04-25] MEDS: CHLORHEXIDINE GLUC 2% CLOTH 1 EACH TOWELETTE TOPICAL (10:01)
[2025-04-25] MEDS: Metoprolol(XL)Succ 50 MG Tablet PO ×2 (10:01→21:41)
[2025-04-25] MEDS: Pantoprazole Sodium 40 MG in 0.9% Normal Saline (100mL MB+) 100 ML 300 MG IV (10:12)
--- NOTE | 2025-04-25 10:44 | PCM.PN.SRG ---
Subjective Subjective I saw Mr. Kirby this afternoon. He remains intubated. He awoke to voice. As far as he is able to participate, neuro exams have been intact. He has had lower blood pressures today. Objective Data Objective Data Vital Signs: Vital Signs Temp Pulse Resp BP Pulse Ox O2 Del Method O2 Flow Rate 98.3 F 123 H 23 H 161/61 H 92 Mechanical Ventilator 40 04/25/25 08:00 04/25/25 10:01 04/25/25 10:00 04/25/25 10:00 04/25/25 10:00 04/25/25 10:00 04/23/25 18:00 FiO2 40 04/25/25 10:00 Oxygen Flow Rate (L/min) 40 Oxygen Delivery Method Mechanical Ventilator Weight: 213 lb 10.047 oz Body Mass Index (BMI) 31.5 Intake & Output: Intake and Output for Last 24 Hours 04/23/25 04/24/25 04/25/25 23:59 23:59 23:59 Intake Total 2676.95 / 2723.41 2364.77 / 2399.77 230 / 230 Output Total 1375 / 1375 600 / 950 650 / 650 Balance 1301.95 / 1348.41 1764.77 / 1449.77 -420 / -420 Lab / Micro Data 04/25/25 07:45 04/25/25 04:53 Labs: Laboratory Results - last 24 hr 04/25/25 04:53: Sodium 131 L, Potassium 3.3, Chloride 95 L, Carbon Dioxide 23.4, Anion Gap 12, BUN 14, Creatinine 0.86, Estim Creat Clear Calc 82.19, Est GFR (MDRD) Non-Af 89, BUN/Creatinine Ratio 16.6, Glucose 131 H, Calcium 8.7, Phosphorus 3.3, Magnesium 1.9 04/25/25 07:45: WBC 9.0, RBC 3.71 L, Hgb 12.7 L, Hct 36.0 L, MCV 97.0 H, MCH 34.2 H, MCHC 35.3, RDW Std Deviation 44.6 H, RDW Coeff of Nicola 12.6, Plt Count 358, MPV 9.1, Immature Gran % (Auto) 0.600, Neut % (Auto) 77.0 H, Lymph % (Auto) 10.3 L, Winston % (Auto) 11.6 H, Eos % (Auto) 0.1, Baso % (Auto) 0.4, Absolute Neuts (auto) 6.9, Absolute Lymphs (auto) 0.93, Nucleated RBC % 0 Micro: Microbiology 04/23/25 12:25 Sputum, Induced/Lukens Gram Stain - Final 04/23/25 12:25 Sputum, Induced/Lukens Respiratory Culture - Final Mixed normal respiratory randi. No Streptococcus pneumoniae, beta-hemolytic Streptococcus or Staphylococcus aureus isolated. ABG Data ABG results: ABG 04/25/25 06:15 Specimen Type ART Sample Site R Radial pH 7.49 H Bicarbonate Actual 26.8 H Total CO2 28 Base Excess 4 H O2 Saturation 93 L O2 % 30.0 ABG pCO2 34.9 L ABG pO2 59 L Herson Test Positive Respiration Rate 14 O2 Delivery Device Adult Vent Vent Mode Not entered Tidal Volume 450.0 POC PEEP 5 Physical Exam Const Constitutional Narrative: intubated, but more alert and able to follow commands HEENT head/scalp atraumatic, external ears normal and external nose normal Neck Neck Narrative: L neck incision site with skin glue intact, no dehiscence/drainage. Small dressing C/D/I to CHAR drain site, minimal drainage. Stable moderate swelling to the L neck incision site, soft to palpation. Resp normal respiratory effort Cardio regular rate and regular rhythm Skin no rashes or lesions noted Neuro moves all extremities Neuro Narrative: Patient awoke to his name, following commands, able to move all extremities, good equal strength bilaterally, no noted facial droop Sensorium / Orientation: other sedate Assessment & Plan Assessment/Plan (1) Left carotid stenosis: PLAN: Plan He is POD#4 from L CEA. Incision site satisfactory in appearance with stable postoperative swelling. He remains intubated, but is alert and following commands. Neuro exam intact.
--- NOTE | 2025-04-25 11:32 | PN_ITS ---
Subjective Subjective Patient seen and examined today. He was having a spontaneous breathing trial. He was able to open his eyes and responds to voice but unable to do review of systems as he remains intubated and quite lethargic. Blood pressure is running on the lower side of normal at 98/50. He was also tachypneic and tachycardic during the spontaneous breathing trial. Objective Data Objective Data Vital Signs: Vital Signs Temp Pulse Resp BP Pulse Ox O2 Del Method O2 Flow Rate 98.3 F 107 H 21 H 98/50 L 93 Mechanical Ventilator 40 04/25/25 08:00 04/25/25 11:00 04/25/25 11:00 04/25/25 11:00 04/25/25 11:00 04/25/25 11:00 04/23/25 18:00 FiO2 40 04/25/25 11:00 Oxygen Flow Rate (L/min) 40 Oxygen Delivery Method Mechanical Ventilator Weight: 213 lb 10.047 oz Body Mass Index (BMI) 31.5 Intake & Output: Intake and Output for Last 24 Hours 04/23/25 04/24/25 04/25/25 23:59 23:59 23:59 Intake Total 2676.95 / 2723.41 2364.77 / 2399.77 230 / 230 Output Total 1375 / 1375 600 / 950 650 / 650 Balance 1301.95 / 1348.41 1764.77 / 1449.77 -420 / -420 Lab / Micro Data 04/25/25 07:45 04/25/25 04:53 Labs: Laboratory Results - last 24 hr 04/25/25 04:53: Sodium 131 L, Potassium 3.3, Chloride 95 L, Carbon Dioxide 23.4, Anion Gap 12, BUN 14, Creatinine 0.86, Estim Creat Clear Calc 82.19, Est GFR (MDRD) Non-Af 89, BUN/Creatinine Ratio 16.6, Glucose 131 H, Calcium 8.7, Phosphorus 3.3, Magnesium 1.9 04/25/25 07:45: WBC 9.0, RBC 3.71 L, Hgb 12.7 L, Hct 36.0 L, MCV 97.0 H, MCH 34.2 H, MCHC 35.3, RDW Std Deviation 44.6 H, RDW Coeff of Nicola 12.6, Plt Count 358, MPV 9.1, Immature Gran % (Auto) 0.600, Neut % (Auto) 77.0 H, Lymph % (Auto) 10.3 L, Hutchinson % (Auto) 11.6 H, Eos % (Auto) 0.1, Baso % (Auto) 0.4, Absolute Neuts (auto) 6.9, Absolute Lymphs (auto) 0.93, Nucleated RBC % 0 Micro: Microbiology 04/23/25 12:25 Sputum, Induced/Lukens Gram Stain - Final 04/23/25 12:25 Sputum, Induced/Lukens Respiratory Culture - Final Mixed normal respiratory randi. No Streptococcus pneumoniae, beta-hemolytic Streptococcus or Staphylococcus aureus isolated. ABG Data ABG results: ABG 04/25/25 06:15 Specimen Type ART Sample Site R Radial pH 7.49 H Bicarbonate Actual 26.8 H Total CO2 28 Base Excess 4 H O2 Saturation 93 L O2 % 30.0 ABG pCO2 34.9 L ABG pO2 59 L Herson Test Positive Respiration Rate 14 O2 Delivery Device Adult Vent Vent Mode Not entered Tidal Volume 450.0 POC PEEP 5 Physical Exam Const Constitutional Narrative: intubated, sedated. RASS score is -4 HEENT normocephalic, head/scalp atraumatic, moist oral mucous membranes and oropharynx normal Eyes EOMs intact bilaterally Neck supple Lymph Lymphatic: no lymphedema noted Resp Resp Narrative: Moderately diminished breath sounds bibasilarly. Bibasilar crackles. intubated and sedated. RASS score is 0 Cardio regular rhythm, S1 normal heart sound, S2 normal heart sound and no murmurs Cardio Narrative: tachcyardic GI normal to inspection, nondistended, normoactive bowel sounds and soft to palpation Extremity normal capillary refill, no clubbing, cyanosis or edema and no calf tenderness General Extremity: no tenderness to palpation of joints or extremities Skin General Skin Exam: no breakdown Neuro Neuro Narrative: intubated, sedated. RASS score is 0 Psych Psych Narrative: intubated and sedated. Assessment & Plan Assessment/Plan (1) Acute respiratory failure with hypoxia and hypercapnia: (2) Alcohol withdrawal: (3) Left carotid stenosis: (4) Delirium tremens: PLAN: Plan #Acute hypoxic and hypercapnic respiratory failure * likely due to underlying COPD and respiratory depression from sedative meds as well as effect of DTs. * remains intubated though he was on spontaneous breathing on the vent. * On breathing treatments bronchodilators. Antibiotics not initiated as he does not have a fever and does not have elevated white cell count. * On Precedex and fentanyl. * Per critical care no plans for extubation until patient is out of the window for DTs. * #Carotid stenosis: S/p left carotid endarterectomy. Management as per primary service vascular surgery. On aspirin and cilostazol as well as Plavix #History of chronic alcohol use disorder with acute alcohol withdrawal and DTs * On alcohol withdrawal protocol phenobarbital. On thiamine, folic acid and Multi-Lavon. * Adjunctive meds for symptomatic relief. * #History of left ventricular outflow obstruction: * Will need to monitor closely to avoid hypotension. * Will benefit from phenylephrine if vasopressors are needed in light of the left ventricular outflow obstruction. * Beta-asael started today to help with heart rates #Nutrition: on tube feeds. * # DVT prophylaxis: Lovenox Charges/Coding Visit Charges Inpatient E&M: 31170 Subs Hosp L2
[2025-04-25] MEDS: fentaNYL drip 100 ML 5 MCG CONT INF (11:48)
[2025-04-26] VITALS (56 sets, daily range): BP systolic 70–204; BP diastolic 41–77; PULSE 83–134; RESP 14–33; TEMP 37.1–38.2; O2SAT 17–99; BMI 30.2
[2025-04-26] MEDS: CHLORHEXIDINE GLUC 2% CLOTH 1 EACH TOWELETTE TOPICAL ×2 (00:26→23:37)
--- NOTE | 2025-04-26 01:56 | PCM.HOSP.N ---
Hospitalist Note MAP decreased, improves when patient awoken but still lower. Will given IVF bolus and continue monitor.
[2025-04-26] MEDS: 0.9% Normal Saline (500mL Bag) 500 ML 999 ML IV (02:11)
[2025-04-26] MEDS: Vital High Protein 1,000 ML 30 ML GT (02:31)
[2025-04-26 03:47] LABS: Base Excess 1 mmol/L (-2 to +2); FI02 75.0; PEEP 5; PO2 47 mmHG (75-100); RR 14; SITE L Brach; SO2 87 % (94-98)
--- NOTE | 2025-04-26 04:03 | PCM.HOSP.N ---
Hospitalist Note Patient with onset tachycardia, increased FiO2 needs, ABG with low pO2, reviewed with respiratory and will continue with increased FiO2, increase PEEP, plan repeat ABG in 1-2.
[2025-04-26] MEDS: Phenylephrine 10 MG in 0.9% Normal Saline (250mL Bag) 249 ML 15 MG CONT INF ×2 (04:16→13:45)
[2025-04-26] MEDS: 0.9% Normal Saline (500mL Bag) 500 ML IV (05:36)
[2025-04-26] MEDS: fentaNYL drip 100 ML 7.5 MCG CONT INF ×2 (05:38→17:24)
--- NOTE | 2025-04-26 05:50 | RAD_ITS ---
PROCEDURE: CHEST 1 VIEW (PORTABLE) 04/26/2025 REASON FOR EXAM: RESPIRATORY FAILURE TECHNIQUE: Frontal view of the chest. COMPARISON: Chest x-ray study dated 04/24/2025 FINDINGS: Hardware: NG OG tube tip and port are in the region of the stomach. Endotracheal tube tip is positioned 4.6 cm above the bridgett cardiac leads overlie the chest. Surgical clips are seen in the subcutaneous tissues on the left side of the neck. Heart: Mild cardiomegaly which appears stable. Arteriosclerotic vascular disease of the aorta is noted. Pulmonary vasculature is slightly prominent centrally. Lungs: Left pleural effusion with adjacent compressive atelectasis of the lung base. Bones: Degenerative changes of the thoracic spine RAD/Chest 1 View (Portable) IMPRESSION: The cardiopulmonary findings are similar when compared to the prior exam. There is a trace left pleural effusion with adjacent compressive atelectasis of the left lung base. Pulmonary vasculature is prominent centrally. Reading Location: [id number]
[2025-04-26] MEDS: Acetylcysteine 800 MG/4 ML VIAL.NEB. INHALATION ×3 (06:50→19:18)
[2025-04-26 07:11] LABS: Hematocrit 33.4 % (40-54); Hemoglobin 11.8 g/dL (13.0-16.5); Immature Granulocytes Count 0.040 X10^3/uL (0.0-0.0); Mean Corp Hgb Conc 35.3 g/dL (32-36); Mean Corpuscular Volume 97.1 fL (80-94); Mean Platelet Vol. 9.6 fl (6.2-12.0); NRBC Flagged by Analyzer 0 % (0-5); POSITIVE MORPHOLOGY YES; Platelet Count 350 K/mm3 (150-450); RBC Distribution Width CV 12.9 % (11.6-14.6); RBC Distribution Width SD 46.0 fl (35.1-43.9); Red Blood Count 3.44 M/mm3 (4.6-6.2); White Blood Count 7.5 K/mm3 (4.4-11.0)
[2025-04-26 07:18] LABS: CPK Total, Creatine Kinase 884 U/L (24-195); Differential Indicated SCAN CRITERIA MET; Triglycerides 72 mg/dL
[2025-04-26 07:19] LABS: Anion Gap 13 (5-15); BUN 29 mg/dL (4-19); BUN/Creat Ratio 21.0 RATIO (10-20); Calcium,Total 8.4 mg/dL (7.6-11.0); Carbon Dioxide 23.5 mmol/L (21.0-32.0); Chloride 94 mmol/L (98-108); Estimated Creatinine Clearance 50.80 ml/min (50-250); Glucose 130 mg/dL (70-99); Potassium 3.4 mmol/L (3.3-5.1)
--- NOTE | 2025-04-26 10:03 | PN.SURG_ITS ---
Subjective Subjective I saw Mr. Kirby this morning at bedside; he awoke to voice, following commands and nodding his head to acknowledge discussion. Limited neuro exam intact. Overnight had increased agitation and required increased vent settings and restart of oriana drip overnight due to hypotension. WBC normal, some SREEDHAR this morning, he is net positive for this admission. Objective Data Objective Data Vital Signs: Vital Signs Temp Pulse Resp BP Pulse Ox O2 Del Method O2 Flow Rate 98.8 F 94 16 144/50 H 94 Mechanical Ventilator 40 04/26/25 04:00 04/26/25 09:31 04/26/25 09:31 04/26/25 07:00 04/26/25 09:31 04/26/25 07:00 04/23/25 18:00 FiO2 80 04/26/25 09:31 Oxygen Flow Rate (L/min) 40 Oxygen Delivery Method Mechanical Ventilator Weight: 204 lb 9.423 oz Body Mass Index (BMI) 30.2 Intake & Output: Intake and Output for Last 24 Hours 04/24/25 04/25/25 04/26/25 23:59 23:59 23:59 Intake Total 2364.77 / 2399.77 691.17 / 826.17 1808.59 / 1808.59 Output Total 600 / 950 900 / 1000 100 / 100 Balance 1764.77 / 1449.77 -208.83 / -173.83 1708.59 / 1708.59 Lab / Micro Data 04/26/25 04:30 04/26/25 04:30 Labs: Laboratory Results - last 24 hr 04/26/25 04:30: WBC 7.5, RBC 3.44 L, Hgb 11.8 L, Hct 33.4 L, MCV 97.1 H, MCH 34.3 H, MCHC 35.3, RDW Std Deviation 46.0 H, RDW Coeff of Nicola 12.9, Plt Count 350, MPV 9.6, Immature Gran % (Auto) 0.500, Neut % (Auto) 72.1 H, Lymph % (Auto) 10.8 L, Daggett % (Auto) 15.8 H, Eos % (Auto) 0.3, Baso % (Auto) 0.5, Absolute Neuts (auto) 5.4, Absolute Lymphs (auto) 0.81 L, Nucleated RBC % 0, Differential Comment , Sodium 131 L, Potassium 3.4, Chloride 94 L, Carbon Dioxide 23.5, Anion Gap 13, BUN 29 H, Creatinine 1.37 H, Estim Creat Clear Calc 50.80, Est GFR (MDRD) Non-Af 53 L, BUN/Creatinine Ratio 21.0 H, Glucose 130 H, Calcium 8.4, T otal Creatine Kinase 884 H, Triglycerides 72 Micro: Microbiology 04/23/25 12:25 Sputum, Induced/Lukens Gram Stain - Final 04/23/25 12:25 Sputum, Induced/Lukens Respiratory Culture - Final Mixed normal respiratory randi. No Streptococcus pneumoniae, beta-hemolytic Streptococcus or Staphylococcus aureus isolated. ABG Data ABG results: ABG 04/26/25 03:44 Specimen Type ART Sample Site L Brach pH 7.50 H Bicarbonate Actual 24.5 Total CO2 26 Base Excess 1 O2 Saturation 87 L O2 % 75.0 ABG pCO2 31.6 L ABG pO2 47 L Herson Test N/A Respiration Rate 14 O2 Delivery Device Adult Vent Vent Mode AC Tidal Volume 450.0 POC PEEP 5 Radiography Diagnostic Testing: Radiology Impression Chest X-Ray 04/26/25 05:50 IMPRESSION: The cardiopulmonary findings are similar when compared to the prior exam. There is a trace left pleural effusion with adjacent compressive atelectasis of the left lung base. Pulmonary vasculature is prominent centrally. Reading Location: [facility] Physical Exam Const Constitutional Narrative: intubated, sedate, but awakes to voice and follows commands HEENT head/scalp atraumatic, external ears normal and external nose normal Neck Neck Narrative: L neck incision site with skin glue intact, no dehiscence/drainage. Small dressing C/D/I to CHAR drain site, minimal dried drainage. Stable moderate swelling to the L neck incision site, soft to palpation. Resp Resp Narrative: intubated, on mechanical ventilation Cardio regular rate and regular rhythm Skin no rashes or lesions noted Neuro moves all extremities Neuro Narrative: Patient awoke to his name, following commands, able to move all extremities, good equal grasp bilateral hands, no noted facial droop Sensorium / Orientation: other sedate Assessment & Plan Assessment/Plan (1) Left carotid stenosis: PLAN: Plan He is POD#5 from L CEA. Incision site satisfactory in appearance with stable postoperative swelling. He remains intubated, but is alert and following commands. Neuro exam intact. Appreciate hospitalist/dental technician apprentice management with respect to alcohol withdrawal/DTs. Charges/Coding Procedures Integumentary [id number]: [id number] Global Visit
--- NOTE | 2025-04-26 10:09 | PN.CC_ITS ---
Objective Data Objective Data Vital Signs: Vital Signs Last response 3 Temperature 37.1 C 04/26/25 04:00 Temperature Source Oral 04/26/25 04:00 Pulse Rate 94 04/26/25 09:31 Pulse Strength Weak (1+) 04/25/25 21:06 Respiratory Rate 16 04/26/25 09:31 Respiratory Effort Mechanically Ventilated 04/26/25 04:40 Respiratory Depth Normal 04/26/25 04:40 Respiratory Pattern Normal 04/26/25 06:51 Blood Pressure 144/50 H 04/26/25 07:00 Blood Pressure Mean 81 04/26/25 07:00 Blood Pressure Source Monitor 04/26/25 07:00 Blood Pressure Position Semi-Fowlers 04/26/25 04:00 Blood Pressure Location Left Arm 04/26/25 04:00 Baseline BP 164/83 04/21/25 16:45 Pulse Ox 94 04/26/25 09:31 Oxygen Delivery Method Mechanical Ventilator 04/26/25 07:00 Oxygen Flow Rate (L/min) 40 04/23/25 18:00 Fraction of Inspired Oxygen (FIO2) 80 04/26/25 09:31 CLA-BSI maintained Yes 04/22/25 16:00 I&O: I&O Last 24 Hours 3 04/25/25 04/25/25 04/26/25 11:59 23:59 11:59 Intake Total 475.17 / 826.17 216 / 826.17 1808.59 / 1808.59 Output Total 650 / 1000 250 / 1000 100 / 100 Balance -174.83 / -173.83 -34 / -173.83 1708.59 / 1708.59 I&O: Total Stay 3 03/20/25 15:10 thru 04/26/25 07:08 Intake Total 73540.26 Output Total 7198 Balance 4534.26 Current Meds Ordered / Administered: Current meds ordered / Administered 3 Generic Name Dose Route Start Last Admin Trade Name Freq PRN Reason Stop Dose Admin Acetaminophen 1,000 mg 04/21/25 22:00 04/26/25 05:41 Acetaminophen 500 Mg Tablet PO 1,000 mg Q8 ANNIA Administration Acetylcysteine 800 mg 04/26/25 05:30 04/26/25 06:50 Acetylcysteine 800 Mg/4 Ml Vial.Neb. INHALATION 800 mg Q6H.RT ANNIA Administration Albuterol Sulfate 2.5 mg 04/21/25 17:07 Albuterol 2.5 Mg/3 Ml Vial.Neb. INHALATION Q2H PRN PRN SOB &/OR WHEEZING Albuterol/Ipratropium 3 ml 04/23/25 13:30 04/26/25 06:50 Ipratropium/Albuterol Sulfate 3 Ml Ampul.Neb INHALATION 3 ml Q6H.RT ANNIA Administration Aspirin 81 mg 04/22/25 08:00 04/25/25 10:00 Aspirin E.C. 81 Mg Tablet PO 81 mg BREAKFAST ANNIA Administration Atorvastatin Calcium 40 mg 04/21/25 22:00 04/25/25 21:45 Atorvastatin Calcium 40 Mg Tablet PO 40 mg QHS ANNIA Administration Chlorhexidine Gluconate 15 ml 04/23/25 22:00 04/25/25 21:45 Chlorhexidine 15 Ml PO 15 ml BID ANNIA Administration Chlorhexidine Gluconate 1 each 04/24/25 10:00 04/26/25 00:26 Chlorhexidine Gluc 2% Cloth 1 Each [place] TOPICAL 1 each DAILY ANNIA Administration Cilostazol 100 mg 04/21/25 22:00 04/25/25 21:40 Cilostazol 50 Mg Tablet PO 100 mg BID ANNIA Administration Clopidogrel Bisulfate 75 mg 04/22/25 10:00 04/25/25 10:00 Clopidogrel Bisulfate 75 Mg Tablet PO 75 mg DAILY ANNIA Administration Dicyclomine HCl 20 mg 04/23/25 01:06 Dicyclomine 10 Mg Capsule PO Q6H PRN PRN abdominal discomfort Docusate Sodium 100 mg 04/21/25 17:07 Docusate Sodium 100 Mg Capsule PO BID PRN PRN Constipation Enoxaparin Sodium 40 mg 04/22/25 10:00 04/25/25 10:00 Enoxaparin 40 Mg/0.4 Ml Syringe SC 40 mg DAILY ANNIA Administration Folic Acid 1 mg 04/23/25 08:00 04/25/25 10:00 Folic Acid 1 Mg Tablet PO 1 mg DAILY@0800 ANNIA Administration Gabapentin 300 mg 04/23/25 01:06 Gabapentin 300 Mg Capsule PO Q8H PRN PRN moderate to severe anxiety Guaifenesin 10 ml 04/21/25 17:07 Guaifenesin 10 Ml Udc (200mg/10ml) PO Q4H PRN PRN COUGH Hydralazine HCl 10 mg 04/22/25 08:28 04/24/25 15:07 Hydralazine 20 Mg/Ml Vial IV 10 mg Q2H PRN PRN Administration SBP > 140mmHg Hydrochlorothiazide 25 mg 04/22/25 10:00 04/25/25 10:00 Hydrochlorothiazide 25 Mg Tablet PO 25 mg DAILY ANNIA Administration Hydromorphone HCl 0.5 mg 04/21/25 17:07 Hydromorphone 0.5 Mg/0.5 Ml Syringe IV Q3H PRN PRN Pain Score 6-10 Hydroxyzine Pamoate 50 mg 04/23/25 01:06 Hydroxyzine Erendira 25 Mg Capsule PO Q4H PRN PRN mild anxiety Phenylephrine HCl 10 mg/ 250 mls @ 15 mls/hr 04/21/25 17:07 04/26/25 07:00 Sodium Chloride CONT INF 50 mcg/min .[id number] ANNIA 75 mls/hr Protocol Titration 10 MCG/MIN Fentanyl 100 mls @ 5 mls/hr 04/23/25 10:50 04/26/25 05:38 CONT INF 75 mcg/hr UD ANNIA 7.5 mls/hr Protocol Administration 50 MCG/HR Propofol 1,000 mg in 100 mls @ 5.784 mls/hr 04/23/25 12:20 04/26/25 00:34 Diprivan CONT INF Not Given .Q12H ANNIA Protocol 10 MCG/KG/MIN Pantoprazole Sodium 40 mg/ 100 mls @ 300 mls/hr 04/24/25 10:00 04/25/25 10:36 Sodium Chloride IV Infused Q24 ANNIA Infusion Enteral Nutritional Formula 1,000 mls @ 55 mls/hr 04/24/25 11:15 04/26/25 02:31 Vital High Protein GT 30 mls/hr .[id number] ANNIA Administration Propofol 1,000 mg in 100 mls @ 5.814 mls/hr 04/26/25 05:20 04/26/25 05:41 Diprivan CONT INF Not Given .Q12H ANNIA Protocol 10 MCG/KG/MIN Labetalol HCl 10 mg 04/22/25 08:28 04/23/25 03:47 Labetalol 20 Mg/4 Ml Vial IV 10 mg Q2H PRN PRN Administration SBP > 140mmHg Lisinopril 40 mg 04/22/25 10:00 04/25/25 10:00 Lisinopril 40 Mg Tablet PO 40 mg DAILY ANNIA Administration Loperamide HCl 2 mg 04/23/25 01:06 Loperamide 2 Mg Capsule PO Q4H PRN PRN DIARRHEA/LOOSE STOOLS Lorazepam 2 mg 04/22/25 08:28 04/25/25 14:21 Lorazepam 2 Mg/Ml Syringe IV 2 mg UD PRN Administration CIWA score >/=15. Protocol Lorazepam 2 mg 04/22/25 08:28 04/23/25 09:39 Lorazepam 2 Mg/Ml Syringe IV 2 mg Q2H PRN PRN Administration CIWA score > 8 but <15 Protocol Lorazepam 2 mg 04/22/25 08:28 04/22/25 08:49 Lorazepam 1 Mg Tablet PO 2 mg UD PRN Administration CIWA score >/=15. Protocol Lorazepam 2 mg 04/22/25 08:28 04/22/25 17:32 Lorazepam 1 Mg Tablet PO 2 mg Q2H PRN PRN Administration CIWA score > 8 but <15 Protocol Metoprolol Succinate 50 mg 04/22/25 22:00 04/25/25 21:41 Metoprolol(Xl)Succ 50 Mg Tablet PO 50 mg BID ANNIA Administration Protocol Multivitamins/Minerals 1 tablet 04/23/25 08:00 04/25/25 10:00 Multivitamins,Ther W-Minerals Tablet PO 1 tablet BREAKFAST ANNIA Administration Ondansetron HCl 4 mg 04/21/25 17:07 Ondansetron 4 Mg/2 Ml Vial IV Q8H PRN PRN NAUSEA/VOMITING Oxycodone HCl 5 mg 04/21/25 17:07 Oxycodone 5 Mg Tablet PO Q4H PRN PRN Pain Score 4-10 Phenobarbital 64.8 mg 04/23/25 07:00 04/26/25 02:40 Phenobarbital 32.4 Mg Tablet PO 04/27/25 14:59 64.8 mg Q6H ANNIA Administration Taper Sodium Chloride 10 - 40 ml 04/21/25 16:59 04/24/25 04:55 0.9% Saline Lock 10 Ml Syringe IV 10 ml UD PRN Administration SALINE FLUSH Thiamine HCl 100 mg 04/23/25 08:00 04/25/25 10:00 Thiamine Hydrochloride 100 Mg Tablet PO 100 mg DAILYCM ANNIA Administration Throat Lozenges 1 lozenge 04/21/25 17:07 Benzocaine/Menthol 1 Lozenge MUCOUS MEM Q2H PRN PRN SORE THROAT Trazodone HCl 100 mg 04/23/25 01:06 Trazodone 100 Mg Tablet PO QHS PRN INSOMNIA Lab / Micro Data 04/26/25 04:30 04/26/25 04:30 Labs: Laboratory Results - last 24 hr 04/26/25 04:30: WBC 7.5, RBC 3.44 L, Hgb 11.8 L, Hct 33.4 L, MCV 97.1 H, MCH 34.3 H, MCHC 35.3, RDW Std Deviation 46.0 H, RDW Coeff of Nicola 12.9, Plt Count 350, MPV 9.6, Immature Gran % (Auto) 0.500, Neut % (Auto) 72.1 H, Lymph % (Auto) 10.8 L, Mcdonald % (Auto) 15.8 H, Eos % (Auto) 0.3, Baso % (Auto) 0.5, Absolute Neuts (auto) 5.4, Absolute Lymphs (auto) 0.81 L, Nucleated RBC % 0, Differential Comment , Sodium 131 L, Potassium 3.4, Chloride 94 L, Carbon Dioxide 23.5, Anion Gap 13, BUN 29 H, Creatinine 1.37 H, Estim Creat Clear Calc 50.80, Est GFR (MDRD) Non-Af 53 L, BUN/Creatinine Ratio 21.0 H, Glucose 130 H, Calcium 8.4, T otal Creatine Kinase 884 H, Triglycerides 72 Micro: Microbiology 04/23/25 12:25 Sputum, Induced/Lukens Gram Stain - Final 04/23/25 12:25 Sputum, Induced/Lukens Respiratory Culture - Final Mixed normal respiratory randi. No Streptococcus pneumoniae, beta-hemolytic Streptococcus or Staphylococcus aureus isolated. ABG Data ABG results: ABG 04/26/25 03:44 Specimen Type ART Sample Site L Brach pH 7.50 H Bicarbonate Actual 24.5 Total CO2 26 Base Excess 1 O2 Saturation 87 L O2 % 75.0 ABG pCO2 31.6 L ABG pO2 47 L Herson Test N/A Respiration Rate 14 O2 Delivery Device Adult Vent Vent Mode AC Tidal Volume 450.0 POC PEEP 5 Imaging Radiology Impression Chest X-Ray 04/26/25 05:50 IMPRESSION: The cardiopulmonary findings are similar when compared to the prior exam. There is a trace left pleural effusion with adjacent compressive atelectasis of the left lung base. Pulmonary vasculature is prominent centrally. Reading Location: [id number] Assessment and Plan . Assessment and plan: Critical Care Time: The entirety of this encounter was done via Telemedicine Subjective Subjective Pt seen and examined. Intubated, sedated. Episodes of desaturation overnight & continues to be agitated. Hypotensive, sp fluid bolus and restarted on Jason. Significant oral & ETT secretions. Afebrile. Fent @ 75 Jason @ 30 TFs @ 30 + 100 q4h 14 450 8 90 PE: General: Well developed, +MV HEENT: anicteric Sclera; + ETT, nl nose; supple neck, no masses Cardiovascular: Regular Rate and Rhythm; no displaced PMI Respiratory: diminished; no crackles, wheezes, or rhonchi Abdominal: Non-tender; Non distended; hypoBS x 4; No Hepatosplenomegaly Extremities: Warm, well perfused; No clubbing, cyanosis; capillary refill < 2 sec Neurological: sedated but agitated; spont moves extremities A/P #Acute respiratory failure, intubated 04/23 #ETOH abuse with acute severe withdrawal syndrome #SREEDHAR #B/L carotid artery stenosis status post left carotid endarterectomy #COPD #History of LVH with LVOT #Tobacco abuse -Continue MV; settings reviewed/adjusted; worsening O2 req possible related to sig vent dyssynchrony; CXR stable; added Versed gtt also to treat ETOH withdrawal/DTs -Start Versed gtt to use BZD-forward strategy; finish phenobarbital taper; PRN Precedex; continue thiamine and folic acid -On Mucomyst/percussive therapy for bronchopulm hygiene -Cont Jason to keep MAP > 65; hold metop/lisinopril/HCTZ -Bump up in sCr this AM & sp fluids; hold lisinopril/HCTZ; cont strict I/Os; monitor electrolytes closely, as the patient will be at high risk for refeeding syndrome -Postop management per vascular surgery TFs LMWH, PPI Guarded prognosis CCT: 50 min The entirety of this encounter was completed via telemedicine.
--- NOTE | 2025-04-26 11:22 | PN_ITS ---
Subjective Subjective Patient seen and examined. He remains intubated and sedated. RASS score is -4. Objective Data Objective Data Vital Signs: Vital Signs Temp Pulse Resp BP Pulse Ox O2 Del Method O2 Flow Rate 98.8 F 94 16 144/50 H 94 Mechanical Ventilator 40 04/26/25 04:00 04/26/25 09:31 04/26/25 09:31 04/26/25 07:00 04/26/25 09:31 04/26/25 07:00 04/23/25 18:00 FiO2 80 04/26/25 09:31 Oxygen Flow Rate (L/min) 40 Oxygen Delivery Method Mechanical Ventilator Weight: 204 lb 9.423 oz Body Mass Index (BMI) 30.2 Intake & Output: Intake and Output for Last 24 Hours 04/24/25 04/25/25 04/26/25 23:59 23:59 23:59 Intake Total 2364.77 / 2399.77 691.17 / 826.17 1808.59 / 1808.59 Output Total 600 / 950 900 / 1000 100 / 100 Balance 1764.77 / 1449.77 -208.83 / -173.83 1708.59 / 1708.59 Lab / Micro Data 04/26/25 04:30 04/26/25 04:30 Labs: Laboratory Results - last 24 hr 04/26/25 04:30: WBC 7.5, RBC 3.44 L, Hgb 11.8 L, Hct 33.4 L, MCV 97.1 H, MCH 34.3 H, MCHC 35.3, RDW Std Deviation 46.0 H, RDW Coeff of Nicola 12.9, Plt Count 350, MPV 9.6, Immature Gran % (Auto) 0.500, Neut % (Auto) 72.1 H, Lymph % (Auto) 10.8 L, [place] % (Auto) 15.8 H, Eos % (Auto) 0.3, Baso % (Auto) 0.5, Absolute Neuts (auto) 5.4, Absolute Lymphs (auto) 0.81 L, Nucleated RBC % 0, Differential Comment , Sodium 131 L, Potassium 3.4, Chloride 94 L, Carbon Dioxide 23.5, Anion Gap 13, BUN 29 H, Creatinine 1.37 H, Estim Creat Clear Calc 50.80, Est GFR (MDRD) Non-Af 53 L, BUN/Creatinine Ratio 21.0 H, Glucose 130 H, Calcium 8.4, T otal Creatine Kinase 884 H, Triglycerides 72 Micro: Microbiology 04/23/25 12:25 Sputum, Induced/Lukens Gram Stain - Final 04/23/25 12:25 Sputum, Induced/Lukens Respiratory Culture - Final Mixed normal respiratory randi. No Streptococcus pneumoniae, beta-hemolytic Streptococcus or Staphylococcus aureus isolated. ABG Data ABG results: ABG 04/26/25 03:44 Specimen Type ART Sample Site L Brach pH 7.50 H Bicarbonate Actual 24.5 Total CO2 26 Base Excess 1 O2 Saturation 87 L O2 % 75.0 ABG pCO2 31.6 L ABG pO2 47 L Herson Test N/A Respiration Rate 14 O2 Delivery Device Adult Vent Vent Mode AC Tidal Volume 450.0 POC PEEP 5 Radiography Diagnostic Testing: Radiology Impression Chest X-Ray 04/26/25 05:50 IMPRESSION: The cardiopulmonary findings are similar when compared to the prior exam. There is a trace left pleural effusion with adjacent compressive atelectasis of the left lung base. Pulmonary vasculature is prominent centrally. Reading Location: [facility] Physical Exam Const Constitutional Narrative: intubated, sedated. RASS score is -4 HEENT normocephalic, head/scalp atraumatic, moist oral mucous membranes and oropharynx normal Eyes EOMs intact bilaterally Neck supple Lymph Lymphatic: no lymphedema noted Resp Resp Narrative: Moderately diminished breath sounds bibasilarly. Bibasilar crackles. intubated and sedated. RASS score is -4 Cardio regular rate, regular rhythm, S1 normal heart sound, S2 normal heart sound and no murmurs GI normal to inspection, nondistended, normoactive bowel sounds and soft to palpation Extremity normal capillary refill, no clubbing, cyanosis or edema and no calf tenderness Skin General Skin Exam: no breakdown Neuro Neuro Narrative: intubated, sedated. RASS score is -4 Psych Psych Narrative: intubated and sedated. Assessment & Plan Assessment/Plan (1) Acute respiratory failure with hypoxia and hypercapnia: (2) Alcohol withdrawal: (3) Left carotid stenosis: (4) Delirium tremens: PLAN: Plan #Acute hypoxic and hypercapnic respiratory failure * likely due to underlying COPD and respiratory depression from sedative meds as well as effect of DTs. * remains intubated. Failed spontaneous breathing trials. * On breathing treatments bronchodilators. Antibiotics not initiated as he does not have a fever and does not have elevated white cell count. * On Precedex and fentanyl. * Per critical care no plans for extubation until patient is out of the window for DTs. * #Carotid stenosis: S/p left carotid endarterectomy. Management as per primary service vascular surgery. On aspirin and cilostazol as well as Plavix #History of chronic alcohol use disorder with acute alcohol withdrawal and DTs * On alcohol withdrawal protocol phenobarbital. On thiamine, folic acid and Multi-Lavon. * Adjunctive meds for symptomatic relief. * #History of left ventricular outflow obstruction: * Will need to monitor closely to avoid hypotension. * Will benefit from phenylephrine if vasopressors are needed in light of the left ventricular outflow obstruction. * on metoprolol XL 50mg bid. #Hypertension: on metoprolol and lisinopril. #Nutrition: on tube feeds. * # DVT prophylaxis: Lovenox Charges/Coding Visit Charges Inpatient E&M: 38110 Subs Hosp L3
[2025-04-26] MEDS: Midazolam 50 MG in 0.9% Normal Saline (100mL Bag) 90 ML CONT INF (11:58)
[2025-04-26] MEDS: Phenylephrine 10 MG in 0.9% Normal Saline (250mL Bag) 249 ML 45 MG CONT INF (13:00)
[2025-04-26] MEDS: Scopolamine 1mg/72hr Patch 1 PATCH TD (13:22)
[2025-04-26] MEDS: Pantoprazole Sodium 40 MG in 0.9% Normal Saline (100mL MB+) 100 ML 300 MG IV (13:25)
[2025-04-26] MEDS: Aspirin E.C. 81 MG Tablet PO (13:29)
[2025-04-26] MEDS: Thiamine Hydrochloride 100 MG Tablet PO (13:30)
[2025-04-26] MEDS: Chlorhexidine 15 ML PO ×2 (13:33→20:19)
--- NOTE | 2025-04-26 13:48 | CPS ---
elizabeth nurse was on computer so he scanned meds
[2025-04-26] MEDS: 0.9% Saline Lock 10 ML Syringe IV (23:52)
[2025-04-27] VITALS (44 sets, daily range): BP systolic 109–181; BP diastolic 39–77; PULSE 94–135; RESP 14–33; TEMP 37.4–40.3; O2SAT 90–97; BMI 32.1
[2025-04-27] MEDS: Phenylephrine 10 MG in 0.9% Normal Saline (250mL Bag) 249 ML 15 MG CONT INF (06:20)
[2025-04-27] MEDS: Polyethylene Glycol 3350 17 GM PACKET PO (06:29)
[2025-04-27] MEDS: fentaNYL drip 100 ML 7.5 MCG CONT INF ×2 (06:29→18:43)
[2025-04-27] MEDS: Vital High Protein 1,000 ML 40 ML GT (06:48)
[2025-04-27] MEDS: Acetylcysteine 800 MG/4 ML VIAL.NEB. INHALATION ×3 (06:54→19:09)
[2025-04-27 07:13] LABS: Hematocrit 32.2 % (40-54); Hemoglobin 11.1 g/dL (13.0-16.5); Immature Granulocytes Count 0.070 X10^3/uL (0.0-0.0); Mean Corp Hgb Conc 34.5 g/dL (32-36); Mean Corpuscular Volume 97.9 fL (80-94); Mean Platelet Vol. 9.5 fl (6.2-12.0); NRBC Flagged by Analyzer 0 % (0-5); POSITIVE MORPHOLOGY YES; Platelet Count 356 K/mm3 (150-450); RBC Distribution Width CV 13.1 % (11.6-14.6); RBC Distribution Width SD 47.2 fl (35.1-43.9); Red Blood Count 3.29 M/mm3 (4.6-6.2); White Blood Count 9.2 K/mm3 (4.4-11.0)
[2025-04-27 07:14] LABS: Differential Indicated SCAN CRITERIA MET
--- NOTE | 2025-04-27 07:20 | NURSING ---
change of shift rounds
[2025-04-27 07:53] LABS: Allen Test Positive; Base Excess 4 mmol/L (-2 to +2); FI02 75.0; PEEP 8; PO2 57 mmHG (75-100); RR 14; SITE R Brach; SO2 91 % (94-98)
[2025-04-27 08:14] LABS: Anion Gap 11 (5-15); BUN 28 mg/dL (4-19); BUN/Creat Ratio 31.7 RATIO (10-20); Calcium,Total 8.3 mg/dL (7.6-11.0); Carbon Dioxide 24.2 mmol/L (21.0-32.0); Chloride 97 mmol/L (98-108); Estimated Creatinine Clearance 79.47 ml/min (50-250); Glucose 152 mg/dL (70-99); Magnesium 2.1 mg/dL (1.5-2.2); Potassium 3.4 mmol/L (3.3-5.1)
[2025-04-27] MEDS: Chlorhexidine 15 ML PO ×2 (08:44→22:50)
[2025-04-27] MEDS: Thiamine Hydrochloride 100 MG Tablet PO (08:44)
[2025-04-27] MEDS: 0.9% Saline Lock 10 ML Syringe IV ×3 (08:44→16:54)
[2025-04-27] MEDS: Aspirin E.C. 81 MG Tablet PO (08:49)
--- NOTE | 2025-04-27 08:55 | PN.CC_ITS ---
Objective Data Objective Data Vital Signs: Vital Signs Last response 3 Temperature 37.7 C H 04/27/25 04:00 Temperature Source Temporal 04/27/25 04:00 Pulse Rate 110 H 04/27/25 07:00 Pulse Strength Weak (1+) 04/25/25 21:06 Respiratory Rate 24 H 04/27/25 07:00 Respiratory Effort Mechanically Ventilated 04/27/25 04:00 Respiratory Depth Normal 04/27/25 04:00 Respiratory Pattern Normal 04/27/25 04:00 Blood Pressure 162/46 H 04/27/25 07:00 Blood Pressure Mean 84 04/27/25 07:00 Blood Pressure Source Monitor 04/27/25 07:00 Blood Pressure Position Semi-Fowlers 04/27/25 06:00 Blood Pressure Location Right Arm 04/27/25 06:00 Baseline BP 164/83 04/21/25 16:45 Pulse Ox 95 04/27/25 07:00 Oxygen Delivery Method Mechanical Ventilator 04/27/25 07:00 Oxygen Flow Rate (L/min) 40 04/23/25 18:00 Fraction of Inspired Oxygen (FIO2) 75 04/27/25 07:00 CLA-BSI maintained Yes 04/22/25 16:00 I&O: I&O Last 24 Hours 3 04/26/25 04/26/25 04/27/25 11:59 23:59 11:59 Intake Total 1945.34 / 3050.22 1078.38 / 3050.22 659.00 / 659.00 Output Total 100 / 1110 1010 / 1110 400 / 400 Balance 1845.34 / 1940.22 68.38 / 1940.22 259.00 / 259.00 I&O: Total Stay 3 03/20/25 15:10 thru 04/27/25 07:00 Intake Total 75277.39 Output Total 8608 Balance 4998.39 Current Meds Ordered / Administered: Current meds ordered / Administered 3 Generic Name Dose Route Start Last Admin Trade Name Freq PRN Reason Stop Dose Admin Acetaminophen 1,000 mg 04/21/25 22:00 04/27/25 06:20 Acetaminophen 500 Mg Tablet PO 1,000 mg Q8 ANNIA Administration Acetylcysteine 800 mg 04/26/25 05:30 04/27/25 06:54 Acetylcysteine 800 Mg/4 Ml Vial.Neb. INHALATION 800 mg Q6H.RT ANNIA Administration Albuterol Sulfate 2.5 mg 04/21/25 17:07 Albuterol 2.5 Mg/3 Ml Vial.Neb. INHALATION Q2H PRN PRN SOB &/OR WHEEZING Albuterol/Ipratropium 3 ml 04/23/25 13:30 04/27/25 06:56 Ipratropium/Albuterol Sulfate 3 Ml Ampul.Neb INHALATION 3 ml Q6H.RT ANNIA Administration Aspirin 81 mg 04/22/25 08:00 04/27/25 08:49 Aspirin E.C. 81 Mg Tablet PO 81 mg BREAKFAST ANNIA Administration Atorvastatin Calcium 40 mg 04/21/25 22:00 04/26/25 21:13 Atorvastatin Calcium 40 Mg Tablet PO 40 mg QHS ANNIA Administration Chlorhexidine Gluconate 15 ml 04/23/25 22:00 04/27/25 08:44 Chlorhexidine 15 Ml PO 15 ml BID ANNIA Administration Chlorhexidine Gluconate 1 each 04/24/25 10:00 04/26/25 23:37 Chlorhexidine Gluc 2% Cloth 1 Each [place]lette TOPICAL 1 each DAILY ANNIA Administration Cilostazol 100 mg 04/21/25 22:00 04/27/25 08:44 Cilostazol 50 Mg Tablet PO 100 mg BID ANNIA Administration Clopidogrel Bisulfate 75 mg 04/22/25 10:00 04/27/25 08:43 Clopidogrel Bisulfate 75 Mg Tablet PO 75 mg DAILY ANNIA Administration Dicyclomine HCl 20 mg 04/23/25 01:06 Dicyclomine 10 Mg Capsule PO Q6H PRN PRN abdominal discomfort Docusate Sodium 100 mg 04/21/25 17:07 Docusate Sodium 100 Mg Capsule PO BID PRN PRN Constipation Enoxaparin Sodium 40 mg 04/22/25 10:00 04/27/25 08:43 Enoxaparin 40 Mg/0.4 Ml Syringe SC 40 mg DAILY ANNIA Administration Folic Acid 1 mg 04/23/25 08:00 04/27/25 08:49 Folic Acid 1 Mg Tablet PO 1 mg DAILY@0800 ANNIA Administration Gabapentin 300 mg 04/23/25 01:06 Gabapentin 300 Mg Capsule PO Q8H PRN PRN moderate to severe anxiety Guaifenesin 10 ml 04/21/25 17:07 Guaifenesin 10 Ml Udc (200mg/10ml) PO Q4H PRN PRN COUGH Hydralazine HCl 10 mg 04/22/25 08:28 04/24/25 15:07 Hydralazine 20 Mg/Ml Vial IV 10 mg Q2H PRN PRN Administration SBP > 140mmHg Hydroxyzine Pamoate 50 mg 04/23/25 01:06 Hydroxyzine Erendira 25 Mg Capsule PO Q4H PRN PRN mild anxiety Phenylephrine HCl 10 mg/ 250 mls @ 15 mls/hr 04/21/25 17:07 04/27/25 07:00 Sodium Chloride CONT INF 10 mcg/min .[id number] ANNIA 15 mls/hr Protocol Titration 10 MCG/MIN Fentanyl 100 mls @ 5 mls/hr 04/23/25 10:50 04/27/25 07:00 CONT INF 75 mcg/hr UD ANNIA 7.5 mls/hr Protocol Titration 50 MCG/HR Pantoprazole Sodium 40 mg/ 100 mls @ 300 mls/hr 04/24/25 10:00 04/26/25 14:00 Sodium Chloride IV Infused Q24 ANNIA Infusion Enteral Nutritional Formula 1,000 mls @ 55 mls/hr 04/24/25 11:15 04/27/25 06:48 Vital High Protein GT 40 mls/hr .[id number] ANNIA Administration Midazolam HCl 50 mg/ Sodium 100 mls @ 2 mls/hr 04/26/25 11:10 04/27/25 07:00 Chloride CONT INF 2 mg/hr .Q50H ANNIA 4 mls/hr Protocol Titration 1 MG/HR Sodium Chloride 250 mls @ 15 mls/hr 04/26/25 21:23 IV .[id number] PRN Saline Flush Sodium Chloride 250 mls @ 15 mls/hr 04/26/25 21:23 IV .[id number] PRN Additional IVPB Infusion Labetalol HCl 10 mg 04/22/25 08:28 04/23/25 03:47 Labetalol 20 Mg/4 Ml Vial IV 10 mg Q2H PRN PRN Administration SBP > 140mmHg Loperamide HCl 2 mg 04/23/25 01:06 Loperamide 2 Mg Capsule PO Q4H PRN PRN DIARRHEA/LOOSE STOOLS Lorazepam 2 mg 04/22/25 08:28 04/25/25 14:21 Lorazepam 2 Mg/Ml Syringe IV 2 mg UD PRN Administration CIWA score >/=15. Protocol Lorazepam 2 mg 04/22/25 08:28 04/23/25 09:39 Lorazepam 2 Mg/Ml Syringe IV 2 mg Q2H PRN PRN Administration CIWA score > 8 but <15 Protocol Lorazepam 2 mg 04/22/25 08:28 04/22/25 08:49 Lorazepam 1 Mg Tablet PO 2 mg UD PRN Administration CIWA score >/=15. Protocol Lorazepam 2 mg 04/22/25 08:28 04/22/25 17:32 Lorazepam 1 Mg Tablet PO 2 mg Q2H PRN PRN Administration CIWA score > 8 but <15 Protocol Metoprolol Succinate 50 mg 04/22/25 22:00 04/26/25 13:42 Metoprolol(Xl)Succ 50 Mg Tablet PO Not Given On Hold: 04/26/25 12:10 BID ANNIA Protocol Multivitamins/Minerals 1 tablet 04/23/25 08:00 04/27/25 08:43 Multivitamins,Ther W-Minerals Tablet PO 1 tablet BREAKFAST ANNIA Administration Ondansetron HCl 4 mg 04/21/25 17:07 Ondansetron 4 Mg/2 Ml Vial IV Q8H PRN PRN NAUSEA/VOMITING Oxycodone HCl 5 mg 04/21/25 17:07 Oxycodone 5 Mg Tablet PO Q4H PRN PRN Pain Score 4-10 Phenobarbital 32.4 mg 04/23/25 07:00 04/27/25 03:15 Phenobarbital 32.4 Mg Tablet PO 04/27/25 14:59 32.4 mg Q6H ANNIA Administration Taper Polyethylene Glycol 17 gm 04/27/25 04:16 04/27/25 06:29 Polyethylene Glycol 3350 17 Gm Packet PO 17 gm DAILY PRN PRN Administration constipation Scopolamine HBr 1 patch 04/26/25 11:15 04/26/25 13:22 Scopolamine 1mg/72hr Patch TD 1 patch Q3D ANNIA Administration Sodium Chloride 10 - 40 ml 04/21/25 16:59 04/27/25 08:44 0.9% Saline Lock 10 Ml Syringe IV 20 ml UD PRN Administration SALINE FLUSH Thiamine HCl 100 mg 04/23/25 08:00 04/27/25 08:44 Thiamine Hydrochloride 100 Mg Tablet PO 100 mg DAILYCM ANNIA Administration Throat Lozenges 1 lozenge 04/21/25 17:07 Benzocaine/Menthol 1 Lozenge MUCOUS MEM Q2H PRN PRN SORE THROAT Trazodone HCl 100 mg 04/23/25 01:06 Trazodone 100 Mg Tablet PO QHS PRN INSOMNIA Lab / Micro Data 04/27/25 07:03 04/27/25 07:03 Labs: Laboratory Results - last 24 hr 04/27/25 00:00: POC Glucose 143 H 04/27/25 07:03: WBC 9.2, RBC 3.29 L, Hgb 11.1 L, Hct 32.2 L, MCV 97.9 H, MCH 33.7 H, MCHC 34.5, RDW Std Deviation 47.2 H, RDW Coeff of Nicola 13.1, Plt Count 356, MPV 9.5, Immature Gran % (Auto) 0.800, Neut % (Auto) 75.0 H, Lymph % (Auto) 9.3 L, [place] % (Auto) 12.3 H, Eos % (Auto) 1.5, Baso % (Auto) 1.1 H, Absolute Neuts (auto) 6.9, Absolute Lymphs (auto) 0.85, Nucleated RBC % 0, Differential Comment , Sodium 132 L, Potassium 3.4, Chloride 97 L, Carbon Dioxide 24.2, Anion Gap 11, BUN 28 H, Creatinine 0.90, Estim Creat Clear Calc 79.47, Est GFR (MDRD) Non-Af 88, BUN/Creatinine Ratio 31.7 H, Glucose 152 H, Calcium 8.3, Phosphorus 2.3 L, Magnesium 2.1 Micro: Microbiology 04/23/25 12:25 Sputum, Induced/Lukens Gram Stain - Final 04/23/25 12:25 Sputum, Induced/Lukens Respiratory Culture - Final Mixed normal respiratory randi. No Streptococcus pneumoniae, beta-hemolytic Streptococcus or Staphylococcus aureus isolated. ABG Data ABG results: ABG 04/27/25 07:49 Specimen Type ART Sample Site R Brach pH 7.47 H Bicarbonate Actual 27.3 H Total CO2 29 Base Excess 4 H O2 Saturation 91 L O2 % 75.0 ABG pCO2 37.9 ABG pO2 57 L Herson Test Positive Respiration Rate 14 O2 Delivery Device Adult Vent Vent Mode AC Tidal Volume 450.0 POC PEEP 8 Imaging Radiology Impression Chest X-Ray 04/26/25 05:50 IMPRESSION: The cardiopulmonary findings are similar when compared to the prior exam. There is a trace left pleural effusion with adjacent compressive atelectasis of the left lung base. Pulmonary vasculature is prominent centrally. Reading Location: [facility] Assessment and Plan . Assessment and plan: Critical Care Time: The entirety of this encounter was done via Telemedicine Subjective Subjective Pt seen and examined. Intubated, sedated. More calm and is following simple commands. Still with significant oral & ETT secretions. Afebrile. Decent UOP. Fent @ 75 Versed @ 2 Jason @ 10 TFs @ 40 + 50 q4h 14 450 8 75 PE: General: Well developed, +MV HEENT: anicteric Sclera; + ETT, nl nose; supple neck, no masses Cardiovascular: Regular Rate and Rhythm; no displaced PMI Respiratory: diminished; Basilar rhonchi; no crackles, wheezes Abdominal: Non-tender; Non distended; hypoBS x 4; No Hepatosplenomegaly Extremities: Warm, well perfused; No clubbing, cyanosis; capillary refill < 2 sec Neurological: sedated but agitated; spont moves extremities A/P #Acute respiratory failure, intubated 04/23 #ETOH abuse with acute severe withdrawal syndrome #SREEDHAR #B/L carotid artery stenosis status post left carotid endarterectomy #COPD #History of LVH with LVOT #Tobacco abuse -Continue MV; settings reviewed/adjusted; wean FiO2 as tolerated --> will give one time Lasix/albumin -Start Versed gtt to use BZD-forward strategy; finish phenobarbital taper; PRN Precedex; continue thiamine and folic acid --> improved from agitation standpoint with Versed on board -On Mucomyst/percussive therapy for bronchopulm hygiene -Cont Jason to keep MAP > 65; hold metop/lisinopril/HCTZ; added PO midodrine -Bump up in sCr this AM & sp fluids; hold lisinopril/HCTZ; cont strict I/Os; monitor electrolytes closely, as the patient will be at high risk for refeeding syndrome --> improved sCr; cont monitor -Postop management per vascular surgery TFs LMWH, PPI Guarded prognosis CCT: 50 min The entirety of this encounter was completed via telemedicine.
[2025-04-27] MEDS: Midazolam 50 MG in 0.9% Normal Saline (100mL Bag) 90 ML CONT INF (09:45)
--- NOTE | 2025-04-27 10:49 | PN_ITS ---
Subjective Subjective Patient seen and examined. He remains intubated and sedated. He is going up on the FiO2 to 75%. Unable to do comprehensive review of systems. Objective Data Objective Data Vital Signs: Vital Signs Temp Pulse Resp BP Pulse Ox O2 Del Method O2 Flow Rate 99.8 F H 110 H 24 H 132/55 H 95 Mechanical Ventilator 40 04/27/25 04:00 04/27/25 07:00 04/27/25 07:00 04/27/25 09:00 04/27/25 07:00 04/27/25 07:00 04/23/25 18:00 FiO2 75 04/27/25 07:00 Oxygen Flow Rate (L/min) 40 Oxygen Delivery Method Mechanical Ventilator Weight: 216 lb 11.43 oz Body Mass Index (BMI) 32.1 Intake & Output: Intake and Output for Last 24 Hours 04/25/25 04/26/25 04/27/25 23:59 23:59 23:59 Intake Total 691.17 / 826.17 3023.72 / 3050.22 712.03 / 712.03 Output Total 900 / 1000 1110 / 1110 400 / 400 Balance -208.83 / -173.83 1913.72 / 1940.22 312.03 / 312.03 Lab / Micro Data 04/27/25 07:03 04/27/25 07:03 Labs: Laboratory Results - last 24 hr 04/27/25 00:00: POC Glucose 143 H 04/27/25 07:03: WBC 9.2, RBC 3.29 L, Hgb 11.1 L, Hct 32.2 L, MCV 97.9 H, MCH 33.7 H, MCHC 34.5, RDW Std Deviation 47.2 H, RDW Coeff of Nicola 13.1, Plt Count 356, MPV 9.5, Immature Gran % (Auto) 0.800, Neut % (Auto) 75.0 H, Lymph % (Auto) 9.3 L, [place] % (Auto) 12.3 H, Eos % (Auto) 1.5, Baso % (Auto) 1.1 H, Absolute Neuts (auto) 6.9, Absolute Lymphs (auto) 0.85, Nucleated RBC % 0, Differential Comment , Sodium 132 L, Potassium 3.4, Chloride 97 L, Carbon Dioxide 24.2, Anion Gap 11, BUN 28 H, Creatinine 0.90, Estim Creat Clear Calc 79.47, Est GFR (MDRD) Non-Af 88, BUN/Creatinine Ratio 31.7 H, Glucose 152 H, Calcium 8.3, Phosphorus 2.3 L, Magnesium 2.1 Micro: Microbiology 04/23/25 12:25 Sputum, Induced/Lukens Gram Stain - Final 04/23/25 12:25 Sputum, Induced/Lukens Respiratory Culture - Final Mixed normal respiratory randi. No Streptococcus pneumoniae, beta-hemolytic Streptococcus or Staphylococcus aureus isolated. ABG Data ABG results: ABG 04/27/25 07:49 Specimen Type ART Sample Site R Brach pH 7.47 H Bicarbonate Actual 27.3 H Total CO2 29 Base Excess 4 H O2 Saturation 91 L O2 % 75.0 ABG pCO2 37.9 ABG pO2 57 L Herson Test Positive Respiration Rate 14 O2 Delivery Device Adult Vent Vent Mode AC Tidal Volume 450.0 POC PEEP 8 Physical Exam Const Constitutional Narrative: intubated, sedated. RASS score is -4 Orientation / Consciousness: lethargic HEENT normocephalic, head/scalp atraumatic, moist oral mucous membranes and oropharynx normal Eyes EOMs intact bilaterally Lymph Lymphatic: no lymphedema noted Resp Resp Narrative: Moderately diminished breath sounds bibasilarly. Bibasilar crackles. intubated and sedated. RASS score is -4. FiO2 up to 75% Effort and Inspection: tachypneic Cardio regular rhythm, S1 normal heart sound, S2 normal heart sound and no murmurs Cardio Narrative: tachcyardic GI normal to inspection, nondistended, normoactive bowel sounds and soft to palpation Extremity normal capillary refill, no clubbing, cyanosis or edema and no calf tenderness General Extremity: no tenderness to palpation of joints or extremities Skin General Skin Exam: no breakdown Neuro Neuro Narrative: intubated, sedated. RASS score is -4 Psych Psych Narrative: intubated and sedated. Assessment & Plan Assessment/Plan (1) Acute respiratory failure with hypoxia and hypercapnia: (2) Alcohol withdrawal: (3) Left carotid stenosis: (4) Delirium tremens: PLAN: Plan #Acute hypoxic and hypercapnic respiratory failure * likely due to underlying COPD and respiratory depression from sedative meds as well as effect of DTs. * remains intubated. Failed spontaneous breathing trials. * On breathing treatments bronchodilators. Antibiotics not initiated as he does not have a fever and does not have elevated white cell count. * On Precedex and fentanyl. * Per critical care no plans for extubation until patient is out of the window for DTs. Now up to FiO2 of 75% * management as per critical care * #Carotid stenosis: S/p left carotid endarterectomy. Management as per primary service vascular surgery. On aspirin and cilostazol as well as Plavix #History of chronic alcohol use disorder with acute alcohol withdrawal and DTs * On alcohol withdrawal protocol phenobarbital. On thiamine, folic acid and Multi-Lavon. * Adjunctive meds for symptomatic relief. * #History of left ventricular outflow obstruction: * Will need to monitor closely to avoid hypotension. * Will benefit from phenylephrine if vasopressors are needed in light of the left ventricular outflow obstruction. * on metoprolol XL 50mg bid. #Hypertension: on metoprolol and lisinopril. #Nutrition: on tube feeds. * # DVT prophylaxis: Lovenox Charges/Coding Visit Charges Inpatient E&M: 44582 Subs Hosp L3
[2025-04-27] MEDS: Albumin Human 25% (50 mL) 12.5 GM/50 ML IV.SOLN IV (12:05)
[2025-04-27] MEDS: Pantoprazole Sodium 40 MG in 0.9% Normal Saline (100mL MB+) 100 ML 300 MG IV (12:06)
--- NOTE | 2025-04-27 14:51 | PCM.PN.SRG ---
Subjective Subjective He remains intubated, FiO2 requirement increased. Running a fever today at 101.3, increased secretions noted; sputum cultures are pending. Hgb stable. Kidney function improved today. Neuro exams have remained intact within limitations of his sedation. He is off vasopressor drip; started midodrine. Objective Data Objective Data Vital Signs: Vital Signs Temp Pulse Resp BP Pulse Ox O2 Del Method O2 Flow Rate 101.3 F H 131 H 33 H 181/58 H 94 Mechanical Ventilator 40 04/27/25 14:30 04/27/25 14:30 04/27/25 14:30 04/27/25 14:30 04/27/25 14:30 04/27/25 14:30 04/23/25 18:00 FiO2 75 04/27/25 14:30 Oxygen Flow Rate (L/min) 40 Oxygen Delivery Method Mechanical Ventilator Weight: 216 lb 11.43 oz Body Mass Index (BMI) 32.1 Intake & Output: Intake and Output for Last 24 Hours 04/25/25 04/26/25 04/27/25 23:59 23:59 23:59 Intake Total 691.17 / 826.17 3023.72 / 3050.22 1365.53 / 1365.53 Output Total 900 / 1000 1110 / 1110 600 / 600 Balance -208.83 / -173.83 1913.72 / 1940.22 765.53 / 765.53 Lab / Micro Data 04/27/25 07:03 04/27/25 07:03 Labs: Laboratory Results - last 24 hr 04/27/25 00:00: POC Glucose 143 H 04/27/25 07:03: WBC 9.2, RBC 3.29 L, Hgb 11.1 L, Hct 32.2 L, MCV 97.9 H, MCH 33.7 H, MCHC 34.5, RDW Std Deviation 47.2 H, RDW Coeff of Nicola 13.1, Plt Count 356, MPV 9.5, Immature Gran % (Auto) 0.800, Neut % (Auto) 75.0 H, Lymph % (Auto) 9.3 L, [place] % (Auto) 12.3 H, Eos % (Auto) 1.5, Baso % (Auto) 1.1 H, Absolute Neuts (auto) 6.9, Absolute Lymphs (auto) 0.85, Nucleated RBC % 0, Differential Comment , Sodium 132 L, Potassium 3.4, Chloride 97 L, Carbon Dioxide 24.2, Anion Gap 11, BUN 28 H, Creatinine 0.90, Estim Creat Clear Calc 79.47, Est GFR (MDRD) Non-Af 88, BUN/Creatinine Ratio 31.7 H, Glucose 152 H, Calcium 8.3, Phosphorus 2.3 L, Magnesium 2.1 Micro: Microbiology 04/23/25 12:25 Sputum, Induced/Lukens Gram Stain - Final 04/23/25 12:25 Sputum, Induced/Lukens Respiratory Culture - Final Mixed normal respiratory randi. No Streptococcus pneumoniae, beta-hemolytic Streptococcus or Staphylococcus aureus isolated. ABG Data ABG results: ABG 04/27/25 07:49 Specimen Type ART Sample Site R Brach pH 7.47 H Bicarbonate Actual 27.3 H Total CO2 29 Base Excess 4 H O2 Saturation 91 L O2 % 75.0 ABG pCO2 37.9 ABG pO2 57 L Herson Test Positive Respiration Rate 14 O2 Delivery Device Adult Vent Vent Mode AC Tidal Volume 450.0 POC PEEP 8 Physical Exam Const Constitutional Narrative: intubated, sedated HEENT head/scalp atraumatic, external ears normal and external nose normal Neck Neck Narrative: L neck incision site with skin glue intact, no dehiscence/drainage. Small dressing C/D/I to CHAR drain site, minimal dried drainage. Stable moderate swelling to the L neck incision site, soft to palpation. Resp Resp Narrative: intubated, on mechanical ventilation Cardio Rate: tachycardic Skin no rashes or lesions noted Neuro moves all extremities Neuro Narrative: sedated, more lethargic Sensorium / Orientation: other sedate Assessment & Plan Assessment/Plan (1) Left carotid stenosis: PLAN: Plan He is POD#6 from L CEA. Incision site satisfactory in appearance with stable postoperative swelling. Neuro exams have remained intact to this point; OK to d/c carotid neuro checks at this time. Appreciate hospitalist/playground aide management. Charges/Coding Procedures Integumentary [id number]: [id number] Global Visit
--- NOTE | 2025-04-27 16:30 | NURSING ---
after previous cárdenas dc, temp cárdenas placed w/out diff. There is a sm amt bloody drainage from meatus. urine cultures obtained from temp cárdenas, blood cultures x2 also drawn and all sent to lab
[2025-04-27] MEDS: Cefepime HCl 1 GM in 0.9% Normal Saline (50mL MB+) 50 ML IV ×2 (16:54→22:50)
--- NOTE | 2025-04-27 16:56 | PCM.RX.CS ---
Consult Antibiotic Management Pharmacy has been consulted to manage selected antibiotic: Vancomycin Type of Intervention Type of Consult: New start Suspected Infection Suspected Infection: Sepsis and Pneumonia Labs Labs: Sodium 132 mmol/L (133-145) L 04/27/25 07:03 Potassium 3.4 mmol/L (3.3-5.1) 04/27/25 07:03 Chloride 97 mmol/L (98-108) L 04/27/25 07:03 Carbon Dioxide 24.2 mmol/L (21.0-32.0) 04/27/25 07:03 Anion Gap 11 (5-15) 04/27/25 07:03 BUN 28 mg/dL (4-19) H 04/27/25 07:03 Creatinine 0.90 mg/dL (0.70-1.20) 04/27/25 07:03 Est GFR (MDRD) Non-Af 88 (>60) 04/27/25 07:03 BUN/Creatinine Ratio 31.7 RATIO (10-20) H 04/27/25 07:03 Glucose 152 mg/dL (70-99) H 04/27/25 07:03 Microbiology Microbiology: Microbiology 04/26/25 14:50 Sputum, Induced/Lukens Gram Stain - Final 04/26/25 12:15 Sputum, Induced/Lukens Gram Stain - Final 04/23/25 12:25 Sputum, Induced/Lukens Gram Stain - Final 04/23/25 12:25 Sputum, Induced/Lukens Respiratory Culture - Final Mixed normal respiratory randi. No Streptococcus pneumoniae, beta-hemolytic Streptococcus or Staphylococcus aureus isolated. Dosing Weight Weight used for dosin.7 kg Estimated Creatinine Clearance Estimated Creatinine Clearance: 79.47 Goal Trough Goal Trough: 15-20 mcg/mL Pharmacy Plan for Drug Dosing Pharmacy Plan for Drug Dosing: Pharmacy Service will continue to monitor and adjust dosing as required. NEW START IV VANCOMYCIN Consulting Physician: Dr. Moseley Indication: Sepsis/PNA Goal Trough: 15-20 SrCr: 0.9 CrCl: 79.47 Vancomycin Dose: 1250 mg Q12H with first dose 04/28 @ 0500 Pending Level: 04/29/25 @ 0430 Date/Time Labs Ordered Labs to be done on [date and time ordered]: 04/29/25 @ 0430
[2025-04-27] MEDS: Vancomycin HCl 1,750 MG in 0.9% Normal Saline (500mL Bag) 500 ML 250 MG IV (17:39)
[2025-04-27] MEDS: CHLORHEXIDINE GLUC 2% CLOTH 1 EACH TOWELETTE TOPICAL (23:01)
[2025-04-28] VITALS (36 sets, daily range): BP systolic 101–161; BP diastolic 39–85; PULSE 80–116; RESP 14–26; TEMP 37.2–38.6; O2SAT 90–97; BMI 31.6
[2025-04-28] MEDS: Acetylcysteine 800 MG/4 ML VIAL.NEB. INHALATION ×2 (01:50→06:47)
--- NOTE | 2025-04-28 04:45 | RAD_ITS ---
PROCEDURE: CHEST 1 VIEW (PORTABLE) 04/28/2025 REASON FOR EXAM: RESP FAILURE VENT TECHNIQUE: Frontal view of the chest. COMPARISON: April 26, 2025 FINDINGS: There is an ET tube in position, 4.8 cm above level of the bridgett. There is an enteric tube seen with its tip in the stomach. Heart size is upper normal. Central vascularity appears increased. There is perihilar infiltrate on the right and left. There is blunting of the costophrenic angle on the left consistent with a trace effusion. There is no pneumothorax. Aortic calcifications are noted. RAD/Chest 1 View (Portable) IMPRESSION: Central vascularity appears increased. There is perihilar infiltrate on the right and left. There is blunting of the costophrenic angle on the left consistent with a trace effusion. Reading Location: [facility]
[2025-04-28] MEDS: Vancomycin HCl 1,250 MG in 0.9% Normal Saline (250mL Bag) 250 ML 167 MG IV ×2 (05:09→16:51)
[2025-04-28] MEDS: 0.9% Saline Lock 10 ML Syringe IV ×4 (05:10→23:58)
--- NOTE | 2025-04-28 05:47 | PCM.PN.INT ---
Assessment & Plan Assessment/Plan (1) Alcohol withdrawal: (2) Acute respiratory failure with hypoxia and hypercapnia: PLAN: Plan RECOMMENDATIONS: 1. Continue assist-control mode of mechanical ventilation. Continue to wean FiO2 and PEEP as tolerated. 2. Discontinue Versed infusion. Okay to initiate propofol, if needed, for sedation purposes. Continue fentanyl for pain control. 3. Continue beta-asael as ordered. 4. Continue antimicrobials. 5. Continue bronchodilator therapy. 6. Aggressive electrolyte repletion as needed. 7. Continue nutritional support via tube feeding. 8. Continue appropriate GI and DVT prophylaxis. IMPRESSIONS: 1. Acute hypoxemic and hypercapnic respiratory failure Most likely secondary to underlying COPD coupled with inability to compensate for metabolic demands of acute alcohol withdrawal and respiratory depression induced by sedative medication administration. Accordingly, the patient was emergently intubated on April 23. His hospital course has been complicated by the development of Streptococcus pneumonia, for which he remains on antimicrobials. I would recommend that the patient's Versed infusion be discontinued. He is outside of the window for alcohol withdrawal. Therefore, propofol can be utilized for sedation, if needed. Continue fentanyl for pain control. Continue to wean FiO2 and PEEP to maintain saturations at or above 90%. 2. Acute alcohol withdrawal The patient was ultimately intubated as a consequence of his acute alcohol withdrawal. However, with supportive care, he is now outside of his window for acute alcohol withdrawal symptoms. Continue supportive care as noted above. 3. History of LVH with LVOT Continue supportive care as noted above. Caution needs to be exercised to avoid hypotension as this will increase his left ventricular outflow gradient. If vasopressors are needed, recommend initiation of phenylephrine. Recommend continuation of beta-asael for heart rate control. 4. History of bilateral carotid artery stenosis status post left carotid endarterectomy Continue routine postoperative care per vascular surgery recommendations. 5. History of chronic tobacco and alcohol dependency Complicates care, management, recovery and prognosis. Continue supportive measures as noted above. Continue tube feeding for nutritional support. Monitor electrolytes closely for evidence of refeeding syndrome. TIME: 35 minutes of critical care time, independent of procedures, was spent addressing the patient's acute hypoxemic and hypercapnic respiratory failure, acute alcohol withdrawal, review of all data and collaboration with the care team. Subjective Subjective The patient was seen and examined at the bedside this morning. Events from the last 24 hours have been reviewed. Over the weekend, the patient developed a fever and increasing sputum production, for which he was placed on antimicrobials. The patient sedation was also changed over the weekend to include a continuous Versed infusion. He is currently documented to be overall net +5.3 L for the hospitalization. He has been tolerant of tube feeding. He is not currently requiring vasopressor support. Arterial blood gas this morning was notable for a pH of 7.51 with a pCO2 of 39 and pO2 of 57. Objective Data Objective Data The patient's most recent lab work, culture data and imaging studies have all been personally reviewed. Sputum culture is demonstrating growth of group C Streptococcus. Vital Signs: Vital Signs Temp Pulse Resp BP Pulse Ox O2 Del Method O2 Flow Rate 101.1 F H 115 H 22 H 112/53 L 90 Mechanical Ventilator 40 04/28/25 05:00 04/28/25 05:00 04/28/25 05:00 04/28/25 05:00 04/28/25 05:00 04/28/25 05:00 04/23/25 18:00 FiO2 75 04/28/25 05:00 Oxygen Flow Rate (L/min) 40 Oxygen Delivery Method Mechanical Ventilator Weight: 213 lb 6.519 oz Body Mass Index (BMI) 31.6 Intake & Output: Intake and Output for Last 24 Hours 04/26/25 04/27/25 04/28/25 23:59 23:59 23:59 Intake Total 3023.72 / 3050.22 2442.03 / 2453.53 459.0 / 459.0 Output Total 1110 / 1110 2350 / 2350 500 / 500 Balance 1913.72 / 1940.22 92.03 / 103.53 -41.0 / -41.0 Lab / Micro Data Attestation: I reviewed the patient's lab results. 04/27/25 07:03 04/27/25 07:03 Labs: Laboratory Results - last 24 hr 04/27/25 07:03: WBC 9.2, RBC 3.29 L, Hgb 11.1 L, Hct 32.2 L, MCV 97.9 H, MCH 33.7 H, MCHC 34.5, RDW Std Deviation 47.2 H, RDW Coeff of Nicola 13.1, Plt Count 356, MPV 9.5, Immature Gran % (Auto) 0.800, Neut % (Auto) 75.0 H, Lymph % (Auto) 9.3 L, Adams % (Auto) 12.3 H, Eos % (Auto) 1.5, Baso % (Auto) 1.1 H, Absolute Neuts (auto) 6.9, Absolute Lymphs (auto) 0.85, Nucleated RBC % 0, Differential Comment , Sodium 132 L, Potassium 3.4, Chloride 97 L, Carbon Dioxide 24.2, Anion Gap 11, BUN 28 H, Creatinine 0.90, Estim Creat Clear Calc 79.47, Est GFR (MDRD) Non-Af 88, BUN/Creatinine Ratio 31.7 H, Glucose 152 H, Calcium 8.3, Phosphorus 2.3 L, Magnesium 2.1 Micro: Microbiology 04/26/25 14:50 Sputum, Induced/Lukens Gram Stain - Final 04/26/25 12:15 Sputum, Induced/Lukens Gram Stain - Final 04/23/25 12:25 Sputum, Induced/Lukens Gram Stain - Final 04/23/25 12:25 Sputum, Induced/Lukens Respiratory Culture - Final Mixed normal respiratory randi. No Streptococcus pneumoniae, beta-hemolytic Streptococcus or Staphylococcus aureus isolated. ABG Data ABG results: ABG 04/27/25 07:49 Specimen Type ART Sample Site R Brach pH 7.47 H Bicarbonate Actual 27.3 H Total CO2 29 Base Excess 4 H O2 Saturation 91 L O2 % 75.0 ABG pCO2 37.9 ABG pO2 57 L Herson Test Positive Respiration Rate 14 O2 Delivery Device Adult Vent Vent Mode AC Tidal Volume 450.0 POC PEEP 8 Radiography Diagnostic Testing: Radiology Impression Chest X-Ray 04/24/25 08:28 IMPRESSION: The support tubes are in good position. Improved aeration of the left lung base. Reading Location: [place] [id number] Physical Exam Const no apparent distress Constitutional Narrative: Intubated and mechanically ventilated. General Appearance: patient mechanically ventilated HEENT normocephalic and head/scalp atraumatic Mouth: endotracheal tube in place and OG tube in place Eyes PERRL, EOMs intact bilaterally and conjunctivae normal Neck supple General: trachea midline Chest inspection of chest normal Resp Auscultation: diminished lung sounds; Negative for rales, rhonchi or wheezes Cardio regular rate, regular rhythm, S1 normal heart sound and S2 normal heart sound GI normal to inspection, nondistended, normoactive bowel sounds Extremity no clubbing, cyanosis or edema Skin no rashes or lesions noted Neuro Sensorium / Orientation: sedated on vent Charges/Coding Procedures Hospitalists Procedures: 03493 Critical Care 1st Hr
[2025-04-28] MEDS: Vital High Protein 1,000 ML 50 ML GT (06:56)
[2025-04-28] MEDS: Cefepime HCl 1 GM in 0.9% Normal Saline (50mL MB+) 50 ML IV ×3 (07:04→21:59)
[2025-04-28] MEDS: 0.9% Normal Saline (250mL Bag) 250 ML 15 ML IV ×2 (07:10→13:15)
[2025-04-28] MEDS: fentaNYL drip 100 ML 7.5 MCG CONT INF (07:59)
[2025-04-28 08:41] LABS: Base Excess 8 mmol/L (-2 to +2); FI02 75.0; PEEP 8; PO2 57 mmHG (75-100); RR 14; SITE L Radial; SO2 92 % (94-98)
--- NOTE | 2025-04-28 10:20 | PCM.PN.SRG ---
Subjective Subjective Increased vent requirements over weekend, febrile, now with strep in sputum. Atbx initiated yesterday. Remains sedated. Now on midodrine for BP support. Objective Data Objective Data Sedated, on vent, NAD Sinus Tachycardia abd soft, NT,ND trace edema inc C/D/I, no erythema Vital Signs: Vital Signs Temp Pulse Resp BP Pulse Ox O2 Del Method O2 Flow Rate 100.9 F H 112 H 20 H 142/52 H 93 Mechanical Ventilator 40 04/28/25 07:00 04/28/25 08:44 04/28/25 08:44 04/28/25 07:00 04/28/25 08:44 04/28/25 08:30 04/23/25 18:00 FiO2 75 04/28/25 08:44 Oxygen Flow Rate (L/min) 40 Oxygen Delivery Method Mechanical Ventilator Weight: 213 lb 6.519 oz Body Mass Index (BMI) 31.6 Intake & Output: Intake and Output for Last 24 Hours 04/26/25 04/27/25 04/28/25 23:59 23:59 23:59 Intake Total 3023.72 / 3050.22 2442.03 / 2453.53 977.67 / 977.67 Output Total 1110 / 1110 2350 / 2350 500 / 500 Balance 1913.72 / 1940.22 92.03 / 103.53 477.67 / 477.67 Lab / Micro Data 04/27/25 07:03 04/27/25 07:03 Micro: Microbiology 04/26/25 14:50 Sputum, Induced/Lukens Gram Stain - Final 04/26/25 14:50 Sputum, Induced/Lukens Respiratory Culture - Final Streptococcus group C 04/26/25 12:15 Sputum, Induced/Lukens Gram Stain - Final 04/26/25 12:15 Sputum, Induced/Lukens Respiratory Culture - Final Streptococcus group C 04/23/25 12:25 Sputum, Induced/Lukens Gram Stain - Final 04/23/25 12:25 Sputum, Induced/Lukens Respiratory Culture - Final Mixed normal respiratory randi. No Streptococcus pneumoniae, beta-hemolytic Streptococcus or Staphylococcus aureus isolated. ABG Data ABG results: ABG 04/28/25 08:37 Specimen Type ART Sample Site L Radial pH 7.51 H Bicarbonate Actual 31.2 H Total CO2 32 Base Excess 8 H O2 Saturation 92 L O2 % 75.0 ABG pCO2 39.4 ABG pO2 57 L Respiration Rate 14 O2 Delivery Device Adult Vent Vent Mode AC Tidal Volume 450.0 POC PEEP 8 Radiography Diagnostic Testing: Radiology Impression Chest X-Ray 04/28/25 04:45 IMPRESSION: Central vascularity appears increased. There is perihilar infiltrate on the right and left. There is blunting of the costophrenic angle on the left consistent with a trace effusion. Reading Location: [facility] Assessment & Plan Assessment/Plan (1) Left carotid stenosis: PLAN: POD # 7 left CEA complicated by alcohol withdrawal, respiratory failure requiring intubation, now pneumonia -atbx/vent per ICU -cont TF -will likely need to wean midodrine as sedation comes off -no focal deficits when arousable -DVT/GI prophylaxis
[2025-04-28] MEDS: Chlorhexidine 15 ML PO ×2 (10:24→21:59)
[2025-04-28] MEDS: Thiamine Hydrochloride 100 MG Tablet PO (10:26)
[2025-04-28] MEDS: Propofol 10MG/Ml 1,000 MG/100 ML Bottle 5.8 MG CONT INF (10:27)
[2025-04-28] MEDS: Potassium Phosphate 30 MM in 0.9% Normal Saline (250mL Bag) 250 ML 55 MM IV (10:30)
--- NOTE | 2025-04-28 12:29 | PCM.HOSP.N ---
Hospitalist Note The hospitalist service will follow peripherally while in ICU-status followed by CCM.
[2025-04-28] MEDS: Pantoprazole Sodium 40 MG in 0.9% Normal Saline (100mL MB+) 100 ML 300 MG IV (13:15)
--- NOTE | 2025-04-28 16:14 | CASEMGMT ---
Social Work FERNANDO is in the patients chart. NAVEEN Betts
[2025-04-28] MEDS: Acetaminophen 650 MG/20 ML UDC GT (16:49)
[2025-04-28] MEDS: Propofol 10MG/Ml 1,000 MG/100 ML Bottle 8.7 MG CONT INF ×2 (17:38→22:38)
[2025-04-28] MEDS: fentaNYL drip 100 ML 10 MCG CONT INF (18:16)
[2025-04-29] VITALS (39 sets, daily range): BP systolic 137–196; BP diastolic 45–84; PULSE 58–124; RESP 14–26; TEMP 37.6–38.4; O2SAT 88–120; BMI 31.8
[2025-04-29] MEDS: Vital High Protein 1,000 ML 55 ML GT (02:22)
[2025-04-29 04:42] LABS: Hematocrit 30.5 % (40-54); Hemoglobin 10.3 g/dL (13.0-16.5); Immature Granulocytes Count 0.260 X10^3/uL (0.0-0.0); Mean Corp Hgb Conc 33.8 g/dL (32-36); Mean Corpuscular Volume 99.3 fL (80-94); Mean Platelet Vol. 9.9 fl (6.2-12.0); NRBC Flagged by Analyzer 0 % (0-5); Platelet Count 423 K/mm3 (150-450); RBC Distribution Width CV 14.1 % (11.6-14.6); RBC Distribution Width SD 51.5 fl (35.1-43.9); Red Blood Count 3.07 M/mm3 (4.6-6.2); White Blood Count 13.0 K/mm3 (4.4-11.0)
[2025-04-29 04:54] LABS: Vancomycin, Trough Level 12.3 ug/mL (5.0-15.0)
[2025-04-29] MEDS: fentaNYL drip 100 ML 10 MCG CONT INF ×2 (04:57→13:35)
[2025-04-29] MEDS: Cefepime HCl 1 GM in 0.9% Normal Saline (50mL MB+) 50 ML IV (05:02)
--- NOTE | 2025-04-29 05:20 | RAD_ITS ---
PROCEDURE: CHEST 1 VIEW (PORTABLE) 04/29/2025 REASON FOR EXAM: RESPIRATORY FAILURE TECHNIQUE: Frontal view of the chest. COMPARISON: April 28, 2025 FINDINGS: There is an ET tube in position with its tip 4.4 cm above the level of the bridgett. There is an enteric tube seen with its tip below the field of view of this exam. Heart size is mildly enlarged. Central vascularity appears increased. There is consolidation in the right mid and lower lung with infiltrate in the left perihilar region. There are moderate bilateral effusions, increased. There is no pneumothorax. Aortic calcifications are noted. There is no acute bony abnormality. RAD/Chest 1 View (Portable) IMPRESSION: Tubes and lines in position. Heart size is mildly enlarged. Central vascularity appears increased. There is consolidation in the right mid and lower lung with infiltrate in the l eft perihilar region. Reading Location: [facility]
[2025-04-29 05:29] LABS: Magnesium 2.0 mg/dL (1.5-2.2)
[2025-04-29 05:31] LABS: AST(SGOT) 401 U/L (<=37); Alanine Aminotransfer ALT/SGPT 201 U/L (<=46); Albumin, Serum 2.6 g/dL (3.4-4.8); Alkaline Phosphatase 115 U/L (40-129); Anion Gap 13 (5-15); BUN 26 mg/dL (4-19); BUN/Creat Ratio 31.3 RATIO (10-20); Calcium,Total 8.6 mg/dL (7.6-11.0); Carbon Dioxide 27.5 mmol/L (21.0-32.0); Chloride 99 mmol/L (98-108); Estimated Creatinine Clearance 85.02 ml/min (50-250); Globulin 3.8 g/dL (2.2-4.2); Glucose 139 mg/dL (70-99); Potassium 3.6 mmol/L (3.3-5.1)
--- NOTE | 2025-04-29 05:36 | PN.CC_ITS ---
Assessment & Plan Assessment/Plan (1) Alcohol withdrawal: (2) Acute respiratory failure with hypoxia and hypercapnia: PLAN: Plan RECOMMENDATIONS: 1. Continue assist-control mode of mechanical ventilation. Continue to wean FiO2 and PEEP as tolerated. 2. Continue propofol and fentanyl. Goal to maintain RASS of -1 to 1. 3. Discontinue midodrine. 4. Ongoing diuresis as tolerated by hemodynamics and renal function. 5. Continue beta-asael as ordered. 6. Continue antimicrobials. 7. Continue bronchodilator therapy. 8. Continue nutritional support via tube feeding. 9. Continue appropriate GI and DVT prophylaxis. IMPRESSIONS: 1. Acute hypoxemic and hypercapnic respiratory failure Most likely secondary to underlying COPD coupled with inability to compensate for metabolic demands of acute alcohol withdrawal and respiratory depression induced by sedative medication administration. Accordingly, the patient was emergently intubated on April 23. His hospital course has been complicated by the development of Streptococcus pneumonia, for which he remains on antimicrobials. The patient will be continued on bronchodilator therapy, with a goal to wean FiO2 and PEEP to maintain saturations at or above 90%. In addition, given his net positive volume status, we will continue attempts at diuresis, as tolerated by hemodynamics and renal function. The patient will be continued on tube feeding for nutritional support. 2. Acute alcohol withdrawal The patient was ultimately intubated as a consequence of his acute alcohol withdrawal. However, with supportive care, he is now outside of his window for acute alcohol withdrawal symptoms. Continue supportive care as noted above. 3. History of LVH with LVOT Continue supportive care as noted above. Caution needs to be exercised to avoid hypotension as this will increase his left ventricular outflow gradient. If vasopressors are needed, recommend initiation of phenylephrine. Recommend continuation of beta-asael for heart rate control. 4. History of bilateral carotid artery stenosis status post left carotid endarterectomy Continue routine postoperative care per vascular surgery recommendations. 5. History of chronic tobacco and alcohol dependency Complicates care, management, recovery and prognosis. Continue supportive measures as noted above. Continue tube feeding for nutritional support. Monitor electrolytes closely for evidence of refeeding syndrome. TIME: 37 minutes of critical care time, independent of procedures, was spent addressing the patient's acute hypoxemic and hypercapnic respiratory failure, acute alcohol withdrawal, review of all data and collaboration with the care team. Subjective Subjective The patient was seen and examined at the bedside this morning. Events from the last 24 hours have been reviewed. The patient currently has a low-grade fever but remains otherwise hemodynamically stable on assist-control mode of mechanical ventilation with an FiO2 requirement of 60% and PEEP of 8. The patient is currently documented to be overall net +6.7 L for the hospitalization. White blood cell count is elevated at 13,000. Hemoglobin was noted to be 10.3 g/dL with a platelet count of 123,000. Arterial blood gas this morning was notable for a pH of 7.48 with a pCO2 of 40 and pO2 of 49. Chemistry profile was unrevealing. AST and ALT are increased at 401 and 201, respectively. The patient has been tolerant of tube feeding. Endotracheal tube secretions continue to be an issue, according to nursing staff. Objective Data Objective Data The patient's most recent lab work, culture data and imaging studies have all been personally reviewed. Sputum culture is demonstrating growth of group C Streptococcus. Vital Signs: Vital Signs Temp Pulse Resp BP Pulse Ox O2 Del Method O2 Flow Rate 99.9 F H 106 H 20 H 158/51 H 94 Mechanical Ventilator 40 04/29/25 02:00 04/29/25 03:42 04/29/25 02:00 04/29/25 02:00 04/29/25 02:00 04/29/25 03:46 04/23/25 18:00 FiO2 70 04/29/25 03:46 Oxygen Flow Rate (L/min) 40 Oxygen Delivery Method Mechanical Ventilator Weight: 216 lb 0.848 oz Body Mass Index (BMI) 31.8 Intake & Output: Intake and Output for Last 24 Hours 04/27/25 04/28/25 04/29/25 23:59 23:59 23:59 Intake Total 2442.03 / 2453.53 3002.93 / 3071.63 523.37 / 523.37 Output Total 2350 / 2350 1950 / 1950 Balance 92.03 / 103.53 1052.93 / 1121.63 523.37 / 523.37 Lab / Micro Data Attestation: I reviewed the patient's lab results. 04/29/25 04:15 04/29/25 04:15 Labs: Laboratory Results - last 24 hr 04/28/25 11:31: POC Glucose 132 H 04/28/25 16:57: POC Glucose 124 H 04/29/25 04:15: WBC 13.0 H, RBC 3.07 L, Hgb 10.3 L, Hct 30.5 L, MCV 99.3 H, MCH 33.6 H, MCHC 33.8, RDW Std Deviation 51.5 H, RDW Coeff of Nicola 14.1, Plt Count 423, MPV 9.9, Immature Gran % (Auto) 2.000 H, Neut % (Auto) 78.9 H, Lymph % (Auto) 7.1 L, [place] % (Auto) 8.9, Eos % (Auto) 2.5, Baso % (Auto) 0.6, Absolute Neuts (auto) 10.2 H, Absolute Lymphs (auto) 0.92, Nucleated RBC % 0, Sodium 140, Potassium 3.6, Chloride 99, Carbon Dioxide 27.5, Anion Gap 13, BUN 26 H, Creatinine 0.84, Estim Creat Clear Calc 85.02, Est GFR (MDRD) Non-Af 90, B UN/Creatinine Ratio 31.3 H, Glucose 139 H, Calcium 8.6, Phosphorus 2.8, Magnesium 2.0, Total Bilirubin 0.43, AST 401 H, ALT 201 H, Alkaline Phosphatase 115, Total Protein 6.4, Albumin 2.6 L, Globulin 3.8, Albumin/Globulin Ratio 0.7 L, Vancomycin Trough 12.3 Micro: Microbiology 04/26/25 14:50 Sputum, Induced/Lukens Gram Stain - Final 04/26/25 14:50 Sputum, Induced/Lukens Respiratory Culture - Final Streptococcus group C 04/26/25 12:15 Sputum, Induced/Lukens Gram Stain - Final 04/26/25 12:15 Sputum, Induced/Lukens Respiratory Culture - Final Streptococcus group C 04/23/25 12:25 Sputum, Induced/Lukens Gram Stain - Final 04/23/25 12:25 Sputum, Induced/Lukens Respiratory Culture - Final Mixed normal respiratory randi. No Streptococcus pneumoniae, beta-hemolytic Streptococcus or Staphylococcus aureus isolated. ABG Data ABG results: ABG 04/28/25 08:37 Specimen Type ART Sample Site L Radial pH 7.51 H Bicarbonate Actual 31.2 H Total CO2 32 Base Excess 8 H O2 Saturation 92 L O2 % 75.0 ABG pCO2 39.4 ABG pO2 57 L Respiration Rate 14 O2 Delivery Device Adult Vent Vent Mode AC Tidal Volume 450.0 POC PEEP 8 Radiography Diagnostic Testing: Radiology Impression Chest X-Ray 04/28/25 04:45 IMPRESSION: Central vascularity appears increased. There is perihilar infiltrate on the right and left. There is blunting of the costophrenic angle on the left consistent with a trace effusion. Reading Location: [facility] Physical Exam Const no apparent distress Constitutional Narrative: Intubated and mechanically ventilated. General Appearance: ill appearing and patient mechanically ventilated HEENT normocephalic and head/scalp atraumatic Mouth: endotracheal tube in place and OG tube in place Eyes PERRL, EOMs intact bilaterally and conjunctivae normal Neck supple General: trachea midline Chest inspection of chest normal Resp Auscultation: rhonchi and diminished lung sounds; Negative for rales or wheezes Cardio regular rate, regular rhythm, S1 normal heart sound and S2 normal heart sound GI normal to inspection, nondistended, normoactive bowel sounds Extremity General Extremity: edema; Negative for clubbing Skin no rashes or lesions noted Neuro Sensorium / Orientation: sedated on vent Charges/Coding Procedures Hospitalists Procedures: [id number] Critical Care 1st Hr
[2025-04-29 05:44] LABS: Allen Test Positive; Base Excess 7 mmol/L (-2 to +2); FI02 70.0; PEEP 8; PO2 49 mmHG (75-100); RR 14; SITE L Radial; SO2 87 % (94-98)
--- NOTE | 2025-04-29 05:53 | PCM.RX.CS ---
Consult Antibiotic Management Pharmacy has been consulted to manage selected antibiotic: Vancomycin Type of Intervention Type of Consult: Follow-up Labs Labs: Sodium 140 mmol/L (133-145) 04/29/25 04:15 Potassium 3.6 mmol/L (3.3-5.1) 04/29/25 04:15 Chloride 99 mmol/L (98-108) 04/29/25 04:15 Carbon Dioxide 27.5 mmol/L (21.0-32.0) 04/29/25 04:15 Anion Gap 13 (5-15) 04/29/25 04:15 BUN 26 mg/dL (4-19) H 04/29/25 04:15 Creatinine 0.84 mg/dL (0.70-1.20) 04/29/25 04:15 Est GFR (MDRD) Non-Af 90 (>60) 04/29/25 04:15 BUN/Creatinine Ratio 31.3 RATIO (10-20) H 04/29/25 04:15 Glucose 139 mg/dL (70-99) H 04/29/25 04:15 Vancomycin Trough 12.3 ug/mL (5.0-15.0) 04/29/25 04:15 Microbiology Microbiology: Microbiology 04/26/25 14:50 Sputum, Induced/Lukens Gram Stain - Final 04/26/25 14:50 Sputum, Induced/Lukens Respiratory Culture - Final Streptococcus group C 04/26/25 12:15 Sputum, Induced/Lukens Gram Stain - Final 04/26/25 12:15 Sputum, Induced/Lukens Respiratory Culture - Final Streptococcus group C 04/23/25 12:25 Sputum, Induced/Lukens Gram Stain - Final 04/23/25 12:25 Sputum, Induced/Lukens Respiratory Culture - Final Mixed normal respiratory randi. No Streptococcus pneumoniae, beta-hemolytic Streptococcus or Staphylococcus aureus isolated. Goal Trough Goal Trough: 15-20 mcg/mL Pharmacy Plan for Drug Dosing Pharmacy Plan for Drug Dosing: Pharmacy Service will continue to monitor and adjust dosing as required. TROUGH 12.3 @ 11.5 HOURS. INCREASE TO 1500MG Q12H AND DRAW TROUGH PRIOR TO 4TH DOSE Follow-Up Labs Follow-Up Labs: Trough: Vancomycin Date/Time Labs Ordered Labs to be done on [date and time ordered]: 04/30 @ 6492
[2025-04-29] MEDS: Vancomycin HCl 1,500 MG in 0.9% Normal Saline (500mL Bag) 500 ML 250 MG IV (06:02)
[2025-04-29] MEDS: CHLORHEXIDINE GLUC 2% CLOTH 1 EACH TOWELETTE TOPICAL ×2 (06:02→21:36)
[2025-04-29] MEDS: Propofol 10MG/Ml 1,000 MG/100 ML Bottle 8.7 MG CONT INF ×2 (06:08→15:31)
--- NOTE | 2025-04-29 08:03 | PCM.PN.SRG ---
Subjective Subjective He remains sedated. Fever is reducing and vent settings are reducing a bit. He is off vasopressor drips and midodrine. He remains on antibiotics for pneumonia, still with significant secretions. Objective Data Objective Data Vital Signs: Vital Signs Temp Pulse Resp BP Pulse Ox O2 Del Method O2 Flow Rate 100.0 F H 104 H 20 H 169/62 H 95 Mechanical Ventilator 40 04/29/25 07:00 04/29/25 07:00 04/29/25 07:00 04/29/25 07:00 04/29/25 07:00 04/29/25 07:45 04/23/25 18:00 FiO2 70 04/29/25 07:00 Oxygen Flow Rate (L/min) 40 Oxygen Delivery Method Mechanical Ventilator Weight: 216 lb 0.848 oz Body Mass Index (BMI) 31.8 Intake & Output: Intake and Output for Last 24 Hours 04/27/25 04/28/25 04/29/25 23:59 23:59 23:59 Intake Total 2442.03 / 2453.53 3002.93 / 3071.63 776.02 / 776.02 Output Total 2350 / 2350 1950 / 1950 450 / 450 Balance 92.03 / 103.53 1052.93 / 1121.63 326.02 / 326.02 Lab / Micro Data 04/29/25 04:15 04/29/25 04:15 Labs: Laboratory Results - last 24 hr 04/28/25 11:31: POC Glucose 132 H 04/28/25 16:57: POC Glucose 124 H 04/29/25 04:15: WBC 13.0 H, RBC 3.07 L, Hgb 10.3 L, Hct 30.5 L, MCV 99.3 H, MCH 33.6 H, MCHC 33.8, RDW Std Deviation 51.5 H, RDW Coeff of Nicola 14.1, Plt Count 423, MPV 9.9, Immature Gran % (Auto) 2.000 H, Neut % (Auto) 78.9 H, Lymph % (Auto) 7.1 L, Evans % (Auto) 8.9, Eos % (Auto) 2.5, Baso % (Auto) 0.6, Absolute Neuts (auto) 10.2 H, Absolute Lymphs (auto) 0.92, Nucleated RBC % 0, Sodium 140, Potassium 3.6, Chloride 99, Carbon Dioxide 27.5, Anion Gap 13, BUN 26 H, Creatinine 0.84, Estim Creat Clear Calc 85.02, Est GFR (MDRD) Non-Af 90, BUN/Creatinine Ratio 31.3 H, Glucose 139 H, Calcium 8.6, Phosphorus 2.8, Magnesium 2.0, Total Bilirubin 0.43, AST 401 H, ALT 201 H, Alkaline Phosphatase 115, Total Protein 6.4, Albumin 2.6 L, Globulin 3.8, Albumin/Globulin Ratio 0.7 L, Vancomycin Trough 12.3 Micro: Microbiology 04/26/25 14:50 Sputum, Induced/Lukens Gram Stain - Final 04/26/25 14:50 Sputum, Induced/Lukens Respiratory Culture - Final Streptococcus group C 04/26/25 12:15 Sputum, Induced/Lukens Gram Stain - Final 04/26/25 12:15 Sputum, Induced/Lukens Respiratory Culture - Final Streptococcus group C 04/23/25 12:25 Sputum, Induced/Lukens Gram Stain - Final 04/23/25 12:25 Sputum, Induced/Lukens Respiratory Culture - Final Mixed normal respiratory randi. No Streptococcus pneumoniae, beta-hemolytic Streptococcus or Staphylococcus aureus isolated. ABG Data ABG results: ABG 04/28/25 04/29/25 08:37 05:41 Specimen Type ART ART Sample Site L Radial L Radial pH 7.51 H 7.48 H Bicarbonate Actual 31.2 H 30.3 H Total CO2 32 32 Base Excess 8 H 7 H O2 Saturation 92 L 87 L O2 % 75.0 70.0 ABG pCO2 39.4 40.4 ABG pO2 57 L 49 L Herson Test Positive Respiration Rate 14 14 O2 Delivery Device Adult Vent Adult Vent Vent Mode AC AC Tidal Volume 450.0 450.0 POC PEEP 8 8 Radiography Diagnostic Testing: Radiology Impression Chest X-Ray 04/29/25 05:20 IMPRESSION: Tubes and lines in position. Heart size is mildly enlarged. Central vascularity appears increased. There is consolidation in the right mid and lower lung with infiltrate in the left perihilar region. [facility] Exam Const Constitutional Narrative: intubated, sedated HEENT head/scalp atraumatic, external ears normal and external nose normal Neck Neck Narrative: L neck incision site with skin glue intact, no dehiscence/drainage. Mild swelling to the L neck incision site, soft to palpation. Resp Resp Narrative: intubated, on mechanical ventilation Cardio Rate: tachycardic Skin no rashes or lesions noted Neuro moves all extremities Neuro Narrative: sedated, more lethargic Sensorium / Orientation: other sedate Assessment & Plan Assessment/Plan (1) Left carotid stenosis: PLAN: POD # 8 left CEA complicated by alcohol withdrawal, respiratory failure requiring intubation, now pneumonia -atbx/vent per ICU -no focal deficits when arousable -DVT/GI prophylaxis Charges/Coding Procedures Integumentary [id number]: [id number] Global Visit
[2025-04-29] MEDS: Thiamine Hydrochloride 100 MG Tablet PO (08:08)
--- NOTE | 2025-04-29 08:43 | US_ITS ---
PROCEDURE: LIVER 04/29/2025 REASON FOR EXAM: ELEVATED TRANSAMINASES COMPARISON: none FINDINGS: GALLBLADDER: No gallstones. no gallbladder wall thickening or pericholecystic fluid. Negative Rodriguez sign. COMMON BILE DUCT: Measures 3 mm. No intrahepatic biliary dilatation. LIVER: Hepatomegaly to 21 cm. Increased echotexture. No definite hepatic mass. RIGHT KIDNEY: Normal in size and echogenicity. No mass. No urinary stones. No hydronephrosis. Cysts within the right kidney measures 2.9 x 2.8 x 2.1 cm. Pancreas: Within normal limits Free fluid noted. US/Liver IMPRESSION: Hepatomegaly and hepatic steatosis. Free fluid/ascites noted. No acute cholecystitis. Reading Location: [id number]
[2025-04-29] MEDS: Senna/Docusate Sodium 1 Tablet 2 TABLET PO ×2 (08:57→21:38)
[2025-04-29] MEDS: Polyethylene Glycol 3350 17 GM PACKET PO (08:57)
[2025-04-29] MEDS: Chlorhexidine 15 ML PO ×2 (08:58→21:37)
[2025-04-29] MEDS: Pantoprazole Sodium 40 MG in 0.9% Normal Saline (100mL MB+) 100 ML 300 MG IV (11:03)
[2025-04-29] MEDS: Scopolamine 1mg/72hr Patch 1 PATCH TD (11:04)
[2025-04-29] MEDS: Cefazolin 1 GM/50 ML BAG IV ×2 (13:32→21:29)
[2025-04-29] MEDS: Acetaminophen 650 MG/20 ML UDC GT (16:36)
[2025-04-30] VITALS (35 sets, daily range): BP systolic 108–180; BP diastolic 46–64; PULSE 75–125; RESP 14–24; TEMP 36.9–38; O2SAT 89–95; BMI 31.8
[2025-04-30] MEDS: Propofol 10MG/Ml 1,000 MG/100 ML Bottle 11.6 MG CONT INF
[2025-04-30] MEDS: fentaNYL drip 100 ML 12.5 MCG CONT INF
[2025-04-30] MEDS: 0.9% Saline Lock 10 ML Syringe IV ×2 (00:01→05:11)
[2025-04-30] MEDS: Vital High Protein 1,000 ML 55 ML GT ×2 (01:28→20:51)
[2025-04-30] MEDS: Propofol 10MG/Ml 1,000 MG/100 ML Bottle 14.5 MG CONT INF (05:02)
[2025-04-30] MEDS: Cefazolin 1 GM/50 ML BAG IV ×3 (05:12→21:02)
--- NOTE | 2025-04-30 05:35 | PN.CC_ITS ---
Assessment & Plan Assessment/Plan (1) Alcohol withdrawal: (2) Acute respiratory failure with hypoxia and hypercapnia: PLAN: Plan RECOMMENDATIONS: 1. Continue assist-control mode of mechanical ventilation. Continue to wean FiO2 and PEEP as tolerated. 2. Continue propofol and fentanyl. Goal to maintain RASS of -1 to 1. 3. Consultation placed to ENT and GI for tracheostomy and PEG tube placement 4. Continue gentle diuresis. Will administer Diamox today as well. 5. Continue beta-asael as ordered. 6. Continue antimicrobials. 7. Continue bronchodilator therapy and corticosteroids. 8. Continue nutritional support via tube feeding. 9. Continue appropriate GI and DVT prophylaxis. IMPRESSIONS: 1. Acute hypoxemic and hypercapnic respiratory failure Most likely secondary to underlying COPD coupled with inability to compensate for metabolic demands of acute alcohol withdrawal and respiratory depression induced by sedative medication administration. Accordingly, the patient was emergently intubated on April 23. His hospital course has been complicated by the development of Streptococcus pneumonia, for which he remains on antimicrobials. The patient will be continued on bronchodilator therapy and corticosteroids, with a goal to wean FiO2 and PEEP to maintain saturations at or above 90%. In addition, given his net positive volume status, we will continue attempts at diuresis, as tolerated by hemodynamics and renal function. Given the contraction alkalosis noted today, will administer Diamox. The patient will be continued on tube feeding for nutritional support. Given that the patient is ventilator day #8 and it seems highly unlikely that he will be able to be successfully extubated, will place consultation to ENT and gastroenterology for possible tracheostomy and PEG tube placement. This was discussed with the patient's family today. 2. Acute alcohol withdrawal The patient was ultimately intubated as a consequence of his acute alcohol withdrawal. However, with supportive care, he is now outside of his window for acute alcohol withdrawal symptoms. Continue supportive care as noted above. 3. History of LVH with LVOT Continue supportive care as noted above. Caution needs to be exercised to avoid hypotension as this will increase his left ventricular outflow gradient. If vasopressors are needed, recommend initiation of phenylephrine. Recommend continuation of beta-asael for heart rate control. 4. History of bilateral carotid artery stenosis status post left carotid endarterectomy Continue routine postoperative care per vascular surgery recommendations. 5. History of chronic tobacco and alcohol dependency Complicates care, management, recovery and prognosis. Continue supportive measures as noted above. Continue tube feeding for nutritional support. Monitor electrolytes closely for evidence of refeeding syndrome. TIME: 35 minutes of critical care time, independent of procedures, was spent addressing the patient's acute hypoxemic and hypercapnic respiratory failure, acute alcohol withdrawal, review of all data and collaboration with the care team. Subjective Subjective The patient was seen and examined at the bedside this morning. Events from the last 24 hours have been reviewed. The patient currently has a low-grade fever but remains otherwise hemodynamically stable on assist-control mode of mechanical ventilation with an FiO2 requirement of 50% and PEEP of 10. Unfortunately, the patient continues to have copious endotracheal tube secretions. He is currently documented to be overall net +5.3 L for the hospitalization. The patient did develop a contraction alkalosis yesterday with aggressive attempts at diuresis. White blood cell count is mildly elevated at 13,000 with a hemoglobin of 10.7 g/dL and platelet count of 511,000. Arterial blood gas was notable for a pH of 7.49 with a pCO2 of 48 and pO2 of 53. Chemistry profile was notable for a bicarbonate of 32 and creatinine of 0.82. In light of the patient's ongoing endotracheal tube secretions and inability to be weaned from the ventilator, I did have a conversation with the patient's brother and nephew today regarding the feasibility of proceeding with tracheostomy and PEG tube placement, as the patient has been on the ventilator now for 8 days. They were both in agreement that the patient would want to proceed with tracheostomy and PEG tube placement. Therefore, we will reach out to ENT and GI to help facilitate the aforementioned. Objective Data Objective Data The patient's most recent lab work, culture data and imaging studies have all been personally reviewed. Sputum culture is demonstrating growth of group C Streptococcus. Vital Signs: Vital Signs Temp Pulse Resp BP Pulse Ox O2 Del Method O2 Flow Rate 100.1 F H 104 H 18 127/54 H 92 Mechanical Ventilator 40 04/30/25 03:00 04/30/25 03:27 04/30/25 03:00 04/30/25 03:00 04/30/25 03:00 04/30/25 04:00 04/23/25 18:00 FiO2 55 04/30/25 04:00 Oxygen Flow Rate (L/min) 40 Oxygen Delivery Method Mechanical Ventilator Weight: 215 lb 2.738 oz Body Mass Index (BMI) 31.8 Intake & Output: Intake and Output for Last 24 Hours 11/17/25 11/18/25 11/19/25 23:59 23:59 23:59 Intake Total 3002.93 / 3071.63 2170.05 / 2234.58 765.77 / 765.77 Output Total 1949 3125 / 3125 Balance 1052.93 / 1121.63 -954.95 / -890.42 765.77 / 765.77 Lab / Micro Data Attestation: I reviewed the patient's lab results. 04/30/25 04:52 04/30/25 04:52 Labs: Laboratory Results - last 24 hr 04/28/25 11:31: POC Glucose 132 H 04/28/25 16:57: POC Glucose 124 H 04/29/25 04:15: WBC 13.0 H, RBC 3.07 L, Hgb 10.3 L, Hct 30.5 L, MCV 99.3 H, MCH 33.6 H, MCHC 33.8, RDW Std Deviation 51.5 H, RDW Coeff of Nicola 14.1, Plt Count 423, MPV 9.9, Immature Gran % (Auto) 2.000 H, Neut % (Auto) 78.9 H, Lymph % (Auto) 7.1 L, [place] % (Auto) 8.9, Eos % (Auto) 2.5, Baso % (Auto) 0.6, Absolute Neuts (auto) 10.2 H, Absolute Lymphs (auto) 0.92, Nucleated RBC % 0, Sodium 140, Potassium 3.6, Chloride 99, Carbon Dioxide 27.5, Anion Gap 13, BUN 26 H, Creatinine 0.84, Estim Creat Clear Calc 85.02, Est GFR (MDRD) Non-Af 90, B UN/Creatinine Ratio 31.3 H, Glucose 139 H, Calcium 8.6, Phosphorus 2.8, Magnesium 2.0, Total Bilirubin 0.43, AST 401 H, ALT 201 H, Alkaline Phosphatase 115, Total Protein 6.4, Albumin 2.6 L, Globulin 3.8, Albumin/Globulin Ratio 0.7 L, Vancomycin Trough 12.3 Micro: Microbiology 04/27/25 16:30 Urine Catheter - Pichardo Urine Culture - Preliminary Culture exhibits no growth. 04/26/25 14:50 Sputum, Induced/Lukens Gram Stain - Final 04/26/25 14:50 Sputum, Induced/Lukens Respiratory Culture - Final Streptococcus group C 04/26/25 12:15 Sputum, Induced/Lukens Gram Stain - Final 04/26/25 12:15 Sputum, Induced/Lukens Respiratory Culture - Final Streptococcus group C 04/23/25 12:25 Sputum, Induced/Lukens Gram Stain - Final 04/23/25 12:25 Sputum, Induced/Lukens Respiratory Culture - Final Mixed normal respiratory randi. No Streptococcus pneumoniae, beta-hemolytic Streptococcus or Staphylococcus aureus isolated. ABG Data ABG results: ABG 04/29/25 05:41 Specimen Type ART Sample Site L Radial pH 7.48 H Bicarbonate Actual 30.3 H Total CO2 32 Base Excess 7 H O2 Saturation 87 L O2 % 70.0 ABG pCO2 40.4 ABG pO2 49 L Herson Test Positive Respiration Rate 14 O2 Delivery Device Adult Vent Vent Mode AC Tidal Volume 450.0 POC PEEP 8 Radiography Diagnostic Testing: Radiology Impression Chest X-Ray 04/29/25 05:20 IMPRESSION: Tubes and lines in position. Heart size is mildly enlarged. Central vascularity appears increased. There is consolidation in the right mid and lower lung with infiltrate in the left perihilar region. Reading Location: [facility] Liver Ultrasound 04/29/25 08:43 IMPRESSION: Hepatomegaly and hepatic steatosis. Free fluid/ascites noted. No acute cholecystitis. Reading Location: [facility] Physical Exam Const no apparent distress Constitutional Narrative: Intubated and mechanically ventilated. General Appearance: ill appearing and patient mechanically ventilated HEENT normocephalic and head/scalp atraumatic Mouth: endotracheal tube in place and OG tube in place Eyes PERRL, EOMs intact bilaterally and conjunctivae normal Neck supple General: trachea midline Chest inspection of chest normal Resp Auscultation: rhonchi and diminished lung sounds; Negative for rales or wheezes Cardio regular rate, regular rhythm, S1 normal heart sound and S2 normal heart sound GI normal to inspection, nondistended, normoactive bowel sounds Extremity General Extremity: edema; Negative for clubbing Skin no rashes or lesions noted Neuro Sensorium / Orientation: sedated on vent Charges/Coding Procedures Hospitalists Procedures: 86803 Critical Care 1st Hr
[2025-04-30 06:19] LABS: Hematocrit 31.5 % (40-54); Hemoglobin 10.7 g/dL (13.0-16.5); Immature Granulocytes Count 0.270 X10^3/uL (0.0-0.0); Mean Corp Hgb Conc 34.0 g/dL (32-36); Mean Corpuscular Volume 98.7 fL (80-94); Mean Platelet Vol. 9.9 fl (6.2-12.0); NRBC Flagged by Analyzer 0 % (0-5); Platelet Count 511 K/mm3 (150-450); RBC Distribution Width CV 14.2 % (11.6-14.6); RBC Distribution Width SD 51.9 fl (35.1-43.9); Red Blood Count 3.19 M/mm3 (4.6-6.2); White Blood Count 13.2 K/mm3 (4.4-11.0)
[2025-04-30] MEDS: fentaNYL drip 100 ML 17.5 MCG CONT INF ×3 (06:26→17:43)
[2025-04-30 06:49] LABS: AST(SGOT) 529 U/L (<=37); Alanine Aminotransfer ALT/SGPT 326 U/L (<=46); Albumin, Serum 2.8 g/dL (3.4-4.8); Alkaline Phosphatase 253 U/L (40-129); Anion Gap 13 (5-15); BUN 23 mg/dL (4-19); BUN/Creat Ratio 28.2 RATIO (10-20); Calcium,Total 9.0 mg/dL (7.6-11.0); Carbon Dioxide 32.1 mmol/L (21.0-32.0); Chloride 97 mmol/L (98-108); Estimated Creatinine Clearance 86.92 ml/min (50-250); Globulin 4.3 g/dL (2.2-4.2); Glucose 153 mg/dL (70-99); Potassium 3.3 mmol/L (3.3-5.1)
[2025-04-30 09:28] LABS: Base Excess 14 mmol/L (-2 to +2); FI02 50.0; PEEP 10; PO2 53 mmHG (75-100); RR 14; SITE R Radial; SO2 89 % (94-98)
[2025-04-30] MEDS: Senna/Docusate Sodium 1 Tablet 2 TABLET PO ×2 (09:55→21:05)
[2025-04-30] MEDS: Chlorhexidine 15 ML PO ×2 (09:58→21:03)
[2025-04-30] MEDS: Thiamine Hydrochloride 100 MG Tablet PO (09:58)
[2025-04-30] MEDS: Polyethylene Glycol 3350 17 GM PACKET PO (09:59)
[2025-04-30] MEDS: Pantoprazole Sodium 40 MG in 0.9% Normal Saline (100mL MB+) 100 ML 300 MG IV (10:07)
--- NOTE | 2025-04-30 11:14 | PCM.PN.SRG ---
Subjective Subjective I saw Mr. Kirby at bedside today, his nephew Fritz was present. Patient awoke to verbal, nodded yes/no to questions and with discussion of current plans. Fritz relayed that he had worked with PT/OT just prior and had moved all his extremities well, but struggled to sit up due to discomfort. He discussed recommendations for tracheostomy and PEG tube with cook short order earlier today, they are going to proceed. Plan now is for d/c to LTACH when appropriate. Objective Data Objective Data Vital Signs: Vital Signs Temp Pulse Resp BP Pulse Ox O2 Del Method O2 Flow Rate 99.6 F H 98 16 142/51 H 94 Mechanical Ventilator 40 04/30/25 07:00 04/30/25 10:39 04/30/25 10:39 04/30/25 07:00 04/30/25 10:39 04/30/25 07:00 04/23/25 18:00 FiO2 50 04/30/25 10:39 Oxygen Flow Rate (L/min) 40 Oxygen Delivery Method Mechanical Ventilator Weight: 215 lb 2.738 oz Body Mass Index (BMI) 31.8 Intake & Output: Intake and Output for Last 24 Hours 04/28/25 04/29/25 04/30/25 23:59 23:59 23:59 Intake Total 3002.93 / 3071.63 2170.05 / 2234.58 1063.96 / 1063.96 Output Total 1950 / 1950 3125 / 3125 450 / 450 Balance 1052.93 / 1121.63 -954.95 / -890.42 613.96 / 613.96 Lab / Micro Data 04/30/25 04:52 04/30/25 04:52 Labs: Laboratory Results - last 24 hr 04/30/25 04:52: WBC 13.2 H, RBC 3.19 L, Hgb 10.7 L, Hct 31.5 L, MCV 98.7 H, MCH 33.5 H, MCHC 34.0, RDW Std Deviation 51.9 H, RDW Coeff of Nicola 14.2, Plt Count 511 H, MPV 9.9, Immature Gran % (Auto) 2.000 H, Neut % (Auto) 79.1 H, Lymph % (Auto) 7.6 L, [place] % (Auto) 8.6, Eos % (Auto) 2.0, Baso % (Auto) 0.7, Absolute Neuts (auto) 10.4 H, Absolute Lymphs (auto) 1.01, Nucleated RBC % 0, Sodium 142, Potassium 3.3, Chloride 97 L, Carbon Dioxide 32.1 H, Anion Gap 13, BUN 23 H, Creatinine 0.82, Estim Creat Clear Calc 86.92, Est GFR (MDRD) Non-Af 91, BUN/Creatinine Ratio 28.2 H, Glucose 153 H, Calcium 9.0, Phosphorus 3.6, Total Bilirubin 0.42, AST 529 H, ALT 326 H, Alkaline Phosphatase 253 H, Total Protein 7.1, Albumin 2.8 L, Globulin 4.3 H, Albumin/Globulin Ratio 0.6 L Micro: Microbiology 04/27/25 16:30 Urine Catheter - Pichardo Urine Culture - Final Culture exhibits no growth. 04/27/25 16:45 Blood Culture (Wb) - Left Forearm Blood Culture - Preliminary No growth in 48 hours. 04/27/25 16:50 Blood Culture (Wb) - Anticubital Right Blood Culture - Preliminary No growth in 48 hours. 04/26/25 14:50 Sputum, Induced/Lukens Gram Stain - Final 04/26/25 14:50 Sputum, Induced/Lukens Respiratory Culture - Final Streptococcus group C 04/26/25 12:15 Sputum, Induced/Lukens Gram Stain - Final 04/26/25 12:15 Sputum, Induced/Lukens Respiratory Culture - Final Streptococcus group C 04/23/25 12:25 Sputum, Induced/Lukens Gram Stain - Final 04/23/25 12:25 Sputum, Induced/Lukens Respiratory Culture - Final Mixed normal respiratory randi. No Streptococcus pneumoniae, beta-hemolytic Streptococcus or Staphylococcus aureus isolated. ABG Data ABG results: ABG 04/30/25 09:23 Specimen Type ART Sample Site R Radial pH 7.49 H Bicarbonate Actual 36.9 H Total CO2 38 Base Excess 14 H O2 Saturation 89 L O2 % 50.0 ABG pCO2 48.5 H ABG pO2 53 L Respiration Rate 14 O2 Delivery Device Adult Vent Vent Mode AC Tidal Volume 450.0 POC PEEP 10 Radiography Diagnostic Testing: Radiology Impression Liver Ultrasound 04/29/25 08:43 IMPRESSION: Hepatomegaly and hepatic steatosis. Free fluid/ascites noted. No acute cholecystitis. Reading Location: [facility] Physical Exam Const Constitutional Narrative: intubated, lethargic but awoke to verbal/his name HEENT head/scalp atraumatic, external ears normal and external nose normal Neck Neck Narrative: L neck incision site with skin glue intact, well-healing. Resp Resp Narrative: intubated, on mechanical ventilation Cardio Rate: tachycardic Skin no rashes or lesions noted Neuro moves all extremities Neuro Narrative: sedated, more lethargic Sensorium / Orientation: other sedate Assessment & Plan Assessment/Plan (1) Left carotid stenosis: PLAN: POD # 9 left CEA complicated by alcohol withdrawal, respiratory failure requiring intubation, now pneumonia; surgical site well-healing - cont atbx/vent per ICU; he is not able to be weaned from vent at this time so plan is for tracheostomy likely next week with ENT - plan is for PEG tube for ongoing nutritional support; GI consulted -no focal deficits when arousable -DVT/GI prophylaxis Charges/Coding Procedures Integumentary [id number]: [id number] Global Visit
[2025-04-30] MEDS: Propofol 10MG/Ml 1,000 MG/100 ML Bottle 14.6 MG CONT INF ×2 (11:18→17:43)
--- NOTE | 2025-04-30 12:06 | CASEMGMT ---
Addendum entered by Peewee Lafleur 04/30/25 15:46: RN CM to the pt's room at this time. Pt's Nephew reports that they plan to discuss LTACH options with family and will have preferences ready by tomorrow morning. CM to follow. Original Note: Dr Rock collaborated with this RN CM, stating that the patient will likely require trach and peg procedures and LTACH placement at [place]. The transportation maintenance supervisor states that ENT tentatively plans on trach placement early next week. Consult with GI pending. A local list of in-network LTACH hospitals was printed from the [facility] guide at this time. RN CM to the patient?s room. Pt?s alternative HCPOA, Fritz (Nephew), at the bedside. TC to Porfirio (pt?s brother and primary HCPOA). Porfirio and Fritz state that they are agreeable to LTACH and that they would like to review the list provided. Answered all of the brothers? and nephews? questions regarding LTACH disposition planning; they deny further questions or concerns at this time. CM to follow for preferences.
[2025-04-30] MEDS: Nicotine (PBKC) 21 MG Patch TD (12:13)
--- NOTE | 2025-04-30 13:29 | CON.PCM.GI_ITS ---
HPI Consult Data Date of Consult: 04/30/25 HPI Narrative Reason for Consultation: PEG tube placement HPI Narrative: LITA MEYER, is a 79 y/o male with a medical history significant for Obesity, Tobacco use, Hypertension, Hyperlipidemia , Peripheral Artery Disease , and Bilateral (BL) Carotid disease. He was admitted to [facility] on April 21, 2025, for a planned left carotid endarterectomy performed by vascular surgery. Postoperatively, the patient experienced worsening alcohol withdrawal syndrome, unresponsive to standing Clinical [place] Withdrawal Assessment for Alcohol (CIWA) protocols, characterized by increased restlessness, tremors, and elevated blood pressure. He required ongoing intubation and has been unable to be extubated due to these complications. Consultations were initiated for Percutaneous Endoscopic Gastrostomy tube placement and tracheostomy tube placement. [facility] Medical History Wears glasses Wears dentures Alcohol use High cholesterol Shortness of breath on exertion Leg cramps History of pain when walking History of echocardiogram History of stress test Cardiology follow-up encounter Peripheral arterial disease Smoker Sinus tachycardia Mixed hyperlipidemia LVH (left ventricular hypertrophy) Essential (primary) hypertension Home Medications ?Medication ?Instructions ?Recorded ?Last Taken ?Type aspirin 81 mg tablet 81 mg PO QDAY [facility] 0 02/27/25 04/20/25 History atorvastatin 40 mg tablet (Lipitor) 40 mg PO QHS JACI STEROL 02/27/25 04/20/25 History cilostazol 100 mg tablet 100 mg PO BID PVD 02/27/25 1 06/15/24 History lisinopril 20 2 tab PO QDAY BP 02/27/25 History mg-hydrochlorothiazide 12.5 mg tablet metoprolol succinate 25 mg 25 mg PO BID BP 02/27/25 06:15 History tablet,extended release 24 hr clopidogrel 75 mg tablet (Plavix) 75 mg PO DAILY PVD 9 0 days #90 tabs 03/25/25 04/20/25 Rx Allergy/AdvReac Type Severity Reaction Status Date / Time No Known Allergies Allergy Verified 04/21/25 09:29 Family History unable to obtain Surgical History History of esophagogastroduodenoscopy (EGD) Hx of colonoscopy Social History household members: none Smoking Status: Heavy Smoker (>10/day) Tobacco: How many years used: 56 alcohol intake: current alcohol intake frequency: 3 or more drinks per day Alcohol type: beer details: 7-8 beers daily substance use type: does not use caffeine: Yes ROS ROS Narrative Unable to assess due to patient intubated and sedated Physical Exam Const no apparent distress Constitutional Narrative: Intubated and mechanically ventilated. General Appearance: patient mechanically ventilated HEENT Mouth: endotracheal tube in place and OG tube in place Neck supple Chest inspection of chest normal Resp Auscultation: rhonchi and diminished lung sounds; Negative for rales or wheezes Cardio regular rate, regular rhythm, S1 normal heart sound and S2 normal heart sound GI normal to inspection, nondistended, normoactive bowel sounds Extremity General Extremity: edema; Negative for clubbing Skin no rashes or lesions noted Neuro Sensorium / Orientation: sedated on vent Lab / Micro Data 04/30/25 04:52 04/30/25 04:52 Labs: Laboratory Results - last 24 hr 04/30/25 04:52: WBC 13.2 H, RBC 3.19 L, Hgb 10.7 L, Hct 31.5 L, MCV 98.7 H, MCH 33.5 H, MCHC 34.0, RDW Std Deviation 51.9 H, RDW Coeff of Nicola 14.2, Plt Count 511 H, MPV 9.9, Immature Gran % (Auto) 2.000 H, Neut % (Auto) 79.1 H, Lymph % (Auto) 7.6 L, [place] % (Auto) 8.6, Eos % (Auto) 2.0, Baso % (Auto) 0.7, Absolute Neuts (auto) 10.4 H, Absolute Lymphs (auto) 1.01, Nucleated RBC % 0, Sodium 142, Potassium 3.3, Chloride 97 L, Carbon Dioxide 32.1 H, Anion Gap 13, BUN 23 H, Creatinine 0.82, Estim Creat Clear Calc 86.92, Est GFR (MDRD) Non-Af 91, B UN/Creatinine Ratio 28.2 H, Glucose 153 H, Calcium 9.0, Phosphorus 3.6, Total Bilirubin 0.42, AST 529 H, ALT 326 H, Alkaline Phosphatase 253 H, Total Protein 7.1, Albumin 2.8 L, Globulin 4.3 H, Albumin/Globulin Ratio 0.6 L Micro: Microbiology 04/27/25 16:30 Urine Catheter - Pichardo Urine Culture - Final Culture exhibits no growth. 04/27/25 16:45 Blood Culture (Wb) - Left Forearm Blood Culture - Preliminary No growth in 48 hours. 04/27/25 16:50 Blood Culture (Wb) - Anticubital Right Blood Culture - Preliminary No growth in 48 hours. ABG Data ABG results: ABG 04/30/25 09:23 Specimen Type ART Sample Site R Radial pH 7.49 H Bicarbonate Actual 36.9 H Total CO2 38 Base Excess 14 H O2 Saturation 89 L O2 % 50.0 ABG pCO2 48.5 H ABG pO2 53 L Respiration Rate 14 O2 Delivery Device Adult Vent Vent Mode AC Tidal Volume 450.0 POC PEEP 10 Imaging Radiology Impression Liver Ultrasound 04/29/25 08:43 IMPRESSION: Hepatomegaly and hepatic steatosis. Free fluid/ascites noted. No acute cholecystitis. Reading Location: [facility] Assessment & Plan Assessment/Plan (1) Encounter for PEG (percutaneous endoscopic gastrostomy): (2) Failure to wean from mechanical ventilation: PLAN: 79 y/o male with complicated postoperative course following left carotid endarterectomy. Primary ongoing issues include: * Severe Alcohol Withdrawal Syndrome:?Persistent symptoms despite CIWA-driven management, leading to failed extubation and need for ongoing mechanical support. Autonomic instability (HTN, tremors, restlessness) remains a primary concern. * Airway Management & Respiratory Failure:?Inability to clear secretions/protect airway necessitating prolonged intubation, prompting the need for a tracheostomy to facilitate long-term airway management and ventilator weaning. * Nutritional Support:?Prolonged intubation and anticipated extended recovery necessitate placement of a PEG tube for adequate enteral nutrition. * Comorbidities:?Stable at present (Obesity, HTN, HLD, PAD, BL Carotid disease). Plan * Airway/Pulmonary:?Planned tracheostomy tube placement to manage prolonged intubation and facilitate weaning from mechanical ventilation. Continue current ventilator settings and respiratory therapy support. * Proceed with planned PEG tube placement for long-term enteral access and nutritional support. * Alcohol Withdrawal Management:?Continue aggressive management of alcohol withdrawal syndrome under critical care guidance. Titrate medications (e.g., benzodiazepines, adjunctive therapies as indicated) to achieve symptom control and hemodynamic stability. Monitor CIWA scores closely. * Disposition:?Continue ICU level of care monitoring. * Code Status:?Full Code (status quo). Charges/Coding Visit Charges Inpatient E&M: 88647 Init Hosp L3
[2025-04-30 15:00] LABS: Triglycerides 164 mg/dL
[2025-04-30 15:21] LABS: CPK Total, Creatine Kinase 1179 U/L (24-195)
--- NOTE | 2025-04-30 17:37 | PCM.PN.BLA ---
Progress Note HPI Narrative Reason for Consultation: PEG tube placement HPI Narrative: LITA MEYER, is a 79 y/o male with a medical history significant for Obesity, Tobacco use, Hypertension, Hyperlipidemia , Peripheral Artery Disease , and Bilateral (BL) Carotid disease. He was admitted to [facility] on April 21, 2025, for a planned left carotid endarterectomy performed by vascular surgery. Postoperatively, the patient experienced worsening alcohol withdrawal syndrome, unresponsive to [facility] Withdrawal Assessment for Alcohol (CIWA) protocols, characterized by increased restlessness, tremors, and elevated blood pressure. He required ongoing intubation and has been unable to be extubated due to these complications. Consultations were initiated for Percutaneous Endoscopic Gastrostomy tube placement and tracheostomy tube placement. [facility] Medical History Wears glasses Wears dentures Alcohol use High cholesterol Shortness of breath on exertion Leg cramps History of pain when walking History of echocardiogram History of stress test Cardiology follow-up encounter Peripheral arterial disease Smoker Sinus tachycardia Mixed hyperlipidemia LVH (left ventricular hypertrophy) Essential (primary) hypertension Home Medications ?Medication ?Instructions ?Recorded ?Last Taken ?Type aspirin 81 mg tablet 81 mg PO QDAY HEART HEALTH 02/27/25 04/20/25 History atorvastatin 40 mg tablet (Lipitor) 40 mg PO QHS CHOLESTEROL 02/27/25 04/20/25 History cilostazol 100 mg tablet 100 mg PO BID PVD 02/27/25 04/15/25 History lisinopril 20 2 tab PO QDAY BP 02/27/25 04/20/25 History mg-hydrochlorothiazide 12.5 mg tablet metoprolol succinate 25 mg 25 mg PO BID BP 02/27/25 04/21/25 06:15 History tablet,extended release 24 hr clopidogrel 75 mg tablet (Plavix) 75 mg PO DAILY PVD 90 days #90 tabs 03/25/25 04/20/25 Rx Allergy/AdvReac Type Severity Reaction Status Date / Time No Known Allergies Allergy Verified 04/21/25 09:29 Family History unable to obtain Surgical History History of esophagogastroduodenoscopy (EGD) Hx of colonoscopy Social History household members: none Smoking Status: Heavy Smoker (>10/day) Tobacco: How many years used: 56 alcohol intake: current alcohol intake frequency: 3 or more drinks per day Alcohol type: beer details: 7-8 beers daily substance use type: does not use caffeine: Yes ROS ROS Narrative Unable to assess due to patient intubated and sedated Physical Exam Const no apparent distress Constitutional Narrative: Intubated and mechanically ventilated. General Appearance: patient mechanically ventilated HEENT Mouth: endotracheal tube in place and OG tube in place Neck supple Chest inspection of chest normal Resp Auscultation: rhonchi and diminished lung sounds; Negative for rales or wheezes Cardio regular rate, regular rhythm, S1 normal heart sound and S2 normal heart sound GI normal to inspection, nondistended, normoactive bowel sounds Extremity General Extremity: edema; Negative for clubbing Skin no rashes or lesions noted Neuro Sensorium / Orientation: sedated on vent Physical exam: Intubated and sedated. 7.[address] No palpable neck masses or thyroid. Assessment: Respiratory failure Plan: The patient be placed on the schedule for tracheotomy. His blood thinners will need to be on hold which I will discuss with the primary team.
[2025-05-01] VITALS (38 sets, daily range): BP systolic 101–163; BP diastolic 45–79; PULSE 72–114; RESP 12–20; TEMP 37–37.6; O2SAT 86–97; BMI 31.6; BMI 31.5
[2025-05-01] MEDS: Propofol 10MG/Ml 1,000 MG/100 ML Bottle 11.7 MG CONT INF (00:45)
[2025-05-01 04:22] LABS: GGTP 258 IU/L (0-65)
[2025-05-01 05:11] LABS: Hematocrit 29.3 % (40-54); Hemoglobin 9.9 g/dL (13.0-16.5); Immature Granulocytes Count 0.350 X10^3/uL (0.0-0.0); Mean Corp Hgb Conc 33.8 g/dL (32-36); Mean Corpuscular Volume 101.4 fL (80-94); Mean Platelet Vol. 11.0 fl (6.2-12.0); NRBC Flagged by Analyzer 0.4 % (0-5); Platelet Count 655 K/mm3 (150-450); RBC Distribution Width CV 14.6 % (11.6-14.6); RBC Distribution Width SD 54.2 fl (35.1-43.9); Red Blood Count 2.89 M/mm3 (4.6-6.2); White Blood Count 14.0 K/mm3 (4.4-11.0)
[2025-05-01] MEDS: Cefazolin 1 GM/50 ML BAG IV ×3 (05:41→21:00)
[2025-05-01] MEDS: fentaNYL drip 100 ML 17.5 MCG CONT INF ×5 (05:43→22:00)
[2025-05-01] MEDS: 0.9% Saline Lock 10 ML Syringe IV (05:47)
[2025-05-01] MEDS: CHLORHEXIDINE GLUC 2% CLOTH 1 EACH TOWELETTE TOPICAL (05:47)
[2025-05-01] MEDS: TITRATION PARAMETER CHANGE 1 EACH IV (06:36)
--- NOTE | 2025-05-01 06:57 | PCM.HOSP.N ---
Hospitalist Note Patient with ongoing respiratory failure with plans for trach and PEG. The hospitalist service will formally sign off. Please reconsult if status can be deescalate or call with questions.
[2025-05-01 06:58] LABS: AST(SGOT) 330 U/L (<=37); Alanine Aminotransfer ALT/SGPT 221 U/L (<=46); Albumin, Serum 2.8 g/dL (3.4-4.8); Alkaline Phosphatase 146 U/L (40-129); Anion Gap 14 (5-15); BUN 40 mg/dL (4-19); BUN/Creat Ratio 41.3 RATIO (10-20); Calcium,Total 9.0 mg/dL (7.6-11.0); Carbon Dioxide 32.8 mmol/L (21.0-32.0); Chloride 99 mmol/L (98-108); Estimated Creatinine Clearance 73.19 ml/min (50-250); Globulin 3.8 g/dL (2.2-4.2); Glucose 137 mg/dL (70-99); Lipase 91 U/L (13-75); Potassium 3.0 mmol/L (3.3-5.1)
--- NOTE | 2025-05-01 07:31 | PN.SURG_ITS ---
Subjective Subjective I saw Mr. Kirby at bedside this morning. He was alert, awake, nodding/shaking head to answer questions. He is scheduled for PEG tube placement this afternoon. Objective Data Objective Data Vital Signs: Vital Signs Temp Pulse Resp BP Pulse Ox O2 Del Method O2 Flow Rate 99.1 F 88 17 138/57 H 93 Mechanical Ventilator 40 05/01/25 07:00 05/01/25 07:00 05/01/25 07:00 05/01/25 07:00 05/01/25 07:00 05/01/25 07:00 04/23/25 18:00 FiO2 65 05/01/25 07:00 Oxygen Flow Rate (L/min) 40 Oxygen Delivery Method Mechanical Ventilator Weight: 213 lb 6.519 oz Body Mass Index (BMI) 31.5 Intake & Output: Intake and Output for Last 24 Hours 04/29/25 04/30/25 05/01/25 23:59 23:59 23:59 Intake Total 2170.05 / 2234.58 2687.36 / 2929.85 598.36 / 598.36 Output Total 3125 / 3125 2400 / 2400 250 / 250 Balance -954.95 / -890.42 287.36 / 529.85 348.36 / 348.36 Lab / Micro Data 05/01/25 04:35 05/01/25 06:05 Labs: Laboratory Results - last 24 hr 04/30/25 04:52: Total Creatine Kinase 1179 H, Triglycerides 164 04/30/25 08:10: GGT 258 H 05/01/25 04:35: WBC 14.0 H, RBC 2.89 L, Hgb 9.9 L, Hct 29.3 L, MCV 101.4 H, MCH 34.3 H, MCHC 33.8, RDW Std Deviation 54.2 H, RDW Coeff of Nicola 14.6, Plt Count 655 H, MPV 11.0, Immature Gran % (Auto) 2.500 H, Neut % (Auto) 84.7 H, Lymph % (Auto) 5.9 L, [place] % (Auto) 6.4, Eos % (Auto) 0.2, Baso % (Auto) 0.3, Absolute Neuts (auto) 11.9 H, Absolute Lymphs (auto) 0.82 L, Nucleated RBC % 0.4 05/01/25 06:05: Sodium 145, Potassium 3.0 L, Chloride 99, Carbon Dioxide 32.8 H, Anion Gap 14, BUN 40 H, Creatinine 0.97, Estim Creat Clear Calc 73.19, Est GFR (MDRD) Non-Af 80, BUN/Creatinine Ratio 41.3 H, Glucose 137 H, Calcium 9.0, Total Bilirubin 0.32, AST 330 H, ALT 221 H, Alkaline Phosphatase 146 H, Total Protein 6.6, Albumin 2.8 L, Globulin 3.8, Albumin/Globulin Ratio 0.7 L, Lipase 91 H Micro: Microbiology 04/27/25 16:30 Urine Catheter - Pichardo Urine Culture - Final Culture exhibits no growth. 04/27/25 16:45 Blood Culture (Wb) - Left Forearm Blood Culture - Preliminary No growth in 48 hours. 04/27/25 16:50 Blood Culture (Wb) - Anticubital Right Blood Culture - Preliminary No growth in 48 hours. 04/26/25 14:50 Sputum, Induced/Lukens Gram Stain - Final 04/26/25 14:50 Sputum, Induced/Lukens Respiratory Culture - Final Streptococcus group C 04/26/25 12:15 Sputum, Induced/Lukens Gram Stain - Final 04/26/25 12:15 Sputum, Induced/Lukens Respiratory Culture - Final Streptococcus group C 04/23/25 12:25 Sputum, Induced/Lukens Gram Stain - Final 04/23/25 12:25 Sputum, Induced/Lukens Respiratory Culture - Final Mixed normal respiratory randi. No Streptococcus pneumoniae, beta-hemolytic Streptococcus or Staphylococcus aureus isolated. ABG Data ABG results: ABG 04/30/25 09:23 Specimen Type ART Sample Site R Radial pH 7.49 H Bicarbonate Actual 36.9 H Total CO2 38 Base Excess 14 H O2 Saturation 89 L O2 % 50.0 ABG pCO2 48.5 H ABG pO2 53 L Respiration Rate 14 O2 Delivery Device Adult Vent Vent Mode AC Tidal Volume 450.0 POC PEEP 10 Physical Exam Const Constitutional Narrative: intubated, alert this morning HEENT head/scalp atraumatic, external ears normal and external nose normal Neck Neck Narrative: L neck incision site with skin glue intact, well-healing. Resp Resp Narrative: intubated, on mechanical ventilation Cardio Rate: tachycardic Skin no rashes or lesions noted Neuro moves all extremities Neuro Narrative: sedated, more lethargic Sensorium / Orientation: other sedate Assessment & Plan Assessment/Plan (1) Left carotid stenosis: PLAN: POD # 10 left CEA complicated by alcohol withdrawal, respiratory failure requiring intubation, now pneumonia; surgical site well-healing - cont atbx/vent per ICU; he is not able to be weaned from vent at this time so plan is for tracheostomy likely next week with ENT - scheduled for PEG tube placement this afternoon -DVT/GI prophylaxis Charges/Coding Procedures Integumentary [id number]: [id number] Global Visit
[2025-05-01] MEDS: Propofol 10MG/Ml 1,000 MG/100 ML Bottle 11.6 MG CONT INF ×3 (08:03→23:28)
--- NOTE | 2025-05-01 08:21 | PN.CC_ITS ---
Assessment & Plan Assessment/Plan (1) Alcohol withdrawal: (2) Acute respiratory failure with hypoxia and hypercapnia: PLAN: Plan RECOMMENDATIONS: 1. Continue assist-control mode of mechanical ventilation. Continue to wean FiO2 and PEEP as tolerated. 2. Continue propofol and fentanyl. Goal to maintain RASS of -1 to 1. 3. Tentative plans to proceed with tracheostomy and PEG tube placement, given failure to wean from invasive mechanical ventilatory support. 4. Continue gentle diuresis. 5. Continue beta-asael as ordered. 6. Continue antimicrobials. 7. Continue bronchodilator therapy and corticosteroids. 8. Continue nutritional support via tube feeding. 9. Continue appropriate GI and DVT prophylaxis. IMPRESSIONS: 1. Acute hypoxemic and hypercapnic respiratory failure Most likely secondary to underlying COPD coupled with inability to compensate for metabolic demands of acute alcohol withdrawal and respiratory depression induced by sedative medication administration. Accordingly, the patient was emergently intubated on April 23. His hospital course has been complicated by the development of Streptococcus pneumonia, for which he remains on antimicrobials. The patient will be continued on bronchodilator therapy and corticosteroids, with a goal to wean FiO2 and PEEP to maintain saturations at or above 90%. In addition, given his net positive volume status, we will continue attempts at diuresis, as tolerated by hemodynamics and renal function. The patient will be continued on tube feeding for nutritional support. Given that the patient is ventilator day #9 and it seems highly unlikely that he will be able to be successfully extubated, tentative plans are to proceed with tracheostomy and PEG tube placement, following a discussion with the patient's family. 2. Acute alcohol withdrawal The patient was ultimately intubated as a consequence of his acute alcohol withdrawal. However, with supportive care, he is now outside of his window for acute alcohol withdrawal symptoms. Continue supportive care as noted above. 3. History of LVH with LVOT Continue supportive care as noted above. Caution needs to be exercised to avoid hypotension as this will increase his left ventricular outflow gradient. If vasopressors are needed, recommend initiation of phenylephrine. Recommend continuation of beta-asael for heart rate control. 4. History of bilateral carotid artery stenosis status post left carotid endarterectomy Continue routine postoperative care per vascular surgery recommendations. 5. History of chronic tobacco and alcohol dependency Complicates care, management, recovery and prognosis. Continue supportive measures as noted above. Continue tube feeding for nutritional support. Monitor electrolytes closely for evidence of refeeding syndrome. TIME: 33 minutes of critical care time, independent of procedures, was spent addressing the patient's acute hypoxemic and hypercapnic respiratory failure, acute alcohol withdrawal, review of all data and collaboration with the care team. Subjective Subjective The patient was seen and examined at the bedside this morning. Events from the last 24 hours have been reviewed. The patient is currently afebrile, hemodynamically stable and maintaining appropriate oxygen saturations on assist- control mode of mechanical ventilation with an FiO2 requirement of 65% and PEEP of 10. The patient remains overall net +5.5 L for the hospitalization. He has been tolerant of tube feeding. The patient remains on antimicrobials, scheduled diuretics, bronchodilators and steroids. Following an extensive discussion with the patient's family, the plan is to proceed with tracheostomy and PEG tube placement. White blood cell count is elevated at 14,000. Hemoglobin is stable at 9.9 g/dL with a platelet count of 655,000. Potassium is low at 3.0 with a normal creatinine. Objective Data Objective Data The patient's most recent lab work, culture data and imaging studies have all been personally reviewed. Sputum culture is demonstrating growth of group C Streptococcus. Vital Signs: Vital Signs Temp Pulse Resp BP Pulse Ox O2 Del Method O2 Flow Rate 99.1 F 88 17 138/57 H 93 Mechanical Ventilator 40 05/01/25 07:00 05/01/25 07:00 05/01/25 07:00 05/01/25 07:00 05/01/25 07:00 05/01/25 07:00 04/23/25 18:00 FiO2 65 05/01/25 07:00 Oxygen Flow Rate (L/min) 40 Oxygen Delivery Method Mechanical Ventilator Weight: 213 lb 6.519 oz Body Mass Index (BMI) 31.5 Intake & Output: Intake and Output for Last 24 Hours 04/29/25 04/30/25 05/01/25 23:59 23:59 23:59 Intake Total 2170.05 / 2234.58 2687.36 / 2929.85 609.96 / 609.96 Output Total 3125 / 3125 2400 / 2400 250 / 250 Balance -954.95 / -890.42 287.36 / 529.85 359.96 / 359.96 Lab / Micro Data Attestation: I reviewed the patient's lab results. 05/01/25 04:35 05/01/25 06:05 Labs: Laboratory Results - last 24 hr 04/30/25 04:52: Total Creatine Kinase 1179 H, Triglycerides 164 04/30/25 08:10: GGT 258 H 05/01/25 04:35: WBC 14.0 H, RBC 2.89 L, Hgb 9.9 L, Hct 29.3 L, MCV 101.4 H, MCH 34.3 H, MCHC 33.8, RDW Std Deviation 54.2 H, RDW Coeff of Nicola 14.6, Plt Count 655 H, MPV 11.0, Immature Gran % (Auto) 2.500 H, Neut % (Auto) 84.7 H, Lymph % (Auto) 5.9 L, [place] % (Auto) 6.4, Eos % (Auto) 0.2, Baso % (Auto) 0.3, Absolute Neuts (auto) 11.9 H, Absolute Lymphs (auto) 0.82 L, Nucleated RBC % 0.4 05/01/25 06:05: Sodium 145, Potassium 3.0 L, Chloride 99, Carbon Dioxide 32.8 H, Anion Gap 14, BUN 40 H, Creatinine 0.97, Estim Creat Clear Calc 73.19, Est GFR (MDRD) Non-Af 80, BUN/Creatinine Ratio 41.3 H, Glucose 137 H, Calcium 9.0, Total Bilirubin 0.32, AST 330 H, ALT 221 H, Alkaline Phosphatase 146 H, Total Protein 6.6, Albumin 2.8 L, Globulin 3.8, Albumin/Globulin Ratio 0.7 L, Lipase 91 H Micro: Microbiology 04/27/25 16:30 Urine Catheter - Pichardo Urine Culture - Final Culture exhibits no growth. 04/27/25 16:45 Blood Culture (Wb) - Left Forearm Blood Culture - Preliminary No growth in 48 hours. 04/27/25 16:50 Blood Culture (Wb) - Anticubital Right Blood Culture - Preliminary No growth in 48 hours. 04/26/25 14:50 Sputum, Induced/Lukens Gram Stain - Final 04/26/25 14:50 Sputum, Induced/Lukens Respiratory Culture - Final Streptococcus group C 04/26/25 12:15 Sputum, Induced/Lukens Gram Stain - Final 04/26/25 12:15 Sputum, Induced/Lukens Respiratory Culture - Final Streptococcus group C 04/23/25 12:25 Sputum, Induced/Lukens Gram Stain - Final 04/23/25 12:25 Sputum, Induced/Lukens Respiratory Culture - Final Mixed normal respiratory randi. No Streptococcus pneumoniae, beta-hemolytic Streptococcus or Staphylococcus aureus isolated. ABG Data ABG results: ABG 04/30/25 09:23 Specimen Type ART Sample Site R Radial pH 7.49 H Bicarbonate Actual 36.9 H Total CO2 38 Base Excess 14 H O2 Saturation 89 L O2 % 50.0 ABG pCO2 48.5 H ABG pO2 53 L Respiration Rate 14 O2 Delivery Device Adult Vent Vent Mode AC Tidal Volume 450.0 POC PEEP 10 Radiography Diagnostic Testing: Radiology Impression Chest X-Ray 04/29/25 05:20 IMPRESSION: Tubes and lines in position. Heart size is mildly enlarged. Central vascularity appears increased. There is consolidation in the right mid and lower lung with infiltrate in the left perihilar region. Reading Location: [facility] Liver Ultrasound 04/29/25 08:43 IMPRESSION: Hepatomegaly and hepatic steatosis. Free fluid/ascites noted. No acute cholecystitis. Reading Location: [id number] Physical Exam Const Constitutional Narrative: Intubated and mechanically ventilated. No ventilator dyssynchrony noted. General Appearance: ill appearing and patient mechanically ventilated HEENT normocephalic and head/scalp atraumatic Mouth: endotracheal tube in place and OG tube in place Eyes PERRL, EOMs intact bilaterally and conjunctivae normal Neck supple General: trachea midline Chest inspection of chest normal Resp Auscultation: rhonchi and diminished lung sounds; Negative for rales or wheezes Cardio regular rate, regular rhythm, S1 normal heart sound and S2 normal heart sound GI normal to inspection, nondistended, normoactive bowel sounds Extremity General Extremity: edema; Negative for clubbing Skin no rashes or lesions noted Neuro Sensorium / Orientation: sedated on vent Charges/Coding Procedures Hospitalists Procedures: 83842 Critical Care 1st Hr
[2025-05-01] MEDS: Thiamine Hydrochloride 100 MG Tablet PO (08:25)
[2025-05-01] MEDS: Nicotine (PBKC) 21 MG Patch TD (08:26)
[2025-05-01] MEDS: Polyethylene Glycol 3350 17 GM PACKET PO ×2 (08:26→21:16)
[2025-05-01] MEDS: Senna/Docusate Sodium 1 Tablet 2 TABLET PO ×2 (08:27→21:02)
[2025-05-01] MEDS: Pantoprazole Sodium 40 MG in 0.9% Normal Saline (100mL MB+) 100 ML 300 MG IV (09:39)
[2025-05-01] MEDS: Chlorhexidine 15 ML PO ×2 (10:06→21:24)
[2025-05-01] MEDS: Potassium Chloride 10mEq/100mL 10 MEQ/100 ML IV.SOLN. 100 MEQ IV BOLUS ×4 (10:12→14:46)
--- NOTE | 2025-05-01 10:22 | CASEMGMT ---
Per ICU rounds and chart review, the patient is scheduled for PEG placement at noon today. ENT reports that trach placement is tentatively scheduled for early next week, possibly Monday. RN CM to the patient?s room at this time. Pt?s Nephew and alternative POA, Fritz, is at the bedside. Fritz reports that he has discussed the LTACH options with the family, including the patient?s POA and brother, Porfirio. At this time, the family reports that their FOC is [facility] in [place]. Family reports that their second FOC is [facility] in [place]. Pt?s family denies further questions or concerns at this time. This marine underwriter sent a referral to [facility] via [facility] with the appropriate documentation required, including pt's Demo sheet, H&P, Bed codes, insurance card, progress notes, labs, vitals, vent settings, current med list, and more. CM to continue to follow.
--- NOTE | 2025-05-01 12:30 | NURSING ---
Dr Blanco at bedside with Endo to perform EGD guided PEG insertion. Patient tolerated without complication, will continue to monitor. PEG tube OK for use now per Dr Blanco.
[2025-05-01] MEDS: Midazolam 2 MG/2 ML Syringe 4 MG IV (12:37)
--- NOTE | 2025-05-01 13:13 | OP.EGD_ITS ---
Patient Name: Gerardo Kirby Procedure Date: 05/01/2025 12:30 PM Date of : 1945 Age: 79 Procedure: Upper GI endoscopy Indications: Place PEG because patient requires ventilator support, Place PEG to improve nutrition in patient with prolonged severe illness Providers: Patel Blanco DO Referring MD: Rojas Marion Md Medicines: Monitored Anesthesia Care Patient Profile: This is a 79 year old male. Refer to note in patient chart for documentation of history and physical. Patient has symptoms of dysphagia with both liquids and solids. Complications: No immediate complications. Procedure: Pre-Anesthesia Assessment: - Prior to the procedure, a History and Physical was performed, and patient medications and allergies were reviewed. The patient is unable to give consent secondary to the patient's altered mental status. The risks and benefits of the procedure and the sedation options and risks were discussed with the patient's guardian. All questions were answered and informed consent was obtained. Patient identification and proposed procedure were verified by the physician in the pre-procedure area. Airway Examination: orotracheal intubation. Respiratory Examination: clear to auscultation. CV Examination: tachycardia noted. ASA Grade Assessment: IV - A patient with severe systemic disease that is a constant threat to life. After reviewing the risks and benefits, the patient was deemed in satisfactory condition to undergo the procedure. The anesthesia plan was to use moderate sedation / analgesia (conscious sedation). Immediately prior to administration of medications, the patient was re-assessed for adequacy to receive sedatives. The heart rate, respiratory rate, oxygen saturations, blood pressure, adequacy of pulmonary ventilation, and response to care were monitored throughout the procedure. The physical status of the patient was re-assessed after the procedure. After obtaining informed consent, the endoscope was passed under direct vision. Throughout the procedure, the patient's blood pressure, pulse, and oxygen saturations were monitored continuously. The Endoscope was introduced through the mouth, and advanced to the second part of duodenum. The upper GI endoscopy was accomplished without difficulty. The patient tolerated the procedure well. Scope In: 12:39:31 PM Scope Out: 12:51:45 PM Total Procedure Duration Time 0 hours 12 minutes 14 seconds Findings: No gross lesions were noted in the entire esophagus. No gross lesions were noted in the entire examined stomach. Placement of an endoscopically removable PEG with no T-fasteners was successfully completed. The external bumper was at the 3.0 cm marking on the tube. Estimated blood loss was minimal. No gross lesions were noted in the entire examined duodenum. Impression: - No gross lesions in the entire esophagus. - No gross lesions in the entire stomach. - No gross lesions in the entire examined duodenum. - An endoscopically removable PEG placement was successfully completed. - No specimens collected. Recommendation: - Please follow the post-PEG recommendations. - Continue present medications. Procedure Code(s): --- Professional --- 91426, Esophagogastroduodenoscopy, flexible, transoral; with directed placement of percutaneous gastrostomy tube CPT copyright 2021 [employer]. All rights reserved. The codes documented in this report are preliminary and upon boston cutter review may be revised to meet current compliance requirements. Patel Blanco DO 05/01/2025 1:13:16 PM This report has been signed electronically. Number of Addenda: 0 Note Initiated On: 05/01/2025 12:30 PM
--- NOTE | 2025-05-01 13:13 | OP.PROVAT_ITS ---
05/01/2025 Renetta Botello Re : Upper GI endoscopy procedure for Gerardo Kirby Dear Ayan This procedure was performed on April. My impressions and recommendations are as follows: Impressions : - No gross lesions in the entire esophagus. - No gross lesions in the entire stomach. - No gross lesions in the entire examined duodenum. - An endoscopically removable PEG placement was successfully completed. - No specimens collected. Recommendations : - Please follow the post-PEG recommendations. - Continue present medications. My findings are described in the full procedure note, which is enclosed. If I can be of further assistance, please feel free to contact me at . Sincerely, Patel Blanco DO 05/01/2025 1:13:16 PM This report has been signed electronically.
[2025-05-01] MEDS: Vital High Protein 1,000 ML 55 ML GT (15:06)
[2025-05-01] MEDS: 0.9% Normal Saline (250mL Bag) 250 ML 15 ML IV (20:55)
[2025-05-02] VITALS (42 sets, daily range): BP systolic 65–177; BP diastolic 17–89; PULSE 72–102; RESP 14–25; TEMP 37.1–38.1; O2SAT 89–98; BMI 30.9
[2025-05-02] MEDS: CHLORHEXIDINE GLUC 2% CLOTH 1 EACH TOWELETTE TOPICAL (02:29)
[2025-05-02] MEDS: fentaNYL drip 100 ML 17.5 MCG CONT INF ×2 (04:00→10:00)
--- NOTE | 2025-05-02 04:37 | RAD_ITS ---
PROCEDURE: CHEST 1 VIEW (PORTABLE) 05/02/2025 REASON FOR EXAM: RESPIRATORY FAILURE TECHNIQUE: Frontal view of the chest. COMPARISON: 04/29/2025. FINDINGS: Endotracheal tube is in good position. Increased central vascularity. Increased bilateral basilar atelectatic changes/infiltrates. Enlarged cardiac silhouette. Normal mediastinum and mikayla. Normal visualized pulmonary arteries. Atheromatous plaques of the visualized aortic arch and descending thoracic aorta. Diffuse spondylosis of the visualized thoracic spine. Normal visualized ribs, clavicles. Degenerative joint disease. There is no demonstrated abnormality of the visualized soft tissue structures of the upper abdomen. RAD/Chest 1 View (Portable) IMPRESSION: Endotracheal tube is in good position. Increased central vascularity. Increased bilateral basilar atelectatic changes/infiltrates. Enlarged cardiac silhouette. Reading Location: [place] [id number]
[2025-05-02] MEDS: Cefazolin 1 GM/50 ML BAG IV ×3 (05:08→21:42)
[2025-05-02] MEDS: 0.9% Saline Lock 10 ML Syringe IV (05:26)
[2025-05-02 05:32] LABS: Hematocrit 30.8 % (40-54); Hemoglobin 10.1 g/dL (13.0-16.5); Immature Granulocytes Count 0.300 X10^3/uL (0.0-0.0); Mean Corp Hgb Conc 32.8 g/dL (32-36); Mean Corpuscular Volume 102.0 fL (80-94); Mean Platelet Vol. 10.0 fl (6.2-12.0); NRBC Flagged by Analyzer 0.3 % (0-5); Platelet Count 598 K/mm3 (150-450); RBC Distribution Width CV 14.5 % (11.6-14.6); RBC Distribution Width SD 54.8 fl (35.1-43.9); Red Blood Count 3.02 M/mm3 (4.6-6.2); White Blood Count 13.9 K/mm3 (4.4-11.0)
[2025-05-02 06:03] LABS: AST(SGOT) 288 U/L (<=37); Alanine Aminotransfer ALT/SGPT 202 U/L (<=46); Albumin, Serum 2.9 g/dL (3.4-4.8); Alkaline Phosphatase 138 U/L (40-129); Anion Gap 12 (5-15); BUN 43 mg/dL (4-19); BUN/Creat Ratio 47.7 RATIO (10-20); Calcium,Total 8.9 mg/dL (7.6-11.0); Carbon Dioxide 31.9 mmol/L (21.0-32.0); Chloride 102 mmol/L (98-108); Estimated Creatinine Clearance 78.15 ml/min (50-250); Globulin 3.9 g/dL (2.2-4.2); Glucose 164 mg/dL (70-99); Potassium 2.8 mmol/L (3.3-5.1)
[2025-05-02 06:04] LABS: Allen Test Positive; Base Excess 11 mmol/L (-2 to +2); FI02 75.0; PEEP 10; PO2 62 mmHG (75-100); RR 14; SITE R Radial; SO2 91 % (94-98)
[2025-05-02] MEDS: TITRATION PARAMETER CHANGE 1 EACH IV (06:36)
[2025-05-02] MEDS: Propofol 10MG/Ml 1,000 MG/100 ML Bottle 11.4 MG CONT INF ×2 (06:41→13:13)
--- NOTE | 2025-05-02 06:55 | PN.SURG_ITS ---
Subjective Subjective Mr. Kirby was more alert again this morning. Unfortunately, has had increasing vent requirements over the last day or so. Had PEG tube placed yesterday. Objective Data Objective Data Vital Signs: Vital Signs Temp Pulse Resp BP Pulse Ox O2 Del Method O2 Flow Rate 100.1 F H 80 14 120/54 L 93 Mechanical Ventilator 75 05/02/25 06:00 05/02/25 06:00 05/02/25 06:00 05/02/25 06:00 05/02/25 06:00 05/02/25 06:00 05/01/25 15:00 FiO2 75 05/02/25 06:00 Oxygen Flow Rate (L/min) 75 Oxygen Delivery Method Mechanical Ventilator Weight: 209 lb 3.499 oz Body Mass Index (BMI) 30.9 Intake & Output: Intake and Output for Last 24 Hours 04/30/25 05/01/25 05/02/25 23:59 23:59 23:59 Intake Total 2687.36 / 2929.85 1928.79 / 1952.48 301.08 / 301.08 Output Total 2400 / 2400 2075 / 2075 500 / 500 Balance 287.36 / 529.85 -146.21 / -122.52 -198.92 / -198.92 Lab / Micro Data 05/02/25 05:20 05/02/25 05:20 Labs: Laboratory Results - last 24 hr 05/01/25 06:05: Sodium 145, Potassium 3.0 L, Chloride 99, Carbon Dioxide 32.8 H, Anion Gap 14, BUN 40 H, Creatinine 0.97, Estim Creat Clear Calc 73.19, Est GFR (MDRD) Non-Af 80, BUN/Creatinine Ratio 41.3 H, Glucose 137 H, Calcium 9.0, Total Bilirubin 0.32, AST 330 H, ALT 221 H, Alkaline Phosphatase 146 H, Total Protein 6.6, Albumin 2.8 L, Globulin 3.8, Albumin/Globulin Ratio 0.7 L, Lipase 91 H 05/02/25 05:20: WBC 13.9 H, RBC 3.02 L, Hgb 10.1 L, Hct 30.8 L, MCV 102.0 H, MCH 33.4 H, MCHC 32.8, RDW Std Deviation 54.8 H, RDW Coeff of Nicola 14.5, Plt Count 598 H, MPV 10.0, Immature Gran % (Auto) 2.200 H, Neut % (Auto) 81.3 H, Lymph % (Auto) 9.3 L, Dickens % (Auto) 6.2, Eos % (Auto) 0.6, Baso % (Auto) 0.4, Absolute Neuts (auto) 11.3 H, Absolute Lymphs (auto) 1.30, Nucleated RBC % 0.3, Sodium 146 H, Potassium 2.8 L, Chloride 102, Carbon Dioxide 31.9, Anion Gap 12, BUN 43 H, Creatinine 0.90, Estim Creat Clear Calc 78.15, Est GFR (MDRD) Non-Af 88, B UN/Creatinine Ratio 47.7 H, Glucose 164 H, Calcium 8.9, Total Bilirubin 0.19, A ST 288 H, ALT 202 H, Alkaline Phosphatase 138 H, Total Protein 6.8, Albumin 2.9 L, Globulin 3.9, Albumin/Globulin Ratio 0.7 L Micro: Microbiology 04/27/25 16:30 Urine Catheter - Pichardo Urine Culture - Final Culture exhibits no growth. 04/27/25 16:45 Blood Culture (Wb) - Left Forearm Blood Culture - Preliminary No growth in 48 hours. 04/27/25 16:50 Blood Culture (Wb) - Anticubital Right Blood Culture - Preliminary No growth in 48 hours. 04/26/25 14:50 Sputum, Induced/Lukens Gram Stain - Final 04/26/25 14:50 Sputum, Induced/Lukens Respiratory Culture - Final Streptococcus group C 04/26/25 12:15 Sputum, Induced/Lukens Gram Stain - Final 04/26/25 12:15 Sputum, Induced/Lukens Respiratory Culture - Final Streptococcus group C 04/23/25 12:25 Sputum, Induced/Lukens Gram Stain - Final 04/23/25 12:25 Sputum, Induced/Lukens Respiratory Culture - Final Mixed normal respiratory randi. No Streptococcus pneumoniae, beta-hemolytic Streptococcus or Staphylococcus aureus isolated. ABG Data ABG results: ABG 05/02/25 06:00 Specimen Type ART Sample Site R Radial pH 7.42 Bicarbonate Actual 35.5 H Total CO2 37 Base Excess 11 H O2 Saturation 91 L O2 % 75.0 ABG pCO2 54.2 H ABG pO2 62 L Herson Test Positive Respiration Rate 14 O2 Delivery Device Not entered Vent Mode AC Tidal Volume 500.0 POC PEEP 10 Radiography Diagnostic Testing: Radiology Impression Chest X-Ray 05/02/25 04:37 IMPRESSION: Endotracheal tube is in good position. Increased central vascularity. Increased bilateral basilar atelectatic changes/infiltrates. Enlarged cardiac silhouette. Reading Location: [place] [id number] Physical Exam Const Constitutional Narrative: intubated, alert this morning HEENT head/scalp atraumatic, external ears normal and external nose normal Neck Neck Narrative: L neck incision site with skin glue intact, well-healing. Resp Resp Narrative: intubated, on mechanical ventilation Cardio Rate: tachycardic Skin no rashes or lesions noted Neuro moves all extremities Sensorium / Orientation: alert Assessment & Plan Assessment/Plan (1) Left carotid stenosis: PLAN: POD # 11 left CEA complicated by alcohol withdrawal, respiratory failure requiring intubation, pneumonia on IV abx; surgical site well-healing - cont atbx/vent per ICU; he is not able to be weaned from vent at this time so plan remains for tracheostomy likely next week with ENT - received PEG tube yesterday -DVT/GI prophylaxis Charges/Coding Procedures Integumentary [id number]: [id number] Global Visit
[2025-05-02] MEDS: Thiamine Hydrochloride 100 MG Tablet PO (07:41)
[2025-05-02] MEDS: Chlorhexidine 15 ML PO ×2 (07:41→21:38)
[2025-05-02] MEDS: Polyethylene Glycol 3350 17 GM PACKET PO (07:43)
[2025-05-02] MEDS: Nicotine (PBKC) 21 MG Patch TD (07:43)
[2025-05-02] MEDS: Senna/Docusate Sodium 1 Tablet 2 TABLET PO ×2 (07:44→21:37)
--- NOTE | 2025-05-02 07:44 | PCM.PN.INT ---
Assessment & Plan Assessment/Plan (1) Alcohol withdrawal: (2) Acute respiratory failure with hypoxia and hypercapnia: PLAN: Plan RECOMMENDATIONS: 1. Continue assist-control mode of mechanical ventilation. Continue to wean FiO2 and PEEP as tolerated. 2. Continue propofol and fentanyl. Goal to maintain RASS of -1 to 1. 3. Tentative plans for tracheostomy on Monday. 4. Continue gentle diuresis. 5. Continue beta-asael as ordered. 6. Continue antimicrobials. 7. Continue bronchodilator therapy and corticosteroids. 8. Continue nutritional support via tube feeding. 9. Continue appropriate GI and DVT prophylaxis. IMPRESSIONS: 1. Acute hypoxemic and hypercapnic respiratory failure Most likely secondary to underlying COPD coupled with inability to compensate for metabolic demands of acute alcohol withdrawal and respiratory depression induced by sedative medication administration. Accordingly, the patient was emergently intubated on April 23. His hospital course has been complicated by the development of Streptococcus pneumonia, for which he remains on antimicrobials. The patient will be continued on bronchodilator therapy and corticosteroids, with a goal to wean FiO2 and PEEP to maintain saturations at or above 90%. In addition, given his net positive volume status, we will continue attempts at diuresis, as tolerated by hemodynamics and renal function. Given that the patient is ventilator day #10 and it seems highly unlikely that he will be able to be successfully extubated, tentative plans are to proceed with tracheostomy on Monday. The patient is already status post PEG tube placement. CTA chest completed this morning ruled out pulmonary embolism. 2. Acute alcohol withdrawal The patient was ultimately intubated as a consequence of his acute alcohol withdrawal. However, with supportive care, he is now outside of his window for acute alcohol withdrawal symptoms. Continue supportive care as noted above. 3. History of LVH with LVOT Continue supportive care as noted above. Caution needs to be exercised to avoid hypotension as this will increase his left ventricular outflow gradient. If vasopressors are needed, recommend initiation of phenylephrine. Recommend continuation of beta-asael for heart rate control. 4. History of bilateral carotid artery stenosis status post left carotid endarterectomy Continue routine postoperative care per vascular surgery recommendations. 5. History of chronic tobacco and alcohol dependency Complicates care, management, recovery and prognosis. Continue supportive measures as noted above. Continue tube feeding for nutritional support. Monitor electrolytes closely for evidence of refeeding syndrome. TIME: 34 minutes of critical care time, independent of procedures, was spent addressing the patient's acute hypoxemic and hypercapnic respiratory failure, acute alcohol withdrawal, review of all data and collaboration with the care team. Subjective Subjective The patient was seen and examined at the bedside this morning. Events from the last 24 hours have been reviewed. The patient currently has low-grade fevers but remains otherwise hemodynamically stable on assist-control mode of mechanical ventilation with an FiO2 requirement of 75%. The patient is documented to be overall net +5 L for the hospitalization. White blood cell count is stable at 14,000 with a hemoglobin of 10.1 g/dL and platelet count of 598,000. Arterial blood gas this morning was notable for a pH of 7.42 with a pCO2 of 54 and pO2 of 62. Chemistry profile was notable for a sodium of 146 with a potassium of 2.8 and creatinine of 0.9. CTA chest was performed this morning and ruled out pulmonary embolism. There was continued evidence of a bibasilar airspace opacities. The patient underwent successful PEG tube placement yesterday. ENT is tentatively planning for tracheostomy placement on Monday. Objective Data Objective Data The patient's most recent lab work, culture data and imaging studies have all been personally reviewed. Sputum culture is demonstrating growth of group C Streptococcus. Vital Signs: Vital Signs Temp Pulse Resp BP Pulse Ox O2 Del Method O2 Flow Rate 100.3 F H 91 14 125/52 H 95 Mechanical Ventilator 75 05/02/25 07:00 05/02/25 07:01 05/02/25 07:01 05/02/25 07:00 05/02/25 07:01 05/02/25 07:00 05/01/25 15:00 FiO2 75 05/02/25 07:01 Oxygen Flow Rate (L/min) 75 Oxygen Delivery Method Mechanical Ventilator Weight: 209 lb 3.499 oz Body Mass Index (BMI) 30.9 Intake & Output: Intake and Output for Last 24 Hours 04/30/25 05/01/25 05/02/25 23:59 23:59 23:59 Intake Total 2687.36 / 2929.85 1928.79 / 1952.48 322.19 / 322.19 Output Total 2400 / 2400 2075 / 2075 500 / 500 Balance 287.36 / 529.85 -146.21 / -122.52 -177.81 / -177.81 Lab / Micro Data Attestation: I reviewed the patient's lab results. 05/02/25 05:20 05/02/25 05:20 Labs: Laboratory Results - last 24 hr 05/02/25 05:20: WBC 13.9 H, RBC 3.02 L, Hgb 10.1 L, Hct 30.8 L, MCV 102.0 H, MCH 33.4 H, MCHC 32.8, RDW Std Deviation 54.8 H, RDW Coeff of Nicola 14.5, Plt Count 598 H, MPV 10.0, Immature Gran % (Auto) 2.200 H, Neut % (Auto) 81.3 H, Lymph % (Auto) 9.3 L, [place] % (Auto) 6.2, Eos % (Auto) 0.6, Baso % (Auto) 0.4, Absolute Neuts (auto) 11.3 H, Absolute Lymphs (auto) 1.30, Nucleated RBC % 0.3, Sodium 146 H, Potassium 2.8 L, Chloride 102, Carbon Dioxide 31.9, Anion Gap 12, BUN 43 H, Creatinine 0.90, Estim Creat Clear Calc 78.15, Est GFR (MDRD) Non-Af 88, BUN/Creatinine Ratio 47.7 H, Glucose 164 H, Calcium 8.9, Total Bilirubin 0.19, AST 288 H, ALT 202 H, Alkaline Phosphatase 138 H, Total Protein 6.8, Albumin 2.9 L, Globulin 3.9, Albumin/Globulin Ratio 0.7 L Micro: Microbiology 04/27/25 16:30 Urine Catheter - Pichardo Urine Culture - Final Culture exhibits no growth. 04/27/25 16:45 Blood Culture (Wb) - Left Forearm Blood Culture - Preliminary No growth in 48 hours. 04/27/25 16:50 Blood Culture (Wb) - Anticubital Right Blood Culture - Preliminary No growth in 48 hours. 04/26/25 14:50 Sputum, Induced/Lukens Gram Stain - Final 04/26/25 14:50 Sputum, Induced/Lukens Respiratory Culture - Final Streptococcus group C 04/26/25 12:15 Sputum, Induced/Lukens Gram Stain - Final 04/26/25 12:15 Sputum, Induced/Lukens Respiratory Culture - Final Streptococcus group C 04/23/25 12:25 Sputum, Induced/Lukens Gram Stain - Final 04/23/25 12:25 Sputum, Induced/Lukens Respiratory Culture - Final Mixed normal respiratory randi. No Streptococcus pneumoniae, beta-hemolytic Streptococcus or Staphylococcus aureus isolated. ABG Data ABG results: ABG 05/02/25 06:00 Specimen Type ART Sample Site R Radial pH 7.42 Bicarbonate Actual 35.5 H Total CO2 37 Base Excess 11 H O2 Saturation 91 L O2 % 75.0 ABG pCO2 54.2 H ABG pO2 62 L Hesron Test Positive Respiration Rate 14 O2 Delivery Device Not entered Vent Mode AC Tidal Volume 500.0 POC PEEP 10 Radiography Diagnostic Testing: Radiology Impression Chest X-Ray 05/02/25 04:37 IMPRESSION: Endotracheal tube is in good position. Increased central vascularity. Increased bilateral basilar atelectatic changes/infiltrates. Enlarged cardiac silhouette. Reading Location: [place] [id number] Physical Exam Const Constitutional Narrative: Intubated and mechanically ventilated. No ventilator dyssynchrony noted. General Appearance: ill appearing and patient mechanically ventilated HEENT normocephalic and head/scalp atraumatic Mouth: endotracheal tube in place and OG tube in place Eyes PERRL, EOMs intact bilaterally and conjunctivae normal Neck supple General: trachea midline Chest inspection of chest normal Resp Auscultation: rhonchi and diminished lung sounds; Negative for rales or wheezes Cardio regular rate, regular rhythm, S1 normal heart sound and S2 normal heart sound GI normal to inspection, nondistended, normoactive bowel sounds Extremity General Extremity: edema; Negative for clubbing Skin no rashes or lesions noted Neuro Sensorium / Orientation: sedated on vent Charges/Coding Procedures Hospitalists Procedures: [address]25 Critical Care 1st Hr
[2025-05-02] MEDS: Pantoprazole Sodium 40 MG in 0.9% Normal Saline (100mL MB+) 100 ML 300 MG IV (07:57)
--- NOTE | 2025-05-02 08:16 | CT_ITS ---
PROCEDURE: CTA CHEST W/WO CONTRAST 05/02/2025 REASON FOR EXAM: ACUTE HYPOXEMIC RESPIRATORY FAILURE TECHNIQUE: Procedure Code: [id number] Modality: CT Procedure: CTA CHEST W/WO CONTRAST Multiplanar Sagittal and Coronal images were obtained. CONTRAST: Isovue 370 VOLUME: 100 mL One or more dose reduction techniques were used (e.g., Automated exposure control, adjustment of the mA and/or kV according to patient size, use of iterative reconstruction technique). RADIATION DOSE SUMMARY: CTDlvol: 15.64 mGy DLP: 560.3 mGycm COMPARISON: None. # of known CTs in the past 12 months: 0. # of known Cardiac Nuclear Medicine Studies in the past 12 months: 0. FINDINGS: Thoracic Aorta: No aneurysm. Heart: Unremarkable. Atherosclerotic calcifications. Pulmonary Vessels: Patent. Hardware: Unremarkable. Lymph nodes: No lymphadenopathy. Lungs and Airways: Airspace opacities in in the lower lobes concerning for pneumonia. Pleura: Small pleural effusion. Upper Abdomen: Unremarkable. Bones: No acute bony abnormalities. Lines: ET tube terminates 4 cm above the bridgett. Monitor electrodes overlie the chest. CT/CTA Chest W/WO Contrast IMPRESSION: No evidence of pulmonary embolism. Airspace opacities in the lower lobes consistent with pneumonia. Reading Location: [id number]
[2025-05-02] MEDS: Potassium Chloride 10mEq/100mL 10 MEQ/100 ML IV.SOLN. 100 MEQ IV BOLUS ×4 (09:20→13:04)
[2025-05-02] MEDS: Potassium Chloride Oral Soln 20 MEQ/15 ML UDC 40 MEQ PO (10:12)
--- NOTE | 2025-05-02 10:58 | CASEMGMT ---
Per ICU rounds and chart review, pt has a functioning PEG now and pt's Trach procedure is tentatively scheduled for Monday. [facility] notified. Updated clinicals sent to [facility] via [employer]. CM to continue to follow.
[2025-05-02] MEDS: Scopolamine 1mg/72hr Patch 1 PATCH TD (12:06)
[2025-05-02] MEDS: Vital High Protein 1,000 ML 55 ML GT (12:10)
--- NOTE | 2025-05-02 14:13 | WOUNDNOTE ---
wound photo: sacrum
--- NOTE | 2025-05-02 14:55 | RAD_ITS ---
PROCEDURE: Progressive bibasilar infiltrates. 05/02/2025 REASON FOR EXAM: DYSPNEA TECHNIQUE: Frontal view of the chest. COMPARISON: May 02, 2025. FINDINGS: Hardware: Endotracheal tube is in-situ. The tip is at 5.1 cm proximal the bridgett. An orogastric tube is seen with the tip below the left hemidiaphragm. Heart: Borderline cardiomegaly. Lungs: Progressive infiltrates at the lung bases. Bones: Degenerative changes are identified within the thoracic spine. RAD/Chest 1 View (Portable) IMPRESSION: The tip of the endotracheal tube is at 5.1 cm proximal the bridgett. An orogastr ic tube is seen with the tip below the left hemidiaphragm. Reading Location: [id number]
[2025-05-02] MEDS: fentaNYL drip 100 ML 20 MCG CONT INF ×2 (15:32→20:33)
[2025-05-02] MEDS: Albuterol 2.5 MG/3 ML VIAL.NEB. INHALATION (15:53)
[2025-05-02] MEDS: Propofol 10MG/Ml 1,000 MG/100 ML Bottle 17.1 MG CONT INF (18:18)
[2025-05-03] VITALS (44 sets, daily range): BP systolic 75–135; BP diastolic 37–79; PULSE 57–101; RESP 11–18; TEMP 36.9–37.6; O2SAT 90–97; BMI 30.6
[2025-05-03] MEDS: Propofol 10MG/Ml 1,000 MG/100 ML Bottle 17.1 MG CONT INF ×2 (00:09→05:03)
[2025-05-03] MEDS: Vital High Protein 1,000 ML 55 ML GT (01:15)
[2025-05-03] MEDS: fentaNYL drip 100 ML 20 MCG CONT INF ×3 (01:24→13:27)
[2025-05-03 04:45] LABS: Base Excess 9 mmol/L (-2 to +2); FI02 75.0; PEEP 10; PO2 97 mmHG (75-100); RR 14; SITE L Radial; SO2 98 % (94-98)
--- NOTE | 2025-05-03 04:56 | RAD_ITS ---
PROCEDURE: CHEST 1 VIEW (PORTABLE) 05/03/2025 REASON FOR EXAM: RESPIRATORY FAILURE TECHNIQUE: Frontal view of the chest. COMPARISON: 05/02/2025. FINDINGS: Endotracheal tube is in good position. Mild bilateral basilar pulmonary infiltrates, slightly improved. Minimal bilateral pleural effusions. Enlarged cardiac silhouette. Normal mediastinum and mikayla. Normal visualized pulmonary arteries. Atheromatous plaques of the visualized aortic arch and descending thoracic aorta. Diffuse spondylosis of the visualized thoracic spine. Normal visualized ribs, clavicles. Degenerative joint disease. There is no demonstrated abnormality of the visualized soft tissue structures of the upper abdomen. RAD/Chest 1 View (Portable) IMPRESSION: Endotracheal tube is in good position. Mild bilateral basilar pulmonary infiltrates, slightly improved. Minimal bilateral pleural effusions. Enlarged cardiac silhouette. Reading Location: [facility] [address]
[2025-05-03 05:45] LABS: Hematocrit 32.5 % (40-54); Hemoglobin 10.6 g/dL (13.0-16.5); Immature Granulocytes Count 0.400 X10^3/uL (0.0-0.0); Mean Corp Hgb Conc 32.6 g/dL (32-36); Mean Corpuscular Volume 101.6 fL (80-94); Mean Platelet Vol. 10.0 fl (6.2-12.0); NRBC Flagged by Analyzer 0.2 % (0-5); Platelet Count 671 K/mm3 (150-450); RBC Distribution Width CV 14.5 % (11.6-14.6); RBC Distribution Width SD 54.5 fl (35.1-43.9); Red Blood Count 3.20 M/mm3 (4.6-6.2); White Blood Count 15.1 K/mm3 (4.4-11.0)
[2025-05-03 06:00] LABS: CPK Total, Creatine Kinase 988 U/L (24-195); Triglycerides 254 mg/dL
[2025-05-03 06:03] LABS: Anion Gap 13 (5-15); BUN 45 mg/dL (4-19); BUN/Creat Ratio 48.5 RATIO (10-20); Calcium,Total 9.0 mg/dL (7.6-11.0); Carbon Dioxide 32.0 mmol/L (21.0-32.0); Chloride 104 mmol/L (98-108); Estimated Creatinine Clearance 75.99 ml/min (50-250); Glucose 135 mg/dL (70-99); Potassium 3.5 mmol/L (3.3-5.1)
[2025-05-03] MEDS: Cefazolin 1 GM/50 ML BAG IV ×3 (06:45→21:48)
[2025-05-03] MEDS: 0.9% Normal Saline (250mL Bag) 250 ML 15 ML IV ×2 (06:50→18:05)
[2025-05-03] MEDS: Chlorhexidine 15 ML PO ×2 (08:16→21:50)
[2025-05-03] MEDS: CHLORHEXIDINE GLUC 2% CLOTH 1 EACH TOWELETTE TOPICAL (08:16)
[2025-05-03] MEDS: Thiamine Hydrochloride 100 MG Tablet PO (08:17)
[2025-05-03] MEDS: Nicotine (PBKC) 21 MG Patch TD (10:20)
[2025-05-03] MEDS: Polyethylene Glycol 3350 17 GM PACKET PO (10:20)
[2025-05-03] MEDS: Senna/Docusate Sodium 1 Tablet 2 TABLET PO ×2 (10:21→21:48)
[2025-05-03] MEDS: Pantoprazole Sodium 40 MG in 0.9% Normal Saline (100mL MB+) 100 ML 300 MG IV (10:39)
[2025-05-03] MEDS: Propofol 10MG/Ml 1,000 MG/100 ML Bottle 16.9 MG CONT INF (11:25)
--- NOTE | 2025-05-03 12:22 | PCM.PN.TICU ---
Objective Data Objective Data Vital Signs: Vital Signs Last response Temperature 37.1 C 05/03/25 11:00 Temperature Source Core 05/03/25 11:00 Pulse Rate 77 05/03/25 11:37 Pulse Strength Weak (1+) 05/03/25 10:00 Respiratory Rate 14 05/03/25 11:12 Respiratory Effort Mechanically Ventilated 05/03/25 08:00 Respiratory Depth Normal 05/03/25 04:00 Respiratory Pattern Normal 05/03/25 11:12 Blood Pressure 123/59 H 05/03/25 11:37 Blood Pressure Mean 80 05/03/25 11:37 Blood Pressure Source Monitor 05/03/25 11:37 Blood Pressure Position Semi-Fowlers 05/03/25 11:37 Blood Pressure Location Left Arm 05/03/25 11:37 Baseline BP 164/83 04/21/25 16:45 Pulse Ox 94 05/03/25 11:12 Oxygen Delivery Method Mechanical Ventilator 05/03/25 11:00 Oxygen Flow Rate (L/min) 75 05/03/25 11:00 Fraction of Inspired Oxygen (FIO2) 70 05/03/25 11:12 EtCo2 - Document during CPR and with ROSC 75 05/02/25 14:00 CLA-BSI maintained Yes 04/22/25 16:00 I&O: I&O Last 24 Hours 05/02/25 05/03/25 05/03/25 23:59 11:59 23:59 Intake Total 1299.81 / 3119.70 1628.59 / 1628.59 Output Total 900 / 1400 1800 / 1800 Balance 399.81 / 1719.70 -171.41 / -171.41 I&O: Total Stay 03/20/25 15:10 thru 05/03/25 11:07 Intake Total 30845.74 Output Total 11612 Balance 6531.74 Current Meds Ordered / Administered: Current meds ordered / Administered Generic Name Dose Route Start Last Admin Trade Name Freq PRN Reason Stop Dose Admin Acetaminophen 650 mg 04/27/25 14:56 04/29/25 16:36 Acetaminophen 650 Mg/20 Ml Udc GT 650 mg Q4H PRN PRN Administration fever pain Albuterol Sulfate 2.5 mg 04/21/25 17:07 05/02/25 15:53 Albuterol 2.5 Mg/3 Ml Vial.Neb. INHALATION 2.5 mg Q2H PRN PRN Administration SOB &/OR WHEEZING Albuterol/Ipratropium 3 ml 04/23/25 13:30 05/03/25 07:16 Ipratropium/Albuterol Sulfate 3 Ml Ampul.Neb INHALATION 3 ml Q6H.RT ANNIA Administration Aspirin 81 mg 04/29/25 08:00 05/03/25 08:18 Aspirin 81 Mg Tab.Chew GT 81 mg BREAKFAST ANNIA Administration Atorvastatin Calcium 40 mg 04/21/25 22:00 05/02/25 21:38 Atorvastatin Calcium 40 Mg Tablet PO 40 mg QHS ANNIA Administration Chlorhexidine Gluconate 15 ml 04/23/25 22:00 05/03/25 08:16 Chlorhexidine 15 Ml PO 15 ml BID ANNIA Administration Chlorhexidine Gluconate 1 each 04/24/25 10:00 05/03/25 08:16 Chlorhexidine Gluc 2% Cloth 1 Each Towelette TOPICAL 1 each DAILY ANNIA Administration Cilostazol 100 mg 04/21/25 22:00 05/03/25 10:21 Cilostazol 50 Mg Tablet PO 100 mg BID ANNIA Administration Dicyclomine HCl 20 mg 04/23/25 01:06 Dicyclomine 10 Mg Capsule PO Q6H PRN PRN abdominal discomfort Docusate Sodium 100 mg 04/21/25 17:07 Docusate Sodium 100 Mg Capsule PO BID PRN PRN Constipation Enoxaparin Sodium 40 mg 04/22/25 10:00 05/03/25 10:20 Enoxaparin 40 Mg/0.4 Ml Syringe SC 40 mg DAILY ANNIA Administration Folic Acid 1 mg 04/23/25 08:00 05/03/25 08:18 Folic Acid 1 Mg Tablet PO 1 mg DAILY@0800 ANNIA Administration Furosemide 40 mg 04/29/25 10:00 05/03/25 10:20 Furosemide 40 Mg/4 Ml Vial IV 40 mg BIDLX ANNIA Administration Protocol Gabapentin 300 mg 04/23/25 01:06 Gabapentin 300 Mg Capsule PO Q8H PRN PRN moderate to severe anxiety Guaifenesin 10 ml 04/21/25 17:07 Guaifenesin 10 Ml Udc (200mg/10ml) PO Q4H PRN PRN COUGH Hydralazine HCl 10 mg 04/22/25 08:28 04/29/25 16:44 Hydralazine 20 Mg/Ml Vial IV 10 mg Q2H PRN PRN Administration SBP > 140mmHg Hydroxyzine Pamoate 50 mg 04/23/25 01:06 Hydroxyzine Erendira 25 Mg Capsule PO Q4H PRN PRN mild anxiety Fentanyl 100 mls @ 5 mls/hr 04/23/25 10:50 05/03/25 11:00 CONT INF 200 mcg/hr UD ANNIA 20 mls/hr Protocol Titration 50 MCG/HR Pantoprazole Sodium 40 mg/ 100 mls @ 300 mls/hr 04/24/25 10:00 05/03/25 11:07 Sodium Chloride IV Infused Q24 ANNIA Infusion Enteral Nutritional Formula 1,000 mls @ 40 mls/hr 04/24/25 11:15 05/03/25 10:41 Vital High Protein GT 40 mls/hr .Q25H ANNIA Infusion Sodium Chloride 250 mls @ 15 mls/hr 04/26/25 21:23 05/03/25 06:50 IV 15 mls/hr .[id number] PRN Administration Saline Flush Sodium Chloride 250 mls @ 15 mls/hr 04/26/25 21:23 05/01/25 05:45 IV Infused .[id number] PRN Infusion Additional IVPB Infusion Propofol 1,000 mg in 100 mls @ 5.622 mls/hr 04/28/25 08:50 05/03/25 11:25 Diprivan CONT INF 30 mcg/kg/min .Q12H ANNIA 16.9 mls/hr Protocol Administration 10 MCG/KG/MIN Cefazolin Sodium 1 gm in 50 mls @ 100 mls/hr 04/29/25 14:00 05/03/25 07:56 IV 05/06/25 06:01 Infused Q8 ANNIA Infusion Labetalol HCl 10 mg 04/22/25 08:28 05/02/25 05:04 Labetalol 20 Mg/4 Ml Vial IV 10 mg Q2H PRN PRN Administration SBP > 140mmHg Loperamide HCl 2 mg 04/23/25 01:06 Loperamide 2 Mg Capsule PO Q4H PRN PRN DIARRHEA/LOOSE STOOLS Methylprednisolone Sodium Succinate 40 mg 04/30/25 08:05 05/03/25 06:44 Methylprednisolone Sod Succ 40 Mg/Ml Vial IV 40 mg Q8 ANNIA Administration Metoprolol Succinate 50 mg 04/22/25 22:00 04/26/25 13:42 Metoprolol(Xl)Succ 50 Mg Tablet PO Not Given On Hold: 04/26/25 12:10 BID [facility] Protocol Multivitamins/Minerals 1 tablet 04/23/25 08:00 05/03/25 08:18 Multivitamins,Ther W-Minerals Tablet PO Not Given BREAKFAST [facility] Nicotine 21 mg 05/01/25 10:00 05/03/25 10:20 Nicotine (Pbkc) 21 Mg Patch TD 21 mg DAILY ANNIA Administration Ondansetron HCl 4 mg 04/21/25 17:07 05/02/25 14:19 Ondansetron 4 Mg/2 Ml Vial IV 4 mg Q8H PRN PRN Administration NAUSEA/VOMITING Polyethylene Glycol 17 gm 04/27/25 04:16 05/01/25 21:16 Polyethylene Glycol 3350 17 Gm Packet PO 17 gm DAILY PRN PRN Administration constipation Polyethylene Glycol 17 gm 04/29/25 10:00 05/03/25 10:20 Polyethylene Glycol 3350 17 Gm Packet PO 17 gm DAILY ANNIA Administration Scopolamine HBr 1 patch 04/26/25 11:15 05/02/25 12:06 Scopolamine 1mg/72hr Patch TD 1 patch Q3D ANNIA Administration Senna/Docusate Sodium 2 tablet 04/29/25 10:00 05/03/25 10:21 Senna/Docusate Sodium 1 Tablet PO 2 tablet BID ANNIA Administration Sodium Chloride 10 - 40 ml 04/21/25 16:59 05/02/25 05:26 0.9% Saline Lock 10 Ml Syringe IV 10 ml UD PRN Administration SALINE FLUSH Thiamine HCl 100 mg 04/23/25 08:00 05/03/25 08:17 Thiamine Hydrochloride 100 Mg Tablet PO 100 mg DAILYCM ANNIA Administration Lab / Micro Data 05/03/25 05:20 05/03/25 05:20 Labs: Laboratory Results - last 24 hr 05/03/25 05:20: WBC 15.1 H, RBC 3.20 L, Hgb 10.6 L, Hct 32.5 L, MCV 101.6 H, MCH 33.1 H, MCHC 32.6, RDW Std Deviation 54.5 H, RDW Coeff of Nicola 14.5, Plt Count 671 H, MPV 10.0, Immature Gran % (Auto) 2.700 H, Neut % (Auto) 79.7 H, Lymph % (Auto) 10.0 L, [place] % (Auto) 6.0, Eos % (Auto) 1.1, Baso % (Auto) 0.5, Absolute Neuts (auto) 12.0 H, Absolute Lymphs (auto) 1.51, Nucleated RBC % 0.2, Sodium 149 H, Potassium 3.5, Chloride 104, Carbon Dioxide 32.0, Anion Gap 13, BUN 45 H, Creatinine 0.92, Estim Creat Clear Calc 75.99, Est GFR (MDRD) Non-Af 86, BUN/Creatinine Ratio 48.5 H, Glucose 135 H, Calcium 9.0, Phosphorus 5.0 H, Total Creatine Kinase 988 H, Triglycerides 254 H Micro: Microbiology 04/27/25 16:45 Blood Culture (Wb) - Left Forearm Blood Culture - Final No growth in 5 days. 04/27/25 16:50 Blood Culture (Wb) - Anticubital Right Blood Culture - Final No growth in 5 days. ABG Data ABG results: ABG 05/03/25 04:41 Specimen Type ART Sample Site L Radial pH 7.45 Bicarbonate Actual 32.6 H Total CO2 34 Base Excess 9 H O2 Saturation 98 O2 % 75.0 ABG pCO2 46.7 H ABG pO2 97 Herson Test N/A Respiration Rate 14 O2 Delivery Device Adult Vent Vent Mode AC Tidal Volume 500.0 POC PEEP 10 Imaging Radiology Impression Chest X-Ray 05/02/25 14:55 IMPRESSION: The tip of the endotracheal tube is at 5.1 cm proximal the bridgett. An orogastric tube is seen with the tip below the left hemidiaphragm. Reading Location: [id number] Chest X-Ray 05/03/25 04:56 IMPRESSION: Endotracheal tube is in good position. Mild bilateral basilar pulmonary infiltrates, slightly improved. Minimal bilateral pleural effusions. Enlarged cardiac silhouette. [facility] Assessment and Plan . Assessment and plan: HPI Patient seen and examined Chart and data reviewed He is sedated - NAD MV 7-8 LPM, PIP 28, FiO2 0.7+10 TF via PEG Tracheostomy placement planned next week EXAM GEN sedated VS as above HEENT NENA NECK obese COR RRR CHEST diminished ABD soft EXT minimal edema SKIN w/d VIRAL sedated A/P 1. Acute respiratory failure requiring prolonged MV support 2. Delirium / encephalopathy 3. Alcohol abuse and w/d syndrome 4. VAP 5. Tobacco use 6. ASCVD / s/p CEA 7. Elevated LFT 8. Rhabdomyolysis 9. Hypernatremia -MV support -sedation / analgesia -tracheostomy placement planned -increase free water -follow LFT, CPK - stop statin -might need to stop propofol -receiving BD and steroids -IV ABX -VTE ppx Critical Care Time: 50 minutes The entirety of this encounter was done via Telemedicine
--- NOTE | 2025-05-03 13:34 | PCM.PN.SRG ---
Subjective Subjective No significant changes, remains on vent stable on the increased PEPP/FiO2 settings. Still with copious secretions. Anticipate trach early next week. Tolerating TF via PEG. Blood pressure readings low through the day using left arm which has known subclavian stenosis; switched back to right. Objective Data Objective Data Sedated, on vent, NAD RRR Resp non labored, synchronized with vent soft, NT,ND no edema Inc C/D/I, no erythema Vital Signs: Vital Signs Temp Pulse Resp BP Pulse Ox O2 Del Method O2 Flow Rate 98.8 F 84 14 123/59 H 91 Mechanical Ventilator 75 05/03/25 11:00 05/03/25 12:53 05/03/25 12:53 05/03/25 11:37 05/03/25 12:53 05/03/25 12:00 05/03/25 11:00 FiO2 75 05/03/25 12:53 Oxygen Flow Rate (L/min) 75 Oxygen Delivery Method Mechanical Ventilator Weight: 206 lb 9.17 oz Body Mass Index (BMI) 30.6 Intake & Output: Intake and Output for Last 24 Hours 05/01/25 05/02/25 05/03/25 23:59 23:59 23:59 Intake Total 1928.79 / 1952.48 3032.60 / 3119.70 1945.35 / 1945.35 Output Total 2075 / 2075 1400 / 1400 2600 / 2600 Balance -146.21 / -122.52 1632.60 / 1719.70 -654.65 / -654.65 Lab / Micro Data 05/03/25 05:20 05/03/25 05:20 Labs: Laboratory Results - last 24 hr 05/03/25 05:20: WBC 15.1 H, RBC 3.20 L, Hgb 10.6 L, Hct 32.5 L, MCV 101.6 H, MCH 33.1 H, MCHC 32.6, RDW Std Deviation 54.5 H, RDW Coeff of Nicola 14.5, Plt Count 671 H, MPV 10.0, Immature Gran % (Auto) 2.700 H, Neut % (Auto) 79.7 H, Lymph % (Auto) 10.0 L, [place] % (Auto) 6.0, Eos % (Auto) 1.1, Baso % (Auto) 0.5, Absolute Neuts (auto) 12.0 H, Absolute Lymphs (auto) 1.51, Nucleated RBC % 0.2, Sodium 149 H, Potassium 3.5, Chloride 104, Carbon Dioxide 32.0, Anion Gap 13, BUN 45 H, Creatinine 0.92, Estim Creat Clear Calc 75.99, Est GFR (MDRD) Non-Af 86, BUN/Creatinine Ratio 48.5 H, Glucose 135 H, Calcium 9.0, Phosphorus 5.0 H, Total Creatine Kinase 988 H, Triglycerides 254 H Micro: Microbiology 04/27/25 16:45 Blood Culture (Wb) - Left Forearm Blood Culture - Final No growth in 5 days. 04/27/25 16:50 Blood Culture (Wb) - Anticubital Right Blood Culture - Final No growth in 5 days. 04/27/25 16:30 Urine Catheter - Pichardo Urine Culture - Final Culture exhibits no growth. 04/26/25 14:50 Sputum, Induced/Lukens Gram Stain - Final 04/26/25 14:50 Sputum, Induced/Lukens Respiratory Culture - Final Streptococcus group C 04/26/25 12:15 Sputum, Induced/Lukens Gram Stain - Final 04/26/25 12:15 Sputum, Induced/Lukens Respiratory Culture - Final Streptococcus group C 04/23/25 12:25 Sputum, Induced/Lukens Gram Stain - Final 04/23/25 12:25 Sputum, Induced/Lukens Respiratory Culture - Final Mixed normal respiratory randi. No Streptococcus pneumoniae, beta-hemolytic Streptococcus or Staphylococcus aureus isolated. ABG Data ABG results: ABG 05/03/25 04:41 Specimen Type ART Sample Site L Radial pH 7.45 Bicarbonate Actual 32.6 H Total CO2 34 Base Excess 9 H O2 Saturation 98 O2 % 75.0 ABG pCO2 46.7 H ABG pO2 97 Herson Test N/A Respiration Rate 14 O2 Delivery Device Adult Vent Vent Mode AC Tidal Volume 500.0 POC PEEP 10 Radiography Diagnostic Testing: Radiology Impression Chest X-Ray 05/02/25 14:55 IMPRESSION: The tip of the endotracheal tube is at 5.1 cm proximal the bridgett. An orogastric tube is seen with the tip below the left hemidiaphragm. Reading Location: [facility] Chest X-Ray 05/03/25 04:56 IMPRESSION: Endotracheal tube is in good position. Mild bilateral basilar pulmonary infiltrates, slightly improved. Minimal bilateral pleural effusions. Enlarged cardiac silhouette. Reading [facility] Assessment & Plan Assessment/Plan (1) Left carotid stenosis: PLAN: POD # 12 left CEA complicated by alcohol withdrawal, respiratory failure requiring intubation, pneumonia -cont atbx for pneumonia per ICU -failure to wean vent, trach early in week -TF via PEG -DVT/GI prophylaxis -cont ASA; plavix on hold for trach, statin on hold due to elevated CK -continue soft restraints to avoid inadvertent extubation
[2025-05-03] MEDS: Propofol 10MG/Ml 1,000 MG/100 ML Bottle 14.1 MG CONT INF ×2 (16:16→21:48)
[2025-05-03] MEDS: fentaNYL drip 100 ML 17.5 MCG CONT INF ×2 (18:05→23:11)
[2025-05-03] MEDS: Vital High Protein 1,000 ML 40 ML GT (23:10)
[2025-05-04] VITALS (34 sets, daily range): BP systolic 103–160; BP diastolic 44–80; PULSE 54–94; RESP 13–22; TEMP 37.2–37.7; O2SAT 92–96; BMI 30.7
[2025-05-04] MEDS: Propofol 10MG/Ml 1,000 MG/100 ML Bottle 11.2 MG CONT INF (03:50)
[2025-05-04] MEDS: fentaNYL drip 100 ML 17.5 MCG CONT INF ×4 (04:43→21:58)
[2025-05-04 05:09] LABS: Hematocrit 30.8 % (40-54); Hemoglobin 9.9 g/dL (13.0-16.5); Immature Granulocytes Count 0.330 X10^3/uL (0.0-0.0); Mean Corp Hgb Conc 32.1 g/dL (32-36); Mean Corpuscular Volume 101.3 fL (80-94); Mean Platelet Vol. 9.8 fl (6.2-12.0); NRBC Flagged by Analyzer 0 % (0-5); Platelet Count 629 K/mm3 (150-450); RBC Distribution Width CV 14.4 % (11.6-14.6); RBC Distribution Width SD 53.0 fl (35.1-43.9); Red Blood Count 3.04 M/mm3 (4.6-6.2); White Blood Count 14.9 K/mm3 (4.4-11.0)
[2025-05-04] MEDS: Cefazolin 1 GM/50 ML BAG IV ×3 (05:12→21:59)
[2025-05-04 05:33] LABS: CPK Total, Creatine Kinase 954 U/L (24-195)
[2025-05-04 05:34] LABS: AST(SGOT) 115 U/L (<=37); Alanine Aminotransfer ALT/SGPT 90 U/L (<=46); Albumin, Serum 2.9 g/dL (3.4-4.8); Alkaline Phosphatase 108 U/L (40-129); Anion Gap 11 (5-15); BUN 45 mg/dL (4-19); BUN/Creat Ratio 57.9 RATIO (10-20); Calcium,Total 8.8 mg/dL (7.6-11.0); Carbon Dioxide 33.6 mmol/L (21.0-32.0); Chloride 104 mmol/L (98-108); Estimated Creatinine Clearance 87.65 ml/min (50-250); Globulin 3.6 g/dL (2.2-4.2); Glucose 153 mg/dL (70-99); Potassium 3.1 mmol/L (3.3-5.1)
[2025-05-04] MEDS: Potassium Chloride 10mEq/100mL 10 MEQ/100 ML IV.SOLN. 100 MEQ IV BOLUS ×8 (06:11→20:01)
[2025-05-04] MEDS: Thiamine Hydrochloride 100 MG Tablet PO (07:38)
[2025-05-04] MEDS: Nicotine (PBKC) 21 MG Patch TD (07:38)
[2025-05-04] MEDS: Polyethylene Glycol 3350 17 GM PACKET PO (07:38)
[2025-05-04] MEDS: Senna/Docusate Sodium 1 Tablet 2 TABLET PO ×2 (07:38→21:59)
[2025-05-04] MEDS: CHLORHEXIDINE GLUC 2% CLOTH 1 EACH TOWELETTE TOPICAL (07:39)
[2025-05-04] MEDS: Chlorhexidine 15 ML PO ×2 (07:39→21:58)
[2025-05-04] MEDS: 0.9% Saline Lock 10 ML Syringe IV (07:40)
[2025-05-04] MEDS: Pantoprazole Sodium 40 MG in 0.9% Normal Saline (100mL MB+) 100 ML 300 MG IV (07:40)
--- NOTE | 2025-05-04 10:28 | PN.SURG_ITS ---
Subjective Subjective No new events. Down some on FiO2, still with high PEEP and copious secretions. Stephen TF. Objective Data Objective Data Sedated, on vent, NAD RRR Resp non labored abd soft,NT,ND trace global edema Inc C/D/I no erythema Vital Signs: Vital Signs Temp Pulse Resp BP Pulse Ox O2 Del Method O2 Flow Rate 99.0 F 65 13 146/66 H 96 Mechanical Ventilator 75 05/04/25 10:00 05/04/25 10:00 05/04/25 10:00 05/04/25 10:00 05/04/25 10:00 05/04/25 10:00 05/03/25 11:00 FiO2 55 05/04/25 10:00 Oxygen Flow Rate (L/min) 75 Oxygen Delivery Method Mechanical Ventilator Weight: 207 lb 14.334 oz Body Mass Index (BMI) 30.7 Intake & Output: Intake and Output for Last 24 Hours 05/02/25 05/03/25 05/04/25 23:59 23:59 23:59 Intake Total 3032.60 / 3119.70 3504.18 / 3779.67 1578.04 / 1578.04 Output Total 1400 / 1400 2950 / 4150 1700 / 1700 Balance 1632.60 / 1719.70 554.18 / -370.33 -121.96 / -121.96 Lab / Micro Data 05/04/25 05:00 05/04/25 05:00 Labs: Laboratory Results - last 24 hr 05/04/25 05:00: WBC 14.9 H, RBC 3.04 L, Hgb 9.9 L, Hct 30.8 L, MCV 101.3 H, MCH 32.6 H, MCHC 32.1, RDW Std Deviation 53.0 H, RDW Coeff of Nicola 14.4, Plt Count 629 H, MPV 9.8, Immature Gran % (Auto) 2.200 H, Neut % (Auto) 81.5 H, Lymph % (Auto) 9.8 L, [place] % (Auto) 5.3, Eos % (Auto) 0.7, Baso % (Auto) 0.5, Absolute Neuts (auto) 12.1 H, Absolute Lymphs (auto) 1.46, Nucleated RBC % 0, Sodium 148 H, Potassium 3.1 L, Chloride 104, Carbon Dioxide 33.6 H, Anion Gap 11, BUN 45 H, Creatinine 0.78, Estim Creat Clear Calc 87.65, Est GFR (MDRD) Non-Af 92, B UN/Creatinine Ratio 57.9 H, Glucose 153 H, Calcium 8.8, Total Bilirubin 0.22, A ST 115 H, ALT 90 H, Alkaline Phosphatase 108, Total Creatine Kinase 954 H, Total Protein 6.5, Albumin 2.9 L, Globulin 3.6, Albumin/Globulin Ratio 0.8 L Micro: Microbiology 04/27/25 16:45 Blood Culture (Wb) - Left Forearm Blood Culture - Final No growth in 5 days. 04/27/25 16:50 Blood Culture (Wb) - Anticubital Right Blood Culture - Final No growth in 5 days. 04/27/25 16:30 Urine Catheter - Pichardo Urine Culture - Final Culture exhibits no growth. 04/26/25 14:50 Sputum, Induced/Lukens Gram Stain - Final 04/26/25 14:50 Sputum, Induced/Lukens Respiratory Culture - Final Streptococcus group C 04/26/25 12:15 Sputum, Induced/Lukens Gram Stain - Final 04/26/25 12:15 Sputum, Induced/Lukens Respiratory Culture - Final Streptococcus group C 04/23/25 12:25 Sputum, Induced/Lukens Gram Stain - Final 04/23/25 12:25 Sputum, Induced/Lukens Respiratory Culture - Final Mixed normal respiratory ranid. No Streptococcus pneumoniae, beta-hemolytic Streptococcus or Staphylococcus aureus isolated. Assessment & Plan Assessment/Plan (1) Left carotid stenosis: PLAN: POD # 13 left CEA complicated by alcohol withdrawal, respiratory failure requiring intubation, pneumonia -cont atbx for pneumonia per ICU; wbc stable, low grade fevers intermittently -failure to wean vent, trach early in week -TF via PEG with free water due to hypernatremia -DVT/GI prophylaxis -cont ASA; plavix on hold for trach, statin on hold due to elevated CK -continue soft restraints to avoid inadvertent extubation
--- NOTE | 2025-05-04 10:48 | PCM.PN.TICU ---
Objective Data Objective Data Vital Signs: Vital Signs Last response Temperature 37.2 C 05/04/25 10:00 Temperature Source Core 05/04/25 10:00 Pulse Rate 65 05/04/25 10:00 Pulse Strength Weak (1+) 05/04/25 08:18 Respiratory Rate 13 05/04/25 10:00 Respiratory Effort Mechanically Ventilated 05/04/25 08:00 Respiratory Depth Normal 05/04/25 08:00 Respiratory Pattern Normal 05/04/25 08:56 Blood Pressure 146/66 H 05/04/25 10:00 Blood Pressure Mean 92 05/04/25 10:00 Blood Pressure Source Monitor 05/04/25 10:00 Blood Pressure Position Semi-Fowlers 05/04/25 10:00 Blood Pressure Location Right Arm 05/04/25 10:00 Baseline BP 164/83 04/21/25 16:45 Pulse Ox 96 05/04/25 10:00 Oxygen Delivery Method Mechanical Ventilator 05/04/25 10:00 Oxygen Flow Rate (L/min) 75 05/03/25 11:00 Fraction of Inspired Oxygen (FIO2) 55 05/04/25 10:00 EtCo2 - Document during CPR and with ROSC 75 05/02/25 14:00 CLA-BSI maintained Yes 04/22/25 16:00 I&O: I&O Last 24 Hours 05/03/25 05/03/25 05/04/25 11:59 23:59 11:59 Intake Total 1628.59 / 3779.67 1875.59 / 3779.67 1614.38 / 1614.38 Output Total 1800 / 4150 1150 / 4150 1700 / 1700 Balance -171.41 / -370.33 725.59 / -370.33 -85.62 / -85.62 I&O: Total Stay 03/20/25 15:10 thru 05/04/25 10:47 Intake Total 30729.71 Output Total 95740 Balance 7171.71 Current Meds Ordered / Administered: Current meds ordered / Administered Generic Name Dose Route Start Last Admin Trade Name Freq PRN Reason Stop Dose Admin Acetaminophen 650 mg 04/27/25 14:56 04/29/25 16:36 Acetaminophen 650 Mg/20 Ml Udc GT 650 mg Q4H PRN PRN Administration fever pain Albuterol Sulfate 2.5 mg 04/21/25 17:07 05/02/25 15:53 Albuterol 2.5 Mg/3 Ml Vial.Neb. INHALATION 2.5 mg Q2H PRN PRN Administration SOB &/OR WHEEZING Albuterol/Ipratropium 3 ml 04/23/25 13:30 05/04/25 07:03 Ipratropium/Albuterol Sulfate 3 Ml Ampul.Neb INHALATION 3 ml Q6H.RT ANNIA Administration Aspirin 81 mg 04/29/25 08:00 05/04/25 07:39 Aspirin 81 Mg Tab.Chew GT 81 mg BREAKFAST ANNIA Administration Atorvastatin Calcium 40 mg 04/21/25 22:00 05/02/25 21:38 Atorvastatin Calcium 40 Mg Tablet PO 40 mg On Hold: 05/03/25 12:20 QHS ANNIA Administration Resume: 05/17/25 13:00 Chlorhexidine Gluconate 15 ml 04/23/25 22:00 05/04/25 07:39 Chlorhexidine 15 Ml PO 15 ml BID ANNIA Administration Chlorhexidine Gluconate 1 each 04/24/25 10:00 05/04/25 07:39 Chlorhexidine Gluc 2% Cloth 1 Each Towelette TOPICAL 1 each DAILY ANNIA Administration Cilostazol 100 mg 04/21/25 22:00 05/04/25 07:37 Cilostazol 50 Mg Tablet PO 100 mg BID ANNIA Administration Dicyclomine HCl 20 mg 04/23/25 01:06 Dicyclomine 10 Mg Capsule PO Q6H PRN PRN abdominal discomfort Docusate Sodium 100 mg 04/21/25 17:07 Docusate Sodium 100 Mg Capsule PO BID PRN PRN Constipation Enoxaparin Sodium 40 mg 04/22/25 10:00 05/03/25 10:20 Enoxaparin 40 Mg/0.4 Ml Syringe SC 40 mg DAILY ANNIA Administration Folic Acid 1 mg 04/23/25 08:00 05/04/25 07:39 Folic Acid 1 Mg Tablet PO 1 mg DAILY@0800 ANNIA Administration Furosemide 40 mg 04/29/25 10:00 05/04/25 07:40 Furosemide 40 Mg/4 Ml Vial IV 40 mg BIDLX ANNIA Administration Protocol Gabapentin 300 mg 04/23/25 01:06 Gabapentin 300 Mg Capsule PO Q8H PRN PRN moderate to severe anxiety Guaifenesin 10 ml 04/21/25 17:07 Guaifenesin 10 Ml Udc (200mg/10ml) PO Q4H PRN PRN COUGH Hydralazine HCl 10 mg 04/22/25 08:28 04/29/25 16:44 Hydralazine 20 Mg/Ml Vial IV 10 mg Q2H PRN PRN Administration SBP > 140mmHg Hydroxyzine Pamoate 50 mg 04/23/25 01:06 Hydroxyzine Erendira 25 Mg Capsule PO Q4H PRN PRN mild anxiety Fentanyl 100 mls @ 5 mls/hr 04/23/25 10:50 05/04/25 10:47 CONT INF 175 mcg/hr UD ANNIA 17.5 mls/hr Protocol Administration 50 MCG/HR Pantoprazole Sodium 40 mg/ 100 mls @ 300 mls/hr 04/24/25 10:00 05/04/25 09:38 Sodium Chloride IV Infused Q24 ANNIA Infusion Enteral Nutritional Formula 1,000 mls @ 40 mls/hr 04/24/25 11:15 05/03/25 23:10 Vital High Protein GT 40 mls/hr .Q25H ANNIA Administration Sodium Chloride 250 mls @ 15 mls/hr 04/26/25 21:23 05/04/25 07:00 IV 0 mls/hr .[id number] PRN Infusion Saline Flush Sodium Chloride 250 mls @ 15 mls/hr 04/26/25 21:23 05/01/25 05:45 IV Infused .[id number] PRN Infusion Additional IVPB Infusion Propofol 1,000 mg in 100 mls @ 5.658 mls/hr 04/28/25 08:50 05/04/25 10:00 Diprivan CONT INF 20 mcg/kg/min .Q12H ANNIA 11.3 mls/hr Protocol Titration 10 MCG/KG/MIN Cefazolin Sodium 1 gm in 50 mls @ 100 mls/hr 04/29/25 14:00 05/04/25 05:42 IV 05/06/25 06:01 Infused Q8 ANNIA Infusion Labetalol HCl 10 mg 04/22/25 08:28 05/02/25 05:04 Labetalol 20 Mg/4 Ml Vial IV 10 mg Q2H PRN PRN Administration SBP > 140mmHg Loperamide HCl 2 mg 04/23/25 01:06 Loperamide 2 Mg Capsule PO Q4H PRN PRN DIARRHEA/LOOSE STOOLS Methylprednisolone Sodium Succinate 40 mg 04/30/25 08:05 05/04/25 05:12 Methylprednisolone Sod Succ 40 Mg/Ml Vial IV 40 mg Q8 ANNIA Administration Metoprolol Succinate 50 mg 04/22/25 22:00 04/26/25 13:42 Metoprolol(Xl)Succ 50 Mg Tablet PO Not Given On Hold: 04/26/25 12:10 BID [facility] Protocol Multivitamins/Minerals 1 tablet 04/23/25 08:00 05/04/25 07:37 Multivitamins,Ther W-Minerals Tablet PO Not Given BREAKFAST ANNIA Nicotine 21 mg 05/01/25 10:00 05/04/25 07:38 Nicotine (Pbkc) 21 Mg Patch TD 21 mg DAILY ANNIA Administration Ondansetron HCl 4 mg 04/21/25 17:07 05/02/25 14:19 Ondansetron 4 Mg/2 Ml Vial IV 4 mg Q8H PRN PRN Administration NAUSEA/VOMITING Polyethylene Glycol 17 gm 04/27/25 04:16 05/01/25 21:16 Polyethylene Glycol 3350 17 Gm Packet PO 17 gm DAILY PRN PRN Administration constipation Polyethylene Glycol 17 gm 04/29/25 10:00 05/04/25 07:38 Polyethylene Glycol 3350 17 Gm Packet PO 17 gm DAILY ANNIA Administration Senna/Docusate Sodium 2 tablet 04/29/25 10:00 05/04/25 07:38 Senna/Docusate Sodium 1 Tablet PO 2 tablet BID ANNIA Administration Sodium Chloride 10 - 40 ml 04/21/25 16:59 05/04/25 07:40 0.9% Saline Lock 10 Ml Syringe IV 20 ml UD PRN Administration SALINE FLUSH Thiamine HCl 100 mg 04/23/25 08:00 05/04/25 07:38 Thiamine Hydrochloride 100 Mg Tablet PO 100 mg DAILYCM ANNIA Administration Lab / Micro Data 05/04/25 05:00 05/04/25 10:45 Labs: Laboratory Results - last 24 hr 05/04/25 05:00: WBC 14.9 H, RBC 3.04 L, Hgb 9.9 L, Hct 30.8 L, MCV 101.3 H, MCH 32.6 H, MCHC 32.1, RDW Std Deviation 53.0 H, RDW Coeff of Nicola 14.4, Plt Count 629 H, MPV 9.8, Immature Gran % (Auto) 2.200 H, Neut % (Auto) 81.5 H, Lymph % (Auto) 9.8 L, [place] % (Auto) 5.3, Eos % (Auto) 0.7, Baso % (Auto) 0.5, Absolute Neuts (auto) 12.1 H, Absolute Lymphs (auto) 1.46, Nucleated RBC % 0, Sodium 148 H, Potassium 3.1 L, Chloride 104, Carbon Dioxide 33.6 H, Anion Gap 11, BUN 45 H, Creatinine 0.78, Estim Creat Clear Calc 87.65, Est GFR (MDRD) Non-Af 92, BUN/Creatinine Ratio 57.9 H, Glucose 153 H, Calcium 8.8, Total Bilirubin 0.22, AST 115 H, ALT 90 H, Alkaline Phosphatase 108, Total Creatine Kinase 954 H, Total Protein 6.5, Albumin 2.9 L, Globulin 3.6, Albumin/Globulin Ratio 0.8 L Assessment and Plan . Assessment and plan: HPI Patient seen and examined Chart and data reviewed He is sedated - NAD MV 7-8 LPM, PIP 24, FiO2 0.55+10 TF via PEG Tracheostomy placement planned this week EXAM GEN sedated VS as above HEENT NENA NECK obese COR RRR CHEST diminished ABD soft EXT minimal edema SKIN w/d VIRAL sedated A/P 1. Acute respiratory failure requiring prolonged MV support 2. Delirium / encephalopathy 3. Alcohol abuse and w/d syndrome 4. VAP 5. Tobacco use / COPD 6. ASCVD / s/p CEA 7. Elevated LFT 8. Rhabdomyolysis 9. Hypernatremia -MV support -sedation / analgesia -tracheostomy placement planned -increase free water - follow Na+ - supplement K+ -follow LFT, CPK - stopped statin - confer w/ Pharm D about changing propofol - LFT improved today -receiving BD and steroids -IV ABX -VTE ppx -enteral nutrition Critical Care Time: 50 minutes The entirety of this encounter was done via Telemedicine
[2025-05-04 10:59] LABS: Potassium 3.4 mmol/L (3.3-5.1)
--- NOTE | 2025-05-04 11:25 | NURSING ---
Spoke with pharmacist, El, regarding CK level and propofol. Discussed propofol running at 20 mcg/kg/min, drowsy but wakes up and follows commands, not hypotensive, not bradycardic, urine normal color. Per El, ok to continue propofol and would recommend daily CK lab checks.
[2025-05-04] MEDS: Propofol 10MG/Ml 1,000 MG/100 ML Bottle 11.3 MG CONT INF ×2 (11:36→17:36)
[2025-05-04] MEDS: 0.9% Normal Saline (250mL Bag) 250 ML 15 ML IV ×2 (13:20→13:25)
[2025-05-04 15:51] LABS: Potassium 3.3 mmol/L (3.3-5.1)
[2025-05-04] MEDS: Potassium Chloride Oral Soln 20 MEQ/15 ML UDC 40 MEQ PO (16:31)
[2025-05-05] VITALS (38 sets, daily range): BP systolic 101–185; BP diastolic 42–82; PULSE 55–92; RESP 14–26; TEMP 37.2–37.8; O2SAT 90–98; BMI 31.0
[2025-05-05] MEDS: Vital High Protein 1,000 ML 40 ML GT (00:11)
[2025-05-05] MEDS: Propofol 10MG/Ml 1,000 MG/100 ML Bottle 11.3 MG CONT INF ×4 (00:53→23:25)
[2025-05-05] MEDS: fentaNYL drip 100 ML 17.5 MCG CONT INF ×4 (03:30→21:09)
[2025-05-05] MEDS: Cefazolin 1 GM/50 ML BAG IV ×3 (05:19→21:08)
[2025-05-05 05:26] LABS: CPK Total, Creatine Kinase 503 U/L (24-195)
[2025-05-05 05:33] LABS: Hematocrit 29.4 % (40-54); Hemoglobin 9.6 g/dL (13.0-16.5); Immature Granulocytes Count 0.220 X10^3/uL (0.0-0.0); Mean Corp Hgb Conc 32.7 g/dL (32-36); Mean Corpuscular Volume 102.4 fL (80-94); Mean Platelet Vol. 10.2 fl (6.2-12.0); NRBC Flagged by Analyzer 0 % (0-5); Platelet Count 627 K/mm3 (150-450); RBC Distribution Width CV 14.2 % (11.6-14.6); RBC Distribution Width SD 53.3 fl (35.1-43.9); Red Blood Count 2.87 M/mm3 (4.6-6.2); White Blood Count 12.7 K/mm3 (4.4-11.0)
[2025-05-05 05:50] LABS: AST(SGOT) 86 U/L (<=37); Alanine Aminotransfer ALT/SGPT 67 U/L (<=46); Albumin, Serum 2.7 g/dL (3.4-4.8); Alkaline Phosphatase 95 U/L (40-129); Anion Gap 10 (5-15); BUN 50 mg/dL (4-19); BUN/Creat Ratio 61.5 RATIO (10-20); Calcium,Total 8.6 mg/dL (7.6-11.0); Carbon Dioxide 30.5 mmol/L (21.0-32.0); Chloride 104 mmol/L (98-108); Estimated Creatinine Clearance 86.92 ml/min (50-250); Globulin 3.5 g/dL (2.2-4.2); Glucose 131 mg/dL (70-99); Potassium 4.2 mmol/L (3.3-5.1)
--- NOTE | 2025-05-05 06:44 | PN.CC_ITS ---
Assessment & Plan Assessment/Plan (1) Alcohol withdrawal: (2) Acute respiratory failure with hypoxia and hypercapnia: PLAN: Plan RECOMMENDATIONS: 1. Continue assist-control mode of mechanical ventilation. Continue to wean FiO2 and PEEP as tolerated. 2. Continue propofol and fentanyl. Goal to maintain RASS of -1 to 1. 3. Tentative plans for tracheostomy on Monday. 4. Continue gentle diuresis. 5. Continue beta-asael as ordered. 6. Continue antimicrobials. 7. Continue bronchodilator therapy and corticosteroids. 8. Continue nutritional support via tube feeding. 9. Continue appropriate GI and DVT prophylaxis. IMPRESSIONS: 1. Acute hypoxemic and hypercapnic respiratory failure Most likely secondary to underlying COPD coupled with inability to compensate for metabolic demands of acute alcohol withdrawal and respiratory depression induced by sedative medication administration. Accordingly, the patient was emergently intubated on April 23. His hospital course has been complicated by the development of Streptococcus pneumonia, for which he remains on antimicrobials. The patient will be continued on bronchodilator therapy and corticosteroids, with a goal to wean FiO2 and PEEP to maintain saturations at or above 90%. In addition, given his net positive volume status, we will continue attempts at diuresis, as tolerated by hemodynamics and renal function. There are tentative plans are to proceed with tracheostomy on Monday. The patient is already status post PEG tube placement. CTA chest ruled out pulmonary embolism. 2. Acute alcohol withdrawal The patient was ultimately intubated as a consequence of his acute alcohol withdrawal. However, with supportive care, he is now outside of his window for acute alcohol withdrawal symptoms. Continue supportive care as noted above. 3. History of LVH with LVOT Continue supportive care as noted above. Caution needs to be exercised to avoid hypotension as this will increase his left ventricular outflow gradient. If vasopressors are needed, recommend initiation of phenylephrine. Recommend continuation of beta-asael for heart rate control. 4. History of bilateral carotid artery stenosis status post left carotid endarterectomy Continue routine postoperative care per vascular surgery recommendations. 5. History of chronic tobacco and alcohol dependency Complicates care, management, recovery and prognosis. Continue supportive measures as noted above. Continue tube feeding for nutritional support. Monitor electrolytes closely for evidence of refeeding syndrome. TIME: 32 minutes of critical care time, independent of procedures, was spent addressing the patient's acute hypoxemic and hypercapnic respiratory failure, acute alcohol withdrawal, review of all data and collaboration with the care team. Subjective Subjective The patient was seen and examined at the bedside this morning. Events from the last 24 hours have been reviewed. The patient currently has a low-grade fever but remains otherwise hemodynamically stable on assist-control mode of mechanical ventilation with an FiO2 requirement of 40%. White blood cell count is elevated at 12,000 with a hemoglobin of 9.6 g/dL and platelet count of 627,000. Creatinine is within normal limits. AST and ALT continue to improve. Objective Data Objective Data The patient's most recent lab work, culture data and imaging studies have all been personally reviewed. Sputum culture is demonstrating growth of group C Streptococcus. Vital Signs: Vital Signs Temp Pulse Resp BP Pulse Ox O2 Del Method O2 Flow Rate 99.3 F H 57 L 14 106/49 L 94 Mechanical Ventilator 75 05/05/25 06:00 05/05/25 06:32 05/05/25 06:32 05/05/25 06:00 05/05/25 06:32 05/05/25 06:00 05/03/25 11:00 FiO2 40 05/05/25 06:32 Oxygen Flow Rate (L/min) 75 Oxygen Delivery Method Mechanical Ventilator Weight: 209 lb 10.554 oz Body Mass Index (BMI) 31.0 Intake & Output: Intake and Output for Last 24 Hours 05/03/25 05/04/25 05/05/25 23:59 23:59 23:59 Intake Total 3504.18 / 3779.67 4016.03 / 4294.83 1751.60 / 1751.60 Output Total 2950 / 4150 3200 / 3200 350 / 350 Balance 554.18 / -370.33 816.03 / 1094.83 1401.60 / 1401.60 Lab / Micro Data Attestation: I reviewed the patient's lab results. 05/05/25 04:45 05/05/25 04:45 Labs: Laboratory Results - last 24 hr 05/04/25 10:45: Potassium 3.4 05/04/25 15:30: Potassium 3.3 05/05/25 04:45: WBC 12.7 H, RBC 2.87 L, Hgb 9.6 L, Hct 29.4 L, MCV 102.4 H, MCH 33.4 H, MCHC 32.7, RDW Std Deviation 53.3 H, RDW Coeff of Nicola 14.2, Plt Count 627 H, MPV 10.2, Immature Gran % (Auto) 1.700 H, Neut % (Auto) 79.5 H, Lymph % (Auto) 11.9 L, [place] % (Auto) 5.4, Eos % (Auto) 1.1, Baso % (Auto) 0.4, Absolute Neuts (auto) 10.1 H, Absolute Lymphs (auto) 1.51, Nucleated RBC % 0, Sodium 145, Potassium 4.2, Chloride 104, Carbon Dioxide 30.5, Anion Gap 10, BUN 50 H, Creatinine 0.81, Estim Creat Clear Calc 86.92, Est GFR (MDRD) Non-Af 91, B UN/Creatinine Ratio 61.5 H, Glucose 131 H, Calcium 8.6, Total Bilirubin < 0.15, AST 86 H, ALT 67 H, Alkaline Phosphatase 95, Total Creatine Kinase 503 H, Total Protein 6.2, Albumin 2.7 L, Globulin 3.5, Albumin/Globulin Ratio 0.8 L Micro: Microbiology 04/27/25 16:45 Blood Culture (Wb) - Left Forearm Blood Culture - Final No growth in 5 days. 04/27/25 16:50 Blood Culture (Wb) - Anticubital Right Blood Culture - Final No growth in 5 days. 04/27/25 16:30 Urine Catheter - Pichardo Urine Culture - Final Culture exhibits no growth. 04/26/25 14:50 Sputum, Induced/Lukens Gram Stain - Final 04/26/25 14:50 Sputum, Induced/Lukens Respiratory Culture - Final Streptococcus group C 04/26/25 12:15 Sputum, Induced/Lukens Gram Stain - Final 04/26/25 12:15 Sputum, Induced/Lukens Respiratory Culture - Final Streptococcus group C 04/23/25 12:25 Sputum, Induced/Lukens Gram Stain - Final 04/23/25 12:25 Sputum, Induced/Lukens Respiratory Culture - Final Mixed normal respiratory randi. No Streptococcus pneumoniae, beta-hemolytic Streptococcus or Staphylococcus aureus isolated. ABG Data ABG results: ABG 05/02/25 06:00 Specimen Type ART Sample Site R Radial pH 7.42 Bicarbonate Actual 35.5 H Total CO2 37 Base Excess 11 H O2 Saturation 91 L O2 % 75.0 ABG pCO2 54.2 H ABG pO2 62 L Herson Test Positive Respiration Rate 14 O2 Delivery Device Not entered Vent Mode AC Tidal Volume 500.0 POC PEEP 10 Radiography Diagnostic Testing: Radiology Impression Chest X-Ray 05/02/25 04:37 IMPRESSION: Endotracheal tube is in good position. Increased central vascularity. Increased bilateral basilar atelectatic changes/infiltrates. Enlarged cardiac silhouette. Reading Location: [place] [address] Physical Exam Const Constitutional Narrative: Intubated and mechanically ventilated. No ventilator dyssynchrony noted. General Appearance: ill appearing and patient mechanically ventilated HEENT normocephalic and head/scalp atraumatic Mouth: endotracheal tube in place and OG tube in place Eyes PERRL, EOMs intact bilaterally and conjunctivae normal Neck supple General: trachea midline Chest inspection of chest normal Resp Auscultation: diminished lung sounds; Negative for rales, rhonchi or wheezes Cardio regular rate, regular rhythm, S1 normal heart sound and S2 normal heart sound GI normal to inspection, nondistended, normoactive bowel sounds Extremity General Extremity: edema; Negative for clubbing Skin no rashes or lesions noted Neuro Sensorium / Orientation: sedated on vent Charges/Coding Procedures Hospitalists Procedures: 17198 Critical Care 1st Hr
--- NOTE | 2025-05-05 09:26 | CASEMGMT ---
Addendum entered by Peewee Lafleur 05/05/25 12:36: Per ICU rounds, plan for trach placement is still tomorrow, MondayMay 06. Addendum entered by Peewee Lafleur 05/05/25 12:35: [facility] reports that [facility] should be able to take the pt on Monday, regarding the pt's insurance. Warehouse Checker notified who reports pt should be ready for transfer to the LTACH during that time. CM to continue to follow. Original Note: Updated progress notes and clinicals sent to [facility] via [facility] at this time. Inquired when the pt will be able to transfer to the LTACH regarding pt's insurance and the LTACHs availability. CM to follow.
[2025-05-05] MEDS: Polyethylene Glycol 3350 17 GM PACKET PO (10:01)
[2025-05-05] MEDS: Senna/Docusate Sodium 1 Tablet 2 TABLET PO ×2 (10:02→21:10)
[2025-05-05] MEDS: Nicotine (PBKC) 21 MG Patch TD (10:03)
[2025-05-05] MEDS: Chlorhexidine 15 ML PO ×2 (10:03→21:29)
[2025-05-05] MEDS: Thiamine Hydrochloride 100 MG Tablet PO (10:03)
[2025-05-05] MEDS: CHLORHEXIDINE GLUC 2% CLOTH 1 EACH TOWELETTE TOPICAL (10:04)
[2025-05-05] MEDS: Potassium Chloride Oral Soln 20 MEQ/15 ML UDC 40 MEQ PO ×2 (10:04→21:09)
[2025-05-05] MEDS: Pantoprazole Sodium 40 MG in 0.9% Normal Saline (100mL MB+) 100 ML 300 MG IV (10:17)
[2025-05-05] MEDS: 0.9% Normal Saline (250mL Bag) 250 ML 15 ML IV (16:34)
--- NOTE | 2025-05-05 21:43 | NURSING ---
Around 1999, RN and [employer] turned patient onto R side in bed. Around 2099 with med administration, noticed patient was moved over in bed and no longer laying on back. Adjusted pillows to turn patient back to his R side. Before leaving the room, patient was scooting hips over in the bed. Educated patient on importance to stay turned from side to side with staff assistance to prevent further breakdown.
[2025-05-06] VITALS (38 sets, daily range): BP systolic 115–181; BP diastolic 47–90; PULSE 60–107; RESP 14–23; TEMP 37.3–37.8; O2SAT 19–97; BMI 31.2
[2025-05-06] MEDS: Vital High Protein 1,000 ML 40 ML GT (01:01)
[2025-05-06] MEDS: fentaNYL drip 100 ML 17.5 MCG CONT INF ×3 (02:42→14:03)
[2025-05-06] MEDS: Propofol 10MG/Ml 1,000 MG/100 ML Bottle 11.3 MG CONT INF ×2 (04:38→11:07)
[2025-05-06] MEDS: 0.9% Saline Lock 10 ML Syringe IV (05:31)
[2025-05-06] MEDS: Cefazolin 1 GM/50 ML BAG IV (05:31)
[2025-05-06 05:56] LABS: Hematocrit 31.1 % (40-54); Hemoglobin 10.0 g/dL (13.0-16.5); Immature Granulocytes Count 0.210 X10^3/uL (0.0-0.0); Mean Corp Hgb Conc 32.2 g/dL (32-36); Mean Corpuscular Volume 101.6 fL (80-94); Mean Platelet Vol. 10.0 fl (6.2-12.0); NRBC Flagged by Analyzer 0 % (0-5); Platelet Count 623 K/mm3 (150-450); RBC Distribution Width CV 13.9 % (11.6-14.6); RBC Distribution Width SD 51.8 fl (35.1-43.9); Red Blood Count 3.06 M/mm3 (4.6-6.2); White Blood Count 13.3 K/mm3 (4.4-11.0)
[2025-05-06 06:23] LABS: AST(SGOT) 76 U/L (<=37); Alanine Aminotransfer ALT/SGPT 62 U/L (<=46); Albumin, Serum 2.8 g/dL (3.4-4.8); Alkaline Phosphatase 96 U/L (40-129); Anion Gap 10 (5-15); BUN 37 mg/dL (4-19); BUN/Creat Ratio 53.6 RATIO (10-20); Calcium,Total 8.6 mg/dL (7.6-11.0); Carbon Dioxide 29.9 mmol/L (21.0-32.0); Chloride 104 mmol/L (98-108); Estimated Creatinine Clearance 88.44 ml/min (50-250); Globulin 3.4 g/dL (2.2-4.2); Glucose 127 mg/dL (70-99); Potassium 3.5 mmol/L (3.3-5.1)
[2025-05-06 06:40] LABS: CPK Total, Creatine Kinase 318 U/L (24-195)
--- NOTE | 2025-05-06 07:06 | PCM.PN.SRG ---
Subjective Subjective No significant changes, trach planned 05/06. Stephen TF Objective Data Objective Data Awake, on vent RRR Resp non labored abd soft Inc C/D/I Vital Signs: Vital Signs Temp Pulse Resp BP Pulse Ox O2 Del Method O2 Flow Rate 99.7 F H 79 14 152/61 H 90 Mechanical Ventilator 94 05/06/25 06:00 05/06/25 06:54 05/06/25 06:54 05/06/25 06:00 05/06/25 06:00 05/06/25 06:00 05/05/25 10:45 FiO2 50 05/06/25 06:00 Oxygen Flow Rate (L/min) 94 Oxygen Delivery Method Mechanical Ventilator Weight: 211 lb 13.828 oz Body Mass Index (BMI) 31.2 Intake & Output: Intake and Output for Last 24 Hours 05/04/25 05/05/25 05/06/25 23:59 23:59 23:59 Intake Total 4016.03 / 4294.83 4508.39 / 4782.48 737.73 / 737.73 Output Total 3200 / 3200 3350 / 3350 600 / 600 Balance 816.03 / 1094.83 1158.39 / 1432.48 137.73 / 137.73 Lab / Micro Data 05/06/25 05:42 05/06/25 05:42 Labs: Laboratory Results - last 24 hr 05/06/25 05:42: WBC 13.3 H, RBC 3.06 L, Hgb 10.0 L, Hct 31.1 L, MCV 101.6 H, MCH 32.7 H, MCHC 32.2, RDW Std Deviation 51.8 H, RDW Coeff of Nicola 13.9, Plt Count 623 H, MPV 10.0, Immature Gran % (Auto) 1.600 H, Neut % (Auto) 79.7 H, Lymph % (Auto) 11.0 L, [place] % (Auto) 5.6, Eos % (Auto) 1.5, Baso % (Auto) 0.6, Absolute Neuts (auto) 10.6 H, Absolute Lymphs (auto) 1.46, Nucleated RBC % 0, Sodium 144, Potassium 3.5, Chloride 104, Carbon Dioxide 29.9, Anion Gap 10, BUN 37 H, Creatinine 0.69 L, Estim Creat Clear Calc 88.44, Est GFR (MDRD) Non-Af 96, BUN/Creatinine Ratio 53.6 H, Glucose 127 H, Calcium 8.6, Total Bilirubin 0.21, AST 76 H, ALT 62 H, Alkaline Phosphatase 96, Total Creatine Kinase 318 H, Total Protein 6.2, Albumin 2.8 L, Globulin 3.4, Albumin/Globulin Ratio 0.8 L Micro: Microbiology 04/27/25 16:45 Blood Culture (Wb) - Left Forearm Blood Culture - Final No growth in 5 days. 04/27/25 16:50 Blood Culture (Wb) - Anticubital Right Blood Culture - Final No growth in 5 days. 04/27/25 16:30 Urine Catheter - Pichardo Urine Culture - Final Culture exhibits no growth. 04/26/25 14:50 Sputum, Induced/Lukens Gram Stain - Final 04/26/25 14:50 Sputum, Induced/Lukens Respiratory Culture - Final Streptococcus group C 04/26/25 12:15 Sputum, Induced/Lukens Gram Stain - Final 04/26/25 12:15 Sputum, Induced/Lukens Respiratory Culture - Final Streptococcus group C 04/23/25 12:25 Sputum, Induced/Lukens Gram Stain - Final 04/23/25 12:25 Sputum, Induced/Lukens Respiratory Culture - Final Mixed normal respiratory randi. No Streptococcus pneumoniae, beta-hemolytic Streptococcus or Staphylococcus aureus isolated. Assessment & Plan Assessment/Plan (1) Left carotid stenosis: PLAN: POD #14 left CEA complicated by alcohol withdrawal, respiratory failure requiring intubation, pneumonia -trach 05/06 -cont TF -DVT/GI prophylaxis -aspirin; resume plavix when safe post trach -electrolyte replacement -gentle diuresis
--- NOTE | 2025-05-06 07:14 | PCM.PN.SRG ---
Subjective Subjective Patient was resting calmly in bed this morning. FiO2 50, PEEP 8. Trach planned for around 1600 today. Objective Data Objective Data Vital Signs: Vital Signs Temp Pulse Resp BP Pulse Ox O2 Del Method O2 Flow Rate 99.7 F H 79 14 152/61 H 90 Mechanical Ventilator 94 05/06/25 06:00 05/06/25 06:54 05/06/25 06:54 05/06/25 06:00 05/06/25 06:00 05/06/25 06:00 05/05/25 10:45 FiO2 50 05/06/25 06:00 Oxygen Flow Rate (L/min) 94 Oxygen Delivery Method Mechanical Ventilator Weight: 211 lb 13.828 oz Body Mass Index (BMI) 31.2 Intake & Output: Intake and Output for Last 24 Hours 05/04/25 05/05/25 05/06/25 23:59 23:59 23:59 Intake Total 4016.03 / 4294.83 4508.39 / 4782.48 737.73 / 737.73 Output Total 3200 / 3200 3350 / 3350 600 / 600 Balance 816.03 / 1094.83 1158.39 / 1432.48 137.73 / 137.73 Lab / Micro Data 05/06/25 05:42 05/06/25 05:42 Labs: Laboratory Results - last 24 hr 05/06/25 05:42: WBC 13.3 H, RBC 3.06 L, Hgb 10.0 L, Hct 31.1 L, MCV 101.6 H, MCH 32.7 H, MCHC 32.2, RDW Std Deviation 51.8 H, RDW Coeff of Nicola 13.9, Plt Count 623 H, MPV 10.0, Immature Gran % (Auto) 1.600 H, Neut % (Auto) 79.7 H, Lymph % (Auto) 11.0 L, [place] % (Auto) 5.6, Eos % (Auto) 1.5, Baso % (Auto) 0.6, Absolute Neuts (auto) 10.6 H, Absolute Lymphs (auto) 1.46, Nucleated RBC % 0, Sodium 144, Potassium 3.5, Chloride 104, Carbon Dioxide 29.9, Anion Gap 10, BUN 37 H, Creatinine 0.69 L, Estim Creat Clear Calc 88.44, Est GFR (MDRD) Non-Af 96, BUN/Creatinine Ratio 53.6 H, Glucose 127 H, Calcium 8.6, Total Bilirubin 0.21, AST 76 H, ALT 62 H, Alkaline Phosphatase 96, Total Creatine Kinase 318 H, Total Protein 6.2, Albumin 2.8 L, Globulin 3.4, Albumin/Globulin Ratio 0.8 L Micro: Microbiology 04/27/25 16:45 Blood Culture (Wb) - Left Forearm Blood Culture - Final No growth in 5 days. 04/27/25 16:50 Blood Culture (Wb) - Anticubital Right Blood Culture - Final No growth in 5 days. 04/27/25 16:30 Urine Catheter - Pichardo Urine Culture - Final Culture exhibits no growth. 04/26/25 14:50 Sputum, Induced/Lukens Gram Stain - Final 04/26/25 14:50 Sputum, Induced/Lukens Respiratory Culture - Final Streptococcus group C 04/26/25 12:15 Sputum, Induced/Lukens Gram Stain - Final 04/26/25 12:15 Sputum, Induced/Lukens Respiratory Culture - Final Streptococcus group C 04/23/25 12:25 Sputum, Induced/Lukens Gram Stain - Final 04/23/25 12:25 Sputum, Induced/Lukens Respiratory Culture - Final Mixed normal respiratory randi. No Streptococcus pneumoniae, beta-hemolytic Streptococcus or Staphylococcus aureus isolated. Physical Exam Const Constitutional Narrative: intubated, alert HEENT head/scalp atraumatic, external ears normal and external nose normal Neck Neck Narrative: L neck incision site with skin glue intact, well-healing. Resp Resp Narrative: intubated, on mechanical ventilation Cardio Rate: regular rate Skin no rashes or lesions noted Neuro moves all extremities Sensorium / Orientation: alert Assessment & Plan Assessment/Plan (1) Left carotid stenosis: PLAN: POD #15 left CEA complicated by alcohol withdrawal, respiratory failure requiring intubation, pneumonia -trach scheduled for 1600 today -cont TF -DVT/GI prophylaxis -aspirin; resume plavix when safe post trach -gentle diuresis Charges/Coding Procedures Integumentary [id number]: [id number] Global Visit
--- NOTE | 2025-05-06 07:18 | PCM.PN.INT ---
Assessment & Plan Assessment/Plan (1) Alcohol withdrawal: (2) Acute respiratory failure with hypoxia and hypercapnia: PLAN: Plan RECOMMENDATIONS: 1. Continue assist-control mode of mechanical ventilation. Continue to wean FiO2 and PEEP as tolerated. 2. Continue propofol and fentanyl. Goal to maintain RASS of -1 to 1. 3. Tentative plans for tracheostomy later today. 4. Continue gentle diuresis. Will add one-time dose of metolazone as well today. 5. Continue beta-asael as ordered. 6. Continue bronchodilator therapy and corticosteroids. 7. Continue nutritional support via tube feeding. 8. Continue appropriate GI and DVT prophylaxis. 9. Tentative plans for LTACH disposition tomorrow. IMPRESSIONS: 1. Acute hypoxemic and hypercapnic respiratory failure Most likely secondary to underlying COPD coupled with inability to compensate for metabolic demands of acute alcohol withdrawal and respiratory depression induced by sedative medication administration. Accordingly, the patient was emergently intubated on April 23. His hospital course has been complicated by the development of Streptococcus pneumonia, for which he has completed a treatment course of antimicrobials. The patient will be continued on bronchodilator therapy and corticosteroids, with a goal to wean FiO2 and PEEP to maintain saturations at or above 90%. In addition, given his net positive volume status, we will continue attempts at diuresis, as tolerated by hemodynamics and renal function. There are tentative plans are to proceed with tracheostomy later today. The patient is already status post PEG tube placement. CTA chest ruled out pulmonary embolism. 2. Acute alcohol withdrawal The patient was ultimately intubated as a consequence of his acute alcohol withdrawal. However, with supportive care, he is now outside of his window for acute alcohol withdrawal symptoms. Continue supportive care as noted above. 3. History of LVH with LVOT Continue supportive care as noted above. Caution needs to be exercised to avoid hypotension as this will increase his left ventricular outflow gradient. If vasopressors are needed, recommend initiation of phenylephrine. Recommend continuation of beta-asael for heart rate control. 4. History of bilateral carotid artery stenosis status post left carotid endarterectomy Continue routine postoperative care per vascular surgery recommendations. 5. History of chronic tobacco and alcohol dependency Complicates care, management, recovery and prognosis. Continue supportive measures as noted above. Resume tube feeding for nutritional support once tracheostomy has been completed. TIME: 34 minutes of critical care time, independent of procedures, was spent addressing the patient's acute hypoxemic and hypercapnic respiratory failure, acute alcohol withdrawal, review of all data and collaboration with the care team. Subjective Subjective The patient was seen and examined at the bedside this morning. Events from the last 24 hours have been reviewed. The patient currently has a low-grade fever but remains otherwise hemodynamically stable on assist-control mode mechanical ventilation with an FiO2 requirement of 50% and PEEP of 8. White blood cell count is mildly elevated at 13,000. Hemoglobin and platelet count are stable. Creatinine is within normal limits. There are plans for tracheostomy placement later today. Objective Data Objective Data The patient's most recent lab work, culture data and imaging studies have all been personally reviewed. Sputum culture is demonstrating growth of group C Streptococcus. Vital Signs: Vital Signs Temp Pulse Resp BP Pulse Ox O2 Del Method O2 Flow Rate 99.7 F H 79 14 152/61 H 90 Mechanical Ventilator 94 05/06/25 06:00 05/06/25 06:54 05/06/25 06:54 05/06/25 06:00 05/06/25 06:00 05/06/25 06:00 05/05/25 10:45 FiO2 50 05/06/25 06:00 Oxygen Flow Rate (L/min) 94 Oxygen Delivery Method Mechanical Ventilator Weight: 211 lb 13.828 oz Body Mass Index (BMI) 31.2 Intake & Output: Intake and Output for Last 24 Hours 05/04/25 05/05/25 05/06/25 23:59 23:59 23:59 Intake Total 4016.03 / 4294.83 4508.39 / 4782.48 737.73 / 737.73 Output Total 3200 / 3200 3350 / 3350 600 / 600 Balance 816.03 / 1094.83 1158.39 / 1432.48 137.73 / 137.73 Lab / Micro Data Attestation: I reviewed the patient's lab results. 05/06/25 05:42 05/06/25 05:42 Labs: Laboratory Results - last 24 hr 05/06/25 05:42: WBC 13.3 H, RBC 3.06 L, Hgb 10.0 L, Hct 31.1 L, MCV 101.6 H, MCH 32.7 H, MCHC 32.2, RDW Std Deviation 51.8 H, RDW Coeff of Nicola 13.9, Plt Count 623 H, MPV 10.0, Immature Gran % (Auto) 1.600 H, Neut % (Auto) 79.7 H, Lymph % (Auto) 11.0 L, [place] % (Auto) 5.6, Eos % (Auto) 1.5, Baso % (Auto) 0.6, Absolute Neuts (auto) 10.6 H, Absolute Lymphs (auto) 1.46, Nucleated RBC % 0, Sodium 144, Potassium 3.5, Chloride 104, Carbon Dioxide 29.9, Anion Gap 10, BUN 37 H, Creatinine 0.69 L, Estim Creat Clear Calc 88.44, Est GFR (MDRD) Non-Af 96, BUN/Creatinine Ratio 53.6 H, Glucose 127 H, Calcium 8.6, Total Bilirubin 0.21, AST 76 H, ALT 62 H, Alkaline Phosphatase 96, Total Creatine Kinase 318 H, Total Protein 6.2, Albumin 2.8 L, Globulin 3.4, Albumin/Globulin Ratio 0.8 L Micro: Microbiology 04/27/25 16:45 Blood Culture (Wb) - Left Forearm Blood Culture - Final No growth in 5 days. 04/27/25 16:50 Blood Culture (Wb) - Anticubital Right Blood Culture - Final No growth in 5 days. 04/27/25 16:30 Urine Catheter - Pichardo Urine Culture - Final Culture exhibits no growth. 04/26/25 14:50 Sputum, Induced/Lukens Gram Stain - Final 04/26/25 14:50 Sputum, Induced/Lukens Respiratory Culture - Final Streptococcus group C 04/26/25 12:15 Sputum, Induced/Lukens Gram Stain - Final 04/26/25 12:15 Sputum, Induced/Lukens Respiratory Culture - Final Streptococcus group C 04/23/25 12:25 Sputum, Induced/Lukens Gram Stain - Final 04/23/25 12:25 Sputum, Induced/Lukens Respiratory Culture - Final Mixed normal respiratory randi. No Streptococcus pneumoniae, beta-hemolytic Streptococcus or Staphylococcus aureus isolated. ABG Data ABG results: ABG 05/02/25 06:00 Specimen Type ART Sample Site R Radial pH 7.42 Bicarbonate Actual 35.5 H Total CO2 37 Base Excess 11 H O2 Saturation 91 L O2 % 75.0 ABG pCO2 54.2 H ABG pO2 62 L Herson Test Positive Respiration Rate 14 O2 Delivery Device Not entered Vent Mode AC Tidal Volume 500.0 POC PEEP 10 Radiography Diagnostic Testing: Radiology Impression Chest X-Ray 05/02/25 04:37 IMPRESSION: Endotracheal tube is in good position. Increased central vascularity. Increased bilateral basilar atelectatic changes/infiltrates. Enlarged cardiac silhouette. Reading Location: [place] [address] Physical Exam Const Constitutional Narrative: Intubated and mechanically ventilated. No ventilator dyssynchrony noted. General Appearance: ill appearing and patient mechanically ventilated HEENT normocephalic and head/scalp atraumatic Mouth: endotracheal tube in place and OG tube in place Eyes PERRL, EOMs intact bilaterally and conjunctivae normal Neck supple General: trachea midline Chest inspection of chest normal Resp Auscultation: diminished lung sounds; Negative for rales, rhonchi or wheezes Cardio regular rate, regular rhythm, S1 normal heart sound and S2 normal heart sound GI normal to inspection, nondistended, normoactive bowel sounds Extremity General Extremity: edema; Negative for clubbing Skin no rashes or lesions noted Neuro Sensorium / Orientation: sedated on vent Charges/Coding Procedures Hospitalists Procedures: [id number] Critical Care 1st Hr
[2025-05-06] MEDS: Pantoprazole Sodium 40 MG in 0.9% Normal Saline (100mL MB+) 100 ML 300 MG IV (08:13)
[2025-05-06] MEDS: Chlorhexidine 15 ML PO ×2 (08:19→22:03)
[2025-05-06] MEDS: CHLORHEXIDINE GLUC 2% CLOTH 1 EACH TOWELETTE TOPICAL (08:19)
[2025-05-06] MEDS: Polyethylene Glycol 3350 17 GM PACKET PO (08:20)
[2025-05-06] MEDS: Thiamine Hydrochloride 100 MG Tablet PO (08:20)
[2025-05-06] MEDS: Senna/Docusate Sodium 1 Tablet 2 TABLET PO ×2 (08:20→22:03)
[2025-05-06] MEDS: Nicotine (PBKC) 21 MG Patch TD (08:20)
[2025-05-06] MEDS: Potassium Chloride Oral Soln 20 MEQ/15 ML UDC 40 MEQ PO ×2 (08:21→22:07)
[2025-05-06] MEDS: Magnesium Citrate 300 ML 150 ML PO (09:18)
--- NOTE | 2025-05-06 09:45 | CASEMGMT ---
Pt is scheduled for trach placement today at 4p. Notified [facility] via [facility] along with updated clinicals. RN CM to the pt's room. Pt's Nephew, Fritz, at the bedside. Updated Fritz that the tentative plan is to get the pt to the LTACH tomorrow and that transportation will be set up through [facility]. Fritz states understanding and denies further questions or concerns at this time. CM to follow.
--- NOTE | 2025-05-06 11:10 | NURSING ---
O2 sats down to 85%, ETT and oral suctioned on 100% FiO2, sats continue to stay 87%, increased FiO2 on ventilator to 60% and sats improved to 93%
--- NOTE | 2025-05-06 14:02 | WOUNDNOTE ---
wound photo: sacrum
--- NOTE | 2025-05-06 15:32 | PRE.ANES_ITS ---
ASA Classification* ASA Classification ASA Classification: 4 (Significant vascular disease. HTN. See cardiology notes. Significant LVOT gradient. ) Assessment & Plan Anesthesia* Anesthesia Assessment Anesthesia Assessment: Discussed sedation and/or anesthesia options, risks, benefits, and alternatives with patient/parents/legal guardian/POA. Questions invited. The patient/parents/legal guardian/POA seems to understand and agrees to proceed with anesthesia plan. Reviewed the physical assessment, medical history, allergy history and patient home medications list prior to surgery/procedure/anesthetic and documented any changes. Performed airway and anesthesia risk assessments. This is a patient known to me, 79 y/o M who presented for carotid surgery, and successfully had surgery and was extubated and sent to the floor in stable condition. Unfortunately, since then, most likely due to alcohol withdrawals and sedative medication administration, the patient required intubation on 04/23. Since 04/23, the patient has not been able to be weaned off the ventilator and so the patient is now presenting for tracheostomy / to acute hypoxemic and hypercapnic respiratory failure. In addition, he has a history of LVH with LVOT, so phenylephrine would be the pressor of choice for this gentleman. FiO2 currently at 50%, with PEEP of 8 as per leather toggler note Anesthesia Type Anesthesia Type: General History Source History Obtained from:: Patient, Chart and - (POA - nephew of patient in room, Fritz (sp?) Shade. POA gave informed consent, benefits/risks/alternatives explained. POA had no questions and wished to proceed. POA states he has also spoken to Dr. Andrade about procedure. ) Anesthesia Focused Assessment* Temperature: 99.3 F Pulse Rate: 91 Blood Pressure: 154/72 Respiratory Rate: 20 Pulse Ox: 95 Oxygen Flow Rate (L/min): 94 Fraction of Inspired Oxygen (FIO2): 50 Airway Assessment Mouth opens: >3 cm Mallampati Score: III Neck Range of motion (ROM): Full ROM Labs Anesthesia Preop lab: CBC WBC, (4.4-11.0) 13.3 K/mm3 H Today, 05:42 RBC, (4.6-6.2) 3.06 M/mm3 L Today, 05:42 Hgb, (13.0-16.5) 10.0 g/dL L Today, 05:42 Hct, (40-54) 31.1 % L Today, 05:42 Plt Count, (150-450) 623 K/mm3 H Today, 05:42 CHEMISTRY Potassium, (3.3-5.1) 3.5 mmol/L Today, 05:42 Sodium, (133-145) 144 mmol/L Today, 05:42 Magnesium, (1.5-2.2) 2.0 mg/dL 04/29/25, 04:15 Phosphorus, (2.7-4.5) 5.0 mg/dL H 05/03/25, 05:20 BUN, (4-19) 37 mg/dL H Today, 05:42 Creatinine, (0.70-1.20) 0.69 mg/dL L Today, 05:42 Glucose, (70-99) 127 mg/dL H Today, 05:42 POC Glucose, (74-106) 124 mg/dL H 04/28/25, 16:57 COAG PT, (11.7-14.9) 13.0 SECONDS 03/25/25, 16:22 Pre-Assessment Diagnosis/Proposed Procedure Planned Operative Procedure(s): LEFT ENDARTERECTOMY CAROTID Anesthesia History Anesthesia History - coordinate measuring machine programmer: Anesthesia History - coordinate measuring machine programmer Hx Hospitalization No 04/03/25 11:09 Any Problems With Anesthesia No 04/03/25 11:09 Cholinesterase deficiency No 04/03/25 11:09 You/Your Family Experience No 04/03/25 11:09 fever (hyperthermia) with Relationship Recent Exposure to Contagious No 04/21/25 09:32 Disease Does patient have nerve No 05/01/25 06:40 stimulator Patient instructed to have device shut off --Does patient have Pacemaker No 05/01/25 06:40 or ICD? When Was Last Pacemaker Check QUESTION #4 FULL TEXT: You/Your Family Experience fever (hyperthermia) with Anesthesia Last Oral Intake Last Oral intake: Last Oral Intake NPO since 00:00 05/01/25 06:40 Meds taken in AM with sips of Yes 04/21/25 09:32 water? Meds patient instructed to see med list 04/21/25 09:32 take am of surgery PONV PONV - coordinate measuring machine programmer: PONV - coordinate measuring machine programmer Female No 04/03/25 11:09 HX of Motion Sickness No 04/03/25 11:09 HX of N/V After Surgery No 04/03/25 11:09 Non-Smoker No 04/03/25 11:09 Duration of Surgery greater Yes 04/03/25 11:09 than 60 minutes Number of Risk Factors 1 04/03/25 11:09 PONV Score Low Risk 04/03/25 11:09 Height & Weight Height & Weight: Anesthesia: Height & Weight Height 5 ft 9 in 05/06/25 10:09 Weight: 96.1 kg 05/06/25 10:09 Body Mass Index (BMI) 31.2 05/06/25 05:33 Respiratory Assessment Respiratory Assessment - coordinate measuring machine programmer: Respiratory Tract Infection Hx - coordinate measuring machine programmer Hx Respiratory Tract Infection No 04/03/25 11:09 STOP Sleep Apnea STOP Sleep Apnea - coordinate measuring machine programmer: STOP Sleep Apnea - coordinate measuring machine programmer Hx Hypertension Yes: CONTROLLED WITH MEDS 04/30/25 13:22 Hx Sleep Apnea No 04/21/25 16:45 CPAP BIPAP Do you snore loudly (louder No 04/03/25 11:09 than talking or can be heard Do you often feel tired/ Yes 04/03/25 11:09 fatigued/ sleepy during daytime? Has anyone observed you stop No 04/03/25 11:09 breathing during sleep? STOP Results Positive 04/21/25 16:25 QUESTION #5 FULL TEXT : Do you snore loudly (louder than talking or can be heard through closed doors)? Tobacco Use History Tobacco Use History - coordinate measuring machine programmer: Tobacco Use History - coordinate measuring machine programmer Tobacco Use Smoking Status Heavy Smoker (>10/day) 04/28/25 11:22 Hx Tobacco Use Yes 04/21/25 16:57 Years Smoking Packs Smoked per Day Smoking Cessation Date was within the last 15 years Hx Smoking Cessation Date Hx Smoking Cessation Counseling Hematologic Medial History Hematologic Hx - coordinate measuring machine programmer: Hematologic Medical Hx - rn documentation specialist Hx of Blood Transfusion No 04/03/25 11:09 Hx of Transfusion in last 3 No 04/03/25 11:09 Months Date of Last Transfusion (if within last 3 months) Ever experience any problems No 04/03/25 11:09 with transfusion(s)? Specify any problems Hx of Preganancy in last 3 N/A 04/03/25 11:09 Months Nurse Filling Out Transfusion [email or web address] 04/03/25 11:09 & Questions: Date: 04/03/25 04/03/25 11:09 Time: 11:11 04/03/25 11:09 Patient unable to answer at this time (ie. confused, unrespo /Reproduction History /Reproductive History - coordinate measuring machine programmer: /Reproductive Hx- coordinate measuring machine programmer Hx Now No 04/03/25 11:09 Gestational Age (in weeks): EDC: Hx Hx Para Hx Section SAB No 04/03/25 11:09 Does the father of the baby or his family experience fever w Father of the baby Malignant Hypertension history comment Active Medications Active Medications: Current Medications Generic Name Dose Route Start Last Admin Trade Name Freq PRN Reason Stop Dose Admin Acetaminophen 650 mg 04/27/25 14:56 04/29/25 16:36 Acetaminophen 650 Mg/20 Ml Udc GT 650 mg Q4H PRN PRN Administration fever pain Albuterol Sulfate 2.5 mg 04/21/25 17:07 05/02/25 15:53 Albuterol 2.5 Mg/3 Ml Vial.Neb. INHALATION 2.5 mg Q2H PRN PRN Administration SOB &/OR WHEEZING Albuterol/Ipratropium 3 ml 04/23/25 13:30 05/06/25 13:17 Ipratropium/Albuterol Sulfate 3 Ml Ampul.Neb INHALATION 3 ml Q6H.RT ANNIA Administration Aspirin 81 mg 04/29/25 08:00 05/06/25 08:21 Aspirin 81 Mg Tab.Chew GT 81 mg BREAKFAST ANNIA Administration Atorvastatin Calcium 40 mg 04/21/25 22:00 05/02/25 21:38 Atorvastatin Calcium 40 Mg Tablet PO 40 mg On Hold: 05/03/25 12:20 QHS ANNIA Administration Resume: 05/17/25 13:00 Chlorhexidine Gluconate 15 ml 04/23/25 22:00 05/06/25 08:19 Chlorhexidine 15 Ml PO 15 ml BID ANNIA Administration Chlorhexidine Gluconate 1 each 04/24/25 10:00 05/06/25 08:19 Chlorhexidine Gluc 2% Cloth 1 Each [place] TOPICAL 1 each DAILY ANNIA Administration Cilostazol 100 mg 04/21/25 22:00 05/06/25 08:20 Cilostazol 50 Mg Tablet PO 100 mg BID ANNIA Administration Dicyclomine HCl 20 mg 04/23/25 01:06 Dicyclomine 10 Mg Capsule PO Q6H PRN PRN abdominal discomfort Docusate Sodium 100 mg 04/21/25 17:07 Docusate Sodium 100 Mg Capsule PO BID PRN PRN Constipation Enoxaparin Sodium 40 mg 04/22/25 10:00 05/06/25 08:09 Enoxaparin 40 Mg/0.4 Ml Syringe SC Not Given DAILY ANNIA Folic Acid 1 mg 04/23/25 08:00 05/06/25 08:20 Folic Acid 1 Mg Tablet PO 1 mg DAILY@0800 ANNIA Administration Furosemide 40 mg 04/29/25 10:00 05/06/25 08:21 Furosemide 40 Mg/4 Ml Vial IV 40 mg BIDLX ANNIA Administration Protocol Gabapentin 300 mg 04/23/25 01:06 Gabapentin 300 Mg Capsule PO Q8H PRN PRN moderate to severe anxiety Guaifenesin 10 ml 04/21/25 17:07 Guaifenesin 10 Ml Udc (200mg/10ml) PO Q4H PRN PRN COUGH Hydralazine HCl 10 mg 04/22/25 08:28 04/29/25 16:44 Hydralazine 20 Mg/Ml Vial IV 10 mg Q2H PRN PRN Administration SBP > 140mmHg Hydroxyzine Pamoate 50 mg 04/23/25 01:06 Hydroxyzine Erendira 25 Mg Capsule PO Q4H PRN PRN mild anxiety Fentanyl 100 mls @ 5 mls/hr 04/23/25 10:50 05/06/25 15:00 CONT INF 175 mcg/hr UD ANNIA 17.5 mls/hr Protocol Titration 50 MCG/HR Pantoprazole Sodium 40 mg/ 100 mls @ 300 mls/hr 04/24/25 10:00 05/06/25 09:00 Sodium Chloride IV Infused Q24 ANNIA Infusion Enteral Nutritional Formula 1,000 mls @ 40 mls/hr 04/24/25 11:15 05/06/25 11:06 Vital High Protein GT Not Given .Q25H ANNIA Sodium Chloride 250 mls @ 15 mls/hr 04/26/25 21:23 05/06/25 00:10 IV 0 mls/hr .[id number] PRN Infusion Saline Flush Sodium Chloride 250 mls @ 15 mls/hr 04/26/25 21:23 05/01/25 05:45 IV Infused .[id number] PRN Infusion Additional IVPB Infusion Propofol 1,000 mg in 100 mls @ 5.658 mls/hr 04/28/25 08:50 05/06/25 15:00 Diprivan CONT INF 20 mcg/kg/min .Q12H ANNIA 11.3 mls/hr Protocol Titration 10 MCG/KG/MIN Labetalol HCl 10 mg 04/22/25 08:28 05/02/25 05:04 Labetalol 20 Mg/4 Ml Vial IV 10 mg Q2H PRN PRN Administration SBP > 140mmHg Loperamide HCl 2 mg 04/23/25 01:06 Loperamide 2 Mg Capsule PO Q4H PRN PRN DIARRHEA/LOOSE STOOLS Methylprednisolone Sodium Succinate 40 mg 05/06/25 10:00 05/06/25 08:21 Methylprednisolone Sod Succ 40 Mg/Ml Vial IV 40 mg DAILY ANNIA Administration Metoprolol Succinate 50 mg 04/22/25 22:00 04/26/25 13:42 Metoprolol(Xl)Succ 50 Mg Tablet PO Not Given On Hold: 04/26/25 12:10 BID [facility] Protocol Multivitamins/Minerals 1 tablet 04/23/25 08:00 05/06/25 06:50 Multivitamins,Ther W-Minerals Tablet PO Not Given BREAKFAST [facility] Nicotine 21 mg 05/01/25 10:00 05/06/25 08:20 Nicotine (Pbkc) 21 Mg Patch TD 21 mg DAILY ANNIA Administration Ondansetron HCl 4 mg 04/21/25 17:07 05/02/25 14:19 Ondansetron 4 Mg/2 Ml Vial IV 4 mg Q8H PRN PRN Administration NAUSEA/VOMITING Polyethylene Glycol 17 gm 04/27/25 04:16 05/01/25 21:16 Polyethylene Glycol 3350 17 Gm Packet PO 17 gm DAILY PRN PRN Administration constipation Polyethylene Glycol 17 gm 04/29/25 10:00 05/06/25 08:20 Polyethylene Glycol 3350 17 Gm Packet PO 17 gm DAILY ANNIA Administration Potassium Chloride 40 meq 05/04/25 22:00 05/06/25 08:21 Potassium Chloride Oral Soln 20 Meq/15 Ml Udc PO 40 meq BID ANNIA Administration Senna/Docusate Sodium 2 tablet 04/29/25 10:00 05/06/25 08:20 Senna/Docusate Sodium 1 Tablet PO 2 tablet BID ANNIA Administration Sodium Chloride 10 - 40 ml 04/21/25 16:59 05/06/25 05:31 0.9% Saline Lock 10 Ml Syringe IV 10 ml UD PRN Administration SALINE FLUSH Thiamine HCl 100 mg 04/23/25 08:00 05/06/25 08:20 Thiamine Hydrochloride 100 Mg Tablet PO 100 mg DAILYCM ANNIA Administration PFSH Medical History Wears glasses Wears dentures Alcohol use High cholesterol Shortness of breath on exertion Leg cramps History of pain when walking History of echocardiogram History of stress test Cardiology follow-up encounter Peripheral arterial disease Smoker Sinus tachycardia Mixed hyperlipidemia LVH (left ventricular hypertrophy) Essential (primary) hypertension Home Medications ?Medication ?Instructions ?Recorded ?Last Taken ?Type aspirin 81 mg tablet 81 mg PO QDAY [facility] 0 02/27/25 04/20/25 History atorvastatin 40 mg tablet (Lipitor) 40 mg PO QHS [facility] STEROL 02/27/25 04/20/25 History cilostazol 100 mg tablet 100 mg PO BID PVD 02/27/25 1 06/15/24 History lisinopril 20 2 tab PO QDAY BP 02/27/25 History mg-hydrochlorothiazide 12.5 mg tablet metoprolol succinate 25 mg 25 mg PO BID BP 02/27/25 06:15 History tablet,extended release 24 hr clopidogrel 75 mg tablet (Plavix) 75 mg PO DAILY PVD 9 0 days #90 tabs 03/25/25 04/20/25 Rx Allergy/AdvReac Type Severity Reaction Status Date / Time No Known Allergies Allergy Verified 04/21/25 09:29 Family History unable to obtain Surgical History History of esophagogastroduodenoscopy (EGD) Hx of colonoscopy Social History household members: none Smoking Status: Heavy Smoker (>10/day) Tobacco: How many years used: 56 alcohol intake: current alcohol intake frequency: 3 or more drinks per day Alcohol type: beer details: 7-8 beers daily substance use type: does not use caffeine: Yes Review of Systems (Anesthesia) ROS Narrative System reviewed and no additional complaints, except as documented. Physical Exam Const average body habitus Orientation / Consciousness: disoriented Resp Resp Narrative: Intubated & sedated Cardio regular rate, regular rhythm and no murmurs
[2025-05-06] MEDS: Lactated Ringers 1,000 ML 1000 ML IV (15:56)
--- NOTE | 2025-05-06 15:56 | PCM.OPRPT ---
Operative Report (Standard) Operative Information Date of Procedure: 05/06/25 Pre-Operative Diagnosis: respiratory failure Post-Operative Diagnosis: same Surgery/Procedure Performed: Tracheotomy hardware designer: Yes Cook Chili: Elijah Mari Tasks completed by orthotics prosthetics assistant: Dissecting tissue, Removing tissue, Hemostasis: Tie, Hemostasis: Electrocautery and Retracting Type of Anesthesia: General RN Documented Start/Stop Times: Operation Date: 05/06/25 16:00 Case Time Anesthesia Start 05/06/25 15:56 Into Room 05/06/25 15:56 Procedure Start 05/06/25 16:20 Procedure Start Time: 16:20 Procedure Stop Time: 16:48 Select all DRAINS/GRAFTS/IMPLANTS that apply: None Estimated Blood Loss: minimal Specimen collected: No Description of surgery: The patient was taken to the operating room 05/06/25. He was placed in supine position on the operating room table. He was given sufficient general anesthesia. The neck was prepped and draped sterilely. 1% lidocaine with epinephrine injected into the skin overlying the intended surgical incision site. An incision was made with 15 blade. This was carried down through to the subcutaneous tissue. Subcutaneous lipectomy was then performed using Bovie cautery. Large veins wer clamp cut and ligated with 3-0 silk. The midline raphae was identified. The strap muscles were lateralized with Allis clamps. The cricoid cartilage was identified. A cricoid hook was used to the superiorize the trachea. The thyroid isthmus was divided with a Bovie. A window was planned in the second tracheal ring. I incised this with a 15 blade. The window was removed with Mendiola scissors. The third tracheal ring was split with the Mendiola.. A #8 Shiley cuffed tracheotomy tube was inserted into the trachea. The inner cannula was placed and the cuff was inflated. The anesthesia circuit was hooked to the tracheotomy tube and immediate visualization of CO2 was seen. There was some bleeding around the thyroid that was addresssed with hemoblast and surgicel. The tracheotomy was sewn to the skin with 3-0 silk. Trach ties were placed around the patient's neck and the tracheotomy was tied as well. He was removed from the surgery room stable condition. Blood loss minimal, replacement none. Sponge, needle and instrument count were correct at the end of the procedure. Dr. Mari assisted on the case. Surgical Findings: #8 Shiley placed Complications Complications: No
--- NOTE | 2025-05-06 16:00 | NURSING ---
OR staff at bedside transferring patient to OR for tracheostomy placement.
[2025-05-06] MEDS: Midazolam 2 MG/2 ML Syringe IV (16:20)
[2025-05-06] MEDS: Lidocaine 1% /Epi 1:100 (20ml) 20 ML Vial (16:46)
[2025-05-06] MEDS: fentaNYL 100 MCG/2 ML Ampul IV (16:47)
--- NOTE | 2025-05-06 17:10 | PCM.POST.ANE ---
Anesthesia: Postop Eval I Current Vital Signs Temperature: 99.1 F Pulse Rate: 87 Blood Pressure: 150/81 Respiratory Rate: 17 Pulse Ox: 96 Oxygen Delivery Method: Mechanical Ventilator Assessment Airway patent: Yes Spontaneous unlabored respirations: No Mental status: Asleep nausea: No Vomiting: No Anesthesia Complication: No Fluid Hydration Crystalloid volume administer (ml): 500 Total IV fluid infused: 500 Progress Note Anesthesia document: Postop Eval 1 completed: Yes
--- NOTE | 2025-05-06 17:12 | POSTOPAN2_ITS ---
Anesthesia Postop Eval I Sum Postop Eval Completion status Anesthesia document: Postop Eval 1 completed: Yes Anesthesia Postop Eval I Summary Anesthesia Postop Eval I Summary: Anesthesia Postop Eval I: Assessment Summary Airway patent Yes 05/06/25 17:11 [email or web address] Spontaneous unlabored No 05/06/25 17:11 [email or web address] respirations Mental status Asleep 05/06/25 17:11 [email or web address] nausea No 05/06/25 17:11 [email or web address] Vomiting No 05/06/25 17:11 [email or web address] Anesthesia Postop Eval I: Fluid Summary Crystalloid volume administer 500 05/06/25 17:11 [email or web address] (ml) Colloids volume administered ( ml) Blood Product volume administered (ml) Total IV fluid infused 500 05/06/25 17:11 [email or web address] Anesthesia Postop Eval I: Summary Notes Anesthesia Complication No 05/06/25 17:11 [email or web address] Anesthesia Complication Comment: Post-operative progress note Anesthesia: Postop Eval II Evaluation Mental status: Awake and Calm Pain Level: 0 nausea: No Vomiting: No Progress Note Post-operative progress note: Post-tracheostomy. VSS in ICU, hand-off given to RN at bed-side. Dr. Andrade also present with RN INTERN and myself at hand-off. Complications Anesthesia Complication: No
--- NOTE | 2025-05-06 17:12 | PCM.POSTANE2 ---
Anesthesia Postop Eval I Sum Postop Eval Completion status Anesthesia document: Postop Eval 1 completed: Yes Anesthesia Postop Eval I Summary Anesthesia Postop Eval I Summary: Anesthesia Postop Eval I: Assessment Summary Airway patent Yes 05/06/25 17:11 [email or web address] Spontaneous unlabored No 05/06/25 17:11 [email or web address] respirations Mental status Asleep 05/06/25 17:11 [email or web address] nausea No 05/06/25 17:11 [email or web address] Vomiting No 05/06/25 17:11 [email or web address] Anesthesia Postop Eval I: Fluid Summary Crystalloid volume administer 500 05/06/25 17:11 [email or web address] (ml) Colloids volume administered ( ml) Blood Product volume administered (ml) Total IV fluid infused 500 05/06/25 17:11 [email or web address] Anesthesia Postop Eval I: Summary Notes Anesthesia Complication No 05/06/25 17:11 [email or web address] Anesthesia Complication Comment: Post-operative progress note Anesthesia: Postop Eval II Evaluation Mental status: Awake and Calm Pain Level: 0 nausea: No Vomiting: No Progress Note Post-operative progress note: Post-tracheostomy. VSS in ICU, hand-off given to RN at bed-side. Dr. Andrade also present with PHOTO PRODUCER and myself at hand-off. Complications Anesthesia Complication: No
--- NOTE | 2025-05-06 18:15 | RAD_ITS ---
PROCEDURE: CHEST 1 VIEW (PORTABLE) 05/06/2025 REASON FOR EXAM: EVAULATE FOR PNEUMOTHORAX AFTER TRACHEOTOMY TECHNIQUE: Frontal view of the chest. COMPARISON: 05/03/2025 FINDINGS: Increased interstitial markings are noted. Perihilar opacification is again noted perhaps slightly increased compared with the previous study. There is subsegmental atelectasis and/or scarring at the left lung base. There is no pneumothorax. A tracheostomy tube is present. Heart size is mildly enlarged. No definite pleural effusion. No acute osseous abnormality. RAD/Chest 1 View (Portable) IMPRESSION: No pneumothorax noted. Perihilar opacities. Pulmonary edema versus infection. Reading Location: [facility]
[2025-05-06] MEDS: fentaNYL drip 100 ML 12.5 MCG CONT INF (22:00)
[2025-05-07] VITALS (18 sets, daily range): BP systolic 140–192; BP diastolic 57–93; PULSE 99–115; RESP 4–26; TEMP 37.5–37.7; O2SAT 91–96; BMI 29.8
[2025-05-07] MEDS: Vital High Protein 1,000 ML 40 ML GT (00:40)
[2025-05-07 04:53] LABS: Hematocrit 33.8 % (40-54); Hemoglobin 11.5 g/dL (13.0-16.5); Immature Granulocytes Count 0.180 X10^3/uL (0.0-0.0); Mean Corp Hgb Conc 34.0 g/dL (32-36); Mean Corpuscular Volume 98.5 fL (80-94); Mean Platelet Vol. 10.1 fl (6.2-12.0); NRBC Flagged by Analyzer 0 % (0-5); Platelet Count 690 K/mm3 (150-450); RBC Distribution Width CV 13.7 % (11.6-14.6); RBC Distribution Width SD 49.6 fl (35.1-43.9); Red Blood Count 3.43 M/mm3 (4.6-6.2); White Blood Count 17.2 K/mm3 (4.4-11.0)
[2025-05-07 05:11] LABS: AST(SGOT) 88 U/L (<=37); Alanine Aminotransfer ALT/SGPT 79 U/L (<=46); Albumin, Serum 3.2 g/dL (3.4-4.8); Alkaline Phosphatase 109 U/L (40-129); Anion Gap 12 (5-15); BUN 28 mg/dL (4-19); BUN/Creat Ratio 40.3 RATIO (10-20); Calcium,Total 9.0 mg/dL (7.6-11.0); Carbon Dioxide 31.6 mmol/L (21.0-32.0); Chloride 100 mmol/L (98-108); Estimated Creatinine Clearance 88.44 ml/min (50-250); Globulin 3.8 g/dL (2.2-4.2); Glucose 143 mg/dL (70-99); Potassium 3.5 mmol/L (3.3-5.1)
--- NOTE | 2025-05-07 07:07 | PCM.PN.INT ---
Assessment & Plan Assessment/Plan (1) Alcohol withdrawal: (2) Acute respiratory failure with hypoxia and hypercapnia: PLAN: Plan RECOMMENDATIONS: 1. Continue assist-control mode of mechanical ventilation. Continue to wean FiO2 and PEEP as tolerated. 2. The patient is medically appropriate for LTACH disposition. 3. Continue gentle diuresis. 4. Continue beta-asael as ordered. 5. Continue bronchodilator therapy. 6. Continue nutritional support via PEG tube. 7. Continue appropriate ICU prophylaxis. IMPRESSIONS: 1. Acute hypoxemic and hypercapnic respiratory failure Most likely secondary to underlying COPD coupled with inability to compensate for metabolic demands of acute alcohol withdrawal and respiratory depression induced by sedative medication administration. Accordingly, the patient was emergently intubated on April 23. His hospital course has been complicated by the development of Streptococcus pneumonia, for which he has completed a treatment course of antimicrobials. The patient will be continued on bronchodilator therapy and corticosteroids, with a goal to wean FiO2 and PEEP to maintain saturations at or above 90%. In addition, given his net positive volume status, we will continue attempts at diuresis, as tolerated by hemodynamics and renal function. The patient underwent successful tracheostomy and PEG tube placement and is appropriate for LTACH disposition. 2. Acute alcohol withdrawal The patient was ultimately intubated as a consequence of his acute alcohol withdrawal. However, with supportive care, he is now outside of his window for acute alcohol withdrawal symptoms. Continue supportive care as noted above. 3. History of LVH with LVOT Continue supportive care as noted above. Caution needs to be exercised to avoid hypotension as this will increase his left ventricular outflow gradient. Recommend continuation of beta-asael for heart rate control. 4. History of bilateral carotid artery stenosis status post left carotid endarterectomy Continue routine postoperative care per vascular surgery recommendations. 5. History of chronic tobacco and alcohol dependency Complicates care, management, recovery and prognosis. Continue supportive measures as noted above. Continue tube feeding for nutritional support. TIME: 31 minutes of critical care time, independent of procedures, was spent addressing the patient's acute hypoxemic and hypercapnic respiratory failure, acute alcohol withdrawal, review of all data and collaboration with the care team. Subjective Subjective The patient was seen and examined at the bedside this morning. Events from the last 24 hours have been reviewed. The patient underwent successful tracheostomy placement yesterday. He remains on assist-control mode of mechanical ventilation with an FiO2 requirement of 60%. Morning labs are stable. The patient continues to tolerate tube feeding. There are plans for discharge to LTACH today. Objective Data Objective Data The patient's most recent lab work, culture data and imaging studies have all been personally reviewed. Sputum culture is demonstrating growth of group C Streptococcus. Vital Signs: Vital Signs Temp Pulse Resp BP Pulse Ox O2 Del Method O2 Flow Rate 99.7 F H 99 17 154/66 H 94 Mechanical Ventilator 94 05/07/25 07:00 05/07/25 07:00 05/07/25 07:00 05/07/25 07:00 05/07/25 07:00 05/07/25 07:00 05/06/25 15:36 FiO2 60 05/07/25 07:00 Oxygen Flow Rate (L/min) 94 Oxygen Delivery Method Mechanical Ventilator Weight: 201 lb 8.04 oz Body Mass Index (BMI) 29.8 Intake & Output: Intake and Output for Last 24 Hours 05/05/25 05/06/25 05/07/25 23:59 23:59 23:59 Intake Total 4508.39 / 4782.48 1546.84 / 1801.84 812.08 / 812.08 Output Total 3350 / 3350 4610 / 4610 1000 / 1000 Balance 1158.39 / 1432.48 -3063.16 / -2808.16 -187.92 / -187.92 Lab / Micro Data Attestation: I reviewed the patient's lab results. 05/07/25 04:35 05/07/25 04:35 Labs: Laboratory Results - last 24 hr 05/07/25 04:35: WBC 17.2 H, RBC 3.43 L, Hgb 11.5 L, Hct 33.8 L, MCV 98.5 H, MCH 33.5 H, MCHC 34.0 D, RDW Std Deviation 49.6 H, RDW Coeff of Nicola 13.7, Plt Count 690 H, MPV 10.1, Immature Gran % (Auto) 1.000 H, Neut % (Auto) 85.5 H, Lymph % (Auto) 7.1 L, Roosevelt % (Auto) 5.5, Eos % (Auto) 0.6, Baso % (Auto) 0.3, Absolute Neuts (auto) 14.7 H, Absolute Lymphs (auto) 1.21, Nucleated RBC % 0, Sodium 144, Potassium 3.5, Chloride 100, Carbon Dioxide 31.6, Anion Gap 12, BUN 28 H, Creatinine 0.69 L, Estim Creat Clear Calc 88.44, Est GFR (MDRD) Non-Af 95, BUN/Creatinine Ratio 40.3 H, Glucose 143 H, Calcium 9.0, Total Bilirubin 0.42, AST 88 H, ALT 79 H, Alkaline Phosphatase 109, Total Protein 7.0, Albumin 3.2 L, Globulin 3.8, Albumin/Globulin Ratio 0.8 L Micro: Microbiology 04/27/25 16:45 Blood Culture (Wb) - Left Forearm Blood Culture - Final No growth in 5 days. 04/27/25 16:50 Blood Culture (Wb) - Anticubital Right Blood Culture - Final No growth in 5 days. 04/27/25 16:30 Urine Catheter - Pichardo Urine Culture - Final Culture exhibits no growth. 04/26/25 14:50 Sputum, Induced/Lukens Gram Stain - Final 04/26/25 14:50 Sputum, Induced/Lukens Respiratory Culture - Final Streptococcus group C 04/26/25 12:15 Sputum, Induced/Lukens Gram Stain - Final 04/26/25 12:15 Sputum, Induced/Lukens Respiratory Culture - Final Streptococcus group C 04/23/25 12:25 Sputum, Induced/Lukens Gram Stain - Final 04/23/25 12:25 Sputum, Induced/Lukens Respiratory Culture - Final Mixed normal respiratory randi. No Streptococcus pneumoniae, beta-hemolytic Streptococcus or Staphylococcus aureus isolated. ABG Data ABG results: ABG 05/02/25 06:00 Specimen Type ART Sample Site R Radial pH 7.42 Bicarbonate Actual 35.5 H Total CO2 37 Base Excess 11 H O2 Saturation 91 L O2 % 75.0 ABG pCO2 54.2 H ABG pO2 62 L Herson Test Positive Respiration Rate 14 O2 Delivery Device Not entered Vent Mode AC Tidal Volume 500.0 POC PEEP 10 Radiography Diagnostic Testing: Radiology Impression Chest X-Ray 05/06/25 18:15 IMPRESSION: No pneumothorax noted. Perihilar opacities. Pulmonary edema versus infection. Reading Location: [facility] Physical Exam Const alert and no apparent distress Constitutional Narrative: Remains mechanically ventilated. General Appearance: ill appearing and patient mechanically ventilated HEENT normocephalic and head/scalp atraumatic HEENT Narrative: Tracheostomy site intact. Eyes PERRL, EOMs intact bilaterally and conjunctivae normal Neck supple General: trachea midline Chest inspection of chest normal Resp Auscultation: diminished lung sounds; Negative for rales, rhonchi or wheezes Cardio regular rate, regular rhythm, S1 normal heart sound and S2 normal heart sound GI normal to inspection, nondistended, normoactive bowel sounds Inspection: GI tube present Extremity General Extremity: edema; Negative for clubbing Skin no rashes or lesions noted Neuro CN's II-XII intact bilaterally and no focal motor deficits Psych Mood & Affect: flat affect Charges/Coding Procedures Hospitalists Procedures: 88070 Critical Care 1st Hr
[2025-05-07] MEDS: Chlorhexidine 15 ML PO (07:55)
[2025-05-07] MEDS: Potassium Chloride Oral Soln 20 MEQ/15 ML UDC 40 MEQ PO (07:55)
[2025-05-07] MEDS: Polyethylene Glycol 3350 17 GM PACKET PO (07:56)
[2025-05-07] MEDS: Nicotine (PBKC) 21 MG Patch TD (07:56)
[2025-05-07] MEDS: Senna/Docusate Sodium 1 Tablet 2 TABLET PO (07:59)
[2025-05-07] MEDS: Thiamine Hydrochloride 100 MG Tablet PO (08:00)
[2025-05-07] MEDS: Pantoprazole Sodium 40 MG in 0.9% Normal Saline (100mL MB+) 100 ML 300 MG IV (08:24)
--- NOTE | 2025-05-07 08:58 | CASEMGMT ---
Addendum entered by Peewee Lafleur 05/07/25 12:20: Signed med list provided by Adelita. Copy made. Original signed med list, transfer orders, and transport form placed in pts DC packet. Copies placed in the pt's chart. Scans of signed med list and transfer orders sent to [facility]. No further needs identified. Addendum entered by Peewee Lafleur 05/07/25 10:05: DC order placed with transfer orders. TC to [facility] who states that the earliest they can transfer the pt is 12:30pm. Pt's RN, [facility], Dr Rock, Adelita, pt's Nephew, and pt's Brother notified of transportation time. At this time, awaiting a signed med list. CM to follow. Addendum entered by Peewee Lafleur 05/07/25 09:28: [facility] states that they are able to accept the pt today. Accepting doctor is Dr. Cleary. N2N # is [phone]. Pt's RN updated. Pt's primary is Dr Marion who reports that he is currently busy and will have his PA, Adelita, work on the DC paperwork. Notified Adeltia that a DC Summary, transfer to extended care, and signed med list are required. PA reports that she is working on this now. CM to schedule transportation through [facility]. Dr Rock notified. Pt's family is not here currently. CM will contact pt's family once transportation has been set up. Original Note: Updated clinicals and trach report sent to [facility] at this time. Inquired if the pt is OK for transfer today to the [facility]. CM to follow.
--- NOTE | 2025-05-07 09:24 | DS.PCM_ITS ---
Providers Date of Admission: 04/21/25 Primary Care Physician: Dr. Renetta Botello, DO Consultations 04/23/25 00:59 Consult: Hospitalist Routine Consulting Provider: Rojas Marion Reason for Consult: need for precedex EMERGENT Consult: No MD Notified: Yes Date Notified: 04/23/25 Time Notified: 00:59 Method of Notification: Text 04/23/25 10:01 Consult: Collection Systems Worker / Pulmonary Medicine Routine Consulting Provider: Intensivists/Pulmonary Med Reason for Consult: Respiratory failure/DTs EMERGENT Consult: Yes MD Notified: Yes Date Notified: 04/23/25 Time Notified: 10:01 Method of Notification: Verbal 04/30/25 10:30 Consult: ENT Routine Consulting Provider: Ricardo Andrade Reason for Consult: Tracheostomy EMERGENT Consult: No Notified: Yes Date Notified: 04/30/25 Time Notified: 10:30 Method of Notification: Verbal 04/30/25 10:43 Consult: Gastroenterology Routine Consulting Provider: Larissa Gastroenterju Reason for Consult: PEG placement EMERGENT Consult: No Notified: Yes Date Notified: 04/30/25 Time Notified: 10:43 Method of Notification: Verbal 05/01/25 06:22 Consult: Onc/Wound/lay health advocate Routine Comment: Reason for Consult:: bilateral buttocks/coccyx Reason For Visit: Left Carotid Endarterectomy Diagnosis Discharge Diagnosis (1) Alcohol withdrawal: Status: Acute Code(s): F10.939 - Alcohol use, unspecified with withdrawal, unspecified (2) Acute respiratory failure with hypoxia and hypercapnia: Status: Acute Code(s): J96.01 - Acute respiratory failure with hypoxia; J96.02 - Acute respiratory failure with hypercapnia Medications at Discharge Home Medications aspirin 81 mg tablet 81 mg [facility] 02/27/25 atorvastatin 40 mg tablet (Lipitor) 40 mg PO QHS CHOLESTEROL 02/27/25 cilostazol 100 mg tablet 100 mg PO BID PVD 02/27/25 clopidogrel 75 mg tablet (Plavix) 75 mg PO DAILY PVD 90 days #90 tabs 03/25/25 IV with Additives 40 mls/hr GT 05/07/25 acetaminophen 650 mg/20.3 mL oral solution 650 mg (20.3 mL) G-tube Q4H PRN PRN fever pain #0 mL 05/07/25 albuterol sulfate 2.5 mg/3 mL (0.083 %) solution for nebulization 2.5 mg (3 mL) inhalation Q2H PRN PRN Sob &/Or Wheezing #0 mL 05/07/25 dicyclomine 10 mg capsule 20 mg (2 x 10 mg) PO Q6H PRN PRN abdominal discomfort #0 caps 05/07/25 docusate sodium 100 mg capsule 100 mg PO BID PRN PRN Constipation #0 caps 05/07/25 enoxaparin 40 mg/0.4 mL subcutaneous syringe 40 mg (0.4 mL) subcut DAILY #0 mL 05/07/25 folic acid 1 mg tablet 1 mg PO DAILY@0800 #0 tabs 05/07/25 furosemide 10 mg/mL injection solution 40 mg (4 mL) IV BIDLX #0 mL 05/07/25 gabapentin 300 mg capsule 300 mg PO Q8H PRN PRN moderate to severe anxiety #0 caps 05/07/25 hydroxyzine pamoate 25 mg capsule 50 mg (2 x 25 mg) PO Q4H PRN PRN mild anxiety #0 caps 05/07/25 ipratropium 0.5 mg-albuterol 3 mg (2.5 mg base)/3 mL nebulization soln 3 ml inhalation Q6H.RT #0 mL 05/07/25 methylprednisolone sodium succ 40 mg solution for injection 40 mg IV DAILY #0 ea 05/07/25 metoprolol succinate 50 mg tablet,extended release 24 hr 50 mg PO BID #0 tabs 05/07/25 multivitamin-iron 9 mg-folic acid 400 mcg-calcium and minerals tablet (Therapeutic-M) 1 tab PO BREAKFAST #0 tabs 05/07/25 nicotine 21 mg/24 hr daily transdermal patch 21 mg transdermal DAILY #0 ea 05/07/25 pantoprazole 40 mg intravenous solution 40 mg IV Q24 #0 ea 05/07/25 potassium chloride 20 mEq/15 mL oral liquid 40 meq (30 mL) PO BID #0 mL 05/07/25 sennosides 8.6 mg-docusate sodium 50 mg tablet (Stimulant Laxative Plus) 2 tab PO BID #0 tabs 05/07/25 sodium chloride 0.9 % (flush) (BD PosiFlush Normal Saline 0.9 % injection syringe) 10 - 40 ml IV UD PRN Saline Flush #0 mL 05/07/25 thiamine HCl (vitamin B1) 100 mg tablet 100 mg PO DAILYCM #0 tabs 05/07/25 Hospital Course Summary of Care Provided Hospital Course: Mr. Gerardo Kirby is a 79 y/o male who underwent left carotid endarterectomy due to severe left carotid stenosis on 04/21/2025. The procedure itself went well without complication. Postoperatively, he was routinely admitted to the ICU for ongoing hemodynamic and neurologic monitoring. Due to his history of daily alcohol consumption beers were made available for patient to drink and [facility] protocol in place to prevent/monitor for withdrawal. Unfortunately, he refused to drink the available beers and subsequently did develop severe acute alcohol withdrawal requiring Precedex and phenobarbitol and subsequently developed worsening respiratory status requiring intubation on 04/23/25. Tube feeds were started 04/24/25. Over the weekend 04/27, 04/28 he had recurrent hypotension, developed fevers, and had increasing ventilator requirements and was found to have pneumonia, strep was cultured, and IV antibiotics were initiated. Unfortunately, though he had made it through the acute alcohol withdrawal symptoms and antibiotic therapy for pneumonia he has not been able to be successfully weaned off the ventilator. Therefore, PEG was placed endoscopically on 04/30/25 for ongoing nutrition; procedure was without complication and he tolerated it well. He then underwent tracheostomy on 05/06/25; he tolerated this procedure well. He is now ventilated via trach. His ventilator requirements have been fairly stable now the last 48 hours with PEEP 8 and FiO2 50-60. He remained neurologically intact throughout his admission. Today, he is alert, he responds to commands, moves all extremities, and is able to participate in conversation with nodding/shaking his head and answers questions this way appropriately. He was hypertensive postoperatively, he had a history of poorly controlled hypertension preoperatively as well. Notably, he has severe L subclavian stenosis therefore his BPs are only accurate from his RUE. His blood pressures were difficult to control initially, at times he was hypertensive and others hypotensive, but ultimately his blood pressures have been fairly stable now the last several days. He does have a medical history significant for LVH with LVOT. His medical history is also significant for chronic tobacco use; he has been receiving nicotine patches. He has developed pressure injury to the buttocks/coccyx which are being managed with mepilex dressings and frequent turns Q2 hours. Today, his labs, ventilator requirements, and hemodynamics have been overall stable. He continues to tolerate tube feedings. He is stable for planned discharge to [facility]. His brother, Porfirio, and nephew, Fritz, who are POA have been involved in his care and disposition planning and are in agreement with plan. Physical Exam Const Constitutional Narrative: intubated, alert HEENT head/scalp atraumatic, external ears normal and external nose normal Neck Neck Narrative: L neck incision site with skin glue intact, well-healing. Resp Resp Narrative: intubated, on mechanical ventilation via tracheostomy Cardio Rate: regular rate Skin no rashes or lesions noted Neuro moves all extremities Sensorium / Orientation: alert Weight / BMI Weight Weight: 201 lb 8.04 oz Body Mass Index (BMI) 29.8 ABG / Lab / Microbiology Data 05/07/25 04:35 05/07/25 04:35 Laboratory: Laboratory Results - last 24 hr 05/07/25 04:35: WBC 17.2 H, RBC 3.43 L, Hgb 11.5 L, Hct 33.8 L, MCV 98.5 H, MCH 33.5 H, MCHC 34.0 D, RDW Std Deviation 49.6 H, RDW Coeff of Nicola 13.7, Plt Count 690 H, MPV 10.1, Immature Gran % (Auto) 1.000 H, Neut % (Auto) 85.5 H, Lymph % (Auto) 7.1 L, Walker % (Auto) 5.5, Eos % (Auto) 0.6, Baso % (Auto) 0.3, Absolute Neuts (auto) 14.7 H, Absolute Lymphs (auto) 1.21, Nucleated RBC % 0, Sodium 144, Potassium 3.5, Chloride 100, Carbon Dioxide 31.6, Anion Gap 12, BUN 28 H, C reatinine 0.69 L, Estim Creat Clear Calc 88.44, Est GFR (MDRD) Non-Af 95, B UN/Creatinine Ratio 40.3 H, Glucose 143 H, Calcium 9.0, Total Bilirubin 0.42, A ST 88 H, ALT 79 H, Alkaline Phosphatase 109, Total Protein 7.0, Albumin 3.2 L, Globulin 3.8, Albumin/Globulin Ratio 0.8 L Microbiology: Microbiology 04/27/25 16:45 Blood Culture (Wb) - Left Forearm Blood Culture - Final No growth in 5 days. 04/27/25 16:50 Blood Culture (Wb) - Anticubital Right Blood Culture - Final No growth in 5 days. 04/27/25 16:30 Urine Catheter - Pichardo Urine Culture - Final Culture exhibits no growth. 04/26/25 14:50 Sputum, Induced/Lukens Gram Stain - Final 04/26/25 14:50 Sputum, Induced/Lukens Respiratory Culture - Final Streptococcus group C 04/26/25 12:15 Sputum, Induced/Lukens Gram Stain - Final 04/26/25 12:15 Sputum, Induced/Lukens Respiratory Culture - Final Streptococcus group C 04/23/25 12:25 Sputum, Induced/Lukens Gram Stain - Final 04/23/25 12:25 Sputum, Induced/Lukens Respiratory Culture - Final Mixed normal respiratory randi. No Streptococcus pneumoniae, beta-hemolytic Streptococcus or Staphylococcus aureus isolated. Radiography Diagnostic Testing: Radiology Impression Chest X-Ray 05/06/25 18:15 IMPRESSION: No pneumothorax noted. Perihilar opacities. Pulmonary edema versus infection. Reading Location: [facility] D/C Instructions DC O2, CPAP, BIPAP Needs Home O2 Discharge instructions: No Meaningful Use Info Meaningful Use Meaningful Use Diagnoses (Choose all that apply): None applicable Discharge Plan Admission Admit Date/Time: 04/21/25 15:36 Attending Provider: Rojas Marion Primary Care Provider: Renetta Botello Consulting Providers: Rojas Marion; Alverto Rascon; Nahum Howe; Bear Osborn; Fam Rock; Mc Vila; Lara Johnson; Donavon Jacobs; Maria M Cano; Grabiel Hardin; Darline Mark; Roman Starkey; Tez Pinzon; Di Vazquez; Calvin Yanes; Cabrera Mclean; Romain Castellanos; Viktoria Badillo; Donna Carrero; Florian Mcclellan; Marika Yepez; Dwight Estrada; Emerson Quevedo; Shantel Childers; Yuliet Ware; Marisol Gonzalez; Hank Gonzalez; Shantel Friedman; Samuel Bautista; Russell Nava; Albino Salgado; Joi Garvin; Wolfgang Moseley; Capri,Dominick; Aubree Livingston; Serg Alejandro; Nathalie Gomez; Kasandra Miranda; Nicko Batres; Martafe,Marco; Jose Manuel Harvey; Sam Rea; Eyad Jonas; Rojas Meza; Ricardo Andrade; Lloyd Sanchez; Patel Blanco; Miakla Hinton; Sandi Fabian; Mikayla Payne; Samuel Renteria; Mc Maldonado Discharge Orders/Prescriptions Prescriptions: New furosemide 10 mg/mL Solution 40 mg IV BIDLX Qty: 0 0RF ipratropium-albuterol 0.5 mg-3 mg(2.5 mg base)/3 mL Solution For Nebulization 3 ml inhalation Q6H.RT Qty: 0 0RF albuterol sulfate 2.5 mg /3 mL (0.083 %) Solution For Nebulization 2.5 mg inhalation Q2H PRN PRN (Reason: Sob &/Or Wheezing) Qty: 0 0RF metoprolol succinate 50 mg Tablet Extended Release 24 Hr 50 mg PO BID Qty: 0 0RF sennosides-docusate sodium [Stimulant Laxative Plus] 8.6-50 mg Tablet 2 tab PO BID Qty: 0 0RF pantoprazole 40 mg Recon Soln 40 mg IV Q24 Qty: 0 0RF thiamine HCl (vitamin B1) 100 mg Tablet 100 mg PO DAILYCM Qty: 0 0RF potassium chloride 20 mEq/15 mL Liquid 40 meq PO BID Qty: 0 0RF nicotine 21 mg/24 hr Patch 24 Hour 21 mg transdermal DAILY Qty: 0 0RF docusate sodium 100 mg Capsule 100 mg PO BID PRN PRN (Reason: Constipation) Qty: 0 0RF gabapentin 300 mg Capsule 300 mg PO Q8H PRN PRN (Reason: moderate to severe anxiety) Qty: 0 0RF methylprednisolone sodium succ 40 mg Recon Soln 40 mg IV DAILY Qty: 0 0RF folic acid 1 mg Tablet 1 mg PO DAILY@0800 Qty: 0 0RF dicyclomine 10 mg Capsule 20 mg PO Q6H PRN PRN (Reason: abdominal discomfort) Qty: 0 0RF hydroxyzine pamoate 25 mg Capsule 50 mg PO Q4H PRN PRN (Reason: mild anxiety) Qty: 0 0RF enoxaparin 40 mg/0.4 mL Syringe 40 mg subcut DAILY Qty: 0 0RF sodium chloride 0.9 % (flush) [BD PosiFlush Normal Saline 0.9] Syringe 10 - 40 ml IV UD PRN (Reason: Saline Flush) Qty: 0 0RF Therapeutic-M 9 mg iron-400 mcg Tablet 1 tab PO BREAKFAST Qty: 0 0RF acetaminophen 650 mg/20.3 mL Solution 650 mg G-tube Q4H PRN PRN (Reason: fever pain) Qty: 0 0RF IV with Additives Vital High Protein 1000 ML 40 mls/hr GT Ordered By: Adelita Ram PA Last Taken: 05/07/25 00:40 40 mls/hr Continued atorvastatin [Lipitor] 40 mg tablet 40 mg PO QHS cilostazol 100 mg tablet 100 mg PO BID aspirin 81 mg tablet 81 mg PO QDAY clopidogrel [Plavix] 75 mg tablet 75 mg PO DAILY 90 Days Qty: 90 0RF Discontinued lisinopril-hydrochlorothiazide 20-12.5 mg tablet 2 tab PO QDAY metoprolol succinate 25 mg tablet extended release 24 hr 25 mg PO BID Referrals / Follow Up: Renetta Botello DO [Primary Care Provider, Family Practice] Disposition Disposition (needs filled in before D/C Order can be placed): Medical Equipment Repair Technician Acute Care Charges/Coding Procedures Integumentary [id number]: [id number] Global Visit
--- NOTE | 2025-05-07 09:41 | TREXTCAR_ITS ---
Diet Diet Order/Speech Therapy: INPATIENT Hospital Diet / Speech Therapy Order(s) 04/24/25 10:43 NPO [Diet: Nothing Per Oral] Tube Feed: currently on Vital HP 40 mL/hour with 250 mL water flushes every 6 hours Routine Orders/Code Status Change Cárdenas Catheter: cárdenas in place Routine Lab Work: CBC and BMP Code Status: Full Code DC O2, CPAP, BIPAP needs Home O2 Discharge instructions: No Wound(s) LEFT NECK: Wound Type: Surgical Incision (closed with skin glue, this will continue to flake off over the next few weeks, can be open to air) RT GROIN: Wound Type: art line site Left Lower neck: Wound Type: Surgical Incision (prior CHAR drain site, well-healed.) sacrum: Wound Type: Pressure Injury Dressing Change: foam dressing penis: Wound Type: pressure injury from Cárdenas cath Dressing Change: applied Triad cream Suggestions for Active Care Change Position every (hours): 2 Therapies Physical Therapy: Eval and Treat Occupational Therapy: Eval and Treat Speech Therapy: Eval and Treat Problem/Diagnosis (1) Alcohol withdrawal: Status: Acute Code(s): F10.939 - Alcohol use, unspecified with withdrawal, unspecified (2) Acute respiratory failure with hypoxia and hypercapnia: Status: Acute Code(s): J96.01 - Acute respiratory failure with hypoxia; J96.02 - Acute respiratory failure with hypercapnia Allergies/Procedures Done in Hospital Allergies No Known Allergies Allergy (Verified 04/21/25 09:29) Procedures: Arterial line placement (s/p removal), Intubation (s/p tracheostomy), Peg tube placement and - (Left carotid endarterectomy) Type of Care/Length of Stay Estimated LOS: More Than 30 Days Type of Care Needed: LTAC Rehab Potential: Fair Prognosis: Fair Additional Orders/Day of Discharge Day of Discharge: 05/07/25 Dietary and Speech Recommendations Dietitian Recommendations/Changes: 1. NPO while intubated; If able to extubate and advance diet, recommend cardiac diet with consistency/texture adjustments as needed per [employer]. 2. Continue enteral nutrition via PEG tube, but as medically able decrease flush to 100 ml every 4 hours: Vital HP at 40mL/hr with 100mL water flushes every 4 hours to provide 960 calories, 83grams protein, and 1402mL total free water per day. With propofol, pt is receiving ~1258 calories per day. 3. Will monitor weight trends, labs, and tube feeding. Will make adjustments to tube feeding as needed. Discharge Plan Admission Admit Date/Time: 04/21/25 15:36 Attending Provider: Rojas Marion Primary Care Provider: Renetta Botello Consulting Providers: Rojas Marion; Alverto Rascon; Nahum Howe; Bear Osborn; Fam Rock; Mc Vila; Lara Johnson; Donavon Jacobs; Maria M Cano; Grabiel Hardin; Darline Mark; Roman Starkey; Tez Pinzon; Di Vazquez; Calvin Yanes; Cabrera Mclean; Romain Castellanos; Viktoria Badillo; Donna Carrero; Florian Mcclellan; Marika Yepez; Dwight Estrada; Emerson Quevedo; Shantel Childers; Yuliet Ware; Marisol Gonzalez; Hank Gonzalez; Shantel Friedman; Samuel Bautista; Russell Nava; Albino Salgado; Joi Garvin; Lorelei,Wolfgang; Dhesi,Dominick; Aubree Livingston; Serg Alejandro; Jason,Nathalie; Ruben,Samcecile; Nicko Batres; Turfe,Marco; Wes,Jose Manuel; Sam Rea; Eyad Jonas; Rojas Meza; Ricardo Andrade; Lloyd Sanchez; Patel Blanco; Mikala Hinton; Sandi Fabian; Mikayla Payne; Samuel Renteria; Mc Maldonado Discharge Orders/Prescriptions Prescriptions: New furosemide 10 mg/mL Solution 40 mg IV BIDLX Qty: 0 0RF ipratropium-albuterol 0.5 mg-3 mg(2.5 mg base)/3 mL Solution For Nebulization 3 ml inhalation Q6H.RT Qty: 0 0RF albuterol sulfate 2.5 mg /3 mL (0.083 %) Solution For Nebulization 2.5 mg inhalation Q2H PRN PRN (Reason: Sob &/Or Wheezing) Qty: 0 0RF metoprolol succinate 50 mg Tablet Extended Release 24 Hr 50 mg PO BID Qty: 0 0RF sennosides-docusate sodium [Stimulant Laxative Plus] 8.6-50 mg Tablet 2 tab PO BID Qty: 0 0RF pantoprazole 40 mg Recon Soln 40 mg IV Q24 Qty: 0 0RF thiamine HCl (vitamin B1) 100 mg Tablet 100 mg PO DAILYCM Qty: 0 0RF potassium chloride 20 mEq/15 mL Liquid 40 meq PO BID Qty: 0 0RF nicotine 21 mg/24 hr Patch 24 Hour 21 mg transdermal DAILY Qty: 0 0RF docusate sodium 100 mg Capsule 100 mg PO BID PRN PRN (Reason: Constipation) Qty: 0 0RF gabapentin 300 mg Capsule 300 mg PO Q8H PRN PRN (Reason: moderate to severe anxiety) Qty: 0 0RF methylprednisolone sodium succ 40 mg Recon Soln 40 mg IV DAILY Qty: 0 0RF folic acid 1 mg Tablet 1 mg PO DAILY@0800 Qty: 0 0RF dicyclomine 10 mg Capsule 20 mg PO Q6H PRN PRN (Reason: abdominal discomfort) Qty: 0 0RF hydroxyzine pamoate 25 mg Capsule 50 mg PO Q4H PRN PRN (Reason: mild anxiety) Qty: 0 0RF enoxaparin 40 mg/0.4 mL Syringe 40 mg subcut DAILY Qty: 0 0RF sodium chloride 0.9 % (flush) [BD PosiFlush Normal Saline 0.9] Syringe 10 - 40 ml IV UD PRN (Reason: Saline Flush) Qty: 0 0RF Therapeutic-M 9 mg iron-400 mcg Tablet 1 tab PO BREAKFAST Qty: 0 0RF acetaminophen 650 mg/20.3 mL Solution 650 mg G-tube Q4H PRN PRN (Reason: fever pain) Qty: 0 0RF IV with Additives Vital High Protein 1000 ML 40 mls/hr GT Ordered By: Adelita Ram PA Last Taken: 05/07/25 00:40 40 mls/hr Continued atorvastatin [Lipitor] 40 mg tablet 40 mg PO QHS cilostazol 100 mg tablet 100 mg PO BID aspirin 81 mg tablet 81 mg PO QDAY clopidogrel [Plavix] 75 mg tablet 75 mg PO DAILY 90 Days Qty: 90 0RF Discontinued lisinopril-hydrochlorothiazide 20-12.5 mg tablet 2 tab PO QDAY metoprolol succinate 25 mg tablet extended release 24 hr 25 mg PO BID Referrals / Follow Up: Renetta Botello DO [Primary Care Provider, Family Practice] Disposition Disposition (needs filled in before D/C Order can be placed): Audience Development Manager Acute Care
[2025-05-07] MEDS: Acetaminophen 650 MG/20 ML UDC GT (09:42)
[2025-05-07] MEDS: CHLORHEXIDINE GLUC 2% CLOTH 1 EACH TOWELETTE TOPICAL (11:02)
--- NOTE | 2025-05-07 11:39 | PCM.PN.SRG ---
Subjective Subjective Saw patient with nursing at bedside this morning. He was alert, interactive, calm but trying to talk. He had tracheostomy yesterday and tolerated it well. His labs are stable this morning. Vent settings overall stable. He has been accepted to [facility] in [place] for discharge. Objective Data Objective Data Vital Signs: Vital Signs Temp Pulse Resp BP Pulse Ox O2 Del Method O2 Flow Rate 99.7 F H 107 H 23 H 156/93 H 95 Mechanical Ventilator 94 05/07/25 11:00 05/07/25 11:00 05/07/25 11:00 05/07/25 11:00 05/07/25 11:00 05/07/25 09:00 05/06/25 15:36 FiO2 60 05/07/25 11:00 Oxygen Flow Rate (L/min) 94 Oxygen Delivery Method Mechanical Ventilator Weight: 201 lb 8.04 oz Body Mass Index (BMI) 29.8 Intake & Output: Intake and Output for Last 24 Hours 05/05/25 05/06/25 05/07/25 23:59 23:59 23:59 Intake Total 4508.39 / 4782.48 1546.84 / 1801.84 1162.08 / 1162.08 Output Total 3350 / 3350 4610 / 4610 1000 / 1000 Balance 1158.39 / 1432.48 -3063.16 / -2808.16 162.08 / 162.08 Lab / Micro Data 05/07/25 04:35 05/07/25 04:35 Labs: Laboratory Results - last 24 hr 05/07/25 04:35: WBC 17.2 H, RBC 3.43 L, Hgb 11.5 L, Hct 33.8 L, MCV 98.5 H, MCH 33.5 H, MCHC 34.0 D, RDW Std Deviation 49.6 H, RDW Coeff of Nicola 13.7, Plt Count 690 H, MPV 10.1, Immature Gran % (Auto) 1.000 H, Neut % (Auto) 85.5 H, Lymph % (Auto) 7.1 L, [place] % (Auto) 5.5, Eos % (Auto) 0.6, Baso % (Auto) 0.3, Absolute Neuts (auto) 14.7 H, Absolute Lymphs (auto) 1.21, Nucleated RBC % 0, Sodium 144, Potassium 3.5, Chloride 100, Carbon Dioxide 31.6, Anion Gap 12, BUN 28 H, Creatinine 0.69 L, Estim Creat Clear Calc 88.44, Est GFR (MDRD) Non-Af 95, BUN/Creatinine Ratio 40.3 H, Glucose 143 H, Calcium 9.0, Total Bilirubin 0.42, AST 88 H, ALT 79 H, Alkaline Phosphatase 109, Total Protein 7.0, Albumin 3.2 L, Globulin 3.8, Albumin/Globulin Ratio 0.8 L Micro: Microbiology 04/27/25 16:45 Blood Culture (Wb) - Left Forearm Blood Culture - Final No growth in 5 days. 04/27/25 16:50 Blood Culture (Wb) - Anticubital Right Blood Culture - Final No growth in 5 days. 04/27/25 16:30 Urine Catheter - Pichardo Urine Culture - Final Culture exhibits no growth. 04/26/25 14:50 Sputum, Induced/Lukens Gram Stain - Final 04/26/25 14:50 Sputum, Induced/Lukens Respiratory Culture - Final Streptococcus group C 04/26/25 12:15 Sputum, Induced/Lukens Gram Stain - Final 04/26/25 12:15 Sputum, Induced/Lukens Respiratory Culture - Final Streptococcus group C 04/23/25 12:25 Sputum, Induced/Lukens Gram Stain - Final 04/23/25 12:25 Sputum, Induced/Lukens Respiratory Culture - Final Mixed normal respiratory randi. No Streptococcus pneumoniae, beta-hemolytic Streptococcus or Staphylococcus aureus isolated. Radiography Diagnostic Testing: Radiology Impression Chest X-Ray 05/06/25 18:15 IMPRESSION: No pneumothorax noted. Perihilar opacities. Pulmonary edema versus infection. Reading Location: [facility] Physical Exam Const Constitutional Narrative: intubated, alert HEENT head/scalp atraumatic, external ears normal and external nose normal Neck Neck Narrative: L neck incision site with skin glue intact, well-healing. Resp Resp Narrative: intubated, on mechanical ventilation via tracheostomy Cardio Rate: regular rate Skin no rashes or lesions noted Neuro moves all extremities Sensorium / Orientation: alert Assessment & Plan Assessment/Plan (1) Left carotid stenosis: PLAN: POD #16 left CEA complicated by alcohol withdrawal, respiratory failure requiring intubation, pneumonia -trach performed yesterday -cont TF -DVT/GI prophylaxis - plan for discharge to [facility] today
--- NOTE | 2025-05-07 11:39 | NURSING ---
nurse to nurse report called to martin conte, spoke with Gayle Rn, notified of 1230 p/u time, all questions answered, ok to send pt
--- NOTE | 2025-05-07 12:40 | NURSING ---
[facility] personnel at bedside to transport patient to [facility]. Bedside handoff given, patient transferred over to [facility] monitor, ventilator and stretcher without complications.
== END 2025-05-07 13:15 | DRG 3 ==
LOC: ACINP 04-22 07:04 → ICU 04-22 07:04
PROVIDERS: Family Medicine; Internal Medicine; Internal Medicine Critical Care Medicine; Internal Medicine Gastroenterology; Internal Medicine Pulmonary Disease; Otolaryngology; Student in an Organized Health Care Education/Training Program; Admitting Provider Surgery Trauma Surgery; PCP Family Medicine; Referring Provider Surgery Trauma Surgery; Visit Provider Surgery Trauma Surgery
PROC: 03CL0ZZ Extirpation of Matter from Left Internal Carotid Artery, Open Approach (ICD-10-PCS; CPT 35301; principal; 2025-04-21 11:10)
PROC: 0DJ08ZZ Inspection of Upper Intestinal Tract, Via Natural or Artificial Opening Endoscopic (ICD-10-PCS; CPT 43235; principal; 2025-05-01 11:40)
PROC: 0B110F4 Bypass Trachea to Cutaneous with Tracheostomy Device, Open Approach (ICD-10-PCS; principal; 2025-05-06 15:45)
DX: I65.23 Occlusion and stenosis of bilateral carotid arteries (principal); J13 Pneumonia due to Streptococcus pneumoniae; J96.02 Acute respiratory failure with hypercapnia; J96.01 Acute respiratory failure with hypoxia; F10.231 Alcohol dependence with withdrawal delirium; M62.82 Rhabdomyolysis; G93.40 Encephalopathy, unspecified; E87.29 Other acidosis; E87.0 Hyperosmolality and hypernatremia; J44.0 Chronic obstructive pulmonary disease with (acute) lower respiratory infection; N17.9 Acute kidney failure, unspecified; L89.892 Pressure ulcer of other site, stage 2; L89.156 Pressure-induced deep tissue damage of sacral region; I10 Essential (primary) hypertension; I73.9 Peripheral vascular disease, unspecified; E66.9 Obesity, unspecified; Z93.0 Tracheostomy status; Z93.1 Gastrostomy status; E78.2 Mixed hyperlipidemia; F17.210 Nicotine dependence, cigarettes, uncomplicated; Z79.02 Long term (current) use of antithrombotics/antiplatelets; Z79.82 Long term (current) use of aspirin; R79.89 Other specified abnormal findings of blood chemistry; Z79.899 Other long term (current) drug therapy; Z68.31 Body mass index [BMI] 31.0-31.9, adult; I51.7 Cardiomegaly
CPT/HCPCS: 31500; 31720; 36415; 36600; 71045; 71275; 76705; 80048; 80053; 80076; 80202; 82550; 82803; 82962; 82977; 83690; 83735; 84100; 84132; 84478; 85025; 85347; 85610; 85730; 86850; 86900; 86901; 87040; 87070; 87077; 87086; 87205; 88304; 88311; 94002; 94003; 94640; 94667; 94668; 94762; 97110; 97162; 97167; 97530; 97802; 97803; 99252; A4648; P9047; Q9967; A4216; G0463; J0612; J1938; J2405